=== PATIENT | female | born 1955 | race Caucasian/White ===

== ENCOUNTER → 2016-10-03 | Outpatient (CLI) | payer MEDICARE, OTHER ==
[~2016-10-03] MED LIST: AMBIEN; AMLO10TA PO; AMLO5TAB2 PO; ATOR20TA66 PO; AZIT250T5 PO; BENZ-13 PO; CARB200T76; CEFD300C3 PO; DCS100C; FLUT9.9S NS; GLIP5TAB13 PO; HCT25T; HYDR50CA PO; IBP800T PO; LIDO700A6 TP; LITH300C PO; LSRT50T PO; NITR-65 PO; NYST1000 PO; OMEG-12 PO; OMEP20CA12 PO; ONDAN4ODT PO; OXB5T PO; PRD20T PO; PRV20T PO; ROSU5TAB PO; SCR1T PO; SILV25CR TP; SITA50TA PO; SUCR1TAB PO; SULF-222 PO; TEGRETOL; TRAM50TA2 PO; TRAZ300T3 PO; TRZ100T PO; VENL150T4 PO; VENL75TA6 PO; ZLP10T
--- OUTSIDE RECORDS SUMMARY | 2016-10-03 08:12 | XMS REPORT | Continuity of Care Document ---
Author Author [facility] Organization [facility] Address Unknown Phone Unavailable Care Team Providers Care Costing Manager Name Role Phone NO, LOCAL PHYSICIAN PCP Unavailable Insurance Providers Payer Name Policy Number Subscriber Name Relationship [facility] Administration [id number] Sandra Dobbs 17 Self / Same As Patient Advance Directives Directive Response Recorded Date/Time Advance Directives No 11/07/14 11:15am Health Care Power of Bus Company Manager No 11/07/14 11:15am Organ Donor Yes 11/07/14 11:15am Resuscitation Status Full Code 11/07/14 11:15am Problems Medical Problems Problem Onset Date Status Headache Unknown Active Cough Unknown Active Insomnia Unknown Active Back strain Unknown Active Chest pain Unknown Active Candidiasis of mouth Unknown Active Leukocytosis Unknown Active Sinusitis Unknown Active Medications Medication Dose Route Sig Days/Qty Instructions Order Date Discontinued Date Status Tegretol 09/09/09 09/09/09 Discontinued Ambien 09/09/09 09/09/09 Discontinued Docusate Sodium 09/09/09 07/05/12 Discontinued Hydrochlorothiazide 09/09/09 07/05/12 Discontinued Zolpidem Tartrate 09/09/09 07/05/12 Discontinued Carbamazepine 09/09/09 07/05/12 Discontinued [place] Carbonate 300 Mg PO DAILY 07/05/12 Active [place] Carbonate 900 Mg PO BEDTIME TAKES 3 (300MG) CAPSULES 07/05/12 Active Oxybutynin Chloride 10 Mg PO TWICE A DAY 07/05/12 Active [place]-3/Dha/Epa/Fish Oil 1 Gm PO DAILY 07/05/12 07/27/13 Discontinued Losartan Potassium 50 Mg PO DAILY 07/05/12 07/27/13 Discontinued Glipizide (Glucotrol) 5 Mg PO TWICE A DAY 07/11/12 03/20/13 Discontinued Pravastatin Sod 10 Mg PO BEDTIME 07/11/12 07/27/13 Discontinued Ondansetron HCl 8 Mg PO EVERY 4HRS 10 Qty 09/07/12 07/27/13 Discontinued Sitagliptin Phosphate 1 Each PO BEDTIME 03/20/13 04/15/14 Discontinued Trazodone Hcl 300 Mg PO BEDTIME 03/20/13 09/17/14 Discontinued Omeprazole 1 Cap PO DAILY 30 Qty 03/20/13 04/15/14 Discontinued Ibuprofen 600 Mg PO THREE TIMES A DAY 90 Qty 07/27/13 09/17/14 Discontinued Trimethoprim/Sulfamethoxazole 2 Ea PO TWICE A DAY 40 Qty Higher dosing recommended due to severity of infection 02/09/14 04/15/14 Discontinued Venlafaxine Hcl 150 Mg PO DAILY 04/15/14 09/17/14 Discontinued Amlodipine Besylate 10 Mg PO DAILY 04/15/14 09/17/14 Discontinued Tramadol Hcl 50 Mg PO EVERY 6 HOURS 30 Qty 04/15/14 09/17/14 Discontinued Sitagliptin Phosphate 50 Mg PO BEDTIME 09/17/14 Active Trazodone Hcl 400 Mg PO BEDTIME 09/17/14 Active Silver Sulfadiazine TP TWICE A DAY 09/17/14 Active Omeprazole 20 Mg PO DAILY 09/17/14 09/17/14 Discontinued Venlafaxine Hcl 187.5 Mg PO DAILY TAKES 2 & 1/2 (75MG) TABLETS Active Amlodipine Besylate 10 Mg PO DAILY 09/17/14 Active Omeprazole 20 Mg PO TWICE A DAY 60 Qty 09/17/14 Active Sucralfate 1 G PO DIRECTED 120 Qty hour prior to meals. Make into a slurry by disolving in water and 09/17/14 Active Rosuvastatin Calcium 1 Each PO DAILY 30 Qty 09/17/14 11/07/14 Discontinued Atorvastatin 20 Mg PO DAILY 11/07/14 Active Cefdinir (Omnicef) 1 Each PO TWICE A DAY 20 Qty 11/07/14 11/07/14 Discontinued Nystatin (Mycostatin Oral Suspension) 5 Ml PO FOUR TIMES DAILY 280 Qty 11/07/14 11/07/14 Discontinued Cefdinir (Omnicef) 1 Each PO TWICE A DAY 20 Qty 11/07/14 Active Nystatin (Mycostatin Oral Suspension) 5 Ml PO FOUR TIMES DAILY 280 Qty 11/07/14 Active Social History Social History Problem Response Recorded Date/Time Alcohol Use Denies Use 11/07/2014 11:15am Recreational Drug Use No 11/07/2014 11:15am Recent Foreign Travel No 04/15/2014 7:17am Recent Infectious Disease Exposure No 11/07/2014 11:13am Sexually Transmitted Disease No 11/07/2014 11:15am HIV/AIDS No 11/07/2014 11:15am Smoking Status Never a Smoker 11/07/2014 11:15am Query Response Start Date Stop Date Smoking Status Never a Smoker Hospital Discharge Instructions No hospital discharge instructions. Plan of Care No plan of care. Functional Status No functional status results. Allergies, Adverse Reactions, Alerts Allergen Type Severity Reaction Status Last Updated Niacin Allergy Unknown hives/rash Active 09/16/14 Immunizations Name Given Type Date of Pneumonia Vaccine 02/04/14 Historical Date of Influenza Vaccine 02/04/14 Historical Hepatitis A No Historical Hepatitis B No Historical Tetanus Booster (TDap) Unknown Historical Vital Signs Acute Vital Signs Vital Response Date/Time Temperature (Fahrenheit) 97.2 degrees F (97.6 - 99.5) Temperature (Calculated Celsius) 36.88638 degrees C (36.4 - 37.5) Temperature Source Temporal Pulse Rate (adult) 74 bpm (60 - 90) Respiratory Rate 18 bpm (12 - 24) O2 Sat by Pulse Oximetry 98 % (88 - 100) Blood Pressure 138/82 mm Hg Pain Pain Intensity 10 Height (Feet) 5 feet Height (Inches) 1 inches Height (Calculated Centimeters) 154.804291 cm Weight (Pounds) 248 pounds Weight (Calculated Kilograms) 112.373340 kilograms Calculated BMI 46.85 Results Laboratory Results Test Name Result Units Flags Reference Collection Date/Time Result Date/ Time Comments White Blood Count 17.6 10^3/uL H 4.3-11.0 11/07/2014 12:10pm 11/07/2014 12:30pm Red Blood Count 4.49 10^6/uL 4.35-5.85 11/07/2014 12:10pm 11/07/2014 12 :30pm Hemoglobin 13.1 G/DL 11.5-16.0 11/07/2014 12:10pm 11/07/2014 12:30pm Hematocrit 39 % 35-52 11/07/2014 12:10pm 11/07/2014 12:30pm Mean Corpuscular Volume 86 FL 80-99 11/07/2014 12:10pm 11/07/2014 12: 30pm Mean Corpuscular Hemoglobin 29 PG 25-34 11/07/2014 12:10pm 11/07/2014 12:30pm Mean Corpuscular Hemoglobin Concent 34 G/DL 32-36 11/07/2014 12:10pm 12:30pm Red Cell Distribution Width 14.5 % 10.0-14.5 11/07/2014 12:10pm 2014 12:30pm Platelet Count 286 10^3/uL 130-400 11/07/2014 12:10pm 11/07/2014 12: 30pm Mean Platelet Volume 10.0 FL 7.4-10.4 11/07/2014 12:10pm 11/07/2014 12: 30pm Neutrophils (%) (Auto) 79 % H 42-75 11/07/2014 12:10pm 11/07/2014 12: 30pm Lymphocytes (%) (Auto) 11 % L 12-44 11/07/2014 12:10pm 11/07/2014 12: 30pm Monocytes (%) (Auto) 8 % 0-12 11/07/2014 12:10pm 11/07/2014 12:30pm Eosinophils (%) (Auto) 1 % 0-10 11/07/2014 12:10pm 11/07/2014 12:30pm Basophils (%) (Auto) 0 % 0-10 11/07/2014 12:10pm 11/07/2014 12:30pm Neutrophils # (Auto) 14.0 X 10^3 H 1.8-7.8 11/07/2014 12:10pm 11/07/2014 12:30pm Lymphocytes # (Auto) 2.0 X 10^3 1.0-4.0 11/07/2014 12:10pm 11/07/2014 12:30pm Monocytes # (Auto) 1.5 X 10^3 H 0.0-1.0 11/07/2014 12:10pm 11/07/2014 12: 30pm Eosinophils # (Auto) 0.2 10^3/uL 0.0-0.3 11/07/2014 12:10pm 11/07/2014 12:30pm Basophils # (Auto) 0.0 10^3/uL 0.0-0.1 11/07/2014 12:10pm 11/07/2014 12 :30pm Neutrophils % (Manual) 74 % 11/07/2014 12:10pm 11/07/2014 12:57pm Band Neutrophils 3 % 11/07/2014 12:10pm 11/07/2014 12:57pm Lymphocytes % (Manual) 16 % 11/07/2014 12:10pm 11/07/2014 12:57pm Monocytes % (Manual) 5 % 11/07/2014 12:10pm 11/07/2014 12:57pm Eosinophils % (Manual) 1 % 11/07/2014 12:10pm 11/07/2014 12:57pm Basophils % (Manual) 1 % 11/07/2014 12:10pm 11/07/2014 12:57pm Blood Morphology Comment NORMAL 11/07/2014 12:10pm 11/07/2014 12: 57pm Urine Color YELLOW 11/07/2014 1:20pm 11/07/2014 1:43pm Urine Clarity CLEAR 11/07/2014 1:20pm 11/07/2014 1:43pm Urine pH 7 5-9 11/07/2014 1:20pm 11/07/2014 1:43pm Urine Specific [place] 1.005 * 1.016-1.022 11/07/2014 1:20pm 2014 1:43pm Urine Protein NEGATIVE NEGATIVE 11/07/2014 1:20pm 11/07/2014 1:43pm Urine Glucose (UA) NEGATIVE NEGATIVE 11/07/2014 1:20pm 11/07/2014 1: 43pm Urine RBC (Auto) NEGATIVE NEGATIVE 11/07/2014 1:20pm 11/07/2014 1: 43pm Urine Ketones NEGATIVE NEGATIVE 11/07/2014 1:20pm 11/07/2014 1:43pm Urine Nitrite NEGATIVE NEGATIVE 11/07/2014 1:20pm 11/07/2014 1:43pm Urine Bilirubin NEGATIVE NEGATIVE 11/07/2014 1:20pm 11/07/2014 1: 43pm Urine Urobilinogen NORMAL MG/DL NORMAL 11/07/2014 1:20pm 11/07/2014 1: 43pm Urine Leukocyte Esterase NEGATIVE NEGATIVE 11/07/2014 1:pm 2014 1:43pm Urine RBC NONE /HPF 11/07/2014 1:pm 11/07/2014 1:43pm Urine WBC NONE /HPF 11/07/2014 1:20pm 11/07/2014 1:43pm Urine Bacteria NEGATIVE /HPF 11/07/2014 1:20pm 11/07/2014 1:43pm Urine Squamous Epithelial Cells 0-2 /HPF 11/07/2014 1:20pm 2014 1:43pm Urine Crystals NONE /LPF 11/07/2014 1:20pm 11/07/2014 1:43pm Urine Casts NONE /LPF 11/07/2014 1:pm 11/07/2014 1:43pm Urine Mucus NEGATIVE /LPF 11/07/2014 1:20pm 11/07/2014 1:43pm Urine Culture Indicated NO 11/07/2014 1:20pm 11/07/2014 1:43pm Sodium Level 139 MMOL/L 135-145 11/07/2014 12:10pm 11/07/2014 1:01pm Potassium Level 4.5 MMOL/L 3.6-5.0 11/07/2014 12:10pm 11/07/2014 1: 01pm Chloride Level 106 MMOL/L 98-107 11/07/2014 12:10pm 11/07/2014 1:01pm Carbon Dioxide Level 23 MMOL/L 21-32 11/07/2014 12:1011/07/2014 1: 01pm Blood Urea Nitrogen 11 MG/DL 7-18 11/07/2014 12:1011/07/2014 1:01pm Creatinine 0.70 MG/DL 0.60-1.30 11/07/2014 12:10pm 11/07/2014 1:01pm BUN/Creatinine Ratio 16 11/07/2014 12:10pm 11/07/2014 1:01pm Estimat Glomerular Filtration Rate > 60 11/07/2014 12:10pm 2014 1:01pm GFR INTERPRETIVE DATA UNITS FOR ESTIMATED GFR (eGFR): mL/min/1.73 M2 REFERENCE RANGE FOR ESTIMATED GFR (eGFR) eGFR NORMAL eGFR >60 MODERATELY DECREASED eGFR 30-59 SEVERLY DECREASED eGFR 15-29 KIDNEY FAILURE <15 (OR DIALYSIS) Glucose Level 198 MG/DL H 70-105 11/07/2014 12:10pm 11/07/2014 1:01pm Calcium Level 8.8 MG/DL 8.5-10.1 11/07/2014 12:10pm 11/07/2014 1:01pm Total Bilirubin 0.4 MG/DL 0.1-1.0 11/07/2014 12:10pm 11/07/2014 1:01pm Alkaline Phosphatase 102 U/L 40-136 11/07/2014 12:10pm 11/07/2014 1: 01pm Aspartate Amino Transf (AST/SGOT) 20 U/L 5-34 11/07/2014 12:10pm 2014 1:01pm Alanine Aminotransferase (ALT/SGPT) 36 U/L 0-55 11/07/2014 12:10pm 1:01pm Total Protein 6.8 G/DL 6.4-8.2 11/07/2014 12:10pm 11/07/2014 1:01pm Albumin 3.7 G/DL 3.2-4.5 11/07/2014 12:10pm 11/07/2014 1:01pm Procedures No known history of procedures. Encounters Encounter Location Date/Time Registered Emergency Room Via [facility] 11/07/14 11:14am Discharged Recurring Via [facility] 09/23/14 10:37am Recent Diagnosis
--- NOTE | 2016-10-03 09:42 | Diagnostic Imaging Report ---
CLINICAL INDICATION: Patient had routine eye exam and the doctor wants her to get an MRI of the brain. Patient states he saw something that looked darker than normal on a test he did. EXAM: MRI of the brain/orbits performed without IV contrast. Sequences include axial DWI, ADC map, axial T2, axial FLAIR, axial T1, axial gradient echo, sagittal T1, axial T2 thin through the orbits, and coronal T2 fat-sat thin through the orbits. COMPARISON: Head CT without IV contrast dated 03/02/2014. FINDINGS: There is motion artifact which obscures some portions of this exam especially on the thin cut orbital sequences. There is no evidence of acute cerebral infarct, intracranial hemorrhage, or gross mass effect. There are a few focal and patchy areas of high T2 signal white matter changes seen throughout both cerebral hemispheres and periventricular regions, likely representing chronic small vessel ischemic disease. There is normal leon-white matter distinction. The brain parenchymal volume appears appropriate for patient's age. There is no significant midline shift or herniation. The visualized [place] vascular structures have normal flow void appearance. There is no evidence of hydrocephalus. The basal cisterns are unremarkable. The skull and extracranial soft tissue are unremarkable. The paranasal sinuses are unremarkable. Orbits and globes show no significant abnormality. There is no retrobulbar mass or periorbital inflammation. IMPRESSION: Unremarkable MRI of the brain for age. Orbits show no significant abnormality as visualized. Dictated by: Dictated on workstation # [id number]
== END ==
LOC: RAD 08:09
PROVIDERS: ATTEND Psychiatry & Neurology Neurology
DX: H53.9 Unspecified visual disturbance (principal)
CPT/HCPCS: 70551

== ENCOUNTER → 2016-10-14 | Outpatient (CLI) | payer OTHER ==
[~2016-10-14] VITALS: Ht 152.4 cm; Wt 108.0 kg
[~2016-10-14] MED LIST changes: +REGADENOSON 0.4 MG/5 ML SYR (LEXISCAN) IV ONE
--- OUTSIDE RECORDS SUMMARY | 2016-10-14 07:51 | XMS REPORT | Continuity of Care Document ---
Author Author [facility] Organization [facility] Address Unknown Phone Unavailable Care Team Providers Care Embedded Software Test Engineer Name Role Phone NO, LOCAL PHYSICIAN PCP Unavailable Insurance Providers Payer Name Policy Number Subscriber Name Relationship [facility] Administration [id number] Snadra Dobbs 18 Self / Same As Patient Advance Directives Directive Response Recorded Date/Time Advance Directives No 11/07/14 11:15am Health Care Power of [place]adderman No 11/07/14 11:15am Organ Donor Yes 11/07/14 [...] 09/09/09 07/05/12 Discontinued Carbamazepine 09/09/09 07/05/12 Discontinued [place] Carbonate 300 Mg PO DAILY 07/05/12 Active [place] Carbonate 900 Mg PO BEDTIME TAKES 3 (300MG) CAPSULES 07/05/12 Active Oxybutynin Chloride 10 Mg PO TWICE A DAY 07/05/12 Active [place]-3/Dha/Epa/Fish Oil 1 Gm PO DAILY 07/05/12 07/27/13 [...] F (97.6 - 99.5) Temperature (Calculated Celsius) 36.90969 degrees C (36.4 - 37.5) Temperature Source Temporal Pulse Rate (adult) 74 bpm (60 - 90) Respiratory Rate 18 bpm (12 - 24) O2 Sat by Pulse Oximetry 98 % (88 - 100) Blood Pressure 138/82 mm Hg Pain Pain Intensity 10 Height (Feet) 5 feet Height (Inches) 1 inches Height (Calculated Centimeters) 154.404083 cm Weight (Pounds) 248 pounds Weight (Calculated Kilograms) 112.089801 kilograms Calculated BMI 46.85 Results Laboratory Results [...] 5-9 11/07/2014 1:20pm 11/07/2014 1:43pm Urine Specific [place] 1.005 * 1.016-1.022 11/07/2014 1:20pm 2014 1:43pm [...] Encounter Location Date/Time Registered Emergency Room [facility] 11/07/14 11:14am Discharged Recurring Via [facility] 09/23/14 10:37am Recent Diagnosis
[2016-10-14] MEDS: CATHETER FLUSH 10 ML SYR IV PRN ×2 (07:59→09:04)
[2016-10-14 09:03] VITALS: BP 133/85
--- NOTE | 2016-10-17 10:12 | STRESS TEST ---
PROCEDURE PHYSICIAN: JANI ALAMO RESTING AND POST REGADENOSON TECHNETIUM 99M TETROFOSMIN SPECT CT IMAGING DATE OF PROCEDURE: 10/14/2016 ORDERING PHYSICIAN: Dr. Alamo PRIMARY PHYSICIAN: Dr. Blank INDICATION FOR THE PROCEDURE: Chest discomfort, shortness of breath. Baseline images were carried out after injection of 11 mCi of technetium 99m tetrofosmin. This was followed by 0.4 mg of regadenoson and 32.6 mCi technetium 99m tetrofosmin for stress imaging. The electrocardiogram showed sinus rhythm at baseline with nonspecific T wave abnormality. This did not change significantly with the regadenoson infusion. Overall, the patient tolerated the procedure well. Review of images at rest and following stress, does not indicate any significant perfusion defects consistent with significant myocardial ischemia or infarction. Gated images show normal global left ventricular systolic function was normal regional wall motion. Left ventricular ejection fraction is calculated to be 62%. Left ventricular end volume is 69 mL. TID is absent (1.08). CONCLUSION: 1. No evidence of any significant myocardial ischemia or infarction on this study. 2. Normal regional wall motion. 3. Normal global left ventricular systolic function with a calculated ejection fraction of 62%. Job ID: [id number] Dictated Date: 10/17/2016 09:09:00 Orchestrator Date: 10/17/2016 10:06:44 / stevo
== END ==
LOC: CARD 07:46
PROVIDERS: ATTEND Internal Medicine Cardiovascular Disease
DX: E11.9 Type 2 diabetes mellitus without complications (principal); I10 Essential (primary) hypertension; R07.89 Other chest pain; R06.02 Shortness of breath
CPT/HCPCS: 78452; 93017

== ENCOUNTER → 2016-10-17 | Outpatient (CLI) | payer OTHER ==
[~2016-10-17] MED LIST changes: -REGADENOSON 0.4 MG/5 ML SYR (LEXISCAN) IV ONE
--- OUTSIDE RECORDS SUMMARY | 2016-10-17 10:49 | XMS REPORT | Continuity of Care Document ---
Author Author [facility] Organization [facility] Address Unknown Phone Unavailable Care Team Providers Care Senior Java [email or web address] Developer Name Role Phone NO, LOCAL PHYSICIAN PCP Unavailable Insurance Providers Payer Name Policy Number Subscriber Name Relationship [facility] Administration [id number] Sandra Dobbs 17 Self / Same As Patient Advance Directives Directive Response Recorded Date/Time Advance Directives No 11/07/14 11:15am Health Care Power of Real Estate Accountant No 11/07/14 11:15am Organ Donor Yes 11/07/14 [...] 09/09/09 07/05/12 Discontinued Carbamazepine 09/09/09 07/05/12 Discontinued [place] Carbonate 300 Mg PO DAILY 07/05/12 Active [place] Carbonate 900 Mg PO BEDTIME TAKES 3 (300MG) CAPSULES 07/05/12 Active Oxybutynin Chloride 10 Mg PO TWICE A DAY 07/05/12 Active [place]-3/Dha/Epa/Fish Oil 1 Gm PO DAILY 07/05/12 07/27/13 [...] F (97.6 - 99.5) Temperature (Calculated Celsius) 36.73120 degrees C (36.4 - 37.5) Temperature Source Temporal Pulse Rate (adult) 74 bpm (60 - 90) Respiratory Rate 18 bpm (12 - 24) O2 Sat by Pulse Oximetry 98 % (88 - 100) Blood Pressure 138/82 mm Hg Pain Pain Intensity 10 Height (Feet) 5 feet Height (Inches) 1 inches Height (Calculated Centimeters) 154.429763 cm Weight (Pounds) 248 pounds Weight (Calculated Kilograms) 112.598466 kilograms Calculated BMI 46.85 Results Laboratory Results [...] 5-9 11/07/2014 1:20pm 11/07/2014 1:43pm Urine Specific [place] 1.005 * 1.016-1.022 11/07/2014 1:20pm 2014 1:43pm [...] Encounter Location Date/Time Registered Emergency Room [facility] 11/07/14 11:14am Discharged Recurring Via [facility] 09/23/14 10:37am Recent Diagnosis
[2016-10-17 11:22] LABS: BASOPHILS % (AUTO) 0 % (0-10); EOSINOPHILS # (AUTO) 0.3 10^3/uL (0.0-0.3); EOSINOPHILS % (AUTO) 3 % (0-10); LYMPHOCYTES # (AUTO) 2.1 X 10^3 (1.0-4.0); LYMPHOCYTES % (AUTO) 22 % (12-44); MEAN CORPUSCULAR HEMOGLOBIN 29 PG (25-34); MEAN CORPUSCULAR HGB CONC 34 G/DL (32-36); MEAN CORPUSCULAR VOLUME 85 FL (80-99); MONOCYTES # (AUTO) 0.8 X 10^3 (0.0-1.0); MONOCYTES % (AUTO) 9 % (0-12); NEUTROPHILS # (AUTO) 6.2 X 10^3 (1.8-7.8); NEUTROPHILS % (AUTO) 65 % (42-75); PLATELET COUNT 271 10^3/uL (130-400); RED BLOOD COUNT 4.66 10^6/uL (4.35-5.85); RED CELL DISTRIBUTION WIDTH 14.8 % (10.0-14.5); WHITE BLOOD COUNT 9.4 10^3/uL (4.3-11.0)
[2016-10-17 11:39] LABS: BILIRUBIN,URINE NEGATIVE (NEGATIVE); KETONES,URINE NEGATIVE (NEGATIVE); LEUKOCYTE ESTERASE ,URINE NEGATIVE (NEGATIVE); NITRITE,URINE NEGATIVE (NEGATIVE); PH,URINE 7 (5-9); PROTEIN,URINE NEGATIVE (NEGATIVE); UROBILINOGEN,URINE NORMAL (NORMAL)
[2016-10-17 11:43] LABS: ALBUMIN 4.3 G/DL (3.2-4.5); BILIRUBIN,TOTAL 0.4 MG/DL (0.1-1.0); CALCIUM 9.4 MG/DL (8.5-10.1); CREATININE SERUM 0.95 MG/DL (0.60-1.30); POTASSIUM 3.8 MMOL/L (3.6-5.0); TOTAL PROTEIN 7.4 G/DL (6.4-8.2)
[2016-10-17 11:48] LABS: SQUAMOUS EPITHELIAL CELL,UR 25-50 /HPF
== END ==
LOC: LAB 10:44
PROVIDERS: ATTEND Orthopaedic Surgery Sports Medicine
DX: Z01.812 Encounter for preprocedural laboratory examination (principal); Z11.2 Encounter for screening for other bacterial diseases
CPT/HCPCS: 36415; 80053; 81000; 85025; 87081

== ENCOUNTER 2017-01-22 10:19 | Emergency (ER) | payer MEDICARE, OTHER ==
[~2017-01-22] VITALS: Ht 152.4 cm; Wt 104.3 kg
--- NOTE | 2017-01-22 11:39 | Diagnostic Imaging Report ---
INDICATION: Fall. Pain. COMPARISON: None FINDINGS: 3 views of the left shoulder are obtained. No acute fracture, malalignment or osseous destructive process is seen. There are degenerative changes of the acromioclavicular joint. IMPRESSION: No acute fracture is suspected. Dictated by: Dictated on workstation # [id number]
--- NOTE | 2017-01-22 11:46 | ED Fall/Injury ---
General Chief Complaint: Upper Extremity Stated Complaint: R SHOULDER PAIN, FALL Nursing Triage Note: PT HAD FALL THIS AM AND CO OF L SHOULDER PAIN Source: patient, EMS Exam Limitations: no limitations History of Present Illness Time seen by provider: 10:29 Initial Comments This patient presents to emergency room with left shoulder pain after having a fall at her apartment building. She fell onto a carpeted surface. She has frequent falls due to cerebral palsy. She denies any prodrome. She denies any head or neck injury. There is no loss of consciousness. Pain starts in the posterior shoulder and radiates down to the elbow. She is in no distress. She arrives via EMS. Occurred: just prior to arrival Allergies and Home Medications Allergies Coded Allergies: niacin (Verified Allergy, Unknown, hives/rash, 09/16/14) Home Medications Amlodipine Besylate 10 Mg Tablet, 10 MG PO DAILY, (Reported) Atorvastatin 20 Mg Tablet, 20 MG PO DAILY, (Reported) Azithromycin 250 Mg Tablet, 250 MG PO DAILY, #6 2 tabs on day 1 then 1 tab daily 4 days Prescribed by: SABINE LAGOS on 07/02/15 1248 Benzonatate 100 Mg Capsule, 200 MG PO Q8H PRN for COUGH, #20 Prescribed by: SABINE LAGOS on 07/02/15 1248 Cefdinir 300 Mg Capsule, 1 EACH PO BID, #20 Ref 0 Prescribed by: SOFYA EVANS on 11/07/14 1553 Fluticasone Propionate 9.9 Ml [place].susp, 2 SPRAYS NS DAILY, #1 Prescribed by: SABINE LAGOS on 07/02/15 1248 Hydroxyzine Pamoate 50 Mg Capsule, 50 MG PO Q6H, #5 Prescribed by: JARVIS PERRY on 09/13/15 0550 Lidocaine 700 Mg Adh..patch, 700 MG TP UD PRN for PAIN, #30 Ref 0 apply 1 patch to the rt knee daily prn pain. remove patch after 12 hours. Prescribed by: SOFYA EVANS on 07/04/16 1537 [place] Carbonate 300 Mg Capsule, 300 MG PO DAILY, (Reported) [place] Carbonate 300 Mg Capsule, 900 MG PO HS, (Reported) TAKES 3 (300MG) CAPSULES Nitrofurantoin Monohyd/M-Cryst 100 Mg Capsule, 100 MG PO BID, #20 Prescribed by: JARVIS PERRY on 09/13/15 0550 Nystatin 60 Ml Btl, 5 ML PO QID, #280 Ref 0 Prescribed by: SOFYA EVANS on 11/07/14 1553 Omeprazole 20 Mg Capsule.dr, 20 MG PO BID, #60 Ref 1 Prescribed by: VENKAT ORTIZ on 09/17/14 1618 Oxybutynin Chloride 5 Mg Tab, 10 MG PO BID, (Reported) Prednisone 20 Mg Tab, 60 MG PO DAILY, #6 Ref 0 Prescribed by: SOFYA EVANS on 07/04/16 1537 Silver Sulfadiazine 25 Gm Cream.gm., TP BID, (Reported) Sitagliptin Phosphate 50 Mg Tablet, 50 MG PO HS, (Reported) Sucralfate 1 G Tablet, 1 G PO UD, #120 Take Before meals and at Bedtime (four times daily) at least a half hour prior to meals. Make into a slurry by disolving in water and drink. Prescribed by: VENKAT ORTIZ on 09/17/14 1618 Tramadol HCl 50 Mg Tablet, 50 MG PO Q4H PRN for PAIN, #14 Ref 0 Prescribed by: SOFYA EVANS on 07/04/16 1537 Trazodone Hcl 100 Mg Tablet, 400 MG PO HS, (Reported) TAKES 4 (100MG) TABLETS Venlafaxine Hcl 75 Mg Tablet, 187.5 MG PO DAILY, (Reported) TAKES 2 & 1/2 (75MG) TABLETS Constitutional: no symptoms reported Eyes: No Symptoms Reported Ears, Nose, Mouth, Throat: no symptoms reported Respiratory: no symptoms reported Cardiovascular: no symptoms reported Gastrointestinal: no symptoms reported Genitourinary: no symptoms reported Musculoskeletal: see HPI Skin: no symptoms reported Psychiatric/Neurological: See HPI Past Tydlydt-Oeaida-Szsrbb Hx Patient Social History Alcohol Use: Denies Use Recreational Drug Use: No Smoking Status: Never a Smoker Recent Foreign Travel: No Contact w/Someone Who Travel: No Recent Infectious Disease Expo: No Recent Hopitalizations: No Immunizations Up To Date Tetanus Booster (TDap): Unknown PED Vaccines UTD: No Date of Pneumonia Vaccine: February 04, 2014 Date of Influenza Vaccine: Jun 25, 2016 Surgeries HX Surgeries: Yes (LEFT AND RIGHT ACHILLES AND BONE SPUR) Surgeries: Orthopedic, Tonsillectomy Respiratory Hx Respiratory Disorders: No Cardiovascular Hx Cardiac Disorders: Yes Cardiac Disorders: Hypertension Neurological Hx Neurological Disorders: Yes Neurological Disorders: Cerebral Palsy Reproductive System Hx Reproductive Disorders: No Sexually Transmitted Disease: No HIV/AIDS: No Female Reproductive Disorders: Menstrual Problems Genitourinary Hx Genitourinary Disorders: Yes (OVERACTIVE BLADDER) Genitourinary Disorders: Kidney Stones Gastrointestinal Hx Gastrointestinal Disorders: Yes Gastrointestinal Disorders: Gastroesophageal Reflux Musculoskeletal Hx Musculoskeletal Disorders: Yes (CEREBRAL PALSY) Endocrine Hx Endocrine Disorders: Yes (OBESITY) Endocrine Disorders: Diabetes, Non-Insulin dep HEENT HX ENT Disorders: No Loss of Vision: Denies Hearing Impairment: Denies Cancer Hx Cancer: No Psychosocial Hx Psychiatric Problems: Yes Behavioral Health Disorders: Anxiety, Bipolar, Depression Integumentary HX Skin/Integumentary Disorder: No Blood Transfusions Hx Blood Disorders: No Adverse Reaction to a Blood Tr: No Family Medical History Significant Family History: Heart Disease, Cancer, COPD, Stroke Family Medial History: Completed stroke G8 SISTER, Onset:40's - 50 Lung cancer 19 FATHER, Onset:60 years & older Respiratory disorder 19 MOTHER, Onset:50's - 60 (copd) Physical Exam Vital Signs Vital Sign - Last 12Hours 01/22/17 10:20 Temp 99.5 Pulse 72 Resp 18 B/P (MAP) 151/86 Pulse Ox 98 Capillary Refill : Less Than 3 Seconds General Appearance: WD/WN, no apparent distress, obese HEENT: PERRL/EOMI, normal ENT inspection Neck: non-tender, full range of motion, supple, normal inspection Cardiovascular: regular rate, rhythm, no edema, no murmur Respiratory: lungs clear, normal breath sounds, no respiratory distress, no accessory muscle use Gastrointestinal: normal bowel sounds, non tender, soft Extremities: normal inspection, other (Tenderness posterior to the left shoulder and over the lateral joint space. Patient has limited range of motion with abduction and internal rotation) Neurologic/Psychiatric: manager strategy II-XII nml as tested, no motor/sensory deficits, alert, normal mood/affect, oriented x 3, other (She demonstrates ability to ambulate safely and independently) Skin: normal color, warm/dry [place] Coma Score Best Eye Response: (4) Open Spontaneously Best Verbal Response: (5) Oriented Best Motor Response: (6) Obeys Commands [place] Total: 15 Progress/Results/Core Measures Results/Orders Lab Results Laboratory Tests Test 01/22/17 11:35 Range/Units Urine Color YELLOW Urine Clarity CLEAR Urine pH 7 5-9 Urine Specific [place] 1.005 L 1.016-1.022 Urine Protein NEGATIVE NEGATIVE Urine Glucose (UA) NEGATIVE NEGATIVE Urine Ketones NEGATIVE NEGATIVE Urine Nitrite NEGATIVE NEGATIVE Urine Bilirubin NEGATIVE NEGATIVE Urine Urobilinogen NORMAL NORMAL MG/DL Urine Leukocyte Esterase NEGATIVE NEGATIVE Urine RBC (Auto) NEGATIVE NEGATIVE Urine RBC NONE /HPF Urine WBC RARE /HPF Urine Squamous Epithelial Cells 0-2 /HPF Urine Crystals NONE /LPF Urine Bacteria NEGATIVE /HPF Urine Casts NONE /LPF Urine Mucus NEGATIVE /LPF Urine Culture Indicated NO My Orders Orders - GLO BULL MD Shoulder, Left, 3 Views (01/22/17 11:24) Ua Culture If Indicated (01/22/17 11:46) Ketorolac Injection (Toradol Injection) (01/22/17 11:57) Ketorolac Injection (Toradol Injection) (01/22/17 12:15) Vital Signs/I&O Vital Sign - Last 12Hours 01/22/17 01/22/17 10:20 12:30 Temp 99.5 Pulse 72 70 Resp 18 18 B/P (MAP) 151/86 Pulse Ox 98 99 Blood Pressure Mean: 107 Progress Note : Progress Note X-ray showed no acute bony injury. Toradol was administered for treatment of pain. Patient was instructed to follow-up if pain and functional or not improving with NSAID therapy. Diagnostic Imaging Diagonstic Imaging: Xray Plain Films/CT/US/NM/MRI: other (left shoulder) Comments Left shoulder x-ray viewed by me and report reviewed. See report below: NAME: SANDRA WHITMAN [facility] REC#: [id number] PT STATUS: REG ER : 1955 PHYSICIAN: GLO BULL MD ADMIT DATE: 01/22/17/ER Draft Date of Exam:01/22/17 SHOULDER, LEFT, 3 VIEWS INDICATION: Fall. Pain. COMPARISON: None FINDINGS: 3 views of the left shoulder are obtained. No acute fracture, malalignment or osseous destructive process is seen. There are degenerative changes of the acromioclavicular joint. IMPRESSION: No acute fracture is suspected. Dictated on workstation # [id number] Dict: 01/22/17 1136 Trans: 01/22/17 113[facility] [id number] Interpreted by: WILL BISWAS DO Departure Impression Impression: Primary Impression: Fall on same level Qualified Codes: W18.30XA - Fall on same level, unspecified, initial encounter Additional Impression: Injury of left shoulder Qualified Codes: S49.92XA - Unspecified injury of left shoulder and upper arm , initial encounter Disposition: 01 HOME, SELF-CARE Condition: Improved Departure-Patient Inst. Decision time for Depature: 11:51 Referrals: KANG FLORES MD (PCP) Primary Care Physician MERE CROWELL (Family) Primary Care Physician Patient Instructions: Preventing Falls Add. Discharge Instructions: Use a cane or walker as needed to prevent falls. You may take Tylenol and/or ibuprofen for pain. Return to care if symptoms worsen. See your primary care provider if function and pain of shoulder is not improving after a couple days of ibuprofen therapy. All discharge instructions reviewed with patient and/or family. Voiced understanding. GLO BULL MD Jan 22, 2017 11:46
[2017-01-22] MEDS ORDERED: KETOROLAC 60 MG/2 ML VIAL IM ONE ×2 (11:57→12:15)
[2017-01-22 11:59] LABS: BILIRUBIN,URINE NEGATIVE (NEGATIVE); KETONES,URINE NEGATIVE (NEGATIVE); LEUKOCYTE ESTERASE ,URINE NEGATIVE (NEGATIVE); NITRITE,URINE NEGATIVE (NEGATIVE); PH,URINE 7 (5-9); PROTEIN,URINE NEGATIVE (NEGATIVE); UROBILINOGEN,URINE NORMAL (NORMAL)
[2017-01-22 12:13] LABS: SQUAMOUS EPITHELIAL CELL,UR 0-2 /HPF; WBC,URINE RARE /HPF
[2017-01-22 12:30] VITALS: BP 151/86
== END 2017-01-22 12:29 | disposition home or self-care (01) ==
LOC: EDUNIT# 10:19 → ER 10:20
DX: S49.92XA Unspecified injury of left shoulder and upper arm, initial encounter (principal); G80.9 Cerebral palsy, unspecified; R29.6 Repeated falls; E11.9 Type 2 diabetes mellitus without complications; I10 Essential (primary) hypertension; Z79.899 Other long term (current) drug therapy; W01.0XXA Fall on same level from slipping, tripping and stumbling without subsequent striking against object, initial encounter; Y92.009 Unspecified place in unspecified non-institutional (private) residence as the place of occurrence of the external cause; Y99.8 Other external cause status
CPT/HCPCS: 73030; 81000; 96372; 99283

== ENCOUNTER 2017-01-24 12:06 | Emergency (ER) | payer MEDICARE ==
[~2017-01-24] VITALS: Ht 154.9 cm; Wt 104.3 kg
--- NOTE | 2017-01-24 12:12 | ED Fall/Injury ---
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 Reports of a fall and head injury without loss of consciousness and right elbow abrasion. Patient normally and relates with a walker but was not using her walker today when she fell. Struck the right side of her head but as mentioned did not lose consciousness. She does have a slight headache. No neck pain. She is not on blood thinners. She denies any chest abdomen or pelvis pain. No lower extremity pain. She does have pain to the dorsal aspect of the right elbow with an abrasion to that location but full range of motion and movement of the arm. She was here 3 days ago for an injury to the left arm this was x- rayed and found be without injury. Occurred: just prior to arrival Severity: moderate Injuries/Pain Location: head, upper extremity Context: lost balance Loss of Consciousness: no loss of consciousness Associated Symptoms (Fall): No Abdominal Pain, No Chest Pain, No Confusion, No Dizziness, No Headache Allergies and Home Medications Allergies Coded Allergies: niacin (Verified Allergy, Unknown, hives/rash, 09/16/14) Home Medications Amlodipine Besylate 10 Mg Tablet, 10 MG PO DAILY, (Reported) Atorvastatin 20 Mg Tablet, 20 MG PO DAILY, (Reported) Azithromycin 250 Mg Tablet, 250 MG PO DAILY, #6 2 tabs on day 1 then 1 tab daily 4 days Prescribed by: SABINE LAGOS on 07/02/15 1248 Benzonatate 100 Mg Capsule, 200 MG PO Q8H PRN for COUGH, #20 Prescribed by: SABINE LAGOS on 07/02/15 1248 Cefdinir 300 Mg Capsule, 1 EACH PO BID, #20 Ref 0 Prescribed by: SOFYA EVANS on 11/07/14 1553 Fluticasone Propionate 9.9 Ml [place].susp, 2 SPRAYS NS DAILY, #1 Prescribed by: SABINE LAGOS on 07/02/15 1248 Hydroxyzine Pamoate 50 Mg Capsule, 50 MG PO Q6H, #5 Prescribed by: JARVIS PERRY on 09/13/15 0550 Lidocaine 700 Mg Adh..patch, 700 MG TP UD PRN for PAIN, #30 Ref 0 apply 1 patch to the rt knee daily prn pain. remove patch after 12 hours. Prescribed by: SOFYA EVANS on 07/04/16 1537 [place] Carbonate 300 Mg Capsule, 300 MG PO DAILY, (Reported) [place] Carbonate 300 Mg Capsule, 900 MG PO HS, (Reported) TAKES 3 (300MG) CAPSULES Nitrofurantoin Monohyd/M-Cryst 100 Mg Capsule, 100 MG PO BID, #20 Prescribed by: JARVIS PERRY on 09/13/15 0550 Nystatin 60 Ml Btl, 5 ML PO QID, #280 Ref 0 Prescribed by: SOFYA EVANS on 11/07/14 1553 Omeprazole 20 Mg Capsule.dr, 20 MG PO BID, #60 Ref 1 Prescribed by: VENKAT ORTIZ on 09/17/14 1618 Oxybutynin Chloride 5 Mg Tab, 10 MG PO BID, (Reported) Prednisone 20 Mg Tab, 60 MG PO DAILY, #6 Ref 0 Prescribed by: SOFYA EVANS on 07/04/16 1537 Silver Sulfadiazine 25 Gm Cream.gm., TP BID, (Reported) Sitagliptin Phosphate 50 Mg Tablet, 50 MG PO HS, (Reported) Sucralfate 1 G Tablet, 1 G PO UD, #120 Take Before meals and at Bedtime (four times daily) at least a half hour prior to meals. Make into a slurry by disolving in water and drink. Prescribed by: VENKAT ORTIZ on 09/17/14 1618 Tramadol HCl 50 Mg Tablet, 50 MG PO Q4H PRN for PAIN, #14 Ref 0 Prescribed by: SOFYA EVANS on 07/04/16 1537 Trazodone Hcl 100 Mg Tablet, 400 MG PO HS, (Reported) TAKES 4 (100MG) TABLETS Venlafaxine Hcl 75 Mg Tablet, 187.5 MG PO DAILY, (Reported) TAKES 2 & 1/2 (75MG) TABLETS Constitutional: see HPI Eyes: No Symptoms Reported Ears, Nose, Mouth, Throat: no symptoms reported Respiratory: no symptoms reported Cardiovascular: no symptoms reported Genitourinary: no symptoms reported Musculoskeletal: see HPI Skin: see HPI Psychiatric/Neurological: No Symptoms Reported Past Tvgjqha-Jnmgim-Mxkulo Hx Patient Social History Recent Hopitalizations: No Immunizations Up To Date Tetanus Booster (TDap): Unknown PED Vaccines UTD: No Date of Pneumonia Vaccine: February 04, 2014 Date of Influenza Vaccine: Jun 25, 2016 Surgeries HX Surgeries: Yes (LEFT AND RIGHT ACHILLES AND BONE SPUR) Surgeries: Orthopedic, Tonsillectomy Respiratory Hx Respiratory Disorders: No Cardiovascular Hx Cardiac Disorders: Yes Cardiac Disorders: Hypertension Neurological Hx Neurological Disorders: Yes Neurological Disorders: Cerebral Palsy Reproductive System Hx Reproductive Disorders: No Sexually Transmitted Disease: No HIV/AIDS: No Female Reproductive Disorders: Menstrual Problems Genitourinary Hx Genitourinary Disorders: Yes (OVERACTIVE BLADDER) Genitourinary Disorders: Kidney Stones Gastrointestinal Hx Gastrointestinal Disorders: Yes Gastrointestinal Disorders: Gastroesophageal Reflux Musculoskeletal Hx Musculoskeletal Disorders: Yes (CEREBRAL PALSY) Endocrine Hx Endocrine Disorders: Yes (OBESITY) Endocrine Disorders: Diabetes, Non-Insulin dep HEENT HX ENT Disorders: No Loss of Vision: Denies Hearing Impairment: Denies Cancer Hx Cancer: No Psychosocial Hx Psychiatric Problems: Yes Behavioral Health Disorders: Anxiety, Bipolar, Depression Integumentary HX Skin/Integumentary Disorder: No Blood Transfusions Hx Blood Disorders: No Adverse Reaction to a Blood Tr: No Family Medical History Significant Family History: Heart Disease, Cancer, COPD, Stroke Family Medial History: Completed stroke G8 SISTER, Onset:40's - 50 Lung cancer 19 FATHER, Onset:60 years & older Respiratory disorder 19 MOTHER, Onset:50's - 60 (copd) Physical Exam Vital Signs Capillary Refill : General Appearance: WD/WN, no apparent distress HEENT: PERRL/EOMI, normal ENT inspection Neck: non-tender, full range of motion Respiratory: no respiratory distress, no accessory muscle use Gastrointestinal: normal bowel sounds, non tender, soft Extremities: normal range of motion, non-tender, other (abrasion of dorsal aspect of the right elbow without laceration. Minimal ecchymosis. Full flexion and extension of the elbow with supination and pronation.) Neurologic/Psychiatric: alert, normal mood/affect, oriented x 3 Skin: normal color, warm/dry [place] Coma Score Best Eye Response: (4) Open Spontaneously Best Verbal Response: (5) Oriented Best Motor Response: (6) Obeys Commands [place] Total: 15 Progress/Results/Core Measures Results/Orders My Orders Orders - SABINE LAGOS APRN Ct Head/Cervical Spine Wo (01/24/17 12:09) Elbow, Right, 3 Views (01/24/17 12:09) Dipht,Pertuss(Acell),Tet Adult (Boostrix (01/24/17 12:15) Departure Impression Impression: Primary Impression: Elbow abrasion Additional Impression: Head injury Disposition: 01 HOME, SELF-CARE Condition: Stable Departure-Patient Inst. Decision time for Depature: 12:12 Referrals: [facility] (PCP/Family) Primary Care Physician Patient Instructions: Skin Abrasions (DC) Add. Discharge Instructions: 1. Return to ER for any concerns 2. Follow-up with your doctor later this week 3. Tylenol and Motrin for any pain All discharge instructions reviewed with patient and/or family. Voiced understanding. SABINE LAGOS APRN January 24, 2017 12:12
[2017-01-24] MEDS ORDERED: TETANUS,DIPTH,PERTUSS P/F (BOOSTRIX) 0.5 ML VIAL IM ONE (12:15)
--- NOTE | 2017-01-24 12:43 | Diagnostic Imaging Report ---
PROCEDURE: CT head and CT cervical spine without contrast. TECHNIQUE: Multiple contiguous axial images were obtained through the brain and cervical spine without the use of intravenous contrast. Sagittal and coronal reformations through the cervical spine were then performed. INDICATION: Patient fell and struck the posterior head on a metal rail, head and neck pain. COMPARISON: CT head 03/02/2014. DISCUSSION: Head: Mild right parietal scalp soft tissue swelling. No underlying calvarial fracture identified. No intracranial hemorrhage, mass, midline shift, or hydrocephalus. The ventricles and sulci are normal size and configuration for age. The visualized orbits, paranasal sinuses, mastoid air cells, and calvarium are unremarkable. Cervical spine: Diffuse moderate degenerative changes are noted throughout the cervical spine. There is no acute fracture or subluxation identified. Alignment is anatomic. Paraspinal soft tissues are unremarkable. IMPRESSION: 1. Mild right parietal scalp soft tissue swelling. No acute intracranial abnormality or calvarial fracture identified. 2. Moderate cervical spondylosis. No acute fracture identified. Dictated by: Dictated on workstation # [id number]
--- NOTE | 2017-01-24 12:44 | Diagnostic Imaging Report ---
Three views of the right elbow. INDICATION: Fall. FINDINGS: No fracture, dislocation or radiopaque foreign body is seen. There is, however, minimal prominence of the posterior fat pad in the elbow which may relate to an effusion. No radiopaque foreign body. IMPRESSION: No fracture seen. Question of an elbow effusion. Correlate clinically. Dictated by: Dictated on workstation # [id number]
[2017-01-24 13:10] VITALS: BP 149/92
== END 2017-01-24 12:59 | disposition home or self-care (01) ==
LOC: EDUNIT# 12:06 → ER 12:08
DX: S09.90XA Unspecified injury of head, initial encounter (principal); S50.311A Abrasion of right elbow, initial encounter; Z23 Encounter for immunization; E11.9 Type 2 diabetes mellitus without complications; I10 Essential (primary) hypertension; G80.9 Cerebral palsy, unspecified; E66.9 Obesity, unspecified; Z79.899 Other long term (current) drug therapy; W01.0XXA Fall on same level from slipping, tripping and stumbling without subsequent striking against object, initial encounter; Y92.22 Religious institution as the place of occurrence of the external cause; Y99.2 Volunteer activity
CPT/HCPCS: 70450; 72125; 73080; 90471; 90715; 99283

== ENCOUNTER 2017-01-26 14:56 | Emergency (ER) | payer MEDICARE ==
[~2017-01-26] VITALS: Ht 152.4 cm; Wt 104.3 kg
--- NOTE | 2017-01-26 15:29 | ED General ---
General Chief Complaint: Dizziness/Syncope Stated Complaint: DIZZINESS/MULTIPLE FALLS Nursing Triage Note: pt states monday she fell, monday she fell and hit her head then fell to the floor. Monday she felt very dizzy while lying in bed. today she has had x4 dizzy spells. no LOC stated from any falls. Nursing Sepsis Screen: No Definite Risk Source of Information: Patient Exam Limitations: No Limitations History of Present Illness Time Seen by Provider: 15:28 Initial Comments To ER with reports of frequent falls recently she states are secondary to dizziness. She presents today with no new falls since her last evaluation here but persistent and possibly even increased dizziness with movement. She states just move and change position very slowly. She normally and lives with a walker. Timing/Duration: 1-2 Days Severity: Moderate Associated Systoms: No Chest Pain, No Cough, No Diaphoresis, No Fever/Chills, No Headaches, No Loss of Appetite, No Malaise, No Nausea/Vomiting Allergies and Home Medications Allergies Coded Allergies: niacin (Verified Allergy, Unknown, hives/rash, 09/16/14) Home Medications Amlodipine Besylate 10 Mg Tablet, 10 MG PO DAILY, (Reported) Atorvastatin 20 Mg Tablet, 20 MG PO DAILY, (Reported) Azithromycin 250 Mg Tablet, 250 MG PO DAILY, #6 2 tabs on day 1 then 1 tab daily 4 days Prescribed by: SABINE LAGOS on 07/02/15 1248 Benzonatate 100 Mg Capsule, 200 MG PO Q8H PRN for COUGH, #20 Prescribed by: SABINE LAGOS on 07/02/15 1248 Cefdinir 300 Mg Capsule, 1 EACH PO BID, #20 Ref 0 Prescribed by: SOFYA EVANS on 11/07/14 1553 Fluticasone Propionate 9.9 Ml [place].susp, 2 SPRAYS NS DAILY, #1 Prescribed by: SABINE LAGSO on 07/02/15 1248 Hydroxyzine Pamoate 50 Mg Capsule, 50 MG PO Q6H, #5 Prescribed by: JARVIS PERRY on 09/13/15 0550 Lidocaine 700 Mg Adh..patch, 700 MG TP UD PRN for PAIN, #30 Ref 0 apply 1 patch to the rt knee daily prn pain. remove patch after 12 hours. Prescribed by: SOFYA EVANS on 07/04/16 1537 [place] Carbonate 300 Mg Capsule, 300 MG PO DAILY, (Reported) [place] Carbonate 300 Mg Capsule, 900 MG PO HS, (Reported) TAKES 3 (300MG) CAPSULES Nitrofurantoin Monohyd/M-Cryst 100 Mg Capsule, 100 MG PO BID, #20 Prescribed by: JARVIS PERRY on 09/13/15 0550 Nystatin 60 Ml Btl, 5 ML PO QID, #280 Ref 0 Prescribed by: SOFYA EVANS on 11/07/14 1553 Omeprazole 20 Mg Capsule.dr, 20 MG PO BID, #60 Ref 1 Prescribed by: VENKAT ORTIZ on 09/17/14 1618 Oxybutynin Chloride 5 Mg Tab, 10 MG PO BID, (Reported) Prednisone 20 Mg Tab, 60 MG PO DAILY, #6 Ref 0 Prescribed by: SOFYA EVANS on 07/04/16 1537 [place] Sulfadiazine 25 Gm Cream.gm., TP BID, (Reported) Sitagliptin Phosphate 50 Mg Tablet, 50 MG PO HS, (Reported) Sucralfate 1 G Tablet, 1 G PO UD, #120 Take Before meals and at Bedtime (four times daily) at least a half hour prior to meals. Make into a slurry by disolving in water and drink. Prescribed by: VENKAT ORTIZ on 09/17/14 1618 Tramadol HCl 50 Mg Tablet, 50 MG PO Q4H PRN for PAIN, #14 Ref 0 Prescribed by: SOFYA EVANS on 07/04/16 1537 Trazodone Hcl 100 Mg Tablet, 400 MG PO HS, (Reported) TAKES 4 (100MG) TABLETS Venlafaxine Hcl 75 Mg Tablet, 187.5 MG PO DAILY, (Reported) TAKES 2 & 1/2 (75MG) TABLETS Constitutional: see HPI EENTM: see HPI Respiratory: no symptoms reported Cardiovascular: no symptoms reported Genitourinary: no symptoms reported Musculoskeletal: no symptoms reported Skin: no symptoms reported Psychiatric/Neurological: No Symptoms Reported Hematologic/Lymphatic: No Symptoms Reported Immunological/Allergic: no symptoms reported Past Esvhgoj-Iaowyk-Czgyrl Hx Patient Social History Alcohol Use: Denies Use Recreational Drug Use: No Smoking Status: Never a Smoker 2nd Hand Smoke Exposure: No Recent Foreign Travel: No Contact w/Someone Who Travel: No Recent Infectious Disease Expo: No Recent Hopitalizations: No Immunizations Up To Date Tetanus Booster (TDap): Unknown PED Vaccines UTD: No Date of Pneumonia Vaccine: February 04, 2014 Date of Influenza Vaccine: Jun 25, 2016 Seasonal Allergies Seasonal Allergies: No Surgeries HX Surgeries: Yes (LEFT AND RIGHT ACHILLES AND BONE SPUR) Surgeries: Orthopedic, Tonsillectomy Respiratory Hx Respiratory Disorders: No Cardiovascular Hx Cardiac Disorders: Yes Cardiac Disorders: Hypertension Neurological Hx Neurological Disorders: Yes Neurological Disorders: Cerebral Palsy Reproductive System Hx Reproductive Disorders: No Sexually Transmitted Disease: No HIV/AIDS: No Female Reproductive Disorders: Menstrual Problems Genitourinary Hx Genitourinary Disorders: Yes (OVERACTIVE BLADDER) Genitourinary Disorders: Kidney Stones Gastrointestinal Hx Gastrointestinal Disorders: Yes Gastrointestinal Disorders: Gastroesophageal Reflux Musculoskeletal Hx Musculoskeletal Disorders: Yes (CEREBRAL PALSY) Endocrine Hx Endocrine Disorders: Yes (OBESITY) Endocrine Disorders: Diabetes, Non-Insulin dep HEENT HX ENT Disorders: No Loss of Vision: Denies Hearing Impairment: Denies Cancer Hx Cancer: No Psychosocial Hx Psychiatric Problems: Yes Behavioral Health Disorders: Anxiety, Bipolar, Depression Integumentary HX Skin/Integumentary Disorder: No Blood Transfusions Hx Blood Disorders: No Adverse Reaction to a Blood Tr: No Family Medical History Significant Family History: Heart Disease, Cancer, COPD, Stroke Family Medial History: Completed stroke G8 SISTER, Onset:40's - 50 Lung cancer 19 FATHER, Onset:60 years & older Respiratory disorder 19 MOTHER, Onset:50's - 60 (copd) Physical Exam Vital Signs Vital Sign - Last 12Hours 01/26/17 15:05 Temp 97.2 Pulse 73 Resp 18 B/P (MAP) 149/81 Pulse Ox 97 O2 Delivery Room Air Capillary Refill : Less Than 3 Seconds General Appearance: No Apparent Distress, WD/WN Eyes: Bilateral Eye EOMI, Bilateral Eye Normal Inspection, Bilateral Eye PERRL HEENT: PERRL/EOMI, TMs Normal Neck: Full Range of Motion, Normal Inspection Respiratory: Normal Breath Sounds, No Accessory Muscle Use, No Respiratory Distress Cardiovascular: Regular Rate, Rhythm, Normal Peripheral Pulses Gastrointestinal: Normal Bowel Sounds, Non Tender, Soft Extremity: Normal Capillary Refill, Normal Inspection Neurologic/Psychiatric: Alert, Oriented x3 Skin: Normal Color, Warm/Dry Progress/Results/Core Measures Results/Orders Lab Results Laboratory Tests Test 01/26/17 15:22 01/26/17 15:40 Range/Units White Blood Count 10.6 4.3-11.0 10^3/uL Red Blood Count 4.58 4.35-5.85 10^6/uL Hemoglobin 13.2 11.5-16.0 G/DL Hematocrit 40 35-52 % Mean Corpuscular Volume 87 80-99 FL Mean Corpuscular Hemoglobin 29 25-34 PG Mean Corpuscular Hemoglobin Concent 33 32-36 G/DL Red Cell Distribution Width 14.1 10.0-14.5 % Platelet Count 246 130-400 10^3/uL Mean Platelet Volume 10.4 7.4-10.4 FL Neutrophils (%) (Auto) 68 42-75 % Lymphocytes (%) (Auto) 21 12-44 % Monocytes (%) (Auto) 9 0-12 % Eosinophils (%) (Auto) 2 0-10 % Basophils (%) (Auto) 0 0-10 % Neutrophils # (Auto) 7.2 1.8-7.8 X 10^3 Lymphocytes # (Auto) 2.2 1.0-4.0 X 10^3 Monocytes # (Auto) 0.9 0.0-1.0 X 10^3 Eosinophils # (Auto) 0.2 0.0-0.3 10^3/uL Basophils # (Auto) 0.0 0.0-0.1 10^3/uL Sodium Level 138 135-145 MMOL/L Potassium Level 4.7 3.6-5.0 MMOL/L Chloride Level 108 H 98-107 MMOL/L Carbon Dioxide Level 23 21-32 MMOL/L Anion Gap 7 5-14 MMOL/L Blood Urea Nitrogen 13 7-18 MG/DL Creatinine 0.90 0.60-1.30 MG/DL Estimat Glomerular Filtration Rate > 60 BUN/Creatinine Ratio 14 Glucose Level 302 H 70-105 MG/DL Calcium Level 9.0 8.5-10.1 MG/DL Total Bilirubin 0.4 0.1-1.0 MG/DL Aspartate Amino Transf (AST/SGOT) 26 5-34 U/L Alanine Aminotransferase (ALT/SGPT) 45 0-55 U/L Alkaline Phosphatase 88 40-136 U/L Troponin I < 0.30 <0.30 NG/ML Total Protein 7.0 6.4-8.2 G/DL Albumin 3.9 3.2-4.5 G/DL Thyroid Stimulating Hormone (TSH) 1.18 0.35-4.94 UIU/ML Urine Color YELLOW Urine Clarity CLEAR Urine pH 7 5-9 Urine Specific [place] 1.005 L 1.016-1.022 Urine Protein 1+ H NEGATIVE Urine Glucose (UA) 3+ H NEGATIVE Urine Ketones NEGATIVE NEGATIVE Urine Nitrite NEGATIVE NEGATIVE Urine Bilirubin NEGATIVE NEGATIVE Urine Urobilinogen NORMAL NORMAL MG/DL Urine Leukocyte Esterase NEGATIVE NEGATIVE Urine RBC (Auto) NEGATIVE NEGATIVE Urine RBC RARE /HPF Urine WBC NONE /HPF Urine Squamous Epithelial Cells 0-2 /HPF Urine Crystals NONE /LPF Urine Bacteria NONE /HPF Urine Casts NONE /LPF Urine Mucus NEGATIVE /LPF Urine Culture Indicated NO My Orders Orders - SABINE LAGOS APRN Thyroid Stimulating Hormone (01/26/17 15:16) Continuous Ekg Monitoring (01/26/17 15:16) Ekg Tracing (01/26/17 15:16) Ua Culture If Indicated (01/26/17 15:16) Cbc With Automated Diff (01/26/17 15:16) Comprehensive Metabolic Panel (01/26/17 15:16) Troponin I (01/26/17 15:16) Meclizine Tablet (Antivert Tablet) (01/26/17 15:30) Ns Iv 500 Ml (Sodium Chloride 0.9%) (01/26/17 16:30) Medications Given in ED Current Medications Medications Dose Ordered Sig/Deborah Route Start Time Stop Time Status Last Admin Dose Admin Meclizine HCl 25 mg ONCE ONCE PO 01/26/17 15:30 01/26/17 15:31 DC 01/26/17 15:35 25 MG Vital Signs/I&O Vital Sign - Last 12Hours 01/26/17 15:05 Temp 97.2 Pulse 73 Resp 18 B/P (MAP) 149/81 Pulse Ox 97 O2 Delivery Room Air Blood Pressure Mean: 103 Departure Impression Impression: Primary Impression: Vertigo Disposition: 01 HOME, SELF-CARE Condition: Stable Departure-Patient Inst. Decision time for Depature: 17:00 Referrals: [facility] (PCP/Family) Primary Care Physician Patient Instructions: Vertigo (a Type of Dizziness) (DC) Add. Discharge Instructions: 1. Return to ER for any concerns 2. Follow-up with your regular doctor later this week 3. Change position very slowly All discharge instructions reviewed with patient and/or family. Voiced understanding. SABINE LAGOS APRN January 26, 2017 15:29
[2017-01-26] MEDS ORDERED: MECLIZINE 25 MG (ANTIVERT) TAB PO ONE (15:30)
[2017-01-26 15:42] LABS: BASOPHILS % (AUTO) 0 % (0-10); EOSINOPHILS # (AUTO) 0.2 10^3/uL (0.0-0.3); EOSINOPHILS % (AUTO) 2 % (0-10); LYMPHOCYTES # (AUTO) 2.2 X 10^3 (1.0-4.0); LYMPHOCYTES % (AUTO) 21 % (12-44); MEAN CORPUSCULAR HEMOGLOBIN 29 PG (25-34); MEAN CORPUSCULAR HGB CONC 33 G/DL (32-36); MEAN CORPUSCULAR VOLUME 87 FL (80-99); MEAN PLATELET VOLUME 10.4 FL (7.4-10.4); MONOCYTES # (AUTO) 0.9 X 10^3 (0.0-1.0); MONOCYTES % (AUTO) 9 % (0-12); NEUTROPHILS # (AUTO) 7.2 X 10^3 (1.8-7.8); NEUTROPHILS % (AUTO) 68 % (42-75); PLATELET COUNT 246 10^3/uL (130-400); RED BLOOD COUNT 4.58 10^6/uL (4.35-5.85); RED CELL DISTRIBUTION WIDTH 14.1 % (10.0-14.5); WHITE BLOOD COUNT 10.6 10^3/uL (4.3-11.0)
[2017-01-26 15:48] LABS: BILIRUBIN,URINE NEGATIVE (NEGATIVE); KETONES,URINE NEGATIVE (NEGATIVE); LEUKOCYTE ESTERASE ,URINE NEGATIVE (NEGATIVE); NITRITE,URINE NEGATIVE (NEGATIVE); PH,URINE 7 (5-9); PROTEIN,URINE 1+ (NEGATIVE); UROBILINOGEN,URINE NORMAL (NORMAL)
[2017-01-26 15:57] LABS: SQUAMOUS EPITHELIAL CELL,UR 0-2 /HPF
[2017-01-26 16:06] LABS: ALANINE AMINOTRANSFERASE 45 U/L (0-55); ALBUMIN 3.9 G/DL (3.2-4.5); ANION GAP 7 MMOL/L (5-14); ASPARTATE AMINO TRANSFERASE 26 U/L (5-34); BILIRUBIN,TOTAL 0.4 MG/DL (0.1-1.0); BLOOD UREA NITROGEN 13 MG/DL (7-18); BUN/CREATININE RATIO 14; CARBON DIOXIDE 23 MMOL/L (21-32); CHLORIDE 108 MMOL/L (98-107); GFR ESTIMATED > 60; GLUCOSE 302 MG/DL (70-105); POTASSIUM 4.7 MMOL/L (3.6-5.0); SODIUM 138 MMOL/L (135-145)
[2017-01-26] MEDS ORDERED: NS IV 500 ML 500 ML IV SCH (16:30)
[2017-01-26 16:58] LABS: THYROID STIMULATING HORMONE 1.18 UIU/ML (0.35-4.94); TROPONIN I < 0.30 NG/ML (<0.30)
[2017-01-26 17:07] VITALS: BP 149/81
== END 2017-01-26 17:06 | disposition home or self-care (01) ==
LOC: EDUNIT# 14:56 → ER 14:59
DX: R42 Dizziness and giddiness (principal)
CPT/HCPCS: 36415; 80053; 81000; 84443; 84484; 85025; 93005; 96360

== ENCOUNTER → 2017-03-02 | Outpatient (CLI) | payer MEDICARE ==
--- NOTE | 2017-03-02 13:58 | Diagnostic Imaging Report ---
PROCEDURE: MRI left upper extremity without contrast. TECHNIQUE: Multiplanar, multisequence non contrast-enhanced MRI of the left upper extremity was accomplished. INDICATION: Left shoulder pain. FINDINGS: There is no os acromiale or Hill-Sachs deformity. The acromioclavicular joint demonstrates advanced osteoarthritis with osteophytes most prominent superiorly. There are small inferior osteophytes. There is a full-thickness tear with retraction distance from the insertion site ranging from 1.8 to 3.6 cm in the supraspinatus and infraspinatus tendons. No significant remaining intact fibers are seen. Subscapularis tendon appears thickened compatible with tendinosis with no definitive tear. The humeral head is subluxed superiorly and there is a small glenohumeral joint effusion. There is a small amount of fluid within the subacromial subdeltoid bursa. The long head of biceps tendon is thickened with increased signal. There is probably a longitudinal split tear in this tendon along the bicipital groove. The proximal aspect of this tendon is not well seen. There is increased signal along the segments of the labrum probably related to degeneration with no definitive tear. There is a minimal atrophy of the supraspinatus and infraspinatus muscles. IMPRESSION: 1. Retracted full-thickness tear of the supraspinatus and infraspinatus tendons. 2. Acromioclavicular osteoarthritis with small inferior osteophytes. 3. Suggestion of a longitudinal split tear in the long head of biceps tendon within the bicipital groove. Dictated by: Dictated on workstation # [id number]
== END ==
LOC: RAD 10:26
PROVIDERS: ATTEND Family Medicine
DX: M25.512 Pain in left shoulder (principal)
CPT/HCPCS: 73221

== ENCOUNTER 2017-04-07 05:39 | Outpatient (CLI) | payer MEDICARE ==
[~2017-04-07] VITALS: Ht 152.4 cm; Wt 104.3 kg
== END 2017-04-07 14:28 ==
LOC: PREOP 05:39
PROVIDERS: ATTEND Surgery
DX: Z01.818 Encounter for other preprocedural examination (principal); R13.10 Dysphagia, unspecified

== ENCOUNTER 2017-04-11 10:15 | Day surgery (SDC) | payer MEDICARE ==
[~2017-04-11] VITALS: Ht 152.4 cm; Wt 104.3 kg
[~2017-04-11 10:15] MED LIST changes: +AZIT250T12 PO; -AZIT250T5 PO
[2017-04-11] MEDS ORDERED: LACTATED RINGERS 1,000 ML IV STA (10:24)
[2017-04-11] MEDS ORDERED: HURRICAINE EXT TUBE (BENZOCAINE) XX PRN (10:30)
[2017-04-11 10:43] VITALS: BP 145/80
[2017-04-11] MEDS ORDERED: proPOfol 200 MG/20 ML (DIPRIVAN) VIAL IV ONE (10:47)
[2017-04-11] MEDS ORDERED: MIDAZOLAM 2 MG/2 ML (VERSED) VIAL ONE (10:48)
[2017-04-11] MEDS ORDERED: HURRICAINE EXT TUBE (BENZOCAINE) ONE (11:02)
[2017-04-11] MEDS ORDERED: OMEP20CA12 PO (11:06)
[2017-04-11] MEDS ORDERED: GLIP10TA13 PO (11:06)
[2017-04-11] MEDS ORDERED: PANT40TA2 PO (11:17)
[2017-04-11] MEDS ORDERED: SUCR1TAB36 PO (11:17)
--- NOTE | 2017-04-11 11:17 | Progress Note-Post Operative ---
Post-Operative Progess Note Surgeon (s)/Beauty Artist (s) Surgeon CRISTINE RAYMOND DO Beauty Artist: na Pre-Operative Diagnosis dysphagia Post-Operative Diagnosis slight gastritis, small hiatal hernia Procedure & Operative Findings Date of Procedure 04/11/17 Procedure Performed/Findings egd c biopsy antrum Anesthesia Type per log data technician Estimated Blood Loss Estimated blood loss (mL): none Specimens/Packing Specimens Removed antrum CRISTINE RAYMOND DO Apr 11, 2017 11:17 am
--- NOTE | 2017-04-11 11:22 | Discharge Inst-Simple/Standard ---
Discharge Inst-Standard Discharge Medications New, Converted or Re-Newed RX: Transmitted to Pharmacy Patient Instructions/Follow Up Plan of Care/Instructions/FU: Follow up with Dr. Nam in 3 weeks. Take medication as directed/ Activity as Tolerated: Yes Discharge Diet: No Restrictions NAN SCHWAB APRN Apr 11, 2017 11:22
[2017-04-11 11:45] VITALS: BP 142/77
[2017-04-11 12:15] VITALS: BP 145/81
--- NOTE | 2017-04-11 12:52 | OPERATIVE REPORT ---
PROCEDURE PHYSICIAN: CRISTINE RAYMOND DATE OF PROCEDURE: 04/11/2017 PREOPERATIVE DIAGNOSIS: Dysphagia. POSTOPERATIVE DIAGNOSES: 1. Slight gastritis. 2. Small hiatal hernia. PROCEDURE: EGD with biopsy. SURGEON: Cyril. ANESTHESIA: Per HEDGE FUND TRADER. ESTIMATED BLOOD LOSS: None. COMPLICATIONS: None. INDICATIONS: The patient is a 61-year-old female with some dysphagia. She understands the risks and benefits of the procedure and wishes to proceed with the procedure. Consent was signed on the chart. PROCEDURE: The patient was taken to the endoscopy suite, placed in the left lateral recumbent position. A timeout was performed. The scope was inserted into the mouth, down the esophagus, stomach and into the duodenum. There were no polyps, masses, ulcerations within the duodenum. The scope was slowly retracted back into the stomach where slight erythematous changes consistent with some slight gastritis. There were no polyps, masses or ulcerations. Biopsy of the antrum was obtained. The scope was retroflexed noting a small hiatal hernia. There were also some small tiny benign appearing polyps in the stomach. The scope was returned to its normal position and slowly withdrawn back to the distal esophagus, which had normal appearance. There were no polyps, masses, ulcerations, and no erythematous changes. The scope was continued to be slowly retracted until completely removed noting no other pathology. RECOMMENDATIONS: The patient will follow-up in the office in approximately 2 to 3 weeks to discuss pathology results and see how her symptoms are doing. The patient is being switched from omeprazole to Protonix 40 mg daily. We will also put her on Carafate 1 gram 4 times a day and see how she is doing at that time. Job ID: [id number] Dictated Date: 04/11/2017 11:20:27 [employer] Date: 04/11/2017 12:43:08 / brannon HERNANDEZ
== END 2017-04-11 12:20 | disposition home or self-care (01) ==
LOC: ENDO 10:15
PROVIDERS: ATTEND Surgery
DX: K29.70 Gastritis, unspecified, without bleeding (principal); K44.9 Diaphragmatic hernia without obstruction or gangrene; I10 Essential (primary) hypertension; E11.9 Type 2 diabetes mellitus without complications; F31.9 Bipolar disorder, unspecified; Z79.899 Other long term (current) drug therapy
CPT/HCPCS: 88305

== ENCOUNTER 2017-05-31 08:43 | Outpatient (RCR) | payer OTHER ==
[~2017-05-31 08:43] MED LIST changes: -AZIT250T12 PO; +AZIT250T5 PO; +GLIP10TA13 PO; +PANT40TA2 PO; +SUCR1TAB36 PO
== END 2017-06-24 | disposition home or self-care (01) ==
PROVIDERS: ATTEND Orthopaedic Surgery Sports Medicine
DX: M75.102 Unspecified rotator cuff tear or rupture of left shoulder, not specified as traumatic (principal)

== ENCOUNTER → 2017-06-19 | Outpatient (CLI) | payer OTHER ==
--- NOTE | 2017-06-19 09:55 | Diagnostic Imaging Report ---
INDICATION: Bilateral diagnostic mammogram. CAD is utilized. The current study was also evaluated with a Computer Aided Detection (CAD) system. COMPARISON: 10/05/15. Pain along the inferior posterior aspect of the left breast. FINDINGS: The breasts are composed of scattered fibroglandular densities. There are scattered benign-appearing calcifications seen. There is no mass, architectural distortion or suspicious cluster of calcification seen. The bilateral calcifications seen have benign pattern. IMPRESSION: No mammographic evidence of malignancy. Ultrasound evaluation of the area of pain is pending. BI-RADS 0. ACR BI-RADS Category 0: Incomplete. (Needs additional imaging evaluation). Result letter will be mailed to the patient. Note: At least 10% of breast cancer is not imaged by mammography. Dictated by: Dictated on workstation # [id number]
--- NOTE | 2017-06-19 10:18 | Diagnostic Imaging Report ---
EXAMINATION: Left breast ultrasound. INDICATION: Lump along the inferior aspect of the left breast. FINDINGS: The area of lump was scanned with no underlying abnormality seen. IMPRESSION: Negative study. Clinical followup of the palpable area is recommended. ACR BI-RADS Category 1: Negative. Dictated by: Dictated on workstation # [id number]
== END ==
LOC: RAD 09:20
PROVIDERS: ATTEND Nurse Practitioner
DX: N63 Unspecified lump in breast (principal)
CPT/HCPCS: 76642; 77066

== ENCOUNTER → 2018-01-01 | Outpatient (CLI) | payer OTHER ==
[~2018-01-01] MED LIST changes: +AZIT250T12 PO; -AZIT250T5 PO
--- NOTE | 2018-01-02 12:13 | Diagnostic Imaging Report ---
INDICATION: Routine screening. Comparison is made with prior exam from 06/19/2017 and 10/05/2015. The current study was also evaluated with a Computer Aided Detection (CAD) system. Scattered fibronodular densities are identified bilaterally. Numerous benign-appearing calcifications are identified bilaterally. No dominant mass or malignant appearing microcalcifications are seen. The axillae are unremarkable. Impression: BI-RADS category 2 No mammographic features suspicious for malignancy are identified. ACR BI-RADS Category 2: Benign findings. Result letter will be mailed to the patient. Note: At least 10% of breast cancer is not imaged by mammography. Dictated by: Dictated on workstation # [id number]
== END ==
LOC: RAD 15:03
PROVIDERS: ATTEND Nurse Practitioner
DX: Z12.31 Encounter for screening mammogram for malignant neoplasm of breast (principal)
CPT/HCPCS: 77067

== ENCOUNTER → 2018-01-08 | Outpatient (CLI) | payer OTHER ==
[~2018-01-08] MED LIST changes: +TEMA15CA6 PO
--- NOTE | 2018-01-08 13:17 | Diagnostic Imaging Report ---
PROCEDURE: MRI left upper extremity without contrast. TECHNIQUE: Multiplanar, multisequence MR imaging of the left shoulder was performed without contrast. COMPARISON: Left shoulder MRI of 03/02/2017. INDICATION: Left shoulder pain. FINDINGS: Rotator cuff: Chronic complete tears of the supraspinatus and infraspinatus with the torn fibers retracted to the level of the glenohumeral joint. Moderate atrophy of both the muscle bellies is present. Subscapularis is intact with mild tendinopathy. Teres minor is normal. Glenoid labrum: By non-arthrogram imaging, the glenoid labrum appears intact. No para-labral cyst. Long head of biceps: Tendinopathy of intracapsular segment of long head of the biceps with potential partial-thickness tearing. Bones and cartilage: Superior migration of the humeral head secondary to chronic superior cuff tear. No associated full-thickness chondral loss in the glenohumeral joint. Mild hypertrophic degenerative changes of the acromioclavicular joint. Soft tissues: No glenohumeral joint effusion. No MRI findings to suggest adhesive capsulitis. Fluid in the subacromial and subdeltoid space is compatible with full-thickness cuff tear. IMPRESSION: 1. Compared to MRI of 03/02/2017, unchanged chronic complete tears of the supraspinatus and infraspinatus with the torn fibers retracted to the glenohumeral level. Moderate atrophy of the muscle bellies is present. 2. Partial-thickness tear of the intracapsular segment of the long head of the biceps is unchanged. 3. Mild to moderate hypertrophic osteoarthritis of the glenohumeral joint. Dictated by: Dictated on workstation # [id number]
--- NOTE | 2018-01-08 13:36 | Diagnostic Imaging Report ---
PROCEDURE: MRI right joint upper extremity without contrast. TECHNIQUE: Multiplanar, multisequence MR imaging of the right shoulder was performed without contrast. COMPARISON: None available. INDICATION: Right shoulder pain with decreased range of motion. FINDINGS: Rotator cuff: Complete tears of the supraspinatus and infraspinatus with the torn fibers retracted to the level of the glenohumeral joint. Severe fatty atrophy of the supraspinatus and infraspinatus is present. Subscapularis has tendinopathy without superimposed tearing. Teres minor is normal. Glenoid labrum: Truncated appearance of the margins of the glenoid labrum likely due to degenerative tearing. Long head of biceps: The intracapsular segment long of the biceps is not visualized and may be chronically torn. Bones and cartilage: Degenerative subcortical cysts are present in the greater tuberosity of the humeral head. Superior subluxation of the humeral head is compatible with chronic superior cuff tear. No foci of full-thickness chondromalacia in the glenohumeral joint. Moderate hypertrophic degenerative changes of the acromioclavicular joint. Soft tissues: No glenohumeral joint effusion. No MRI findings to suggest adhesive capsulitis. No fluid or inflammatory like signal within the subacromial/subdeltoid space to indicate bursitis. IMPRESSION: 1. Chronic massive rotator cuff tear includes complete and retracted tears of the supraspinatus and infraspinatus, with associated severe fatty atrophy of the muscle bellies. 2. Complete tear of the long head of the biceps. 3. Moderate osteoarthritis of the acromioclavicular joint. Dictated by: Dictated on workstation # [id number]
== END ==
LOC: RAD 09:05
DX: S46.112A Strain of muscle, fascia and tendon of long head of biceps, left arm, initial encounter (principal); S46.111A Strain of muscle, fascia and tendon of long head of biceps, right arm, initial encounter; M75.122 Complete rotator cuff tear or rupture of left shoulder, not specified as traumatic; M75.121 Complete rotator cuff tear or rupture of right shoulder, not specified as traumatic; M62.512 Muscle wasting and atrophy, not elsewhere classified, left shoulder; M19.012 Primary osteoarthritis, left shoulder; M19.011 Primary osteoarthritis, right shoulder
CPT/HCPCS: 73221

== ENCOUNTER 2018-01-15 12:54 | Outpatient (RCR) | payer OTHER ==
[~2018-01-15 12:54] MED LIST changes: -TEMA15CA6 PO
[2018-01-16] MEDS ORDERED: TEMA15CA6 PO (18:42)
== END 2018-01-25 09:03 | disposition home or self-care (01) ==
PROVIDERS: ATTEND Nurse Practitioner Adult Health
DX: M25.511 Pain in right shoulder (principal); M25.512 Pain in left shoulder

== ENCOUNTER 2018-04-16 13:22 | Outpatient (RCR) | payer MEDICARE ==
[~2018-04-16 13:22] MED LIST changes: +TEMA15CA6 PO
== END 2018-04-16 15:23 | disposition home or self-care (01) ==
DX: M25.511 Pain in right shoulder (principal); Z98.890 Other specified postprocedural states; I10 Essential (primary) hypertension; E11.9 Type 2 diabetes mellitus without complications; F31.9 Bipolar disorder, unspecified; K21.9 Gastro-esophageal reflux disease without esophagitis

== ENCOUNTER 2018-05-03 12:30 | Outpatient (CLI) | payer MEDICARE ==
[~2018-05-03] VITALS: Ht 152.4 cm; Wt 104.3 kg
[2018-05-03] MEDS ORDERED: LITH300C PO ×2 (12:33)
[2018-05-03] MEDS ORDERED: ATOR10TA66 PO (12:33)
[2018-05-03] MEDS ORDERED: AMLO10TA2 PO (12:33)
[2018-05-03] MEDS ORDERED: LANS30TA9 PO (12:33)
[2018-05-03] MEDS ORDERED: VNL75T PO (12:33)
[2018-05-03] MEDS ORDERED: TRAZ-190 PO (12:33)
== END 2018-05-03 12:34 | disposition home or self-care (01) ==
LOC: PREOP 12:30
PROVIDERS: ATTEND Surgery
DX: Z01.818 Encounter for other preprocedural examination (principal); R13.10 Dysphagia, unspecified

== ENCOUNTER 2018-05-08 12:17 | Day surgery (SDC) | payer MEDICARE ==
[~2018-05-08] VITALS: Ht 152.4 cm; Wt 104.3 kg
[~2018-05-08 12:17] MED LIST changes: +AMLO10TA2 PO; +ATOR10TA66 PO; +LANS30TA9 PO; +TRAZ-190 PO; +VNL75T PO
[2018-05-08] MEDS ORDERED: LACTATED RINGERS 1,000 ML IV ONE (12:24)
--- NOTE | 2018-05-08 12:29 | Progress Note-Pre Operative ---
Pre-Operative Progress Note H&P Reviewed The H&P was reviewed, patient examined and no changes noted. Date Seen by Provider: May 08, 2018 Time Seen by Provider: 12:29 Date H&P Reviewed: May 08, 2018 Time H&P Reviewed: 12:29 Pre-Operative Diagnosis: dysphagia, gerd CRISTINE RAYMOND DO May 08, 2018 12:29
[2018-05-08] MEDS ORDERED: LACTATED RINGERS 1,000 ML IV STA (12:50)
[2018-05-08 12:53] VITALS: BP 143/86
[2018-05-08] MEDS ORDERED: HURRICAINE EXT TUBE (BENZOCAINE) XX PRN (13:00)
[2018-05-08] MEDS ORDERED: NF-SOLIF5T PO (13:07)
[2018-05-08] MEDS ORDERED: MIDAZOLAM 2 MG/2 ML (VERSED) VIAL ONE (13:13)
[2018-05-08] MEDS ORDERED: PROPOFOL INJECTION 50 ML IV ONE (13:13)
[2018-05-08] MEDS ORDERED: HURRICAINE EXT TUBE (BENZOCAINE) ONE (13:25)
--- NOTE | 2018-05-08 13:57 | Progress Note-Post Operative ---
Post-Operative Progess Note Surgeon (s)/Land Acquisition Analyst (s) Surgeon CRISTINE RAYMOND DO Land Acquisition Analyst: na Pre-Operative Diagnosis dysphagia, gerd Post-Operative Diagnosis slight gastritis, small hiatal hernia Procedure & Operative Findings Date of Procedure 05/08/18 Procedure Performed/Findings egd c biopsies Anesthesia Type per sales floor associate Estimated Blood Loss Estimated blood loss (mL): none Specimens/Packing Specimens Removed antrum, body, ge CRISTINE RAYMOND DO May 08, 2018 13:57
[2018-05-08] MEDS ORDERED: PANT40TA2 PO (14:00)
--- NOTE | 2018-05-08 14:01 | Discharge Inst-Simple/Standard ---
Discharge Inst-Standard Discharge Medications New, Converted or Re-Newed RX: Transmitted to Pharmacy Patient Instructions/Follow Up Plan of Care/Instructions/FU: 3 weeks Cyril Activity as Tolerated: Yes Discharge Diet: Regular Diet CRISTINE RAYMOND DO May 08, 2018 14:01
[2018-05-08 14:10] VITALS: BP 159/80
[2018-05-08 14:40] VITALS: BP 166/99
[2018-05-08 14:50] VITALS: BP 166/99
--- NOTE | 2018-05-08 23:11 | OPERATIVE REPORT ---
DATE OF SERVICE: 05/08/2018 PREOPERATIVE DIAGNOSES: Dysphagia and gastroesophageal reflux disease. POSTOPERATIVE DIAGNOSES: Slight gastritis, small hiatal hernia. PROCEDURE: EGD with biopsies. SURGEON: Cristine Nam DO ANESTHESIA: Per HAND POLISHER. ESTIMATED BLOOD LOSS: None. COMPLICATIONS: None. INDICATIONS: The patient is a 62-year-old female who has been having some dysphagia and reflux. She understands risks and benefits of having EGD performed. She understands risks and benefits and wished to proceed. Consent was signed on the chart. DESCRIPTION OF PROCEDURE: The patient was taken to the endoscopy suite, placed in left lateral recumbent position. Timeout was performed. Scope was inserted in mouth, down the esophagus, stomach and into the duodenum without difficulty. There were no polyps, mass or ulceration of the duodenum. Scope was then slowly retracted back into the stomach where it was further insufflated. Some slight erythematous changes present. There are some small benign appearing polyps present. Biopsy of the antrum and of the body were obtained. Scope was retroflexed noting a small hiatal hernia. Scope was then returned to its normal position, slowly withdrawn to the distal esophagus. Some slight erythematous changes. Biopsy of GE junction was obtained. Scope was then slowly retracted back to completely remove. The patient tolerated the procedure well without any complications. She was taken to recovery room in stable condition. RECOMMENDATIONS: The patient will be started on Protonix 40 mg daily. We will stop the Prevacid and see how she is doing in three weeks. If she has any problems prior to that, she should be reevaluated at that time. Job ID: [id number] DocumentID: [id number] Dictated Date: 05/08/2018 14:03:24 Bathhouse Attendant Date: 05/08/2018 23:10:39 Dictated By: CRISTINE NAM DO
== END 2018-05-08 14:50 | disposition home or self-care (01) ==
LOC: ENDO 12:17
PROVIDERS: ATTEND Surgery
DX: K21.9 Gastro-esophageal reflux disease without esophagitis (principal); K44.9 Diaphragmatic hernia without obstruction or gangrene; K29.70 Gastritis, unspecified, without bleeding; K31.7 Polyp of stomach and duodenum; I10 Essential (primary) hypertension; E11.42 Type 2 diabetes mellitus with diabetic polyneuropathy; E66.01 Morbid (severe) obesity due to excess calories; Z68.41 Body mass index [BMI] 40.0-44.9, adult; Z79.84 Long term (current) use of oral hypoglycemic drugs
CPT/HCPCS: 82962

== ENCOUNTER → 2018-07-13 | Outpatient (CLI) | payer MEDICARE ==
[~2018-07-13] MED LIST changes: -AMLO10TA2 PO; +AMLO10TA6 PO; -BENZ-13 PO; +BENZ100C18 PO; +NF-SOLIF5T PO
[2018-07-13 08:59] LABS: BASOPHILS % (AUTO) 0 % (0-10); EOSINOPHILS # (AUTO) 0.3 10^3/uL (0.0-0.3); EOSINOPHILS % (AUTO) 3 % (0-10); HEMATOCRIT 38 % (35-52); HEMOGLOBIN 13.1 G/DL (11.5-16.0); LYMPHOCYTES # (AUTO) 2.7 X 10^3 (1.0-4.0); LYMPHOCYTES % (AUTO) 23 % (12-44); MEAN CORPUSCULAR HEMOGLOBIN 30 PG (25-34); MEAN CORPUSCULAR HGB CONC 35 G/DL (32-36); MEAN CORPUSCULAR VOLUME 86 FL (80-99); MEAN PLATELET VOLUME 9.9 FL (7.4-10.4); MONOCYTES # (AUTO) 1.2 X 10^3 (0.0-1.0); MONOCYTES % (AUTO) 10 % (0-12); NEUTROPHILS # (AUTO) 7.4 X 10^3 (1.8-7.8); NEUTROPHILS % (AUTO) 64 % (42-75); PLATELET COUNT 255 10^3/uL (130-400); RED BLOOD COUNT 4.36 10^6/uL (4.35-5.85); RED CELL DISTRIBUTION WIDTH 14.2 % (10.0-14.5); WHITE BLOOD COUNT 11.7 10^3/uL (4.3-11.0)
[2018-07-13 09:21] LABS: ALANINE AMINOTRANSFERASE 46 U/L (0-55); ALBUMIN 4.1 GM/DL (3.2-4.5); ALKALINE PHOSPHATASE 77 U/L (40-136); BILIRUBIN,TOTAL 0.3 MG/DL (0.1-1.0); BUN/CREATININE RATIO 17; CALCIUM 9.5 MG/DL (8.5-10.1); CARBON DIOXIDE 24 MMOL/L (21-32); CHLORIDE 103 MMOL/L (98-107); CREATININE SERUM 0.89 MG/DL (0.60-1.30); GFR ESTIMATED > 60; GLUCOSE 166 MG/DL (70-105); POTASSIUM 3.5 MMOL/L (3.6-5.0); SODIUM 137 MMOL/L (135-145); TOTAL PROTEIN 6.8 GM/DL (6.4-8.2)
--- NOTE | 2018-07-13 13:55 | Diagnostic Imaging Report ---
INDICATION: Balance disturbances. Peripheral neuropathy. History of diabetes. COMPARISON: 10/03/2016 TECHNIQUE: Routine noncontrast multiplanar, multisequence MRI of the head was obtained. FINDINGS: The ventricles and cortical sulci are slightly prominent, compatible with age related volume loss. There are focal and confluent areas of abnormal T2 bright signal in the periventricular and subcortical white matter, compatible with small vessel ischemic change. There is no acute infarction. There is no midline shift or mass effect identified. No intraparenchymal or extraaxial hemorrhage or fluid collection is identified. There is no other focal parenchymal abnormality seen. The midline craniocervical anatomy is unremarkable. The major expected intracranial flow voids are seen. There are no focal calvarial lesions. The visualized paranasal sinuses are unremarkable. The mastoid air cells are clear. IMPRESSION: 1. No acute intracranial abnormalities. No acute infarction, acute intra-axial hemorrhage, or focal intra-axial mass. 2. Chronic small vessel ischemic changes in the periventricular and subcortical white matter. Dictated by: Dictated on workstation # [id number]
== END ==
LOC: RAD 08:20
PROVIDERS: ATTEND Psychiatry & Neurology Neurology
DX: E11.40 Type 2 diabetes mellitus with diabetic neuropathy, unspecified (principal); G80.9 Cerebral palsy, unspecified; I67.82 Cerebral ischemia; R90.82 White matter disease, unspecified
CPT/HCPCS: 36415; 70551; 80053; 82607; 82746; 84155; 84165; 84207; 84425; 84439; 84443; 85025

== ENCOUNTER → 2018-08-08 | Outpatient (CLI) | payer MEDICARE ==
[2018-08-08 09:13] LABS: BASOPHILS % (AUTO) 0 % (0-10); EOSINOPHILS # (AUTO) 0.2 10^3/uL (0.0-0.3); EOSINOPHILS % (AUTO) 3 % (0-10); HEMATOCRIT 40 % (35-52); HEMOGLOBIN 13.4 G/DL (11.5-16.0); LYMPHOCYTES % (AUTO) 22 % (12-44); MEAN CORPUSCULAR HEMOGLOBIN 29 PG (25-34); MEAN CORPUSCULAR HGB CONC 34 G/DL (32-36); MEAN CORPUSCULAR VOLUME 87 FL (80-99); MONOCYTES # (AUTO) 0.9 X 10^3 (0.0-1.0); MONOCYTES % (AUTO) 10 % (0-12); NEUTROPHILS % (AUTO) 66 % (42-75); PLATELET COUNT 262 10^3/uL (130-400); RED BLOOD COUNT 4.59 10^6/uL (4.35-5.85); RED CELL DISTRIBUTION WIDTH 14.7 % (10.0-14.5); WHITE BLOOD COUNT 9.1 10^3/uL (4.3-11.0)
[2018-08-08 09:36] LABS: ALANINE AMINOTRANSFERASE 38 U/L (0-55); ALBUMIN 4.3 GM/DL (3.2-4.5); ALKALINE PHOSPHATASE 68 U/L (40-136); BILIRUBIN,TOTAL 0.3 MG/DL (0.1-1.0); BUN/CREATININE RATIO 22; CALCIUM 9.8 MG/DL (8.5-10.1); CARBON DIOXIDE 24 MMOL/L (21-32); CHLORIDE 109 MMOL/L (98-107); CHOLESTEROL 181 MG/DL (< 200); CREATININE SERUM 0.88 MG/DL (0.60-1.30); GFR ESTIMATED > 60; GLUCOSE 206 MG/DL (70-105); HDL CHOLESTEROL 53 MG/DL (40-60); MAGNESIUM 2.1 MG/DL (1.8-2.4); POTASSIUM 4.2 MMOL/L (3.6-5.0); SODIUM 141 MMOL/L (135-145); TOTAL PROTEIN 7.3 GM/DL (6.4-8.2); TRIGLYCERIDES 174 MG/DL (<150); VLDL CHOLESTEROL 35 MG/DL (5-40)
[2018-08-08 09:40] LABS: ERYTHROCYTE SEDIMENTATION RATE 38 MM/HR (0-30)
== END ==
LOC: LAB 08:50
PROVIDERS: ATTEND Internal Medicine Cardiovascular Disease
DX: I11.9 Hypertensive heart disease without heart failure (principal); I51.81 Takotsubo syndrome; R06.02 Shortness of breath; R07.89 Other chest pain; E11.9 Type 2 diabetes mellitus without complications
CPT/HCPCS: 36415; 80053; 80061; 83735; 83880; 84443; 85025; 85652

== ENCOUNTER → 2018-08-10 | Outpatient (CLI) | payer MEDICARE ==
[~2018-08-10] VITALS: Ht 152.4 cm; Wt 107.5 kg
[~2018-08-10] MED LIST changes: +CATHETER FLUSH 10 ML SYR IV PRN; +REGADENOSON 0.4 MG/5 ML SYR (LEXISCAN) IV ONE
[2018-08-10 08:18] VITALS: BP 124/66
--- NOTE | 2018-08-13 11:49 | STRESS TEST ---
DATE OF SERVICE: 08/10/2018 RESTING AND POST REGADENOSON TECHNETIUM-99M TETROFOSMIN SPECT CT IMAGING ORDERING PHYSICIAN: Dr. Alamo. PRIMARY PHYSICIAN: Dr. Ragland. CLINICAL DIAGNOSES: Shortness of breath, chest discomfort. Baseline images were carried out after injection of 10.74 mCi of technetium-99m Tetrofosmin. This was followed by 0.4 mg regadenoson and 29.5 mCi of technetium-99m Tetrofosmin for stress imaging. The electrocardiogram showed sinus rhythm at baseline. There was nonspecific T-wave abnormality. This did not change significantly with the regadenoson infusion. Review of images at rest and following stress does not indicate any specific perfusion defects consistent with significant myocardial ischemia or infarction. Gated images show normal global left ventricular systolic function with normal regional wall motion. Left ventricular ejection fraction is calculated to be 68%. Left ventricular end diastolic volume is 52 mL. TID is absent (1.02). CONCLUSIONS: 1. No evidence of any significant myocardial ischemia or infarction on this study. 2. Normal regional wall motion. 3. Normal global left ventricular systolic function with a calculated ejection fraction 68%. Job ID: [id number] DocumentID: [id number] Dictated Date: 08/13/2018 09:22:54 Global Process Owner Date: 08/13/2018 11:48:20 Dictated By: JANI ALAMO MD, MA, FACP, FACC,
== END ==
LOC: CARD 07:23
PROVIDERS: ATTEND Internal Medicine Cardiovascular Disease
DX: I51.81 Takotsubo syndrome (principal); R06.02 Shortness of breath; R07.89 Other chest pain; E11.9 Type 2 diabetes mellitus without complications
CPT/HCPCS: 78452; 93017

== ENCOUNTER → 2018-09-05 | Outpatient (CLI) | payer MEDICARE ==
[~2018-09-05] MED LIST changes: -CATHETER FLUSH 10 ML SYR IV PRN; -REGADENOSON 0.4 MG/5 ML SYR (LEXISCAN) IV ONE
== END ==
LOC: CARD 13:44
PROVIDERS: ATTEND Internal Medicine Cardiovascular Disease
DX: I51.81 Takotsubo syndrome (principal); R06.02 Shortness of breath; R07.89 Other chest pain; E11.9 Type 2 diabetes mellitus without complications; I10 Essential (primary) hypertension; I08.1 Rheumatic disorders of both mitral and tricuspid valves
CPT/HCPCS: 93306

== ENCOUNTER 2019-05-13 21:02 | Emergency (ER) | payer MEDICARE ==
[~2019-05-13] VITALS: Ht 152.4 cm; Wt 105.2 kg
[~2019-05-13 21:02] MED LIST changes: -AMLO10TA6 PO; +AMLO10TA7 PO; +OMEP20CA13 PO
[2019-05-13] MEDS ORDERED: LIDOCAINE 1% INJ 20 ML 20 ML VIAL ONE (22:55)
--- NOTE | 2019-05-13 22:55 | ED Lower Extremity ---
General Chief Complaint: Lower Extremity Stated Complaint: PAIN IN L LEG Nursing Triage Note: TO ED FT2 WITH R/O W/C. STATES LEFT KNEE PAIN AFTER GETTING UP FROM CHAIR. STATES SHE "HAS NO CARTILAGE IN THAT KNEE" AND HX OF CHRONIC PAIN. DID NOT TAKE ANYTHING FOR PAIN BC "THE PAIN WAS TAKING MY BREATH AWAY". Nursing Sepsis Screen: No Definite Risk Source: patient Exam Limitations: no limitations History of Present Illness Date Seen by Provider: May 13, 2019 Time Seen by Provider: 22:43 Initial Comments Patient presents to ER by private conveyance with chief complaint that about a 2 hours ago she was at a friend's house sitting in a chair when she stood up to leave her left knee started having some pain especially medially. She has both knees with primary osteoarthritis and has to occasionally go get injections of steroids by her orthopedic surgeon. Her plan is to have the knees replaced next year. she's never had surgery on her knees. She denies any numbness tingling weakness falls or trauma, car wrecks or other injury to the knees. Her last s teroid injection was about 2-3 months ago. She is not on any immunomodulators or blood thinner. Allergies and Home Medications Allergies Coded Allergies: lisinopril (Unverified Allergy, Unknown, 01/16/18) niacin (Verified Allergy, Unknown, hives/rash, 09/16/14) Home Medications Amlodipine Besylate 10 Mg Tablet, 10 MG PO DAILY, (Reported) Atorvastatin Calcium 10 Mg Tablet, 10 MG PO HS, (Reported) Glipizide 10 Mg Tablet, 10 MG PO DAILY, (Reported) [place] Carbonate 300 Mg Capsule, 300 MG PO DAILY, (Reported) [place] Carbonate 300 Mg Capsule, 900 MG PO HS, (Reported) take 3 (300mg) tabs Pantoprazole Sodium 40 Mg Tablet.dr, 40 MG PO DAILY Prescribed by: CRISTINE RAYMOND on 05/08/18 1400 Solifenacin Succinate 5 Mg Tablet, 5 MG PO DAILY, (Reported) Trazodone HCl 100 Mg Tablet, 400 MG PO HS, (Reported) take 4 (100mg) tabs Venlafaxine HCl 75 Mg Tab, 225 MG PO DAILY, (Reported) take 3 (75mg) tabs Patient Home Medication List Home Medication List Reviewed: Yes Review of Systems Constitutional: No chills, No malaise EENTM: No hearing loss, No ear pain Respiratory: No cough, No phlegm, No short of breath Cardiovascular: No chest pain, No palpitations Past Vvtnjoa-Tngxcc-Ufxjnn Hx Patient Social History Alcohol Use: Denies Use Number of Drinks Today: Alcohol Beverage of Choice: Wine Recreational Drug Use: No Smoking Status: Never a Smoker 2nd Hand Smoke Exposure: No Recent Foreign Travel: No Contact w/Someone Who Travel: No Recent Infectious Disease Expo: No Recent Hopitalizations: No Physical Abuse: No Sexual Abuse: No Mistreated: No Fear: No Immunizations Up To Date Tetanus Booster (TDap): Unknown PED Vaccines UTD: No Date of Pneumonia Vaccine: February 04, 2014 Date of Influenza Vaccine: Jun 25, 2016 Seasonal Allergies Seasonal Allergies: No Past Medical History Orthopedic, Tonsillectomy Respiratory: No Currently Using CPAP: No Currently Using BIPAP: No Cardiac: Yes Hypertension Neurological: Yes Cerebral Palsy, Neuropathy Reproductive Disorders: No Female Reproductive Disorders: Menstrual Problems Sexually Transmitted Disease: No HIV/AIDS: No Genitourinary: Yes (BLADDER SPASMS) Kidney Stones Gastrointestinal: Yes (difficulty swallowing) Gastroesophageal Reflux Musculoskeletal: Yes (CEREBRAL PALSY) Endocrine: Yes (OBESITY) Diabetes, Non-Insulin dep HEENT: No Loss of Vision: Denies Hearing Impairment: Denies Cancer: No Psychosocial: Yes Anxiety, Bipolar, Depression Integumentary: No Blood Disorders: No Adverse Reaction/Blood Tranf: No Family Medical History Completed stroke G8 SISTER, Onset:40's - 50 Lung cancer 19 FATHER, Onset:60 years & older Respiratory disorder 19 MOTHER, Onset:50's - 60 (copd) Heart Disease, Cancer, COPD, Stroke Physical Exam Vital Signs Vital Signs - First Documented 05/13/19 22:15 Temp 97.4 Pulse 67 Resp 20 B/P (MAP) 154/81 (105) Capillary Refill : Less Than 3 Seconds Height, Weight, BMI Height: 5'0.00" Weight: 232lbs. 0oz. 105.772984cf; 46.3 BMI Method:Stated General Appearance: WD/WN, no apparent distress Cardiovascular: normal peripheral pulses, regular rate, rhythm Respiratory: no respiratory distress, no accessory muscle use Hips: bilateral hip non-tender, bilateral hip normal inspection, bilateral hip normal range of motion, bilateral hip no evidence of injury Legs: bilateral leg non-tender, bilateral leg normal inspection, bilateral leg normal range of motion, bilateral leg no evidence of injury Knees: bilateral knee non-tender, bilateral knee normal inspection, bilateral knee normal range of motion, bilateral knee no evidence of injury Ankles: bilateral ankle non-tender, bilateral ankle normal inspection, bilateral ankle normal range of motion, bilateral ankle no evidence of injury Procedures/Interventions Progress Risks, benefits and alternatives were explained to a medial approach knee injection intra-articularly and the patient accepted the risks. We then position her in the proper position clean the site with Betadine sticks and allowed to dry for 5 minutes. We then used alcohol wipe over the site. Palpated our landmarks using sterile gloves and sterile technique we sherlyn up 3 cc of Marcaine 0.5% without epinephrine, 3 cc of lidocaine 1% without epinephrine and 1 cc or 40 mg of Depo-Medrol. Using a 27-gauge 1-1/2 inch needle we sterilely entered the left knee using medial approach. Patient tolerated procedure well. We aspirated a small amount of straw-colored fluid and injected the solution. Patient guards it well and the site was dressed with a Band-Aid without any bleeding. Progress/Results/Core Measures Results/Orders My Orders Orders - JESSICA LAYNE Bupivacaine 0.5% Injection (Sensorcaine (05/13/19 23:00) Lidocaine 2% Injection 20 Ml (Xylocaine (05/13/19 23:00) Methylprednisolone Acetate Inj (Depo-Med (05/13/19 23:00) Lidocaine 1% Inj 20 Ml (Xylocaine 1% Inj (05/13/19 22:55) Lidocaine 1% Inj 20 Ml (Xylocaine 1% Inj (05/13/19 23:15) Medications Given in ED Current Medications Medications Dose Ordered Sig/Deborah Route Start Time Stop Time Status Last Admin Dose Admin Bupivacaine HCl 30 ml ONCE ONCE INJ 05/13/19 23:00 05/13/19 23:01 DC 05/13/19 23:07 30 ML Lidocaine HCl 20 ml ONCE ONCE INJ 05/13/19 23:15 05/13/19 23:16 05/13/19 23:07 20 ML Methylprednisolone Acetate 40 mg ONCE ONCE IA 05/13/19 23:00 05/13/19 23:01 DC 05/13/19 23:07 40 MG Vital Signs/I&O 05/13/19 22:15 Temp 97.4 Pulse 67 Resp 20 B/P (MAP) 154/81 (105) Blood Pressure Mean: 105 Progress Progress Note : Time: 22:53 Progress Note We discussed the risks, benefits and alternatives to a knee injection and she agrees to do this. She does not have any allergies to any of the components. We'll use sterile technique. An x-ray will not be very useful since is no history of trauma. She does have follow-up appointment with her orthopedic surgeon. Departure Impression Primary Impression: Acute pain of left knee Additional Impressions: Chronic pain of left knee Osteoarthritis of knees, bilateral Qualified Codes: M17.0 - Bilateral primary osteoarthritis of knee Disposition: HOME, SELF-CARE Condition: Stable Departure-Patient Inst. Decision time for Depature: 23:13 Referrals: [facility] [place] (PCP/Family) Primary Care Physician Patient Instructions: Knee Pain (DC) Add. Discharge Instructions: Expect a steroid taken in about 12-24 hours. Continue to use your routine pain medicines. Use heating pads, topical creams such as Aspercreme, icy hot etc. for your knee. Follow-up with primary care or your orthopedic surgeon as necessary for management of your knee pain. All discharge instructions reviewed with patient and/or family. Voiced understanding. JESSICA LAYNE May 13, 2019 22:55
[2019-05-13] MEDS ORDERED: BUPIVACAINE 0.5% 30 ML (SENSORCAINE) VIAL INJ ONE (23:00)
[2019-05-13] MEDS ORDERED: LIDOCAINE 2% 20 ML (XYLOCAINE) VIAL INJ ONE (23:00)
[2019-05-13] MEDS ORDERED: methylPREDNISolone 40 MG/ML (DEPO MEDROL) VIAL IA ONE (23:00)
[2019-05-13] MEDS ORDERED: LIDOCAINE 1% INJ 20 ML 20 ML VIAL INJ ONE (23:15)
[2019-05-13 23:17] VITALS: BP 139/80
== END 2019-05-13 23:18 | disposition home or self-care (01) ==
LOC: EDUNIT# 21:02 → ER 21:03
DX: M17.0 Bilateral primary osteoarthritis of knee (principal); E11.40 Type 2 diabetes mellitus with diabetic neuropathy, unspecified; K21.9 Gastro-esophageal reflux disease without esophagitis; F31.9 Bipolar disorder, unspecified; F41.9 Anxiety disorder, unspecified; E66.9 Obesity, unspecified; Z68.42 Body mass index [BMI] 45.0-49.9, adult; Z80.1 Family history of malignant neoplasm of trachea, bronchus and lung; Z88.8 Allergy status to other drugs, medicaments and biological substances; Z79.84 Long term (current) use of oral hypoglycemic drugs; Z90.89 Acquired absence of other organs; Z87.442 Personal history of urinary calculi
CPT/HCPCS: 99284

== ENCOUNTER 2020-03-28 07:42 | Emergency (ER) | payer MEDICARE ==
[~2020-03-28] VITALS: Ht 152.4 cm; Wt 98.9 kg
[~2020-03-28 07:42] MED LIST changes: -OMEP20CA13 PO; +OMEP20CA18 PO; -TRAZ-190 PO; +TRAZ-227 PO; +TRM50T PO
[2020-03-28] MEDS ORDERED: QUET100T33 PO (08:08)
--- NOTE | 2020-03-28 08:09 | ED General ---
General Chief Complaint: Allergic Reaction Stated Complaint: ALLERGIC REACTION Nursing Triage Note: TO ED WITH WALKER REPORTS HER DR TOOK HER OFF TRAZONE BECAUSE SHE WAS NOT AND STARTD HER ON QUETIAPINE. TOOK HER FIRST DOSE LAST NIGHT AND HAS FELT LIKE HER BODY WAS SHAKING . NO SOB OR RASH NOTED. Nursing Sepsis Screen: No Definite Risk Source of Information: Patient Exam Limitations: No Limitations History of Present Illness Date Seen by Provider: Mar 28, 2020 Time Seen by Provider: 07:52 Initial Comments Patient presents to ER by private conveyance with chief complaint that she thinks she's having allergic reaction to her new medication. She's been on trazodone for 5 years for sleep and she just didn't feel is helping anymore so [facility] to Seroquel 50 mg at night. She took her first dose last night and started feeling restless and feeling like her body was jerky and did not develop any hives, or anaphylactic reaction. She has has taken Seroquel in the distant past. She's never had a dystonic reaction befo re. She says she was not able to sleep so she just went around the house cleaning and has a history of bipolar disorder. Allergies and Home Medications Allergies Coded Allergies: lisinopril (Unverified Allergy, Unknown, 01/16/18) niacin (Verified Allergy, Unknown, hives/rash, 09/16/14) Home Medications Amlodipine Besylate 10 Mg Tablet, 10 MG PO DAILY, (Reported) Atorvastatin Calcium 10 Mg Tablet, 10 MG PO HS, (Reported) Glipizide 10 Mg Tablet, 10 MG PO DAILY, (Reported) [place] Carbonate 300 Mg Capsule, 300 MG PO DAILY, (Reported) [place] Carbonate 300 Mg Capsule, 900 MG PO HS, (Reported) take 3 (300mg) tabs Pantoprazole Sodium 40 Mg Tablet.dr, 40 MG PO DAILY Prescribed by: CRISTINE RAYMOND on 05/08/18 1400 Solifenacin Succinate 5 Mg Tablet, 5 MG PO DAILY, (Reported) Trazodone HCl 100 Mg Tablet, 400 MG PO HS, (Reported) take 4 (100mg) tabs Venlafaxine HCl 75 Mg Tab, 225 MG PO DAILY, (Reported) take 3 (75mg) tabs Patient Home Medication List Home Medication List Reviewed: Yes Review of Systems Review of Systems Constitutional: No chills, No diaphoresis EENTM: No ear discharge, No ear pain Respiratory: No cough, No short of breath Cardiovascular: No chest pain, No edema Gastrointestinal: No abdominal pain, No constipation, No nausea Genitourinary: No discharge, No dysuria All Other Systems Reviewed Negative Unless Noted: Yes Past Tapetwn-Otruds-Gzfvuo Hx Patient Social History Alcohol Use: Occasionally Uses Alcohol Beverage of Choice: Wine Recreational Drug Use: No Smoking Status: Never a Smoker 2nd Hand Smoke Exposure: No Recent Foreign Travel: No Contact w/Someone Who Travel: No Recent Infectious Disease Expo: No Recent Hopitalizations: No Immunizations Up To Date Tetanus Booster (TDap): Unknown PED Vaccines UTD: No Date of Pneumonia Vaccine: February 04, 2014 Date of Influenza Vaccine: Jun 25, 2016 Seasonal Allergies Seasonal Allergies: No Past Medical History Orthopedic, Tonsillectomy Respiratory: No Currently Using CPAP: No Currently Using BIPAP: No Cardiac: Yes Hypertension Neurological: Yes Cerebral Palsy, Neuropathy Reproductive Disorders: No Female Reproductive Disorders: Menstrual Problems Sexually Transmitted Disease: No HIV/AIDS: No Genitourinary: Yes (BLADDER SPASMS) Kidney Stones Gastrointestinal: Yes (difficulty swallowing) Gastroesophageal Reflux Musculoskeletal: Yes (CEREBRAL PALSY) Endocrine: Yes (OBESITY) Diabetes, Non-Insulin dep HEENT: No Loss of Vision: Denies Hearing Impairment: Denies Cancer: No Psychosocial: Yes Anxiety, Bipolar, Depression Integumentary: No Blood Disorders: No Adverse Reaction/Blood Tranf: No Family Medical History Completed stroke G8 SISTER, Onset:40's - 50 Lung cancer 19 FATHER, Onset:60 years & older Respiratory disorder 19 MOTHER, Onset:50's - 60 (copd) Heart Disease, Cancer, COPD, Stroke Physical Exam Vital Signs Capillary Refill : Less Than 3 Seconds Height, Weight, BMI Height: 5'0.00" Weight: 232lbs. 0oz. [id number]; 42.00 BMI Method:Stated General Appearance: No Apparent Distress, WD/WN Eyes: Bilateral Eye Normal Inspection, Bilateral Eye PERRL, Bilateral Eye EOMI HEENT: PERRL/EOMI, Pharynx Normal, Moist Mucous Membranes Respiratory: No Accessory Muscle Use, No Respiratory Distress Cardiovascular: Regular Rate, Rhythm, No Edema Extremity: Normal Capillary Refill, Normal Inspection Neurologic/Psychiatric: Alert, Oriented x3, No Motor/Sensory Deficits, Normal Mood/Affect Skin: Normal Color, Warm/Dry Progress/Results/Core Measures Suspected Sepsis Recent Fever Within 48 Hours: No Infection Criteria Present: None New/Unexplained Altered Menta: No Sepsis Screen: No Definite Risk SIRS Temperature: Pulse: 87 Respiratory Rate: 18 Blood Pressure 152 /82 Mean: 105 Results/Orders Vital Signs/I&O Capillary Refill : Less Than 3 Seconds Blood Pressure Mean: 105 Progress Note : Time: 08:09 Progress Note No evidence of a allergic reaction. Sounds like she had a dystonic reaction but has passed. We've recommended Benadryl for comes back. We've also recommended she discontinue Seroquel and resume the trazodone until she sees her psychiatrist next week. Departure Impression Primary Impression: Acute dystonic reaction due to drugs Disposition: 01 HOME, SELF-CARE Condition: Stable Departure-Patient Inst. Decision time for Depature: 08:04 Referrals: [facility] (PCP/Family) Primary Care Physician Patient Instructions: Dystonia Add. Discharge Instructions: I suspect you had a dystonic reaction related to the Seroquel/quetiapine. Please stop using it today. You may resume using your trazodone to help you get sleep at night and Monday call your psychiatrist to try different medication. If you have similar symptoms again you may take one or 2 tablets, 25-50 mg, Benadryl every 6 hours as necessary to make the symptoms go away. If you have new or worsening symptoms then please return to the ER. All discharge instructions reviewed with patient and/or family. Voiced understanding. JESSICA LAYNE Mar 28, 2020 08:09
[2020-03-28 08:11] VITALS: BP 152/82
--- OUTSIDE RECORDS SUMMARY | 2020-03-28 08:18 | XMS REPORT | Encounter Summary ---
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 This section includes the names of all active insurance providers for the anamika breen Insurance Provider Type of Coverage Plan Name Start of Policy Co verage End of Policy Coverage Group Number Member ID Insurance Provider's Telephone N umber Policy Garcia's Name Patient's Relationship to Policy Garcia MEDICARE (WNR) MEDICARE (M) PART A Aug 25, 2011 PART A [id number] GADBERRY,CHARLANNE PATIENT MEDICARE (WNR) MEDICARE (M) PART B Aug 25, 2011 PART B [id number] GADBERRY,CHARLANNE PATIENT MEDICARE (WNR) MEDICARE (M) PART A Aug 25, 2011 PART A [id number] GADBERRY,CHARLANNE PATIENT MEDICARE (WNR) MEDICARE (M) PART B Aug 25, 2011 PART B [id number] GADBERRY,CHARLANNE PATIENT MEDICARE (WNR) MEDICARE (M) PART A Aug 25, 2011 PART A [id number] [phone] SANDRA MORELOS PATIENT MEDICARE (WNR) MEDICARE (M) PART B Aug 25, 2011 PART B [id number] [phone] SANDRA MORELOS PATIENT MEDICARE PART D (WNR) MEDICARE (M) PART D Sep 25, 2012 PART D [id number] SANDRA WHITMAN PATIENT Selected Encounter This section includes the information on record at [place] for the Encounter. Date/Time Encounter Type Encounter Description Reason Provider Source Jan 06, 2020 10:51 AM Outpatient Encounter ADMIN PAT ACTIVTIES (MAS NONCT) DEEPJACOBRENÉ ChongSaritha Nichols [facility] IHE Encounter Template Text not used by [place] Assessments - Encounter Diagnoses No Data Provided for This Section Plan of Treatment: Future Appointments (+ 6 months) and Future Tests (+/- 45 day s) The Plan of Treatment section includes future care activities for the patient fr om all [place] treatment facilities. This section includes future appointments and fu ture orders which are active, pending or scheduled. Future Appointments This section includes appointments that were scheduled t o occur 6 months from the date of the Encounter, up to a maximum of 20 appointme nts. The data comes from all [facility]. Appointment Date/Time Appointment Type Appointment Facili ty Name Jan 15, 2020 10:30 AM AMBULATORY - MEDICINE [facility] Jan 16, 2020 10:00 AM AMBULATORY - PSYCHIATRY [facility] Jan 23, 2020 02:00 PM AMBULATORY - MEDICINE [facility] February 12, 2020 02:00 PM AMBULATORY - PSYCHIATRY [facility] Mar 24, 2020 08:30 AM AMBULATORY - PSYCHIATRY [facility] Apr 16, 2020 10:00 AM AMBULATORY - PSYCHIATRY [facility] May 12, 2020 10:00 AM AMBULATORY PSYCHIATRY [facility] Active, Pending, and Scheduled Orders This section includes a listing of several types of activ e, pending, and scheduled orders, including clinic medications orders, diagnosti c test orders, procedure orders and consult orders; where the start date of th e order is 45 days before the date of the Encounter or 45 days after the date o f the Encounter. The data comes from all [facility]. Test Date/Time Test Type Test Details Facility Name Nov 27, 2019 12:00 AM Laboratory - Chemistry Order HEMOGLOBI N A1C LAVENDER TOP BLOOD SP [facility] Nov 27, 2019 12:00 AM Laboratory - Chemistry Order URINALYSI S URIN,RAND URINE SP [facility] Nov 27, 2019 12:00 AM Laboratory - Chemistry Order MICROALBU MIN ([place]ATH[place]) RANDOM URINE URIN,RAND URINE SP [facility] Nov 27, 2019 12:00 AM Laboratory - Chemistry Order OCCULT BL OOD FIT X1 SCREEN STOOL FECES SP [facility] Nov 27, 2019 12:00 AM Laboratory - Chemistry Order CBC & DIF F 5 ML LAVENDER TOP BLOOD SP [facility] Nov 27, 2019 12:00 AM Laboratory - Chemistry Order COMPREHEN SIVE METABOLIC PANEL GREEN TOP TUBE PLASMA SP [facility] Nov 27, 2019 12:00 AM Laboratory - Chemistry Order LIPID PROFILE(HDL,TRIG,CHOL,LDL) GREEN TOP TUBE PLASMA SP [facility] Nov 27, 2019 12:00 AM Laboratory - Chemistry Order TSH SST GEL S DAVE SKB SP [facility] Surgical Procedures: All associated to the encounter No Data Provided for This Section Lab Results: +/- 30 days of the encounter No Data Provided for This Section Vital Signs: All taken on the encounter date No Data Provided for This Section Immunizations: All administered on the encounter date No Data Provided for This Section Social History: Smoking Status (Most current) and Tobacco Use (All prior to enco unter date) This section includes the most current, and the historical, smoking and tobacco- related health factors from the [place] facility where the Encounter took place. Current Smoking Status This section includes the most current smoking, or tobacco -related health factor, from the [place] facility where the Encounter took place. Date/Time Current Smoking Status Comment Facility Nov 21, 2018 11:32 AM CURRENT NON-SMOKER [facility] Tobacco Use History This section includes a history of the smoking, or tobacco -related health factors, that were collected on or before the date of the Encoun ter. The data comes from the [place] facility where the Encounter took place. Date/Time Smoking Status/Tobacco Use Comment [facility] Nov 21, 2018 11:32 AM LIFETIME NON-TOBACCO USER [facility] Feb 27, 2017 09:38 AM CURRENT NON-SMOKER [facility] Feb 27, 2017 09:38 AM LIFETIME NON-TOBACCO USER [facility] Sep 08, 2015 09:10 AM CURRENT NON-SMOKER [facility] Sep 08, 2015 09:10 AM LIFETIME NON-TOBACCO USER [facility] Jan 12, 2015 09:39 AM CURRENT NON-SMOKER [facility] Jan 12, 2015 09:39 AM LIFETIME NON-TOBACCO USER [facility] Jan 10, 2014 01:20 PM CURRENT NON-SMOKER [facility] Jan 10, 2014 01:20 PM LIFETIME NON-TOBACCO USER [facility] Oct 30, 2012 08:31 AM CURRENT NON-SMOKER [facility] Oct 30, 2012 08:31 AM LIFETIME NON-TOBACCO USER [facility] Jun 01, 2011 11:19 AM CURRENT NON-SMOKER [facility] Jun 01, 2011 11:19 AM LIFETIME NON-TOBACCO USER [facility] Mar 21, 2011 01:50 PM CURRENT NON-SMOKER [facility] Mar 21, 2011 01:50 PM LIFETIME NON-TOBACCO USER [facility] Mar 21, 2011 01:50 PM NON-TOBACCO USER [facility] Aug 03, 2010 01:21 PM CURRENT NON-SMOKER [facility] Aug 03, 2010 01:21 PM LIFETIME NON-TOBACCO USER [facility] Jan 14, 2010 09:03 AM CURRENT NON-SMOKER [facility] Jan 14, 2010 09:03 AM LIFETIME NON-TOBACCO USER [facility] Mar 23, 2009 09:25 AM CURRENT NON-SMOKER [facility] Mar 23, 2009 09:25 AM LIFETIME NON-TOBACCO USER [facility] Oct 23, 2008 09:10 AM CURRENT NON-SMOKER [facility] Oct 23, 2008 09:10 AM LIFETIME NON-TOBACCO USER [facility] Sep 27, 2007 10:27 AM CURRENT NON-SMOKER [facility] Sep 27, 2007 10:27 AM LIFETIME NON-TOBACCO USER [facility] Advance Directives: All historical and current Section Date Range: From patient's date of to the date document was create d. This section includes ALL of a patient's completed or amen ded VA Advance and Rescinded Directives. The entries below indicate that a direc tive exists for the patient, but an actual copy is not included with this docume nt. The data comes from all [place] facilities. Date Advance Directives Provider Source Sep 15, 2009 ADVANCE DIRECTIVE DISCUSSION JADE VARMA [facility] Jul 21, 2006 ADVANCE DIRECTIVE [facility] Jul 12, 2006 ADVANCE DIRECTIVE DISCUSSION SAV PAULSON [facility] Allergies and Adverse Reactions (ADRs): All historical and current Section Date Range: From patient's date of to the date document was create d. This section includes Allergies and Adverse Reactions (ADR s) on record with VA for the patient. The data comes from a [facility] treatment facilities. It does not list Allergies/ADRs that were removed or entered in error. Some allergies/ADRs may be reported in t he Immunization section. Allergen Event Date Event Type Reaction(s) Severity Source ENALAPRIL Aug 22, 2017 Propensity to adverse reactions to drug (diso rder) [facility] ENALAPRIL May 04, 2007 Propensity to adverse reactions to drug ( disorder) Cough [facility] LEVAQUIN Aug 22, 2017 Propensity to adverse reactions to drug (diso rder) [facility] Oct 08, 2015 Propensity to adverse reactions to drug (disorder) Eruption [facility] LISINOPRIL Aug 22, 2017 Propensity to adverse reactions to drug (diso rder) [facility] LISINOPRIL Jan 16, 2007 Propensity to adverse reactions to drug (disorder) Cough [facility] NIACIN Aug 22, 2017 Propensity to adverse reactions to drug (diso rder) [facility] NIACIN Oct 23, 2008 Propensity to adverse reactions to drug ( disorder) Eruption [facility] 15 Medications: VA dispensed (-15 months) and Non-VA Documented (Obtained Outside V A) Section Date Range: 1) prescriptions processed by a VA pharmacy in the last 15 m [facility], and 2) all medications recorded in the [place] medical record as "non-VA medic ations". Pharmacy terms refer to [place] pharmacy's work on prescriptions. VA patient s are advised to take their medications as instructed by their health care team. The data comes from all [place] treatment facilities. Glossary of Pharmacy Terms:Active = A prescription that can be filled at the local [place] pharmacy.Active: On Hold = An active prescription that will not be filled until pharmacy resolves the issue.Active: Susp = An active prescription that is not scheduled to be filled yet.Clinic Order = A medication received during a visit to a [place] clinic or emergency department (currently not available).Discontinued = A prescription stopped by a VA provider. It is no longer available to be filled. = A prescription which is too old to fill. This does not refer to the expiration date of the medication in the container. Non-VA = A medication that came from someplace other than a VA pharmacy. This may be a prescription from either the VA or other providers that was filled outside the VA. Or, it may be an over the counter (OTC), herbal, dietary supplement or sample medication.Pending = This prescription order has been sent to the Pharmacy for review and is not ready yet. Medication Name and Strength Pharmacy Term Instructions Quantity Or dered Prescription Expires Prescription Number Last Dispense Date Ordering Provider Facility ACCU-CHEK MACI PLUS (GLUCOSE) TEST STRIP Active USE 1 STRIP FOR TESTING TWO TIMES PER WEEK FOR BLOOD GLUCOSE TESTING 50 Jun 06, 2020 [id number] February 21, 2020 SIMON NEELY AMLODIPINE BESYLATE 10MG TAB Active TAKE ONE TABLET BY MOUTH EVERY MORNING 90 January 23, 2021 [id number] Jan 23, 2020 SIMON NEELY AMLODIPINE BESYLATE 10MG TAB Discontinued TAKE ONE TA BLET BY MOUTH EVERY MORNING 90 Nov 27, 2019 [id number] Oct 21, 2019 SIMON NEELY ATORVASTATIN CA 20MG TAB Active TAKE ONE-HALF T ABLET BY MOUTH AT BEDTIME FOR CHOLESTEROL - REPORT ANY UNEXPLAINED MUSCLE PAIN/WEAKNESS TO YOUR PROVIDER TAKE IN PLACE OF CRESTOR, [place] DOESNT SUPPLY CRESTOR, FOR CHOLESTEROL - REPORT ANY UNEXPLAINED MUSCLE PAIN/WEAKNESS TO YOUR PROVIDER TAKE IN PLACE OF CRESTOR, [place] DOESNT SUPPLY CRESTOR, 45 January 23, 2021 [id number] Jan 23, 2020 HARRISON NEELY ATORVASTATIN CA 20MG TAB Discontinued TAKE ONE-HALF T ABLET BY MOUTH AT BEDTIME FOR CHOLESTEROL - REPORT ANY UNEXPLAINED MUSCLE PAIN/WEAKNESS TO YOUR PROVIDER TAKE IN PLACE OF CRESTOR, [place] DOESNT SUPPLY CRESTOR, FOR CHOLESTEROL - REPORT ANY UNEXPLAINED MUSCLE PAIN/WEAKNESS TO YOUR PROVIDER TAKE IN PLACE OF CRESTOR, [place] DOESNT SUPPLY CRESTOR, 45 Dec 07, 2019 [id number] Mar 01, 2019 HARRISON NEELY BRIEF,SUPER PLUS ABSORB WITH BARRIERS UNDERWEAR X-LARGE ATTE NDS Active USE DIRECTED DIRECTED FOR INCONTINENCE 56 Nov 04, 2020 [id number] Nov 09, 2019 SIMON NEELY BRIEF,SUPER PLUS ABSORB WITH BARRIERS UNDERWEAR X-LARGE ATTE NDS Discontinued USE DIRECTED DIRECTED FOR INCONTINENCE 56 Apr 01, 2020 [id number] Aug 06, 2019 SIMON NEELY GLIPIZIDE 5MG TAB Active TAKE ONE TABLET BY M OUTH EVERY DAY BEFORE BREAKFAST FOR DIABETES. TAKE 30 MINUTES BEFORE EATING. 90 Apr 22, 2020 [id number] February 12, 2020 SIMON NEELY GLIPIZIDE 5MG TAB Discontinued TAKE ONE TABLET BY M OUTH EVERY DAY BEFORE BREAKFAST FOR DIABETES. TAKE 30 MINUTES BEFORE EATING. 90 Feb 242019 [id number] February 12, 2020 SIMON NEELY GLIPIZIDE 5MG TAB Discontinued TAKE ONE TABLET BY M OUTH EVERY DAY BEFORE BREAKFAST FOR DIABETES. TAKE 30 MINUTES BEFORE EATING. 90 January [id number] Nov 24, 2019 SIMON NEELY GLIPIZIDE 5MG TAB Discontinued TAKE ONE TABLET BY M OUTH EVERY DAY BEFORE BREAKFAST FOR DIABETES. TAKE 30 MINUTES BEFORE EATING. 90 Nov [id number] Sep 05, 2019 SIMON NEELY LANCET,SOFTCLIX Active USE LANCET BIW FOR TESTING BL OOD GLUCOSE DIRECTED 100 Jun 06, 2020 [id number] Jun 07, 2019 SIMON NEELY C LITHIUM CARBONATE 300MG CAP Active TAKE 1 CAPSU LE BY MOUTH EVERY MORNING AND TAKE 3 CAPSULES BY MOUTH AT BEDTIME FOR MOOD. MUST MAKE AN APPT OR WILL TAPER AND DISCONTINUE MEDICATIONS 120 February 12, 2021 [id number] Mar 04, 2020 [facility] LITHIUM CARBONATE 300MG CAP Discontinued TAKE 1 CAPSU LE BY MOUTH EVERY MORNING AND TAKE 3 CAPSULES BY MOUTH AT BEDTIME FOR MOOD. MUST MAKE AN APPT OR WILL TAPER AND DISCONTINUE MEDICATIONS 120 Aug 06, 2020 [id number] Dec 16, 2019 [facility] LITHIUM CARBONATE 300MG CAP Discontinued TAKE 1 CAPSU LE BY MOUTH EVERY MORNING AND TAKE 3 CAPSULES BY MOUTH AT BEDTIME FOR MOOD. MUST MAKE AN APPT OR WILL TAPER AND DISCONTINUE MEDICATIONS 120 Jun 10, 2020 [id number] Jul 19, 2019 [facility]LY [facility]IQ [facility] LITHIUM CARBONATE 300MG CAP Discontinued TAKE 1 CAPSU LE BY MOUTH EVERY MORNING AND TAKE 3 CAPSULES BY MOUTH AT BEDTIME FOR MOOD. MUST MAKE AN APPT OR WILL TAPER AND DISCONTINUE MEDICATIONS 120 Jul 03, 2019 [id number] Jun 03, 2019 [facility]LY [facility]IQ [facility] LITHIUM CARBONATE 300MG CAP Discontinued TAKE 1 CAPSU LE BY MOUTH EVERY MORNING AND TAKE 3 CAPSULES BY MOUTH AT BEDTIME FOR MOOD. MUST MAKE AN APPT OR WILL TAPER AND DISCONTINUE MEDICATIONS 120 Mar 23, 2019 [id number] February 21, 2019 [facility]LY [facility]ARIQ [facility] LITHIUM CARBONATE 300MG CAP Discontinued TAKE 1 CAPSU LE BY MOUTH EVERY MORNING AND TAKE 3 CAPSULES BY MOUTH AT BEDTIME FOR MOOD. 120 Dec 18, 2019 [id number] Jan 11, 2019 [facility]LY BANG [facility] LITHIUM CARBONATE 300MG TAB,SA Discontinued TAKE ONE TABLET BY MOUTH TWO TIMES A DAY FOR 2 DAYS THEN TAKE ONE TABLET BY MOUTH EVERY MORNING AND TAKE TWO TABLETS BY MOUTH AT BEDTIME FOR 2 DAYS THEN TAKE ONE TABLET BY MOUTH EVERY MORNING AND TAKE THREE TABLETS BY MOUTH AT BEDTIME FOR MOOD. SWALLOW WHOLE, DO NOT CRUSH, SPLIT, OR CHEW. 234 May 31, 2019 [id number] Apr 01, 2019 [facility] NO KNOWN NON-VA MEDS MISCELLANEOUS Non-VA Non-VA Documented by: MICHELLE BARTHOLOMEW Docume nted at: [facility] NO KNOWN NON-VA MEDS MISCELLANEOUS Non-VA Non-VA Documented by: GALILEA BENÍTEZ Docume nted at: [facility] OXYCODONE HCL 5MG TAB No n-VA TAKE ONE TABLET BY MOUTH EVERY 6 HOURS NEEDED Non-VA Docume nted by: SIMON NEELY Docume nted at: [facility] QUETIAPINE FUMARATE 100MG TAB Active TAKE ONE-HALF TABL ET BY MOUTH AT BEDTIME 15 Mar 25, 2021 [id number] Mar 24, 2020 [facility]ISE [facility]NH [facility] TRAMADOL HCL 50MG TAB No n-VA TAKE ONE TABLET BY MOUTH EVERY 6 HOURS NEEDED Non-VA Docume nted by: SIMON NEELY Docume nted at: [facility] TRAZODONE HCL 100MG TAB Discontinued TAKE FOUR TABLET S BY MOUTH AT BEDTIME FOR MOOD OR SLEEP. 120 February 12, 2021 [id number] Mar 01, 2020 ELOISE HUYNH [facility] TRAZODONE HCL 100MG TAB Discontinued TAKE FOUR TABLET S BY MOUTH AT BEDTIME FOR MOOD OR SLEEP. 120 Aug 06, 2020 [id number] February 10, 2020 KANG ZAYAS [facility] TRAZODONE HCL 100MG TAB Discontinued TAKE FOUR TABLET S BY MOUTH AT BEDTIME FOR MOOD OR SLEEP. 120 Jun 03, 2020 [id number] Jul 29, 2019 KIMBERLY BANG [facility] TRAZODONE HCL 100MG TAB Discontinued TAKE FOUR TABLET S BY MOUTH AT BEDTIME FOR MOOD OR SLEEP. 120 February 05, 2020 [id number] May 06, 2019 [facility]LY [facility]ANG [facility] TRAZODONE HCL 100MG TAB Discontinued TAKE FOUR TABLET S BY MOUTH AT BEDTIME FOR MOOD OR SLEEP. 120 Sep 14, 2019 [id number] Jan 07, 2019 KIMBERLY BANG [facility] TROSPIUM CL 20MG TAB Active TAKE ONE TABLET BY MOUTH TWO TIMES A DAY FOR BLADDER. TAKE ON AN EMPTY STOMACH OR AT LEAST ONE HOUR BEFORE FOOD. PER DR. BUTLER 180 January 23, 2021 [id number] Mar 16, 2020 [facility]ON NEELY [facility] TROSPIUM CL 20MG TAB Discontinued TAKE ONE TABLET BY MOUTH TWO TIMES A DAY FOR BLADDER. TAKE ON AN EMPTY STOMACH OR AT LEAST ONE HOUR BEFORE FOOD. PER DR. BUTLER 180 Apr 01, 2020 [id number] Dec 17, 2019 SIMON NEELY [facility] VENLAFAXINE HCL 75MG 24HR CAP,SA Active TAKE 3 CAPSULES BY MOUTH ONCE A DAY FOR MOOD. TAKE WITH FOOD. 90 February 12, 2021 [id number] Mar 04, 2020 Arlette HUYNH [facility] VENLAFAXINE HCL 75MG 24HR CAP,SA Discontinued TAKE 3 CAPSULES BY MOUTH ONCE A DAY FOR MOOD. TAKE WITH FOOD. 90 Aug 06, 2020 [id number] Jan 05 0 KANG ZAYAS [facility] VENLAFAXINE HCL 75MG 24HR CAP,SA Discontinued TAKE 3 CAPSULES BY MOUTH ONCE A DAY FOR MOOD. TAKE WITH FOOD. 90 Aug 28, 2019 [id number] Aug 01 9 [facility]LY [facility]IQ [facility] VENLAFAXINE HCL 75MG 24HR CAP,SA Discontinued TAKE 3 CAPSULES BY MOUTH ONCE A DAY FOR MOOD. TAKE WITH FOOD. 90 February 05, 2020 [id number] Jul 01 9 KIMBERLY TARIQ [facility] Problems (Conditions): All historical and current Section Date Range: From patient's date of to the date document was create d. This section includes a list of Problems (Conditions) know n to [facility] for the patient. It includes both active and inacti ve problems (conditions). The data comes from all [place] treatment facilities. Problem Status Problem Code Date of Onset Date of Resolution Comm ent(s) Provider Source Abnormality of Gait (ICD-9-CM 781.2) Active 781.2 GALILEA BENÍTEZ [facility] Achilles bursitis or tendinitis (ICD-9-CM 726.71) Active 726.71 RILEY [facility]AN [facility] Acquired right hallux valgus Active [id number] RILEY [facility]VAN [facility] Ankle ulcer due to type 2 diabetes mellitus ([place] [address] [id number]) Active [id number] SIMON NEELY [facility] Bereavement (SNOMED CT 27851186) Active V62.89 SIMON NEELY [facility] Bilateral plantar fasciitis (SNOMED CT [id number]) Ac tive [id number] RILEY [facility] BIPOLAR AFFECTIVE NOS Active 296.7 DEMETRA UREÑA [facility] Bipolar disorder (SNOMED CT 88950252) Active [id number] KIMBERLY BANG [facility] Bunion Active 727.1 MONICA MADDOX [facility] Carpal Tunnel Syndrome * (ICD-9-CM 354.0) Active 354.0 Oct 16, 2002 Entered By: GALILEA BENÍTEZ Comment: rt GALILEA BENÍTEZ [facility] Cerebral Palsy NEC (ICD-9-CM 343.8) Active 343.8 SEPIDEH NELSON [facility] Depression * (ICD-9-CM 311./300.4) Active 311. SIMON NEELY [facility] Derangement of meniscus Active 717.5 J an 2001 Entered By: DEMETRA UREÑA Comment: left knee, arthroscopy 11/23 DEMETRA UREÑA [facility] Diabetes mellitus (SNOMED CT 84972560) Active [id number] SIMON NEELY [facility] Difficulty balancing Active [id number] [facility] Elevated Liver Function Tests (ICD-9-CM 794.8) Active 794.8 [facility] Enthesopathy of ankle and tarsus (ICD-9-CM 726.70/726.79) Active 72 6.70 BECCA JONES [facility] Flat foot Active 734. [facility] GERD * (ICD-9-CM 530.81) Active 530.81 SIMON NEELY [facility] Hip Pain (ICD-9-CM 719.45) Active 719.45 [facility]ON [facility] Hyperkeratosis Active 701.1 MONICA MADDOX [facility] Hyperlipidemia * (ICD-9-CM 272.4) Active 272.4 [facility] Hypertension * (ICD-9-CM 401.9) Active 401.9 GALILEA BENÍTEZ [facility] Hypertension * (ICD-9-CM 401.9) Active 401.9 SIMON NEELY [facility] Insomnia * (ICD-9-CM 780.52) Active 780.52 SIMON THOMAS [facility] Joint Pain Forearm Active 719.43 [facility]ONIDAS [facility] Lower Leg Injury NOS Active 959.7 SHARRI [facility] Morbid Obesity * (ICD-9-CM 278.01) Active 278.01 [facility] Obesity * (ICD-9-CM 278.00) Active 278.00 GALILEA WEST [facility] Onychomycosis (SNOMED CT 391898631) Active 110.1 SIMON NEELY DARION Cid [facility] Osteoarthosis Shoulder Active 715.91 [facility] Pain in joint involving shoulder region (ICD-9-CM 719.41) Active 71 9.41 SIMON NEELY DARION [facility] Routine Gynecological examination Active V72.31 SIMON NEELY [facility] Sciatica * (ICD-9-CM 724.3) Active 724.3 SIMON CAMP DARION Cid [facility] Unspecified chest pain * (ICD-9-CM 786.50) Active 786.50 MARK VIVAS [facility] Unsteady when walking Active [id number] HARRISON NEELY [facility] Urinary Incontinence * (ICD-9-CM 788.30) Active 788.30 JJ GAYTAN [facility] MUSCLE SPASM Inactive 728.85 May 29, 2007 Sep 02 Entered By: TONY BENÍTEZ Comment: shoulders TONY BENÍTEZ [facility] Radiology Reports: +/- 30 days of the encounter No Data Provided for This Section Pathology Reports: +/- 30 days of the encounter No Data Provided for This Section Encounter Notes: All associated encounter notes This section contains the clinical notes associated to the Encounter. Date/Time Encounter Note(s) Provider Source Jan 06, 2020 10:51 AM ADMINISTRATIVE NOTE: LOCAL TITLE: [place]-ADMINISTRATIVE NOTE (BP,O) STANDARD TITLE: ADMINISTRATIVE NOTE DATE OF NOTE: JAN 06, 2020@10:51 ENTRY DATE: JAN 06, 2020@10:51:46 AUTHOR: SIMI MENCHACA EXP COSIGNER: URGENCY: STATUS: COMPLETED PAP Smear Screening: PAP smear screening is not indicated. Comment: due to age /es/ SIMI MENCHACA STAFF NURSE Signed: 01/06/2020 10:52 Receipt Acknowledged By: * AWAITING SIGNATURE * SIMON NEELY [facility]
--- OUTSIDE RECORDS SUMMARY | 2020-03-28 08:18 | XMS REPORT | Continuity of Care Document ---
Author [facility] Address Unknown Phone Unavailable Care Team Providers Care Dental Assisting Instructor Name Role Phone [facility] Unavailable Unavailable Problems Combined list of all problems from all Department of Defense and [facility] facilities. It does not include entries that were removed or entered in error. 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 (SNOMED CT [id number]) Active Condition [facility] Bereavement (SNOMED CT 77836171) Active Condition [facility] Bilateral plantar fasciitis (SNOMED CT [id number]) Active Condition [facility] BIPOLAR AFFECTIVE NOS Active Condition [facility] Bipolar disorder (SNOMED CT 59016526) Active Condition [facility] Bunion Active Condition [facility] Carpal Tunnel Syndrome * (ICD-9-CM 354.0) Active Condition Oct 16, 2002 Entered By: GALILEA BENÍTEZ Comment: rt [facility] Cerebral Palsy NEC (ICD-9-CM 343.8) Active Condition [facility] Depression * (ICD-9-CM 311./300.4) Active Condition [facility] Derangement of meniscus Active Condition Oct 11, 2001 Entered By: DEMETRA UREÑA Comment: left knee, arthroscopy 11/23 [facility] Diabetes mellitus (SNOMED CT 55046124) Active Condition [facility] Difficulty balancing Active Condition [facility] Elevated Liver Function Tests (ICD-9-CM 794.8) Active Condition [facility] Enthesopathy of ankle and tarsus (ICD-9-CM 726.70/726. 79) Active Condition [facility] Flat foot Active Condition [facility] GERD * (ICD-9-CM 530.81) Active Condition [facility] Hip Pain (ICD-9-CM 719.45) Active Condition [facility] Hyperkeratosis Active Condition [facility] Hyperlipidemia * (ICD-9-CM 272.4) Active Condition [facility] Hypertension * (ICD-9-CM 401.9) Active Condition [facility] Hypertension * (ICD-9-CM 401.9) Active Condition [facility] Insomnia * (ICD-9-CM 780.52) Active Condition [facility] Joint Pain Forearm Active Condition [facility] Lower Leg Injury NOS Active Condition [facility] Morbid Obesity * (ICD-9-CM 278.01) Active Condition [facility] Obesity * (ICD-9-CM 278.00) Active Condition [facility] Onychomycosis (SNOMED CT 492031486) Active Condition [facility] Osteoarthosis Shoulder Active Condition [facility] Pain in joint involving shoulder region (ICD-9-CM 719. 41) Active Condition [facility] Routine Gynecological examination Active Condition [facility] Sciatica * (ICD-9-CM 724.3) Active Condition [facility] Unspecified chest pain * (ICD-9-CM 786.50) Active Condition [facility] Unsteady when walking Active Condition [facility] Urinary Incontinence * (ICD-9-CM 788.30) Active Condition [facility] MUSCLE SPASM Inactive Condition 05/29/2007 Sep 02, 2002 Entered By: TONY BENÍTEZ Comment: shoulders [facility] ICD-10-CM F31.32 Bipolar disorder, curre nt episode depressed, moderate with Provider Comments: Bipolar disorder ([facility] [id number]) active Diagnosis [facility] ICD-10-CM M25.569 Pain in unspecified kn ee with Provider Comments: Pain in unspecified Knee active Diagnosis [facility] ICD-10-CM Z71.89 Other specified alcohol and drug counselor ing with Provider Comments: Other specified counseling active Diagnosis DARION MARTINEZ [facility] ICD-10-CM Z13.5 Encounter for screening for eye and ear disorders with Provider Comments: Encounter for Screening for Eye and Ear Disorders active Diagnosis [facility] 15 ICD-10-CM E11.9 Type 2 diabetes mellitus without complications with Provider Comments: Type 2 Diabetes Mellitus without Complications active Diagnosis GALINDO [facility] ICD-10-CM E11.65 Type 2 diabetes mellitu s with hyperglycemia with Provider Comments: Diabetes mellitus ([facility] [id number]) active Diagnosis GALINDO [facility] Medications Combined list of all outpatient medications recorded within the last 15 months b y all Department of Defense and [facility] Affairs facilities, and also all [facility] t-reported medications. Medication Details Route Status Patient Instructions Prescription Expires Prescript ion Number Last Dispense Date Ordering Pr ovider Order Date Source ACCU-CHEK MACI PLUS (GLUCOSE) TEST STRIP USE 1 STRIP FOR TESTING TWO TIMES PER WEEK FOR BLOOD GLUCOSE TESTING ACTIVE 06/06/2020 [id number] 02/21/2020 SIMON NEELY 06/07/2019 JOSIE [facility] AMLODIPINE BESYLATE 10MG TAB T SHERRY ONE TABLET BY MOUTH EVERY MORNING ACTIVE 01/23/2021 [id number] 01/23/2020 SIMON NEELY 01/23/2020 JOSIE [facility] AMLODIPINE BESYLATE 10MG TAB T SHERRY ONE TABLET BY MOUTH EVERY MORNING DISCONTINUE 11/27/2019 [id number] 10/21/2019 SIMON NEELY 12/13/2018 JOSIE AMAYA ATORVASTATIN CA 20MG TAB TAKE ONE-HALF TABLET BY MOUTH AT BEDTIME FOR CHOLESTEROL - REPORT ANY UNEXPLAINED MUSCLE PAIN/WEAKNESS TO YOUR PROVIDER TAKE IN PLACE OF CREST[place], [place], FOR CHOLESTEROL - REPORT ANY UNEXPLAINED MUSCLE PAIN/WEAKNESS TO YOUR PROVIDER TAKE IN PLACE [place], [place], ACTIVE 09/2020 [id number] 01/23/2020 SIMON NEELY 01/23/2020 JOSIE [facility] ATORVASTATIN CA 20MG TAB TAKE ONE-HALF TABLET BY MOUTH AT BEDTIME FOR CHOLESTEROL - REPORT ANY UNEXPLAINED MUSCLE PAIN/WEAKNESS TO YOUR PROVIDER TAKE IN PLACE [place] CRE[place], [place], FOR CHOLESTEROL - REPORT ANY UNEXPLAINED MUSCLE PAIN/WEAKNESS TO YOUR PROVIDER TAKE IN PLACE [place] CRE[place], [place], DISCONTINUE 12/07/2019 [id number] 03/01/2019 SIMON NEELY 12/11/2018 [facility] BRIEF,SUPER PLUS ABSORB WITH BARRIERS UN DERWEAR X-LARGE ATTENDS USE DIRECTED DIRECTED FOR INCONTINENCE ACTIVE 11/04/2020 [id number] 11/09/2019 SIMON NEELY 11/09/2019 [facility] BRIEF,SUPER PLUS ABSORB WITH BARRIERS UN DERWEAR X-LARGE ATTENDS USE DIRECTED DIRECTED FOR INCONTINENCE DISCONTINUE 04/01/2020 [id number] 08/06/2019 SIMON NEELY 04/03/2019 [facility] GLIPIZIDE 5MG TAB TAKE ONE TAB LET BY MOUTH EVERY DAY BEFORE BREAKFAST FOR DIABETES. TAKE 30 MINUTES BEFORE EATING. ACTIVE 04/22/2020 [id number] 02/12/2020 SIMON NEELY 02/12/2020 [facility] GLIPIZIDE 5MG TAB TAKE ONE TAB LET BY MOUTH EVERY DAY BEFORE BREAKFAST FOR DIABETES. TAKE 30 MINUTES BEFORE EATING. DISCONTINUE 03/15/2020 [id number] 02/12/2020 SIMON NEELY Socrates 02/12/2020 [facility] GLIPIZIDE 5MG TAB TAKE ONE TAB LET BY MOUTH EVERY DAY BEFORE BREAKFAST FOR DIABETES. TAKE 30 MINUTES BEFORE EATING. DISCONTINUE 02/02/2020 [id number] 11/24/2019 FLORINDASIMON 11/24/2019 [facility] GLIPIZIDE 5MG TAB TAKE ONE TAB LET BY MOUTH EVERY DAY BEFORE BREAKFAST FOR DIABETES. TAKE 30 MINUTES BEFORE EATING. DISCONTINUE 11/27/2019 [id number] 09/05/2019 SIMON NEELY 11/28/2018 [facility] LANCET,SOFTCLIX USE LANCET BIW FOR TESTING BLOOD GLUCOSE DIRECTED ACTIVE 06/06/2020 [id number] 06/07/2019 FLORINDASIMON 06/07/2019 [facility] LITHIUM CARBONATE 300MG CAP TA KE 1 CAPSULE BY MOUTH EVERY MORNING AND TAKE 3 CAPSULES BY MOUTH AT BEDTIME FOR MOOD. MUST MAKE AN APPT OR WILL TAPER AND DISCONTINUE MEDICATIONS ACTIVE 02/12/2021 [id number] 03/04/2020 ELOISE HUYNH 02/13/2020 [facility] MARTINEZ [facility] LITHIUM CARBONATE 300MG CAP TA KE 1 CAPSULE BY MOUTH EVERY MORNING AND TAKE 3 CAPSULES BY MOUTH AT BEDTIME FOR MOOD. MUST MAKE AN APPT OR WILL TAPER AND DISCONTINUE MEDICATIONS DISCONTINUE 08/06/2020 [id number] 12/16/2019 KANG ZAYAS 08/12/2019 [facility] LITHIUM CARBONATE 300MG CAP TA KE 1 CAPSULE BY MOUTH EVERY MORNING AND TAKE 3 CAPSULES BY MOUTH AT BEDTIME FOR MOOD. MUST MAKE AN APPT OR WILL TAPER AND DISCONTINUE MEDICATIONS DISCONTINUE 06/10/2020 [id number] 07/19/2019 KIMBERLY BANG 06/23/2019 [facility] LITHIUM CARBONATE 300MG CAP TA KE 1 CAPSULE BY MOUTH EVERY MORNING AND TAKE 3 CAPSULES BY MOUTH AT BEDTIME FOR MOOD. MUST MAKE AN APPT OR WILL TAPER AND DISCONTINUE MEDICATIONS DISCONTINUE 07/03/2019 [id number] 06/03/2019 KIMBERLY BANG 06/03/2019 [facility] LITHIUM CARBONATE 300MG CAP TA KE 1 CAPSULE BY MOUTH EVERY MORNING AND TAKE 3 CAPSULES BY MOUTH AT BEDTIME FOR MOOD. MUST MAKE AN APPT OR WILL TAPER AND DISCONTINUE MEDICATIONS DISCONTINUE 03/23/2019 [id number] 02/21/2019 KIMBERLY BANG 02/21/2019 [facility] LITHIUM CARBONATE 300MG CAP TA KE 1 CAPSULE BY MOUTH EVERY MORNING AND TAKE 3 CAPSULES BY MOUTH AT BEDTIME FOR MOOD. DISCONTINUE 12/18/2019 [id number] 01/11/2019 KIMBERLY BANG 12/17/[address] [facility] LITHIUM CARBONATE 300MG TAB,SA TAKE ONE TABLET BY MOUTH TWO TIMES A DAY FOR 2 DAYS THEN TAKE ONE TABLET BY MOUTH EVERY MORNING AND TAKE TWO TABLETS BY MOUTH AT BEDTIME FOR 2 DAYS THEN TAKE ONE TABLET BY MOUTH EVERY MORNING AND TAKE THREE TABLETS BY MOUTH AT BEDTIME FOR MOOD. SWALLOW WHOLE, DO NOT CRUSH, SPLIT, OR CHEW. DISCONTINUED 05/31/2019 [id number] 04/01/2019 KIMBERLY BANG 04/01/2019 DARION Cid [facility] NO KNOWN NON-VA MEDS MISCELLANEOUS ACTIVE MICHELLE BARTHOLOMEW 05/04/2007 [facility] NO KNOWN NON-VA MEDS MISCELLANEOUS ACTIVE GALILEA BENÍTEZ 01/05/2007 [facility] OXYCODONE HCL 5MG TAB TAKE ONE TABLET BY MOUTH EVERY 6 HOURS NEEDED ACTIVE SIMON NEELY 01/23/2020 JOSIE [facility] QUETIAPINE FUMARATE 100MG TAB TAKE ONE-HALF TABLET BY MOUTH AT BEDTIME ACTIVE 03/25/2021 [id number] 03/24/2020 ELOISE HUYNH Evelyn 03/24/2020 [facility] TRAMADOL HCL 50MG TAB TAKE ONE TABLET BY MOUTH EVERY 6 HOURS NEEDED ACTIVE SIMON NEELY 01/23/2020 JOSIE [facility] TRAZODONE HCL 100MG TAB TAKE F OUR TABLETS BY MOUTH AT BEDTIME FOR MOOD OR SLEEP. DISCONTINUED 02/12/2021 [id number] 03/01/2020 LINOELOISE ARVIZUAnahi Rivas 03/01/2020 DARION Cid [facility] TRAZODONE HCL 100MG TAB TAKE F OUR TABLETS BY MOUTH AT BEDTIME FOR MOOD OR SLEEP. DISCONTINUE 08/06/2020 [id number] 02/10/2020 KANG ZAYAS 08/22/2019 DARION Cid [facility] TRAZODONE HCL 100MG TAB TAKE F OUR TABLETS BY MOUTH AT BEDTIME FOR MOOD OR SLEEP. DISCONTINUE 06/03/2020 [id number] 07/29/2019 KIMBERLY BANG 06/03/[address] [facility] TRAZODONE HCL 100MG TAB TAKE F OUR TABLETS BY MOUTH AT BEDTIME FOR MOOD OR SLEEP. DISCONTINUE 02/05/2020 [id number] 05/06/2019 KIMBERLY BANG 02/07/[address] [facility] TRAZODONE HCL 100MG TAB TAKE F OUR TABLETS BY MOUTH AT BEDTIME FOR MOOD OR SLEEP. DISCONTINUE 09/14/2019 [id number] 01/07/2019 KIMBERLY BANG 09/19/[address] [facility] TROSPIUM CL 20MG TAB TAKE ONE TABLET BY MOUTH TWO TIMES A DAY FOR BLADDER. TAKE ON AN EMPTY STOMACH OR AT LEAST ONE HOUR BEFORE FOOD. PER DR. BUTLER ACTIVE 01/23/2021 [id number] 03/16/2020 SIMON NEELY 03/16/2020 JOSIE [facility] TROSPIUM CL 20MG TAB TAKE ONE TABLET BY MOUTH TWO TIMES A DAY FOR BLADDER. TAKE ON AN EMPTY STOMACH OR AT LEAST ONE HOUR BEFORE FOOD. PER DR. BUTLER DISCONTINUE 04/01/2020 [id number] 12/17/2019 SIMON NEELY 04/01/2019 JOSIE [facility] VENLAFAXINE HCL 75MG 24HR CAP,SA TAKE 3 CAPSULES BY MOUTH ONCE A DAY FOR MOOD. TAKE WITH FOOD. ACTIVE 01/24 [id number] 03/04/2020 ELOISE HUYNH 02/13/2020 DARION MARTINEZ [facility] VENLAFAXINE HCL 75MG 24HR CAP,SA TAKE 3 CAPSULES BY MOUTH ONCE A DAY FOR MOOD. TAKE WITH FOOD. DISCONTINUE 08/06/2020 [id number] 01/06/2020 KANG ZAYAS 08/21/2019 DARION MARTINEZ [facility] VENLAFAXINE HCL 75MG 24HR CAP,SA TAKE 3 CAPSULES BY MOUTH ONCE A DAY FOR MOOD. TAKE WITH FOOD. DISCONTINUE 08/28/2019 [id number] 08/01/2019 KIMBERLY BANG 08/01/2019 DARION MARTINEZ [facility] VENLAFAXINE HCL 75MG 24HR CAP,SA TAKE 3 CAPSULES BY MOUTH ONCE A DAY FOR MOOD. TAKE WITH FOOD. DISCONTINUE 02/05/2020 [id number] 07/01/2019 KIMBERLY BANG 02/07/2019 DARION MARTINEZ [facility] Allergies, Adverse Reactions, Alerts Combined list of all allergies from all Department of Defense and Veterans Affairs facilities. It does not include entries that were removed or entered in error. Substance Category R eaction Severity Reaction type Status Date Reported Comments Source ENALAPRIL Propensity to adverse re actions to drug (disorder) Cough Propensity to adverse reactions to drug (disorder) active 05/04/2007 [facility] ENALAPRIL Propensity to adverse re actions to drug (disorder) Propensity to adverse reactions to drug (disorder) active 08/22/2017 [facility] LEVAQUIN Propensity to adverse delores ctions to drug (disorder) Eruption Propensity to adverse reactions to drug (disorder) active 10/08/2015 [facility] LEVAQUIN Propensity to adverse delores ctions to drug (disorder) Propensity to adverse reactions to drug (disorder) active 08/22/2017 [facility] LISINOPRIL Propensity to adverse r eactions to drug (disorder) Cough Propensity to adverse reactions to drug (disorder) active 01/16/2007 [facility] LISINOPRIL Propensity to adverse r eactions to drug (disorder) Propensity to adverse reactions to drug (disorder) active 08/22/2017 [facility] NIACIN Propensity to adverse react ions to drug (disorder) Eruption Propensity to adverse reactions to drug (disorder) active 10/23/2008 [facility] NIACIN Propensity to adverse react ions to drug (disorder) Propensity to adve rse reactions to drug (disorder) active 08/22/2017 [facility] Immunizations Combined list of: 1) all immunizations on record at all [facility] ies, and 2) all available immunizations on record at Department of Defense (Do D) facilities. Some immunizations on record at [facility] may not be included. Immunization Series Date Given Administered By Site Reaction Lot Number CVX Code Drug School Fundraising Director Status Comments Source INFLUENZA, UNSPECIFIED FORMULATION 06/25/2019 88 [facility], UNSPECIFIED FORMULATION 07/26/2018 88 [facility] INFLUENZA, INJECTABLE, QUADRIVALENT, PRESERVATIVE FREE 06/27/2017 150 completed [facility] INFLUENZA (HISTORICAL) 09/08/2015 88 completed [facility] INFLUENZA, SEASONAL, INJECTABLE, PRESERVATIVE FREE 09/08/2015 140 completed [facility] INFLUENZA (HISTORICAL) 07/22/2014 88 completed [place] Jose Roberto [facility] INFLUENZA, SEASONAL, INJECTABLE, PRESERVATIVE FREE 07/22/2014 140 completed [place] Jose Roberto [facility] PNEUMOCOCCAL POLYSACCHARIDE PPV23 12/24/2013 33 completed [facility] INFLUENZA, UNSPECIFIED FORMULATION 07/02/2013 88 completed [facility] 15 INFLUENZA (HISTORICAL) 10/30/2012 88 completed [facility] INFLUENZA, UNSPECIFIED FORMULATION 06/01/2011 88 completed [facility] INFLUENZA, UNSPECIFIED FORMULATION 07/01/2010 [address] [facility] TD(ADULT) UNSPECIFIED FORMULATION 04/15/2010 139 completed DARION MARTINEZ [facility] NOVEL [id number], ALL FORMULATIONS 10/21/2009 128 completed N [employer] [facility] INFLUENZA, UNSPECIFIED FORMULATION 06/04/2009 88 completed [facility] INFLUENZA, UNSPECIFIED FORMULATION 07/30/2008 88 completed [facility] 15 INFLUENZA, UNSPECIFIED FORMULATION 07/21/2006 88 completed [facility] TETANUS TOXOID, UNSPECIFIED FORMULATION 08/18/1999 DEMETRA UREÑA 112 completed [facility] Results Combined list of recent chemistry, hematology and other laboratory results going back no more than 15 months from the Department of Defense and Veterans Affairs facilities. Order Name Results Value Reference Range Date Interpretation Specimen Comments Source HEMOGLOBIN A1C HEMOGLOBIN A1C/ HEMOGLOBIN.TOTAL IN BLOOD BY HPLC 6.3 % 4.0 - 6.0 10/09/2019 H Specimen Type: BLOOD No comment entered. [facility] COMPREHENSIVE METABOLIC PANEL CREATININE [MASS/VOLUME] IN SERUM OR PLASMA 0.91 mg/dL 0.6 - 1.1 05/30/2019 Specimen Type: PLASMA Comment: For eGFR: eGFR results >60 are imprecise. Many variables affect the calculated result. Interpretation of eGFR results >60 must be monitored over time. [facility] COMPREHENSIVE METABOLIC PANEL UREA NITROGEN [MASS/VOLUME] IN SERUM OR PLASMA 11 mg/dL 9 - 25 05/30/2019 Specimen Type: PLASMA Comment: For eGFR: eGFR results >60 are imprecise. Many variables affect the calculated result. Interpretation of eGFR results >60 must be monitored over time. [facility] COMPREHENSIVE METABOLIC PANEL GLUCOSE [MASS/VOLUME] IN SERUM OR PLASMA 169 mg/dL 72 - 99 05/30/2019 H Specimen Type: PLASMA Comment: For eGFR: eGFR results >60 are imprecise. Many variables affect the calculated result. Interpretation of eGFR results >60 must be monitored over time. [facility] COMPREHENSIVE METABOLIC PANEL SODIUM [MOLES/VOLUME] IN SERUM OR PLASMA 140 mEq/L 136 - 145 05/30/2019 Specimen Type: PLASMA Comment: For eGFR: eGFR results >60 are imprecise. Many variables affect the calculated result. Interpretation of eGFR results >60 must be monitored over time. [facility] COMPREHENSIVE METABOLIC PANEL POTASSIUM [MOLES/VOLUME] IN SERUM OR PLASMA 4.1 mEq/L 3.5 - 5.0 05/30/2019 Specimen Type: PLASMA Comment: For eGFR: eGFR results >60 are imprecise. Many variables affect the calculated result. Interpretation of eGFR results >60 must be monitored over time. [facility] METABOLIC PANEL CALCIUM [MASS/VOLUME] IN SERUM OR PLASMA 9.4 mg/dL 8.4 - 10.4 05/30/2019 Specimen Type: PLASMA Comment: For eGFR: eGFR results >60 are imprecise. Many variables affect the calculated result. Interpretation of eGFR results >60 must be monitored over time. [facility] METABOLIC PANEL PROTEIN [MASS/VOLUME] IN SERUM OR PLASMA 7.2 g/dL 6.0 - 8.6 05/30/2019 Specimen Type: PLASMA Comment: For eGFR: eGFR results >60 are imprecise. Many variables affect the calculated result. Interpretation of eGFR results >60 must be monitored over time. [facility] METABOLIC [facility] ALBUMIN [MASS/VOLUME] IN SERUM OR PLASMA 4.3 g/dl 3.4 - 5.0 05/30/2019 Specimen Type: PLASMA Comment: For eGFR: eGFR results >60 are imprecise. Many variables affect the calculated result. Interpretation of eGFR results >60 must be monitored over time. [facility] METABOLIC [facility] BILIRUBIN.TOTAL [MASS/VOLUME] IN SERUM OR PLASMA 0.3 mg/dL 0.2 - 1.2 05/30/2019 Specimen Type: PLASMA Comment: For eGFR: eGFR results >60 are imprecise. Many variables affect the calculated result. Interpretation of eGFR results >60 must be monitored over time. [facility] METABOLIC [facility] ASPARTATE AMINOTRANSFERASE [ENZYMATIC ACTIVITY/VOLUME] IN SERUM OR PLASMA 21 U/L 5 - 34 05/30/2019 Specimen Type: PLASMA Comment: For eGFR: eGFR results >60 are imprecise. Many variables affect the calculated result. Interpretation of eGFR results >60 must be monitored over time. [facility] METABOLIC PANEL ALANINE AMINOTRANSFERASE [ENZYMATIC ACTIVITY/VOLUME] IN SERUM OR PLASMA 41 U/L 8 - 40 05/30/2019 H Specimen Type: PLASMA Comment: For eGFR: eGFR results >60 are imprecise. Many variables affect the calculated result. Interpretation of eGFR results >60 must be monitored over time. [facility] METABOLIC PANEL ANION GAP IN SERUM OR PLASMA 7.4 2018 L Specimen Type: PLASMA Comment: For eGFR: eGFR results >60 are imprecise. Many variables affect the calculated result. Interpretation of eGFR results >60 must be monitored over time. [facility] COMPREHENSIVE METABOLIC PANEL CHLORIDE [MOLES/VOLUME] IN SERUM OR PLASMA 109 mEq/L 98 - 107 05/30/2019 H Specimen Type: PLASMA Comment: For eGFR: eGFR results >60 are imprecise. Many variables affect the calculated result. Interpretation of eGFR results >60 must be monitored over time. [facility] COMPREHENSIVE METABOLIC PANEL CARBON DIOXIDE, TOTAL [MOLES/VOLUME] IN SERUM OR PLASMA 23.6 mEq/L 22 - 31 05/30/2019 Specimen Type: PLASMA Comment: For eGFR: eGFR results >60 are imprecise. Many variables affect the calculated result. Interpretation of eGFR results >60 must be monitored over time. [facility] METABOLIC PANEL ALKALINE PHOSPHATASE [ENZYMATIC ACTIVITY/VOLUME] IN SERUM OR PLASMA 76 U/L 40 - 150 05/30/2019 Specimen Type: PLASMA Comment: For eGFR: eGFR results >60 are imprecise. Many variables affect the calculated result. Interpretation of eGFR results >60 must be monitored over time. [facility] METABOLIC [facility] GLOMERULAR FILTRATION RATE/1.73 SQ M.PREDICTED [VOLUME RATE/AREA] IN SERUM OR PLASMA BY CREATININE- BASED FORMULA (MDRD) >60 05/30/2019 Specimen Type: PLASMA Comment: For eGFR: eGFR results >60 are imprecise. Many variables affect the calculated result. Interpretation of eGFR results >60 must be monitored over time. [facility] LITHIUM LITHIUM [MOLES/VOLUME] IN SE RUM OR PLASMA 0.7 mmol/L 0.6 - 1.2 05/30/2019 Specimen Type: SERUM Comment: ~For Test: LITHIUM ~Dose is expected to be at &TROUGH level. [facility] HEMOGLOBIN A1C HEMOGLOBIN A1C/ HEMOGLOBIN.TOTAL IN BLOOD BY HPLC 8.1 % 4.0 - 6.0 05/30/2019 H Specimen Type: BLOOD No comment entered. [facility] CBC & DIFF LEUKOCYTES [#/VOLUM E] IN BLOOD BY AUTOMATED COUNT 7.5 K/cmm 3.60 - 11.20 11/26/2018 Specimen Type: BLOOD No comment entered. [facility] CBC & DIFF ERYTHROCYTES [#/VOL UME] IN BLOOD BY AUTOMATED COUNT 4.83 M/ul 3.6 - 5 11/26/2018 Specimen Type: BLOOD No comment entered. [employer] CBC & DIFF HEMOGLOBIN [MASS/VOLUME] IN BLOOD 14.2 g/dl 11 - 14.9 11/26/2018 Specimen T ype: BLOOD No comment entered. [facility] CBC & DIFF HEMATOCRIT [VOLUME FRACTION] OF BLOOD BY AUTOMATED COUNT 41.8 % 32.6 - 43.4 11/26/2018 Specimen Type: BLOOD No comment entered. [facility] CBC & DIFF MCV [ENTITIC VOLUME] BY A UTOMATED COUNT 86.5 fl 80.1 - 98.5 11/26/2018 Specimen Type: BLOOD No comment entered. [facility] CBC & DIFF MCH [ENTITIC MASS] BY AUT OMATED COUNT 29.4 pg 27.0 - 34.0 11/26/2018 Specimen T ype: BLOOD No comment entered. [facility] CBC & DIFF MCHC [MASS/VOLUME] BY AUT OMATED COUNT 34.0 g/dl 33.0 - 36.0 11/26/2018 Specimen Type: BLOOD No comment entered. [facility] CBC & DIFF PLATELETS [#/VOLUME ] IN BLOOD BY AUTOMATED COUNT 237 K/cmm 150 - 400 11/26/2018 Specimen Type: BLOOD No comment entered. [facility] CBC & DIFF PLATELET MEAN VOLUM E [ENTITIC VOLUME] IN BLOOD BY AUTOMATED COUNT 10.5 fl 7.5 - 11.2 11/26/2018 Specimen Type: BLOOD No comment entered. [facility] CBC & DIFF ERYTHROCYTE DISTRIB UTION WIDTH [RATIO] BY AUTOMATED COUNT 13.2 % 11.8 - 15.1 11/26/2018 Specimen Type: BLOOD No comment entered. [facility] CBC & DIFF LYMPHOCYTES/100 MATHEW KOCYTES IN BLOOD BY AUTOMATED COUNT 28.0 % 11/26/2018 Specimen Type: BLOOD No comment entered. [facility] CBC & DIFF NEUTROPHILS/100 MATHEW KOCYTES IN BLOOD BY AUTOMATED COUNT 56.3 % 11/26/2018 Specimen Type: BLOOD No comment entered. [facility] CBC & DIFF MONOCYTES/100 LEUKO CYTES IN BLOOD BY AUTOMATED COUNT 10.9 % 11/26/2018 Specimen Type: BLOOD No comment entered. [facility] CBC & DIFF MONOCYTES [#/VOLUME ] IN BLOOD BY AUTOMATED COUNT 0.8 K/cmm 0.19 - 0.80 11/26/2018 Specimen Type: BLOOD No comment entered. [facility] CBC & DIFF NEUTROPHILS [#/VOLU ME] IN BLOOD BY AUTOMATED COUNT 4.2 K/cmm 2.10 - 8.00 11/26/2018 Specimen Type: BLOOD No comment entered. [facility] CBC & DIFF EOSINOPHILS [#/VOLU ME] IN BLOOD BY AUTOMATED COUNT 0.3 K/cmm 0.00 - 0.60 11/26/2018 Specimen Type: BLOOD No comment entered. [facility] CBC & DIFF BASOPHILS [#/VOLUME ] IN BLOOD BY AUTOMATED COUNT 0.1 K/cmm 0.00 - 0.20 11/26/2018 Specimen Type: BLOOD No comment entered. [facility] CBC & DIFF EOSINOPHILS/100 MATHEW KOCYTES IN BLOOD BY AUTOMATED COUNT 3.3 % 11/26/2018 Specimen Type: BLOOD No comment entered. [facility] CBC & DIFF BASOPHILS/100 LEUKO CYTES IN BLOOD BY AUTOMATED COUNT 0.8 % 11/26/2018 Specimen Type: BLOOD No comment entered. [facility] CBC & DIFF LYMPHOCYTES [#/VOLU ME] IN BLOOD BY AUTOMATED COUNT 2.1 K/cmm 0.77 - 4.50 11/26/2018 Specimen Type: BLOOD No comment entered. [facility] CBC & DIFF IMMATURE GRANULOCYT ES [#/VOLUME] IN BLOOD BY AUTOMATED COUNT 0.05 K/cmm 0.00 - 0.05 11/26/2018 Specimen Type: BLOOD No comment entered. [facility] CBC & DIFF IMMATURE GRANULOCYT ES/100 LEUKOCYTES IN BLOOD BY AUTOMATED COUNT 0.7 % 11/26/2018 Specimen Type: BLOOD No comment entered. [facility] COMPREHENSIVE METABOLIC PANEL CREATININE [MASS/VOLUME] IN SERUM OR PLASMA 0.86 mg/dL 0.6 - 1.1 11/26/2018 Specimen Type: PLASMA Comment: For eGFR: eGFR results >60 are imprecise. Many variables affect the calculated result. Interpretation of eGFR results >60 must be monitored over time. [facility] COMPREHENSIVE METABOLIC PANEL UREA NITROGEN [MASS/VOLUME] IN SERUM OR PLASMA 13 mg/dL 9 - 25 11/26/2018 Specimen Type: PLASMA Comment: For eGFR: eGFR results >60 are imprecise. Many variables affect the calculated result. Interpretation of eGFR results >60 must be monitored over time. [facility] COMPREHENSIVE METABOLIC PANEL GLUCOSE [MASS/VOLUME] IN SERUM OR PLASMA 213 mg/dL 72 - 99 11/26/2018 H Specimen Type: PLASMA Comment: For eGFR: eGFR results >60 are imprecise. Many variables affect the calculated result. Interpretation of eGFR results >60 must be monitored over time. [facility] COMPREHENSIVE METABOLIC PANEL SODIUM [MOLES/VOLUME] IN SERUM OR PLASMA 143 mEq/L 136 - 145 11/26/2018 Specimen Type: PLASMA Comment: For eGFR: eGFR results >60 are imprecise. Many variables affect the calculated result. Interpretation of eGFR results >60 must be monitored over time. [facility] COMPREHENSIVE METABOLIC PANEL POTASSIUM [MOLES/VOLUME] IN SERUM OR PLASMA 4.1 mEq/L 3.5 - 5.0 11/26/2018 Specimen Type: PLASMA Comment: For eGFR: eGFR results >60 are imprecise. Many variables affect the calculated result. Interpretation of eGFR results >60 must be monitored over time. [facility] COMPREHENSIVE METABOLIC PANEL CALCIUM [MASS/VOLUME] IN SERUM OR PLASMA 10.0 mg/dL 8.4 - 10.4 11/26/2018 Specimen Type: PLASMA Comment: For eGFR: eGFR results >60 are imprecise. Many variables affect the calculated result. Interpretation of eGFR results >60 must be monitored over time. [facility] COMPREHENSIVE METABOLIC PANEL PROTEIN [MASS/VOLUME] IN SERUM OR PLASMA 7.5 g/dL 6.0 - 8.6 11/26/2018 Specimen Type: PLASMA Comment: For eGFR: eGFR results >60 are imprecise. Many variables affect the calculated result. Interpretation of eGFR results >60 must be monitored over time. [facility] COMPREHENSIVE METABOLIC PANEL ALBUMIN [MASS/VOLUME] IN SERUM OR PLASMA 4.5 g/dl 3.4 - 5.0 11/26/2018 Specimen Type: PLASMA Comment: For eGFR: eGFR results >60 are imprecise. Many variables affect the calculated result. Interpretation of eGFR results >60 must be monitored over time. [facility] COMPREHENSIVE METABOLIC PANEL BILIRUBIN.TOTAL [MASS/VOLUME] IN SERUM OR PLASMA 0.4 mg/dL 0.2 - 1.2 11/26/2018 Specimen Type: PLASMA Comment: For eGFR: eGFR results >60 are imprecise. Many variables affect the calculated result. Interpretation of eGFR results >60 must be monitored over time. [facility] COMPREHENSIVE METABOLIC PANEL ASPARTATE AMINOTRANSFERASE [ENZYMATIC ACTIVITY/VOLUME] IN SERUM OR PLASMA 46 U/L 5 - 34 11/26/2018 H Specimen Type: PLASMA Comment: For eGFR: eGFR results >60 are imprecise. Many variables affect the calculated result. Interpretation of eGFR results >60 must be monitored over time. [facility] COMPREHENSIVE METABOLIC PANEL ALANINE AMINOTRANSFERASE [ENZYMATIC ACTIVITY/VOLUME] IN SERUM OR PLASMA 96 U/L 8 - 40 11/26/2018 H Specimen Type: PLASMA Comment: For eGFR: eGFR results >60 are imprecise. Many variables affect the calculated result. Interpretation of eGFR results >60 must be monitored over time. [facility] COMPREHENSIVE METABOLIC PANEL ANION GAP IN SERUM OR PLASMA 7.8 2018 L Specimen Type: PLASMA Comment: For eGFR: eGFR results >60 are imprecise. Many variables affect the calculated result. Interpretation of eGFR results >60 must be monitored over time. [facility] COMPREHENSIVE METABOLIC PANEL CHLORIDE [MOLES/VOLUME] IN SERUM OR PLASMA 108 mEq/L 98 - 107 11/26/2018 H Specimen Type: PLASMA Comment: For eGFR: eGFR results >60 are imprecise. Many variables affect the calculated result. Interpretation of eGFR results >60 must be monitored over time. [facility] COMPREHENSIVE METABOLIC PANEL CARBON DIOXIDE, TOTAL [MOLES/VOLUME] IN SERUM OR PLASMA 27.2 mEq/L 22 - 31 11/26/2018 Specimen Type: PLASMA Comment: For eGFR: eGFR results >60 are imprecise. Many variables affect the calculated result. Interpretation of eGFR results >60 must be monitored over time. [facility] COMPREHENSIVE METABOLIC PANEL ALKALINE PHOSPHATASE [ENZYMATIC ACTIVITY/VOLUME] IN SERUM OR PLASMA 94 U/L 40 - 150 11/26/2018 Specimen Type: PLASMA Comment: For eGFR: eGFR results >60 are imprecise. Many variables affect the calculated result. Interpretation of eGFR results >60 must be monitored over time. [facility] COMPREHENSIVE METABOLIC PANEL GLOMERULAR FILTRATION RATE/1.73 SQ M.PREDICTED [VOLUME RATE/AREA] IN SERUM OR PLASMA BY CREATININE- BASED FORMULA (MDRD) >60 11/26/2018 Specimen Type: PLASMA Comment: For eGFR: eGFR results >60 are imprecise. Many variables affect the calculated result. Interpretation of eGFR results >60 must be monitored over time. [facility] LIPID PROFILE(HDL,TRIG,CHOL,LDL) CHOLESTEROL [MASS/VOLUME] IN SERUM OR PLASMA 258 mg/dL 0 - 200 11/26/2018 H Specimen Type: PLASMA Comment: For eGFR: eGFR results >60 are imprecise. Many variables affect the calculated result. Interpretation of eGFR results >60 must be monitored over time. [facility] LIPID PROFILE(HDL,TRIG,CHOL,LDL) TRIGLYCERIDE [MASS/VOLUME] IN SERUM OR PLASMA 170 mg/dL 0 - 150 11/26/2018 H Specimen Type: PLASMA Comment: For eGFR: eGFR results >60 are imprecise. Many variables affect the calculated result. Interpretation of eGFR results >60 must be monitored over time. [facility] LIPID PROFILE(HDL,TRIG,CHOL,LDL) CHOLESTEROL IN HDL [MASS/VOLUME] IN SERUM OR PLASMA 61 mg/dL 11/26/2018 Specimen Type: PLASMA Comment: For eGFR: eGFR results >60 are imprecise. Many variables affect the calculated result. Interpretation of eGFR results >60 must be monitored over time. [facility] LIPID PROFILE(HDL,TRIG,CHOL,LDL) CHOLESTEROL IN LDL [MASS/VOLUME] IN SERUM OR PLASMA BY CALCULATION 163.0 mg/dL 0 - 99.9 11/26/2018 H Specimen Type: PLASMA Comment: For eGFR: eGFR results >60 are imprecise. Many variables affect the calculated result. Interpretation of eGFR results >60 must be monitored over time. [facility] URINALYSIS COLOR OF URINE Yello w 11/26/2018 Specimen Type: URINE No comment entered. [facility] URINALYSIS SPECIFIC GRAVITY OF URINE 1.006 11/26/2018 Specimen Type: URINE No comment entered. [facility] URINALYSIS UROBILINOGEN [MASS/VOLUME ] IN URINE Negativemg/dL 0.1 - 1.0 11/26/2018 Specimen Type: URINE No comment entered. [facility] URINALYSIS BILIRUBIN.TOTAL [DC ESENCE] IN URINE BY TEST STRIP Negative 0 11/26/2018 Specimen Type: URINE No comment entered. [facility] URINALYSIS KETONES [MASS/VOLUME] IN URINE BY TEST STRIP Negativemg/dl 11/26/2018 Specimen Type: URINE No comment entered. [facility] URINALYSIS GLUCOSE [MASS/VOLUME] IN URINE BY TEST STRIP Negativemg/dL 11/26/2018 Specimen Type: URINE No comment entered. [facility] URINALYSIS PROTEIN [MASS/VOLUME] IN URINE BY TEST STRIP Negativemg/dl - Trace" 11/26/2018 Specimen Type: URINE No comment entered. [facility] URINALYSIS PH OF URINE BY TEST STRIP 6.0 11/26/2018 Specimen Type: URINE No comment entered. [facility] URINALYSIS APPEARANCE OF URINE Clear 11/26/2018 Specimen Type: URINE No comment entered. [facility] URINALYSIS HEMOGLOBIN [PRESENCE] IN URINE Negative 11/26/2018 Specimen Type: URINE No comment entered. [facility] URINALYSIS NITRITE [PRESENCE] IN URI NE BY TEST STRIP Negative 11/26/2018 Specimen T ype: URINE No comment entered. [facility] URINALYSIS LEUKOCYTE ESTERASE [PRESENCE] IN URINE BY TEST STRIP Negative 0 11/26/2018 Specimen Type: URINE No comment entered. [facility] TSH THYROTROPIN [UNITS/VOLUME] IN SE RUM OR PLASMA 2.52 uIU/mL 0.47 - 5.00 11/26/2018 Specimen Type: SERUM No comment entered. [facility] MICROALBUMIN ([place] RANDOM URINE MICROALBUMIN [MASS/VOLUME] IN URINE 27 ug/mL 11/26/2018 Specimen Type: URINE No comment entered. [facility] MICROALBUMIN ([place]) RANDOM URINE MICROALBUMIN/CREATININE [MASS RATIO] IN URINE 83 mcg/mgcr 11/26/2018 Specimen Type: URINE No comment entered. [facility] MICROALBUMIN ([place] RANDOM URINE CREATININE [MASS/VOLUME] IN URINE 32.4 mg/dL 11/26/2018 Specimen Type: URINE No comment entered. [facility] Vital Signs Combined list of inpatient and outpatient Vital Signs from all Department of [facility] and/or Veterans Affairs medical facilities within the last 15 months. The included entries comply with the patient's data sharing authorizations. Vital Sign Value Date Comments Source PAIN 5 01/22 14:27:00 [facility] SYSTOLIC BLOOD PRESSURE 132mm[ Hg] 04/01/2019 15:11:03 [facility] DIASTOLIC BLOOD PRESSURE 84mm[ Hg] 04/01/2019 15:11:03 [facility] Encounters Combined list of encounters at Department of Defense and/or Veterans Affairs (VA ) for the last 15 months. Not all VA inpatient encounters are included. The incl uded entries comply with the patient's data sharing authorizations. Location Location Details Encounter Type Encounter Number Reason For Visit Attending Provider ADM Date DC Date Status Disposition Source Outpatient Encounter [id number] _[facility]:e [id number] 11/26/2018 [place] [address] Outpatient Encounter [id number] ICD-10 -CM Z13.5 Encounter for screening for eye and ear disorders with Provider Comments: Encounter for Screening for Eye and Ear Disorders GWEN OCHOA 11/26/2018 [facility] OFFICE/OUT PATIENT VISIT EST [id number] ICD-10 -CM E11.65 Type 2 diabetes mellitus with hyperglycemia with Provider Comments: Diabetes mellitus ([facility] [id number]) SIMON NEELY 11/26/2018 [facility] Outpatient Encounter [id number] ICD-10 -CM E11.9 Type 2 diabetes mellitus without complications with Provider Comments: Type 2 Diabetes Mellitus without Complications GWEN OCHOA 11/26/2018 [facility] Outpatient Encounter [id number] ICD-10-C M Z13.5 Encounter for screening for eye and ear disorders with Provider Comments: Encounter for Screening for Eye and Ear Disorders JEREL AGUILLON 11/26/2018 [facility] 15 Outpatient Encounter [id number] _MAPID:e [id number] 11/27/2018 [facility] 15 Outpatient Encounter [id number] ICD-10 -CM Z71.89 Other specified counseling with Provider Comments: Other specified counseling ROSSY NUNO 12/17/2018 [facility] Outpatient Encounter [id number] _MAPID:[id number] 12/19/2018 [facility] Outpatient Encounter [id number] _MAPID:[id number] 12/26/2018 [facility] Outpatient Encounter [id number] _MAPID:[id number] EMBER JARVIS 01/11/2019 [facility] Outpatient Encounter [id number] _MAPID:e [id number] 02/07/2019 [facility] 15 Outpatient Encounter [id number] _MAPID:e [id number] 02/07/2019 [facility] 15 Outpatient Encounter [id number] _MAPID:[id number] 02/07/2019 [facility] Jose Roberto [facility] Outpatient Encounter [id number] _MAPID:[id number] 02/08/2019 [facility] [id number] _MAPID:[id number] 02/11/2019 [place] [facility] [id number] ICD-10 -CM F31.32 Bipolar disorder, current episode depressed, moderate with Provider Comments: Bipolar disorder ([facility] [id number]) BLAINE WOLFF 02/12/2019 [facility] Outpatient Encounter [id number] _MAPID:[id number] 02/21/2019 [facility] Outpatient Encounter [id number] ICD-10 -CM F31.32 Bipolar disorder, current episode depressed, moderate with Provider Comments: Bipolar disorder ([facility] [id number]) BLAINE WOLFF 02/22/2019 [facility] Outpatient Encounter [id number] ICD-10 -CM F31.32 Bipolar disorder, current episode depressed, moderate with Provider Comments: Bipolar disorder ([facility] [id number]) BLAINE WOLFF 02/25/2019 [facility] OFFICE/OUT PATIENT VISIT EST [id number] ICD-10 -CM F31.32 Bipolar disorder, current episode depressed, moderate with Provider Comments: Bipolar disorder ([facility] [id number]) KIMBERLY TARIQ 04/01/2019 [facility] Outpatient Encounter [id number] ICD-10 -CM F31.32 Bipolar disorder, current episode depressed, moderate with Provider Comments: Bipolar disorder ([facility] [id number]) KIMBERLY BANG 04/01/2019 [facility] Outpatient Encounter [id number] _MAPID:[id number] 05/28/2019 [facility] Cid [facility] Outpatient Encounter [id number] _MAPID:[id number] 05/28/2019 [facility] Cid [facility] Outpatient Encounter [id number] ICD-10 -CM Z71.89 Other specified counseling with Provider Comments: Other specified counseling EMBER JARVIS Christian[facility] 05/29/2019 [place] [facility] [id number] _MAPID: EMBER JARVIS Christiano 06/03/2019 [facility] Outpatient Encounter [id number] ICD-10 -CM F31.32 Bipolar disorder, current episode depressed, moderate with Provider Comments: Bipolar disorder ([facility]CT [id number]) SIMONABETTIEEMBER J 06/03/2019 [facility] Outpatient Encounter [id number] _MAPID:06/03/2019 [facility] Outpatient Encounter [id number] ICD-10 -CM F31.32 Bipolar disorder, current episode depressed, moderate with Provider Comments: Bipolar disorder ([facility] [id number]) SIMONA,EMBER J 06/04/2019 [facility] Outpatient Encounter [id number] _MAPID:e [id number] 06/25/2019 [facility] 15 OFFICE/OUT PATIENT VISIT EST [id number] ICD-10 -CM F31.32 Bipolar disorder, current episode depressed, moderate with Provider Comments: Bipolar disorder ([facility] [id number]) KANG ZAYAS 08/06/2019 [facility] Outpatient Encounter [id number] ICD-10 -CM F31.32 Bipolar disorder, current episode depressed, moderate with Provider Comments: Bipolar disorder ([facility] [id number]) KANG ZAYAS 08/06/2019 [facility] Outpatient Encounter [id number] _MAPID:[id number] 10/09/2019 [facility] Outpatient Encounter [id number] ICD-10 -CM F31.32 Bipolar disorder, current episode depressed, moderate with Provider Comments: Bipolar disorder ([facility] [id number]) AMANDA DAUGHERTY 10/10/2019 [facility] Outpatient Encounter [id number] ICD-10 -CM F31.32 Bipolar disorder, current episode depressed, moderate with Provider Comments: Bipolar disorder ([facility] [id number]) AMANDA DAUGHERTY 10/11/2019 [facility] Outpatient Encounter [id number] _MAPID:[id number] CHARLETTERENÉ ChongSaritha Nichols 01/06/2020 [facility] Outpatient Encounter [id number] _MAPID:[id number] 01/16/2020 [facility] Outpatient Encounter [id number] _MAPID:e [id number] 01/23/2020 [place] [address] Outpatient Encounter [id number] ICD-10 -CM M25.569 Pain in unspecified knee with Provider Comments: Pain in unspecified Knee SIMON NEELY 01/23/2020 [facility] OFFICE/OUT PATIENT VISIT EST [id number] ICD-10 -CM F31.32 Bipolar disorder, current episode depressed, moderate with Provider Comments: Bipolar disorder ([facility] [id number]) ELOISE HUYNH 02/12/2020 [facility] Outpatient Encounter [id number] _MAPID :endRe8 02/21/2020 [facility] Outpatient Encounter [id number] _MAPID :[id number] 02/28/2020 [facility] Outpatient Encounter [id number] ICD-10 -CM F31.32 Bipolar disorder, current episode depressed, moderate with Provider Comments: Bipolar disorder ([facility] [id number]) SIMONAEMBER AGUILAR Christiano 03/02/2020 [facility] Outpatient Encounter [id number] _MAPID :[id number] [facility] Out[facility] Encounter [id number] _MAPID :[id number] MOOSEBRANDEN EWING Evelyn 03/17/2020 [facility] Outpatient Encounter [id number] ICD-10 -CM F31.32 Bipolar disorder, current episode depressed, moderate with Provider Comments: Bipolar disorder ([facility] [id number]) KARRIE SCHMITZ 03/19/2020 [facility] OFFICE/OUT PATIENT VISIT EST [id number] ICD-10 -CM F31.32 Bipolar disorder, current episode depressed, moderate with Provider Comments: Bipolar disorder ([facility] [id number]) ELOISE HUYNH 03/24/2020 [facility] Outpatient Encounter [id number] _MAPID :endRe03/24/2020 [facility] [facility] Roberto [facility] Procedures No Data Provided for This Section Social History Combined list of available smoking, tobacco, and other social history on record at Department of Defense and/or Veterans Affairs facilities. The included entrie s comply with the patient's data sharing authorizations. Social History Type Response Date Comment Source Tobacco smoking status [facility]TOBACCO NEVER USED 01/16/2020 [facility] History of tobacco use CURRE NT NON-SMOKER 11/21/2018 [facility] History of tobacco use LIFET DAVID NON-TOBACCO USER 11/21/2018 [facility] History of tobacco use HF TO B FORMER TOBACCO USER 09/04/2017 [facility] History of tobacco use CURRE NT NON-SMOKER 02/27/2017 [facility] History of tobacco use LIFET DAVID NON-TOBACCO USER 02/27/2017 [facility] History of tobacco use CURRE NT NON-SMOKER 12/28/2015 [facility] History of tobacco use LIFET DAVID NON-TOBACCO USER 12/28/2015 [facility] History of tobacco use CURRE NT NON-SMOKER 09/08/2015 [facility] History of tobacco use LIFET DAVID NON-TOBACCO USER 09/08/2015 [facility] History of tobacco use CURRE NT NON-SMOKER 05/14/2015 [facility] History of tobacco use LIFET DAVID NON-TOBACCO USER 05/14/2015 [facility] History of tobacco use CURRE NT NON-SMOKER 01/12/2015 [facility] History of tobacco use LIFET DAVID NON-TOBACCO USER 01/12/2015 [facility] History of tobacco use CURRE NT NON-SMOKER 12/08/2014 [facility] History of tobacco use LIFET DAVID NON-TOBACCO USER 12/08/2014 [facility] History of tobacco use CURRE NT NON-SMOKER 10/20/2014 [facility] History of tobacco use LIFET DAVID NON-TOBACCO USER 10/20/2014 [facility] History of tobacco use CURRE NT NON-SMOKER 07/22/2014 [facility] History of tobacco use LIFET DAVID NON-TOBACCO USER 07/22/2014 [facility] History of tobacco use NON-T OBACCO USER 02/04/2014 [facility] History of tobacco use CURRE NT NON-SMOKER 01/10/2014 [facility] History of tobacco use LIFET DAVID NON-TOBACCO USER 01/10/2014 [facility] History of tobacco use CURRE NT NON-SMOKER 12/16/2013 [facility] History of tobacco use LIFET DAVID NON-TOBACCO USER 12/16/2013 [facility] History of tobacco use CURRE NT NON-SMOKER 01/14/2013 [facility] History of tobacco use LIFET DAVID NON-TOBACCO USER 01/14/2013 [facility] History of tobacco use CURRE NT NON-SMOKER 10/30/2012 [facility] History of tobacco use LIFET DAVID NON-TOBACCO USER 10/30/2012 [facility] History of tobacco use CURRE NT NON-SMOKER 02/14/2012 [facility] History of tobacco use LIFET DAVID NON-TOBACCO USER 02/14/2012 [facility] History of tobacco use CURRE NT NON-SMOKER 06/01/2011 [facility] History of tobacco use LIFET DAVID NON-TOBACCO USER 06/01/2011 [facility] History of tobacco use NON-T OBACCO USER 03/21/2011 [facility] History of tobacco use CURRE NT NON-SMOKER 03/21/2011 [facility] History of tobacco use LIFET DAVID NON-TOBACCO USER 03/21/2011 [facility] History of tobacco use CURRE NT NON-SMOKER 03/14/2011 [facility] History of tobacco use LIFET DAVID NON-TOBACCO USER 03/14/2011 [facility] History of tobacco use CURRE NT NON-SMOKER 08/03/2010 [facility] History of tobacco use LIFET DAVID NON-TOBACCO USER 08/03/2010 [facility] History of tobacco use CURRE NT NON-SMOKER 04/15/2010 [facility] History of tobacco use LIFET DAVID NON-TOBACCO USER 04/15/2010 [facility] History of tobacco use CURRE NT NON-SMOKER 03/09/2010 [facility] History of tobacco use LIFET DAVID NON-TOBACCO USER 03/09/2010 [facility] History of tobacco use CURRE NT NON-SMOKER 01/14/2010 [facility] History of tobacco use LIFET DAVID NON-TOBACCO USER 01/14/2010 [facility] History of tobacco use CURRE NT NON-SMOKER 11/06/2009 [facility] History of tobacco use LIFET DAVID NON-TOBACCO USER 11/06/2009 [facility] History of tobacco use EK-NO N TOBACCO USE PAST 12 MO 09/14/2009 [facility] [place] [facility] History of tobacco use EK-NO N TOBACCO USE PAST 12 MO 05[facility]27/2009 [facility] [place] [facility] History of tobacco use CURRE NT NON-SMOKER 03/23/2009 [facility] History of tobacco use LIFET DAVID NON-TOBACCO USER 03/23/2009 [facility] History of tobacco use CURRE NT NON-SMOKER 10/23/2008 [facility] History of tobacco use LIFET DAVID NON-TOBACCO USER 10/23/2008 [facility] History of tobacco use CURRE NT NON-SMOKER 09/27/2007 [facility] History of tobacco use LIFET DAVID NON-TOBACCO USER 09/27/2007 [facility] History of tobacco use LIFET DAVID NON-USER OF TOBACCO 02/12/2007 [facility] History of tobacco use LIFET DAVID NON TOBACCO USER 01/27/2006 [facility] History of tobacco use LIFET DAVID NON TOBACCO USER 12/08/2003 [facility] History of tobacco use LIFET DAVID NON-TOBACCO USER 10/16/2002 [facility] History of tobacco use LIFET DAVID NON-TOBACCO USER 10/11/2001 [facility] History of tobacco use LIFET DAVID NON-TOBACCO USER 04/07/2000 [facility] History of tobacco use CURRE NT NON-TOBACCO USER 03/23/2000 [facility] History of tobacco use LIFET DAVID NON-TOBACCO USER 08/18/1999 [facility] Assessment and Plan No Data Provided for This Section Plan of Care Date/Time Care Activity Care Activity Detail Facility 05/12/2020 AMBULATORY - PSYCHI ATRY AMBULATORY - PSYCHIATRY DARION MARTINEZ [facility] 04/16/2020 AMBULATORY - PSYCHI [facility] Family History No Data Provided for This Section Advance Directives List of completed, amended, or rescinded Advance Directives on record at [facility]. An actual copy of the Directive is not included. Date Advance Directive Provider Source 09/15/2009 ADVANCE DIRECTIVE D JADE HERNANDEZ [facility] [place] [facility] 07/21/2006 ADVANCE DIRECTIVE IMED,USER [facility] 07/12/2006 ADVANCE DIRECTIVE D SAV FERGUSON [facility] Functional Status No Data Provided for This Section
--- OUTSIDE RECORDS SUMMARY | 2020-03-28 08:18 | XMS REPORT | Encounter Summary ---
Author Author [facility] Organization [facility] Address [address] [place] [address] Phone Unavailable Care Team Providers Care Benefits Representative Name Role Phone FLORINDASIMON PCP Unavailable Insurance Providers: All historical and [...] PART A Aug 25, 2011 PART A [id number] GADBERRY,CHARLANNE PATIENT MEDICARE (WNR) MEDICARE (M) PART B Aug 25, 2011 PART B [id number] GADBERRY,CHARLANNE PATIENT MEDICARE (WNR) MEDICARE (M) PART A Aug 25, 2011 PART A [id number] GADBERRY,CHARLANNE PATIENT MEDICARE (WNR) MEDICARE (M) PART B Aug 25, 2011 PART B [id number] GADBERRY,CHARLANNE PATIENT MEDICARE (WNR) MEDICARE (M) PART A Aug 25, 2011 PART A [id number] SANDRA MORELOS PATIENT MEDICARE (WNR) MEDICARE (M) PART B Aug 25, 2011 PART B [id number] SANDRA MORELOS PATIENT MEDICARE PART D (WNR) MEDICARE (M) PART D Sep 25, 2012 PART D [id number] SANDRA WHITMAN PATIENT Selected Encounter This section includes the information on record at [place] for the Encounter. Date/Time Encounter Type Encounter Description Reason Provider Source February 21, 2020 01:29 PM Outpatient Encounter ADMIN PAT ACTIVTIES (LALI WATT) [facility] IHE Encounter Template Text not used by [...] appointme nts. The data comes from all [place] treatment facilities. Appointment Date/Time Appointment Type Appointment Facili ty Name Mar 24, 2020 08:30 AM AMBULATORY - PSYCHIATRY [facility] Apr 16, 2020 10:00 AM AMBULATORY - PSYCHIATRY [facility] May 12, 2020 10:00 AM AMBULATORY - PSYCHIATRY [facility] Surgical Procedures: All associated to the encounter [...] place. Date/Time Current Smoking Status Comment Facility Dec 28, 2015 10:28 AM CURRENT NON-SMOKER [facility] Tobacco Use History This section includes a history of the smoking, or tobacco -related health factors, that were collected on or before the date of the Encoun ter. The data comes from the [place] facility where the Encounter took place. Date/Time Smoking Status/Tobacco Use Comment Facil ity Dec 28, 2015 10:28 AM LIFETIME NON-TOBACCO USER DARION MARTINEZ [facility] May 14, 2015 10:33 AM CURRENT NON-SMOKER DARION MARTINEZ [facility] May 14, 2015 10:33 AM LIFETIME NON-TOBACCO USER DARION MARTINEZ [facility] Dec 08, 2014 10:25 AM CURRENT NON-SMOKER DARION MARTINEZ [facility] Dec 08, 2014 10:25 AM LIFETIME NON-TOBACCO USER DARION MARTINEZ [facility] Oct 20, 2014 09:33 AM CURRENT NON-SMOKER DARION MARTINEZ [facility] Oct 20, 2014 09:33 AM LIFETIME NON-TOBACCO USER DARION MARTINEZ [facility] Jul 22, 2014 09:41 AM CURRENT NON-SMOKER DARION MARTINEZ [facility] Jul 22, 2014 09:41 AM LIFETIME NON-TOBACCO USER DARION MARTINEZ [facility] February 04, 2014 10:04 AM NON-TOBACCO USER DARION MARTINEZ [facility] Dec 16, 2013 11:26 AM CURRENT NON-SMOKER DARION MARTINEZ [facility] Dec 16, 2013 11:26 AM LIFETIME NON-TOBACCO USER DARION MARTINEZ [facility] Jan 14, 2013 01:14 PM CURRENT NON-SMOKER DARION MARTINEZ [facility] Jan 14, 2013 01:14 PM LIFETIME NON-TOBACCO USER DARION MARTINEZ [facility] February 14, 2012 09:57 AM CURRENT NON-SMOKER [facility] February 14, 2012 09:57 AM LIFETIME NON-TOBACCO USER DARION MARTINEZ [facility] Mar 14, 2011 01:13 PM CURRENT NON-SMOKER DARION MARTINEZ [facility] Mar 14, 2011 01:13 PM LIFETIME NON-TOBACCO USER [facility] Apr 15, 2010 09:39 AM CURRENT NON-SMOKER [facility] Apr 15, 2010 09:39 AM LIFETIME NON-TOBACCO USER DARION MARTINEZ [facility] Mar 09, 2010 02:30 PM CURRENT NON-SMOKER DARION MARTINEZ [facility] Mar 09, 2010 02:30 PM LIFETIME NON-TOBACCO USER [facility] Nov 06, 2009 10:50 AM CURRENT NON-SMOKER DARION MARTINEZ [facility] Nov 06, 2009 10:50 AM LIFETIME NON-TOBACCO USER [facility] Advance Directives: All historical and current Section Date Range: From patient's date of to the date document was create d. This section includes ALL of a patient's completed or amen ded [place] Advance and Rescinded Directives. The entries below indicate that a direc tive exists for the patient, but an actual copy is not included with this docume nt. The data comes from all [place] facilities. Date Advance Directives Provider Source Sep 15, 2009 ADVANCE DIRECTIVE DISCUSSION JADE VARMA [facility] [place] [facility] Jul 21, 2006 ADVANCE DIRECTIVE [facility] Jul 12, 2006 ADVANCE DIRECTIVE DISCUSSION SAV PAULSON [facility] Allergies and Adverse Reactions (ADRs): All historical and current Section Date Range: From patient's date of to the date document was create d. This section includes Allergies and Adverse Reactions (ADR s) on record with [place] for the patient. The data comes from a ll [place] treatment facilities. It does not list Allergies/ADRs that were removed or entered in error. Some allergies/ADRs may be reported in t he Immunization section. Allergen Event Date Event Type Reaction(s) Severity Source ENALAPRIL Aug 22, 2017 Propensity to adverse reactions to drug (diso rder) [facility] ENAL[facility] May 04, 2007 Propensity to adverse reactions to drug ( disorder) Cough [facility] [place]QU[place] Aug 22, 2017 Propensity to adverse reactions to drug (diso rder) [facility] [place] Oct 08, 2015 Propensity to adverse reactions to drug (disorder) Eruption [facility] 15 LISINOPRIL Aug 22, 2017 Propensity to adverse reactions to drug (diso rder) [facility] LISIN[facility] Jan 16, 2007 Propensity to adverse reactions to drug (disorder) Cough [facility] NIACIN Aug 22, 2017 Propensity to adverse reactions to drug (diso rder) [facility] NIACIN Oct 23, 2008 Propensity to adverse reactions to drug ( disorder) Eruption [facility] 15 Medications: VA dispensed (-15 months) and Non-VA Documented (Obtained Outside A) Section Date Range: 1) prescriptions processed by a [place] pharmacy in the last 15 [facility], and 2) all medications recorded in the [...] may be a prescription from either the [place] or other providers that was filled outside the [place]. Or, it may be an over the [...] BLOOD GLUCOSE TESTING 50 Jun 06, 2020 [id number] February 21, 2020 SIMON NEELY AMLODIPINE BESYLATE 10MG TAB Active TAKE ONE TABLET BY MOUTH EVERY MORNING 90 January 23, 2021 [id number] Jan 23, 2020 SIMON NEELY AMLODIPINE BESYLATE 10MG TAB Discontinued TAKE ONE TA BLET BY MOUTH EVERY MORNING 90 Nov 27, 2019 [id number] Oct 21, 2019 SIMON NEELY ATORVASTATIN CA 20MG TAB Active TAKE ONE-HALF T ABLET BY MOUTH AT BEDTIME FOR CHOLESTEROL - REPORT ANY UNEXPLAINED MUSCLE PAIN/WEAKNESS TO YOUR PROVIDER TAKE IN PLACE OF CRESTOR, [facility] DOESNT SUPPLY CRESTOR, FOR CHOLESTEROL - REPORT ANY UNEXPLAINED MUSCLE PAIN/WEAKNESS TO YOUR PROVIDER TAKE IN PLACE OF CRESTOR, [facility]NT [facility]PPLY CRESTOR, 45 January 23, 2021 [id number] Jan 23, 2020 HARRISON NEELY ATORVASTATIN CA 20MG TAB Discontinued TAKE ONE-HALF T ABLET BY MOUTH AT BEDTIME FOR CHOLESTEROL - REPORT ANY UNEXPLAINED MUSCLE PAIN/WEAKNESS TO YOUR PROVIDER TAKE IN PLACE OF CRESTOR, [facility]NT [facility]PPLY CRESTOR, FOR CHOLESTEROL - REPORT ANY UNEXPLAINED MUSCLE PAIN/WEAKNESS TO YOUR PROVIDER TAKE IN PLACE OF CRESTOR, [facility] DO[facility]NT SUPPLY CRESTOR, 45 Dec 07, 2019 [id number] Mar 01, 2019 [facility] BRIEF,SUPER PLUS ABSORB WITH BARRIERS UNDERWEAR X-LARGE ATTE NDS Active USE DIRECTED DIRECTED FOR INCONTINENCE 56 Nov 04, 2020 [id number] Nov 09, 2019 SIMON NEELY BRIEF,SUPER PLUS ABSORB WITH BARRIERS UNDERWEAR X-LARGE ATTE NDS Discontinued USE DIRECTED DIRECTED FOR INCONTINENCE 56 Apr 01, 2020 [id number] Aug 06, 2019 SIMON NEELY GLIPIZIDE 5MG TAB Active TAKE ONE TABLET BY M OUTH EVERY DAY BEFORE BREAKFAST FOR DIABETES. TAKE 30 MINUTES BEFORE EATING. 90 Apr 22, 2020 [id number] February 12, 2020 SIMON NEELY GLIPIZIDE 5MG TAB Discontinued TAKE ONE TABLET BY M OUTH EVERY DAY BEFORE BREAKFAST FOR DIABETES. TAKE 30 MINUTES BEFORE EATING. 90 Feb 242019 [id number] February 12, 2020 SIMON NEELY GLIPIZIDE 5MG TAB Discontinued TAKE ONE TABLET BY M OUTH EVERY DAY BEFORE BREAKFAST FOR DIABETES. TAKE 30 MINUTES BEFORE EATING. 90 January [id number] Nov 24, 2019 SIMON NEELY GLIPIZIDE 5MG TAB Discontinued TAKE ONE TABLET BY M OUTH EVERY DAY BEFORE BREAKFAST FOR DIABETES. TAKE 30 MINUTES BEFORE EATING. 90 Nov [id number] Sep 05, 2019 SIMON NEELY LANCET,SOFTCLIX Active USE LANCET BIW FOR TESTING BL OOD GLUCOSE DIRECTED 100 Jun 06, 2020 [id number] Jun 07, 2019 SIMON NEELY C LITHIUM CARBONATE 300MG CAP Active TAKE 1 CAPSU LE BY MOUTH EVERY MORNING AND TAKE 3 CAPSULES BY MOUTH AT BEDTIME FOR MOOD. MUST MAKE AN APPT OR WILL TAPER AND DISCONTINUE MEDICATIONS 120 February 12, 2021 [id number] Mar 04, 2020 ELOISE BAUTISTA [facility] LITHIUM CARBONATE 300MG CAP Discontinued TAKE 1 CAPSU LE BY MOUTH EVERY MORNING AND TAKE 3 CAPSULES BY MOUTH AT BEDTIME FOR MOOD. MUST MAKE AN APPT OR WILL TAPER AND DISCONTINUE MEDICATIONS 120 Aug 06, 2020 [id number] Dec 16, 2019 [facility] LITHIUM CARBONATE 300MG CAP Discontinued TAKE 1 CAPSU LE BY MOUTH EVERY MORNING AND TAKE 3 CAPSULES BY MOUTH AT BEDTIME FOR MOOD. MUST MAKE AN APPT OR WILL TAPER AND DISCONTINUE MEDICATIONS 120 Jun 10, 2020 [id number] Jul 19, 2019 [facility] LITHIUM CARBONATE 300MG CAP Discontinued TAKE 1 CAPSU LE BY MOUTH EVERY MORNING AND TAKE 3 CAPSULES BY MOUTH AT BEDTIME FOR MOOD. MUST MAKE AN APPT OR WILL TAPER AND DISCONTINUE MEDICATIONS 120 Jul 03, 2019 [id number] Jun 03, 2019 [facility] LITHIUM CARBONATE 300MG CAP Discontinued TAKE 1 CAPSU LE BY MOUTH EVERY MORNING AND TAKE 3 CAPSULES BY MOUTH AT BEDTIME FOR MOOD. MUST MAKE AN APPT OR WILL TAPER AND DISCONTINUE MEDICATIONS 120 Mar 23, 2019 [id number] February 21, 2019 [facility] LITHIUM CARBONATE 300MG CAP Discontinued TAKE 1 CAPSU LE BY MOUTH EVERY MORNING AND TAKE 3 CAPSULES BY MOUTH AT BEDTIME FOR MOOD. 120 Dec 18, 2019 [id number] Jan 11, 2019 [facility] LITHIUM CARBONATE 300MG TAB,SA Discontinued TAKE [...] SPLIT, OR CHEW. 234 May 31, 2019 [id number] Apr 01, 2019 [facility] NO KNOWN NON-VA MEDS MISCELLANEOUS Non-VA Non-VA Documented by: MICHELLE BARTHOLOMEW Docume nted at: [facility] NO KNOWN NON-VA MEDS MISCELLANEOUS Non-VA Non-VA Documented by: GALILEA BENÍTEZume nted at: [facility] OXYCODONE HCL 5MG TAB No n-VA TAKE ONE TABLET BY MOUTH EVERY 6 HOURS NEEDED Non-VA Docume nted by: SIMON NEELYume nted at: [facility] QUETIAPINE FUMARATE 100MG TAB Active TAKE ONE-HALF TABL ET BY MOUTH AT BEDTIME 15 Mar 25, 2021 [id number] Mar 24, 2020 ELOISE BAUTISTA [facility] TRAMADOL HCL 50MG TAB No n-VA TAKE ONE TABLET BY MOUTH EVERY 6 HOURS NEEDED Non-VA Docume nted by: SIMON NEELY Docume nted at: [facility]ALINDO [facility] TRAZODONE HCL 100MG TAB Discontinued TAKE FOUR TABLET S BY MOUTH AT BEDTIME FOR MOOD OR SLEEP. 120 February 12, 2021 [id number] Mar 01, 2020 ELOISE BAUTISTA [facility] TRAZODONE HCL 100MG TAB Discontinued TAKE FOUR TABLET S BY MOUTH AT BEDTIME FOR MOOD OR SLEEP. 120 Aug 06, 2020 [id number] February 10, 2020 [facility] TRAZODONE HCL 100MG TAB Discontinued TAKE FOUR TABLET S BY MOUTH AT BEDTIME FOR MOOD OR SLEEP. 120 Jun 03, 2020 [id number] Jul 29, 2019 [facility] TRAZODONE HCL 100MG TAB Discontinued TAKE FOUR TABLET S BY MOUTH AT BEDTIME FOR MOOD OR SLEEP. 120 February 05, 2020 [id number] May 06, 2019 KIMBERLY BANG [facility] TRAZODONE HCL 100MG TAB Discontinued TAKE FOUR TABLET S BY MOUTH AT BEDTIME FOR MOOD OR SLEEP. 120 Sep 14, 2019 [id number] Jan 07, 2019 [facility] TROSPIUM CL 20MG TAB Active TAKE ONE TABLET BY MOUTH TWO TIMES A DAY FOR BLADDER. TAKE ON AN EMPTY STOMACH OR AT LEAST ONE HOUR BEFORE FOOD. PER DR. BUTLER 180 January 23, 2021 [id number] Mar 16, 2020 [facility] TROSPIUM CL 20MG TAB Discontinued TAKE ONE TABLET BY MOUTH TWO TIMES A DAY FOR BLADDER. TAKE ON AN EMPTY STOMACH OR AT LEAST ONE HOUR BEFORE FOOD. PER DR. BUTLER 180 Apr 01, 2020 [id number] Dec 17, 2019 [facility] VENLAFAXINE HCL 75MG 24HR CAP,SA Active TAKE 3 CAPSULES BY MOUTH ONCE A DAY FOR MOOD. TAKE WITH FOOD. 90 February 12, 2021 [id number] Mar 04, 2020 [facility] VENLAFAXINE HCL 75MG 24HR CAP,SA Discontinued TAKE 3 CAPSULES BY MOUTH ONCE A DAY FOR MOOD. TAKE WITH FOOD. Aug 06, 2020 [id number] Jan 05 0 [facility] VENLAFAXINE HCL 75MG 24HR CAP,SA Discontinued TAKE 3 CAPSULES BY MOUTH ONCE A DAY FOR MOOD. TAKE WITH FOOD. Aug 28, 2019 [id number] Aug 01 9 KIMBERLY TARIQ [facility] VENLAFAXINE HCL 75MG 24HR CAP,SA Discontinued TAKE 3 CAPSULES BY MOUTH ONCE A DAY FOR MOOD. TAKE WITH FOOD. February 05, 2020 [id number] Jul 01 9 [facility] Problems (Conditions): All historical and current Section Date Range: From patient's date of to the date document was create d. This section includes a list of Problems (Conditions) know n to [place] for the patient. It includes both active and inacti ve problems (conditions). The data comes from all [place] treatment facilities. Problem Status Problem Code Date of Onset Date of Resolution Comm ent(s) Provider Source Abnormality of Gait (ICD-9-CM 781.2) Active 781.2 [facility] Achilles bursitis or tendinitis (ICD-9-CM 726.71) Active 726.71 [facility] Acquired right hallux valgus Active [id number] [facility] Ankle ulcer due to type 2 diabetes mellitus ([place] [address] [id number]) Active [id number] SIMON NEELY [facility] Bereavement (SNOMED [place] 08973575) Active V62.89 SIMON NEELY [facility] Bilateral plantar fasciitis (SNOMED CT [id number]) Ac tive [id number] [facility] BIPOLAR AFFECTIVE NOS Active 296.7 DEMETRA UREÑA [facility] Bipolar disorder (SNOMED CT 74950488) Active 30944952 [facility]ANG [facility] Bunion Active 727.1 MONICA MADDOX [facility] Carpal Tunnel Syndrome * (ICD-9-CM 354.0) Active 354.0 Oct 16, 2002 Entered By: GALILEA BENÍTEZ Comment: rt GALILEA BENÍTEZ [facility] Cerebral Palsy NEC (ICD-9-CM 343.8) Active 343.8 EDDIESEPIDEH Pal [facility] Depression * (ICD-9-CM 311./300.4) Active 311. SIMON NEELY [facility] Derangement of meniscus Active 717.5 J 2001 Entered By: DEMETRA UREÑA Comment: left knee, arthroscopy 11/23 [facility] Diabetes mellitus (SNOMED CT 05416102) Active 84500668 SIMON NEELY [facility] Difficulty balancing Active 339979037 [facility] Elevated Liver Function Tests (ICD-9-CM 794.8) Active 794.8 SIMON NEELY [facility] Enthesopathy of ankle and tarsus (ICD-9-CM 726.70/726.79) Active 72 6.70 BECCA JONES [facility] Flat foot Active 734. MONICA MADDOX [facility] GERD * (ICD-9-CM 530.81) Active 530.81 SIMON NEELY [facility] Hip Pain (ICD-9-CM 719.45) Active 719.45 SIMON YA [facility] Hyperkeratosis Active 701.1 [facility] Hyperlipidemia * (ICD-9-CM 272.4) Active 272.4 SIMON NEELY [facility] Hypertension * (ICD-9-CM 401.9) Active 401.9 GALILEA BENÍTEZ [facility] Hypertension * (ICD-9-CM 401.9) Active 401.9 [facility] Insomnia * (ICD-9-CM 780.52) Active 780.52 [facility] Joint Pain Forearm Active 719.43 LEONIDAS GUZMAN S [facility] Lower Leg Injury NOS Active 959.7 [facility] Morbid Obesity * (ICD-9-CM 278.01) Active 278.01 [facility] [place] [facility] Obesity * (ICD-9-CM 278.00) Active 278.00 KANCHAN SinaiGALILEA H [facility] Onychomycosis (SNOMED CT 228454191) Active 110.1 SIMON NEELY [facility] Osteoarthosis Shoulder Active 715.91 MEGANVERNELL [facility] Pain in joint involving shoulder region (ICD-9-CM 719.41) Active 71 9.41 [facility] Routine Gynecological examination Active V72.31 SIMON NEELY [facility] Sciatica * (ICD-9-CM 724.3) Active 724.3 [facility] Unspecified chest pain * (ICD-9-CM 786.50) Active 786.50 MARK VIVAS [facility] Unsteady when walking Active [id number] FLORINDAGA SELENE Crowell [facility] Urinary Incontinence * (ICD-9-CM 788.30) Active 788.30 JJ GAYTAN [facility] MUSCLE SPASM Inactive 728.85 May 29, 2007 Sep 02 02 Entered By: TONY BENÍTEZ Comment: shoulders TONY BENÍTEZ [facility] Radiology Reports: +/- 30 days of the encounter No Data Provided for This Section Pathology Reports: +/- 30 days of the encounter No Data Provided for This Section Encounter Notes: All associated encounter notes This section contains the clinical notes associated to the Encounter. Date/Time Encounter Note(s) Provider Source February 21, 2020 01:29 PM ADMINISTRATIVE NOTE: LOCAL TITLE: WI-ADMINISTRATIVE NOTE (BP,O) STANDARD TITLE: ADMINISTRATIVE NOTE DATE OF NOTE: FEBRUARY 21, 2020@13:29 ENTRY DATE: FEBRUARY 21, 2020@13:29:16 AUTHOR: LUCIEN FAUST EXP COSIGNER: URGENCY: STATUS: COMPLETED C-1 Left message for to return call for scheduling follow up [facility] appt with Dr Bautista/per order. L-1 Letter sent. /susie/ LUCIEN FAUST MSA Signed: 02/21/2020 13:30 LUCIEN FAUST [facility]
--- OUTSIDE RECORDS SUMMARY | 2020-03-28 08:19 | XMS REPORT ---
Author Author [facility]gas[facility]ANDRA Organization [facility] Affai Address [address] [place] [address] Phone Unavailable Care Team Providers Care Senior Interactive Developer Name Role Phone FLORINDASIMON PCP Unavailable Insurance [...] PART A Aug 25, 2011 PART A [id number] GADBERRY,CHARLANNE PATIENT MEDICARE (WNR) MEDICARE (M) PART B Aug 25, 2011 PART B [id number] GADBERRY,CHARLANNE PATIENT MEDICARE (WNR) MEDICARE (M) PART A Aug 25, 2011 PART A [id number] GADBERRY,CHARLANNE PATIENT MEDICARE (WNR) MEDICARE (M) PART B Aug 25, 2011 PART B [id number] GADBERRY,CHARLANNE PATIENT MEDICARE (WNR) MEDICARE (M) PART A Aug 25, 2011 PART A [id number] SANDRA MORELOS PATIENT MEDICARE (WNR) MEDICARE (M) PART B Aug 25, 2011 PART B [id number] SANDRA MORELOS PATIENT MEDICARE PART D (WNR) MEDICARE (M) PART D Sep 25, 2012 PART D [id number] SANDRA WHITMAN PATIENT Selected Encounter This section includes the information on record at [place] for the Encounter. Date/Time Encounter Type Encounter Description Reason Provider Source Mar 24, 2020 08:59 AM Outpatient Encounter ADMIN PAT ACTIVTIES (LALI WATT) [facility] IHE Encounter Template Text not used by [place] Assessments - Encounter Diagnoses No Data Provided for This Section Plan of Treatment: Future Appointments (+ 6 months) and Future Tests (+/- 45 day s) The Plan of Treatment section includes future care activities for the patient fr om all [place] treatment facilities. This section includes future appointments and fu ture orders which are active, pending or scheduled. Future Appointments This section includes appointments that were scheduled t o occur 6 months from the date of the Encounter, up to a maximum of 20 appointme nts. The data comes from all [place] treatment facilities. Appointment Date/Time Appointment Type Appointment Facili ty Name Apr 16, 2020 10:00 AM AMBULATORY - PSYCHIATRY [facility] May 12, 2020 10:00 AM AMBULATORY - PSYCHIATRY [facility] Surgical Procedures: All associated to the [...] and tobacco- related health factors from the [place] facility where the Encounter took place. Current Smoking Status This section includes the most current smoking, or tobacco -related health factor, from the [place] facility where the Encounter took place. Date/Time Current Smoking Status Comment Facility Dec 28, 2015 10:28 AM CURRENT NON-SMOKER [facility] Tobacco Use History This section includes a history of the smoking, or tobacco -related health factors, that were collected on or before the date of the Encoun ter. The data comes from the [place] facility where the Encounter took place. Date/Time Smoking Status/Tobacco Use Comment [facility] it Dec 28, 2015 10:28 AM LIFETIME NON-TOBACCO USER [facility] May 14, 2015 10:33 AM CURRENT NON-SMOKER DARION MARTINEZ [facility] May 14, 2015 10:33 AM LIFETIME NON-TOBACCO USER DARION MARTINEZ [facility] Dec 08, 2014 10:25 AM CURRENT NON-SMOKER DARION MARTINEZ [facility] Dec 08, 2014 10:25 AM LIFETIME NON-TOBACCO USER DARION MARTINEZ [facility] Oct 20, 2014 09:33 AM CURRENT NON-SMOKER DARION MARTINEZ [facility] Oct 20, 2014 09:33 AM LIFETIME NON-TOBACCO USER DARION MARTINEZ [facility] Jul 22, 2014 09:41 AM CURRENT NON-SMOKER DARION MARTINEZ [facility] Jul 22, 2014 09:41 AM LIFETIME NON-TOBACCO USER DARION MARTINEZ [facility] February 04, 2014 10:04 AM NON-TOBACCO USER DARION MARTINEZ [facility] Dec 16, 2013 11:26 AM CURRENT NON-SMOKER DARION MARTINEZ [facility] Dec 16, 2013 11:26 AM LIFETIME NON-TOBACCO USER DARION MARTINEZ [facility] Jan 14, 2013 01:14 PM CURRENT NON-SMOKER DARION MARTINEZ [facility] Jan 14, 2013 01:14 PM LIFETIME NON-TOBACCO USER DARION MARTINEZ [facility] February 14, 2012 09:57 AM CURRENT NON-SMOKER DARION MARTINEZ [facility] February 14, 2012 09:57 AM LIFETIME NON-TOBACCO USER DARION MARTINEZ [facility] Mar 14, 2011 01:13 PM CURRENT NON-SMOKER DARION MARTINEZ [facility] Mar 14, 2011 01:13 PM LIFETIME NON-TOBACCO USER DARION MARTINEZ [facility] Apr 15, 2010 09:39 AM CURRENT NON-SMOKER DARION MARTINEZ [facility] Apr 15, 2010 09:39 AM LIFETIME NON-TOBACCO USER DARION MARTINEZ [facility] Mar 09, 2010 02:30 PM CURRENT NON-SMOKER DARION MARTINEZ [facility] Mar 09, 2010 02:30 PM LIFETIME NON-TOBACCO USER DARION MARTINEZ [facility] Nov 06, 2009 10:50 AM CURRENT NON-SMOKER DARION MARTINEZ [facility] Nov 06, 2009 10:50 AM LIFETIME NON-TOBACCO USER DARION MARTINEZ [facility] Advance Directives: All historical and current Section Date Range: From patient's date of to the date document was create d. This section includes ALL of a patient's completed or amen ded [place] Advance and Rescinded Directives. The entries below indicate that a direc tive exists for the patient, but an actual copy is not included with this docume nt. The data comes from all [place] facilities. Date Advance Directives Provider Source Sep 15, 2009 ADVANCE DIRECTIVE DISCUSSION JADE VARMA [place] [facility] Jul 21, 2006 ADVANCE DIRECTIVE [facility] Jul 12, 2006 ADVANCE DIRECTIVE DISCUSSION SAV [facility] Allergies and Adverse Reactions (ADRs): All historical and current Section Date Range: From patient's date of to the date document was create d. This section includes Allergies and Adverse Reactions (ADR s) on record with [facility] for the patient. The data comes from a ll [place] treatment facilities. It does not list Allergies/ADRs that were removed or entered in error. Some allergies/ADRs may be reported in t he Immunization section. Allergen Event Date Event Type Reaction(s) Severity Source ENALAPRIL Aug 22, 2017 Propensity to adverse reactions to drug (diso rder) [facility] ENALAPRIL May 04, 2007 Propensity to adverse reactions to drug ( disorder) Cough [facility] LEVAQUIN Aug 22, 2017 Propensity to adverse reactions to drug (diso rder) [facility] [place] Oct 08, 2015 Propensity to adverse reactions to drug (disorder) Eruption [facility] 15 LISINOPRIL Aug 22, 2017 Propensity to adverse reactions to drug (diso rder) [facility] LISINOPRIL Jan 16, 2007 Propensity to adverse reactions to drug (disorder) Cough [facility] NIACIN Aug 22, 2017 Propensity to adverse reactions to drug (diso rder) [facility] NIACIN Oct 23, 2008 Propensity to adverse reactions to drug ( disorder) Eruption [facility] 15 Medications: VA dispensed (-15 months) and Non-VA Documented (Obtained Outside A) Section Date Range: 1) prescriptions processed by a VA pharmacy in the last 15 m [facility], and 2) all medications recorded in the [place] medical record as "non-VA medic ations". Pharmacy terms refer to [place] pharmacy's work on prescriptions. VA patient s are advised to take their medications as instructed by their health care team. The data comes from all [place] treatment facilities. Glossary of Pharmacy Terms:Active = A prescription that can be filled at the local [place] pharmacy.Active: On Hold = An active prescription that will not be filled until pharmacy resolves the issue.Active: Susp = An active prescription that is not scheduled to be filled yet.Clinic Order = A medication received during a visit to a [place] clinic or emergency department (currently not available).Discontinued [...] may be a prescription from either the [place] or other providers that was filled outside the [place]. Or, it may be an over the [...] BLOOD GLUCOSE TESTING 50 Jun 06, 2020 [id number] February 21, 2020 SIMON NEELY AMLODIPINE BESYLATE 10MG TAB Active TAKE ONE TABLET BY MOUTH EVERY MORNING 90 January 23, 2021 [id number] Jan 23, 2020 SIMON NEELY AMLODIPINE BESYLATE 10MG TAB Discontinued TAKE ONE TA BLET BY MOUTH EVERY MORNING 90 Nov 27, 2019 [id number] Oct 21, 2019 SIMON NEELY ATORVASTATIN CA 20MG TAB Active TAKE ONE-HALF T ABLET BY MOUTH AT BEDTIME FOR CHOLESTEROL - REPORT ANY UNEXPLAINED MUSCLE PAIN/WEAKNESS TO YOUR PROVIDER TAKE IN PLACE OF CRESTOR, VA DOESNT SUPPLY CRESTOR, FOR CHOLESTEROL - REPORT ANY UNEXPLAINED MUSCLE PAIN/WEAKNESS TO YOUR PROVIDER TAKE IN PLACE OF CRESTOR, VA DOESNT SUPPLY CRESTOR, 45 January 23, 2021 [id number] Jan 23, 2020 HARRISON NEELY ATORVASTATIN CA 20MG TAB Discontinued TAKE ONE-HALF T ABLET BY MOUTH AT BEDTIME FOR CHOLESTEROL - REPORT ANY UNEXPLAINED MUSCLE PAIN/WEAKNESS TO YOUR PROVIDER TAKE IN PLACE OF CRESTOR, VA DOESNT SUPPLY CRESTOR, FOR CHOLESTEROL - REPORT ANY UNEXPLAINED MUSCLE PAIN/WEAKNESS TO YOUR PROVIDER TAKE IN PLACE OF CRESTOR, VA DOESNT SUPPLY CRESTOR, 45 Dec 07, 2019 [id number] Mar 01, 2019 HARRISON NEELY CHABAKARI Socrates [facility] BRIEF,SUPER PLUS ABSORB WITH BARRIERS UNDERWEAR X-LARGE ATTE NDS Active USE DIRECTED DIRECTED FOR INCONTINENCE 56 Nov 04, 2020 [id number] Nov 09, 2019 SIMON NEELY [facility] BRIEF,SUPER PLUS ABSORB WITH BARRIERS UNDERWEAR X-LARGE ATTE NDS Discontinued USE DIRECTED DIRECTED FOR INCONTINENCE 56 Apr 01, 2020 [id number] Aug 06, 2019 SIMON NEELY CBREYMUNDO GLIPIZIDE 5MG TAB Active TAKE ONE TABLET BY M OUTH EVERY DAY BEFORE BREAKFAST FOR DIABETES. TAKE 30 MINUTES BEFORE EATING. 90 Apr 22, 2020 [id number] February 12, 2020 SIMON NEELY GLIPIZIDE 5MG TAB Discontinued TAKE ONE TABLET BY M OUTH EVERY DAY BEFORE BREAKFAST FOR DIABETES. TAKE 30 MINUTES BEFORE EATING. 90 Feb 242019 [id number] February 12, 2020 SIMON NEELY [facility] GLIPIZIDE 5MG TAB Discontinued TAKE ONE TABLET BY M OUTH EVERY DAY BEFORE BREAKFAST FOR DIABETES. TAKE 30 MINUTES BEFORE EATING. 90 January [id number] Nov 24, 2019 SIMON NEELY GLIPIZIDE 5MG TAB Discontinued TAKE ONE TABLET BY M OUTH EVERY DAY BEFORE BREAKFAST FOR DIABETES. TAKE 30 MINUTES BEFORE EATING. 90 Nov [id number] Sep 05, 2019 SIMON NEELY CBREYMUNDO LANCET,SOFTCLIX Active USE LANCET BIW FOR TESTING BL OOD GLUCOSE DIRECTED 100 Jun 06, 2020 [id number] Jun 07, 2019 SIMON NEELY C LITHIUM CARBONATE 300MG CAP Active TAKE 1 CAPSU LE BY MOUTH EVERY MORNING AND TAKE 3 CAPSULES BY MOUTH AT BEDTIME FOR MOOD. MUST MAKE AN APPT OR WILL TAPER AND DISCONTINUE MEDICATIONS 120 February 12, 2021 [id number] Mar 04, 2020 ELOISE BAUTISTA [facility] LITHIUM CARBONATE 300MG CAP Discontinued TAKE 1 CAPSU LE BY MOUTH EVERY MORNING AND TAKE 3 CAPSULES BY MOUTH AT BEDTIME FOR MOOD. MUST MAKE AN APPT OR WILL TAPER AND DISCONTINUE MEDICATIONS 120 Aug 06, 2020 [id number] Dec 16, 2019 [facility] LITHIUM CARBONATE 300MG CAP Discontinued TAKE 1 CAPSU LE BY MOUTH EVERY MORNING AND TAKE 3 CAPSULES BY MOUTH AT BEDTIME FOR MOOD. MUST MAKE AN APPT OR WILL TAPER AND DISCONTINUE MEDICATIONS 120 Jun 10, 2020 [id number] Jul 19, 2019 [facility]IM[facility]LY [facility]IQ [facility] LITHIUM CARBONATE 300MG CAP Discontinued TAKE 1 CAPSU LE BY MOUTH EVERY MORNING AND TAKE 3 CAPSULES BY MOUTH AT BEDTIME FOR MOOD. MUST MAKE AN APPT OR WILL TAPER AND DISCONTINUE MEDICATIONS 120 Jul 03, 2019 [id number] Jun 03, 2019 [facility]LY [facility]IQ [facility] LITHIUM CARBONATE 300MG CAP Discontinued TAKE 1 CAPSU LE BY MOUTH EVERY MORNING AND TAKE 3 CAPSULES BY MOUTH AT BEDTIME FOR MOOD. MUST MAKE AN APPT OR WILL TAPER AND DISCONTINUE MEDICATIONS 120 Mar 23, 2019 [id number] February 21, 2019 [facility] LITHIUM CARBONATE 300MG CAP Discontinued TAKE 1 CAPSU LE BY MOUTH EVERY MORNING AND TAKE 3 CAPSULES BY MOUTH AT BEDTIME FOR MOOD. 120 Dec 18, 2019 [id number] Jan 11, 2019 [facility] LITHIUM CARBONATE 300MG TAB,SA Discontinued TAKE ONE [...] SPLIT, OR CHEW. 234 May 31, 2019 [id number] Apr 01, 2019 [facility] NO KNOWN NON-VA MEDS MISCELLANEOUS Non-VA Non-VA Documented by: MICHELLE BARTHOLOMEW Docume nted at: [facility] NO KNOWN NON-VA MEDS MISCELLANEOUS Non-VA Non-VA Documented by: GALILEA BENÍTEZ nted at: [facility] OXYCODONE HCL 5MG TAB No n-VA TAKE ONE TABLET BY MOUTH EVERY 6 HOURS NEEDED Non-VA Docume nted by: SIMON NEELYume nted at: [facility] QUETIAPINE FUMARATE 100MG TAB Active TAKE ONE-HALF TABL ET BY MOUTH AT BEDTIME 15 Mar 25, 2021 [id number] Mar 24, 2020 JASSONALELOISE [facility] TRAMADOL HCL 50MG TAB No n-VA TAKE ONE TABLET BY MOUTH EVERY 6 HOURS NEEDED Non-VA Docume nted by: SIMON NEELY Docume nted at: [facility] TRAZODONE HCL 100MG TAB Discontinued TAKE FOUR TABLET S BY MOUTH AT BEDTIME FOR MOOD OR SLEEP. 120 February 12, 2021 [id number] Mar 01, 2020 ELOISE BAUTISTA [facility] TRAZODONE HCL 100MG TAB Discontinued TAKE FOUR TABLET S BY MOUTH AT BEDTIME FOR MOOD OR SLEEP. 120 Aug 06, 2020 [id number] February 10, 2020 [facility]AS [facility] TRAZODONE HCL 100MG TAB Discontinued TAKE FOUR TABLET S BY MOUTH AT BEDTIME FOR MOOD OR SLEEP. 120 Jun 03, 2020 [id number] Jul 29, 2019 [facility]IM[facility]LY BANG [facility] TRAZODONE HCL 100MG TAB Discontinued TAKE FOUR TABLET S BY MOUTH AT BEDTIME FOR MOOD OR SLEEP. 120 February 05, 2020 [id number] May 06, 2019 KIMBERLY BANG [facility] TRAZODONE HCL 100MG TAB Discontinued TAKE FOUR TABLET S BY MOUTH AT BEDTIME FOR MOOD OR SLEEP. 120 Sep 14, 2019 [id number] Jan 07, 2019 [facility]IM[facility]LY [facility]ANG [facility] TROSPIUM CL 20MG TAB Active TAKE ONE TABLET BY MOUTH TWO TIMES A DAY FOR BLADDER. TAKE ON AN EMPTY STOMACH OR AT LEAST ONE HOUR BEFORE FOOD. PER DR. BUTLER 180 January 23, 2021 [id number] Mar 16, 2020 SIMON NEELY [facility] TROSPIUM CL 20MG TAB Discontinued TAKE ONE TABLET BY MOUTH TWO TIMES A DAY FOR BLADDER. TAKE ON AN EMPTY STOMACH OR AT LEAST ONE HOUR BEFORE FOOD. PER DR. BUTLER 180 Apr 01, 2020 [id number] Dec 17, 2019 SIMON NEELY [facility] VENLAFAXINE HCL 75MG 24HR CAP,SA Active TAKE 3 CAPSULES BY MOUTH ONCE A DAY FOR MOOD. TAKE WITH FOOD. 90 February 12, 2021 [id number] Mar 04, 2020 JASSONFANGArlette [facility] VENLAFAXINE HCL 75MG 24HR CAP,SA Discontinued TAKE 3 CAPSULES BY MOUTH ONCE A DAY FOR MOOD. TAKE WITH FOOD. 90 Aug 06, 2020 [id number] Jan 05 0 KANG ZAYAS [facility] VENLAFAXINE HCL 75MG 24HR CAP,SA Discontinued TAKE 3 CAPSULES BY MOUTH ONCE A DAY FOR MOOD. TAKE WITH FOOD. Aug 28, 2019 [id number] Aug 01 9 KIMBERLY TARIQ [facility] VENLAFAXINE HCL 75MG 24HR CAP,SA Discontinued TAKE 3 CAPSULES BY MOUTH ONCE A DAY FOR MOOD. TAKE WITH FOOD. February 05, 2020 [id number] Jul 01 9 KIMBERLY TARIQ [facility] Problems (Conditions): All historical and current Section Date Range: From patient's date of to the date document was create d. This section includes a list of Problems (Conditions) know n to [facility] for the patient. It includes both active and inacti ve problems (conditions). The data comes from all [place] treatment facilities. Problem Status Problem Code Date of Onset Date of Resolution Comm ent(s) Provider Source Abnormality of Gait (ICD-9-CM 781.2) Active 781.2 GALILEA BENÍTEZ [facility] Achilles bursitis or tendinitis (ICD-9-CM 726.71) Active 726.71 RILEY [facility]VAN [facility] Acquired right hallux valgus Active [id number] RILEY [facility]VAN [facility] Ankle ulcer due to type 2 diabetes mellitus ([place] [address] 135748597) Active [id number] [facility]ELY [facility] Bereavement (SNOMED CT 20271646) Active V62.89 [facility] NEELY [facility] Bilateral plantar fasciitis (SNOMED CT [id number]) Ac tive [id number] RILEY [facility]VAN [facility] BIPOLAR AFFECTIVE NOS Active 296.7 DEMETRA UREÑA [facility] Bipolar disorder (SNOMED CT 62951622) Active 23058066 KIMBERLY BANG [facility] Bunion Active 727.1 MONICA MADDOX [facility] Carpal Tunnel Syndrome * (ICD-9-CM 354.0) Active 354.0 Oct 16, 2002 Entered By: GALILEA BENÍTEZ Comment: rt GALILEA BENÍTEZ [facility] Cerebral Palsy NEC (ICD-9-CM 343.8) Active 343.8 SEPIDEH [facility] Depression * (ICD-9-CM 311./300.4) Active 311. SIMON NEELY [facility] Derangement of meniscus Active 717.5 J an 2001 Entered By: DEMETRA UREÑA Comment: left knee, arthroscopy 11/23 DEMETRA UREÑA [facility] Diabetes mellitus (SNOMED CT 66865630) Active 55519754 SIMON NEELY [facility] Difficulty balancing Active 960821813 HARRISON NEELY [facility] Elevated Liver Function Tests (ICD-9-CM 794.8) Active 794.8 SIMON NEELY [facility] Enthesopathy of ankle and tarsus (ICD-9-CM 726.70/726.79) Active 72 6.70 BECCA JONES [facility] Flat foot Active 734. MONICA MADDOX [facility] GERD * (ICD-9-CM 530.81) Active 530.81 SIMON NEELY [facility] Hip Pain (ICD-9-CM 719.45) Active 719.45 SIMON YA [facility] Hyperkeratosis Active 701.1 MONICA [facility]ADDOX [facility] Hyperlipidemia * (ICD-9-CM 272.4) Active 272.4 SIMON NEELY [facility] Hypertension * (ICD-9-CM 401.9) Active 401.9 GALILEA BENÍTEZ [facility] Hypertension * (ICD-9-CM 401.9) Active 401.9 SIMON NEELY [facility] Insomnia * (ICD-9-CM 780.52) Active 780.52 [facility]ON [facility]OMAS [facility] Joint Pain Forearm Active 719.43 MEGANLEONIDAS YA [facility] Lower Leg Injury NOS Active 959.7 MEGANSHARRI Kaylah S DARION [facility] Morbid Obesity * (ICD-9-CM 278.01) Active 278.01 D[facility]ION [facility] [facility] Obesity * (ICD-9-CM 278.00) Active 278.00 KANCHAN GALILEA Rawls [facility] Onychomycosis (SNOMED CT 219616375) Active 110.1 [facility] Osteoarthosis Shoulder Active 715.91 MEGAN,SU HUSSEIN Magdalena [facility] Pain in joint involving shoulder region (ICD-9-CM 719.41) Active [address] [facility] Routine Gynecological examination Active V72.[address] [facility] Sciatica * (ICD-9-CM 724.3) Active 724.[address] [facility] Unspecified chest pain * (ICD-9-CM 786.50) Active 786.50 MARK VIVAS [facility] Unsteady when walking Active [id number] HARRISON NEELY [facility] Urinary Incontinence * (ICD-9-CM 788.30) Active 788.30 JJ GAYTAN [facility] MUSCLE SPASM Inactive 728.85 May 29, 2007 Sep 02 Entered By: TONY BENÍTEZ Comment: shoulders TONY BENÍTEZ [facility] Radiology Reports: +/- 30 days of the encounter No Data Provided for This Section Pathology Reports: +/- 30 days of the encounter No Data Provided for This Section Encounter Notes: All associated encounter notes This section contains the clinical notes associated to the Encounter. Date/Time Encounter Note(s) Provider Source Mar 24, 2020 08:59 AM ADMINISTRATIVE NOTE: LOCAL TITLE: WI-ADMINISTRATIVE NOTE (BP,O) STANDARD TITLE: ADMINISTRATIVE NOTE DATE OF NOTE: MAR 24, 2020@08:59 ENTRY DATE: MAR 24, 2020@08:59:57 AUTHOR: BRANDEN VIRK EXP COSIGNER: URGENCY: STATUS: COMPLETED [place] request placed per Dr. Bautista. History of Request ID#: [id number] Service: Behavioral Health Service Title of request: please over night per Dr. Bautista Timestamp Action Taken March 24, 2020. 8:57 AM New Request Opened by Branden Virk March 24, 2020. 8:59 AM Request Submitted: Submit by Branden Virk /susie/ BRANDEN VIRK, RN, BSN neuro urologist Signed: 03/24/2020 09:00 [facility]IRK [facility]
--- OUTSIDE RECORDS SUMMARY | 2020-03-28 08:19 | XMS REPORT ---
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 Role Phone FLORINDASIMON PCP Unavailable Insurance [...] PART A Aug 25, 2011 PART A [id number] GADBERRY,CHARLANNE PATIENT MEDICARE (WNR) MEDICARE (M) PART B Aug 25, 2011 PART B [id number] GADBERRY,CHARLANNE PATIENT MEDICARE (WNR) MEDICARE (M) PART A Aug 25, 2011 PART A [id number] GADBERRY,CHARLANNE PATIENT MEDICARE (WNR) MEDICARE (M) PART B Aug 25, 2011 PART B [id number] GADBERRY,CHARLANNE PATIENT MEDICARE (WNR) MEDICARE (M) PART A Aug 25, 2011 PART A [id number] SANDRA MORELOS PATIENT MEDICARE (WNR) MEDICARE (M) PART B Aug 25, 2011 PART B [id number] SANDRA MORELOS PATIENT MEDICARE PART D (WNR) MEDICARE (M) PART D Sep 25, 2012 PART D [id number] SANDRA WHITMAN PATIENT Selected Encounter This section includes the information on record at [place] for the Encounter. Date/Time Encounter Type Encounter Description Reason Provider Source Mar 16, 2020 08:38 AM Outpatient Encounter ADMIN PAT ACTIVTIES (LALI WATT) [facility] IHE Encounter Template Text not used by [place] Assessments - Encounter Diagnoses No Data Provided for This Section Plan of Treatment: Future Appointments (+ 6 months) and Future Tests (+/- 45 day s) The Plan of Treatment section includes future care activities for the patient fr om all [place] treatment facilities. This section includes future appointments and fu ture orders which are active, pending or scheduled. Future Appointments This section includes appointments that were scheduled t o occur 6 months from the date of the Encounter, up to a maximum of 20 appointme nts. The data comes from all [place] treatment facilities. Appointment Date/Time Appointment Type Appointment Facili ty Name Mar 24, 2020 08:30 AM AMBULATORY - PSYCHIATRY [facility] Apr 16, 2020 10:00 AM AMBULATORY - PSYCHIATRY [facility] May 12, 2020 10:00 AM AMBULATORY - PSYCHIATRY [facility] Surgical Procedures: All associated to the encounter [...] and tobacco- related health factors from the [place] facility where the Encounter took place. Current Smoking Status This section includes the most current smoking, or tobacco -related health factor, from the [place] facility where the Encounter took place. Date/Time Current Smoking Status Comment Facility Dec 28, 2015 10:28 AM CURRENT NON-SMOKER [facility] Tobacco Use History This section includes a history of the smoking, or tobacco -related health factors, that were collected on or before the date of the Encoun ter. The data comes from the [place] facility where the Encounter took place. Date/Time Smoking Status/Tobacco Use Comment Facil ity Dec 28, 2015 10:28 AM LIFETIME NON-TOBACCO USER DARION MARTINEZ [facility] May 14, 2015 10:33 AM CURRENT NON-SMOKER DARION MARTINEZ [facility] May 14, 2015 10:33 AM LIFETIME NON-TOBACCO USER DARION MARTINEZ [facility] Dec 08, 2014 10:25 AM CURRENT NON-SMOKER DARION MARTINEZ [facility] Dec 08, 2014 10:25 AM LIFETIME NON-TOBACCO USER DARION MARTINEZ [facility] Oct 20, 2014 09:33 AM CURRENT NON-SMOKER DARION MARTINEZ [facility] Oct 20, 2014 09:33 AM LIFETIME NON-TOBACCO USER DARION MARTINEZ [facility] Jul 22, 2014 09:41 AM CURRENT NON-SMOKER DARION MARTINEZ [facility] Jul 22, 2014 09:41 AM LIFETIME NON-TOBACCO USER DARION MARTINEZ [facility] February 04, 2014 10:04 AM NON-TOBACCO USER DARION MARTINEZ [facility] Dec 16, 2013 11:26 AM CURRENT NON-SMOKER DARION MARTINEZ [facility] Dec 16, 2013 11:26 AM LIFETIME NON-TOBACCO USER DARION MARTINEZ [facility] Jan 14, 2013 01:14 PM CURRENT NON-SMOKER DARION MARTINEZ [facility] Jan 14, 2013 01:14 PM LIFETIME NON-TOBACCO USER DARION MARTINEZ [facility] February 14, 2012 09:57 AM CURRENT [facility]SMOKER [facility] February 14, 2012 09:57 AM LIFETIME NON-TOBACCO USER DARION MARTINEZ [facility] Mar 14, 2011 01:13 PM CURRENT NON-SMOKER DARION MARTINEZ [facility] Mar 14, 2011 01:13 PM LIFETIME NON-TOBACCO USER [facility] Apr 15, 2010 09:39 AM CURRENT [facility]MOKER [facility] Apr 15, 2010 09:39 AM LIFETIME NON-TOBACCO USER DARION MARTINEZ [facility] Mar 09, 2010 02:30 PM CURRENT NON-SMOKER DARION MARTINEZ [facility] Mar 09, 2010 02:30 PM LIFETIME NON-TOBACCO USER [facility] Nov 06, 2009 10:50 AM CURRENT NON-SMOKER DARION MARTINEZ [facility] Nov 06, 2009 10:50 AM LIFETIME NON-TOBACCO USER [facility] Advance Directives: All historical and current Section Date Range: From patient's date of to the date document was create d. This section includes ALL of a patient's completed or amen ded [place] Advance and Rescinded Directives. The entries below indicate that a direc tive exists for the patient, but an actual copy is not included with this docume nt. The data comes from all [place] facilities. Date Advance Directives Provider Source Sep 15, 2009 ADVANCE DIRECTIVE DISCUSSION JADE VARMA [facility] Jul 21, 2006 ADVANCE DIRECTIVE [facility] Jul 12, 2006 ADVANCE DIRECTIVE DISCUSSION SAV [facility] Allergies and Adverse Reactions (ADRs): All historical and current Section Date Range: From patient's date of to the date document was create d. This section includes Allergies and Adverse Reactions (ADR s) on record with [place] for the patient. The data comes from a ll [place] treatment facilities. It does not list Allergies/ADRs that were removed or entered in error. Some allergies/ADRs may be reported in t he Immunization section. Allergen Event Date Event Type Reaction(s) Severity Source ENALAPRIL Aug 22, 2017 Propensity to adverse reactions to drug (diso rder) [facility] ENALAPRIL May 04, 2007 Propensity to adverse reactions to drug ( disorder) Cough [facility] LEVAQUIN Aug 22, 2017 Propensity to adverse reactions to drug (diso rder) [facility] LEVAQUIN Oct 08, 2015 Propensity to adverse reactions to drug (disorder) Eruption [facility] 15 LISINOPRIL Aug 22, 2017 Propensity to adverse reactions to drug (diso rder) [facility] LISINOPRIL Jan 16, 2007 Propensity to adverse reactions to drug (disorder) Cough [facility] NIACIN Aug 22, 2017 Propensity to adverse reactions to drug (diso rder) [facility] NIACIN Oct 23, 2008 Propensity to adverse reactions to drug ( disorder) Eruption [facility] 15 Medications: VA dispensed (-15 months) and Non-VA Documented (Obtained Outside A) Section Date Range: 1) prescriptions processed by a [place] pharmacy in the last 15 m [facility], and 2) all medications recorded in the [place] medical record as "non-VA medic ations". Pharmacy terms refer to [place] pharmacy's work on prescriptions. VA patient s are advised to take their medications as instructed by their health care team. The data comes from all [place] treatment facilities. Glossary of Pharmacy Terms:Active = A prescription that can be filled at the local [place] pharmacy.Active: On Hold = An active prescription that will not be filled until pharmacy resolves the issue.Active: Susp = An active prescription that is not scheduled to be filled yet.Clinic Order = A medication received during a visit to a [place] clinic or emergency department (currently not available).Discontinued [...] may be a prescription from either the [place] or other providers that was filled outside the [place]. Or, it may be an over the [...] BLOOD GLUCOSE TESTING 50 Jun 06, 2020 [id number] February 21, 2020 SIMON NEELY AMLODIPINE BESYLATE 10MG TAB Active TAKE ONE TABLET BY MOUTH EVERY MORNING 90 January 23, 2021 [id number] Jan 23, 2020 SIMON NEELY AMLODIPINE BESYLATE 10MG TAB Discontinued TAKE ONE TA BLET BY MOUTH EVERY MORNING 90 Nov 27, 2019 [id number] Oct 21, 2019 SIMON NEELY ATORVASTATIN CA 20MG TAB Active TAKE ONE-HALF T ABLET BY MOUTH AT BEDTIME FOR CHOLESTEROL - REPORT ANY UNEXPLAINED MUSCLE PAIN/WEAKNESS TO YOUR PROVIDER TAKE IN PLACE OF CRESTOR, VA DOESNT SUPPLY CRESTOR, FOR CHOLESTEROL - REPORT ANY UNEXPLAINED MUSCLE PAIN/WEAKNESS TO YOUR PROVIDER TAKE IN PLACE OF CRESTOR, VA DOESNT SUPPLY CRESTOR, 45 January 23, 2021 [id number] Jan 23, 2020 HARRISON NEELY ATORVASTATIN CA 20MG TAB Discontinued TAKE ONE-HALF T ABLET BY MOUTH AT BEDTIME FOR CHOLESTEROL - REPORT ANY UNEXPLAINED MUSCLE PAIN/WEAKNESS TO YOUR PROVIDER TAKE IN PLACE OF CRESTOR, [facility] DOESNT SUPPLY CRESTOR, FOR CHOLESTEROL - REPORT ANY UNEXPLAINED MUSCLE PAIN/WEAKNESS TO YOUR PROVIDER TAKE IN PLACE OF CRESTOR, [facility] DOESNT SUPPLY CRESTOR, 45 Dec 07, 2019 [id number] Mar 01, 2019 HARRISON NEELY [facility] BRIEF,SUPER PLUS ABSORB WITH BARRIERS UNDERWEAR X-LARGE ATTE NDS Active USE DIRECTED DIRECTED FOR INCONTINENCE 56 Nov 04, 2020 [id number] Nov 09, 2019 SIMON NEELY BRIEF,SUPER PLUS ABSORB WITH BARRIERS UNDERWEAR X-LARGE ATTE NDS Discontinued USE DIRECTED DIRECTED FOR INCONTINENCE 56 Apr 01, 2020 [id number] Aug 06, 2019 SIMON NEELY GLIPIZIDE 5MG TAB Active TAKE ONE TABLET BY M OUTH EVERY DAY BEFORE BREAKFAST FOR DIABETES. TAKE 30 MINUTES BEFORE EATING. 90 Apr 22, 2020 [id number] February 12, 2020 SIMON NEELY GLIPIZIDE 5MG TAB Discontinued TAKE ONE TABLET BY M OUTH EVERY DAY BEFORE BREAKFAST FOR DIABETES. TAKE 30 MINUTES BEFORE EATING. 90 Feb [id number] February 12, 2020 SIMON NEELY GLIPIZIDE 5MG TAB Discontinued TAKE ONE TABLET BY M OUTH EVERY DAY BEFORE BREAKFAST FOR DIABETES. TAKE 30 MINUTES BEFORE EATING. 90 January [id number] Nov 24, 2019 SIMON NEELY GLIPIZIDE 5MG TAB Discontinued TAKE ONE TABLET BY M OUTH EVERY DAY BEFORE BREAKFAST FOR DIABETES. TAKE 30 MINUTES BEFORE EATING. 90 Nov [id number] Sep 05, 2019 SIMON NEELY LANCET,SOFTCLIX Active USE LANCET BIW FOR TESTING BL OOD GLUCOSE DIRECTED 100 Jun 06, 2020 [id number] Jun 07, 2019 SIMON NEELY C LITHIUM CARBONATE 300MG CAP Active TAKE 1 CAPSU LE BY MOUTH EVERY MORNING AND TAKE 3 CAPSULES BY MOUTH AT BEDTIME FOR MOOD. MUST MAKE AN APPT OR WILL TAPER AND DISCONTINUE MEDICATIONS 120 February 12, 2021 [id number] Mar 04, 2020 ELOISE BAUTISTA [facility] LITHIUM CARBONATE 300MG CAP Discontinued TAKE 1 CAPSU LE BY MOUTH EVERY MORNING AND TAKE 3 CAPSULES BY MOUTH AT BEDTIME FOR MOOD. MUST MAKE AN APPT OR WILL TAPER AND DISCONTINUE MEDICATIONS 120 Aug 06, 2020 [id number] Dec 16, 2019 [facility] LITHIUM CARBONATE 300MG CAP Discontinued TAKE 1 CAPSU LE BY MOUTH EVERY MORNING AND TAKE 3 CAPSULES BY MOUTH AT BEDTIME FOR MOOD. MUST MAKE AN APPT OR WILL TAPER AND DISCONTINUE MEDICATIONS 120 Jun 10, 2020 [id number] Jul 19, 2019 [facility]IM[facility]LY [facility]IQ [facility] LITHIUM CARBONATE 300MG CAP Discontinued TAKE 1 CAPSU LE BY MOUTH EVERY MORNING AND TAKE 3 CAPSULES BY MOUTH AT BEDTIME FOR MOOD. MUST MAKE AN APPT OR WILL TAPER AND DISCONTINUE MEDICATIONS 120 Jul 03, 2019 [id number] Jun 03, 2019 [facility]LY TARIQ [facility] LITHIUM CARBONATE 300MG CAP Discontinued TAKE 1 CAPSU LE BY MOUTH EVERY MORNING AND TAKE 3 CAPSULES BY MOUTH AT BEDTIME FOR MOOD. MUST MAKE AN APPT OR WILL TAPER AND DISCONTINUE MEDICATIONS 120 Mar 23, 2019 [id number] February 21, 2019 [facility] LITHIUM CARBONATE 300MG CAP Discontinued TAKE 1 CAPSU LE BY MOUTH EVERY MORNING AND TAKE 3 CAPSULES BY MOUTH AT BEDTIME FOR MOOD. 120 Dec 18, 2019 [id number] Jan 11, 2019 [facility] LITHIUM CARBONATE 300MG TAB,SA Discontinued TAKE ONE [...] SPLIT, OR CHEW. 234 May 31, 2019 [id number] Apr 01, 2019 [facility] NO KNOWN NON-VA MEDS MISCELLANEOUS Non-VA Non-VA Documented by: MICHELLE BARTHOLOMEW Docume nted at: [facility] NO KNOWN NON-VA MEDS MISCELLANEOUS Non-VA Non-VA Documented by: GALILEA BENÍTEZume nted at: [facility] OXYCODONE HCL 5MG TAB No n-VA TAKE ONE TABLET BY MOUTH EVERY 6 HOURS NEEDED Non-VA Docume nted by: SIMON NEELYume nted at: [facility] QUETIAPINE FUMARATE 100MG TAB Active TAKE ONE-HALF TABL ET BY MOUTH AT BEDTIME 15 Mar 25, 2021 [id number] Mar 24, 2020 ELOISE BAUTISTA [facility] TRAMADOL HCL 50MG TAB No n-VA TAKE ONE TABLET BY MOUTH EVERY 6 HOURS NEEDED Non-VA Docume nted by: SIMON NEELY Docume nted at: GALINDO [facility] TRAZODONE HCL 100MG TAB Discontinued TAKE FOUR TABLET S BY MOUTH AT BEDTIME FOR MOOD OR SLEEP. 120 February 12, 2021 [id number] Mar 01, 2020 ELOISE BAUTISTA [facility] TRAZODONE HCL 100MG TAB Discontinued TAKE FOUR TABLET S BY MOUTH AT BEDTIME FOR MOOD OR SLEEP. 120 Aug 06, 2020 [id number] February 10, 2020 [facility] TRAZODONE HCL 100MG TAB Discontinued TAKE FOUR TABLET S BY MOUTH AT BEDTIME FOR MOOD OR SLEEP. 120 Jun 03, 2020 [id number] Jul 29, 2019 [facility]LY BANG [facility] TRAZODONE HCL 100MG TAB Discontinued TAKE FOUR TABLET S BY MOUTH AT BEDTIME FOR MOOD OR SLEEP. 120 February 05, 2020 [id number] May 06, 2019 KIMBERLY BANG [facility] TRAZODONE HCL 100MG TAB Discontinued TAKE FOUR TABLET S BY MOUTH AT BEDTIME FOR MOOD OR SLEEP. 120 Sep 14, 2019 [id number] Jan 07, 2019 [facility]LY BANG [facility] TROSPIUM CL 20MG TAB Active TAKE ONE TABLET BY MOUTH TWO TIMES A DAY FOR BLADDER. TAKE ON AN EMPTY STOMACH OR AT LEAST ONE HOUR BEFORE FOOD. PER DR. BUTLER 180 January 23, 2021 [id number] Mar 16, 2020 SIMON NEELY [facility] TROSPIUM CL 20MG TAB Discontinued TAKE ONE TABLET BY MOUTH TWO TIMES A DAY FOR BLADDER. TAKE ON AN EMPTY STOMACH OR AT LEAST ONE HOUR BEFORE FOOD. PER DR. BUTLER 180 Apr 01, 2020 [id number] Dec 17, 2019 SIMON NEELY [facility] VENLAFAXINE HCL 75MG 24HR CAP,SA Active TAKE 3 CAPSULES BY MOUTH ONCE A DAY FOR MOOD. TAKE WITH FOOD. 90 February 12, 2021 [id number] Mar 04, 2020 Arlette [facility]ISTA [facility] VENLAFAXINE HCL 75MG 24HR CAP,SA Discontinued TAKE 3 CAPSULES BY MOUTH ONCE A DAY FOR MOOD. TAKE WITH FOOD. Aug 06, 2020 [id number] Jan 05 0 KANG [facility]AS [facility] VENLAFAXINE HCL 75MG 24HR CAP,SA Discontinued TAKE 3 CAPSULES BY MOUTH ONCE A DAY FOR MOOD. TAKE WITH FOOD. Aug 28, 2019 [id number] Aug 01 [address] [facility] VENLAFAXINE HCL 75MG 24HR CAP,SA Discontinued TAKE 3 CAPSULES BY MOUTH ONCE A DAY FOR MOOD. TAKE WITH FOOD. February 05, 2020 [id number] Jul 01 9 [facility] Problems (Conditions): All historical and current Section Date Range: From patient's date of to the date document was create d. This section includes a list of Problems (Conditions) know n to [place] for the patient. It includes both active and inacti ve problems (conditions). The data comes from all [place] treatment facilities. Problem Status Problem Code Date of Onset Date of Resolution Comm ent(s) Provider Source Abnormality of Gait (ICD-9-CM 781.2) Active 781.2 [facility] Achilles bursitis or tendinitis (ICD-9-CM 726.71) Active 726.71 RILEY [facility]ALVAN [facility] Acquired right hallux valgus Active [id number] RILEY [facility]VAN [facility] Ankle ulcer due to type 2 diabetes mellitus ([place] [address] [id number]) Active [id number] SIMON NEELY [facility] Bereavement (SNOMED CT 33990383) Active V62.89 SIMON NEELY [facility] Bilateral plantar fasciitis (SNOMED CT [id number]) Ac tive [id number] RILEY [facility]VAN [facility] BIPOLAR AFFECTIVE NOS Active 296.7 DEMETRA UREÑA [facility] Bipolar disorder (SNOMED CT 19332243) Active 46393730 KIMBERLY BANG [facility] Bunion Active 727.1 MONICA MADDOX [facility] Carpal Tunnel Syndrome * (ICD-9-CM 354.0) Active 354.0 Oct 16, 2002 Entered By: GALILEA BENÍTEZ Comment: rt GALILEA BENÍTEZ [facility] Cerebral Palsy NEC (ICD-9-CM 343.8) Active 343.8 EDDIESEPIDEH Pal [facility] Depression * (ICD-9-CM 311./300.4) Active 311. SIMON NEELY [facility] Derangement of meniscus Active 717.5 J 2001 Entered By: DEMETRA UREÑA Comment: left knee, arthroscopy 11/23 [facility] Diabetes mellitus (SNOMED CT 91261103) Active 27902361 SIMON NEELY [facility] Difficulty balancing Active 621940214 [facility] Elevated Liver Function Tests (ICD-9-CM 794.8) Active 794.8 SIMON NEELY [facility] Enthesopathy of ankle and tarsus (ICD-9-CM 726.70/726.79) Active 72 6.70 BECCA JONES [facility] Flat foot Active 734. MONICA MADDOX [facility] GERD * (ICD-9-CM 530.81) Active 530.81 SIMON NEELY [facility] Hip Pain (ICD-9-CM 719.45) Active 719.45 SIMON YA [facility] Hyperkeratosis Active 701.1 MONICA [facility]ADDOX [facility] Hyperlipidemia * (ICD-9-CM 272.4) Active 272.4 SIMON NEELY [facility] Hypertension * (ICD-9-CM 401.9) Active 401.9 GALILEA BENÍTEZ [facility] Hypertension * (ICD-9-CM 401.9) Active 401.9 [facility] Insomnia * (ICD-9-CM 780.52) Active 780.52 SIMON THOMAS [facility] Joint Pain Forearm Active 719.43 LEONIDAS GUZMAN S [facility]ION [facility] Lower Leg Injury NOS Active 959.7 [facility] Morbid Obesity * (ICD-9-CM 278.01) Active 278.01 [facility]ION [facility] Obesity * (ICD-9-CM 278.00) Active 278.00 KANCHAN SinaiGALILEA H [facility] Onychomycosis (SNOMED CT 743504511) Active 110.[address] [facility] Osteoarthosis Shoulder Active 715.91 MEGANVERNELL DARION Cid [facility] Pain in joint involving shoulder region (ICD-9-CM 719.41) Active 71 9.41 [facility] Routine Gynecological examination Active V72.31 SIMON NEELY [facility] Sciatica * (ICD-9-CM 724.3) Active 724.3 [facility] Unspecified chest pain * (ICD-9-CM 786.50) Active 786.50 MARK VIVAS [facility] Unsteady when walking Active [id number] FLORINDAMS SELENE Crowell [facility] Urinary Incontinence * (ICD-9-CM 788.30) Active 788.30 JJ GAYTAN [facility] MUSCLE SPASM Inactive 728.85 May 29, 2007 Sep 02, 02 Entered By: TONY BENÍTEZ Comment: shoulders TONY BENÍTEZ [facility] Radiology Reports: +/- 30 days of the encounter No Data Provided for This Section Pathology Reports: +/- 30 days of the encounter No Data Provided for This Section Encounter Notes: All associated encounter notes This section contains the clinical notes associated to the Encounter. Date/Time Encounter Note(s) Provider Source Mar 16, 2020 08:38 AM ADMINISTRATIVE NOTE: LOCAL TITLE: WI-ADMINISTRATIVE NOTE (BP,O) STANDARD TITLE: ADMINISTRATIVE NOTE DATE OF NOTE: MAR 16, 2020@08:38 ENTRY DATE: MAR 16, 2020@08:38:42 AUTHOR: LUCIEN FAUST COSIGNER: URGENCY: STATUS: COMPLETED Left message for to return call for rescheduling [facility] appt with Dr Bautista from 05/15/20 due to provider out. Letter sent. /susie/ LUCIEN FAUST MSA Signed: 03/16/2020 08:39 LUCIEN FAUST [facility]
--- OUTSIDE RECORDS SUMMARY | 2020-03-28 08:19 | XMS REPORT | Encounter Summary ---
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 Worker Name Role Phone FLORINDA SIMON PCP Unavailable [...] PART A Aug 25, 2011 PART A [id number] [phone] GADBERRY,CHARLANNE PATIENT MEDICARE (WNR) MEDICARE (M) PART B Aug 25, 2011 PART B [id number] [phone] GADBERRY,CHARLANNE PATIENT MEDICARE (WNR) MEDICARE (M) PART A Aug 25, 2011 PART A [id number] GADBERRY,CHARLANNE PATIENT MEDICARE (WNR) MEDICARE (M) PART B Aug 25, 2011 PART B [id number] GADBERRY,CHARLANNE PATIENT MEDICARE (WNR) MEDICARE (M) PART A Aug 25, 2011 PART A [id number] SANDRA MORELOS PATIENT MEDICARE (WNR) MEDICARE (M) PART B Aug 25, 2011 PART B [id number] SANDRA MORELOS PATIENT MEDICARE PART D (WNR) MEDICARE (M) PART D Sep 25, 2012 PART D [id number] SANDRA WHITMAN PATIENT Selected Encounter This section includes the information on record at [place] for the Encounter. Date/Time Encounter Type Encounter Description Reason Provider Source Mar 24, 2020 08:30 AM OFFICE/OUTPATIENT VISIT EST [facility] - IND ICD-10-CM F31.32 Bipolar disorder, current episode depressed, moderate with Provider Comments: Bipolar disorder ([facility] [id number]) [facility] IHE Encounter Template Text not used by [place] Assessments - Encounter Diagnoses This section includes the primary and secondary diag noses documented for the Encounter. Date/Time Primary/Secondary Diagnosis Diagnosis Name Provider Source Mar 24, 2020 08:59 AM PRIMARY Bipolar disorder, current episode depressed, moderate LUCIEN FAUST [facility] Plan of Treatment: Future Appointments (+ 6 months) and Future Tests (+/- 45 day s) The Plan of Treatment section includes future care activities for the patient fr om all [place] treatment facilities. This section includes future appointments and fu ture orders which are active, pending or scheduled. Future Appointments This section includes appointments that were scheduled t o occur 6 months from the date of the Encounter, up to a maximum of 20 appointme nts. The data comes from all [place] treatment facilities. Appointment Date/Time Appointment Type Appointment Facili ty Name Apr 16, 2020 10:00 AM AMBULATORY - PSYCHIATRY DARION Cid [facility] May 12, 2020 10:00 AM [facility] Surgical Procedures: All associated to the [...] and tobacco- related health factors from the [place] facility where the Encounter took place. Current Smoking Status This section includes the most current smoking, or tobacco -related health factor, from the [place] facility where the Encounter took place. Date/Time Current Smoking Status Comment Facility Dec 28, 2015 10:28 AM CURRENT NON-SMOKER DARION Cid [facility] Tobacco Use History This section includes a history of the smoking, or tobacco -related health factors, that were collected on or before the date of the Encoun ter. The data comes from the [place] facility where the Encounter took place. Date/Time Smoking Status/Tobacco Use Comment Addy milesy Dec 28, 2015 10:28 AM LIFETIME NON-TOBACCO USER DARION MARTINEZ [facility] May 14, 2015 10:33 AM CURRENT NON-SMOKER DARION Cid [facility] May 14, 2015 10:33 AM LIFETIME NON-TOBACCO USER DARION Jose Roberto [facility] Dec 08, 2014 10:25 AM CURRENT NON-SMOKER DARION Jose Roberto [facility] Dec 08, 2014 10:25 AM LIFETIME NON-TOBACCO USER DARION Jose Roberto [facility] Oct 20, 2014 09:33 AM CURRENT NON-SMOKER DARION Jose Roberto [facility] Oct 20, 2014 09:33 AM LIFETIME NON-TOBACCO USER DARION Jose Roberto [facility] Jul 22, 2014 09:41 AM CURRENT NON-SMOKER DARION Jose Roberto [facility] Jul 22, 2014 09:41 AM LIFETIME NON-TOBACCO USER DARION Cid [facility] February 04, 2014 10:04 AM NON-TOBACCO USER DARION MARTINEZ [facility] Dec 16, 2013 11:26 AM CURRENT NON-SMOKER DARION Jose Roberto [facility] Dec 16, 2013 11:26 AM LIFETIME NON-TOBACCO USER DARION Cid [facility] Jan 14, 2013 01:14 PM CURRENT NON-SMOKER DARION Cid [facility] Jan 14, 2013 01:14 PM LIFETIME NON-TOBACCO USER DARION Cid [facility] February 14, 2012 09:57 AM CURRENT NON-SMOKER DARION Cid [facility] February 14, 2012 09:57 AM LIFETIME NON-TOBACCO USER DARION Cid [facility] Mar 14, 2011 01:13 PM CURRENT [facility]SMOKER [facility] Mar 14, 2011 01:13 PM LIFETIME NON-TOBACCO USER DARION Cid [facility] Apr 15, 2010 09:39 AM CURRENT NON-SMOKER DARION Cid [facility] Apr 15, 2010 09:39 AM LIFETIME NON-TOBACCO USER DARION Cid [facility] Mar 09, 2010 02:30 PM CURRENT NON-SMOKER DARION Cid [facility] Mar 09, 2010 02:30 PM LIFETIME NON-TOBACCO USER DARINO Cid [facility] Nov 06, 2009 10:50 AM CURRENT NON-SMOKER DARION MARTINEZ [facility] Nov 06, 2009 10:50 AM LIFETIME NON-TOBACCO USER DARION MARTINEZ [facility] Advance Directives: All historical and current [...] docume nt. The data comes from all [place] facilities. Date Advance Directives Provider Source Sep 15, 2009 ADVANCE DIRECTIVE DISCUSSION JADE VARMA [facility] Jul 21, 2006 ADVANCE DIRECTIVE [facility] Jul 12, 2006 ADVANCE DIRECTIVE DISCUSSION SAV [facility] Allergies and Adverse Reactions (ADRs): All historical and current Section Date Range: From patient's date of to the date document was create d. This section includes Allergies and Adverse Reactions (ADR s) on record with [facility] for the patient. The data comes from a ll [place] treatment facilities. It does not list Allergies/ADRs that were removed or entered in error. Some allergies/ADRs may be reported in t he Immunization section. Allergen Event Date Event Type Reaction(s) Severity Source ENALAPRIL Aug 22, 2017 Propensity to adverse reactions to drug (diso rder) [facility] [place]NAL[facility] May 04, 2007 Propensity to adverse reactions to drug ( disorder) Cough [facility] LEVAQUIN Aug 22, 2017 Propensity to adverse reactions to drug (diso rder) [facility] LEV[place]QU[place] Oct 08, 2015 Propensity to adverse reactions to drug (disorder) Eruption [facility] 15 LISINOPRIL Aug 22, 2017 Propensity to adverse reactions to drug (diso rder) [facility] [place] Jan 16, 2007 Propensity to adverse reactions to drug (disorder) Cough [facility] NIACIN Aug 22, 2017 Propensity to adverse reactions to drug (diso rder) [facility] NIACIN Oct 23, 2008 Propensity to adverse reactions to drug ( disorder) Eruption [facility] 15 Medications: VA dispensed (-15 months) and Non-VA Documented (Obtained Outside V A) Section Date Range: 1) prescriptions processed by a [place] pharmacy in the last 15 m [facility], and 2) all medications recorded in the [place] medical record as "non-VA medic ations". Pharmacy terms refer to VA pharmacy's work on prescriptions. VA patient s are advised to take their medications as instructed by their health care team. The data comes from all [place] treatment facilities. Glossary of Pharmacy Terms:Active = A prescription that can be filled at the local VA pharmacy.Active: On Hold = An active prescription that will not be filled until pharmacy resolves the issue.Active: Susp = An active prescription that is not scheduled to be filled yet.Clinic Order = A medication received during a visit to a [place] clinic or emergency department (currently not available).Discontinued [...] may be a prescription from either the [place] or other providers that was filled outside the [place]. Or, it may be an over the [...] BLOOD GLUCOSE TESTING 50 Jun 06, 2020 [id number] February 21, 2020 SIMON NEELY AMLODIPINE BESYLATE 10MG TAB Active TAKE ONE TABLET BY MOUTH EVERY MORNING 90 January 23, 2021 [id number] Jan 23, 2020 SIMON NEELY AMLODIPINE BESYLATE 10MG TAB Discontinued TAKE ONE TA BLET BY MOUTH EVERY MORNING 90 Nov 27, 2019 [id number] Oct 21, 2019 SIMON NEELY ATORVASTATIN CA 20MG TAB Active TAKE ONE-HALF T ABLET BY MOUTH AT BEDTIME FOR CHOLESTEROL - REPORT ANY UNEXPLAINED MUSCLE PAIN/WEAKNESS TO YOUR PROVIDER TAKE IN PLACE OF CRESTOR, VA DOESNT SUPPLY CRESTOR, FOR CHOLESTEROL - REPORT ANY UNEXPLAINED MUSCLE PAIN/WEAKNESS TO YOUR PROVIDER TAKE IN PLACE OF CRESTOR, VA DOESNT SUPPLY CRESTOR, 45 January 23, 2021 [id number] Jan 23, 2020 HARRISON NEELY ATORVASTATIN CA 20MG TAB Discontinued TAKE ONE-HALF T ABLET BY MOUTH AT BEDTIME FOR CHOLESTEROL - REPORT ANY UNEXPLAINED MUSCLE PAIN/WEAKNESS TO YOUR PROVIDER TAKE IN PLACE OF CRESTOR, VA DOESNT SUPPLY CRESTOR, FOR CHOLESTEROL - REPORT ANY UNEXPLAINED MUSCLE PAIN/WEAKNESS TO YOUR PROVIDER TAKE IN PLACE OF CRESTOR, VA DOESNT SUPPLY CRESTOR, 45 Dec 07, 2019 [id number] Mar 01, 2019 HARRISON NEELY BRIEF,SUPER PLUS ABSORB WITH BARRIERS UNDERWEAR X-LARGE ATTE NDS Active USE DIRECTED DIRECTED FOR INCONTINENCE 56 Nov 04, 2020 [id number] Nov 09, 2019 SIMON NEELY BRIEF,SUPER PLUS ABSORB WITH BARRIERS UNDERWEAR X-LARGE ATTE NDS Discontinued USE DIRECTED DIRECTED FOR INCONTINENCE 56 Apr 01, 2020 [id number] Aug 06, 2019 SIMON NEELY GLIPIZIDE 5MG TAB Active TAKE ONE TABLET BY M OUTH EVERY DAY BEFORE BREAKFAST FOR DIABETES. TAKE 30 MINUTES BEFORE EATING. 90 Apr 22, 2020 [id number] February 12, 2020 SIMON NEELY GLIPIZIDE 5MG TAB Discontinued TAKE ONE TABLET BY M OUTH EVERY DAY BEFORE BREAKFAST FOR DIABETES. TAKE 30 MINUTES BEFORE EATING. 90 Feb [id number] February 12, 2020 SIMON NEELY GLIPIZIDE 5MG TAB Discontinued TAKE ONE TABLET BY M OUTH EVERY DAY BEFORE BREAKFAST FOR DIABETES. TAKE 30 MINUTES BEFORE EATING. 90 January [id number] Nov 24, 2019 SIMON NEELY GLIPIZIDE 5MG TAB Discontinued TAKE ONE TABLET BY M OUTH EVERY DAY BEFORE BREAKFAST FOR DIABETES. TAKE 30 MINUTES BEFORE EATING. 90 Nov [id number] Sep 05, 2019 SIMON NEELY LANCET,SOFTCLIX Active USE LANCET BIW FOR TESTING BL OOD GLUCOSE DIRECTED 100 Jun 06, 2020 [id number] Jun 07, 2019 SIMON NEELY C LITHIUM CARBONATE 300MG CAP Active TAKE 1 CAPSU LE BY MOUTH EVERY MORNING AND TAKE 3 CAPSULES BY MOUTH AT BEDTIME FOR MOOD. MUST MAKE AN APPT OR WILL TAPER AND DISCONTINUE MEDICATIONS 120 February 12, 2021 [id number] Mar 04, 2020 ELOISE HUYNH Evelyn Cid [facility] LITHIUM CARBONATE 300MG CAP Discontinued TAKE 1 CAPSU LE BY MOUTH EVERY MORNING AND TAKE 3 CAPSULES BY MOUTH AT BEDTIME FOR MOOD. MUST MAKE AN APPT OR WILL TAPER AND DISCONTINUE MEDICATIONS 120 Aug 06, 2020 [id number] Dec 16, 2019 KANG ZAYAS [facility] LITHIUM CARBONATE 300MG CAP Discontinued TAKE 1 CAPSU LE BY MOUTH EVERY MORNING AND TAKE 3 CAPSULES BY MOUTH AT BEDTIME FOR MOOD. MUST MAKE AN APPT OR WILL TAPER AND DISCONTINUE MEDICATIONS 120 Jun 10, 2020 [id number] Jul 19, 2019 KIMBERLY TARIQ [facility] LITHIUM CARBONATE 300MG CAP Discontinued TAKE 1 CAPSU LE BY MOUTH EVERY MORNING AND TAKE 3 CAPSULES BY MOUTH AT BEDTIME FOR MOOD. MUST MAKE AN APPT OR WILL TAPER AND DISCONTINUE MEDICATIONS 120 Jul 03, 2019 [id number] Jun 03, 2019 KIMBERLY TARIQ [facility] LITHIUM CARBONATE 300MG CAP Discontinued TAKE 1 CAPSU LE BY MOUTH EVERY MORNING AND TAKE 3 CAPSULES BY MOUTH AT BEDTIME FOR MOOD. MUST MAKE AN APPT OR WILL TAPER AND DISCONTINUE MEDICATIONS 120 Mar 23, 2019 [id number] February 21, 2019 KIMBERLY TARIQ [facility] LITHIUM CARBONATE 300MG CAP Discontinued TAKE 1 CAPSU LE BY MOUTH EVERY MORNING AND TAKE 3 CAPSULES BY MOUTH AT BEDTIME FOR MOOD. 120 Dec 18, 2019 [id number] Jan 11, 2019 KIMBERLY BANG [facility] LITHIUM CARBONATE 300MG TAB,SA Discontinued TAKE [...] SPLIT, OR CHEW. 234 May 31, 2019 [id number] Apr 01, 2019 [facility] NO KNOWN NON-VA MEDS MISCELLANEOUS Non-VA Non-VA Documented by: MICHELLE BARTHOLOMEW nted at: [facility] NO KNOWN NON-VA MEDS MISCELLANEOUS Non-VA Non-VA Documented by: GALILEA BENÍTEZ Docume nted at: [facility] OXYCODONE HCL 5MG TAB No n-VA TAKE ONE TABLET BY MOUTH EVERY 6 HOURS NEEDED Non-VA Docume nted by: SIMON NEELY Docume nted at: [facility] QUETIAPINE FUMARATE 100MG TAB Active TAKE ONE-HALF TABL ET BY MOUTH AT BEDTIME 15 Mar 25, 2021 [id number] Mar 24, 2020 J[facility]UTELOISE [facility] TRAMADOL HCL 50MG TAB No n-VA TAKE ONE TABLET BY MOUTH EVERY 6 HOURS NEEDED Non-VA Docume nted by: SIMON NEELY Docume nted at: [facility] TRAZODONE HCL 100MG TAB Discontinued TAKE FOUR TABLET S BY MOUTH AT BEDTIME FOR MOOD OR SLEEP. 120 February 12, 2021 [id number] Mar 01, 2020 ELOISE HUYNH [facility] TRAZODONE HCL 100MG TAB Discontinued TAKE FOUR TABLET S BY MOUTH AT BEDTIME FOR MOOD OR SLEEP. 120 Aug 06, 2020 [id number] February 10, 2020 KANG ZAYAS [facility] TRAZODONE HCL 100MG TAB Discontinued TAKE FOUR TABLET S BY MOUTH AT BEDTIME FOR MOOD OR SLEEP. 120 Jun 03, 2020 [id number] Jul 29, 2019 KIMBERLY BANG [facility] TRAZODONE HCL 100MG TAB Discontinued TAKE FOUR TABLET S BY MOUTH AT BEDTIME FOR MOOD OR SLEEP. 120 February 05, 2020 [id number] May 06, 2019 KIMBERLY BANG [facility] TRAZODONE HCL 100MG TAB Discontinued TAKE FOUR TABLET S BY MOUTH AT BEDTIME FOR MOOD OR SLEEP. 120 Sep 14, 2019 [id number] Jan 07, 2019 KIMBERLY BANG [facility] TROSPIUM CL 20MG TAB Active TAKE ONE TABLET BY MOUTH TWO TIMES A DAY FOR BLADDER. TAKE ON AN EMPTY STOMACH OR AT LEAST ONE HOUR BEFORE FOOD. PER DR. BUTLER 180 January 23, 2021 [id number] Mar 16, 2020 SIMON NEELY [facility] TROSPIUM CL 20MG TAB Discontinued TAKE ONE TABLET BY MOUTH TWO TIMES A DAY FOR BLADDER. TAKE ON AN EMPTY STOMACH OR AT LEAST ONE HOUR BEFORE FOOD. PER DR. BUTLER 180 Apr 01, 2020 [id number] Dec 17, 2019 SIMON NEELY [facility] VENLAFAXINE HCL 75MG 24HR CAP,SA Active TAKE 3 CAPSULES BY MOUTH ONCE A DAY FOR MOOD. TAKE WITH FOOD. February 12, 2021 [id number] Mar 04, 2020 Arlette HUYNH [facility] VENLAFAXINE HCL 75MG 24HR CAP,SA Discontinued TAKE 3 CAPSULES BY MOUTH ONCE A DAY FOR MOOD. TAKE WITH FOOD. Aug 06, 2020 [id number] Jan 05 0 KANG ZAYAS [facility] VENLAFAXINE HCL 75MG 24HR CAP, Discontinued TAKE 3 CAPSULES BY MOUTH ONCE A DAY FOR MOOD. TAKE WITH FOOD. Aug 28, 2019 [id number] Aug 01 9 KIMBERLY TARIQ [facility] VENLAFAXINE HCL 75MG 24HR CAP, Discontinued TAKE 3 CAPSULES BY MOUTH ONCE A DAY FOR MOOD. TAKE WITH FOOD. February 05, 2020 [id number] Jul 01 9 KIMBERLY TARIQ [facility] Problems (Conditions): All historical and current Section Date Range: From patient's date of to the date document was create d. This section includes a list of Problems (Conditions) know n to [place] for the patient. It includes both active and inacti ve problems (conditions). The data comes from all [place] treatment facilities. Problem Status Problem Code Date of Onset Date of Resolution Comm ent(s) Provider Source Abnormality of Gait (ICD-9-CM 781.2) Active 781.2 GALILEA BENÍTEZ [facility] Achilles bursitis or tendinitis (ICD-9-CM 726.71) Active 726.71 RILEY GALVAN [facility] Acquired right hallux valgus Active [id number] RILEY GALVAN [facility] Ankle ulcer due to type 2 diabetes mellitus ([place] [address] [id number]) Active 34287711700299 SIMON NEELY [facility] Bereavement (SNOMED CT 53587995) Active V62.89 SIMON NEELY [facility] Bilateral plantar fasciitis (SNOMED CT [id number]) Ac tive [id number] RILEY GALVAN [facility] BIPOLAR AFFECTIVE NOS Active 296.7 DEMETRA UREÑA [facility] Bipolar disorder (SNOMED CT 11300028) Active 53131716 KIMBERLY BANG [facility] Bunion Active 727.1 MONICA MADDOX [facility] Carpal Tunnel Syndrome * (ICD-9-CM 354.0) Active 354.0 Oct 16, 2002 Entered By: GALILEA BENÍTEZ Comment: rt GALILEA BENÍTEZ [facility] Cerebral Palsy NEC (ICD-9-CM 343.8) Active 343.8 SEPIDEH NELSON [facility] Depression * (ICD-9-CM 311./300.4) Active 311. SIMON NEELY [facility] Derangement of meniscus Active 717.5 J 2001 Entered By: DEMETRA UREÑA Comment: left knee, arthroscopy 11/23 DEMETRA UREÑA [facility] Diabetes mellitus (SNOMED CT 19205188) Active 98681434 SIMON NEELY [facility] Difficulty balancing Active 876320340 HARRISON NEELY [facility] Elevated Liver Function Tests (ICD-9-CM 794.8) Active 794.8 SIMON NEELY [facility] Enthesopathy of ankle and tarsus (ICD-9-CM 726.70/726.79) Active 72 6.70 BECCA JONES [facility] Flat foot Active 734. MONICA MADDOX [facility] GERD * (ICD-9-CM 530.81) Active 530.81 SIMON NEELY [facility] Hip Pain (ICD-9-CM 719.45) Active 719.45 SIMON YA [facility] Hyperkeratosis Active 701.1 MONICA MADDOX [facility] Hyperlipidemia * (ICD-9-CM 272.4) Active 272.4 [facility] Hypertension * (ICD-9-CM 401.9) Active 401.9 GALILEA BENÍTEZ [facility] Hypertension * (ICD-9-CM 401.9) Active 401.9 [facility] Insomnia * (ICD-9-CM 780.52) Active 780.52 SIMON THOMAS [facility] Joint Pain Forearm Active 719.43 MEGANLEONIDAS Magdalena [facility] Lower Leg Injury NOS Active 959.7 [facility] Morbid Obesity * (ICD-9-CM 278.01) Active 278.01 DARION [facility] Obesity * (ICD-9-CM 278.00) Active 278.00 GALILEA WEST [facility] Onychomycosis (SNOMED CT 871673932) Active 110.1 [facility] Osteoarthosis Shoulder Active 715.91 MEGANVERNELL DARION [facility] Pain in joint involving shoulder region (ICD-9-CM 719.41) Active 71 9.41 [facility] Routine Gynecological examination Active V72.31 SIMON NEELY [facility] Sciatica * (ICD-9-CM 724.3) Active 724.3 [facility] Unspecified chest pain * (ICD-9-CM 786.50) Active 786.50 MARK VIVAS [facility] Unsteady when walking Active 87240859 HARRISON NEELY [facility] Urinary Incontinence * (ICD-9-CM 788.30) Active 788.30 JJ GAYTAN [facility] MUSCLE SPASM Inactive 728.85 May 29, 2007 Sep 02, 14 11 Entered By: TONY BENÍTEZ Comment: shoulders TONY BENÍTEZ [facility] Radiology Reports: +/- 30 days of the encounter No Data Provided for This Section Pathology Reports: +/- 30 days of the encounter No Data Provided for This Section Encounter Notes: All associated encounter notes This section contains the clinical notes associated to the Encounter. Date/Time Encounter Note(s) Provider Source Mar 24, 2020 08:13 AM MENTAL HEALTH NOTE: LOCAL TITLE: [facility] [place] PROVIDER FOLLOW-UP STANDARD TITLE: MENTAL HEALTH NOTE DATE OF NOTE: MAR 24, 2020@08:13 ENTRY DATE: MAR 24, 2020@08:13:46 AUTHOR: ELOISE HUYNH COSIGNER: URGENCY: STATUS: COMPLETED Progress Note Active Outpatient Medications (including Supplies): Outpatient Medications Status 1) ACCU-CHEK MACI PLUS(GLUCOSE) TEST STRIP USE 1 STRIP ACTIVE FOR TESTING TWO TIMES PER WEEK FOR BLOOD GLUCOSE TESTING 2) AMLODIPINE BESYLATE 10MG TAB TAKE O NE TABLET BY MOUTH ACTIVE EVERY MORNING 3) ATORVASTATIN CALCIUM 20MG TAB TAKE ONE-HALF TABLET BY ACTIVE MOUTH AT BEDTIME FOR CHOLESTEROL - REPORT ANY UNEXPLAINED MUSCLE PAIN/WEAKNESS TO YOUR PROVIDER TAKE IN PLACE OF CRESTOR, VA DOESNT SUPPLY CRESTOR, 4) BRIEF,PROTECTIVE SUPER ABS XLG ATTE NDS USE ACTIVE DIRECTED DIRECTED FOR INCONTINENCE 5) GLIPIZIDE 5MG TAB TAKE ONE TABLET B Y MOUTH EVERY DAY ACTIVE BEFORE BREAKFAST FOR DIABETES. TAKE 30 MINUTES BEFORE EATING. 6) LANCET,SOFTCLIX USE LANCET TWICE A WEEK FOR ACTIVE TESTING BLOOD GLUCOSE DIRECTED 7) LITHIUM CARBONATE 300MG CAP TAKE ON E CAPSULE BY MOUTH ACTIVE EVERY MORNING AND TAKE THREE CAPSULES AT BEDTIME FOR MOOD. MUST MAKE AN APPT OR WILL TAPER AND DISCONTINUE MEDICATIONS 8) TRAZODONE HCL 100MG TAB TAKE FOUR T ABLETS BY MOUTH AT ACTIVE BEDTIME FOR MOOD OR SLEEP. 9) TROSPIUM CL 20MG TAB TAKE ONE TABLE T BY MOUTH TWO ACTIVE TIMES A DAY FOR BLADDER. TAKE ON AN EMPTY STOMACH OR AT LEAST ONE HOUR BEFORE FOOD. PER DR. BUTLER 10) VENLAFAXINE HCL 75MG 24HR SA CAP TA KE THREE CAPSULES ACTIVE BY MOUTH ONCE A DAY FOR MOOD. TAKE WITH FOOD. Non-VA Medications Status 1) Non-VA OXYCODONE HCL 5MG TAB 5MG MO UTH EVERY 6 HOURS ACTIVE NEEDED 2) Non-VA TRAMADOL HCL 50MG TAB 50MG M OUTH EVERY 6 HOURS ACTIVE NEEDED 12 Total Medications Compared newly ordered medications and medication changes to active medications and non-VA medications, and then reviewed medications with patient and/or caregiver. All discrepancies noted and reconciled. Patients, or caregivers, was provided with reconciled medications list and advised to provide to all non VA providers. Potential adverse reactions of new medications were discussed with the patient. Time spent in the visit: 30 mins with at least 16 minutes psychotherapy. CC follow up bipolar disorder, "my Trazodone is not working" HPI The patient is a 64 yo , disabled woman who was seen by myself on 02.12.2020 for psychiatric evaluation via VVC for initial visit to this provider. Today's appointment is conducted via VVC in light of COVID19. At the start of the [facility] Connect visit, the following steps were ensured: * Consent*: Obtain or confirm that verbal consent for telehealth has been documented (Note: This is a one-time requirement for your service) * Address: Obtain or confirm the location and address of the patient to ensure they are in a safe place and for use in case of an emergency. * Phone Numbers:*Patients current phone number for use if disconnected. Emergency contacts phone number for use in an emergency. * Survey the environment and identify all participants. * Lock the virtual conference room once all participants have joined. No changes were made to the patient's medications/treatment plan since last visit. Patient has been trying to contact the office due to problems with sleep. Takes Trazodone 400 mg PO Q HS and it is not as effective as before. Patient reports Trazodone is not working like it was before and when she doesn't sleep well, "all hell breaks loose." In the past, withing 15 minutes, she was out after taking Trazodone. Now, she gets a few hours of sleep at a time, a total of 6 hours/day and feels tired in the day. Sleep has been a problem for about 3 weeks now, most nights. Prior to that, there was no problem. 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 Mood has been "up and down because of no sleep. Inanimate objects get on my nerves-like shampoo bottle falling on the floor." Thoughts are "not detrimental, depressed or dark." Thoughts are not rapid. People who come in have been telling her she needs to slow down. Other than sleep, patient has been doing well. She is eating normally and keeping up with self cares. When she cannot sleep, she is up at night doing things-like the dishes. Patient taking her medications as prescribed with no negative side effects. Risk Factors Assessment: Do you have current suicidal thoughts/ideations? No Do you have a plan/method for suicide? No Do you have intent to carry out that plan? No Compliance with treatment: good Medication side effects: none reported Reliability of historian: good ROS The patient denies having excessive anxiety and panic attacks. The patient denies being bothered by recurrent, unwanted thoughts and denies having any rituals or doing things repeatedly without being able to resist doing so. The patient denies experiencing hallucinations or having ideas or beliefs that others have challenged as untrue. The patient denies having suicidal or homicidal ideation, intent or plans. (+)guns or firearms- has them but she doesn't know where they are, (-)pain (-)illness/changes in health SUBSTANCE USE HISTORY (-)alcohol (-)drugs (-)IVDU (-)tobacco PSYCHIATRIC HISTORY (+)outpatient treatment-[place] (+)[place] [facility] [place] (+)suicide attempts-took handful of Tegr etol and Tylenol, was taken to the hospital 2007, when she ended up at [facility] and then [facility] PAST PSYCHIATRIC MEDICATIONS Benztropine Carbamazepine Citalopram Diazepam Gabapentin Lamotrigine Quetiepine Zolpidem FAMILY PSYCHIATRIC HISTORY (+)depression-maternal aunt, maternal si de (+)alcohol-maternal side (-)anxiety, bipolar disorder, schizophre susan (-)completed suicide or homicide MEDICAL HISTORY Active Problem Bipolar disorder (SNOMED CT 64344393) F31.32 07/20/2015 KIMBERLY BANG GERD * (ICD-9-CM 530.81) 530.81 09/07/2007 SIMON NEELY Depression * (ICD-9-CM 311./300.4) 311. 09/07/2007 SIMON NEELY Hypertension * (ICD-9-CM 401.9) 401.9 09/07/2007 SIMON NEELY Insomnia * (ICD-9-CM 780.52) 780.52 10/23/2008 SIMON NEELY Hyperlipidemia * (ICD-9-CM 272.4) 272.4 10/23/2008 SIMON NEELY Morbid Obesity * (ICD-9-CM 278.01) 278.01 10/08/2009 DARION YOUNG Bunion 727.1 03/09/2010 MONICA MADDOX Flat foot 734. 03/09/2010 MONICA MADDOX Hyperkeratosis 701.1 03/09/2010 MONICA MADDOX Bilateral plantar fasciitis (SNOMED CT 957036 01/04/2016 RILEY GALVAN Achilles bursitis or tendinitis (ICD-9-CM 726 07/01/2010 RILEY GALVAN Hip Pain (ICD-9-CM 719.45) 719.45 08/03/2010 SIMON NEELY Sciatica * (ICD-9-CM 724.3) 724.3 08/03/2010 SIMON NEELY Diabetes mellitus (SNOMED CT 80627388) E11.65 09/08/2015 SIMON NEELY Elevated Liver Function Tests (ICD-9-CM 794.8 03/21/2011 SIMON NEELY Pain in joint involving shoulder region (ICD- 06/01/2011 SIMON NEELY Routine Gynecological examination V72.31 01/01/2013 SIMON NEELY Bereavement (SNOMED CT 45990815) V62.89 01/01/2013 SIMON NEELY Ankle ulcer due to type 2 diabetes mellitus ( 09/08/2015 SIMON NEELY Onychomycosis (SNOMED CT 350341613) 110.1 01/10/2014 SIMON NEELY Osteoarthosis Shoulder 715.91 07/22/2014 LEONIDAS GUZMAN Lower Leg Injury NOS 959.7 10/20/2014 LEONIDAS GUZMAN Joint Pain Forearm 719.43 10/20/2014 LEONIDAS GUZMAN Unsteady when walking 781.2 01/12/2015 SIMON NEELY Difficulty balancing 781.99 01/12/2015 SIMON NEELY Acquired right hallux valgus M20.12 01/04/2016 RILEY GALVAN (-)LOC, head trauma or 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 Speech is spontaneous, of slightly rapid rate with push and normal volume. Motor activity within normal limits. Mood is "good, just worried about this sleep," affect full range. Thoughts organized, perception appropriate, no evidence of delusional thinking, hallucinations or illusions. Denies suicidal ideation, intent and plan. Denies homicidal ideation, intent and plan. Insight intact-patient able to relay mood symptoms and response to medications, judgment intact-patient compliant with treatment recommendations. DS - Disabilities Eligibility: NSC VERIFIED DIAGNOSTIC IMPRESSION BIPOLAR DISORDER TARGET SYMPTOMS/GOALS FOR TREATMENT 1. Patient will rate depression <4/10 ( 10=most severe symptoms imaginable, 0 =none). met 2. Patient will rate anxiety <4/10 (10= most severe symptoms imaginable, 0 =none). met 3. Patient will report sleeping 6 to 8 hours/night. not met PLAN 1. Start Seroquel 50 mg PO Q HS to help with sleep and mood stabilization. Patient last took this in 2008. 2. Taper and DC Trazodone (TRAZODONE 40 0 MG PO Q HS PRN SLEEP)-not as effective as before for sleep and patient seems to be hypomanic. 3. Continue other medications as prescr ibed: LITHIUM 300 MG PO Q AM AND 900 MG PO Q HS, BIPOLAR DISORDER EFFEXOR XR 225 MG PO Q DAY, DEPRESSION, ANXIETY 4. Labs up to date. Will check again b efore next appointment-CBC, CMP, TSH, LI, UA 5. Provided supportive psychotherapy an d will continue as needed. 6. Patient to return in 2 to 3 weeks fo r follow up. 7. Should symptoms worsen between now a nd next appointment, advised patient to call the [employer] Crisis Line, 911 or proceed to the nearest hospital emergency department. Discussed the following with the patient: 1. Diagnosis, prognosis and treatment r ecommendations, including the risk of not treating. 2. Medication including their indicatio ns, risks, benefits and side effects including but not limited to the following: seizures, hypothyroidism, DI, tremor worsening mood, activation symptoms, suicidal thoughts, serotonin syndrome, elevated BP, priapism, metabolic syndrome, EPS and NMS. Medication Reconciliation Are there any OTC medications, vitamins or herbal supplements in use but not listed? No Are there any prescription meds in use that are not listed? No Are there any medications no longer in use, or on hold? No The undersigned has discussed active and pending medications with the patient and/or caregiver. Changes have been made as appropriate. Yes Allergies reviewed, edited in CPRS as appropriate and confirmed by patient: Yes Patient/family/caregiver educated on the active and pending outpatient medication list. The list was reviewed with and given to the patient/family/caregiver upon discharge from clinic. Patient/family/caregiver educated on importance of sharing medication list with all VA providers and non-VA providers Discrepancies reported by the patient referred to prescribing physician. Physician notified via additional signer N/A [facility]-PATIENT EDUCATION BHST: Patient education done at this encounter: Readiness to learn: Patient appears ready to learn. [facility] Education: Patient received PSYCHOTROPIC MEDICATION information. Level of Understanding: Good [facility] Video Connect/Video to Home: [facility] Video Connect (VVC)/Video to home template v1.0 Appointment was conducted via [facility] Video Connect or Video to home VVC/Video to home appointment information: The following items were reviewed: - The nature of telehealth, its benefits, and risks. - Confidentiality and its limits. - The importance of having a confidential location for the service. - The emergency plan. - The appointment should be treated like an in person appointment (no smoking or driving during session, showing up fully dressed, etc.) The Virtual Medical Room was locked for this encounter. A survey of the environment was conducted and it is appropriate to conduct a VVC/Video to home appointment. Confirmed [place]'s Non-VA location for this appointment: 's Home [address], [place] [address] Address and phone number verified with [place]. Emergency Contact: Name: Phone: chart was notified of right to decline Telehealth services and eligibility for other options. [place] consented to be seen via VVC/Video to home. EMERGENCY PLAN In the event of an emergency, the or family will call emergency services, if capable. Teleprovider will remain in the virtual medical room until emergency response arrives and handoff to emergency services is complete. If [place] is unable to make emergency call, Teleprovider is to call the national E911 service at [phone] and ask to be connected to emergency services for the [place]'s location. Crisis Hotline: 920.612.5613 and push 1 [employer] Help Desk ([employer]): 726.802.9721 or 567-383-7946. Hours of operation: Monday - Monday, 7 am - 11 pm ET. Verified Provider's location and contact information for this appointment: [facility] PROVIDER CLINIC: [facility] - Return to clinic. /susie/ ELOISE HUYNH PSYCHIATRIST Signed: 03/24/2020 08:59 ELOISE HUYNH [facility]
--- OUTSIDE RECORDS SUMMARY | 2020-03-28 08:19 | XMS REPORT ---
Author Author [facility] Organization [facility] Address [address] [place] [address] Phone Unavailable Care Team Providers Care Supervisor Taping Name Role Phone FLORINDASIMON PCP Unavailable Insurance [...] PART A Aug 25, 2011 PART A [id number] GADBERRY,CHARLANNE PATIENT MEDICARE (WNR) MEDICARE (M) PART B Aug 25, 2011 PART B [id number] GADBERRY,CHARLANNE PATIENT MEDICARE (WNR) MEDICARE (M) PART A Aug 25, 2011 PART A [id number] GADBERRY,CHARLANNE PATIENT MEDICARE (WNR) MEDICARE (M) PART B Aug 25, 2011 PART B [id number] GADBERRY,CHARLANNE PATIENT MEDICARE (WNR) MEDICARE (M) PART A Aug 25, 2011 PART A [id number] SANDRA MORELOS PATIENT MEDICARE (WNR) MEDICARE (M) PART B Aug 25, 2011 PART B [id number] SANDRA MORELOS PATIENT MEDICARE PART D (WNR) MEDICARE (M) PART D Sep 25, 2012 PART D [id number] SANDRA WHITMAN PATIENT Selected Encounter This section includes the information on record at [place] for the Encounter. Date/Time Encounter Type Encounter Description Reason Provider Source Feb 28, 2020 12:56 PM Outpatient Encounter ADMIN PAT ACTIVTIES (LALI WATT) [facility] IHE Encounter Template Text not used by [place] Assessments - Encounter Diagnoses No Data Provided for This Section Plan of Treatment: Future Appointments (+ 6 months) and Future Tests (+/- 45 day s) The Plan of Treatment section includes future care activities for the patient fr om all [place] treatment facilities. This section includes future appointments and fu ture orders which are active, pending or scheduled. Future Appointments This section includes appointments that were scheduled t o occur 6 months from the date of the Encounter, up to a maximum of 20 appointme nts. The data comes from all [place] treatment facilities. Appointment Date/Time Appointment Type Appointment Facili ty Name Mar 24, 2020 08:30 AM AMBULATORY - PSYCHIATRY [facility] Apr 16, 2020 10:00 AM AMBULATORY - PSYCHIATRY [facility] May 12, 2020 10:00 AM AMBULATORY - PSYCHIATRY [facility] Surgical Procedures: All associated to the [...] and tobacco- related health factors from the [place] facility where the Encounter took place. Current Smoking Status This section includes the most current smoking, or tobacco -related health factor, from the [place] facility where the Encounter took place. Date/Time Current Smoking Status Comment Facility Dec 28, 2015 10:28 AM CURRENT NON-SMOKER [facility] Tobacco Use History This section includes a history of the smoking, or tobacco -related health factors, that were collected on or before the date of the Encoun ter. The data comes from the [place] facility where the Encounter took place. Date/Time Smoking Status/Tobacco Use Comment Facil ity Dec 28, 2015 10:28 AM LIFETIME NON-TOBACCO USER DARION MARTINEZ [facility] May 14, 2015 10:33 AM CURRENT NON-SMOKER DARION MARTINEZ [facility] May 14, 2015 10:33 AM LIFETIME NON-TOBACCO USER DARION MARTINEZ [facility] Dec 08, 2014 10:25 AM CURRENT NON-SMOKER DARION MARTINEZ [facility] Dec 08, 2014 10:25 AM LIFETIME NON-TOBACCO USER DARION MARTINEZ [facility] Oct 20, 2014 09:33 AM CURRENT NON-SMOKER DARION MARTINEZ [facility] Oct 20, 2014 09:33 AM LIFETIME NON-TOBACCO USER DARION MARTINEZ [facility] Jul 22, 2014 09:41 AM CURRENT NON-SMOKER DARION MARTINEZ [facility] Jul 22, 2014 09:41 AM LIFETIME NON-TOBACCO USER DARION MARTINEZ [facility] February 04, 2014 10:04 AM NON-TOBACCO USER DARION MARTINEZ [facility] Dec 16, 2013 11:26 AM CURRENT NON-SMOKER DARION MARTINEZ [facility] Dec 16, 2013 11:26 AM LIFETIME NON-TOBACCO USER DARION MARTINEZ [facility] Jan 14, 2013 01:14 PM CURRENT NON-SMOKER DARION MARTINEZ [facility] Jan 14, 2013 01:14 PM LIFETIME NON-TOBACCO USER DARION MARTINEZ [facility] February 14, 2012 09:57 AM CUR[facility]SMOK[facility] February 14, 2012 09:57 AM LIFETIME NON-TOBACCO USER DARION MARTINEZ [facility] Mar 14, 2011 01:13 PM CURRENT NON-SMOKER DARION MARTINEZ [facility] Mar 14, 2011 01:13 PM LIFETIME NON-TOBACCO USER [facility] Apr 15, 2010 09:39 AM CUR[facility]MOK[facility] Apr 15, 2010 09:39 AM LIFETIME NON-TOBACCO USER DAROIN MARTINEZ [facility] Mar 09, 2010 02:30 PM CURRENT NON-SMOKER DARION MARTINEZ [facility] Mar 09, 2010 02:30 PM LIFETIME NON-TOBACCO USER DARION [facility]ODAVID [facility] Nov 06, 2009 10:50 AM CURRENT NON-SMOKER DARION MARTINEZ [facility] Nov 06, 2009 10:50 AM LIFETIME NON-TOBACCO USER DARION LOZANODAVID [facility] Advance Directives: All historical and current Section Date Range: From patient's date of to the date document was create d. This section includes ALL of a patient's completed or amen ded [place] Advance and Rescinded Directives. The entries below indicate that a direc tive exists for the patient, but an actual copy is not included with this docume nt. The data comes from all [place] facilities. Date Advance Directives Provider Source Sep 15, 2009 ADVANCE DIRECTIVE DISCUSSION JADE VARMA [facility] Jul 21, 2006 ADVANCE DIRECTIVE [facility] Jul 12, 2006 ADVANCE DIRECTIVE DISCUSSION SAV PAULSON [facility] Allergies and Adverse Reactions (ADRs): All historical and current Section Date Range: From patient's date of to the date document was create d. This section includes Allergies and Adverse Reactions (ADR s) on record with [place] for the patient. The data comes from a ll [place] treatment facilities. It does not list Allergies/ADRs that were removed or entered in error. Some allergies/ADRs may be reported in t he Immunization section. Allergen Event Date Event Type Reaction(s) Severity Source ENALAPRIL Aug 22, 2017 Propensity to adverse reactions to drug (diso rder) [facility] May 04, 2007 Propensity to adverse reactions to drug ( disorder) Cough [facility] [place] Aug 22, 2017 Propensity to adverse reactions to drug (diso rder) [facility] [place] Oct 08, 2015 Propensity to adverse reactions to drug (disorder) Eruption [facility] 15 [place] Aug 22, 2017 Propensity to adverse reactions to drug (diso rder) [facility] [place] Jan 16, 2007 Propensity to adverse reactions to drug (disorder) Cough [facility] [place] Aug 22, 2017 Propensity to adverse reactions to drug (diso rder) [facility] [place] Oct 23, 2008 Propensity to adverse reactions to drug ( disorder) Eruption [facility] 15 Medications: VA dispensed (-15 months) and Non-VA Documented (Obtained Outside A) Section Date Range: 1) prescriptions processed by a [place] pharmacy in the last 15 m [facility], and 2) all medications recorded in the [place] medical record as "non-VA medic ations". Pharmacy terms refer to [place] pharmacy's work on prescriptions. VA patient s are advised to take their medications as instructed by their health care team. The data comes from all [place] treatment facilities. Glossary of Pharmacy Terms:Active = A prescription that can be filled at the local [place] pharmacy.Active: On Hold = An active prescription that will not be filled until pharmacy resolves the issue.Active: Susp = An active prescription that is not scheduled to be filled yet.Clinic Order = A medication received during a visit to a [place] clinic or emergency department (currently not available).Discontinued [...] may be a prescription from either the [place] or other providers that was filled outside the [place]. Or, it may be an over the [...] BLOOD GLUCOSE TESTING 50 Jun 06, 2020 [id number] February 21, 2020 SIMON NEELY AMLODIPINE BESYLATE 10MG TAB Active TAKE ONE TABLET BY MOUTH EVERY MORNING 90 January 23, 2021 [id number] Jan 23, 2020 SIMON NEELY AMLODIPINE BESYLATE 10MG TAB Discontinued TAKE ONE TA BLET BY MOUTH EVERY MORNING 90 Nov 27, 2019 [id number] Oct 21, 2019 SIMON NEELY ATORVASTATIN CA 20MG TAB Active TAKE ONE-HALF T ABLET BY MOUTH AT BEDTIME FOR CHOLESTEROL - REPORT ANY UNEXPLAINED MUSCLE PAIN/WEAKNESS TO YOUR PROVIDER TAKE IN PLACE OF CRESTOR, VA DOESNT SUPPLY CRESTOR, FOR CHOLESTEROL - REPORT ANY UNEXPLAINED MUSCLE PAIN/WEAKNESS TO YOUR PROVIDER TAKE IN PLACE OF CRESTOR, VA DOESNT SUPPLY CRESTOR, 45 January 23, 2021 [id number] Jan 23, 2020 HARRISON NEELY ATORVASTATIN CA 20MG TAB Discontinued TAKE ONE-HALF T ABLET BY MOUTH AT BEDTIME FOR CHOLESTEROL - REPORT ANY UNEXPLAINED MUSCLE PAIN/WEAKNESS TO YOUR PROVIDER TAKE IN PLACE OF CRESTOR, [facility] DOESNT SUPPLY CRESTOR, FOR CHOLESTEROL - REPORT ANY UNEXPLAINED MUSCLE PAIN/WEAKNESS TO YOUR PROVIDER TAKE IN PLACE OF CRESTOR, [facility] DOESNT SUPPLY CRESTOR, 45 Dec 07, 2019 [id number] Mar 01, 2019 HARRISON NEELY [facility] BRIEF,SUPER PLUS ABSORB WITH BARRIERS UNDERWEAR X-LARGE ATTE NDS Active USE DIRECTED DIRECTED FOR INCONTINENCE 56 Nov 04, 2020 [id number] Nov 09, 2019 SIMON NEELY BRIEF,SUPER PLUS ABSORB WITH BARRIERS UNDERWEAR X-LARGE ATTE NDS Discontinued USE DIRECTED DIRECTED FOR INCONTINENCE 56 Apr 01, 2020 [id number] Aug 06, 2019 SIMON NEELY GLIPIZIDE 5MG TAB Active TAKE ONE TABLET BY M OUTH EVERY DAY BEFORE BREAKFAST FOR DIABETES. TAKE 30 MINUTES BEFORE EATING. 90 Apr 22, 2020 [id number] February 12, 2020 SIMON NEELY GLIPIZIDE 5MG TAB Discontinued TAKE ONE TABLET BY M OUTH EVERY DAY BEFORE BREAKFAST FOR DIABETES. TAKE 30 MINUTES BEFORE EATING. 90 Feb 242019 [id number] February 12, 2020 SIMON NEELY GLIPIZIDE 5MG TAB Discontinued TAKE ONE TABLET BY M OUTH EVERY DAY BEFORE BREAKFAST FOR DIABETES. TAKE 30 MINUTES BEFORE EATING. 90 January [id number] Nov 24, 2019 SIMON NEELY GLIPIZIDE 5MG TAB Discontinued TAKE ONE TABLET BY M OUTH EVERY DAY BEFORE BREAKFAST FOR DIABETES. TAKE 30 MINUTES BEFORE EATING. 90 Nov [id number] Sep 05, 2019 SIMON NEELY LANCET,SOFTCLIX Active USE LANCET BIW FOR TESTING BL OOD GLUCOSE DIRECTED 100 Jun 06, 2020 [id number] Jun 07, 2019 SIMON NEELY C LITHIUM CARBONATE 300MG CAP Active TAKE 1 CAPSU LE BY MOUTH EVERY MORNING AND TAKE 3 CAPSULES BY MOUTH AT BEDTIME FOR MOOD. MUST MAKE AN APPT OR WILL TAPER AND DISCONTINUE MEDICATIONS 120 February 12, 2021 [id number] Mar 04, 2020 ELOISE HUYNH [facility] LITHIUM CARBONATE 300MG CAP Discontinued TAKE 1 CAPSU LE BY MOUTH EVERY MORNING AND TAKE 3 CAPSULES BY MOUTH AT BEDTIME FOR MOOD. MUST MAKE AN APPT OR WILL TAPER AND DISCONTINUE MEDICATIONS 120 Aug 06, 2020 [id number] Dec 16, 2019 [facility] LITHIUM CARBONATE 300MG CAP Discontinued TAKE 1 CAPSU LE BY MOUTH EVERY MORNING AND TAKE 3 CAPSULES BY MOUTH AT BEDTIME FOR MOOD. MUST MAKE AN APPT OR WILL TAPER AND DISCONTINUE MEDICATIONS 120 Jun 10, 2020 [id number] Jul 19, 2019 [facility] LITHIUM CARBONATE 300MG CAP Discontinued TAKE 1 CAPSU LE BY MOUTH EVERY MORNING AND TAKE 3 CAPSULES BY MOUTH AT BEDTIME FOR MOOD. MUST MAKE AN APPT OR WILL TAPER AND DISCONTINUE MEDICATIONS 120 Jul 03, 2019 [id number] Jun 03, 2019 [facility] LITHIUM CARBONATE 300MG CAP Discontinued TAKE 1 CAPSU LE BY MOUTH EVERY MORNING AND TAKE 3 CAPSULES BY MOUTH AT BEDTIME FOR MOOD. MUST MAKE AN APPT OR WILL TAPER AND DISCONTINUE MEDICATIONS 120 Mar 23, 2019 [id number] February 21, 2019 [facility] LITHIUM CARBONATE 300MG CAP Discontinued TAKE 1 CAPSU LE BY MOUTH EVERY MORNING AND TAKE 3 CAPSULES BY MOUTH AT BEDTIME FOR MOOD. 120 Dec 18, 2019 [id number] Jan 11, 2019 [facility] LITHIUM CARBONATE 300MG TAB,SA Discontinued TAKE [...] SPLIT, OR CHEW. 234 May 31, 2019 [id number] Apr 01, 2019 [facility] NO KNOWN NON-VA MEDS MISCELLANEOUS Non-VA Non-VA Documented by: MICHELLE BARTHOLOMEW Docume nted at: [facility] NO KNOWN NON-VA MEDS MISCELLANEOUS Non-VA Non-VA Documented by: GALILEA BENÍTEZume nted at: [facility] OXYCODONE HCL 5MG TAB No n-VA TAKE ONE TABLET BY MOUTH EVERY 6 HOURS NEEDED Non-VA Docume nted by: SIMON NEELYume nted at: [facility] QUETIAPINE FUMARATE 100MG TAB Active TAKE ONE-HALF TABL ET BY MOUTH AT BEDTIME 15 Mar 25, 2021 [id number] Mar 24, 2020 ELOISE HUYNH [facility] TRAMADOL HCL 50MG TAB No n-VA TAKE ONE TABLET BY MOUTH EVERY 6 HOURS NEEDED Non-VA Docume nted by: SIMON NEELY Docume nted at: [facility] TRAZODONE HCL 100MG TAB Discontinued TAKE FOUR TABLET S BY MOUTH AT BEDTIME FOR MOOD OR SLEEP. 120 February 12, 2021 [id number] Mar 01, 2020 ELOISE HUYNH [facility] TRAZODONE HCL 100MG TAB Discontinued TAKE FOUR TABLET S BY MOUTH AT BEDTIME FOR MOOD OR SLEEP. 120 Aug 06, 2020 [id number] February 10, 2020 [facility] TRAZODONE HCL 100MG TAB Discontinued TAKE FOUR TABLET S BY MOUTH AT BEDTIME FOR MOOD OR SLEEP. 120 Jun 03, 2020 [id number] Jul 29, 2019 [facility] TRAZODONE HCL 100MG TAB Discontinued TAKE FOUR TABLET S BY MOUTH AT BEDTIME FOR MOOD OR SLEEP. 120 February 05, 2020 [id number] May 06, 2019 KIMBERLY BANG [facility] TRAZODONE HCL 100MG TAB Discontinued TAKE FOUR TABLET S BY MOUTH AT BEDTIME FOR MOOD OR SLEEP. 120 Sep 14, 2019 [id number] Jan 07, 2019 [facility] TROSPIUM CL 20MG TAB Active TAKE ONE TABLET BY MOUTH TWO TIMES A DAY FOR BLADDER. TAKE ON AN EMPTY STOMACH OR AT LEAST ONE HOUR BEFORE FOOD. PER DR. BUTLER 180 January 23, 2021 [id number] Mar 16, 2020 SIMON NEELY [facility] TROSPIUM CL 20MG TAB Discontinued TAKE ONE TABLET BY MOUTH TWO TIMES A DAY FOR BLADDER. TAKE ON AN EMPTY STOMACH OR AT LEAST ONE HOUR BEFORE FOOD. PER DR. BUTLRE 180 Apr 01, 2020 [id number] Dec 17, 2019 SIMON NEELY [facility] VENLAFAXINE HCL 75MG 24HR CAP,SA Active TAKE 3 CAPSULES BY MOUTH ONCE A DAY FOR MOOD. TAKE WITH FOOD. 90 February 12, 2021 [id number] Mar 04, 2020 [facility] VENLAFAXINE HCL 75MG 24HR CAP,SA Discontinued TAKE 3 CAPSULES BY MOUTH ONCE A DAY FOR MOOD. TAKE WITH FOOD. Aug 06, 2020 [id number] Jan 05 0 [facility] VENLAFAXINE HCL 75MG 24HR CAP,SA Discontinued TAKE 3 CAPSULES BY MOUTH ONCE A DAY FOR MOOD. TAKE WITH FOOD. Aug 28, 2019 [id number] Aug 01 9 KIMBERLY TARIQ [facility] VENLAFAXINE HCL 75MG 24HR CAP,SA Discontinued TAKE 3 CAPSULES BY MOUTH ONCE A DAY FOR MOOD. TAKE WITH FOOD. February 05, 2020 [id number] Jul 01 9 [facility] Problems (Conditions): All historical and current Section Date Range: From patient's date of to the date document was create d. This section includes a list of Problems (Conditions) know n to [place] for the patient. It includes both active and inacti ve problems (conditions). The data comes from all [place] treatment facilities. Problem Status Problem Code Date of Onset Date of Resolution Comm ent(s) Provider Source Abnormality of Gait (ICD-9-CM 781.2) Active 781.[address] [facility] Achilles bursitis or tendinitis (ICD-9-CM 726.71) Active 726.71 [facility] Acquired right hallux valgus Active [id number] [facility] Ankle ulcer due to type 2 diabetes mellitus ([place] [address] 711751920) Active [id number] SIMON NEELY [facility] Bereavement (SNOMED CT 93641771) Active V62.89 SIMON NEELY [facility] Bilateral plantar fasciitis (SNOMED CT [id number]) Ac tive [id number] [facility] BIPOLAR AFFECTIVE NOS Active 296.7 DEMETRA UREÑA [facility] Bipolar disorder (SNOMED CT 36575917) Active 87377822 [facility]ANG [facility] Bunion Active 727.1 MONICA MADDOX [facility] Carpal Tunnel Syndrome * (ICD-9-CM 354.0) Active 354.0 Oct 16, 2002 Entered By: GALILEA BENÍTEZ Comment: rt GALILEA BENÍTEZ [facility] Cerebral Palsy NEC (ICD-9-CM 343.8) Active 343.8 EDDIESEPIDEH Pal [facility] Depression * (ICD-9-CM 311./300.4) Active 311. SIMON NEELY [facility] Derangement of meniscus Active 717.5 J 2001 Entered By: DEMETRA UREÑA Comment: left knee, arthroscopy 11/23 [facility] Diabetes mellitus (SNOMED CT 87337572) Active 55324945 SIMON NEELY [facility] Difficulty balancing Active 363877516 [facility] Elevated Liver Function Tests (ICD-9-CM 794.8) Active 794.8 SIMON NEELY [facility] Enthesopathy of ankle and tarsus (ICD-9-CM 726.70/726.79) Active 72 6.70 BECCA JONES [facility] Flat foot Active 734. MONICA MADODX [facility] GERD * (ICD-9-CM 530.81) Active 530.81 SIMON NEELY [facility] Hip Pain (ICD-9-CM 719.45) Active 719.45 SIMON YA [facility] Hyperkeratosis Active 701.1 [facility] Hyperlipidemia * (ICD-9-CM 272.4) Active 272.4 SIMON NEELY [facility] Hypertension * (ICD-9-CM 401.9) Active 401.9 GALILEA BENÍTEZ [facility] Hypertension * (ICD-9-CM 401.9) Active 401.9 [facility] Insomnia * (ICD-9-CM 780.52) Active 780.52 [facility] Joint Pain Forearm Active 719.43 LEONIDAS GUZMAN S D[facility]ION [facility] Lower Leg Injury NOS Active 959.7 [facility] N S [facility] Morbid Obesity * (ICD-9-CM 278.01) Active 278.01 [facility] Obesity * (ICD-9-CM 278.00) Active 278.00 KANCHAN SinaiERNESTINAAnahi Pal [facility] Onychomycosis (SNOMED CT 868917484) Active 110.1 SIMON NEELY [facility] Osteoarthosis Shoulder Active 715.91 MEGANVERNELL D[facility]ION [facility] Pain in joint involving shoulder region (ICD-9-CM 719.41) Active 71 9.41 [facility] Routine Gynecological examination Active V72.31 SIMON NEELY [facility] Sciatica * (ICD-9-CM 724.3) Active 724.3 [facility] Unspecified chest pain * (ICD-9-CM 786.50) Active 786.50 MARK VIVAS [facility] Unsteady when walking Active 72056429 FLORINDAHARRISON [facility] Urinary Incontinence * (ICD-9-CM 788.30) Active 788.30 JJ GAYTAN [facility] MUSCLE SPASM Inactive 728.85 May 29, 2007 Sep 02, 02 Entered By: TONY BENÍTEZ Comment: shoulders TONY BENÍTEZ [facility] Radiology Reports: +/- 30 days of the encounter No Data Provided for This Section Pathology Reports: +/- 30 days of the encounter No Data Provided for This Section Encounter Notes: All associated encounter notes This section contains the clinical notes associated to the Encounter. Date/Time Encounter Note(s) Provider Source Feb 28, 2020 12:56 PM MENTAL HEALTH ADMINISTRATIVE NOTE: LOCAL TITLE: [facility] ADMIN NURSE STANDARD TITLE: MENTAL HEALTH ADMINISTRATIVE NOTE DATE OF NOTE: FEB 28, 2020@12:56 ENTRY DATE: FEB 28, 2020@12:56:25 AUTHOR: ARMEN TORRES EXP COSIGNER: URGENCY: STATUS: COMPLETED [place]- ADMIN NURSE: Brandon leaves message on nurse line requesting a return call and states that it's nothing urgent. leaves contact number of . This RN attempted to contact @ number provided. Identifiable voicemail was received, but mailbox was full so unable to leave message. /susie/ ARMEN TORRES RN Signed: 02/28/2020 12:59 Receipt Acknowledged By: * AWAITING SIGNATURE * EMBER JARVIS REBECCA L [facility] DOLE [facility]
--- OUTSIDE RECORDS SUMMARY | 2020-03-28 08:20 | XMS REPORT | Encounter Summary ---
Author Author Department of [facility] center[facility] Organization Department of [facility] Affai rs Address [address] [place] [address] Phone Unavailable Care Team Providers Care Director Of Event Sales Name Role Phone FLORINDA SIMON PCP Unavailable [...] PART A Aug 25, 2011 PART A [id number] GADBERRY,CHARLANNE PATIENT MEDICARE (WNR) MEDICARE (M) PART B Aug 25, 2011 PART B [id number] GADBERRY,CHARLANNE PATIENT MEDICARE (WNR) MEDICARE (M) PART A Aug 25, 2011 PART A [id number] GADBERRY,CHARLANNE PATIENT MEDICARE (WNR) MEDICARE (M) PART B Aug 25, 2011 PART B [id number] GADBERRY,CHARLANNE PATIENT MEDICARE (WNR) MEDICARE (M) PART A Aug 25, 2011 PART A [id number] SANDRA MORELOS PATIENT MEDICARE (WNR) MEDICARE (M) PART B Aug 25, 2011 PART B [id number] SANDRA MORELOS PATIENT MEDICARE PART D (WNR) MEDICARE (M) PART D Sep 25, 2012 PART D [id number] SANDRA WHITMAN PATIENT Selected Encounter This section includes the information on record at [place] for the Encounter. Date/Time Encounter Type Encounter Description Reason Provider Source Mar 19, 2020 10:54 AM Outpatient Encounter TELEPHONE MH ICD-1 0-CM F31.32 Bipolar disorder, current episode depressed, moderate with Provider Comments: Bipolar disorder ([facility] [id number]) KARRIE SCHMITZ [facility] IHE Encounter Template Text not used by [place] Assessments - Encounter Diagnoses This section includes the primary and secondary diag noses documented for the Encounter. Date/Time Primary/Secondary Diagnosis Diagnosis Name Provider Source Mar 19, 2020 10:54 AM PRIMARY Bipolar disorder, current episode depressed, moderate KARRIE SCHMITZ [facility] Plan of Treatment: Future Appointments (+ 6 months) and Future Tests (+/- 45 day s) The Plan of Treatment section includes future care activities for the patient fr om all [place] treatment facilities. This section includes future appointments and fu ture orders which are active, pending or scheduled. Future Appointments This section includes appointments that were scheduled t o occur 6 months from the date of the Encounter, up to a maximum of 20 appointme nts. The data comes from all [place] treatment facilities. Appointment Date/Time Appointment Type Appointment Facili ty Name Mar 24, 2020 08:30 AM AMBULAT[facility] Apr 16, 2020 10:00 AM AMBULAT[facility] - PSYCHIATRY [facility] May 12, 2020 10:00 AM AMBULATORY - PSYCHIATRY [facility] Surgical Procedures: All associated to the encounter [...] and tobacco- related health factors from the [place] facility where the Encounter took place. Current Smoking Status This section includes the most current smoking, or tobacco -related health factor, from the [facility] facility where the Encounter took place. Date/Time Current Smoking Status Comment Facility Dec 28, 2015 10:28 AM CURRENT NON-SMOKER [facility] Tobacco Use History This section includes a history of the smoking, or tobacco -related health factors, that were collected on or before the date of the Encoun ter. The data comes from the [place] facility where the Encounter took place. Date/Time Smoking Status/Tobacco Use Comment Facil jdy Dec 28, 2015 10:28 AM LIFETIME NON-TOBACCO USER DARION Cid [facility] May 14, 2015 10:33 AM CURRENT NON-SMOKER DARION Cid [facility] May 14, 2015 10:33 AM LIFETIME NON-TOBACCO USER DARION Jose Roberto [facility] Dec 08, 2014 10:25 AM CURRENT NON-SMOKER AULT Jose Roberto [facility] Dec 08, 2014 10:25 AM LIFETIME NON-TOBACCO USER DARION Jose Roberto [facility] Oct 20, 2014 09:33 AM CURRENT NON-SMOKER AULT Jose Roberto [facility] Oct 20, 2014 09:33 AM LIFETIME NON-TOBACCO USER DARION Jose Roberto [facility] Jul 22, 2014 09:41 AM CURRENT NON-SMOKER AULT Jose Roberto [facility] Jul 22, 2014 09:41 AM LIFETIME NON-TOBACCO USER DARION Cid [facility] February 04, 2014 10:04 AM NON-TOBACCO USER DARION MARTINEZ [facility] Dec 16, 2013 11:26 AM CURRENT NON-SMOKER DARION Cid [facility] Dec 16, 2013 11:26 AM LIFETIME NON-TOBACCO USER DARION Cid [facility] Jan 14, 2013 01:14 PM CURRENT [facility]-SMOKER [facility] Jan 14, 2013 01:14 PM LIFETIME NON-TOBACCO USER DARION Cid [facility] February 14, 2012 09:57 AM CURRENT NON-SMOKER DARION Cid [facility] February 14, 2012 09:57 AM LIFETIME NON-TOBACCO USER DARION Cid [facility] Mar 14, 2011 01:13 PM CURRENT NON-SMOKER DARION Cid [facility] Mar 14, 2011 01:13 PM LIFETIME NON-TOBACCO USER DARION Cid [facility] Apr 15, 2010 09:39 AM CURRENT NON-SMOKER DARION Cid [facility] Apr 15, 2010 09:39 AM LIFETIME NON-TOBACCO USER DARION Cid [facility] Mar 09, 2010 02:30 PM CURRENT NON-SMOKER DARION Cid [facility] Mar 09, 2010 02:30 PM LIFETIME NON-TOBACCO USER DARION MARTINEZ [facility] Nov 06, 2009 10:50 AM CURRENT NON-SMOKER DARION MARTINEZ [facility] Nov 06, 2009 10:50 AM LIFETIME NON-TOBACCO USER DARION MARTINEZ [facility] Advance Directives: All historical and current [...] docume nt. The data comes from all [place] facilities. Date Advance Directives Provider Source Sep 15, 2009 ADVANCE DIRECTIVE DISCUSSION JADE VARMAN [facility] Jul 21, 2006 ADVANCE DIRECTIVE [facility] Jul 12, 2006 ADVANCE DIRECTIVE DISCUSSION SAV PUALSON [facility] Allergies and Adverse Reactions (ADRs): All historical and current Section Date Range: From patient's date of to the date document was create d. This section includes Allergies and Adverse Reactions (ADR s) on record with VA for the patient. The data comes from a ll [place] treatment facilities. It does not list Allergies/ADRs that were removed or entered in error. Some allergies/ADRs may be reported in t he Immunization section. Allergen Event Date Event Type Reaction(s) Severity Source ENALAPRIL Aug 22, 2017 Propensity to adverse reactions to drug (diso rder) [facility] ENALAPRIL May 04, 2007 Propensity to adverse reactions to drug ( disorder) Cough [facility] LEVAQUIN Aug 22, 2017 Propensity to adverse reactions to drug (diso rder) [facility] Oct 08, 2015 Propensity to adverse reactions to drug (disorder) Eruption [facility] 15 LISINOPRIL Aug 22, 2017 Propensity to adverse reactions to drug (diso rder) [facility] LISINOPRIL Jan 16, 2007 Propensity to adverse reactions to drug (disorder) Cough [facility] NIACIN Aug 22, 2017 Propensity to adverse reactions to drug (diso rder) [facility] NIACIN Oct 23, 2008 Propensity to adverse reactions to drug ( disorder) Eruption [facility] 15 Medications: VA dispensed (-15 months) and Non-VA Documented (Obtained Outside A) Section Date Range: 1) prescriptions processed by a VA pharmacy in the last 15 m [facility], and 2) all medications recorded in the VA medical record as "non-VA medic ations". Pharmacy terms refer to VA pharmacy's work on prescriptions. VA patient s are advised to take their medications as instructed by their health care team. The data comes from all [place] treatment facilities. Glossary of Pharmacy Terms:Active = A prescription that can be filled at the local VA pharmacy.Active: On Hold = An active prescription that will not be filled until pharmacy resolves the issue.Active: Susp = An active prescription that is not scheduled to be filled yet.Clinic Order = A medication received during a visit to a [place] clinic or emergency department (currently not available).Discontinued [...] other providers that was filled outside the [place]. Or, it may be an over the [...] BLOOD GLUCOSE TESTING 50 Jun 06, 2020 [id number] February 21, 2020 SIMON NEELY AMLODIPINE BESYLATE 10MG TAB Active TAKE ONE TABLET BY MOUTH EVERY MORNING 90 January 23, 2021 [id number] Jan 23, 2020 SIMON NEELY AMLODIPINE BESYLATE 10MG TAB Discontinued TAKE ONE TA BLET BY MOUTH EVERY MORNING 90 Nov 27, 2019 [id number] Oct 21, 2019 SIMON NEELY ATORVASTATIN CA 20MG TAB Active TAKE ONE-HALF T ABLET BY MOUTH AT BEDTIME FOR CHOLESTEROL - REPORT ANY UNEXPLAINED MUSCLE PAIN/WEAKNESS TO YOUR PROVIDER TAKE IN PLACE OF CRESTOR, VA DOESNT SUPPLY CRESTOR, FOR CHOLESTEROL - REPORT ANY UNEXPLAINED MUSCLE PAIN/WEAKNESS TO YOUR PROVIDER TAKE IN PLACE OF CRESTOR, VA DOESNT SUPPLY CRESTOR, 45 January 23, 2021 [id number] Jan 23, 2020 HARRISON NEELY ATORVASTATIN CA 20MG TAB Discontinued TAKE ONE-HALF T ABLET BY MOUTH AT BEDTIME FOR CHOLESTEROL - REPORT ANY UNEXPLAINED MUSCLE PAIN/WEAKNESS TO YOUR PROVIDER TAKE IN PLACE OF CRESTOR, VA DOESNT SUPPLY CRESTOR, FOR CHOLESTEROL - REPORT ANY UNEXPLAINED MUSCLE PAIN/WEAKNESS TO YOUR PROVIDER TAKE IN PLACE OF CRESTOR, VA DOESNT SUPPLY CRESTOR, 45 Dec 07, 2019 [id number] Mar 01, 2019 HARRISON NEELY BRIEF,SUPER PLUS ABSORB WITH BARRIERS UNDERWEAR X-LARGE ATTE NDS Active USE DIRECTED DIRECTED FOR INCONTINENCE 56 Nov 04, 2020 [id number] Nov 09, 2019 SIMON NEELY BRIEF,SUPER PLUS ABSORB WITH BARRIERS UNDERWEAR X-LARGE ATTE NDS Discontinued USE DIRECTED DIRECTED FOR INCONTINENCE 56 Apr 01, 2020 [id number] Aug 06, 2019 SIMON NEELY GLIPIZIDE 5MG TAB Active TAKE ONE TABLET BY M OUTH EVERY DAY BEFORE BREAKFAST FOR DIABETES. TAKE 30 MINUTES BEFORE EATING. 90 Apr 22, 2020 [id number] February 12, 2020 SIMON NEELY GLIPIZIDE 5MG TAB Discontinued TAKE ONE TABLET BY M OUTH EVERY DAY BEFORE BREAKFAST FOR DIABETES. TAKE 30 MINUTES BEFORE EATING. 90 Feb 242019 [id number] February 12, 2020 SIMON NEELY GLIPIZIDE 5MG TAB Discontinued TAKE ONE TABLET BY M OUTH EVERY DAY BEFORE BREAKFAST FOR DIABETES. TAKE 30 MINUTES BEFORE EATING. 90 January [id number] Nov 24, 2019 SIMON NEELY GLIPIZIDE 5MG TAB Discontinued TAKE ONE TABLET BY M OUTH EVERY DAY BEFORE BREAKFAST FOR DIABETES. TAKE 30 MINUTES BEFORE EATING. 90 Nov [id number] Sep 05, 2019 SIMON NEELY LANCET,SOFTCLIX Active USE LANCET BIW FOR TESTING BL OOD GLUCOSE DIRECTED 100 Jun 06, 2020 [id number] Jun 07, 2019 SIMON NEELY C LITHIUM CARBONATE 300MG CAP Active TAKE 1 CAPSU LE BY MOUTH EVERY MORNING AND TAKE 3 CAPSULES BY MOUTH AT BEDTIME FOR MOOD. MUST MAKE AN APPT OR WILL TAPER AND DISCONTINUE MEDICATIONS 120 February 12, 2021 [id number] Mar 04, 2020 [facility] LITHIUM CARBONATE 300MG CAP Discontinued TAKE 1 CAPSU LE BY MOUTH EVERY MORNING AND TAKE 3 CAPSULES BY MOUTH AT BEDTIME FOR MOOD. MUST MAKE AN APPT OR WILL TAPER AND DISCONTINUE MEDICATIONS 120 Aug 06, 2020 [id number] Dec 16, 2019 KANG ZAYAS [facility] LITHIUM CARBONATE 300MG CAP Discontinued TAKE 1 CAPSU LE BY MOUTH EVERY MORNING AND TAKE 3 CAPSULES BY MOUTH AT BEDTIME FOR MOOD. MUST MAKE AN APPT OR WILL TAPER AND DISCONTINUE MEDICATIONS 120 Jun 10, 2020 [id number] Jul 19, 2019 KIMBERLY TARIQ [facility] LITHIUM CARBONATE 300MG CAP Discontinued TAKE 1 CAPSU LE BY MOUTH EVERY MORNING AND TAKE 3 CAPSULES BY MOUTH AT BEDTIME FOR MOOD. MUST MAKE AN APPT OR WILL TAPER AND DISCONTINUE MEDICATIONS 120 Jul 03, 2019 [id number] Jun 03, 2019 [facility]LY [facility]IQ [facility] LITHIUM CARBONATE 300MG CAP Discontinued TAKE 1 CAPSU LE BY MOUTH EVERY MORNING AND TAKE 3 CAPSULES BY MOUTH AT BEDTIME FOR MOOD. MUST MAKE AN APPT OR WILL TAPER AND DISCONTINUE MEDICATIONS 120 Mar 23, 2019 [id number] February 21, 2019 [facility]IMBERLY TARIQ [facility] LITHIUM CARBONATE 300MG CAP Discontinued TAKE 1 CAPSU LE BY MOUTH EVERY MORNING AND TAKE 3 CAPSULES BY MOUTH AT BEDTIME FOR MOOD. 120 Dec 18, 2019 [id number] Jan 11, 2019 [facility]LY BANG [facility] LITHIUM CARBONATE 300MG TAB,SA Discontinued TAKE [...] SPLIT, OR CHEW. 234 May 31, 2019 [id number] Apr 01, 2019 [facility] NO KNOWN NON-VA MEDS MISCELLANEOUS Non-VA Non-VA Documented by: MICHELLE BARTHOLOMEW nted at: [facility] NO KNOWN NON-VA MEDS MISCELLANEOUS Non-VA Non-VA Documented by: GALILEA BENÍTEZ Docume nted at: [facility] OXYCODONE HCL 5MG TAB No n-VA TAKE ONE TABLET BY MOUTH EVERY 6 HOURS NEEDED Non-VA Docume nted by: SIMON NEELY Docume nted at: [facility] QUETIAPINE FUMARATE 100MG TAB Active TAKE ONE-HALF TABL ET BY MOUTH AT BEDTIME 15 Mar 25, 2021 [id number] Mar 24, 2020 ELOISE BAUTISTA [facility] TRAMADOL HCL 50MG TAB No n-VA TAKE ONE TABLET BY MOUTH EVERY 6 HOURS NEEDED Non-VA Docume nted by: SIOMN NEELY Docume nted at: [facility] TRAZODONE HCL 100MG TAB Discontinued TAKE FOUR TABLET S BY MOUTH AT BEDTIME FOR MOOD OR SLEEP. 120 February 12, 2021 [id number] Mar 01, 2020 ELOISE BAUTISTA [facility] TRAZODONE HCL 100MG TAB Discontinued TAKE FOUR TABLET S BY MOUTH AT BEDTIME FOR MOOD OR SLEEP. 120 Aug 06, 2020 [id number] February 10, 2020 [facility]AS [facility] TRAZODONE HCL 100MG TAB Discontinued TAKE FOUR TABLET S BY MOUTH AT BEDTIME FOR MOOD OR SLEEP. 120 Jun 03, 2020 [id number] Jul 29, 2019 KIMBERLY BANG [facility] TRAZODONE HCL 100MG TAB Discontinued TAKE FOUR TABLET S BY MOUTH AT BEDTIME FOR MOOD OR SLEEP. 120 February 05, 2020 [id number] May 06, 2019 KIMBERLY BANG [facility] TRAZODONE HCL 100MG TAB Discontinued TAKE FOUR TABLET S BY MOUTH AT BEDTIME FOR MOOD OR SLEEP. 120 Sep 14, 2019 [id number] Jan 07, 2019 KIMBERLY BANG [facility] TROSPIUM CL 20MG TAB Active TAKE ONE TABLET BY MOUTH TWO TIMES A DAY FOR BLADDER. TAKE ON AN EMPTY STOMACH OR AT LEAST ONE HOUR BEFORE FOOD. PER DR. BUTLER 180 January 23, 2021 [id number] Mar 16, 2020 SIMON NEELY [facility] TROSPIUM CL 20MG TAB Discontinued TAKE ONE TABLET BY MOUTH TWO TIMES A DAY FOR BLADDER. TAKE ON AN EMPTY STOMACH OR AT LEAST ONE HOUR BEFORE FOOD. PER DR. BUTLER 180 Apr 01, 2020 [id number] Dec 17, 2019 SIMON NEELY [facility] VENLAFAXINE HCL 75MG 24HR CAP,SA Active TAKE 3 CAPSULES BY MOUTH ONCE A DAY FOR MOOD. TAKE WITH FOOD. February 12, 2021 [id number] Mar 04, 2020 Arlette [facility]ISTA [facility] VENLAFAXINE HCL 75MG 24HR CAP,SA Discontinued TAKE 3 CAPSULES BY MOUTH ONCE A DAY FOR MOOD. TAKE WITH FOOD. Aug 06, 2020 [id number] Jan 05 0 KANG [facility]AS [facility] VENLAFAXINE HCL 75MG 24HR CAP, Discontinued TAKE 3 CAPSULES BY MOUTH ONCE A DAY FOR MOOD. TAKE WITH FOOD. Aug 28, 2019 [id number] Aug 01 9 KIMBERLY TARIQ [facility] VENLAFAXINE HCL 75MG 24HR CAP,SA Discontinued TAKE 3 CAPSULES BY MOUTH ONCE A DAY FOR MOOD. TAKE WITH FOOD. February 05, 2020 [id number] Jul 01 9 KIMBERLY TARIQ [facility] Problems (Conditions): All historical and current Section Date Range: From patient's date of to the date document was create d. This section includes a list of Problems (Conditions) know n to [place] for the patient. It includes both active and inacti ve problems (conditions). The data comes from all [place] treatment facilities. Problem Status Problem Code Date of Onset Date of Resolution Comm ent(s) Provider Source Abnormality of Gait (ICD-9-CM 781.2) Active 781.2 GALILEA BENÍTEZ [facility] Achilles bursitis or tendinitis (ICD-9-CM 726.71) Active 726.71 RILEY GALVAN [facility] Acquired right hallux valgus Active [id number] RILEY GALVAN [facility] Ankle ulcer due to type 2 diabetes mellitus ([place] [address] [id number]) Active [id number] SIMON NEELY [facility] Bereavement (SNOMED [place] 68837112) Active V62.89 SIMON NEELY [facility] Bilateral plantar fasciitis (SNOMED CT [id number]) Ac tive [id number] RILEY GALVAN [facility] BIPOLAR AFFECTIVE NOS Active 296.7 DEMETRA UREÑA [facility] Bipolar disorder (SNOMED CT 74306823) Active 42290924 KIMBERLY BANG [facility] Bunion Active 727.1 MONICA MADDOX [facility] Carpal Tunnel Syndrome * (ICD-9-CM 354.0) Active 354.0 Oct 16, 2002 Entered By: GALILEA BENÍTEZ Comment: rt GALILEA BENÍTEZ [facility] Cerebral Palsy NEC (ICD-9-CM 343.8) Active 343.8 SEPIDEH NELSON [facility] Depression * (ICD-9-CM 311./300.4) Active 311. SIMON NEELY [facility] Derangement of meniscus Active 717.5 J an 2001 Entered By: DEMETRA UREÑA Comment: left knee, arthroscopy 11/23 DEMETRA UREÑA [facility] Diabetes mellitus (SNOMED CT 75258025) Active 16365007 SIMON NEELY [facility] Difficulty balancing Active 126608278 [facility] Elevated Liver Function Tests (ICD-9-CM 794.8) Active 794.8 SIMON NEELY [facility] Enthesopathy of ankle and tarsus (ICD-9-CM 726.70/726.79) Active 72 6.70 BECCA JONES [facility] Flat foot Active 734. MONICA MADDOX [facility] GERD * (ICD-9-CM 530.81) Active 530.81 SIMON NEELY [facility] Hip Pain (ICD-9-CM 719.45) Active 719.45 SIMON YA [facility] Hyperkeratosis Active 701.1 MADDOX,YEKaylah MARTINEZ [facility] Hyperlipidemia * (ICD-9-CM 272.4) Active 272.4 [facility] Hypertension * (ICD-9-CM 401.9) Active 401.9 GALILEA BENÍTEZ [facility] Hypertension * (ICD-9-CM 401.9) Active 401.9 [facility] Insomnia * (ICD-9-CM 780.52) Active 780.52 SIMON THOMAS [facility] Joint Pain Forearm Active 719.43 [facility] Lower Leg Injury NOS Active 959.7 MEGANSHARRI Urbina [facility] Morbid Obesity * (ICD-9-CM 278.01) Active 278.01 D[facility]ION [facility] Obesity * (ICD-9-CM 278.00) Active 278.00 GALILEA WEST [facility] Onychomycosis (SNOMED CT 477667181) Active 110.1 [facility] Osteoarthosis Shoulder Active 715.91 VERNELL [facility] Pain in joint involving shoulder region (ICD-9-CM 719.41) Active 71 9.41 [facility]ITAL[facility] Routine Gynecological examination Active V72.31 [facility] NE[facility] Sciatica * (ICD-9-CM 724.3) Active 724.3 [facility] Unspecified chest pain * (ICD-9-CM 786.50) Active 786.50 MARK VIVAS [facility] Unsteady when walking Active 15703374 HARRISON NEELY [facility] Urinary Incontinence * (ICD-9-CM 788.30) Active 788.30 JJ GAYTAN [facility] MUSCLE SPASM Inactive 728.85 May 29, 2007 Sep 02 Entered By: TONY BENÍTEZ Comment: shoulders TONY BENÍTEZ [facility] Radiology Reports: +/- 30 days of the encounter No Data Provided for This Section Pathology Reports: +/- 30 days of the encounter No Data Provided for This Section Encounter Notes: All associated encounter notes This section contains the clinical notes associated to the Encounter. Date/Time Encounter Note(s) Provider Source Mar 19, 2020 10:54 AM MENTAL HEALTH CRISIS INTERVE NTION NOTE: LOCAL TITLE: [facility] NOTE STANDARD TITLE: MENTAL HEALTH CRISIS INTERVENTION NOTE DATE OF NOTE: MAR 19, 2020@10:54:53 ENTRY DATE: MAR 19, 2020@10:54:54 AUTHOR: DIMITRY SCHMITZIGNER: URGENCY: STATUS: COMPLETED Part I: Hotline Call Report generated by the [place] National Suicide Prevention Hotline, [place], [place]. Hotline responder: Fan Vitale Hotline Call Start Date/Time: 03/17/2020 11:37 AM Hotline Call End Date/Time: 03/17/2020 11:54 AM Reasons For Calling: Suicidal thoughts Mental health/illness Sleep Issues Service Era: Service Branch: : None Clinical Impression and Level of Suicide Risk: Moderate to Low Risk Suicide Ideation or Behavior Present: Plan or Intent for Suicide: No Answer Past Suicide Attempts: Yes Access to Means To Hurt: No Answer Access to Firearms: No Answer Outcome of Call/Action Taken: Caller stayed on line until the call ended normally Call Synopsis: SANDRA Ramos Priority Routine [facility] [phone] Age (): 64() [facility] [phone] CRYSTAL = No flags noted CV 19 NO SDV TERM: called that states she is bipolar and that for the last two nights her medication has not worked as well as in the past and that she was trying to contact her doctor but has been unsuccessful is reaching anyone at the [place]. 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 Mental Health Evaluation Off-Site Evaluation/Phone Evaluation Follow up narrative: 03/17/2020 at 11:03am --This provider a ttempted to establish contact with the patient without success. A voicemail was left for the patient to call this provider when she received the message and my contact information was provided. Plan to await her return call with additional follow-up if there is no contact by the close of business today. Contacted [facility] for Dr. Bautista's first available appointment. 03/24/2020 at 8030 through [facility]. Attempted to contact patient again to see if she would accept appointment or if she felt that she needed to be sooner in triage clinic. 03/18/2020 at 8:42am: This provider attempted to establish contact with the patient for a second time without success. A second voicemail was left for the patient to call this provider when she received the message and my contact information was provided. Plan to await her return call with additional follow-up if there is no contact by the close of [employer] today. 03/19/2020 at 10:50am: This provider established contact with patient by phone. stated that she is diagnosed with bipolar disorder and has noticed increased irritability and sleep problems. [place] said that she is interested in scheduled appointment with Dr. Bautista on 03/24 at 0830 through [place] [facility]. Reviewed mental health resources. [place] denied current suicidal ideations, plan, or intent. CONTACT (1) Initial phone attempt made within 24 business hours (mandatory) (2) [place] reached. ACTION TAKEN/PLAN (6) SP staff and/or other clinical staff connected with [place]. Risk assessed and needs addressed as indicated. (8) Reviewed with and/or caller how to access emergency mental health resources [facility] (12) [place] is aware and in agreement with plan COMMENTS on any additional information up to this point (optional): Any further follow-up will be documented in CPRS. PLEASE CLOSE CONSULT. /susie/ KARRIE SCHMITZ Suicide Prevention Aircraft Tool Maker Signed: 03/19/2020 10:55 Receipt Acknowledged By: * AWAITING SIGNATURE * BRANDEN VIRK COURTNEY L [facility] DO[facility]
--- OUTSIDE RECORDS SUMMARY | 2020-03-28 08:20 | XMS REPORT ---
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 a nd next appointment, advised patient to call the [facility] Crisis Line, 911 or proceed to the nearest hospital emergency department. Discussed the following with the patient: 1. Diagnosis, prognosis and treatment r ecommendations, including the risk of not treating. 2. Medication including their indicatio ns, risks, benefits and side effects including but not limited to the following: seizures, hypothyroidism, DI, tremor worsening mood, activation symptoms, suicidal thoughts, serotonin syndrome, elevated BP, priapism. MHC: PATIENT EDUCATION: Patient had mhc: patient education at this encounter. Level of Understanding: Good MHC: SUPERVISION: Provider is a psychiatrist, thus supervision review is not necessary. MHC: TREATMENT PLAN: Patient Treatment Plan: Treatment plan discussed with patient. WI-PATIENT EDUCATION BHST: Patient education done at this encounter: Readiness to learn: Patient appears ready to learn. MHC Education: Patient received PSYCHOTROPIC MEDICATION information. Level of Understanding: Good WI-RTC PROVIDER CLINIC: MHC - Return to clinic. [facility]/Video to Home: [facility] (VVC)/Video to home template v1.0 Appointment was conducted via [facility] or Video to home VVC/Video to home appointment information: The following items were reviewed: - The nature of telehealth, its benefits, and risks. - Confidentaility and its limits. - The importance of [...] conduct a VVC/Video to home appointment. Confirmed 's Non-VA location for this appointment: [facility] [address], [place] [address] Address and phone number verified with [place]. Emergency Contact: Name: Phone: same [place] was notified of right to decline Telehealth services and eligibility for other options. [place] consented to be seen via VVC/Video to home. EMERGENCY PLAN In the event of an emergency, the or family will call emergency services, if capable. Teleprovider will remain in the virtual medical room until emergency response arrives and handoff to emergency services is complete. If is unable to make emergency call, Teleprovider is to call the national E911 service at [phone] and ask to be connected to emergency services for the 's location. Crisis Hotline: 243.543.5137 and push 1 [employer] Help Desk (NTTHD): 515.362.5771 or 880-717-0552. Hours of operation: Monday - Monday, 7 am - 11 pm ET. Verified Provider's location and contact information for this appointment: /susie/ ELOISE HUYNH PSYCHIATRIST Signed: 02/12/2020 14:46 ELOISE HUYNH [facility]
--- OUTSIDE RECORDS SUMMARY | 2020-03-28 08:20 | XMS REPORT ---
Author Author Department of [facility] center[facility]A Organization Department of [facility] Affai Address [address] [place] [address] Phone Unavailable Care Team Providers Care Cuffer Name Role Phone FLORINDASIMON PCP Unavailable Insurance [...] PART A Aug 25, 2011 PART A [id number] GADBERRY,CHARLANNE PATIENT MEDICARE (WNR) MEDICARE (M) PART B Aug 25, 2011 PART B [id number] GADBERRY,CHARLANNE PATIENT MEDICARE (WNR) MEDICARE (M) PART A Aug 25, 2011 PART A [id number] GADBERRY,CHARLANNE PATIENT MEDICARE (WNR) MEDICARE (M) PART B Aug 25, 2011 PART B [id number] GADBERRY,CHARLANNE PATIENT MEDICARE (WNR) MEDICARE (M) PART A Aug 25, 2011 PART A [id number] SANDRA MORELOS PATIENT MEDICARE (WNR) MEDICARE (M) PART B Aug 25, 2011 PART B [id number] SANDRA MORELOS PATIENT MEDICARE PART D (WNR) MEDICARE (M) PART D Sep 25, 2012 PART D [id number] SANDRA WHITMAN PATIENT Selected Encounter This section includes the information on record at [place] for the Encounter. Date/Time Encounter Type Encounter Description Reason Provider Source Mar 17, 2020 11:24 AM Outpatient Encounter ADMIN PAT ACTIVTIES (MAS NONCT) BRANDEN VIRK Ina [facility] IHE Encounter Template Text not used by [place] Assessments - Encounter Diagnoses No Data Provided for This Section Plan of Treatment: Future Appointments (+ 6 months) and Future Tests (+/- 45 day s) The Plan of Treatment section includes future care activities for the patient fr om all [place] treatment facilities. This section includes future appointments and fu ture orders which are active, pending or scheduled. Future Appointments This section includes appointments that were scheduled t o occur 6 months from the date of the Encounter, up to a maximum of 20 appointme nts. The data comes from all [place] treatment facilities. Appointment Date/Time Appointment Type Appointment Facili ty Name Mar 24, 2020 08:30 AM AMBULATORY - PSYCHIATRY [facility] Apr 16, 2020 10:00 AM AMBULATORY - PSYCHIATRY [facility] May 12, 2020 10:00 AM AMBULATORY PSYCHIATRY [facility] Surgical Procedures: All associated to [...] and tobacco- related health factors from the [place] facility where the Encounter took place. Current Smoking Status This section includes the most current smoking, or tobacco -related health factor, from the [place] facility where the Encounter took place. Date/Time Current Smoking Status Comment Facility Dec 28, 2015 10:28 AM CURRENT NON-SMOKER [facility] Tobacco Use History This section includes a history of the smoking, or tobacco -related health factors, that were collected on or before the date of the Encoun ter. The data comes from the [place] facility where the Encounter took place. Date/Time Smoking Status/Tobacco Use Comment Facil ity Dec 28, 2015 10:28 AM LIFETIME NON-TOBACCO USER DARION MARTINEZ [facility] May 14, 2015 10:33 AM CURRENT NON-SMOKER DARION MARTINEZ [facility] May 14, 2015 10:33 AM LIFETIME NON-TOBACCO USER DARION MARTINEZ [facility] Dec 08, 2014 10:25 AM CURRENT NON-SMOKER DARION MARTINEZ [facility] Dec 08, 2014 10:25 AM LIFETIME NON-TOBACCO USER DARION MARTINEZ [facility] Oct 20, 2014 09:33 AM CURRENT NON-SMOKER DARION MARTINEZ [facility] Oct 20, 2014 09:33 AM LIFETIME NON-TOBACCO USER DARION MARTINEZ [facility] Jul 22, 2014 09:41 AM CURRENT NON-SMOKER DARION MARTINEZ [facility] Jul 22, 2014 09:41 AM LIFETIME NON-TOBACCO USER DARION MARTINEZ [facility] February 04, 2014 10:04 AM NON-TOBACCO USER DARION MARTINEZ [facility] Dec 16, 2013 11:26 AM CURRENT NON-SMOKER DARION MARTINEZ [facility] Dec 16, 2013 11:26 AM LIFETIME NON-TOBACCO USER DARION MARTINEZ [facility] Jan 14, 2013 01:14 PM CURRENT NON-SMOKER DARION MARTINEZ [facility] Jan 14, 2013 01:14 PM LIFETIME NON-TOBACCO USER DARION MARTINEZ [facility] February 14, 2012 09:57 AM [facility] February 14, 2012 09:57 AM LIFETIME NON-TOBACCO USER DARION MARTINEZ [facility] Mar 14, 2011 01:13 PM CURRENT NON-SMOKER DARION MARTINEZ [facility] Mar 14, 2011 01:13 PM LIFETIME NON-TOBACCO USER DARION MARTINEZ [facility] Apr 15, 2010 09:39 AM CURRENT NON-SMOKER DARION MARTINEZ [facility] Apr 15, 2010 09:39 AM LIFETIME NON-TOBACCO USER DARION MARTINEZ [facility] Mar 09, 2010 02:30 PM CURRENT NON-SMOKER DARION MARTINEZ [facility] Mar 09, 2010 02:30 PM LIFETIME NON-TOBACCO USER DARION MARTINEZ [facility] Nov 06, 2009 10:50 AM CURRENT NON-SMOKER DARION MARTINEZ [facility] Nov 06, 2009 10:50 AM LIFETIME NON-TOBACCO USER DARION MARTINEZ [facility] Advance Directives: All historical and current Section [...] docume nt. The data comes from all [place] facilities. Date Advance Directives Provider Source Sep 15, 2009 ADVANCE DIRECTIVE DISCUSSION JADE VARMA [facility] Jul 21, 2006 ADVANCE DIRECTIVE [facility] Jul 12, 2006 ADVANCE DIRECTIVE DISCUSSION [facility] Allergies and Adverse Reactions (ADRs): All historical and current Section Date Range: From patient's date of to the date document was create d. This section includes Allergies and Adverse Reactions (ADR s) on record with VA for the patient. The data comes from a [facility] facilities. It does not list Allergies/ADRs that were removed or entered in error. Some allergies/ADRs may be reported in t he Immunization section. Allergen Event Date Event Type Reaction(s) Severity Source ENALAPRIL Aug 22, 2017 Propensity to adverse reactions to drug (diso rder) [facility] ENALAPRIL May 04, 2007 Propensity to adverse reactions to drug ( disorder) Cough [facility] LEVAQUIN Aug 22, 2017 Propensity to adverse reactions to drug (diso rder) [facility] Oct 08, 2015 Propensity to adverse reactions to drug (disorder) Eruption [facility] 15 LISINOPRIL Aug 22, 2017 Propensity to adverse reactions to drug (diso rder) [facility] LISINOPRIL Jan 16, 2007 Propensity to adverse reactions to drug (disorder) Cough [facility] NIACIN Aug 22, 2017 Propensity to adverse reactions to drug (diso rder) [facility] NIACIN Oct 23, 2008 Propensity to adverse reactions to drug ( disorder) Eruption [facility] 15 Medications: VA dispensed (-15 months) and Non-VA Documented (Obtained Outside A) Section Date Range: 1) prescriptions processed by a [place] pharmacy in the last 15 m [facility], and 2) all medications recorded in the [place] medical record as "non-VA medic ations". Pharmacy terms refer to [place] pharmacy's work on prescriptions. VA patient s are advised to take their medications as instructed by their health care team. The data comes from all [place] treatment facilities. Glossary of Pharmacy Terms:Active = A prescription that can be filled at the local [place] pharmacy.Active: On Hold = An active prescription that will not be filled until pharmacy resolves the issue.Active: Susp = An active prescription that is not scheduled to be filled yet.Clinic Order = A medication received during a visit to a [place] clinic or emergency department (currently not available).Discontinued [...] may be a prescription from either the [place] or other providers that was filled outside the [place]. Or, it may be an over the [...] BLOOD GLUCOSE TESTING 50 Jun 06, 2020 [id number] February 21, 2020 SIMON NEELY AMLODIPINE BESYLATE 10MG TAB Active TAKE ONE TABLET BY MOUTH EVERY MORNING 90 January 23, 2021 [id number] Jan 23, 2020 SIMON NEELY AMLODIPINE BESYLATE 10MG TAB Discontinued TAKE ONE TA BLET BY MOUTH EVERY MORNING 90 Nov 27, 2019 [id number] Oct 21, 2019 SIMON NEELY ATORVASTATIN CA 20MG TAB Active TAKE ONE-HALF T ABLET BY MOUTH AT BEDTIME FOR CHOLESTEROL - REPORT ANY UNEXPLAINED MUSCLE PAIN/WEAKNESS TO YOUR PROVIDER TAKE IN PLACE OF CRESTOR, VA DOESNT SUPPLY CRESTOR, FOR CHOLESTEROL - REPORT ANY UNEXPLAINED MUSCLE PAIN/WEAKNESS TO YOUR PROVIDER TAKE IN PLACE OF CRESTOR, VA DOESNT SUPPLY CRESTOR, 45 January 23, 2021 [id number] Jan 23, 2020 HARRISON NEELY ATORVASTATIN CA 20MG TAB Discontinued TAKE ONE-HALF T ABLET BY MOUTH AT BEDTIME FOR CHOLESTEROL - REPORT ANY UNEXPLAINED MUSCLE PAIN/WEAKNESS TO YOUR PROVIDER TAKE IN PLACE OF CRESTOR, [facility] DOESNT SUPPLY CRESTOR, FOR CHOLESTEROL - REPORT ANY UNEXPLAINED MUSCLE PAIN/WEAKNESS TO YOUR PROVIDER TAKE IN PLACE OF CRESTOR, [facility] DOESNT SUPPLY CRESTOR, 45 Dec 07, 2019 [id number] Mar 01, 2019 HARRISON NEELY BRIEF,SUPER PLUS ABSORB WITH BARRIERS UNDERWEAR X-LARGE ATTE NDS Active USE DIRECTED DIRECTED FOR INCONTINENCE 56 Nov 04, 2020 [id number] Nov 09, 2019 SIMON NEELY BRIEF,SUPER PLUS ABSORB WITH BARRIERS UNDERWEAR X-LARGE ATTE NDS Discontinued USE DIRECTED DIRECTED FOR INCONTINENCE 56 Apr 01, 2020 [id number] Aug 06, 2019 SIMON NEELY GLIPIZIDE 5MG TAB Active TAKE ONE TABLET BY M OUTH EVERY DAY BEFORE BREAKFAST FOR DIABETES. TAKE 30 MINUTES BEFORE EATING. 90 Apr 22, 2020 [id number] February 12, 2020 SIMON NEELY GLIPIZIDE 5MG TAB Discontinued TAKE ONE TABLET BY M OUTH EVERY DAY BEFORE BREAKFAST FOR DIABETES. TAKE 30 MINUTES BEFORE EATING. 90 Feb 242019 [id number] February 12, 2020 SIMON NEELY GLIPIZIDE 5MG TAB Discontinued TAKE ONE TABLET BY M OUTH EVERY DAY BEFORE BREAKFAST FOR DIABETES. TAKE 30 MINUTES BEFORE EATING. 90 January [id number] Nov 24, 2019 SIMON NEELY GLIPIZIDE 5MG TAB Discontinued TAKE ONE TABLET BY M OUTH EVERY DAY BEFORE BREAKFAST FOR DIABETES. TAKE 30 MINUTES BEFORE EATING. 90 Nov [id number] Sep 05, 2019 SIMON NEELY LANCET,SOFTCLIX Active USE LANCET BIW FOR TESTING BL OOD GLUCOSE DIRECTED 100 Jun 06, 2020 [id number] Jun 07, 2019 SIMON NEELY C LITHIUM CARBONATE 300MG CAP Active TAKE 1 CAPSU LE BY MOUTH EVERY MORNING AND TAKE 3 CAPSULES BY MOUTH AT BEDTIME FOR MOOD. MUST MAKE AN APPT OR WILL TAPER AND DISCONTINUE MEDICATIONS 120 February 12, 2021 [id number] Mar 04, 2020 ELOISE BAUTISTA [facility] LITHIUM CARBONATE 300MG CAP Discontinued TAKE 1 CAPSU LE BY MOUTH EVERY MORNING AND TAKE 3 CAPSULES BY MOUTH AT BEDTIME FOR MOOD. MUST MAKE AN APPT OR WILL TAPER AND DISCONTINUE MEDICATIONS 120 Aug 06, 2020 [id number] Dec 16, 2019 [facility] LITHIUM CARBONATE 300MG CAP Discontinued TAKE 1 CAPSU LE BY MOUTH EVERY MORNING AND TAKE 3 CAPSULES BY MOUTH AT BEDTIME FOR MOOD. MUST MAKE AN APPT OR WILL TAPER AND DISCONTINUE MEDICATIONS 120 Jun 10, 2020 [id number] Jul 19, 2019 [facility] LITHIUM CARBONATE 300MG CAP Discontinued TAKE 1 CAPSU LE BY MOUTH EVERY MORNING AND TAKE 3 CAPSULES BY MOUTH AT BEDTIME FOR MOOD. MUST MAKE AN APPT OR WILL TAPER AND DISCONTINUE MEDICATIONS 120 Jul 03, 2019 [id number] Jun 03, 2019 [facility] LITHIUM CARBONATE 300MG CAP Discontinued TAKE 1 CAPSU LE BY MOUTH EVERY MORNING AND TAKE 3 CAPSULES BY MOUTH AT BEDTIME FOR MOOD. MUST MAKE AN APPT OR WILL TAPER AND DISCONTINUE MEDICATIONS 120 Mar 23, 2019 [id number] February 21, 2019 [facility] LITHIUM CARBONATE 300MG CAP Discontinued TAKE 1 CAPSU LE BY MOUTH EVERY MORNING AND TAKE 3 CAPSULES BY MOUTH AT BEDTIME FOR MOOD. 120 Dec 18, 2019 [id number] Jan 11, 2019 [facility] LITHIUM CARBONATE 300MG TAB,SA Discontinued TAKE ONE [...] SPLIT, OR CHEW. 234 May 31, 2019 [id number] Apr 01, 2019 [facility] NO KNOWN NON-VA MEDS MISCELLANEOUS Non-VA Non-VA Documented by: MICHELLE BARTHOLOMEW Docume nted at: [facility] NO KNOWN NON-VA MEDS MISCELLANEOUS Non-VA Non-VA Documented by: GALILEA BENÍTEZ Docume nted at: [facility] OXYCODONE HCL 5MG TAB No n-VA TAKE ONE TABLET BY MOUTH EVERY 6 HOURS NEEDED Non-VA Docume nted by: SIMON NEELYume nted at: [facility] QUETIAPINE FUMARATE 100MG TAB Active TAKE ONE-HALF TABL ET BY MOUTH AT BEDTIME 15 Mar 25, 2021 [id number] Mar 24, 2020 ELOISE BAUTISTA [facility] TRAMADOL HCL 50MG TAB No n-VA TAKE ONE TABLET BY MOUTH EVERY 6 HOURS NEEDED Non-VA Docume nted by: SIMON NEELY Docume nted at: [facility] TRAZODONE HCL 100MG TAB Discontinued TAKE FOUR TABLET S BY MOUTH AT BEDTIME FOR MOOD OR SLEEP. 120 February 12, 2021 [id number] Mar 01, 2020 ELOISE BAUTISTA [facility] TRAZODONE HCL 100MG TAB Discontinued TAKE FOUR TABLET S BY MOUTH AT BEDTIME FOR MOOD OR SLEEP. 120 Aug 06, 2020 [id number] February 10, 2020 [facility] TRAZODONE HCL 100MG TAB Discontinued TAKE FOUR TABLET S BY MOUTH AT BEDTIME FOR MOOD OR SLEEP. 120 Jun 03, 2020 [id number] Jul 29, 2019 [facility] TRAZODONE HCL 100MG TAB Discontinued TAKE FOUR TABLET S BY MOUTH AT BEDTIME FOR MOOD OR SLEEP. 120 February 05, 2020 [id number] May 06, 2019 KIMBERLY BANG [facility] TRAZODONE HCL 100MG TAB Discontinued TAKE FOUR TABLET S BY MOUTH AT BEDTIME FOR MOOD OR SLEEP. 120 Sep 14, 2019 [id number] Jan 07, 2019 KIMBERLY BANG [facility] TROSPIUM CL 20MG TAB Active TAKE ONE TABLET BY MOUTH TWO TIMES A DAY FOR BLADDER. TAKE ON AN EMPTY STOMACH OR AT LEAST ONE HOUR BEFORE FOOD. PER DR. BUTLER 180 January 23, 2021 [id number] Mar 16, 2020 SIMON NEELY [facility] TROSPIUM CL 20MG TAB Discontinued TAKE ONE TABLET BY MOUTH TWO TIMES A DAY FOR BLADDER. TAKE ON AN EMPTY STOMACH OR AT LEAST ONE HOUR BEFORE FOOD. PER DR. BUTLER 180 Apr 01, 2020 [id number] Dec 17, 2019 SIMON NEELY [facility] VENLAFAXINE HCL 75MG 24HR CAP,SA Active TAKE 3 CAPSULES BY MOUTH ONCE A DAY FOR MOOD. TAKE WITH FOOD. 90 February 12, 2021 [id number] Mar 04, 2020 Arlette BAUTISTA [facility] VENLAFAXINE HCL 75MG 24HR CAP, Discontinued TAKE 3 CAPSULES BY MOUTH ONCE A DAY FOR MOOD. TAKE WITH FOOD. 90 Aug 06, 2020 [id number] Jan 05 0 KANG ZAYAS [facility] VENLAFAXINE HCL 75MG 24HR CAP, Discontinued TAKE 3 CAPSULES BY MOUTH ONCE A DAY FOR MOOD. TAKE WITH FOOD. Aug 28, 2019 [id number] Aug 01 9 KIMBERLY TARIQ [facility] VENLAFAXINE HCL 75MG 24HR CAP, Discontinued TAKE 3 CAPSULES BY MOUTH ONCE A DAY FOR MOOD. TAKE WITH FOOD. February 05, 2020 [id number] Jul 01 9 KIMBERLY TARIQ [facility] Problems (Conditions): All historical and current Section Date Range: From patient's date of to the date document was create d. This section includes a list of Problems (Conditions) know n to [place] for the patient. It includes both active and inacti ve problems (conditions). The data comes from all [place] treatment facilities. Problem Status Problem Code Date of Onset Date of Resolution Comm ent(s) Provider Source Abnormality of Gait (ICD-9-CM 781.2) Active 781.2 GALILEA BENÍTEZ [facility] Achilles bursitis or tendinitis (ICD-9-CM 726.71) Active 726.71 [facility] Acquired right hallux valgus Active [id number] [facility] Ankle ulcer due to type 2 diabetes mellitus ([place] [address] [id number]) Active [id number] SIMON NEELY [facility] Bereavement (SNOMED CT 49954387) Active V62.89 [facility] Bilateral plantar fasciitis (SNOMED CT [id number]) Ac tive [id number] [facility] BIPOLAR AFFECTIVE NOS Active 296.7 DEMETRA UREÑA [facility] Bipolar disorder (SNOMED CT 14771904) Active 95821006 [facility] Bunion Active 727.1 MONICA MADDOX [facility] Carpal Tunnel Syndrome * (ICD-9-CM 354.0) Active 354.0 Oct 16, 2002 Entered By: GALILEA BENÍTEZ Comment: rt GALILEA BENÍTEZ [facility] Cerebral Palsy NEC (ICD-9-CM 343.8) Active 343.8 RADHASEPIDEH [facility] Depression * (ICD-9-CM 311./300.4) Active 311. SIMON NEELY [facility] Derangement of meniscus Active 717.5 J 2001 Entered By: DEMETRA UREÑA Comment: left knee, arthroscopy 11/23 DEMETRA UREÑA [facility] Diabetes mellitus (SNOMED CT 40782048) Active 33200692 SIMON NEELY [facility] Difficulty balancing Active 181186023 [facility] Elevated Liver Function Tests (ICD-9-CM 794.8) Active 794.8 SIMON NEELY [facility] Enthesopathy of ankle and tarsus (ICD-9-CM 726.70/726.79) Active 72 6.70 BECCA JONES [facility] Flat foot Active 734. MONICA MADDOX [facility] GERD * (ICD-9-CM 530.81) Active 530.81 SIMON NEELY [facility] Hip Pain (ICD-9-CM 719.45) Active 719.45 SIMON YA [facility] Hyperkeratosis Active 701.1 [facility] Hyperlipidemia * (ICD-9-CM 272.4) Active 272.4 [facility] Hypertension * (ICD-9-CM 401.9) Active 401.9 GALILEA BENÍTEZ [facility] Hypertension * (ICD-9-CM 401.9) Active 401.9 [facility] Insomnia * (ICD-9-CM 780.52) Active 780.52 [facility] Joint Pain Forearm Active 719.43 MEGANLEONIDAS S D[facility]ION Cid [facility] Lower Leg Injury NOS Active 959.7 MEGANSHARRI Urbina S [facility] Morbid Obesity * (ICD-9-CM 278.01) Active 278.[address] [facility] Obesity * (ICD-9-CM 278.00) Active 278.00 GALILEA WEST [facility] Onychomycosis (SNOMED CT 088383134) Active 110.1 [facility] Osteoarthosis Shoulder Active 715.91 MEGANVERNELL D[facility]ION [facility]id [facility] Pain in joint involving shoulder region (ICD-9-CM 719.41) Active 71 9.41 [facility] Routine Gynecological examination Active V72.31 [facility] Sciatica * (ICD-9-CM 724.3) Active 724.3 [facility]AMP [facility] Unspecified chest pain * (ICD-9-CM 786.50) Active 786.50 MARK VIVAS [facility] Unsteady when walking Active 25583603 HARRISON NEELY [facility] Urinary Incontinence * (ICD-9-CM 788.30) Active 788.30 JJ GAYTAN [facility] MUSCLE SPASM Inactive 728.85 May 29, 2007 Sep 02 Entered By: TONY BENÍTEZ Comment: shoulders TONY BENÍTEZ [facility] Radiology Reports: +/- 30 days of the encounter No Data Provided for This Section Pathology Reports: +/- 30 days of the encounter No Data Provided for This Section Encounter Notes: All associated encounter notes This section contains the clinical notes associated to the Encounter. Date/Time Encounter Note(s) Provider Source Mar 17, 2020 11:24 AM ADMINISTRATIVE NOTE: LOCAL TITLE: [place]-ADMINISTRATIVE NOTE (BP,O) STANDARD TITLE: ADMINISTRATIVE NOTE DATE OF NOTE: MAR 17, 2020@11:24 ENTRY DATE: MAR 17, 2020@11:25 AUTHOR: BRANDEN VIRK EXP COSIGNER: URGENCY: STATUS: COMPLETED [place]-ADMINISTRATIVE NOTE (BP,O) Has ADDENDA called and reports t6hat she has been waiting 3 weeks for someone to call her and now she is having additional symptoms. Dr. Bautista had attempted to contact the on 03/12/2020 and a message was left. Attempted to call the again a message was left that this was the 2nd attempt to contact her . [place] asked to call and leave us a detailed message as to what is going on with the trazodone and we would get the informaiton to Dr. Bautista. /susie/ BRANDEN VIRK, RN, BSN computer aided design technician Signed: 03/17/2020 11:29 Receipt Acknowledged By: 03/17/2020 13:18 /susie/ ELOISE BAUTISTA PSYCHIATRIST 03/17/2020 ADDENDUM STATUS: COMPLETED Please ask bulk sausage casing tier off to reach out and offer earlier appointment via [facility] than the one scheduled in April. Thank you. /susie/ ELOISE BAUTISTA PSYCHIATRIST Signed: 03/17/2020 13:19 Receipt Acknowledged By: 03/24/2020 08:34 /abhinav VIRK, RN, BSN computer aided design technician 03/18/2020 ADDENDUM STATUS: COMPLETED Contacted [facility] for Dr. Bautista's first available appointment. 03/24/2020 at 8030 through [facility]. Attempted to contact [place] on 03/17/2020 to offer appointment to after she contacted the 's Crisis Line without success. Awaiting for to confirm appointment. /es/ KARRIE SCHMITZ Suicide Prevention Egg And Spice Mixer Signed: 03/18/2020 08:50 Receipt Acknowledged By: 03/19/2020 13:39 /susie/ LUCIEN FASUT MSA 03/18/2020 ADDENDUM STATUS: COMPLETED Left message for to return call for scheduling [facility] appt with Dr Bautista for next week. (03/24/20@0830) /susie/ LUCIEN FAUST MSA Signed: 03/18/2020 08:58 03/24/2020 ADDENDUM STATUS: COMPLETED has been scheduled for 03/24/2020 08:30 [facility] 2 /es/ BRANDEN VIRK, RN, BSN computer aided design technician Signed: 03/24/2020 08:35 BRANDEN VIRK [facility]
--- OUTSIDE RECORDS SUMMARY | 2020-03-28 08:20 | XMS REPORT | Encounter Summary ---
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 Paint Name Role Phone FLORINDASIMON PCP Unavailable Insurance [...] PART A Aug 25, 2011 PART A [id number] GADBERRY,CHARLANNE PATIENT MEDICARE (WNR) MEDICARE (M) PART B Aug 25, 2011 PART B [id number] GADBERRY,CHARLANNE PATIENT MEDICARE (WNR) MEDICARE (M) PART A Aug 25, 2011 PART A [id number] GADBERRY,CHARLANNE PATIENT MEDICARE (WNR) MEDICARE (M) PART B Aug 25, 2011 PART B [id number] GADBERRY,CHARLANNE PATIENT MEDICARE (WNR) MEDICARE (M) PART A Aug 25, 2011 PART A [id number] SANDRA MORELOS PATIENT MEDICARE (WNR) MEDICARE (M) PART B Aug 25, 2011 PART B [id number] SANDRA MORELOS PATIENT MEDICARE PART D (WNR) MEDICARE (M) PART D Sep 25, 2012 PART D [id number] JAMESALEXLEILALARISSAAIME PATIENT Selected Encounter This section includes the information on record at [place] for the Encounter. Date/Time Encounter Type Encounter Description Reason Provider Source Jan 23, 2020 12:00 AM Outpatient Encounter EVENT (HISTORICAL) [facility], [facility] 15 IHE Encounter Template Text not used by [place] Assessments - Encounter Diagnoses No Data Provided for This Section Plan of Treatment: Future Appointments (+ 6 months) and Future Tests (+/- 45 day s) The Plan of Treatment section includes future care activities for the patient fr om all [place] treatment facilities. This section includes future appointments and fu ture orders which are active, pending or scheduled. Future Appointments This section includes appointments that were scheduled t o occur 6 months from the date of the Encounter, up to a maximum of 20 appointme nts. The data comes from all [place] treatment facilities. Appointment Date/Time Appointment Type Appointment Facili ty Name February 12, 2020 02:00 PM AMBULATORY - PSYCHIATRY [facility] Mar 24, 2020 08:30 AM AMBULATORY [facility]RY [facility] Apr 16, 2020 10:00 AM AMBULATORY PS[facility]RY [facility] May 12, 2020 10:00 AM AMBULATORY PS[facility]CHIATRY [facility] Surgical Procedures: All associated to [...] Use (All prior to enco unter date) No Data Provided for This Section Advance Directives: All historical and current Section Date Range: From patient's date of to the date document was create d. This section includes ALL of a patient's completed or amen ded [place] Advance and Rescinded Directives. The entries below indicate that a direc tive exists for the patient, but an actual copy is not included with this docume nt. The data comes from all [place] facilities. Date Advance Directives Provider Source Sep 15, 2009 ADVANCE DIRECTIVE DISCUSSION JADE VARMA [facility] Jul 21, 2006 ADVANCE DIRECTIVE [facility] Jul 12, 2006 ADVANCE DIRECTIVE DISCUSSION [facility] Allergies and Adverse Reactions (ADRs): All historical and current Section Date Range: From patient's date of to the date document was create d. This section includes Allergies and Adverse Reactions (ADR s) on record with [facility] for the patient. The data comes from a ll [place] treatment facilities. It does not list Allergies/ADRs that were removed or entered in error. Some allergies/ADRs may be reported in t he Immunization section. Allergen Event Date Event Type Reaction(s) Severity Source ENALAPRIL Aug 22, 2017 Propensity to adverse reactions to drug (diso rder) [facility] ENALAPRIL May 04, 2007 Propensity to adverse reactions to drug ( disorder) Cough [facility] LEVAQU[place] Aug 22, 2017 Propensity to adverse reactions to drug (diso rder) [facility] L[place]QU[place] Oct 08, 2015 Propensity to adverse reactions to drug (disorder) Eruption [facility], [facility] 15 LISINOPRIL Aug 22, 2017 Propensity to adverse reactions to drug (diso rder) [facility] LISINOPRIL Jan 16, 2007 Propensity to adverse reactions to drug (disorder) Cough [facility] NIAC[place] Aug 22, 2017 Propensity to adverse reactions to drug (diso rder) [facility] NIACIN Oct 23, 2008 Propensity to adverse reactions to drug ( disorder) Eruption [facility], [facility] 15 Medications: VA dispensed (-15 months) and Non-VA Documented (Obtained Outside V A) Section Date Range: 1) prescriptions processed by a [place] pharmacy in the last 15 m [facility], and 2) all medications recorded in the [place] medical record as "non-VA medic ations". Pharmacy terms refer to [place] pharmacy's work on prescriptions. VA patient s are advised to take their medications as instructed by their health care team. The data comes from all [place] treatment facilities. Glossary of Pharmacy Terms:Active = A prescription that can be filled at the local [place] pharmacy.Active: On Hold = An active prescription that will not be filled until pharmacy resolves the issue.Active: Susp = An active prescription that is not scheduled to be filled yet.Clinic Order = A medication received during a visit to a [place] clinic or emergency department (currently not available).Discontinued = A prescription stopped by a [place] provider. It is no longer available to be filled. = A prescription which is too old to fill. This does not refer to the expiration date of the medication in the container. Non-VA = A medication that came from someplace other than a VA pharmacy. This may be a prescription from either the [place] or other providers that was filled outside the [place]. Or, it may be an over the [...] BLOOD GLUCOSE TESTING 50 Jun 06, 2020 [id number] February 21, 2020 SIMON NEELY AMLODIPINE BESYLATE 10MG TAB Active TAKE ONE TABLET BY MOUTH EVERY MORNING 90 January 23, 2021 [id number] Jan 23, 2020 SIMON NEELY AMLODIPINE BESYLATE 10MG TAB Discontinued TAKE ONE TA BLET BY MOUTH EVERY MORNING 90 Nov 27, 2019 [id number] Oct 21, 2019 SIMON NEELY ATORVASTATIN CA 20MG TAB Active TAKE ONE-HALF T ABLET BY MOUTH AT BEDTIME FOR CHOLESTEROL - REPORT ANY UNEXPLAINED MUSCLE PAIN/WEAKNESS TO YOUR PROVIDER TAKE IN PLACE OF CRESTOR, VA DOESNT SUPPLY CRESTOR, FOR CHOLESTEROL - REPORT ANY UNEXPLAINED MUSCLE PAIN/WEAKNESS TO YOUR PROVIDER TAKE IN PLACE OF CRESTOR, VA DOESNT SUPPLY CRESTOR, 45 January 23, 2021 [id number] Jan 23, 2020 HARRISON NEELY ATORVASTATIN CA 20MG TAB Discontinued TAKE ONE-HALF T ABLET BY MOUTH AT BEDTIME FOR CHOLESTEROL - REPORT ANY UNEXPLAINED MUSCLE PAIN/WEAKNESS TO YOUR PROVIDER TAKE IN PLACE OF CRESTOR, [facility] DOESNT SUPPLY CRESTOR, FOR CHOLESTEROL - REPORT ANY UNEXPLAINED MUSCLE PAIN/WEAKNESS TO YOUR PROVIDER TAKE IN PLACE OF CRESTOR, VA DOESNT SUPPLY CRESTOR, 45 Dec 07, 2019 [id number] Mar 01, 2019 HARRISON NEELY BRIEF,SUPER PLUS ABSORB WITH BARRIERS UNDERWEAR X-LARGE ATTE NDS Active USE DIRECTED DIRECTED FOR INCONTINENCE 56 Nov 04, 2020 [id number] Nov 09, 2019 SIMON NEELY BRIEF,SUPER PLUS ABSORB WITH BARRIERS UNDERWEAR X-LARGE ATTE NDS Discontinued USE DIRECTED DIRECTED FOR INCONTINENCE 56 Apr 01, 2020 [id number] Aug 06, 2019 SIMON NEELY CBREYMUNDO GLIPIZIDE 5MG TAB Active TAKE ONE TABLET BY M OUTH EVERY DAY BEFORE BREAKFAST FOR DIABETES. TAKE 30 MINUTES BEFORE EATING. 90 Apr 22, 2020 [id number] February 12, 2020 SIMON NEELY GLIPIZIDE 5MG TAB Discontinued TAKE ONE TABLET BY M OUTH EVERY DAY BEFORE BREAKFAST FOR DIABETES. TAKE 30 MINUTES BEFORE EATING. 90 Feb 242019 [id number] February 12, 2020 SIMON NEELY CBREYMUNDO GLIPIZIDE 5MG TAB Discontinued TAKE ONE TABLET BY M OUTH EVERY DAY BEFORE BREAKFAST FOR DIABETES. TAKE 30 MINUTES BEFORE EATING. 90 January [id number] Nov 24, 2019 SIMON NEELY CBREYMUNDO GLIPIZIDE 5MG TAB Discontinued TAKE ONE TABLET BY M OUTH EVERY DAY BEFORE BREAKFAST FOR DIABETES. TAKE 30 MINUTES BEFORE EATING. 90 Nov [id number] Sep 05, 2019 SIMON NEELY LANCET,SOFTCLIX Active USE LANCET BIW FOR TESTING BL OOD GLUCOSE DIRECTED 100 Jun 06, 2020 [id number] Jun 07, 2019 SIMON NEELY C LITHIUM CARBONATE 300MG CAP Active TAKE 1 CAPSU LE BY MOUTH EVERY MORNING AND TAKE 3 CAPSULES BY MOUTH AT BEDTIME FOR MOOD. MUST MAKE AN APPT OR WILL TAPER AND DISCONTINUE MEDICATIONS 120 February 12, 2021 [id number] Mar 04, 2020 [facility] LITHIUM CARBONATE 300MG CAP Discontinued TAKE 1 CAPSU LE BY MOUTH EVERY MORNING AND TAKE 3 CAPSULES BY MOUTH AT BEDTIME FOR MOOD. MUST MAKE AN APPT OR WILL TAPER AND DISCONTINUE MEDICATIONS 120 Aug 06, 2020 [id number] Dec 16, 2019 [facility]AS [facility] LITHIUM CARBONATE 300MG CAP Discontinued TAKE 1 CAPSU LE BY MOUTH EVERY MORNING AND TAKE 3 CAPSULES BY MOUTH AT BEDTIME FOR MOOD. MUST MAKE AN APPT OR WILL TAPER AND DISCONTINUE MEDICATIONS 120 Jun 10, 2020 [id number] Jul 19, 2019 [facility]LY TARIQ [facility] LITHIUM CARBONATE 300MG CAP Discontinued TAKE 1 CAPSU LE BY MOUTH EVERY MORNING AND TAKE 3 CAPSULES BY MOUTH AT BEDTIME FOR MOOD. MUST MAKE AN APPT OR WILL TAPER AND DISCONTINUE MEDICATIONS 120 Jul 03, 2019 [id number] Jun 03, 2019 KIMBERLY TARIQ Jose Roberto [facility] LITHIUM CARBONATE 300MG CAP Discontinued TAKE 1 CAPSU LE BY MOUTH EVERY MORNING AND TAKE 3 CAPSULES BY MOUTH AT BEDTIME FOR MOOD. MUST MAKE AN APPT OR WILL TAPER AND DISCONTINUE MEDICATIONS 120 Mar 23, 2019 [id number] February 21, 2019 [facility] LITHIUM CARBONATE 300MG CAP Discontinued TAKE 1 CAPSU LE BY MOUTH EVERY MORNING AND TAKE 3 CAPSULES BY MOUTH AT BEDTIME FOR MOOD. 120 Dec 18, 2019 [id number] Jan 11, 2019 [facility] LITHIUM CARBONATE 300MG TAB,SA Discontinued [...] SPLIT, OR CHEW. 234 May 31, 2019 [id number] Apr 01, 2019 KIMBERLY BANG [facility] NO KNOWN NON-VA MEDS MISCELLANEOUS Non-VA Non-VA Documented by: MICHELLE BARTHOLOMEW Docume nted at: [facility] NO KNOWN NON-VA MEDS MISCELLANEOUS Non-VA Non-VA Documented by: GALILEA BENÍTEZ Docume nted at: [facility] OXYCODONE HCL 5MG TAB No n-VA TAKE ONE TABLET BY MOUTH EVERY 6 HOURS NEEDED Non-VA Docume nted by: SIMON NEELY Docume nted at: [facility] QUETIAPINE FUMARATE 100MG TAB Active TAKE ONE-HALF TABL ET BY MOUTH AT BEDTIME 15 Mar 25, 2021 [id number] Mar 24, 2020 ELOISE HUYNH [facility] TRAMADOL HCL 50MG TAB No n-VA TAKE ONE TABLET BY MOUTH EVERY 6 HOURS NEEDED Non-VA Docume nted by: SIMON NEELY Docume nted at: [facility] TRAZODONE HCL 100MG TAB Discontinued TAKE FOUR TABLET S BY MOUTH AT BEDTIME FOR MOOD OR SLEEP. 120 February 12, 2021 [id number] Mar 01, 2020 ELOISE HUYNH [facility] TRAZODONE HCL 100MG TAB Discontinued TAKE FOUR TABLET S BY MOUTH AT BEDTIME FOR MOOD OR SLEEP. 120 Aug 06, 2020 [id number] February 10, 2020 KANG ZAYAS [facility] TRAZODONE HCL 100MG TAB Discontinued TAKE FOUR TABLET S BY MOUTH AT BEDTIME FOR MOOD OR SLEEP. 120 Jun 03, 2020 [id number] Jul 29, 2019 [facility]LY [facility]ANG [facility] TRAZODONE HCL 100MG TAB Discontinued TAKE FOUR TABLET S BY MOUTH AT BEDTIME FOR MOOD OR SLEEP. 120 February 05, 2020 [id number] May 06, 2019 [facility]LY [facility]ANG [facility] TRAZODONE HCL 100MG TAB Discontinued TAKE FOUR TABLET S BY MOUTH AT BEDTIME FOR MOOD OR SLEEP. 120 Sep 14, 2019 [id number] Jan 07, 2019 [facility]LY BANG [facility] TROSPIUM CL 20MG TAB Active TAKE ONE TABLET BY MOUTH TWO TIMES A DAY FOR BLADDER. TAKE ON AN EMPTY STOMACH OR AT LEAST ONE HOUR BEFORE FOOD. PER DR. BUTLER 180 January 23, 2021 [id number] Mar 16, 2020 SIMON NEELY [facility] TROSPIUM CL 20MG TAB Discontinued TAKE ONE TABLET BY MOUTH TWO TIMES A DAY FOR BLADDER. TAKE ON AN EMPTY STOMACH OR AT LEAST ONE HOUR BEFORE FOOD. PER DR. BUTLER 180 Apr 01, 2020 [id number] Dec 17, 2019 SIMON NEELY [facility] VENLAFAXINE HCL 75MG 24HR CAP,SA Active TAKE 3 CAPSULES BY MOUTH ONCE A DAY FOR MOOD. TAKE WITH FOOD. 90 February 12, 2021 [id number] Mar 04, 2020 Arlette HUYNH [facility] VENLAFAXINE HCL 75MG 24HR CAP,SA Discontinued TAKE 3 CAPSULES BY MOUTH ONCE A DAY FOR MOOD. TAKE WITH FOOD. 90 Aug 06, 2020 [id number] Jan 05 0 KANG ZAYAS [facility] VENLAFAXINE HCL 75MG 24HR CAP,SA Discontinued TAKE 3 CAPSULES BY MOUTH ONCE A DAY FOR MOOD. TAKE WITH FOOD. 90 Aug 28, 2019 [id number] Aug 01 9 KIMBERLY TARIQ [facility] VENLAFAXINE HCL 75MG 24HR CAP,SA Discontinued TAKE 3 CAPSULES BY MOUTH ONCE A DAY FOR MOOD. TAKE WITH FOOD. 90 February 05, 2020 [id number] Jul 01 9 KIMBERLY TARIQ [facility] Problems (Conditions): All historical and current Section Date Range: From patient's date of to the date document was create d. This section includes a list of Problems (Conditions) know n to [place] for the patient. It includes both active and inacti ve problems (conditions). The data comes from all [place] treatment facilities. Problem Status Problem Code Date of Onset Date of Resolution Comm ent(s) Provider Source Abnormality of Gait (ICD-9-CM 781.2) Active 781.2 GALILEA BENÍTEZ [facility] Achilles bursitis or tendinitis (ICD-9-CM 726.71) Active 726.71 RILEY GALVAN [facility] Acquired right hallux valgus Active [id number] RILEY GALVAN [facility] Ankle ulcer due to type 2 diabetes mellitus ([place] [address] [id number]) Active [id number] SIMON NEELY [facility] Bereavement (SNOMED CT 98099202) Active V62.89 SIMON NEELY [facility] Bilateral plantar fasciitis (SNOMED CT [id number]) Ac tive [id number] RILEY [facility]ALVAN [facility] BIPOLAR AFFECTIVE NOS Active 296.7 DEMETRA UREÑA [facility] Bipolar disorder (SNOMED CT 10638485) Active 76275600 KIMBERLY BANG [facility] Bunion Active 727.1 MONICA MADDOX [facility] Carpal Tunnel Syndrome * (ICD-9-CM 354.0) Active 354.0 Oct 16, 2002 Entered By: GALILEA BENÍTEZ Comment: rt GALILEA BENÍTEZ [facility] Cerebral Palsy NEC (ICD-9-CM 343.8) Active 343.8 EDDIEDemarcoSEPIDEH [facility] Depression * (ICD-9-CM 311./300.4) Active 311. SIMON NEELY [facility] Derangement of meniscus Active 717.5 J an 2001 Entered By: DEMETRA UREÑA Comment: left knee, arthroscopy 11/23 DEMETRA UREÑA [facility] Diabetes mellitus (SNOMED CT 53862605) Active 67791959 SIMON NEELY [facility] Difficulty balancing Active 532842169 HARRISON NEELY [facility] Elevated Liver Function Tests (ICD-9-CM 794.8) Active 794.8 SIMON NEELY [facility] Enthesopathy of ankle and tarsus (ICD-9-CM 726.70/726.79) Active 72 6.70 BECCA JONES [facility] Flat foot Active 734. MONICA MADDOX [facility] GERD * (ICD-9-CM 530.81) Active 530.81 SIMON NEELY [facility] Hip Pain (ICD-9-CM 719.45) Active 719.45 [facility]ON YA [facility] Hyperkeratosis Active 701.1 MONICA MADDOX ROBE RT Cid [facility] Hyperlipidemia * (ICD-9-CM 272.4) Active 272.4 SIMON NEELY [facility] Hypertension * (ICD-9-CM 401.9) Active 401.9 GALILEA BENÍTEZ [facility] Hypertension * (ICD-9-CM 401.9) Active 401.9 SIMON NEELY [facility] Insomnia * (ICD-9-CM 780.52) Active 780.52 SIMON THOMAS [facility] Joint Pain Forearm Active 719.43 LEONIDAS GUZMAN [facility] Lower Leg Injury NOS Active 959.7 SHARRI GUZMAN [facility] Morbid Obesity * (ICD-9-CM 278.01) Active 278.01 [facility] Obesity * (ICD-9-CM 278.00) Active 278.00 GALILEA WEST [facility] Onychomycosis (SNOMED CT 822928542) Active 110.1 SIMON NEELY DARION Jose Roberto [facility] Osteoarthosis Shoulder Active 715.91 MEGAN,MATT KEENAN Nichols DARION Cid [facility] Pain in joint involving shoulder region (ICD-9-CM 719.41) Active 71 9.41 SIMON NEELY [facility] Routine Gynecological examination Active V72.31 SIMON NEELY [facility] Sciatica * (ICD-9-CM 724.3) Active 724.3 SIMON CAMP [facility] Unspecified chest pain * (ICD-9-CM 786.50) Active 786.50 MARK VIVAS [facility] Unsteady when walking Active [id number] HARRISON NEELY [facility] Urinary Incontinence * (ICD-9-CM 788.30) Active 788.30 JJ GAYTAN [facility] MUSCLE SPASM Inactive 728.85 May 29, 2007 Sep 02 Entered By: TONY BENÍTEZ Comment: shoulders TONY BENÍTEZ [facility] Radiology Reports: +/- 30 days of the encounter No Data Provided for This Section Pathology Reports: +/- 30 days of the encounter No Data Provided for This Section Encounter Notes: All associated encounter notes No Data Provided for This Section
--- OUTSIDE RECORDS SUMMARY | 2020-03-28 08:20 | XMS REPORT | Encounter Summary ---
Author Author [facility] Organization [facility] Affai rs Address [address] [place] [address] Phone Unavailable Care Team Providers Care Cfo Name Role Phone FLORINDA SIMON PCP Unavailable [...] PART A Aug 25, 2011 PART A [id number] GADBERRY,CHARLANNE PATIENT MEDICARE (WNR) MEDICARE (M) PART B Aug 25, 2011 PART B [id number] GADBERRY,CHARLANNE PATIENT MEDICARE (WNR) MEDICARE (M) PART A Aug 25, 2011 PART A [id number] GADBERRY,CHARLANNE PATIENT MEDICARE (WNR) MEDICARE (M) PART B Aug 25, 2011 PART B [id number] GADBERRY,CHARLANNE PATIENT MEDICARE (WNR) MEDICARE (M) PART A Aug 25, 2011 PART A [id number] SANDRA MORELOS PATIENT MEDICARE (WNR) MEDICARE (M) PART B Aug 25, 2011 PART B [id number] SANDRA MORELOS PATIENT MEDICARE PART D (WNR) MEDICARE (M) PART D Sep 25, 2012 PART D [id number] SANDRA WHITMAN PATIENT Selected Encounter This section includes the information on record at [place] for the Encounter. Date/Time Encounter Type Encounter Description Reason Provider Source Mar 02, 2020 11:42 AM Outpatient Encounter TELEPHONE MH ICD-1 0-CM F31.32 Bipolar disorder, current episode depressed, moderate with Provider Comments: Bipolar disorder ([facility] [id number]) EMBER JARVIS [facility] IHE Encounter Template Text not used by [place] Assessments - Encounter Diagnoses This section includes the primary and secondary diag noses documented for the Encounter. Date/Time Primary/Secondary Diagnosis Diagnosis Name Provider Source Mar 02, 2020 11:42 AM PRIMARY Bipolar disorder, current episode depressed, moderate EMBER JARVIS [facility] Mar 02, 2020 11:42 AM SECONDARY Other specified counseling EMBER PATEL [facility] Plan of Treatment: Future Appointments (+ 6 months) and Future Tests (+/- 45 day s) The Plan of Treatment section includes future care activities for the patient fr om all [place] treatment facilities. This section includes future appointments and fu ture orders which are active, pending or scheduled. Future Appointments This section includes appointments that were scheduled t o occur 6 months from the date of the Encounter, up to a maximum of 20 appointme nts. The data comes from all [place] treatment facilities. Appointment Date/Time Appointment Type Appointment Facili ty Name Mar 24, 2020 08:30 AM AMBULATORY - PSYCHIATRY DARION Cid [facility] Apr 16, 2020 10:00 AM AMBULATORY - PSYCHIATRY DARION MARTINEZ [facility] May 12, 2020 10:00 AM AMBULATORY - PSYCHIATRY [facility] Surgical Procedures: All associated to the [...] or tobacco -related health factor, from the [place] facility where the Encounter took place. Date/Time Current Smoking Status Comment Facility Dec 28, 2015 10:28 AM CURRENT NON-SMOKER DARION Jose Roberto [facility] Tobacco Use History This section includes a history of the smoking, or tobacco -related health factors, that were collected on or before the date of the Encoun ter. The data comes from the [place] facility where the Encounter took place. Date/Time Smoking Status/Tobacco Use Comment Facil ity Dec 28, 2015 10:28 AM LIFETIME NON-TOBACCO USER [facility] May 14, 2015 10:33 AM CURRENT NON-SMOKER DARION Cid [facility] May 14, 2015 10:33 AM LIFETIME NON-TOBACCO USER [place] Jose Roberto [facility] Dec 08, 2014 10:25 AM CURRENT NON-SMOKER [place] Jose Roberto [facility] Dec 08, 2014 10:25 AM LIFETIME NON-TOBACCO USER [place] Jose Roberto [facility] Oct 20, 2014 09:33 AM CURRENT NON-SMOKER [place] Jose Roberto [facility] Oct 20, 2014 09:33 AM LIFETIME NON-TOBACCO USER [place] Jose Roberto [facility] Jul 22, 2014 09:41 AM CURRENT NON-SMOKER DARION Jose Roberto [facility] Jul 22, 2014 09:41 AM LIFETIME NON-TOBACCO USER D[place] Jose Roberto [facility] February 04, 2014 10:04 AM NON-TOBACCO USER DARION [facility] Dec 16, 2013 11:26 AM CURRENT NON-SMOKER DARION Cid [facility] Dec 16, 2013 11:26 AM LIFETIME NON-TOBACCO USER DARION Cid [facility] Jan 14, 2013 01:14 PM CURRENT NON-SMOKER DARION Cid [facility] Jan 14, 2013 01:14 PM LIFETIME NON-TOBACCO USER DARION Cid [facility] February 14, 2012 09:57 AM CURRENT NON-SMOKER DARION Cid [facility] February 14, 2012 09:57 AM LIFETIME NON-TOBACCO USER DARION Cid [facility] Mar 14, 2011 01:13 PM CURRENT NON-SMOKER DARION Jose Roberto [facility] Mar 14, 2011 01:13 PM LIFETIME NON-TOBACCO USER DARION Jose Roberto [facility] Apr 15, 2010 09:39 AM CURRENT NON-SMOKER DARION Cid [facility] Apr 15, 2010 09:39 AM LIFETIME NON-TOBACCO USER DARION Cid [facility] Mar 09, 2010 02:30 PM CURRENT NON-SMOKER DARION MARTINEZ [facility] Mar 09, 2010 02:30 PM LIFETIME NON-TOBACCO USER DARION MARTINEZ [facility] Nov 06, 2009 10:50 AM CURRENT NON-SMOKER DARION MARTINEZ [facility] Nov 06, 2009 10:50 AM LIFETIME NON-TOBACCO USER DARION MARTINEZ [facility] Advance Directives: All historical and current Section Date Range: From patient's date of to the date document was create d. This section includes ALL of a patient's completed or amen ded [place] Advance and Rescinded Directives. The entries below indicate that a direc tive exists for the patient, but an actual copy is not included with this docume nt. The data comes from all [place] facilities. Date Advance Directives Provider Source Sep 15, 2009 ADVANCE DIRECTIVE DISCUSSION JADE VARMA [facility] [facility] Jul 21, 2006 ADVANCE DIRECTIVE [facility] Jul 12, 2006 ADVANCE DIRECTIVE DISCUSSION SAV PA[place] Allergies and Adverse Reactions (ADRs): All historical and current Section Date Range: From patient's date of to the date document was create d. This section includes Allergies and Adverse Reactions (ADR s) on record with [place] for the patient. The data comes from a ll [place] treatment facilities. It does not list Allergies/ADRs that were removed or entered in error. Some allergies/ADRs may be reported in t he Immunization section. Allergen Event Date Event Type Reaction(s) Severity Source ENALAPRIL Aug 22, 2017 Propensity to adverse reactions to drug (diso rder) [facility] ENALAPRIL May 04, 2007 Propensity to adverse reactions to drug ( disorder) Cough [facility] LEVAQUIN Aug 22, 2017 Propensity to adverse reactions to drug (diso rder) [facility] LEVAQUIN Oct 08, 2015 Propensity to adverse reactions to drug (disorder) [facility] LISINOPRIL Aug 22, 2017 Propensity to adverse reactions to drug (diso rder) [facility] LISINOPRIL Jan 16, 2007 Propensity to adverse reactions to drug (disorder) Cough [facility] NIACIN Aug 22, 2017 Propensity to adverse reactions to drug (diso rder) [facility] NIACIN Oct 23, 2008 Propensity to adverse reactions to drug ( disorder) Eruption [facility] 15 Medications: VA dispensed (-15 months) and Non-VA Documented (Obtained Outside V A) Section Date Range: 1) prescriptions processed by a VA pharmacy in the last 15 m [facility], and 2) all medications recorded in the VA medical record as "non-VA medic ations". Pharmacy terms refer to VA pharmacy's work on prescriptions. VA patient s are advised to take their medications as instructed by their health care team. The data comes from all [place] treatment facilities. Glossary of Pharmacy Terms:Active = A prescription that can be filled at the local [place] pharmacy.Active: On Hold = An active prescription that will not be filled until pharmacy resolves the issue.Active: Susp = An active prescription that is not scheduled to be filled yet.Clinic Order = A medication received during a visit to a [place] clinic or emergency department (currently not available).Discontinued [...] BLOOD GLUCOSE TESTING 50 Jun 06, 2020 [id number] February 21, 2020 SIMON NEELY AMLODIPINE BESYLATE 10MG TAB Active TAKE ONE TABLET BY MOUTH EVERY MORNING 90 January 23, 2021 [id number] Jan 23, 2020 SIMON NEELY AMLODIPINE BESYLATE 10MG TAB Discontinued TAKE ONE TA BLET BY MOUTH EVERY MORNING 90 Nov 27, 2019 [id number] Oct 21, 2019 SIMON NEELY ATORVASTATIN CA 20MG TAB Active TAKE ONE-HALF T ABLET BY MOUTH AT BEDTIME FOR CHOLESTEROL - REPORT ANY UNEXPLAINED MUSCLE PAIN/WEAKNESS TO YOUR PROVIDER TAKE IN PLACE OF CRESTOR, VA DOESNT SUPPLY CRESTOR, FOR CHOLESTEROL - REPORT ANY UNEXPLAINED MUSCLE PAIN/WEAKNESS TO YOUR PROVIDER TAKE IN PLACE OF CRESTOR, VA DOESNT SUPPLY CRESTOR, 45 January 23, 2021 [id number] Jan 23, 2020 HARRISON NEELY ATORVASTATIN CA 20MG TAB Discontinued TAKE ONE-HALF T ABLET BY MOUTH AT BEDTIME FOR CHOLESTEROL - REPORT ANY UNEXPLAINED MUSCLE PAIN/WEAKNESS TO YOUR PROVIDER TAKE IN PLACE OF CRESTOR, VA DOESNT SUPPLY CRESTOR, FOR CHOLESTEROL - REPORT ANY UNEXPLAINED MUSCLE PAIN/WEAKNESS TO YOUR PROVIDER TAKE IN PLACE OF CRESTOR, VA DOESNT SUPPLY CRESTOR, 45 Dec 07, 2019 [id number] Mar 01, 2019 HARRISON NEELY BRIEF,SUPER PLUS ABSORB WITH BARRIERS UNDERWEAR X-LARGE ATTE NDS Active USE DIRECTED DIRECTED FOR INCONTINENCE 56 Nov 04, 2020 [id number] Nov 09, 2019 SIMON NEELY BRIEF,SUPER PLUS ABSORB WITH BARRIERS UNDERWEAR X-LARGE ATTE NDS Discontinued USE DIRECTED DIRECTED FOR INCONTINENCE 56 Apr 01, 2020 [id number] Aug 06, 2019 SIMON NEELY GLIPIZIDE 5MG TAB Active TAKE ONE TABLET BY M OUTH EVERY DAY BEFORE BREAKFAST FOR DIABETES. TAKE 30 MINUTES BEFORE EATING. 90 Apr 22, 2020 [id number] February 12, 2020 SIMON NEELY GLIPIZIDE 5MG TAB Discontinued TAKE ONE TABLET BY M OUTH EVERY DAY BEFORE BREAKFAST FOR DIABETES. TAKE 30 MINUTES BEFORE EATING. 90 Feb 242019 [id number] February 12, 2020 SIMON NEELY GLIPIZIDE 5MG TAB Discontinued TAKE ONE TABLET BY M OUTH EVERY DAY BEFORE BREAKFAST FOR DIABETES. TAKE 30 MINUTES BEFORE EATING. 90 January [id number] Nov 24, 2019 SIMON NEELY GLIPIZIDE 5MG TAB Discontinued TAKE ONE TABLET BY M OUTH EVERY DAY BEFORE BREAKFAST FOR DIABETES. TAKE 30 MINUTES BEFORE EATING. 90 Nov [id number] Sep 05, 2019 SIMON NEELY LANCET,SOFTCLIX Active USE LANCET BIW FOR TESTING BL OOD GLUCOSE DIRECTED 100 Jun 06, 2020 [id number] Jun 07, 2019 SIMON NEELY C LITHIUM CARBONATE 300MG CAP Active TAKE 1 CAPSU LE BY MOUTH EVERY MORNING AND TAKE 3 CAPSULES BY MOUTH AT BEDTIME FOR MOOD. MUST MAKE AN APPT OR WILL TAPER AND DISCONTINUE MEDICATIONS 120 February 12, 2021 [id number] Mar 04, 2020 [facility] LITHIUM CARBONATE 300MG CAP Discontinued TAKE 1 CAPSU LE BY MOUTH EVERY MORNING AND TAKE 3 CAPSULES BY MOUTH AT BEDTIME FOR MOOD. MUST MAKE AN APPT OR WILL TAPER AND DISCONTINUE MEDICATIONS 120 Aug 06, 2020 [id number] Dec 16, 2019 KANG ZAYAS [facility] LITHIUM CARBONATE 300MG CAP Discontinued TAKE 1 CAPSU LE BY MOUTH EVERY MORNING AND TAKE 3 CAPSULES BY MOUTH AT BEDTIME FOR MOOD. MUST MAKE AN APPT OR WILL TAPER AND DISCONTINUE MEDICATIONS 120 Jun 10, 2020 [id number] Jul 19, 2019 [facility] LITHIUM CARBONATE 300MG CAP Discontinued TAKE 1 CAPSU LE BY MOUTH EVERY MORNING AND TAKE 3 CAPSULES BY MOUTH AT BEDTIME FOR MOOD. MUST MAKE AN APPT OR WILL TAPER AND DISCONTINUE MEDICATIONS 120 Jul 03, 2019 [id number] Jun 03, 2019 [facility] LITHIUM CARBONATE 300MG CAP Discontinued TAKE 1 CAPSU LE BY MOUTH EVERY MORNING AND TAKE 3 CAPSULES BY MOUTH AT BEDTIME FOR MOOD. MUST MAKE AN APPT OR WILL TAPER AND DISCONTINUE MEDICATIONS 120 Mar 23, 2019 [id number] February 21, 2019 [facility] LITHIUM CARBONATE 300MG CAP Discontinued TAKE 1 CAPSU LE BY MOUTH EVERY MORNING AND TAKE 3 CAPSULES BY MOUTH AT BEDTIME FOR MOOD. 120 Dec 18, 2019 [id number] Jan 11, 2019 [facility] LITHIUM CARBONATE 300MG TAB,SA Discontinued TAKE [...] SPLIT, OR CHEW. 234 May 31, 2019 [id number] Apr 01, 2019 [facility] NO KNOWN NON-VA MEDS MISCELLANEOUS Non-VA Non-VA Documented by: MICHELLE BARTHOLOMEW Docume nted at: [facility] NO KNOWN NON-VA MEDS MISCELLANEOUS Non-VA Non-VA Documented by: GALILEA BENÍTEZ Docume nted at: [facility] OXYCODONE HCL 5MG TAB No n-VA TAKE ONE TABLET BY MOUTH EVERY 6 HOURS NEEDED Non-VA Docume nted by: SIMON NEELY Docume nted at: [facility] QUETIAPINE FUMARATE 100MG TAB Active TAKE ONE-HALF TABL ET BY MOUTH AT BEDTIME 15 Mar 25, 2021 [id number] Mar 24, 2020 JASSONNYELOISE [facility] TRAMADOL HCL 50MG TAB No n-VA TAKE ONE TABLET BY MOUTH EVERY 6 HOURS NEEDED Non-VA Docume nted by: SIMON NEELY Docume nted at: [facility] TRAZODONE HCL 100MG TAB Discontinued TAKE FOUR TABLET S BY MOUTH AT BEDTIME FOR MOOD OR SLEEP. 120 February 12, 2021 [id number] Mar 01, 2020 ELOISE BAUTISTA [facility] TRAZODONE HCL 100MG TAB Discontinued TAKE FOUR TABLET S BY MOUTH AT BEDTIME FOR MOOD OR SLEEP. 120 Aug 06, 2020 [id number] February 10, 2020 KANG ZAYAS [facility] TRAZODONE HCL 100MG TAB Discontinued TAKE FOUR TABLET S BY MOUTH AT BEDTIME FOR MOOD OR SLEEP. 120 Jun 03, 2020 [id number] Jul 29, 2019 KIMBERLY BANG [facility] TRAZODONE HCL 100MG TAB Discontinued TAKE FOUR TABLET S BY MOUTH AT BEDTIME FOR MOOD OR SLEEP. 120 February 05, 2020 [id number] May 06, 2019 KIMBERLY BANG [facility] TRAZODONE HCL 100MG TAB Discontinued TAKE FOUR TABLET S BY MOUTH AT BEDTIME FOR MOOD OR SLEEP. 120 Sep 14, 2019 [id number] Jan 07, 2019 KIMBERLY BANG [facility] TROSPIUM CL 20MG TAB Active TAKE ONE TABLET BY MOUTH TWO TIMES A DAY FOR BLADDER. TAKE ON AN EMPTY STOMACH OR AT LEAST ONE HOUR BEFORE FOOD. PER DR. BUTLER 180 January 23, 2021 [id number] Mar 16, 2020 SIMON NEELY [facility] TROSPIUM CL 20MG TAB Discontinued TAKE ONE TABLET BY MOUTH TWO TIMES A DAY FOR BLADDER. TAKE ON AN EMPTY STOMACH OR AT LEAST ONE HOUR BEFORE FOOD. PER DR. BUTLER 180 Apr 01, 2020 [id number] Dec 17, 2019 SIMON NEELY [facility] VENLAFAXINE HCL 75MG 24HR CAP,SA Active TAKE 3 CAPSULES BY MOUTH ONCE A DAY FOR MOOD. TAKE WITH FOOD. February 12, 2021 [id number] Mar 04, 2020 [facility] VENLAFAXINE HCL 75MG 24HR CAP,SA Discontinued TAKE 3 CAPSULES BY MOUTH ONCE A DAY FOR MOOD. TAKE WITH FOOD. Aug 06, 2020 [id number] Jan 05 0 [facility] VENLAFAXINE HCL 75MG 24HR CAP,SA Discontinued TAKE 3 CAPSULES BY MOUTH ONCE A DAY FOR MOOD. TAKE WITH FOOD. Aug 28, 2019 [id number] Aug 01 9 [facility] VENLAFAXINE HCL 75MG 24HR CAP,SA Discontinued TAKE 3 CAPSULES BY MOUTH ONCE A DAY FOR MOOD. TAKE WITH FOOD. February 05, 2020 [id number] Jul 01 9 KIMBERLY TARIQ [facility] Problems (Conditions): All historical and current Section Date Range: From patient's date of to the date document was create d. This section includes a list of Problems (Conditions) know n to [place] for the patient. It includes both active and inacti ve problems (conditions). The data comes from all [place] treatment facilities. Problem Status Problem Code Date of Onset Date of Resolution Comm ent(s) Provider Source Abnormality of Gait (ICD-9-CM 781.2) Active 781.2 GALILEA BENÍTEZ [facility] Achilles bursitis or tendinitis (ICD-9-CM 726.71) Active 726.71 RILEY GALVAN [facility] Acquired right hallux valgus Active [id number] RILEY GALVAN [facility] Ankle ulcer due to type 2 diabetes mellitus ([place] [address] [id number]) Active [id number] SIMON NEELY [facility] Bereavement (SNOMED CT 37084218) Active V62.89 SIMON NEELY [facility] Bilateral plantar fasciitis (SNOMED CT [id number]) Ac tive [id number] RILEY GALVAN [facility] BIPOLAR AFFECTIVE NOS Active 296.7 DEM[address] URE[address] [facility] Bipolar disorder (SNOMED CT 46480976) Active 31357728 [facility]ANG [facility] Bunion Active 727.1 MONICA MADDOX [facility] Carpal Tunnel Syndrome * (ICD-9-CM 354.0) Active 354.0 Oct 16, 2002 Entered By: GALILEA BENÍTEZ Comment: rt GALILEA BENÍTEZ [facility] Cerebral Palsy NEC (ICD-9-CM 343.8) Active 343.8 SEPIDEH NELSON [facility] Depression * (ICD-9-CM 311./300.4) Active 311. [facility] Derangement of meniscus Active 717.5 J 2001 Entered By: DEMETRA UREÑA Comment: left knee, arthroscopy 11/[address] [facility] [address] Diabetes mellitus (SNOMED CT 23976943) Active 58856620 SIMON NEELY [facility] Difficulty balancing Active 767570317 HARRISON NEELY [facility] Elevated Liver Function Tests (ICD-9-CM 794.8) Active 794.8 SIMON NEELY [facility] Enthesopathy of ankle and tarsus (ICD-9-CM 726.70/726.79) Active 72 6.70 BECCA JONES [facility] Flat foot Active 734. MONICA MADDOX [facility] GERD * (ICD-9-CM 530.81) Active 530.81 SIMON NEELY [facility] Hip Pain (ICD-9-CM 719.45) Active 719.45 [facility] Hyperkeratosis Active 701.1 MONICA MADDOX [facility] Hyperlipidemia * (ICD-9-CM 272.4) Active 272.4 [facility] Hypertension * (ICD-9-CM 401.9) Active 401.[address] [facility] Hypertension * (ICD-9-CM 401.9) Active 401.9 [facility] Insomnia * (ICD-9-CM 780.52) Active 780.52 [facility] Joint Pain Forearm Active 719.43 [facility] Lower Leg Injury NOS Active 959.7 SHARRI GUZMAN [facility] Morbid Obesity * (ICD-9-CM 278.01) Active 278.01 DARION YOUNG [facility] Obesity * (ICD-9-CM 278.00) Active 278.[address] [facility] Onychomycosis (SNOMED CT 009082997) Active 110.1 [facility] Osteoarthosis Shoulder Active 715.91 VERNELL [facility] Pain in joint involving shoulder region (ICD-9-CM 719.41) Active 71 9.41 [facility] Routine Gynecological examination Active V72.31 [facility] Sciatica * (ICD-9-CM 724.3) Active 724.3 [facility] Unspecified chest pain * (ICD-9-CM 786.50) Active 786.[address] [facility] Unsteady when walking Active [id number] [facility] Urinary Incontinence * (ICD-9-CM 788.30) Active 788.[address] [facility] MUSCLE SPASM Inactive 728.85 May 29, 2007 Sep 02 Entered By: TONY BENÍTEZ Comment: shoulders TONY BENÍTEZ [facility] Radiology Reports: +/- 30 days of the encounter No Data Provided for This Section Pathology Reports: +/- 30 days of the encounter No Data Provided for This Section Encounter Notes: All associated encounter notes This section contains the clinical notes associated to the Encounter. Date/Time Encounter Note(s) Provider Source Mar 02, 2020 11:42 AM MENTAL HEALTH TELEPHONE ENCO UNTER NOTE: LOCAL TITLE: [place] [facility] STANDARD TITLE: MENTAL HEALTH TELEPHONE ENCOUNTER NOTE DATE OF NOTE: MAR 02, 2020@11:42 ENTRY DATE: MAR 02, 2020@11:42:20 AUTHOR: EMBER JARVIS EXP COSIGNER: URGENCY: STATUS: COMPLETED [place] [facility] Has ADDENDA Called [place] per her VM request. states her Trazadone is not working as well as it has in the past. "It used to knock me out. I take it when I am in bed and it worked right away. Now it doesn't have the same effect and my sleep is patchy.' Verified [place] is taking Trazadone as prescribed - Trazadone 400mg at bedtime. Relates she would like MH Provider to know and informed that any recommendations would be called to her. [place] verbalized understanding and no other MH care needs identified at this time. /susie/ EMBER JARVIS R.N. Signed: 03/02/2020 11:47 Receipt Acknowledged By: 03/03/2020 15:16 /susie/ BRANDEN VIRK RN, BSN cat swamper 03/02/2020 16:15 /susie/ ELOISE BAUTISTA PSYCHIATRIST 03/11/2020 ADDENDUM STATUS: COMPLETED contacted for scheduling follow up appt. Scheduled. States she left message regarding Trazodone, has not heard back from RN/Provider. /es/ LUCIEN FAUST MSA Signed: 03/11/2020 14:55 Receipt Acknowledged By: * AWAITING SIGNATURE * BRANDEN VIRK 03/11/2020 ADDENDUM STATUS: COMPLETED will additionally sign Dr. Bautista regarding the trazodone not working. /susie/ BRANDEN VIRK RN, BSN cat swamper Signed: 03/11/2020 15:12 Receipt Acknowledged By: 03/12/2020 15:52 /susie/ ELOISE BAUTISTA PSYCHIATRIST 03/12/2020 ADDENDUM STATUS: COMPLETED Called patient back to discuss concerns left with RN. No answer. Left message with request to return call. /susie/ ELOISE BAUTISTA PSYCHIATRIST Signed: 03/12/2020 15:53 Receipt Acknowledged By: * AWAITING SIGNATURE * BRANDEN VIRK MARCIA J ROBERT J. DOLE [facility]
--- OUTSIDE RECORDS SUMMARY | 2020-03-28 08:21 | XMS REPORT | Encounter Summary ---
Author Author [facility] Organization [facility] Aff[facility] rs Address [address] [place] [address] Phone Unavailable Care Team Providers Care Director Of Psychology Name Role Phone FLORINDA SIMON PCP Unavailable [...] PART A Aug 25, 2011 PART A [id number] [phone] GADBERRY,CHARLANNE PATIENT MEDICARE (WNR) MEDICARE (M) PART B Aug 25, 2011 PART B [id number] GADBERRY,CHARLANNE PATIENT MEDICARE (WNR) MEDICARE (M) PART A Aug 25, 2011 PART A [id number] GADBERRY,CHARLANNE PATIENT MEDICARE (WNR) MEDICARE (M) PART B Aug 25, 2011 PART B [id number] GADBERRY,CHARLANNE PATIENT MEDICARE (WNR) MEDICARE (M) PART A Aug 25, 2011 PART A [id number] SANDRA MORELOS PATIENT MEDICARE (WNR) MEDICARE (M) PART B Aug 25, 2011 PART B [id number] SANDRA MORELOS PATIENT MEDICARE PART D (WNR) MEDICARE (M) PART D Sep 25, 2012 PART D [id number] SANDRA WHITMAN PATIENT Selected Encounter This section includes the information on record at [place] for the Encounter. Date/Time Encounter Type Encounter Description Reason Provider Source Oct 10, 2019 10:41 AM Outpatient Encounter TELEPHONE MH ICD-1 0-CM F31.32 Bipolar disorder, current episode depressed, moderate with Provider Comments: Bipolar disorder ([facility] [id number]) AMANDA DAUGHERTY [facility] IHE Encounter Template Text not used by [place] Assessments - Encounter Diagnoses This section includes the primary and secondary diag noses documented for the Encounter. Date/Time Primary/Secondary Diagnosis Diagnosis Name Provider Source Oct 10, 2019 10:41 AM PRIMARY Bipolar disorder, current episode depressed, moderate AMANDA DAUGHERTY [facility] Oct 10, 2019 10:41 AM SECONDARY Other specified counseling AMANDA DAUGHERTY [facility] Plan of Treatment: Future Appointments (+ 6 months) and Future Tests (+/- 45 day s) The Plan of Treatment section includes future care activities for the patient fr om all [place] treatment facilities. This section includes future appointments and fu ture orders which are active, pending or scheduled. Future Appointments This section includes appointments that were scheduled t o occur 6 months from the date of the Encounter, up to a maximum of 20 appointme nts. The data comes from all [place] treatment facilities. Appointment Date/Time Appointment Type Appointment Facili ty Name Nov 06, 2019 02:00 PM AMBULATORY - PSYCHIATRY DARION Cid [facility] Nov 06, 2019 02:01 PM AMBULATORY - PSYCHIATRY [facility] Nov 27, 2019 11:00 AM AMBULATORY - MEDICINE [facility] Jan 15, 2020 10:30 AM AMBULATORY - MEDICINE [facility] Jan 16, 2020 10:00 AM AMBULATORY - PSYCHIATRY DARION Cid [facility] Jan 23, 2020 02:00 PM AMBULATORY - MEDICINE [facility] February 12, 2020 02:00 PM AMBULATORY - PSYCHIATRY DARION Cid [facility] Mar 24, 2020 08:30 AM AMBULATORY - PSYCHIATRY [facility] Surgical Procedures: All associated to the encounter No Data Provided for This Section Lab Results: +/- 30 days of the encounter This section includes the Chemistry and Hematology Lab R esults on record with [place] for the patient. Radiology Reports and Pathology Report s are provided separately, in subsequent sections. Lab Results This section contains the Chemistry/Hematology Results douglas t were resulted 30 days before or 30 days after the date of the Encounter. Date/Time Source Result Type Result - Unit Interpretation Reference Range Comment Oct 09, 2019 09:41 AM [facility] HEMOGLOBIN A1C Specimen Type: BLOOD No comment entered. HEMOGLOBIN A1C 6.3 % H 4.0-6.0 Vital Signs: All taken on the encounter date No Data Provided for This Section Immunizations: All administered on the encounter date No Data Provided for This Section Social History: Smoking Status (Most current) and Tobacco Use (All prior to enco unter date) This section includes the most current, and the historical, smoking and tobacco- related health factors from the [place] facility where the Encounter took place. Current Smoking Status This section includes the most current smoking, or tobacco -related health factor, from the [place] facility where the Encounter took place. Date/Time Current Smoking Status Comment Facility Dec 28, 2015 10:28 AM CURRENT NON-SMOKER [place] Jose Roberto [facility] Tobacco Use History This section includes a history of the smoking, or tobacco -related health factors, that were collected on or before the date of the Encoun ter. The data comes from the [place] facility where the Encounter took place. Date/Time Smoking Status/Tobacco Use Comment [facility] Dec 28, 2015 10:28 AM LIFETIME NON-TOBACCO USER DARION MARTINEZ [facility] May 14, 2015 10:33 AM CURRENT NON-SMOKER [facility] May 14, 2015 10:33 AM LIFETIME NON-TOBACCO USER [facility] Dec 08, 2014 10:25 AM CURRENT NON-SMOKER DARION MARTINEZ [facility] Dec 08, 2014 10:25 AM LIFETIME NON-TOBACCO USER DARION MARTINEZ [facility] Oct 20, 2014 09:33 AM CURRENT NON-SMOKER DARION MARTINEZ [facility] Oct 20, 2014 09:33 AM LIFETIME NON-TOBACCO USER DARION MARTINEZ [facility] Jul 22, 2014 09:41 AM CURRENT NON-SMOKER DARION MARTINEZ [facility] Jul 22, 2014 09:41 AM LIFETIME NON-TOBACCO USER DARION MARTINEZ [facility] February 04, 2014 10:04 AM NON-TOBACCO USER DARION MARTINEZ [facility] Dec 16, 2013 11:26 AM CURRENT NON-SMOKER DARION MARTINEZ [facility] Dec 16, 2013 11:26 AM LIFETIME NON-TOBACCO USER DARION MARTINEZ [facility] Jan 14, 2013 01:14 PM CURRENT NON-SMOKER DARION MARTINEZ [facility] Jan 14, 2013 01:14 PM LIFETIME NON-TOBACCO USER DARION MARTINEZ [facility] February 14, 2012 09:57 AM CURRENT NON-SMOKER DARION MARTINEZ [facility] February 14, 2012 09:57 AM LIFETIME NON-TOBACCO USER DARION MARTINEZ [facility] Mar 14, 2011 01:13 PM CURRENT NON-SMOKER DARION MARTINEZ [facility] Mar 14, 2011 01:13 PM LIFETIME NON-TOBACCO USER DARION Cid [facility] Apr 15, 2010 09:39 AM CURRENT NON-SMOKER DARION MARTINEZ [facility] Apr 15, 2010 09:39 AM LIFETIME NON-TOBACCO USER DARION MARTINEZ [facility] Mar 09, 2010 02:30 PM CURRENT NON-SMOKER DARION MARTINEZ [facility] Mar 09, 2010 02:30 PM LIFETIME NON-TOBACCO USER [facility] Nov 06, 2009 10:50 AM CURRENT NON-SMOKER DARION MARTINEZ [facility] Nov 06, 2009 10:50 AM LIFETIME NON-TOBACCO USER [facility] Advance Directives: All historical and current Section Date Range: From patient's date of to the date document was create d. This section includes ALL of a patient's completed or amen ded [place] Advance and Rescinded Directives. The entries below indicate that a direc tive exists for the patient, but an actual copy is not included with this docume nt. The data comes from all [place] facilities. Date Advance Directives Provider Source Sep 15, 2009 ADVANCE DIRECTIVE DISCUSSION JADE VARMA [facility] Jul 21, 2006 ADVANCE DIRECTIVE [facility] Jul 12, 2006 ADVANCE DIRECTIVE DISCUSSION SAV PAULSON [facility] Allergies and Adverse Reactions (ADRs): All historical and current Section Date Range: From patient's date of to the date document was create d. This section includes Allergies and Adverse Reactions (ADR s) on record with [facility] for the [facility]. The data comes from a ll [place] treatment facilities. It does not list Allergies/ADRs that were removed or entered in error. Some allergies/ADRs may be reported in t he Immunization section. Allergen Event Date Event Type Reaction(s) Severity Source ENALAPRIL Aug 22, 2017 Propensity to adverse reactions to drug (diso rder) [facility] ENALAPRIL May 04, 2007 Propensity to adverse reactions to drug ( disorder) Cough [facility] LEVAQUIN Aug 22, 2017 Propensity to adverse reactions to drug (diso rder) [facility] Oct 08, 2015 Propensity to adverse reactions to drug (disorder) Eruption [facility] LISINOPRIL Aug 22, 2017 Propensity to adverse reactions to drug (diso rder) [facility] LISINOPRIL Jan 16, 2007 Propensity to adverse reactions to drug (disorder) Cough [facility] NIACIN Aug 22, 2017 Propensity to adverse reactions to drug (diso rder) [facility] NIACIN Oct 23, 2008 Propensity to adverse reactions to drug ( disorder) Eruption [facility] Medications: VA dispensed (-15 months) and Non-VA Documented (Obtained Outside A) Section Date Range: 1) prescriptions processed by a VA pharmacy in the last 15 m ont, and 2) all medications recorded in the [place] medical record as "non-VA medic ations". Pharmacy terms refer to [place] pharmacy's work on prescriptions. [facility] patient s are advised to take their medications as instructed by their health care team. The data comes from all [place] treatment facilities. Glossary of Pharmacy Terms:Active = A prescription that can be filled at the local [place] pharmacy.Active: On Hold = An active prescription that will not be filled until pharmacy resolves the issue.Active: Susp = An active prescription that is not scheduled to be filled yet.Clinic Order = A medication received during a visit to a [place] clinic or emergency department (currently not available).Discontinued [...] BLOOD GLUCOSE TESTING 50 Jun 06, 2020 [id number] February 21, 2020 SIMON NEELY AMLODIPINE BESYLATE 10MG TAB Active TAKE ONE TABLET BY MOUTH EVERY MORNING 90 January 23, 2021 [id number] Jan 23, 2020 SIMON NEELY AMLODIPINE BESYLATE 10MG TAB Discontinued TAKE ONE TA BLET BY MOUTH EVERY MORNING 90 Nov 27, 2019 [id number] Oct 21, 2019 SIMON NEELY ATORVASTATIN CA 20MG TAB Active TAKE ONE-HALF T ABLET BY MOUTH AT BEDTIME FOR CHOLESTEROL - REPORT ANY UNEXPLAINED MUSCLE PAIN/WEAKNESS TO YOUR PROVIDER TAKE IN PLACE OF CRESTOR, [facility] DOESNT SUPPLY CRESTOR, FOR CHOLESTEROL - REPORT ANY UNEXPLAINED MUSCLE PAIN/WEAKNESS TO YOUR PROVIDER TAKE IN PLACE OF CRESTOR, [facility] DOESNT SUPPLY CRESTOR, 45 January 23, 2021 [id number] Jan 23, 2020 HARRISON NEELY ATORVASTATIN CA 20MG TAB Discontinued TAKE ONE-HALF T ABLET BY MOUTH AT BEDTIME FOR CHOLESTEROL - REPORT ANY UNEXPLAINED MUSCLE PAIN/WEAKNESS TO YOUR PROVIDER TAKE IN PLACE OF CRESTOR, [facility] DOESNT SUPPLY CRESTOR, FOR CHOLESTEROL - REPORT ANY UNEXPLAINED MUSCLE PAIN/WEAKNESS TO YOUR PROVIDER TAKE IN PLACE OF CRESTOR, [facility] DOESNT SUPPLY CRESTOR, 45 Dec 07, 2019 [id number] Mar 01, 2019 HARRISON NEELY BRIEF,SUPER PLUS ABSORB WITH BARRIERS UNDERWEAR X-LARGE ATTE NDS Active USE DIRECTED DIRECTED FOR INCONTINENCE 56 Nov 04, 2020 [id number] Nov 09, 2019 SIMON NEELY BRIEF,SUPER PLUS ABSORB WITH BARRIERS UNDERWEAR X-LARGE ATTE NDS Discontinued USE DIRECTED DIRECTED FOR INCONTINENCE 56 Apr 01, 2020 [id number] Aug 06, 2019 SIMON NEELY GLIPIZIDE 5MG TAB Active TAKE ONE TABLET BY M OUTH EVERY DAY BEFORE BREAKFAST FOR DIABETES. TAKE 30 MINUTES BEFORE EATING. 90 Apr 22, 2020 [id number] February 12, 2020 SIMON NEELY GLIPIZIDE 5MG TAB Discontinued TAKE ONE TABLET BY M OUTH EVERY DAY BEFORE BREAKFAST FOR DIABETES. TAKE 30 MINUTES BEFORE EATING. 90 Feb [id number] February 12, 2020 SIMON NEELY GLIPIZIDE 5MG TAB Discontinued TAKE ONE TABLET BY M OUTH EVERY DAY BEFORE BREAKFAST FOR DIABETES. TAKE 30 MINUTES BEFORE EATING. 90 January [id number] Nov 24, 2019 SIMON NEELY CBREYMUNDO GLIPIZIDE 5MG TAB Discontinued TAKE ONE TABLET BY M OUTH EVERY DAY BEFORE BREAKFAST FOR DIABETES. TAKE 30 MINUTES BEFORE EATING. 90 Nov [id number] Sep 05, 2019 SIMON NEELY [facility] LANCET,SOFTCLIX Active USE LANCET BIW FOR TESTING BL OOD GLUCOSE DIRECTED 100 Jun 06, 2020 [id number] Jun 07, 2019 SIMON NEELY C[facility] LITHIUM CARBONATE 300MG CAP Active TAKE 1 CAPSU LE BY MOUTH EVERY MORNING AND TAKE 3 CAPSULES BY MOUTH AT BEDTIME FOR MOOD. MUST MAKE AN APPT OR WILL TAPER AND DISCONTINUE MEDICATIONS 120 February 12, 2021 [id number] Mar 04, 2020 [facility] LITHIUM CARBONATE 300MG CAP Discontinued TAKE 1 CAPSU LE BY MOUTH EVERY MORNING AND TAKE 3 CAPSULES BY MOUTH AT BEDTIME FOR MOOD. MUST MAKE AN APPT OR WILL TAPER AND DISCONTINUE MEDICATIONS 120 Aug 06, 2020 [id number] Dec 16, 2019 [facility] LITHIUM CARBONATE 300MG CAP Discontinued TAKE 1 CAPSU LE BY MOUTH EVERY MORNING AND TAKE 3 CAPSULES BY MOUTH AT BEDTIME FOR MOOD. MUST MAKE AN APPT OR WILL TAPER AND DISCONTINUE MEDICATIONS 120 Jun 10, 2020 [id number] Jul 19, 2019 [facility] LITHIUM CARBONATE 300MG CAP Discontinued TAKE 1 CAPSU LE BY MOUTH EVERY MORNING AND TAKE 3 CAPSULES BY MOUTH AT BEDTIME FOR MOOD. MUST MAKE AN APPT OR WILL TAPER AND DISCONTINUE MEDICATIONS 120 Jul 03, 2019 [id number] Jun 03, 2019 [facility] LITHIUM CARBONATE 300MG CAP Discontinued TAKE 1 CAPSU LE BY MOUTH EVERY MORNING AND TAKE 3 CAPSULES BY MOUTH AT BEDTIME FOR MOOD. MUST MAKE AN APPT OR WILL TAPER AND DISCONTINUE MEDICATIONS 120 Mar 23, 2019 [id number] February 21, 2019 KIMBERLY TARIQ [facility] LITHIUM CARBONATE 300MG CAP Discontinued TAKE 1 CAPSU LE BY MOUTH EVERY MORNING AND TAKE 3 CAPSULES BY MOUTH AT BEDTIME FOR MOOD. 120 Dec 18, 2019 [id number] Jan 11, 2019 [facility]ANG [facility] LITHIUM CARBONATE 300MG TAB,SA Discontinued TAKE [...] SPLIT, OR CHEW. 234 May 31, 2019 [id number] Apr 01, 2019 [facility]LY [facility]ANG [facility] NO KNOWN NON-VA MEDS MISCELLANEOUS Non-VA Non-VA Documented by: MICHELLE BARTHOLOMEW Docume nted at: [facility] NO KNOWN NON-VA MEDS MISCELLANEOUS Non-VA Non-VA Documented by: GALILEA BENÍTEZ Docume nted at: [facility] OXYCODONE HCL 5MG TAB No n-VA TAKE ONE TABLET BY MOUTH EVERY 6 HOURS NEEDED Non-VA Docume nted by: SIMON NEELY Docume nted at: [facility] QUETIAPINE FUMARATE 100MG TAB Active TAKE ONE-HALF TABL ET BY MOUTH AT BEDTIME 15 Mar 25, 2021 [id number] Mar 24, 2020 JASSONWYELOISE [facility] TRAMADOL HCL 50MG TAB No n-VA TAKE ONE TABLET BY MOUTH EVERY 6 HOURS NEEDED Non-VA Docume nted by: SIMON NEELY Docume nted at: [facility] TRAZODONE HCL 100MG TAB Discontinued TAKE FOUR TABLET S BY MOUTH AT BEDTIME FOR MOOD OR SLEEP. 120 February 12, 2021 [id number] Mar 01, 2020 ELOISE HUYNH [facility] TRAZODONE HCL 100MG TAB Discontinued TAKE FOUR TABLET S BY MOUTH AT BEDTIME FOR MOOD OR SLEEP. 120 Aug 06, 2020 [id number] February 10, 2020 KANG Z[facility]AS [facility] TRAZODONE HCL 100MG TAB Discontinued TAKE FOUR TABLET S BY MOUTH AT BEDTIME FOR MOOD OR SLEEP. 120 Jun 03, 2020 [id number] Jul 29, 2019 KIMBERLY BANG [facility] TRAZODONE HCL 100MG TAB Discontinued TAKE FOUR TABLET S BY MOUTH AT BEDTIME FOR MOOD OR SLEEP. 120 February 05, 2020 [id number] May 06, 2019 KIMBERLY BANG [facility] TRAZODONE HCL 100MG TAB Discontinued TAKE FOUR TABLET S BY MOUTH AT BEDTIME FOR MOOD OR SLEEP. 120 Sep 14, 2019 [id number] Jan 07, 2019 KIMBERLY BANG [facility] TROSPIUM CL 20MG TAB Active TAKE ONE TABLET BY MOUTH TWO TIMES A DAY FOR BLADDER. TAKE ON AN EMPTY STOMACH OR AT LEAST ONE HOUR BEFORE FOOD. PER DR. BUTLER 180 January 23, 2021 [id number] Mar 16, 2020 SIMON NEELY [facility] TROSPIUM CL 20MG TAB Discontinued TAKE ONE TABLET BY MOUTH TWO TIMES A DAY FOR BLADDER. TAKE ON AN EMPTY STOMACH OR AT LEAST ONE HOUR BEFORE FOOD. PER DR. BUTLER 180 Apr 01, 2020 [id number] Dec 17, 2019 SIMON NEELY [facility] VENLAFAXINE HCL 75MG 24HR CAP,SA Active TAKE 3 CAPSULES BY MOUTH ONCE A DAY FOR MOOD. TAKE WITH FOOD. 90 February 12, 2021 [id number] Mar 04, 2020 Arlette HUYNH [facility] VENLAFAXINE HCL 75MG 24HR CAP,SA Discontinued TAKE 3 CAPSULES BY MOUTH ONCE A DAY FOR MOOD. TAKE WITH FOOD. 90 Aug 06, 2020 [id number] Jan 05 0 KANG ZAYAS [facility] VENLAFAXINE HCL 75MG 24HR CAP,SA Discontinued TAKE 3 CAPSULES BY MOUTH ONCE A DAY FOR MOOD. TAKE WITH FOOD. 90 Aug 28, 2019 [id number] Aug 01 9 KIMBERLY TARIQ [facility] VENLAFAXINE HCL 75MG 24HR CAP,SA Discontinued TAKE 3 CAPSULES BY MOUTH ONCE A DAY FOR MOOD. TAKE WITH FOOD. 90 February 05, 2020 [id number] Jul 01 9 KIMBERLY TARIQ [facility] Problems (Conditions): All historical and current Section Date Range: From patient's date of to the date document was create d. This section includes a list of Problems (Conditions) know n to [place] for the patient. It includes both active and inacti ve problems (conditions). The data comes from all [place] treatment facilities. Problem Status Problem Code Date of Onset Date of Resolution Comm ent(s) Provider Source Abnormality of Gait (ICD-9-CM 781.2) Active 781.2 GALILEA BENÍTEZ [facility] Achilles bursitis or tendinitis (ICD-9-CM 726.71) Active 726.71 RILEY GALVAN [facility] Acquired right hallux valgus Active [id number] RILEY GALVAN [facility] Ankle ulcer due to type 2 diabetes mellitus ([place] [address] [id number]) Active 17912010541798 [facility] NEELY [facility] Bereavement (SNOMED CT 91288776) Active V62.89 SIMON NEELY [facility] Bilateral plantar fasciitis (SNOMED CT [id number]) Ac tive [id number] RILEY GALVAN [facility] BIPOLAR AFFECTIVE NOS Active 296.7 DEMETRA UREÑA [facility] Bipolar disorder (SNOMED CT 03753715) Active 60644872 KIMBERLY BANG [facility] Bunion Active 727.1 MONICA MADDOX [facility] Carpal Tunnel Syndrome * (ICD-9-CM 354.0) Active 354.0 Oct 16, 2002 Entered By: GALILEA BENÍTEZ Comment: rt GALILEA BENÍTEZ [facility] Cerebral Palsy NEC (ICD-9-CM 343.8) Active 343.8 SEPIDEH NELSON [facility] Depression * (ICD-9-CM 311./300.4) Active 311. [facility] NEELY [facility] Derangement of meniscus Active 717.5 J an 2001 Entered By: DEMETRA UREÑA Comment: left knee, arthroscopy 11/23 DEMETRA UREÑA [facility] Diabetes mellitus (SNOMED CT 29673452) Active 11027885 [facility]ON NELEY [facility] Difficulty balancing Active 141000280 [facility] Elevated Liver Function Tests (ICD-9-CM 794.8) Active 794.8 [facility] NEELY [facility] Enthesopathy of ankle and tarsus (ICD-9-CM 726.70/726.79) Active 72 6.70 BECCA JONES [facility] Flat foot Active 734. MONICA MADDOX [facility] GERD * (ICD-9-CM 530.81) Active 530.81 SIMON NEELY [facility] Hip Pain (ICD-9-CM 719.45) Active 719.45 SIMON YA Ina [facility] Hyperkeratosis Active 701.1 MONICA MADDOX ROBE RT Cid [facility] Hyperlipidemia * (ICD-9-CM 272.4) Active 272.4 [facility] Hypertension * (ICD-9-CM 401.9) Active 401.9 GALILEA BENÍTEZ [facility] Hypertension * (ICD-9-CM 401.9) Active 401.9 [facility] Insomnia * (ICD-9-CM 780.52) Active 780.52 SIMON THOMAS [facility] Joint Pain Forearm Active 719.43 [facility] Lower Leg Injury NOS Active 959.[address] [facility] Morbid Obesity * (ICD-9-CM 278.01) Active 278.01 DARION YOUNG [facility] Obesity * (ICD-9-CM 278.00) Active 278.00 GALILEA WEST [facility] Onychomycosis (SNOMED CT 662650094) Active 110.1 SIMON NEELY [facility] Osteoarthosis Shoulder Active 715.[address] [facility] Pain in joint involving shoulder region (ICD-9-CM 719.41) Active 71 9.41 FLORINDASIMON DARION Cid [facility] Routine Gynecological examination Active V72.31 SIMON NEELY D[facility]ION [facility] Sciatica * (ICD-9-CM 724.3) Active 724.3 ROBERTO CARLOSSIMON PEREZ DARION [facility] Unspecified chest pain * (ICD-9-CM 786.50) Active 786.50 MARK VIVAS [facility] Unsteady when walking Active 07163545 HARRISON NEELY D[facility] Urinary Incontinence * (ICD-9-CM 788.30) Active 788.30 JJ GAYTAN [facility] MUSCLE SPASM Inactive 728.85 May 29, 2007 Sep 02 Entered By: TONY BENÍTEZ Comment: shoulders TONY BENÍTEZ [facility] Radiology Reports: +/- 30 days of the encounter No Data Provided for This Section Pathology Reports: +/- 30 days of the encounter No Data Provided for This Section Encounter Notes: All associated encounter notes This section contains the clinical notes associated to the Encounter. Date/Time Encounter Note(s) Provider Source Oct 10, 2019 10:41 AM MENTAL HEALTH TELEPHONE ENCO UNTER NOTE: LOCAL TITLE: [facility] PHONE [facility] STANDARD TITLE: MENTAL HEALTH TELEPHONE ENCOUNTER NOTE DATE OF NOTE: OCT 10, 2019@10:41 ENTRY DATE: OCT 10, 2019@10:41:54 AUTHOR: AMANAD DAUGHERTY COSIGNER: URGENCY: STATUS: COMPLETED [facility] PHONE [facility] Has ADDENDA contacts the [facility], states she has been having difficulty with the pharmacy's automated refill system and has not been able to refill her lithium. Per CPRS : Dispense Drugs (units/dose): LITHIUM CARBONATE 300MG CAP () Last Filled: 08/12/19 Refills Remainin Filled: 08/12/19 (Mail) released 08/12/19 RENEWED FROM RX # [id number] Prescription#: [id number] Pharmacist: TIMMY NIEVES Beattie states since she has been running low on her current supply of lithium, she has decreased her lithium dose to 300mg in the am and 300mg in PM (taking 600mg per day). aware that the p rescribed dose is 1200mg per day (300mg in the am and 900mg at night). Eloina states she has been on the lower dose for the past week and it has controlled her mood. Eloina would like to ensure she can get refills of her lithium and voices concerns about taking a lower dose of lithium. Informed Eloina that this RN would alert her MH Provider that she has decreased her lithium dose d/t to being low on her current supply. Discussed that lithium dose may need to be readjusted since she has not being taking her prescribed dose. Informed Beattie that her MH Provider would be alerted for disposition. Encouraged not to self-adjust medication. Discussed risks. Ensured had appropriate numbers for oupt pharmacy and the Clinic number. Encouraged to contact the clinic or pharmacy 10-14 days prior to running out of medication. verbalized understanding. Reviewed other medication orders, venlafaxine and trazodone. Eloina reports taking trazodone and venlafaxine as prescribed. States medication is providing symptom control. Eloina requests refill of venlafaxine at this time, states she has some remaining in her current supply, but is running low. Eloina declines trazodone refill at this time, stating she has enough trazodone in her current medication supply. Informed that venlafaxine will be set for mail out. Informed that refills remain on Trazodone and venlafaxine. During phone call eloina also requested a MH Provider reassignment. Eloina reports she prefers a female MH Provider. Informed Eloina that her current MH Provider would be alerted of her request. verbalized understanding of all information discussed and denied any other MH needs, questions or concerns. Beattie requests call back regarding her lithium refill. Requests that refill be overnighted. Beattie encouraged to contact the [facility] with any other MH needs, questions or concerns. /es/ AMANDA DAUGHERTY RN BSN Signed: 10/10/2019 11:18 Receipt Acknowledged By: 10/10/2019 12:21 /es/ Kang velasquez Jr. Staff Psychiatrist 10/10/2019 ADDENDUM STATUS: COMPLETED Instant messaged MH Provider. Provider informs RN that he refilled Eloina's lithium and is okay with Beattie resuming the prescribed dose. Provider informs RN that refill has been entered and Provider requested that medication be overnighted in the mail to pt. RN contacted pharmacy to follow up on Reform refill and ensure medication is being expedited. Spoke with Rey, pharmacy staff member regarding refill. Rey informs RN that lithium refill will be expedited (overnighted via UPS) and sent to on 10/11/19. /susie/ AMANDA DAUGHERTY RN BSN Signed: 10/11/2019 09:24 AMANDA DAUGHERTY [facility]
--- OUTSIDE RECORDS SUMMARY | 2020-03-28 08:21 | XMS REPORT ---
Author Author [facility] Address [address] [place] [address] Phone Unavailable Care Team Providers Care Provider Network Analyst Name Role Phone FLORINDASIMON PCP Unavailable Insurance [...] PART A Aug 25, 2011 PART A [id number] GADBERRY,CHARLANNE PATIENT MEDICARE (WNR) MEDICARE (M) PART B Aug 25, 2011 PART B [id number] GADBERRY,CHARLANNE PATIENT MEDICARE (WNR) MEDICARE (M) PART A Aug 25, 2011 PART A [id number] GADBERRY,CHARLANNE PATIENT MEDICARE (WNR) MEDICARE (M) PART B Aug 25, 2011 PART B [id number] GADBERRY,CHARLANNE PATIENT MEDICARE (WNR) MEDICARE (M) PART A Aug 25, 2011 PART A [id number] SANDRA MORELOS PATIENT MEDICARE (WNR) MEDICARE (M) PART B Aug 25, 2011 PART B [id number] [phone] SANDRA MORELOS PATIENT MEDICARE PART D (WNR) MEDICARE (M) PART D Sep 25, 2012 PART D [id number] SANDRA WHITMAN PATIENT Selected Encounter This section includes the information on record at [place] for the Encounter. Date/Time Encounter Type Encounter Description Reason Provider Source Jan 16, 2020 10:00 AM Outpatient Encounter [facility] - [facility] IHE Encounter Template Text not used by [place] Assessments - Encounter Diagnoses No Data Provided [...] The data comes from all [place] treatment [facility]. Appointment Date/Time Appointment Type Appointment Facili ty Name Jan 23, 2020 02:00 PM AMBULATORY - MEDICINE [facility] February 12, 2020 02:00 PM AMBULATORY - PSYCHIATRY [facility] Mar 24, 2020 08:30 AM AMBULATORY - PSYCHIATRY [facility] Apr 16, 2020 10:00 AM AMBULATORY - PSYCHIATRY [facility] May 12, 2020 10:00 AM AMBULATORY - PSYCHIATRY [facility] Surgical Procedures: All associated to the encounter [...] Encounter took place. Date/Time Current Smoking Status [facility] Facility Dec 28, 2015 10:28 AM CURRENT NON-SMOKER [facility] Tobacco Use History This section includes a history of the smoking, or tobacco -related health factors, that were collected on or before the date of the Encoun ter. The data comes from the [place] facility where the Encounter took place. Date/Time Smoking Status/Tobacco Use Comment Addy cas Dec 28, 2015 10:28 AM LIFETIME NON-TOBACCO USER DARION MARTINEZ [facility] May 14, 2015 10:33 AM CURRENT NON-SMOKER DARION MARTINEZ [facility] May 14, 2015 10:33 AM LIFETIME NON-TOBACCO USER DARION MARTINEZ [facility] Dec 08, 2014 10:25 AM CURRENT NON-SMOKER DARION Cid [facility] Dec 08, 2014 10:25 AM LIFETIME NON-TOBACCO USER DARION MARTINEZ [facility] Oct 20, 2014 09:33 AM CURRENT NON-SMOKER [facility] Oct 20, 2014 09:33 AM LIFETIME NON-TOBACCO USER DARION MARTINEZ [facility] Jul 22, 2014 09:41 AM CURRENT NON-SMOKER DARION Jose Roberto [facility] Jul 22, 2014 09:41 AM LIFETIME NON-TOBACCO USER DARION MARTINEZ [facility] February 04, 2014 10:04 AM NON-TOBACCO USER DARION MARTINEZ [facility] Dec 16, 2013 11:26 AM CURRENT NON-SMOKER [facility]ION [facility] Dec 16, 2013 11:26 AM LIFETIME NON-TOBACCO USER DARION MARTINEZ [facility] Jan 14, 2013 01:14 PM CURRENT NON-SMOKER [facility] Jan 14, 2013 01:14 PM LIFETIME NON-TOBACCO USER [facility] February 14, 2012 09:57 AM CURRENT NON-SMOKER DARION Jose Roberto [facility] February 14, 2012 09:57 AM LIFETIME NON-TOBACCO USER DARION MARTINEZ [facility] Mar 14, 2011 01:13 PM CURRENT NON-SMOKER DARION [facility] Mar 14, 2011 01:13 PM LIFETIME NON-TOBACCO USER DARION Cid [facility] Apr 15, 2010 09:39 AM CURRENT NON-SMOKER DARION [facility] Apr 15, 2010 09:39 AM LIFETIME NON-TOBACCO USER DARION MARTINEZ [facility] Mar 09, 2010 02:30 PM CURRENT NON-SMOKER DARION [facility] Mar 09, 2010 02:30 PM LIFETIME NON-TOBACCO USER DARION Cid [facility] Nov 06, 2009 10:50 AM CURRENT NON-SMOKER DARION [facility] Nov 06, 2009 10:50 AM LIFETIME NON-TOBACCO USER DARION Cid [facility] Advance Directives: All historical and current Section [...] 15, 2009 ADVANCE DIRECTIVE DISCUSSION JADE VARMAN [facility] Jul 21, [address] [facility] Jul 12, 2006 ADVANCE DIRECTIVE DISCUSSION SAV [...] to adverse reactions to drug (diso rder) [facility] May 04, 2007 Propensity to adverse reactions to drug ( disorder) Cough [facility] LEVAQUIN Aug 22, 2017 Propensity to adverse reactions to drug (diso rder) [facility] [place] Oct 08, 2015 Propensity to adverse reactions to drug (disorder) Eruption [facility] 15 LISINOPRIL Aug 22, 2017 Propensity to adverse reactions to drug (diso rder) [facility] Jan 16, 2007 Propensity to adverse reactions to drug (disorder) Cough [facility] NIACIN Aug 22, 2017 Propensity to adverse reactions to drug (diso rder) [facility] NIACIN Oct 23, 2008 Propensity to adverse reactions to drug ( disorder) Eruption [facility] 15 Medications: VA dispensed (-15 months) and Non-VA Documented (Obtained Outside V A) Section Date Range: 1) prescriptions processed by a [place] pharmacy in the last 15 m [facility], and 2) all medications recorded in the [place] medical record as "non-VA medic ations". Pharmacy terms refer to [place] pharmacy's work on prescriptions. [place] patient s are advised to take their medications as instructed by their health care team. The data comes from all [place] treatment facilities. Glossary of Pharmacy Terms:Active = A prescription that can be filled at the local [place] pharmacy.Active: On Hold = An active prescription [...] BLOOD GLUCOSE TESTING 50 Jun 06, 2020 [id number] February 21, 2020 SIMON NEELY AMLODIPINE BESYLATE 10MG TAB Active TAKE ONE TABLET BY MOUTH EVERY MORNING 90 January 23, 2021 [id number] Jan 23, 2020 SIMON NEELY AMLODIPINE BESYLATE 10MG TAB Discontinued TAKE ONE TA BLET BY MOUTH EVERY MORNING 90 Nov 27, 2019 [id number] Oct 21, 2019 SIMON NEELY ATORVASTATIN CA 20MG TAB Active TAKE ONE-HALF T ABLET BY MOUTH AT BEDTIME FOR CHOLESTEROL - REPORT ANY UNEXPLAINED MUSCLE PAIN/WEAKNESS TO YOUR PROVIDER TAKE IN PLACE OF CRESTOR, [place] DO[place] SUPPLY CRESTOR, FOR CHOLESTEROL - REPORT ANY UNEXPLAINED MUSCLE PAIN/WEAKNESS TO YOUR PROVIDER TAKE IN PLACE OF CRESTOR, [place], 45 January 23, 2021 [id number] Jan 23, 2020 HARRISON NEELY ATORVASTATIN CA 20MG TAB Discontinued TAKE ONE-HALF T ABLET BY MOUTH AT BEDTIME FOR CHOLESTEROL - REPORT ANY UNEXPLAINED MUSCLE PAIN/WEAKNESS TO YOUR PROVIDER TAKE IN PLACE OF CRESTOR, [place] CREST[place], FOR CHOLESTEROL - REPORT ANY UNEXPLAINED MUSCLE PAIN/WEAKNESS TO YOUR PROVIDER TAKE IN PLACE OF CRESTOR, [place] CREST[place], 45 Dec 07, 2019 [id number] Mar 01, 2019 HARRISON NEELY BRIEF,SUPER PLUS ABSORB WITH BARRIERS UNDERWEAR X-LARGE ATTE NDS Active USE DIRECTED DIRECTED FOR INCONTINENCE 56 Nov 04, 2020 [id number] Nov 09, 2019 SIMON NEELY BRIEF,SUPER PLUS ABSORB WITH BARRIERS UNDERWEAR X-LARGE ATTE NDS Discontinued USE DIRECTED DIRECTED FOR INCONTINENCE 56 Apr 01, 2020 [id number] Aug 06, 2019 SIMON NEELY GLIPIZIDE 5MG TAB Active TAKE ONE TABLET BY M OUTH EVERY DAY BEFORE BREAKFAST FOR DIABETES. TAKE 30 MINUTES BEFORE EATING. 90 Apr 22, 2020 [id number] February 12, 2020 SIMON NEELY GLIPIZIDE 5MG TAB Discontinued TAKE ONE TABLET BY M OUTH EVERY DAY BEFORE BREAKFAST FOR DIABETES. TAKE 30 MINUTES BEFORE EATING. 90 Feb 242019 [id number] February 12, 2020 SIMON NEELY GLIPIZIDE 5MG TAB Discontinued TAKE ONE TABLET BY M OUTH EVERY DAY BEFORE BREAKFAST FOR DIABETES. TAKE 30 MINUTES BEFORE EATING. 90 January [id number] Nov 24, 2019 SIMON NEELY GLIPIZIDE 5MG TAB Discontinued TAKE ONE TABLET BY M OUTH EVERY DAY BEFORE BREAKFAST FOR DIABETES. TAKE 30 MINUTES BEFORE EATING. 90 Nov [id number] Sep 05, 2019 SIMON NEELY LANCET,SOFTCLIX Active USE LANCET BIW FOR TESTING BL OOD GLUCOSE DIRECTED 100 Jun 06, 2020 [id number] Jun 07, 2019 SIMON NEELY C LITHIUM CARBONATE 300MG CAP Active TAKE 1 CAPSU LE BY MOUTH EVERY MORNING AND TAKE 3 CAPSULES BY MOUTH AT BEDTIME FOR MOOD. MUST MAKE AN APPT OR WILL TAPER AND DISCONTINUE MEDICATIONS 120 February 12, 2021 [id number] Mar 04, 2020 ELOISE HUYNH [facility] LITHIUM CARBONATE 300MG CAP Discontinued TAKE 1 CAPSU LE BY MOUTH EVERY MORNING AND TAKE 3 CAPSULES BY MOUTH AT BEDTIME FOR MOOD. MUST MAKE AN APPT OR WILL TAPER AND DISCONTINUE MEDICATIONS 120 Aug 06, 2020 [id number] Dec 16, 2019 KANG ZAYAS [facility] LITHIUM CARBONATE 300MG CAP Discontinued TAKE 1 CAPSU LE BY MOUTH EVERY MORNING AND TAKE 3 CAPSULES BY MOUTH AT BEDTIME FOR MOOD. MUST MAKE AN APPT OR WILL TAPER AND DISCONTINUE MEDICATIONS 120 Jun 10, 2020 [id number] Jul 19, 2019 [facility]IQ [facility] LITHIUM CARBONATE 300MG CAP Discontinued TAKE 1 CAPSU LE BY MOUTH EVERY MORNING AND TAKE 3 CAPSULES BY MOUTH AT BEDTIME FOR MOOD. MUST MAKE AN APPT OR WILL TAPER AND DISCONTINUE MEDICATIONS 120 Jul 03, 2019 [id number] Jun 03, 2019 [facility]IQ [facility] LITHIUM CARBONATE 300MG CAP Discontinued TAKE 1 CAPSU LE BY MOUTH EVERY MORNING AND TAKE 3 CAPSULES BY MOUTH AT BEDTIME FOR MOOD. MUST MAKE AN APPT OR WILL TAPER AND DISCONTINUE MEDICATIONS 120 Mar 23, 2019 [id number] February 21, 2019 [facility]IQ [facility] LITHIUM CARBONATE 300MG CAP Discontinued TAKE 1 CAPSU LE BY MOUTH EVERY MORNING AND TAKE 3 CAPSULES BY MOUTH AT BEDTIME FOR MOOD. 120 Dec 18, 2019 [id number] Jan 11, 2019 [facility]ANG [facility] LITHIUM CARBONATE 300MG TAB,SA Discontinued TAKE [...] SPLIT, OR CHEW. 234 May 31, 2019 [id number] Apr 01, 2019 [facility] NO KNOWN NON-VA MEDS MISCELLANEOUS Non-VA Non-VA Documented by: MICHELLE BARTHOLOMEW nted at: [facility] NO KNOWN NON-VA MEDS MISCELLANEOUS Non-VA Non-VA Documented by: GALILEA BENÍTEZ nted at: [facility] OXYCODONE HCL 5MG TAB No n-VA TAKE ONE TABLET BY MOUTH EVERY 6 HOURS NEEDED Non-VA Docume nted by: SIMON NEELY Docume nted at: [facility] QUETIAPINE FUMARATE 100MG TAB Active TAKE ONE-HALF TABL ET BY MOUTH AT BEDTIME 15 Mar 25, 2021 [id number] Mar 24, 2020 ELOISE HUYNH [facility] TRAMADOL HCL 50MG TAB No n-VA TAKE ONE TABLET BY MOUTH EVERY 6 HOURS NEEDED Non-VA Docume nted by: SIMON NEELY Docume nted at: [facility] TRAZODONE HCL 100MG TAB Discontinued TAKE FOUR TABLET S BY MOUTH AT BEDTIME FOR MOOD OR SLEEP. 120 February 12, 2021 [id number] Mar 01, 2020 ELOISE HUYNH [facility] TRAZODONE HCL 100MG TAB Discontinued TAKE FOUR TABLET S BY MOUTH AT BEDTIME FOR MOOD OR SLEEP. 120 Aug 06, 2020 [id number] February 10, 2020 [facility]AS [facility] TRAZODONE HCL 100MG TAB Discontinued TAKE FOUR TABLET S BY MOUTH AT BEDTIME FOR MOOD OR SLEEP. 120 Jun 03, 2020 [id number] Jul 29, 2019 [facility]ANG [facility] TRAZODONE HCL 100MG TAB Discontinued TAKE FOUR TABLET S BY MOUTH AT BEDTIME FOR MOOD OR SLEEP. 120 February 05, 2020 [id number] May 06, 2019 KIMBERLY BANG [facility] TRAZODONE HCL 100MG TAB Discontinued TAKE FOUR TABLET S BY MOUTH AT BEDTIME FOR MOOD OR SLEEP. 120 Sep 14, 2019 [id number] Jan 07, 2019 KIMBERLY BANG [facility] TROSPIUM CL 20MG TAB Active TAKE ONE TABLET BY MOUTH TWO TIMES A DAY FOR BLADDER. TAKE ON AN EMPTY STOMACH OR AT LEAST ONE HOUR BEFORE FOOD. PER DR. BUTLER 180 January 23, 2021 [id number] Mar 16, 2020 SIMON NEELY [facility] TROSPIUM CL 20MG TAB Discontinued TAKE ONE TABLET BY MOUTH TWO TIMES A DAY FOR BLADDER. TAKE ON AN EMPTY STOMACH OR AT LEAST ONE HOUR BEFORE FOOD. PER DR. BUTLER 180 Apr 01, 2020 [id number] Dec 17, 2019 SIMON NEELY O[facility] VENLAFAXINE HCL 75MG 24HR CAP,SA Active TAKE 3 CAPSULES BY MOUTH ONCE A DAY FOR MOOD. TAKE WITH FOOD. February 12, 2021 [id number] Mar 04, 2020 [facility]ANGArlette [facility] VENLAFAXINE HCL 75MG 24HR CAP,SA Discontinued TAKE 3 CAPSULES BY MOUTH ONCE A DAY FOR MOOD. TAKE WITH FOOD. Aug 06, 2020 [id number] Jan 05 0 KANG ZAYAS Ina [facility] VENLAFAXINE HCL 75MG 24HR CAP, Discontinued TAKE 3 CAPSULES BY MOUTH ONCE A DAY FOR MOOD. TAKE WITH FOOD. Aug 28, 2019 [id number] Aug 01 9 KIMBERLY TARIQ [facility] VENLAFAXINE HCL 75MG 24HR CAP,SA Discontinued TAKE 3 CAPSULES BY MOUTH ONCE A DAY FOR MOOD. TAKE WITH FOOD. February 05, 2020 [id number] Jul 01 9 KIMBERLY TARIQ [facility] Problems (Conditions): All historical and current Section Date Range: From patient's date of to the date document was create d. This section includes a list of Problems (Conditions) know n to [place] for the patient. It includes both active and inacti ve problems (conditions). The data comes from all [place] treatment facilities. Problem Status Problem Code Date of Onset Date of Resolution Comm ent(s) Provider Source Abnormality of Gait (ICD-9-CM 781.2) Active 781.2 GALILEA BENÍTEZ [facility] Achilles bursitis or tendinitis (ICD-9-CM 726.71) Active 726.71 [facility] Acquired right hallux valgus Active [id number] [facility]AN [facility] Ankle ulcer due to type 2 diabetes mellitus ([place] [address] 011239519) Active [id number] [facility]ON NEELY [facility] Bereavement (SNOMED CT 05328115) Active V62.89 [facility] Bilateral plantar fasciitis (SNOMED CT [id number]) Ac tive [id number] RILEY GALVAN [facility] BIPOLAR AFFECTIVE NOS Active 296.7 DEMETRA UREÑA [facility] Bipolar disorder (SNOMED CT 12549330) Active 48606225 [facility]LY BANG [facility] Bunion Active 727.1 MONICA MADDOX [facility] Carpal Tunnel Syndrome * (ICD-9-CM 354.0) Active 354.0 Oct 16, 2002 Entered By: GALILEA BENÍTEZ Comment: rt GALILEA BENÍTEZ [facility] Cerebral Palsy NEC (ICD-9-CM 343.8) Active 343.[address] [facility] Depression * (ICD-9-CM 311./300.4) Active 311. [facility]ON NEELY [facility] Derangement of meniscus Active 717.5 J an 2001 Entered By: DEMETRA UREÑA Comment: left knee, arthroscopy 11/23 DEMETRA UREÑA [facility] Diabetes mellitus (SNOMED CT 55351686) Active 35893200 SIMON NEELY [facility] Difficulty balancing Active 655536214 HARRISON NEELY [facility] Elevated Liver Function Tests (ICD-9-CM 794.8) Active 794.8 SIMON NEELY [facility] Enthesopathy of ankle and tarsus (ICD-9-CM 726.70/726.79) Active [address] [facility] Flat foot Active 734. MONICA [facility]ADDOX [facility] GERD * (ICD-9-CM 530.81) Active 530.81 SIMON NEELY [facility] Hip Pain (ICD-9-CM 719.45) Active 719.45 [facility]A [facility] Hyperkeratosis Active 701.1 MONICA [facility]ADDOX [facility] Hyperlipidemia * (ICD-9-CM 272.4) Active 272.4 SIMON NEELY [facility] Hypertension * (ICD-9-CM 401.9) Active 401.9 GALILEA BENÍTEZ [facility] Hypertension * (ICD-9-CM 401.9) Active 401.9 [facility] Insomnia * (ICD-9-CM 780.52) Active 780.52 [facility]OMAS [facility] Joint Pain Forearm Active 719.43 MEGANLEONIDAS S D[facility]ION [facility] Lower Leg Injury NOS Active 959.7 MEGAN,SUSSaritha Kaylah S DARION [facility] Morbid Obesity * (ICD-9-CM 278.01) Active 278.01 D[facility]ION [facility] Obesity * (ICD-9-CM 278.00) Active 278.00 GALILEA [facility]ST [facility] Onychomycosis (SNOMED CT 984978346) Active 110.1 [facility] Osteoarthosis Shoulder Active 715.91 MEGANVERNELL HUSSEIN S D[facility]ION [facility] Pain in joint involving shoulder region (ICD-9-CM 719.41) Active 71 9.41 [facility] Routine Gynecological examination Active V72.31 [facility] Sciatica * (ICD-9-CM 724.3) Active 724.3 SIMON CAMP [facility] Unspecified chest pain * (ICD-9-CM 786.50) Active 786.50 MARK VIVAS [facility] Unsteady when walking Active 77657345 HARRISON NEELY [facility] Urinary Incontinence * (ICD-9-CM 788.30) Active 788.30 JJ GAYTAN [facility] MUSCLE SPASM Inactive 728.85 May 29, 2007 Sep 02 Entered By: TONY BENÍTEZ Comment: shoulders TONY BENÍTEZ [facility] Radiology Reports: +/- 30 days of the encounter No Data Provided for This Section Pathology Reports: +/- 30 days of the encounter No Data Provided for This Section Encounter Notes: All associated encounter notes This section contains the clinical notes associated to the Encounter. Date/Time Encounter Note(s) Provider Source Jan 16, 2020 10:31 AM ADMINISTRATIVE NOTE: LOCAL TITLE: [place]-ADMINISTRATIVE NOTE (BP,O) STANDARD TITLE: ADMINISTRATIVE NOTE DATE OF NOTE: JAN 16, 2020@10:31 ENTRY DATE: JAN 16, 2020@10:32:04 AUTHOR: ELOISE HUYNH EXP COSIGNER: URGENCY: STATUS: COMPLETED [place]-ADMINISTRATIVE NOTE (BP,O) Has ADDENDA PHONE CALL ATTEMPT due to no show for today's appointment Patient was a no-call/no-show for scheduled [facility] appointment. Attempted to reach patient through [facility] portal as well as via phone x 2. Provider left generic message requesting a return phone call. PLAN OF CARE: 1. AMSA please follow up at [facility] convenience. /susie/ ELOISE HUYNH PSYCHIATRIST Signed: 01/16/2020 11:00 Receipt Acknowledged By: * AWAITING SIGNATURE * LUCIEN FAUST 01/17/2020 ADDENDUM STATUS: COMPLETED Left message for to return call for rescheduling 60min CONSULT from missed appt 01/16/20. /susie/ LUCIEN FAUST MSA Signed: 01/17/2020 14:46 ELOISE HUYNH [facility]
--- OUTSIDE RECORDS SUMMARY | 2020-03-28 08:21 | XMS REPORT | Encounter Summary ---
Author Author [facility] Address [address] [place] [address] Phone Unavailable Care Team Providers Care Shallot Packer Name Role Phone FLORINDASIMON PCP Unavailable Insurance [...] PART A Aug 25, 2011 PART A [id number] GADBERRY,CHARLANNE PATIENT MEDICARE (WNR) MEDICARE (M) PART B Aug 25, 2011 PART B [id number] GADBERRY,CHARLANNE PATIENT MEDICARE (WNR) MEDICARE (M) PART A Aug 25, 2011 PART A [id number] GADBERRY,CHARLANNE PATIENT MEDICARE (WNR) MEDICARE (M) PART B Aug 25, 2011 PART B [id number] GADBERRY,CHARLANNE PATIENT MEDICARE (WNR) MEDICARE (M) PART A Aug 25, 2011 PART A [id number] SANDRA MORELOS PATIENT MEDICARE (WNR) MEDICARE (M) PART B Aug 25, 2011 PART B [id number] [phone] SANDRA MORELOS PATIENT MEDICARE PART D (WNR) MEDICARE (M) PART D Sep 25, 2012 PART D [id number] SANDRA WHITMAN PATIENT Selected Encounter This section includes the information on record at [place] for the Encounter. Date/Time Encounter Type Encounter Description Reason Provider Source Jan 23, 2020 02:00 PM Outpatient Encounter TELEPHONE PRIMARY CAR E ICD-10-CM M25.569 Pain in unspecified knee with Provider Comments: Pain in unspecified Knee SIMON NEELY [facility] IHE Encounter Template Text not used by VA Assessments - Encounter Diagnoses This section includes the primary and secondary diag noses documented for the Encounter. Date/Time Primary/Secondary Diagnosis Diagnosis Name Provider Source Jan 23, 2020 02:00 PM PRIMARY Pain in unspecified knee BERNARDO DANIELLE Jan 23, 2020 02:00 PM SECONDARY Other general symptoms and signs BERNARDO SAMUEL Jan 23, 2020 02:00 PM SECONDARY Other specified counseling BERNARDO ODELL Jan 23, 2020 02:00 PM SECONDARY Type 2 diabetes mellitus w ithout complications BERNARDO SAMUEL [facility] Plan of Treatment: Future Appointments (+ 6 months) and Future Tests (+/- 45 day s) The Plan of Treatment section includes future care activities for the patient fr om all [place] treatment facilities. This section includes future appointments and fu ture orders which are active, pending or scheduled. Future Appointments This section includes appointments that were scheduled t o occur 6 months from the date of the Encounter, up to a maximum of 20 appointme nts. The data comes from all [place] treatment facilities. Appointment Date/Time Appointment Type Appointment Facili ty Name February 12, 2020 02:00 PM AMBULATORY - PSYCHIATRY DARION MARTINEZ [facility] Mar 24, 2020 08:30 AM AMBULATORY - PSYCHIATRY DARION MARTINEZ [facility] Apr 16, 2020 10:00 AM AMBULATORY - PSYCHIATRY DARION MARTINEZ [facility] May 12, 2020 10:00 AM AMBULATORY - PSYCHIATRY DARION MARTINEZ [facility] Surgical Procedures: All associated to the encounter No Data Provided for This Section Lab Results: +/- 30 days of the encounter No Data Provided for This Section Vital Signs: All taken on the encounter date This section contains inpatient and outpatient Vital Signs collected on the date of the Encounter. Date/Time Temperature Pulse Blood Pressure Respiratory Rate SP02 Pa in Height Weight Body Mass Index Source Jan 23, 2020 02:27 PM 5 GALINDO [facility] Immunizations: All administered on the encounter date No Data Provided for This Section Social History: Smoking Status (Most current) and Tobacco Use (All prior to enco unter date) This section includes the most current, and the historical, smoking and tobacco- related health factors from the [place] facility where the Encounter took place. Current Smoking Status This section includes the most current smoking, or tobacco -related health factor, from the [place] facility where the Encounter took place. Date/Time Current Smoking Status Comment Facility Jan 16, 2020 10:20 AM VA-TOBACCO NEVER USED [facility] Tobacco Use History This section includes a history of the smoking, or tobacco -related health factors, that were collected on or before the date of the Encoun ter. The data comes from the [place] facility where the Encounter took place. Date/Time Smoking Status/Tobacco Use Comment [facility] Nov 21, 2018 11:32 AM CURRENT NON-SMOKER GALINDO [facility] Nov 21, 2018 11:32 AM LIFETIME NON-TOBACCO USER GALINDO [facility] Feb 27, 2017 09:38 AM CURRENT NON-SMOKER GALINDO [facility] Feb 27, 2017 09:38 AM LIFETIME NON-TOBACCO USER GALINDO [facility] Sep 08, 2015 09:10 AM CURRENT NON-SMOKER GALINDO [facility] Sep 08, 2015 09:10 AM LIFETIME NON-TOBACCO USER GALINDO [facility] Jan 12, 2015 09:39 AM CURRENT NON-SMOKER GALINDO [facility] Jan 12, 2015 09:39 AM LIFETIME NON-TOBACCO USER GALINDO [facility] Jan 10, 2014 01:20 PM CURRENT NON-SMOKER GALINDO [facility] Jan 10, 2014 01:20 PM LIFETIME NON-TOBACCO USER GALINDO [facility] Oct 30, 2012 08:31 AM CURRENT NON-SMOKER GALINDO [facility] Oct 30, 2012 08:31 AM LIFETIME NON-TOBACCO USER GALINDO [facility] Jun 01, 2011 11:19 AM CURRENT NON-SMOKER GALINDO [facility] Jun 01, 2011 11:19 AM LIFETIME NON-TOBACCO USER GALINDO [facility] Mar 21, 2011 01:50 PM CURRENT NON-SMOKER GALINDO [facility] Mar 21, 2011 01:50 PM LIFETIME NON-TOBACCO USER GALINDO [facility] Mar 21, 2011 01:50 PM NON-TOBACCO USER GALINDO [facility] Aug 03, 2010 01:21 PM CURRENT NON-SMOKER GALINDO [facility] Aug 03, 2010 01:21 PM LIFETIME NON-TOBACCO USER GALINDO [facility] Jan 14, 2010 09:03 AM CURRENT NON-SMOKER [...] 2007 10:27 AM LIFETIME NON-TOBACCO USER GALINDO [facility] Advance Directives: All historical and current [...] docume nt. The data comes from all [place] facilities. Date Advance Directives Provider Source Sep 15, 2009 ADVANCE DIRECTIVE DISCUSSION JADE VARMA [facility] Jul 21, 2006 ADVANCE DIRECTIVE [facility] Jul 12, 2006 ADVANCE DIRECTIVE DISCUSSION SAV PAULSON [facility] Allergies and Adverse Reactions (ADRs): All historical and current Section Date Range: From patient's date of to the date document was create d. This section includes Allergies and Adverse Reactions (ADR s) on record with VA for the patient. The data comes from a ll [place] treatment facilities. It does not list Allergies/ADRs that were removed or entered in error. Some allergies/ADRs may be reported in t he Immunization section. Allergen Event Date Event Type Reaction(s) Severity Source ENALAPRIL Aug 22, 2017 Propensity to adverse reactions to drug (diso rder) [facility] ENALAPRIL May 04, 2007 Propensity to adverse reactions to drug ( disorder) Cough [facility] LEVAQUIN Aug 22, 2017 Propensity to adverse reactions to drug (diso rder) [facility] LEVAQUIN Oct 08, 2015 Propensity to adverse reactions to drug (disorder) Eruption [facility] 15 LISINOPRIL Aug 22, 2017 Propensity to adverse reactions to drug (diso rder) [facility] LISINOPRIL Jan 16, 2007 Propensity to adverse reactions to drug (disorder) Cough [facility] NIACIN Aug 22, 2017 Propensity to adverse reactions to drug (diso rder) [facility] NIACIN Oct 23, 2008 Propensity to adverse reactions to drug ( disorder) Eruption [facility] 15 Medications: VA dispensed (-15 months) and Non-VA Documented (Obtained Outside A) Section Date Range: 1) prescriptions processed by a VA pharmacy in the last 15 m [facility], and 2) all medications recorded in the [place] medical record as "non-VA medic ations". Pharmacy terms refer to VA pharmacy's work on prescriptions. VA patient s are advised to take their medications as instructed by their health care team. The data comes from all [place] treatment facilities. Glossary of Pharmacy Terms:Active = A prescription that can be filled at the local [place] pharmacy.Active: On Hold = An active prescription that will not be filled until pharmacy resolves the issue.Active: Susp = An active prescription that is not scheduled to be filled yet.Clinic Order = A medication received during a visit to a [place] clinic or emergency department (currently not available).Discontinued [...] other providers that was filled outside the [place]. Or, it may be an over the [...] BLOOD GLUCOSE TESTING 50 Jun 06, 2020 [id number] February 21, 2020 SIMON NEELY AMLODIPINE BESYLATE 10MG TAB Active TAKE ONE TABLET BY MOUTH EVERY MORNING 90 January 23, 2021 [id number] Jan 23, 2020 SIMON NEELY AMLODIPINE BESYLATE 10MG TAB Discontinued TAKE ONE TA BLET BY MOUTH EVERY MORNING 90 Nov 27, 2019 [id number] Oct 21, 2019 SIMON NEELY ATORVASTATIN [place] 20MG TAB Active TAKE ONE-HALF T ABLET BY MOUTH AT BEDTIME FOR CHOLESTEROL - REPORT ANY UNEXPLAINED MUSCLE PAIN/WEAKNESS TO YOUR PROVIDER TAKE IN PLACE OF CRESTOR, VA DOESNT SUPPLY CRESTOR, FOR CHOLESTEROL - REPORT ANY UNEXPLAINED MUSCLE PAIN/WEAKNESS TO YOUR PROVIDER TAKE IN PLACE OF CRESTOR, VA DOESNT SUPPLY CRESTOR, 45 January 23, 2021 [id number] Jan 23, 2020 HARRISON NEELY ATORVASTATIN [place] 20MG TAB Discontinued TAKE ONE-HALF T ABLET BY MOUTH AT BEDTIME FOR CHOLESTEROL - REPORT ANY UNEXPLAINED MUSCLE PAIN/WEAKNESS TO YOUR PROVIDER TAKE IN PLACE OF CRESTOR, VA DOESNT SUPPLY CRESTOR, FOR CHOLESTEROL - REPORT ANY UNEXPLAINED MUSCLE PAIN/WEAKNESS TO YOUR PROVIDER TAKE IN PLACE OF CRESTOR, VA DOESNT SUPPLY CRESTOR, 45 Dec 07, 2019 [id number] Mar 01, 2019 HARRISON NEELY [facility] BRIEF,SUPER PLUS ABSORB WITH BARRIERS UNDERWEAR X-LARGE ATTE NDS Active USE DIRECTED DIRECTED FOR INCONTINENCE 56 Nov 04, 2020 [id number] Nov 09, 2019 SIMON NEELY [facility] BRIEF,SUPER PLUS ABSORB WITH BARRIERS UNDERWEAR X-LARGE ATTE NDS Discontinued USE DIRECTED DIRECTED FOR INCONTINENCE 56 Apr 01, 2020 [id number] Aug 06, 2019 SIMON NEELY [facility] GLIPIZIDE 5MG TAB Active TAKE ONE TABLET BY M OUTH EVERY DAY BEFORE BREAKFAST FOR DIABETES. TAKE 30 MINUTES BEFORE EATING. 90 Apr 22, 2020 [id number] February 12, 2020 SIMON NEELY [facility] GLIPIZIDE 5MG TAB Discontinued TAKE ONE TABLET BY M OUTH EVERY DAY BEFORE BREAKFAST FOR DIABETES. TAKE 30 MINUTES BEFORE EATING. 90 Feb 242019 [id number] February 12, 2020 SIMON NEELY GLIPIZIDE 5MG TAB Discontinued TAKE ONE TABLET BY M OUTH EVERY DAY BEFORE BREAKFAST FOR DIABETES. TAKE 30 MINUTES BEFORE EATING. 90 January [id number] Nov 24, 2019 SIMON NEELY [facility] GLIPIZIDE 5MG TAB Discontinued TAKE ONE TABLET BY M OUTH EVERY DAY BEFORE BREAKFAST FOR DIABETES. TAKE 30 MINUTES BEFORE EATING. 90 Nov [id number] Sep 05, 2019 SIMON NEELY [facility] LANCET,SOFTCLIX Active USE LANCET BIW FOR TESTING BL OOD GLUCOSE DIRECTED 100 Jun 06, 2020 [id number] Jun 07, 2019 SIMON NEELY [facility] LITHIUM CARBONATE 300MG CAP Active TAKE 1 CAPSU LE BY MOUTH EVERY MORNING AND TAKE 3 CAPSULES BY MOUTH AT BEDTIME FOR MOOD. MUST MAKE AN APPT OR WILL TAPER AND DISCONTINUE MEDICATIONS 120 February 12, 2021 [id number] Mar 04, 2020 ELOISE HUYNH [facility] LITHIUM CARBONATE 300MG CAP Discontinued TAKE 1 CAPSU LE BY MOUTH EVERY MORNING AND TAKE 3 CAPSULES BY MOUTH AT BEDTIME FOR MOOD. MUST MAKE AN APPT OR WILL TAPER AND DISCONTINUE MEDICATIONS 120 Aug 06, 2020 [id number] Dec 16, 2019 KANG ZAYAS [facility] LITHIUM CARBONATE 300MG CAP Discontinued TAKE 1 CAPSU LE BY MOUTH EVERY MORNING AND TAKE 3 CAPSULES BY MOUTH AT BEDTIME FOR MOOD. MUST MAKE AN APPT OR WILL TAPER AND DISCONTINUE MEDICATIONS 120 Jun 10, 2020 [id number] Jul 19, 2019 KIMBERLY TARIQ [facility] LITHIUM CARBONATE 300MG CAP Discontinued TAKE 1 CAPSU LE BY MOUTH EVERY MORNING AND TAKE 3 CAPSULES BY MOUTH AT BEDTIME FOR MOOD. MUST MAKE AN APPT OR WILL TAPER AND DISCONTINUE MEDICATIONS 120 Jul 03, 2019 [id number] Jun 03, 2019 [facility]IQ [facility] LITHIUM CARBONATE 300MG CAP Discontinued TAKE 1 CAPSU LE BY MOUTH EVERY MORNING AND TAKE 3 CAPSULES BY MOUTH AT BEDTIME FOR MOOD. MUST MAKE AN APPT OR WILL TAPER AND DISCONTINUE MEDICATIONS 120 Mar 23, 2019 [id number] February 21, 2019 [facility]LY TARIQ [facility] LITHIUM CARBONATE 300MG CAP Discontinued TAKE 1 CAPSU LE BY MOUTH EVERY MORNING AND TAKE 3 CAPSULES BY MOUTH AT BEDTIME FOR MOOD. 120 Dec 18, 2019 [id number] Jan 11, 2019 [facility]LY BANG [facility] LITHIUM CARBONATE 300MG TAB,SA Discontinued TAKE [...] SPLIT, OR CHEW. 234 May 31, 2019 [id number] Apr 01, 2019 KIMBERLY BANG [facility] NO KNOWN NON-VA MEDS MISCELLANEOUS Non-VA Non-VA Documented by: MICHELLE BARTHOLOMEW Docume nted at: [facility] NO KNOWN NON-VA MEDS MISCELLANEOUS Non-VA Non-VA Documented by: GALILEA BENÍTEZ Docume nted at: [facility] OXYCODONE HCL 5MG TAB No n-VA TAKE ONE TABLET BY MOUTH EVERY 6 HOURS NEEDED Non-VA Docume nted by: SIMON NEELY Docume nted at: [facility] QUETIAPINE FUMARATE 100MG TAB Active TAKE ONE-HALF TABL ET BY MOUTH AT BEDTIME 15 Mar 25, 2021 [id number] Mar 24, 2020 JASSONUTELOISE [facility] TRAMADOL HCL 50MG TAB No n-VA TAKE ONE TABLET BY MOUTH EVERY 6 HOURS NEEDED Non-VA Docume nted by: SIMON NEELY Docume nted at: [facility] TRAZODONE HCL 100MG TAB Discontinued TAKE FOUR TABLET S BY MOUTH AT BEDTIME FOR MOOD OR SLEEP. 120 February 12, 2021 [id number] Mar 01, 2020 ELOISE HUYNH [facility] TRAZODONE HCL 100MG TAB Discontinued TAKE FOUR TABLET S BY MOUTH AT BEDTIME FOR MOOD OR SLEEP. 120 Aug 06, 2020 [id number] February 10, 2020 [facility]AS [facility] TRAZODONE HCL 100MG TAB Discontinued TAKE FOUR TABLET S BY MOUTH AT BEDTIME FOR MOOD OR SLEEP. 120 Jun 03, 2020 [id number] Jul 29, 2019 [facility]IM[facility]LY BANG [facility] TRAZODONE HCL 100MG TAB Discontinued TAKE FOUR TABLET S BY MOUTH AT BEDTIME FOR MOOD OR SLEEP. 120 February 05, 2020 [id number] May 06, 2019 [facility]IM[facility]LY BANG [facility] TRAZODONE HCL 100MG TAB Discontinued TAKE FOUR TABLET S BY MOUTH AT BEDTIME FOR MOOD OR SLEEP. 120 Sep 14, 2019 [id number] Jan 07, 2019 KIMBERLY BANG [facility] TROSPIUM CL 20MG TAB Active TAKE ONE TABLET BY MOUTH TWO TIMES A DAY FOR BLADDER. TAKE ON AN EMPTY STOMACH OR AT LEAST ONE HOUR BEFORE FOOD. PER DR. BUTLER 180 January 23, 2021 [id number] Mar 16, 2020 SIMON NEELY [facility] TROSPIUM CL 20MG TAB Discontinued TAKE ONE TABLET BY MOUTH TWO TIMES A DAY FOR BLADDER. TAKE ON AN EMPTY STOMACH OR AT LEAST ONE HOUR BEFORE FOOD. PER DR. BUTLER 180 Apr 01, 2020 [id number] Dec 17, 2019 SIMON NEELY [facility] VENLAFAXINE HCL 75MG 24HR CAP,SA Active TAKE 3 CAPSULES BY MOUTH ONCE A DAY FOR MOOD. TAKE WITH FOOD. 90 February 12, 2021 [id number] Mar 04, 2020 Arlette [facility]NH [facility] VENLAFAXINE HCL 75MG 24HR CAP,SA Discontinued TAKE 3 CAPSULES BY MOUTH ONCE A DAY FOR MOOD. TAKE WITH FOOD. 90 Aug 06, 2020 [id number] Jan 05 0 KANG ZAYAS [facility] VENLAFAXINE HCL 75MG 24HR CAP,SA Discontinued TAKE 3 CAPSULES BY MOUTH ONCE A DAY FOR MOOD. TAKE WITH FOOD. 90 Aug 28, 2019 [id number] Aug 01 9 KIMBERLY TARIQ [facility] VENLAFAXINE HCL 75MG 24HR CAP,SA Discontinued TAKE 3 CAPSULES BY MOUTH ONCE A DAY FOR MOOD. TAKE WITH FOOD. 90 February 05, 2020 [id number] Jul 01 9 KIMBERLY TARIQ [facility] Problems (Conditions): All historical and current Section Date Range: From patient's date of to the date document was create d. This section includes a list of Problems (Conditions) know n to [place] for the patient. It includes both active and inacti ve problems (conditions). The data comes from all [place] treatment facilities. Problem Status Problem Code Date of Onset Date of Resolution Comm ent(s) Provider Source Abnormality of Gait (ICD-9-CM 781.2) Active 781.2 GALILEA BENÍTEZ [facility] Achilles bursitis or tendinitis (ICD-9-CM 726.71) Active 726.71 RILEY GALVAN [facility] Acquired right hallux valgus Active [id number] RILEY GALVAN [facility] Ankle ulcer due to type 2 diabetes mellitus ([place] [address] [id number]) Active 89552032725095 SIMON NEELY [facility] Bereavement (SNOMED CT 54127716) Active V62.89 SIMON NEELY [facility] Bilateral plantar fasciitis (SNOMED CT [id number]) Ac tive [id number] RILEY GALVAN [facility] BIPOLAR AFFECTIVE NOS Active 296.7 DEMETRA UREÑA [facility] Bipolar disorder (SNOMED CT 87678224) Active 31933375 KIMBERLY BANG [facility] Bunion Active 727.1 MONICA MADDOX [facility] Carpal Tunnel Syndrome * (ICD-9-CM 354.0) Active 354.0 Oct 16, 2002 Entered By: GALILEA BENÍTEZ Comment: rt GALILEA BENÍTEZ [facility] Cerebral Palsy NEC (ICD-9-CM 343.8) Active 343.8 SEPIDEH NELSON [facility] Depression * (ICD-9-CM 311./300.4) Active 311. SIMON NEELY [facility] Derangement of meniscus Active 717.5 J an 2001 Entered By: DEMETRA UREÑA Comment: left knee, arthroscopy 11/23 DEMETRA UREÑA [facility] Diabetes mellitus (SNOMED CT 15038092) Active 28908912 SIMON NEELY [facility] Difficulty balancing Active 429274257 HARRISON NEELY [facility] Elevated Liver Function Tests (ICD-9-CM 794.8) Active 794.8 SIMON NEELY [facility] Enthesopathy of ankle and tarsus (ICD-9-CM 726.70/726.79) Active 72 6.70 BECCA JONES [facility] Flat foot Active 734. MONICA MADDOX [facility] GERD * (ICD-9-CM 530.81) Active 530.81 SIMON NEELY [facility] Hip Pain (ICD-9-CM 719.45) Active 719.45 SIMON YA [facility] Hyperkeratosis Active 701.1 MONICA MADDOX ROBAnahi MARTINEZ [facility] Hyperlipidemia * (ICD-9-CM 272.4) Active 272.4 SIMON NEELY [facility] Hypertension * (ICD-9-CM 401.9) Active 401.9 GALILEA BENÍTEZ [facility] Hypertension * (ICD-9-CM 401.9) Active 401.9 SIMON NEELY [facility] Insomnia * (ICD-9-CM 780.52) Active 780.52 SIMON THOMAS [facility] Joint Pain Forearm Active 719.43 LEONIDAS GUZMAN [facility] Lower Leg Injury NOS Active 959.7 SHARRI GUZMAN [facility] Morbid Obesity * (ICD-9-CM 278.01) Active 278.01 DARION [facility] Obesity * (ICD-9-CM 278.00) Active 278.00 GALILEA [facility] Onychomycosis (SNOMED CT 869107684) Active 110.1 SIMON NEELY [facility] Osteoarthosis Shoulder Active 715.91 VERNELL GUZMAN [facility] Pain in joint involving shoulder region (ICD-9-CM 719.41) Active 71 9.41 SIMON NEELY [facility] Routine Gynecological examination Active V72.31 SIMON NEELY [facility] Sciatica * (ICD-9-CM 724.3) Active 724.3 SIMON CAMP [facility] Unspecified chest pain * (ICD-9-CM 786.50) Active 786.50 MARK VIVAS [facility] Unsteady when walking Active [id number] HARRISON NEELY J. DOLE [facility] Urinary Incontinence * (ICD-9-CM 788.30) Active 788.30 JJ GAYTAN [facility] MUSCLE SPASM Inactive 728.85 May 29, 2007 Sep 02 Entered By: TONY BENÍTEZ Comment: shoulders TONY BENÍTEZ [facility] Radiology Reports: +/- 30 days of the encounter No Data Provided for This Section Pathology Reports: +/- 30 days of the encounter No Data Provided for This Section Encounter Notes: All associated encounter notes This section contains the clinical notes associated to the Encounter. Date/Time Encounter Note(s) Provider Source Jan 23, 2020 02:52 PM MEDICATION MGT NOTE: LOCAL TITLE: WI-MEDICATION RECONCILIATION (BP,O) STANDARD TITLE: MEDICATION MGT NOTE DATE OF NOTE: JAN 23, 2020@14:52 ENTRY DATE: JAN 23, 2020@14:53:05 AUTHOR: SIMON NEELY EXP COSIGNER: URGENCY: STATUS: COMPLETED MEDICATION RECONCILIATION Allergies: NIACIN, LEVAQUIN Allergies reviewed, edited in CPRS as appropriate and confirmed by patient: Yes Active Outpatient Medications (including Supplies): Outpatient Medications Status = 1) ACCU-CHEK MACI PLUS(GLUCOSE) TEST STRIP USE 1 STRIP ACTIVE FOR TESTING TWO TIMES PER WEEK FOR BLOOD GLUCOSE TESTING 2) BRIEF,PROTECTIVE SUPER ABS XLG ATTENDS USE ACTIVE DIRECTED DIRECTED FOR INCONTINENCE 3) GLIPIZIDE 5MG TAB TAKE ONE TABLET BY MOUTH EVERY DAY ACTIVE (S) BEFORE BREAKFAST FOR DIABETES. TAKE 30 MINUTES BEFORE EATING. 4) LANCET,SOFTCLIX USE LANCET TWICE A WEEK FOR ACTIVE TESTING BLOOD GLUCOSE DIRECTED 5) LITHIUM CARBONATE 300MG CAP TAKE ONE CAPSULE BY MOUTH ACTIVE EVERY MORNING AND TAKE THREE CAPSULES AT BEDTIME FOR MOOD. MUST MAKE AN APPT OR WILL TAPER AND DISCONTINUE MEDICATIONS 6) TRAZODONE HCL 100MG TAB TAKE FOUR TABLETS BY MOUTH AT ACTIVE BEDTIME FOR MOOD OR SLEEP. 7) TROSPIUM CL 20MG TAB TAKE ONE TABLET BY MOUTH TWO ACTIVE TIMES A DAY FOR BLADDER. TAKE ON AN EMPTY STOMACH OR AT LEAST ONE HOUR BEFORE FOOD. PER DR. BUTLER 8) VENLAFAXINE HCL 75MG 24HR SA CAP TAKE THREE CAPSULES ACTIVE BY MOUTH ONCE A DAY FOR MOOD. TAKE WITH FOOD. Non-VA Medications Status = 1) Non-VA OXYCODONE HCL 5MG TAB 5MG MOUTH EVERY 6 HOURS ACTIVE NEEDED 2) Non-VA TRAMADOL HCL 50MG TAB 50MG MOUTH EVERY 6 HOURS ACTIVE NEEDED 10 Total Medications Compared newly ordered medications and medication changes to active medications and non-VA medications, and then reviewed medications with patient and/or caregiver. All discrepancies noted and reconciled. Patients, or caregivers, was provided with reconciled medications list and advised to provide to all non VA providers. Potential adverse reactions of new medications were discussed with the patient. Patient/family/caregiver educated and evaluated for understanding on Medications. The list was reviewed with and given to the patient/family/caregiver who were also educated on importance of sharing medication list with all VA providers and non-VA providers. For questions, please call your team nurse. Pertinent lab reviewed: N/A. Level of Understanding: Unable to assess Comments: igor/ SIMON NEELY [facility]- Signed: 01/23/2020 14:53 SIMON NEELY [facility] Jan 23, 2020 02:25 PM NURSE PRACTITIONER TELEPHONE ENCOUNTER NOTE: LOCAL TITLE: WI-HOISTING MACHINE OPERATOR/TELEPHONE STANDARD TITLE: NURSE PRACTITIONER TELEPHONE ENCOUNTER NOTE DATE OF NOTE: JAN 23, 2020@14:25 ENTRY DATE: JAN 23, 2020@14:26:04 AUTHOR: SIMON NEELY EXP COSIGNER: URGENCY: STATUS: COMPLETED Follow Up Colonoscopy: Colonoscopy is due based on information available to this reminder. Defer reminder for 4 months Reason for deferral: discuss face to face. WI-PAIN: Pain Reassessment-Patient's updated pain score after intervention is: PAIN Score 5 Pain Documentation: Plan of Care: ...Interventions: Medication ... pmd durgeon managing pain. WI-FOOT EXAM (PAVE): Foot Assessment, no c/o via phone conversation. Mammogram Screening: See orders tab for any orders that may have been entered. recent non VA consult places for mammogram, within time frame. s. this pcp called pt. at home, pt. gives permission for the call, pt. states she recently had knee surg. done per [facility] dr. mcfarland, pt. states she is taking pain medication, pt. states she is getting around ok but slow, she states she would like to come over for fasting lab sometime soon, advised pt. will most likely schedule her in 1-2 months for fasting lab, pt. agrees with plan, she will cont. with management and follow up with [facility] surgeon as directed, /susie/ SIMON NEELY PAYROLL REPRESENTATIVE- Signed: 01/23/2020 14:52 SIMON NEELY [facility] Jan 23, 2020 01:58 PM NURSING OUTPATIENT NOTE: LOCAL TITLE: WI-NURSE/[facility] STANDARD TITLE: NURSING OUTPATIENT NOTE DATE OF NOTE: JAN 23, 2020@13:58 ENTRY DATE: JAN 23, 2020@13:58:35 AUTHOR: AISHA CARREON COSIGNER: URGENCY: STATUS: COMPLETED Reason for appointment: PCP Appointment Reason for appointment: Other: annual via tele Is the patient diabetic? Yes - patient is a diabetic. Last HGBA1c value and time done: HGBA1c < 7, repeat in 6 months HGBA1c > 7, repeat in 3 months What is your goal for today's visit? *Required Is there anything in your life that worries or stresses you that we may assist you with today? *Required No Are you registered for [facility] ([facility])? No - Are you interested in registering? No If 'yes' please hand [facility] brochure. WI-ABUSE/NEGLECT SCREENING: Signs/Symptoms of Abuse: Abuse/Neglect Questions Yes Does the patient show any signs of abuse or neglect? No REPORT OF SUSPECTED ABUSE OR NEGLECT SOCIAL WORK CONSULTS: WI-LEARNING ASSESSMENT: Patient Learning Assessment Learning Needs Assessment ...Patient Readiness to Learn (Check if individual ready to learn): ...Patient is ready to learn. Will Patient Have Difficulty Understanding Information: ...No Educational Needs: Do you need further information with: Safe & effective use of medications? ...No Safe & effective use of equipment? (Home O2, prosthetics, Rehab Medicine) ...No Potential food/drug interaction? ...No Modified diet? (If referral -- to Dietitian) ...No Rehabilitation techniques or help with independent function? (If referral -- to Rehab Medicine) ...No Patient taught on rehabilitation techniques today. Community resources (If referral -- to [facility]/) ...No When/how to obtain further treatment? ...Yes Patient responsibilities in the treatment process? (Booklet) ...No Hygiene? (If taught - Handout/PHE given that includes grooming, bathing, oral health, hair and nail care and use of toilet.) ...No Information about disease process? (If taught - appropriate handout given) ...No Advanced directives? (Booklet) ...No VISN 15-INFLUENZA IMMUNIZATION : [id number] INFLUENZA IMMUNIZATION V1.0 Vaccine not given: Patient indicated influenza vaccination was received at another facility. Date: June, Exact date is unknown Location: [facility] Pneumococcal PPSV23 (Pneumovax): The patient declines to receive the recommended dose of pneumococcal polysaccharide vaccine PPSV23 (Pneumovax). Depression Screening: PHQ-2+I9 Depression Screening Score: 0 The score on this administration is 0, which indicates a negative screen on the Depression Scale over the past two weeks. Suicide Screening Score: 0 The results of this administration indicates a NEGATIVE primary screen for Risk of Suicide over the last 2 weeks. Over the past two weeks, how often have you been bothered by the following problems? 1. Little interest or pleasure in doing things Not at all 2. Feeling down, depressed, or hopeless Not at all 3. Thoughts that you would be better off or of hurting yourself in some way Not at all WI-PAIN: Pain Reassessment-Patient's updated pain score after intervention is: PAIN Score 8 Pain Documentation: Pain Assessment: Location: (specify location in comments) Pain Scale (0-10): 10 (11/26/2018 10:42) 8 ...Frequency: Continuous ...Quality: Dull Ache ...Present pain management regime: ... tramadol PRN; oxycodone WI-FALL RISK OP: GOMEZ FALL SCALE The Gomez Fall scale was performed and score was 50. This is indicative of high risk for falls. History of falling in past 3 months? Yes Secondary diagnosis: No Ambulatory aid: None/bedrest/nurse assist Intravenous therapy/Heparin lock: No Gait/Transferring: Weakness Mental Status: Overestimates/forgets limitations OTHER RISK FACTORS History of Falling Fall History: has had 2 falls since sx in november r/t left knee replacement No history of injury with recent falls. Patient risk for falling: Medium/High Risk Pamphlet given to patient/family Is patient at risk for falling? Patient is at risk for falling. Will alert provider for follow-up. Is the patient 75 years of age or older? No Tobacco Use Screening: The patient has never used tobacco. /susie/ AISHA CARREON LPN Signed: 01/23/2020 14:10 AISHA CARREON [facility]
--- OUTSIDE RECORDS SUMMARY | 2020-03-28 08:21 | XMS REPORT | Encounter Summary ---
Author Author [facility] Affmescalero service unitSANDRA Organization [facility] Affai rs Address [address] [place] [address] Phone Unavailable Care Team Providers Care Director Power Name Role Phone FLORINDA SIMON PCP Unavailable [...] PART A Aug 25, 2011 PART A [id number] GADBERRY,CHARLANNE PATIENT MEDICARE (WNR) MEDICARE (M) PART B Aug 25, 2011 PART B [id number] GADBERRY,CHARLANNE PATIENT MEDICARE (WNR) MEDICARE (M) PART A Aug 25, 2011 PART A [id number] GADBERRY,CHARLANNE PATIENT MEDICARE (WNR) MEDICARE (M) PART B Aug 25, 2011 PART B [id number] GADBERRY,CHARLANNE PATIENT MEDICARE (WNR) MEDICARE (M) PART A Aug 25, 2011 PART A [id number] SANDRA MORELOS PATIENT MEDICARE (WNR) MEDICARE (M) PART B Aug 25, 2011 PART B [id number] SANDRA MORELOS PATIENT MEDICARE PART D (WNR) MEDICARE (M) PART D Sep 25, 2012 PART D [id number] SANDRA WHITMAN PATIENT Selected Encounter This section includes the information on record at DC for the Encounter. Date/Time Encounter Type Encounter Description Reason Provider Source Oct 11, 2019 01:23 PM Outpatient Encounter TELEPHONE MH ICD-1 0-CM F31.32 Bipolar disorder, current episode depressed, moderate with Provider Comments: Bipolar disorder ([facility] [id number]) AMANDA DAUGHERTY [facility] IHE Encounter Template Text not used by DC Assessments - Encounter Diagnoses This section includes the primary and secondary diag noses documented for the Encounter. Date/Time Primary/Secondary Diagnosis Diagnosis Name Provider Source Oct 11, 2019 01:23 PM PRIMARY Bipolar disorder, current episode depressed, moderate AMANDA DAUGHERTY [facility] Oct 11, 2019 01:23 PM SECONDARY Other specified counseling AMANDA DAUGHERTY [facility] Plan of Treatment: Future Appointments (+ 6 months) and Future Tests (+/- 45 day s) The Plan of Treatment section includes future care activities for the patient fr om all DC treatment facilities. This section includes future appointments and fu ture orders which are active, pending or scheduled. Future Appointments This section includes appointments that were scheduled t o occur 6 months from the date of the Encounter, up to a maximum of 20 appointme nts. The data comes from all DC treatment facilities. Appointment Date/Time Appointment Type Appointment Facili ty Name Nov 06, 2019 02:00 PM AMBULATORY - PSYCHIATRY DARION Cid [facility] Nov 06, 2019 02:01 PM AMBULATORY - PSYCHIATRY [facility] Nov 27, 2019 11:00 AM AMBULATORY - MEDICINE [facility] Jan 15, 2020 10:30 AM AMBULATORY - MEDICINE [facility] Jan 16, 2020 10:00 AM AMBULATORY - PSYCHIATRY DARION Cid [facility] Jan 23, 2020 02:00 PM AMBULATORY - MEDICINE [facility] February 12, 2020 02:00 PM AMBULATORY - PSYCHIATRY DARION Cid [facility] Mar 24, 2020 08:30 AM AMBULATORY - PSYCHIATRY [facility] Surgical Procedures: All associated to the encounter No Data Provided for This Section Lab Results: +/- 30 days of the encounter This section includes the Chemistry and Hematology Lab R esults on record with DC for the patient. Radiology Reports and Pathology [...] and tobacco- related health factors from the DC facility where the Encounter took place. Current Smoking Status This section includes the most current smoking, or tobacco -related health factor, from the DC facility where the Encounter took place. Date/Time Current Smoking Status Comment Facility Dec 28, 2015 10:28 AM CURRENT NON-SMOKER [place] Jose Roberto [facility] Tobacco Use History This section includes a history of the smoking, or tobacco -related health factors, that were collected on or before the date of the Encoun ter. The data comes from the DC facility where the Encounter took place. Date/Time Smoking Status/Tobacco Use Comment [facility] Dec 28, 2015 10:28 AM LIFETIME NON-TOBACCO USER DARION MARTINEZ [facility] May 14, 2015 10:33 AM CURRENT [facility]-SMOKER [facility] May 14, 2015 10:33 AM LIFETIME NON-TOBACCO USER [facility] Dec 08, 2014 10:25 AM CURRENT NON-SMOKER DARION MARTINEZ [facility] Dec 08, 2014 10:25 AM LIFETIME NON-TOBACCO USER DARION MARTINEZ [facility] Oct 20, 2014 09:33 AM CURRENT NON-SMOKER DARION MARTINEZ [facility] Oct 20, 2014 09:33 AM LIFETIME NON-TOBACCO USER DARION MARTINEZ [facility] Jul 22, 2014 09:41 AM CURRENT NON-SMOKER DARION MARTINEZ [facility] Jul 22, 2014 09:41 AM LIFETIME NON-TOBACCO USER DARION MARTINEZ [facility] February 04, 2014 10:04 AM NON-TOBACCO USER DARION MARTINEZ [facility] Dec 16, 2013 11:26 AM CURRENT NON-SMOKER DARION MARTINEZ [facility] Dec 16, 2013 11:26 AM LIFETIME NON-TOBACCO USER DARION MARTINEZ [facility] Jan 14, 2013 01:14 PM CURRENT NON-SMOKER DARION MARTINEZ [facility] Jan 14, 2013 01:14 PM LIFETIME NON-TOBACCO USER DARION MARTINEZ [facility] February 14, 2012 09:57 AM CURRENT NON-SMOKER DARION MARTINEZ [facility] February 14, 2012 09:57 AM LIFETIME NON-TOBACCO USER DARION MARTINEZ [facility] Mar 14, 2011 01:13 PM CURRENT NON-SMOKER DARION MARTINEZ [facility] Mar 14, 2011 01:13 PM LIFETIME NON-TOBACCO USER DARION Cid [facility] Apr 15, 2010 09:39 AM CURRENT NON-SMOKER DARION MARTINEZ [facility] Apr 15, 2010 09:39 AM LIFETIME NON-TOBACCO USER DARION MARTINEZ [facility] Mar 09, 2010 02:30 PM CURRENT NON-SMOKER DARION MARTINEZ [facility] Mar 09, 2010 02:30 PM LIFETIME NON-TOBACCO USER [facility] Nov 06, 2009 10:50 AM CURRENT NON-SMOKER DARION MARTINEZ [facility] Nov 06, 2009 10:50 AM LIFETIME NON-TOBACCO USER [facility] Advance Directives: All historical and current Section Date Range: From patient's date of to the date document was create d. This section includes ALL of a patient's completed or amen ded DC Advance and Rescinded Directives. The entries below indicate that a direc tive exists for the patient, but an actual copy is not included with this docume nt. The data comes from all [place] facilities. Date Advance Directives Provider Source Sep 15, 2009 ADVANCE DIRECTIVE DISCUSSION JADE VARMA [facility] Jul 21, 2006 ADVANCE DIRECTIVE [facility] Jul 12, 2006 ADVANCE DIRECTIVE DISCUSSION SAV PAULSON [facility] Allergies and Adverse Reactions (ADRs): All historical and current Section Date Range: From patient's date of to the date document was create d. This section includes Allergies and Adverse Reactions (ADR s) on record with VA for the patient. The data comes from a ll DC treatment facilities. It does not list Allergies/ADRs that were removed or entered in error. Some allergies/ADRs may be reported in t he Immunization section. Allergen Event Date Event Type Reaction(s) Severity Source ENALAPRIL Aug 22, 2017 Propensity to adverse reactions to drug (diso rder) [facility] ENALAPRIL May 04, 2007 Propensity to adverse reactions to drug ( disorder) Cough [facility] LEVAQUIN Aug 22, 2017 Propensity to adverse reactions to drug (diso [facility]der) [facility] Oct 08, 2015 Propensity to adverse reactions to drug (disorder) Eruption [facility] LISINOPRIL Aug 22, 2017 Propensity to adverse reactions to drug (diso rder) [facility] LISINOPRIL Jan 16, 2007 Propensity to adverse reactions to drug (disorder) Cough [facility] NIACIN Aug 22, 2017 Propensity to adverse reactions to drug (diso rder) [facility] NIACIN Oct 23, 2008 Propensity to adverse reactions to drug ( disorder) Eruption [facility] Medications: VA dispensed (-15 months) and Non-VA Documented (Obtained Outside A) Section Date Range: 1) prescriptions processed by a VA pharmacy in the last 15 m ont, and 2) all medications recorded in the DC medical record as "non-VA medic ations". Pharmacy terms refer to DC pharmacy's work on prescriptions. VA patient s are advised to take their medications as instructed by their health care team. The data comes from all DC treatment facilities. Glossary of Pharmacy Terms:Active = A prescription that can be filled at the local DC pharmacy.Active: On Hold = An active prescription that will not be filled until pharmacy resolves the issue.Active: Susp = An active prescription that is not scheduled to be filled yet.Clinic Order = A medication received during a visit to a DC clinic or emergency department (currently not available).Discontinued [...] BLOOD GLUCOSE TESTING 50 Jun 06, 2020 [id number] February 21, 2020 SIMON NEELY AMLODIPINE BESYLATE 10MG TAB Active TAKE ONE TABLET BY MOUTH EVERY MORNING 90 January 23, 2021 [id number] Jan 23, 2020 SIMON NEELY AMLODIPINE BESYLATE 10MG TAB Discontinued TAKE ONE TA BLET BY MOUTH EVERY MORNING 90 Nov 27, 2019 [id number] Oct 21, 2019 SIMON NEELY ATORVASTATIN CA 20MG TAB Active TAKE ONE-HALF T ABLET BY MOUTH AT BEDTIME FOR CHOLESTEROL - REPORT ANY UNEXPLAINED MUSCLE PAIN/WEAKNESS TO YOUR PROVIDER TAKE IN PLACE OF CRESTOR, VA DOESNT SUPPLY CRESTOR, FOR CHOLESTEROL - REPORT ANY UNEXPLAINED MUSCLE PAIN/WEAKNESS TO YOUR PROVIDER TAKE IN PLACE OF CRESTOR, VA DOESNT SUPPLY CRESTOR, 45 January 23, 2021 [id number] Jan 23, 2020 HARRISON NEELY ATORVASTATIN CA 20MG TAB Discontinued TAKE ONE-HALF T ABLET BY MOUTH AT BEDTIME FOR CHOLESTEROL - REPORT ANY UNEXPLAINED MUSCLE PAIN/WEAKNESS TO YOUR PROVIDER TAKE IN PLACE OF CRESTOR, VA DOESNT SUPPLY CRESTOR, FOR CHOLESTEROL - REPORT ANY UNEXPLAINED MUSCLE PAIN/WEAKNESS TO YOUR PROVIDER TAKE IN PLACE OF CRESTOR, VA DOESNT SUPPLY CRESTOR, 45 Dec 07, 2019 [id number] Mar 01, 2019 HARRISON NEELY BRIEF,SUPER PLUS ABSORB WITH BARRIERS UNDERWEAR X-LARGE ATTE NDS Active USE DIRECTED DIRECTED FOR INCONTINENCE 56 Nov 04, 2020 [id number] Nov 09, 2019 SIMON NEELY BRIEF,SUPER PLUS ABSORB WITH BARRIERS UNDERWEAR X-LARGE ATTE NDS Discontinued USE DIRECTED DIRECTED FOR INCONTINENCE 56 Apr 01, 2020 [id number] Aug 06, 2019 SIMON NEELY GLIPIZIDE 5MG TAB Active TAKE ONE TABLET BY M OUTH EVERY DAY BEFORE BREAKFAST FOR DIABETES. TAKE 30 MINUTES BEFORE EATING. 90 Apr 22, 2020 [id number] February 12, 2020 SIMON NEELY GLIPIZIDE 5MG TAB Discontinued TAKE ONE TABLET BY M OUTH EVERY DAY BEFORE BREAKFAST FOR DIABETES. TAKE 30 MINUTES BEFORE EATING. 90 Feb 242019 [id number] February 12, 2020 SIMON NEELY GLIPIZIDE 5MG TAB Discontinued TAKE ONE TABLET BY M OUTH EVERY DAY BEFORE BREAKFAST FOR DIABETES. TAKE 30 MINUTES BEFORE EATING. 90 January [id number] Nov 24, 2019 SIMON NEELY [facility] GLIPIZIDE 5MG TAB Discontinued TAKE ONE TABLET BY M OUTH EVERY DAY BEFORE BREAKFAST FOR DIABETES. TAKE 30 MINUTES BEFORE EATING. 90 Nov [id number] Sep 05, 2019 SIMON NEELY [facility] LANCET,SOFTCLIX Active USE LANCET BIW FOR TESTING BL OOD GLUCOSE DIRECTED 100 Jun 06, 2020 [id number] Jun 07, 2019 SIMON NEELY [facility] LITHIUM CARBONATE 300MG CAP Active TAKE 1 CAPSU LE BY MOUTH EVERY MORNING AND TAKE 3 CAPSULES BY MOUTH AT BEDTIME FOR MOOD. MUST MAKE AN APPT OR WILL TAPER AND DISCONTINUE MEDICATIONS 120 February 12, 2021 [id number] Mar 04, 2020 [facility] LITHIUM CARBONATE 300MG CAP Discontinued TAKE 1 CAPSU LE BY MOUTH EVERY MORNING AND TAKE 3 CAPSULES BY MOUTH AT BEDTIME FOR MOOD. MUST MAKE AN APPT OR WILL TAPER AND DISCONTINUE MEDICATIONS 120 Aug 06, 2020 [id number] Dec 16, 2019 [facility]ANG [facility] LITHIUM CARBONATE 300MG CAP Discontinued TAKE 1 CAPSU LE BY MOUTH EVERY MORNING AND TAKE 3 CAPSULES BY MOUTH AT BEDTIME FOR MOOD. MUST MAKE AN APPT OR WILL TAPER AND DISCONTINUE MEDICATIONS 120 Jun 10, 2020 [id number] Jul 19, 2019 [facility]LY [facility] LITHIUM CARBONATE 300MG CAP Discontinued TAKE 1 CAPSU LE BY MOUTH EVERY MORNING AND TAKE 3 CAPSULES BY MOUTH AT BEDTIME FOR MOOD. MUST MAKE AN APPT OR WILL TAPER AND DISCONTINUE MEDICATIONS 120 Jul 03, 2019 [id number] Jun 03, 2019 [facility] LITHIUM CARBONATE 300MG CAP Discontinued TAKE 1 CAPSU LE BY MOUTH EVERY MORNING AND TAKE 3 CAPSULES BY MOUTH AT BEDTIME FOR MOOD. MUST MAKE AN APPT OR WILL TAPER AND DISCONTINUE MEDICATIONS 120 Mar 23, 2019 [id number] February 21, 2019 KIMBERLY TARIQ [facility] LITHIUM CARBONATE 300MG CAP Discontinued TAKE 1 CAPSU LE BY MOUTH EVERY MORNING AND TAKE 3 CAPSULES BY MOUTH AT BEDTIME FOR MOOD. 120 Dec 18, 2019 [id number] Jan 11, 2019 [facility]ANG [facility] LITHIUM CARBONATE 300MG TAB,SA Discontinued TAKE ONE [...] SPLIT, OR CHEW. 234 May 31, 2019 [id number] Apr 01, 2019 [facility]ANG [facility] NO KNOWN NON-VA MEDS MISCELLANEOUS Non-VA Non-VA Documented by: MICHELLE BARTHOLOMEW Docume nted at: [facility] NO KNOWN NON-VA MEDS MISCELLANEOUS Non-VA Non-VA Documented by: GALILEA BENÍTEZ Docume nted at: [facility] OXYCODONE HCL 5MG TAB No n-VA TAKE ONE TABLET BY MOUTH EVERY 6 HOURS NEEDED Non-VA Docume nted by: SIMON NEELY Docume nted at: [facility] QUETIAPINE FUMARATE 100MG TAB Active TAKE ONE-HALF TABL ET BY MOUTH AT BEDTIME 15 Mar 25, 2021 [id number] Mar 24, 2020 [facility] TRAMADOL HCL 50MG TAB No n-VA TAKE ONE TABLET BY MOUTH EVERY 6 HOURS NEEDED Non-VA Docume nted by: SIMON NEELY Docume nted at: GALINDO [facility] TRAZODONE HCL 100MG TAB Discontinued TAKE FOUR TABLET S BY MOUTH AT BEDTIME FOR MOOD OR SLEEP. 120 February 12, 2021 [id number] Mar 01, 2020 ELOISE HUYNH [facility] TRAZODONE HCL 100MG TAB Discontinued TAKE FOUR TABLET S BY MOUTH AT BEDTIME FOR MOOD OR SLEEP. 120 Aug 06, 2020 [id number] February 10, 2020 [facility]AS [facility] TRAZODONE HCL 100MG TAB Discontinued TAKE FOUR TABLET S BY MOUTH AT BEDTIME FOR MOOD OR SLEEP. 120 Jun 03, 2020 [id number] Jul 29, 2019 KIMBERLY BANG [facility] TRAZODONE HCL 100MG TAB Discontinued TAKE FOUR TABLET S BY MOUTH AT BEDTIME FOR MOOD OR SLEEP. 120 February 05, 2020 [id number] May 06, 2019 KIMBERLY BANG [facility] TRAZODONE HCL 100MG TAB Discontinued TAKE FOUR TABLET S BY MOUTH AT BEDTIME FOR MOOD OR SLEEP. 120 Sep 14, 2019 [id number] Jan 07, 2019 KIMBERLY BANG [facility] TROSPIUM CL 20MG TAB Active TAKE ONE TABLET BY MOUTH TWO TIMES A DAY FOR BLADDER. TAKE ON AN EMPTY STOMACH OR AT LEAST ONE HOUR BEFORE FOOD. PER DR. BUTLER 180 January 23, 2021 [id number] Mar 16, 2020 SIMON NEELY [facility] TROSPIUM CL 20MG TAB Discontinued TAKE ONE TABLET BY MOUTH TWO TIMES A DAY FOR BLADDER. TAKE ON AN EMPTY STOMACH OR AT LEAST ONE HOUR BEFORE FOOD. PER DR. BUTLER 180 Apr 01, 2020 [id number] Dec 17, 2019 SIMON NEELY [facility] VENLAFAXINE HCL 75MG 24HR CAP,SA Active TAKE 3 CAPSULES BY MOUTH ONCE A DAY FOR MOOD. TAKE WITH FOOD. 90 February 12, 2021 [id number] Mar 04, 2020 Arlette HUYNH [facility] VENLAFAXINE HCL 75MG 24HR CAP,SA Discontinued TAKE 3 CAPSULES BY MOUTH ONCE A DAY FOR MOOD. TAKE WITH FOOD. 90 Aug 06, 2020 [id number] Jan 05 0 KANG ZAYAS [facility] VENLAFAXINE HCL 75MG 24HR CAP,SA Discontinued TAKE 3 CAPSULES BY MOUTH ONCE A DAY FOR MOOD. TAKE WITH FOOD. 90 Aug 28, 2019 [id number] Aug 01 9 KIMBERLY TARIQ [facility] VENLAFAXINE HCL 75MG 24HR CAP,SA Discontinued TAKE 3 CAPSULES BY MOUTH ONCE A DAY FOR MOOD. TAKE WITH FOOD. 90 February 05, 2020 [id number] Jul 01 9 KIMBERLY TARIQ [facility] Problems (Conditions): All historical and current Section Date Range: From patient's date of to the date document was create d. This section includes a list of Problems (Conditions) know n to DC for the patient. It includes both active and inacti ve problems (conditions). The data comes from all [place] treatment facilities. Problem Status Problem Code Date of Onset Date of Resolution Comm ent(s) Provider Source Abnormality of Gait (ICD-9-CM 781.2) Active 781.2 GALILEA BENÍTEZ [facility] Achilles bursitis or tendinitis (ICD-9-CM 726.71) Active 726.71 RILEY GALVAN [facility] Acquired right hallux valgus Active [id number] RILEY GALVAN [facility] Ankle ulcer due to type 2 diabetes mellitus ([place] [address] 074293189) Active 95827763022445 [facility] Bereavement (SNOMED CT 54047552) Active V62.89 SIMON NEELY [facility] Bilateral plantar fasciitis (SNOMED CT [id number]) Ac tive [id number] RILEY [facility]VAN [facility] BIPOLAR AFFECTIVE NOS Active 296.7 DEMETRA UREÑA [facility] Bipolar disorder (SNOMED CT 64755583) Active 12928272 [facility]IMBERLY BANG [facility] Bunion Active 727.1 MONICA MADDOX [facility] Carpal Tunnel Syndrome * (ICD-9-CM 354.0) Active 354.0 Oct 16, 2002 Entered By: GALILEA BENÍTEZ Comment: rt GALILEA BENÍTEZ [facility] Cerebral Palsy NEC (ICD-9-CM 343.8) Active 343.8 SEPIDEH NELSON [facility] Depression * (ICD-9-CM 311./300.4) Active 311. [facility] NEELY [facility] Derangement of meniscus Active 717.5 J an 2001 Entered By: DEMETRA UREÑA Comment: left knee, arthroscopy 11/23 DEMETRA UREÑA [facility] Diabetes mellitus (SNOMED CT 05308968) Active 54161182 [facility]ELY [facility] Difficulty balancing Active 442172766 [facility] Elevated Liver Function Tests (ICD-9-CM 794.8) Active 794.8 [facility]ELY [facility] Enthesopathy of ankle and tarsus (ICD-9-CM 726.70/726.79) Active 72 6.70 BECCA JONES [facility] Flat foot Active 734. MONICA MADDOX [facility] GERD * (ICD-9-CM 530.81) Active 530.81 SIMON NEELY [facility] Hip Pain (ICD-9-CM 719.45) Active 719.45 SIMON YA Ina [facility] Hyperkeratosis Active 701.1 MONICA MADDOX ROBE RT Cid [facility] Hyperlipidemia * (ICD-9-CM 272.4) Active 272.4 [facility] Hypertension * (ICD-9-CM 401.9) Active 401.9 GALILEA BENÍTEZ [facility] Hypertension * (ICD-9-CM 401.9) Active 401.9 [facility] Insomnia * (ICD-9-CM 780.52) Active 780.52 SIMON THOMAS [facility] Joint Pain Forearm Active 719.43 [facility]IDAS [facility] Lower Leg Injury NOS Active 959.7 SHARRI GUZMAN [facility] Morbid Obesity * (ICD-9-CM 278.01) Active 278.01 DARION YOUNG [facility] Obesity * (ICD-9-CM 278.00) Active 278.00 GALILEA WEST [facility] Onychomycosis (SNOMED CT 870782183) Active 110.1 SIMON NEELY [facility] Osteoarthosis Shoulder Active 715.91 VERNELL GUZMAN [facility] Pain in joint involving shoulder region (ICD-9-CM 719.41) Active 71 9.41 SIMON NEELY [facility]ION iCd [facility] Routine Gynecological examination Active V72.31 SIMON NEELY [facility] Sciatica * (ICD-9-CM 724.3) Active 724.3 SIMON CAMP [facility]ION Cid [facility] Unspecified chest pain * (ICD-9-CM 786.50) Active 786.50 MARK VIVAS [facility] Unsteady when walking Active 43825148 HARRISON NEELY [facility] Urinary Incontinence * (ICD-9-CM 788.30) Active 788.30 JJ GAYTAN [facility] MUSCLE SPASM Inactive 728.85 May 29, 2007 Sep 02 Entered By: TONY BENÍTEZ Comment: shoulders TONY BENÍTEZ [facility] Radiology Reports: +/- 30 days of the encounter No Data Provided for This Section Pathology Reports: +/- 30 days of the encounter No Data Provided for This Section Encounter Notes: All associated encounter notes This section contains the clinical notes associated to the Encounter. Date/Time Encounter Note(s) Provider Source Oct 11, 2019 01:23 PM MENTAL HEALTH TELEPHONE ENCO UNTER NOTE: LOCAL TITLE: [facility] TITLE: MENTAL HEALTH TELEPHONE ENCOUNTER NOTE DATE OF NOTE: OCT 11, 2019@13:23 ENTRY DATE: OCT 11, 2019@13:23:23 AUTHOR: AMANDA DAUGHERTY COSIGNER: URGENCY: STATUS: COMPLETED Contacted to inform her that her MH provider has refilled her lithium. Advised that her MH Provider refilled her lithium at her prescribed dose- 300mg in the am and 900mg in the pm. Informed that pharmacy was alerted that medication needs to be expedited. verbalized understanding. Following phone call Clanton was transferred to pharmacy pt line to ensure medication is being mailed out. Reminded if needed to be seen urgently prior to next appt - present to [facility] walk-in clinic M-F, [phone]. This can be accessed at [facility] or thru a local CBOC. Reviewed emergency resources including [facility] 17/04 phone number [phone] [facility], contac ting 911 or presenting to nearest ED for emergency. verbalized understanding of all information discussed and denied further MH needs, questions or concerns. Clanton was calm, pleasent and cooperative during phone call. /susie/ AMANDA DAUGHERTY RN BSN Signed: 10/11/2019 13:35 [facility]ERTY [facility]
--- OUTSIDE RECORDS SUMMARY | 2020-03-28 08:22 | XMS REPORT | Encounter Summary ---
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 Name Role Phone FLORINDA SIMON PCP Unavailable [...] PART A Aug 25, 2011 PART A [id number] GADBERRY,CHARLANNE PATIENT MEDICARE (WNR) MEDICARE (M) PART B Aug 25, 2011 PART B [id number] GADBERRY,CHARLANNE PATIENT MEDICARE (WNR) MEDICARE (M) PART A Aug 25, 2011 PART A [id number] GADBERRY,CHARLANNE PATIENT MEDICARE (WNR) MEDICARE (M) PART B Aug 25, 2011 PART B [id number] GADBERRY,CHARLANNE PATIENT MEDICARE (WNR) MEDICARE (M) PART A Aug 25, 2011 PART A [id number] SANDRA MORELOS PATIENT MEDICARE (WNR) MEDICARE (M) PART B Aug 25, 2011 PART B [id number] SANDRA MORELOS PATIENT MEDICARE PART D (WNR) MEDICARE (M) PART D Sep 25, 2012 PART D [id number] SANDRA WHITMAN PATIENT Selected Encounter This section includes the information on record at [place] for the Encounter. Date/Time Encounter Type Encounter Description Reason Provider Source Oct 09, 2019 09:30 AM Outpatient Encounter ADMIN PAT ACTIVTIES (LALI WATT) [facility] IH Encounter Template Text not used by [place] [...] 06, 2019 02:00 PM AMBULATORY - PSYCHIATRY [facility] Nov 06, 2019 02:01 PM AMBULATORY - PSYCHIATRY [facility] Nov 27, 2019 11:00 AM AMBULATORY - MEDICINE [facility] Jan 15, 2020 10:30 AM AMBULATORY MEDICINE [facility] Jan 16, 2020 10:00 AM AMBULATORY PSYCHIATRY [place] Jose Roberto [facility] Jan 23, 2020 02:00 PM AMBULATORY - MEDICINE [facility] February 12, 2020 02:00 PM AMBULATORY PSYCHIATRY [place] Jose Roberto [facility] Mar 24, 2020 08:30 AM AMBULATORY PSYCHIATRY [facility] Surgical Procedures: All associated to the encounter No Data Provided for This Section Lab Results: +/- 30 days of the encounter This section includes the Chemistry and Hematology Lab R esults on record with [place] for the patient. Radiology Reports and Pathology Report s are provided separately, in subsequent sections. Lab Results This section contains the Chemistry/Hematology Results douglas t were resulted 30 days before or 30 days after the date of the Encounter. Date/Time Source Result Type Result - Unit Interpretation Reference Range Comment Oct 09, 2019 09:41 AM [facility] HEMOGLOBIN A1C Specimen Type: BLOOD No comment [...] Nov 21, 2018 11:32 AM CURRENT NON-SMOKER [facility] Tobacco Use History This section includes a history of the smoking, or tobacco -related health factors, that were collected on or before the date of the Encoun ter. The data comes from the [place] facility where the Encounter took place. Date/Time Smoking Status/Tobacco Use Comment [facility] it Nov 21, 2018 11:32 AM LIFETIME NON-TOBACCO USER [facility] Feb 27, 2017 09:38 AM CURRENT NON-SMOKER [facility] Feb 27, 2017 09:38 AM LIFETIME NON-TOBACCO USER [facility] Sep 08, 2015 09:10 AM CURRENT NON-SMOKER [facility] Sep 08, 2015 09:10 AM LIFETIME NON-TOBACCO USER [facility] Jan 12, 2015 09:39 AM CURRENT NON-SMOKER [facility] Jan 12, 2015 09:39 AM LIFETIME NON-TOBACCO USER [facility] Jan 10, 2014 01:20 PM CURRENT NON-SMOKER [facility] Jan 10, 2014 01:20 PM LIFETIME NON-TOBACCO USER [facility] Oct 30, 2012 08:31 AM CURRENT NON-SMOKER [facility] Oct 30, 2012 08:31 AM LIFETIME NON-TOBACCO USER [facility] Jun 01, 2011 11:19 AM CURRENT NON-SMOKER [facility] Jun 01, 2011 11:19 AM LIFETIME NON-TOBACCO USER [facility] Mar 21, 2011 01:50 PM CURRENT NON-SMOKER [facility] Mar 21, 2011 01:50 PM LIFETIME NON-TOBACCO USER [facility] Mar 21, 2011 01:50 PM NON-TOBACCO USER [facility] Aug 03, 2010 01:21 PM CURRENT NON-SMOKER [facility] Aug 03, 2010 01:21 PM LIFETIME NON-TOBACCO USER [facility] Jan 14, 2010 09:03 AM CURRENT NON-SMOKER [facility] Jan 14, 2010 09:03 AM LIFETIME NON-TOBACCO USER [facility] Mar 23, 2009 09:25 AM CURRENT NON-SMOKER [facility] Mar 23, 2009 09:25 AM LIFETIME NON-TOBACCO USER [facility] Oct 23, 2008 09:10 AM CURRENT NON-SMOKER [facility] Oct 23, 2008 09:10 AM LIFETIME NON-TOBACCO USER [facility] Sep 27, 2007 10:27 AM CURRENT NON-SMOKER [facility] Sep 27, 2007 10:27 AM LIFETIME NON-TOBACCO USER [facility] Advance Directives: All historical and [...] 15, 2009 ADVANCE DIRECTIVE DISCUSSION JADE VARMA [facility] Jul 21, 2006 ADVANCE DIRECTIVE [facility] Jul 12, 2006 ADVANCE DIRECTIVE DISCUSSION [facility] Allergies and Adverse Reactions (ADRs): All [...] to adverse reactions to drug (diso rder) [facility] ENALAPRIL May 04, 2007 Propensity to adverse reactions to drug ( disorder) Cough [facility] LEVAQUIN Aug 22, 2017 Propensity to adverse reactions to drug (diso rder) [facility] LEVAQUIN Oct 08, 2015 Propensity to adverse reactions to drug (disorder) Eruption [facility] 15 LISINOPRIL Aug 22, 2017 Propensity to adverse reactions to drug (diso rder) [facility] LISINOPRIL Jan 16, 2007 Propensity to adverse reactions to drug (disorder) Cough [facility] NIACIN Aug 22, 2017 Propensity to adverse reactions to drug (diso rder) [facility] NIACIN Oct 23, 2008 Propensity to adverse reactions to drug ( disorder) Eruption [facility] 15 Medications: VA dispensed (-15 months) and Non-VA Documented (Obtained Outside A) Section Date Range: 1) prescriptions processed by a VA pharmacy in the last 15 m [facility], and 2) all medications recorded in [...] BLOOD GLUCOSE TESTING 50 Jun 06, 2020 [id number] February 21, 2020 SIMON NEELY AMLODIPINE BESYLATE 10MG TAB Active TAKE ONE TABLET BY MOUTH EVERY MORNING 90 January 23, 2021 [id number] Jan 23, 2020 SIMON NEELY AMLODIPINE BESYLATE 10MG TAB Discontinued TAKE ONE TA BLET BY MOUTH EVERY MORNING 90 Nov 27, 2019 [id number] Oct 21, 2019 SIMON NEELY ATORVASTATIN CA 20MG TAB Active TAKE ONE-HALF T ABLET BY MOUTH AT BEDTIME FOR CHOLESTEROL - REPORT ANY UNEXPLAINED MUSCLE PAIN/WEAKNESS TO YOUR PROVIDER TAKE IN PLACE OF CRESTOR, VA DOESNT SUPPLY CRESTOR, FOR CHOLESTEROL - REPORT ANY UNEXPLAINED MUSCLE PAIN/WEAKNESS TO YOUR PROVIDER TAKE IN PLACE OF CRESTOR, [facility] DOESNT SUPPLY CRESTOR, 45 January 23, 2021 [id number] Jan 23, 2020 HARRISON NEELY ATORVASTATIN CA 20MG TAB Discontinued TAKE ONE-HALF T ABLET BY MOUTH AT BEDTIME FOR CHOLESTEROL - REPORT ANY UNEXPLAINED MUSCLE PAIN/WEAKNESS TO YOUR PROVIDER TAKE IN PLACE OF CRESTOR, [facility] DOESNT SUPPLY CRESTOR, FOR CHOLESTEROL - REPORT ANY UNEXPLAINED MUSCLE PAIN/WEAKNESS TO YOUR PROVIDER TAKE IN PLACE OF CRESTOR, [facility] DOESNT SUPPLY CRESTOR, 45 Dec 07, 2019 [id number] Mar 01, 2019 HARRISON NEELY BRIEF,SUPER PLUS ABSORB WITH BARRIERS UNDERWEAR X-LARGE ATTE NDS Active USE DIRECTED DIRECTED FOR INCONTINENCE 56 Nov 04, 2020 [id number] Nov 09, 2019 SIMON NEELY BRIEF,SUPER PLUS ABSORB WITH BARRIERS UNDERWEAR X-LARGE ATTE NDS Discontinued USE DIRECTED DIRECTED FOR INCONTINENCE 56 Apr 01, 2020 [id number] Aug 06, 2019 SIMON NEELY GLIPIZIDE 5MG TAB Active TAKE ONE TABLET BY M OUTH EVERY DAY BEFORE BREAKFAST FOR DIABETES. TAKE 30 MINUTES BEFORE EATING. 90 Apr 22, 2020 [id number] February 12, 2020 SIMON NEELY GLIPIZIDE 5MG TAB Discontinued TAKE ONE TABLET BY M OUTH EVERY DAY BEFORE BREAKFAST FOR DIABETES. TAKE 30 MINUTES BEFORE EATING. 90 Feb 242019 [id number] February 12, 2020 SIMON NEELY GLIPIZIDE 5MG TAB Discontinued TAKE ONE TABLET BY M OUTH EVERY DAY BEFORE BREAKFAST FOR DIABETES. TAKE 30 MINUTES BEFORE EATING. 90 January [id number] Nov 24, 2019 SIMON NEELY GLIPIZIDE 5MG TAB Discontinued TAKE ONE TABLET BY M OUTH EVERY DAY BEFORE BREAKFAST FOR DIABETES. TAKE 30 MINUTES BEFORE EATING. 90 Nov [id number] Sep 05, 2019 SIMON NEELY LANCET,SOFTCLIX Active USE LANCET BIW FOR TESTING BL OOD GLUCOSE DIRECTED 100 Jun 06, 2020 [id number] Jun 07, 2019 SIMON NEELY C LITHIUM CARBONATE 300MG CAP Active TAKE 1 CAPSU LE BY MOUTH EVERY MORNING AND TAKE 3 CAPSULES BY MOUTH AT BEDTIME FOR MOOD. MUST MAKE AN APPT OR WILL TAPER AND DISCONTINUE MEDICATIONS 120 February 12, 2021 [id number] Mar 04, 2020 ELOISE HUYNH [facility] LITHIUM CARBONATE 300MG CAP Discontinued TAKE 1 CAPSU LE BY MOUTH EVERY MORNING AND TAKE 3 CAPSULES BY MOUTH AT BEDTIME FOR MOOD. MUST MAKE AN APPT OR WILL TAPER AND DISCONTINUE MEDICATIONS 120 Aug 06, 2020 [id number] Dec 16, 2019 KANG ZAYAS [facility] LITHIUM CARBONATE 300MG CAP Discontinued TAKE 1 CAPSU LE BY MOUTH EVERY MORNING AND TAKE 3 CAPSULES BY MOUTH AT BEDTIME FOR MOOD. MUST MAKE AN APPT OR WILL TAPER AND DISCONTINUE MEDICATIONS 120 Jun 10, 2020 [id number] Jul 19, 2019 KIMBERLY TARIQ [facility] LITHIUM CARBONATE 300MG CAP Discontinued TAKE 1 CAPSU LE BY MOUTH EVERY MORNING AND TAKE 3 CAPSULES BY MOUTH AT BEDTIME FOR MOOD. MUST MAKE AN APPT OR WILL TAPER AND DISCONTINUE MEDICATIONS 120 Jul 03, 2019 [id number] Jun 03, 2019 KIMBERLY TARIQ [facility] LITHIUM CARBONATE 300MG CAP Discontinued TAKE 1 CAPSU LE BY MOUTH EVERY MORNING AND TAKE 3 CAPSULES BY MOUTH AT BEDTIME FOR MOOD. MUST MAKE AN APPT OR WILL TAPER AND DISCONTINUE MEDICATIONS 120 Mar 23, 2019 [id number] February 21, 2019 [facility] LITHIUM CARBONATE 300MG CAP Discontinued TAKE 1 CAPSU LE BY MOUTH EVERY MORNING AND TAKE 3 CAPSULES BY MOUTH AT BEDTIME FOR MOOD. 120 Dec 18, 2019 [id number] Jan 11, 2019 [facility] LITHIUM CARBONATE 300MG [...] SPLIT, OR CHEW. 234 May 31, 2019 [id number] Apr 01, 2019 KIMBERLY BANG [facility] NO KNOWN NON-VA MEDS MISCELLANEOUS Non-VA Non-VA Documented by: MICHELLE BARTHOLOMEW Docume nted at: [facility] NO KNOWN NON-VA MEDS MISCELLANEOUS Non-VA Non-VA Documented by: GALILEA BENÍTEZ Docume nted at: [facility] OXYCODONE HCL 5MG TAB No n-VA TAKE ONE TABLET BY MOUTH EVERY 6 HOURS NEEDED Non-VA Docume nted by: SIMON NEELY Docume nted at: [facility] QUETIAPINE FUMARATE 100MG TAB Active TAKE ONE-HALF TABL ET BY MOUTH AT BEDTIME 15 Mar 25, 2021 [id number] Mar 24, 2020 ELOISE HUYNH [facility] TRAMADOL HCL 50MG TAB No n-VA TAKE ONE TABLET BY MOUTH EVERY 6 HOURS NEEDED Non-VA Docume nted by: SIMON NEELY Docume nted at: [facility] TRAZODONE HCL 100MG TAB Discontinued TAKE FOUR TABLET S BY MOUTH AT BEDTIME FOR MOOD OR SLEEP. 120 February 12, 2021 [id number] Mar 01, 2020 ELOISE HUYNH [facility] TRAZODONE HCL 100MG TAB Discontinued TAKE FOUR TABLET S BY MOUTH AT BEDTIME FOR MOOD OR SLEEP. 120 Aug 06, 2020 [id number] February 10, 2020 [facility] TRAZODONE HCL 100MG TAB Discontinued TAKE FOUR TABLET S BY MOUTH AT BEDTIME FOR MOOD OR SLEEP. 120 Jun 03, 2020 [id number] Jul 29, 2019 KIMBERLY BANG [facility] TRAZODONE HCL 100MG TAB Discontinued TAKE FOUR TABLET S BY MOUTH AT BEDTIME FOR MOOD OR SLEEP. 120 February 05, 2020 [id number] May 06, 2019 KIMBERLY BANG [facility] TRAZODONE HCL 100MG TAB Discontinued TAKE FOUR TABLET S BY MOUTH AT BEDTIME FOR MOOD OR SLEEP. 120 Sep 14, 2019 [id number] Jan 07, 2019 KIMBERLY BANG [facility] TROSPIUM CL 20MG TAB Active TAKE ONE TABLET BY MOUTH TWO TIMES A DAY FOR BLADDER. TAKE ON AN EMPTY STOMACH OR AT LEAST ONE HOUR BEFORE FOOD. PER DR. BUTLER 180 January 23, 2021 [id number] Mar 16, 2020 SIMON NEELY [facility] TROSPIUM CL 20MG TAB Discontinued TAKE ONE TABLET BY MOUTH TWO TIMES A DAY FOR BLADDER. TAKE ON AN EMPTY STOMACH OR AT LEAST ONE HOUR BEFORE FOOD. PER DR. BUTLER 180 Apr 01, 2020 [id number] Dec 17, 2019 SIMON NEELY [facility] VENLAFAXINE HCL 75MG 24HR CAP,SA Active TAKE 3 CAPSULES BY MOUTH ONCE A DAY FOR MOOD. TAKE WITH FOOD. 90 February 12, 2021 [id number] Mar 04, 2020 Arlette HUYNH [facility] VENLAFAXINE HCL 75MG 24HR CAP,SA Discontinued TAKE 3 CAPSULES BY MOUTH ONCE A DAY FOR MOOD. TAKE WITH FOOD. 90 Aug 06, 2020 [id number] Jan 05 0 KANG ZAYAS [facility] VENLAFAXINE HCL 75MG 24HR CAP,SA Discontinued TAKE 3 CAPSULES BY MOUTH ONCE A DAY FOR MOOD. TAKE WITH FOOD. 90 Aug 28, 2019 [id number] Aug 01 9 KIMBERLY TARIQ [facility] VENLAFAXINE HCL 75MG 24HR CAP, Discontinued TAKE 3 CAPSULES BY MOUTH ONCE A DAY FOR MOOD. TAKE WITH FOOD. 90 February 05, 2020 [id number] Jul 01 9 KIMBERLY TARIQ [facility] Problems (Conditions): All [...] Gait (ICD-9-CM 781.2) Active 781.2 [facility] Achilles bursitis or tendinitis (ICD-9-CM 726.71) Active 726.71 RILEY GALVAN [facility] Acquired right hallux valgus Active [id number] RILEY GALVAN [facility] Ankle ulcer due to type 2 diabetes mellitus ([place] [address] [id number]) Active [id number] SIMON NEELY [facility] Bereavement (SNOMED CT 31392734) Active V62.89 SIMON NEELY [facility] Bilateral plantar fasciitis (SNOMED CT [id number]) Ac tive [id number] RILEY [facility] BIPOLAR AFFECTIVE NOS Active 296.7 [facility] Bipolar disorder (SNOMED CT 72170476) Active 44901333 [facility]ANG [facility] Bunion Active 727.1 MONICA MADDOX [facility] Carpal Tunnel Syndrome * (ICD-9-CM 354.0) Active 354.0 Oct 16, 2002 Entered By: GALILEA BENÍTEZ Comment: rt [facility] Cerebral Palsy NEC (ICD-9-CM 343.8) Active 343.8 SEPIDEH NELSON [facility] Depression * (ICD-9-CM 311./300.4) Active 311. SIMON NEELY [facility] Derangement of meniscus Active 717.5 J an 2001 Entered By: DEMETRA UREÑA Comment: left knee, arthroscopy 11/23 [facility] Diabetes mellitus (SNOMED CT 69282337) Active 29024553 SIMON NEELY [facility] Difficulty balancing Active [id number] [facility] Elevated Liver Function Tests (ICD-9-CM 794.8) Active 794.8 SIMON NEELY [facility] Enthesopathy of ankle and tarsus (ICD-9-CM 726.70/726.79) Active 72 6.70 BECCA JONES [facility] Flat foot Active 734. MONICA MADDOX [facility] GERD * (ICD-9-CM 530.81) Active 530.81 SIMON NEELY [facility] Hip Pain (ICD-9-CM 719.45) Active 719.45 [facility] Hyperkeratosis Active 701.1 VARSHAMINHKaylah HERNANDEZ [facility] Hyperlipidemia * (ICD-9-CM 272.4) Active 272.4 [facility] Hypertension * (ICD-9-CM 401.9) Active 401.9 [facility] Hypertension * (ICD-9-CM 401.9) Active 401.9 [facility] Insomnia * (ICD-9-CM 780.52) Active 780.52 SIMON THOMAS [facility] Joint Pain Forearm Active 719.43 LEONIDAS GUZMAN [facility] Lower Leg Injury NOS Active 959.7 [facility] Morbid Obesity * (ICD-9-CM 278.01) Active 278.01 DARION YOUNG [facility] Obesity * (ICD-9-CM 278.00) Active 278.00 [facility]A [facility] Onychomycosis (SNOMED CT 164289927) Active 110.1 SIMON NEELY [facility] Osteoarthosis Shoulder Active 715.91 VERNELL GUZMAN [facility] Pain in joint involving shoulder region (ICD-9-CM 719.41) Active 71 9.41 SIMON NEELY [facility] Routine Gynecological examination Active V72.31 [facility] Sciatica * (ICD-9-CM 724.3) Active 724.3 SIMON CAMP [facility] Unspecified chest pain * (ICD-9-CM 786.50) Active 786.50 [facility] Unsteady when walking Active [id number] [facility]ELY [facility] Urinary Incontinence * (ICD-9-CM 788.30) Active 788.30 JJ GAYTAN [facility] MUSCLE SPASM Inactive 728.85 May 29, 2007 Sep 02 Entered By: TONY BENÍTEZ Comment: shoulders TONY BENÍTEZ [facility] Radiology Reports: +/- 30 days of the encounter No Data Provided for This Section Pathology Reports: +/- 30 days of the encounter No Data Provided for This Section Encounter Notes: All associated encounter notes This section contains the clinical notes associated to the Encounter. Date/Time Encounter Note(s) Provider Source Oct 10, 2019 10:49 AM DIAGNOSTIC STUDY REPORT: LOCAL TITLE: WI-FORM LETTER DIAGNOSTIC RESULTS STANDARD TITLE: DIAGNOSTIC STUDY REPORT DATE OF NOTE: OCT 10, 2019@10:49 ENTRY DATE: OCT 10, 2019@10:49:32 AUTHOR: SIMI MENCHACA EXP COSIGNER: URGENCY: STATUS: COMPLETED Department of [facility] Darion Hernandez [address] [place] [address] SANDRA MORELOS [address], [place], [address] Sep Dear SANDRA MORELOS, The purpose of this letter is to inform you of your test results done recently at the [facility],[place], [place]. LABORATORY Comments:Your a1c is good at 6.3. Continue current diabetic regimen and we will recheck at your next annual. Long [facility] SIMI MENCHACA CB
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
--- OUTSIDE RECORDS SUMMARY | 2020-03-28 08:22 | XMS REPORT | Encounter Summary ---
Author Author [facility] Organization [facility] Affai Address [address] [place] [address] Phone Unavailable Care Team Providers Care Quarter Supervisor Name Role Phone FLORINDASIMON PCP Unavailable Insurance [...] PART A Aug 25, 2011 PART A [id number] GADBERRY,CHARLANNE PATIENT MEDICARE (WNR) MEDICARE (M) PART B Aug 25, 2011 PART B [id number] GADBERRY,CHARLANNE PATIENT MEDICARE (WNR) MEDICARE (M) PART A Aug 25, 2011 PART A [id number] GADBERRY,CHARLANNE PATIENT MEDICARE (WNR) MEDICARE (M) PART B Aug 25, 2011 PART B [id number] GADBERRY,CHARLANNE PATIENT MEDICARE (WNR) MEDICARE (M) PART A Aug 25, 2011 PART A [id number] SANDRA MORELOS PATIENT MEDICARE (WNR) MEDICARE (M) PART B Aug 25, 2011 PART B [id number] SANDRA MORELOS PATIENT MEDICARE PART D (WNR) MEDICARE (M) PART D Sep 25, 2012 PART D [id number] SANDRA WHITMAN PATIENT Selected Encounter This section includes the information on record at [place] for the Encounter. Date/Time Encounter Type Encounter Description Reason Provider Source Jun 25, 2019 12:00 AM Outpatient Encounter EVENT (HISTORICAL) [facility] IHE Encounter Template Text not used by MS Assessments - Encounter Diagnoses No Data Provided for This Section Plan of Treatment: Future Appointments (+ 6 months) and Future Tests (+/- 45 day s) The Plan of Treatment section includes future care activities for the patient fr om all [place] treatment facilities. This section includes future appointments and fu ture orders which are active, pending or scheduled. Future Appointments This section includes appointments that were scheduled t o occur 6 months from the date of the Encounter, up to a maximum of 20 appointme nts. The data comes from all [place] treatment facilities. Appointment Date/Time Appointment Type Appointment Facili ty Name Aug 06, 2019 02:00 PM AMBULATORY - PSYCHIATRY DARION MARTINEZ [facility] Aug 06, 2019 02:01 PM AMBULATORY - PSYCHIATRY GALINDO [facility] Oct 09, 2019 09:30 AM AMBULATORY - NONE GALINDO [facility] Nov 06, 2019 02:00 PM AMBULATORY - PSYCHIATRY DARION MARTINEZ [facility] Nov 06, 2019 02:01 PM AMBULATORY - PSYCHIATRY GALINDO [facility] Nov 27, 2019 11:00 AM AMBULATORY - MEDICINE [facility] Surgical Procedures: All associated to the encounter No Data Provided for This Section Lab Results: +/- 30 days of the encounter This section includes the Chemistry and Hematology Lab R esults on record with MS for the patient. Radiology Reports and Pathology Report s are provided separately, in subsequent sections. Lab Results This section contains the Chemistry/Hematology Results douglas t were resulted 30 days before or 30 days after the date of the Encounter. Date/Time Source Result Type Result - Unit Interpretation Reference Range Comment May 30, 2019 11:20 AM DARION MARTINEZ [facility] COMPREHENSIVE METABOLI C PANEL Specimen Type: PLASMA Comment: For eGFR: eGFR results >60 are imprecise. Many variables affect the calculated result. Interpretation of eGFR results >60 must be monitored over time. *CREATININE 0.91 mg/dL 0.6-1.1 UREA NITROGEN mg/dL 11 mg/dL 9-25 GLUCOSE 169 mg/dL H 72-99 SODIUM 140 mEq/L 136-145 POTASSIUM 4.1 mEq/L 3.5-5.0 CALCIUM (mg/dL) 9.4 mg/dL 8.4-10.4 PROTEIN,TOTAL 7.2 g/dL 6.0-8.6 ALBUMIN 4.3 g/dl 3.4-5.0 TOTAL BILIRUBIN 0.3 mg/dL 0.2-1.2 ASPARTATE TRANSAMINASE 21 U/L 5-34 ALANINE AMINOTRANSFERASE 41 U/L H 8-40 ANION GAP 7.4 L 8-16 CHLORIDE 109 mEq/L H 98-107 CO2 23.6 mEq/L 22-31 ALKALINE PHOSPHATASE 76 U/L 40-150 EGFR >60 May 30, 2019 11:20 AM DARION MARTINEZ [facility] LITHIUM Specimen Type: SERUM Comment: ~For Test: LITHIUM ~Dose is expected to be at &TROUGH level. LITHIUM 0.7 mmol/L 0.6-1.2 May 30, 2019 11:20 AM JOSIE [facility] HEMOGLOBIN A1C Specimen Type: BLOOD No comment entered. HEMOGLOBIN A1C 8.1 % H 4.0-6.0 Vital Signs: All taken on the encounter date No Data Provided for This Section Immunizations: All administered on the encounter date This section contains immunizations associated to the Encounter. Immunization Series Date Issued Reaction Comments INFLUENZA, UNSPECIFIED FORMULATION Jun 25, 2019 Social History: Smoking Status (Most current) and Tobacco Use (All prior to enco unter date) No Data Provided for This Section Advance Directives: All historical and current Section Date Range: From patient's date of to the date document was create d. This section includes ALL of a patient's completed or amen ded [place] Advance and Rescinded Directives. The entries below indicate that a direc tive exists for the patient, but an actual copy is not included with this docume nt. The data comes from all [place] facilities. Date Advance Directives Provider Source Sep 15, 2009 ADVANCE DIRECTIVE DISCUSSION JADE VARMA [facility] Jul 21, 2006 ADVANCE DIRECTIVE [facility] Jul 12, 2006 ADVANCE DIRECTIVE DISCUSSION SAV PAULSON [facility] Allergies and Adverse Reactions (ADRs): All historical and current Section Date Range: From patient's date of to the date document was create d. This section includes Allergies and Adverse Reactions (ADR s) on record with [facility] for the patient. The data comes from a [facility] treatment facilities. It does not list Allergies/ADRs that were removed or entered in error. Some allergies/ADRs may be reported in t he Immunization section. Allergen Event Date Event Type Reaction(s) Severity Source ENAL[facility] Aug 22, 2017 Propensity to adverse reactions to drug (diso rder) [facility] May 04, 2007 Propensity to adverse reactions to drug ( disorder) Cough [facility] [place] Aug 22, 2017 Propensity to adverse reactions to drug (diso rder) [facility] [place] Oct 08, 2015 Propensity to adverse reactions to drug (disorder) Eruption [facility] [place] Aug 22, 2017 Propensity to adverse reactions to drug (diso rder) [facility] Jan 16, 2007 Propensity to adverse reactions to drug (disorder) Cough [facility] [place]AC[place] Aug 22, 2017 Propensity to adverse reactions to drug (diso rder) [facility] [place] Oct 23, 2008 Propensity to adverse reactions to drug ( disorder) Eruption [facility] Medications: VA dispensed (-15 months) and Non-VA Documented (Obtained Outside V A) Section Date Range: 1) prescriptions processed by a VA pharmacy in the last 15 m [facility], and 2) all medications recorded in the [place] medical record as "non-VA medic ations". Pharmacy terms refer to [place] pharmacy's work on prescriptions. VA patient s are advised to take their medications as instructed by their health care team. The data comes from all [place] treatment facilities. Glossary of Pharmacy Terms:Active = A prescription that can be filled at the local [place] pharmacy.Active: On Hold = An active prescription that will not be filled until pharmacy resolves the issue.Active: Susp = An active prescription that is not scheduled to be filled yet.Clinic Order = A medication received during a visit to a [place] clinic or emergency department (currently not available).Discontinued [...] BLOOD GLUCOSE TESTING 50 Jun 06, 2020 [id number] February 21, 2020 SIMON NEELY AMLODIPINE BESYLATE 10MG TAB Active TAKE ONE TABLET BY MOUTH EVERY MORNING 90 January 23, 2021 [id number] Jan 23, 2020 SIMON NEELY AMLODIPINE BESYLATE 10MG TAB Discontinued TAKE ONE TA BLET BY MOUTH EVERY MORNING 90 Nov 27, 2019 [id number] Oct 21, 2019 SIMON NEELY ATORVASTATIN CA 20MG TAB Active TAKE ONE-HALF T ABLET BY MOUTH AT BEDTIME FOR CHOLESTEROL - REPORT ANY UNEXPLAINED MUSCLE PAIN/WEAKNESS TO YOUR PROVIDER TAKE IN PLACE OF CRESTOR, VA DOESNT SUPPLY CRESTOR, FOR CHOLESTEROL - REPORT ANY UNEXPLAINED MUSCLE PAIN/WEAKNESS TO YOUR PROVIDER TAKE IN PLACE OF CRESTOR, VA DOESNT SUPPLY CRESTOR, 45 January 23, 2021 [id number] Jan 23, 2020 HARRISON NEELY ATORVASTATIN CA 20MG TAB Discontinued TAKE ONE-HALF T ABLET BY MOUTH AT BEDTIME FOR CHOLESTEROL - REPORT ANY UNEXPLAINED MUSCLE PAIN/WEAKNESS TO YOUR PROVIDER TAKE IN PLACE OF CRESTOR, VA DOESNT SUPPLY CRESTOR, FOR CHOLESTEROL - REPORT ANY UNEXPLAINED MUSCLE PAIN/WEAKNESS TO YOUR PROVIDER TAKE IN PLACE OF CRESTOR, VA DOESNT SUPPLY CRESTOR, 45 Dec 07, 2019 [id number] Mar 01, 2019 HARRISON NEELY BRIEF,SUPER PLUS ABSORB WITH BARRIERS UNDERWEAR X-LARGE ATTE NDS Active USE DIRECTED DIRECTED FOR INCONTINENCE 56 Nov 04, 2020 [id number] Nov 09, 2019 SIMON NEELY BRIEF,SUPER PLUS ABSORB WITH BARRIERS UNDERWEAR X-LARGE ATTE NDS Discontinued USE DIRECTED DIRECTED FOR INCONTINENCE 56 Apr 01, 2020 [id number] Aug 06, 2019 SIMON NEELY GLIPIZIDE 5MG TAB Active TAKE ONE TABLET BY M OUTH EVERY DAY BEFORE BREAKFAST FOR DIABETES. TAKE 30 MINUTES BEFORE EATING. 90 Apr 22, 2020 [id number] February 12, 2020 SIMON NEELY GLIPIZIDE 5MG TAB Discontinued TAKE ONE TABLET BY M OUTH EVERY DAY BEFORE BREAKFAST FOR DIABETES. TAKE 30 MINUTES BEFORE EATING. 90 Feb 242019 [id number] February 12, 2020 SIMON NEELY CBREYMUNDO GLIPIZIDE 5MG TAB Discontinued TAKE ONE TABLET BY M OUTH EVERY DAY BEFORE BREAKFAST FOR DIABETES. TAKE 30 MINUTES BEFORE EATING. 90 January [id number] Nov 24, 2019 SIMON NEELY GLIPIZIDE 5MG TAB Discontinued TAKE ONE TABLET BY M OUTH EVERY DAY BEFORE BREAKFAST FOR DIABETES. TAKE 30 MINUTES BEFORE EATING. 90 Nov [id number] Sep 05, 2019 SIMON ENELY LANCET,SOFTCLIX Active USE LANCET BIW FOR TESTING BL OOD GLUCOSE DIRECTED 100 Jun 06, 2020 [id number] Jun 07, 2019 SIMON NEELY C LITHIUM CARBONATE 300MG CAP Active TAKE 1 CAPSU LE BY MOUTH EVERY MORNING AND TAKE 3 CAPSULES BY MOUTH AT BEDTIME FOR MOOD. MUST MAKE AN APPT OR WILL TAPER AND DISCONTINUE MEDICATIONS 120 February 12, 2021 [id number] Mar 04, 2020 ELOISE HUYNH [facility] LITHIUM CARBONATE 300MG CAP Discontinued TAKE 1 CAPSU LE BY MOUTH EVERY MORNING AND TAKE 3 CAPSULES BY MOUTH AT BEDTIME FOR MOOD. MUST MAKE AN APPT OR WILL TAPER AND DISCONTINUE MEDICATIONS 120 Aug 06, 2020 [id number] Dec 16, 2019 KANG ZAYAS [facility] LITHIUM CARBONATE 300MG CAP Discontinued TAKE 1 CAPSU LE BY MOUTH EVERY MORNING AND TAKE 3 CAPSULES BY MOUTH AT BEDTIME FOR MOOD. MUST MAKE AN APPT OR WILL TAPER AND DISCONTINUE MEDICATIONS 120 Jun 10, 2020 [id number] Jul 19, 2019 KIMBERLY TARIQ [facility] LITHIUM CARBONATE 300MG CAP Discontinued TAKE 1 CAPSU LE BY MOUTH EVERY MORNING AND TAKE 3 CAPSULES BY MOUTH AT BEDTIME FOR MOOD. MUST MAKE AN APPT OR WILL TAPER AND DISCONTINUE MEDICATIONS 120 Jul 03, 2019 [id number] Jun 03, 2019 KIMBERLY TARIQ [facility] LITHIUM CARBONATE 300MG CAP Discontinued TAKE 1 CAPSU LE BY MOUTH EVERY MORNING AND TAKE 3 CAPSULES BY MOUTH AT BEDTIME FOR MOOD. MUST MAKE AN APPT OR WILL TAPER AND DISCONTINUE MEDICATIONS 120 Mar 23, 2019 [id number] February 21, 2019 [facility]LY TARIQ [facility] LITHIUM CARBONATE 300MG CAP Discontinued TAKE 1 CAPSU LE BY MOUTH EVERY MORNING AND TAKE 3 CAPSULES BY MOUTH AT BEDTIME FOR MOOD. 120 Dec 18, 2019 [id number] Jan 11, 2019 KIMBERLY BANG [facility] LITHIUM CARBONATE 300MG TAB,SA Discontinued TAKE [...] SPLIT, OR CHEW. 234 May 31, 2019 [id number] Apr 01, 2019 [facility] NO KNOWN NON-VA MEDS MISCELLANEOUS Non-VA Non-VA Documented by: MICHELLE BARTHOLOMEW Docume nted at: [facility] NO KNOWN NON-VA MEDS MISCELLANEOUS Non-VA Non-VA Documented by: GALILEA BENÍTEZ Docume nted at: [facility] OXYCODONE HCL 5MG TAB No n-VA TAKE ONE TABLET BY MOUTH EVERY 6 HOURS NEEDED Non-VA Docume nted by: SIMON NEELY Docume nted at: [facility] JUARE[facility] QUETIAPINE FUMARATE 100MG TAB Active TAKE ONE-HALF TABL ET BY MOUTH AT BEDTIME 15 Mar 25, 2021 [id number] Mar 24, 2020 ELOISE HUYNH [facility] TRAMADOL HCL 50MG TAB No n-VA TAKE ONE TABLET BY MOUTH EVERY 6 HOURS NEEDED Non-VA Docume nted by: SIMON NEELY Docume nted at: [facility] TRAZODONE HCL 100MG TAB Discontinued TAKE FOUR TABLET S BY MOUTH AT BEDTIME FOR MOOD OR SLEEP. 120 February 12, 2021 [id number] Mar 01, 2020 ELOISE HUYNH [facility] TRAZODONE HCL 100MG TAB Discontinued TAKE FOUR TABLET S BY MOUTH AT BEDTIME FOR MOOD OR SLEEP. 120 Aug 06, 2020 [id number] February 10, 2020 KANG ZAYAS [facility] TRAZODONE HCL 100MG TAB Discontinued TAKE FOUR TABLET S BY MOUTH AT BEDTIME FOR MOOD OR SLEEP. 120 Jun 03, 2020 [id number] Jul 29, 2019 KIMBERLY BANG [facility] TRAZODONE HCL 100MG TAB Discontinued TAKE FOUR TABLET S BY MOUTH AT BEDTIME FOR MOOD OR SLEEP. 120 February 05, 2020 [id number] May 06, 2019 KIMBERLY BANG [facility] TRAZODONE HCL 100MG TAB Discontinued TAKE FOUR TABLET S BY MOUTH AT BEDTIME FOR MOOD OR SLEEP. 120 Sep 14, 2019 [id number] Jan 07, 2019 KIMBERLY BANG [facility] TROSPIUM CL 20MG TAB Active TAKE ONE TABLET BY MOUTH TWO TIMES A DAY FOR BLADDER. TAKE ON AN EMPTY STOMACH OR AT LEAST ONE HOUR BEFORE FOOD. PER DR. BUTLER 180 January 23, 2021 [id number] Mar 16, 2020 SIMON NEELY [facility] TROSPIUM CL 20MG TAB Discontinued TAKE ONE TABLET BY MOUTH TWO TIMES A DAY FOR BLADDER. TAKE ON AN EMPTY STOMACH OR AT LEAST ONE HOUR BEFORE FOOD. PER DR. BUTLER 180 Apr 01, 2020 [id number] Dec 17, 2019 SIMON NEELY [facility] VENLAFAXINE HCL 75MG 24HR CAP,SA Active TAKE 3 CAPSULES BY MOUTH ONCE A DAY FOR MOOD. TAKE WITH FOOD. 90 February 12, 2021 [id number] Mar 04, 2020 Arlette HUYNH [facility] VENLAFAXINE HCL 75MG 24HR CAP,SA Discontinued TAKE 3 CAPSULES BY MOUTH ONCE A DAY FOR MOOD. TAKE WITH FOOD. 90 Aug 06, 2020 [id number] Jan 05 0 KANG ZAYAS [facility] VENLAFAXINE HCL 75MG 24HR CAP,SA Discontinued TAKE 3 CAPSULES BY MOUTH ONCE A DAY FOR MOOD. TAKE WITH FOOD. 90 Aug 28, 2019 [id number] Aug 01 9 KIMBERLY TARIQ [facility] VENLAFAXINE HCL 75MG 24HR CAP,SA Discontinued TAKE 3 CAPSULES BY MOUTH ONCE A DAY FOR MOOD. TAKE WITH FOOD. 90 February 05, 2020 [id number] Jul 01 9 KIMBERLY TARIQ [facility] Problems (Conditions): All historical and current Section Date Range: From patient's date of to the date document was create d. This section includes a list of Problems (Conditions) know n to [facility] for the patient. It includes both active and inacti ve problems (conditions). The data comes from all [place] treatment facilities. Problem Status Problem Code Date of Onset Date of Resolution Comm ent(s) Provider Source Abnormality of Gait (ICD-9-CM 781.2) Active 781.2 GALILEA BENÍTEZ [facility] Achilles bursitis or tendinitis (ICD-9-CM 726.71) Active 726.71 RILEY GALVAN [facility] Acquired right hallux valgus Active [id number] RILEY GALVAN [facility] Ankle ulcer due to type 2 diabetes mellitus ([place] [address] [id number]) Active 22993197508523 SIMON NEELY [facility] Bereavement (SNOMED [place] 36499845) Active V62.89 SIMON NEELY [facility] Bilateral plantar fasciitis (SNOMED CT [id number]) Ac tive [id number] RILEY GALVAN [facility] BIPOLAR AFFECTIVE NOS Active 296.7 DEMETRA UREÑA [facility] Bipolar disorder (SNOMED CT 42509963) Active 42093965 KIMBERLY BANG [facility] Bunion Active 727.1 MONICA MADDOX [facility] Carpal Tunnel Syndrome * (ICD-9-CM 354.0) Active 354.0 Oct 16, 2002 Entered By: GALILEA BENÍTEZ Comment: rt GALILEA BENÍTEZ [facility] Cerebral Palsy NEC (ICD-9-CM 343.8) Active 343.8 ESPIDEH NLESON [facility] Depression * (ICD-9-CM 311./300.4) Active 311. SIMON NEELY [facility] Derangement of meniscus Active 717.5 J an 2001 Entered By: DEMETRA UREÑA Comment: left knee, arthroscopy 11/23 DEMETRA UREÑA [facility] Diabetes mellitus (SNOMED CT 25203551) Active [id number] SIMON NEELY [facility] Difficulty balancing Active [id number] [facility] Elevated Liver Function Tests (ICD-9-CM 794.8) Active 794.8 [facility] Enthesopathy of ankle and tarsus (ICD-9-CM 726.70/726.79) Active 72 6.70 BECCA JONES [facility] Flat foot Active 734. [facility] GERD * (ICD-9-CM 530.81) Active 530.81 SIMON NEELY [facility] Hip Pain (ICD-9-CM 719.45) Active 719.45 SIMON AY [facility] Hyperkeratosis Active 701.1 MONICA MADDOX ROBAnahi Cid [facility] Hyperlipidemia * (ICD-9-CM 272.4) Active 272.4 [facility] Hypertension * (ICD-9-CM 401.9) Active 401.9 GALILEA BENÍTEZ [facility] Hypertension * (ICD-9-CM 401.9) Active 401.9 SIMON NEELY [facility] Insomnia * (ICD-9-CM 780.52) Active 780.52 SIMON THOMAS [facility] Joint Pain Forearm Active 719.43 LEONIDAS GUZMAN [facility] Lower Leg Injury NOS Active 959.7 SHARRI GUZMAN [facility] Morbid Obesity * (ICD-9-CM 278.01) Active 278.01 DARION YOUNG [facility] Obesity * (ICD-9-CM 278.00) Active 278.00 G[facility]ILEA [facility] Onychomycosis (SNOMED CT 063635184) Active 110.1 SIMON NEELY [facility] Osteoarthosis Shoulder Active 715.91 VERNELL GUZMAN [facility] Pain in joint involving shoulder region (ICD-9-CM 719.41) Active 71 9.41 SIMON NEELY [facility] Routine Gynecological examination Active V72.31 SIMON NEELY [facility] Sciatica * (ICD-9-CM 724.3) Active 724.3 SIMON CAMP [facility] Unspecified chest pain * (ICD-9-CM 786.50) Active 786.50 MARK VIVAS [facility] Unsteady when walking Active [id number] HARRISON NEELY [facility] Urinary Incontinence * (ICD-9-CM 788.30) Active 788.30 JJ GAYTAN [facility] MUSCLE SPASM Inactive 728.85 May 29, 2007 Sep 02 Entered By: TONY BENÍTEZ Comment: shoulders TONY BENÍTEZ [facility] Radiology Reports: +/- 30 days of the encounter No Data Provided for This Section Pathology Reports: +/- 30 days of the encounter No Data Provided for This Section Encounter Notes: All associated encounter notes No Data Provided for This Section
--- OUTSIDE RECORDS SUMMARY | 2020-03-28 08:22 | XMS REPORT | Encounter Summary ---
Author Author Department of [facility] Organization Department of [facility] Affai Address [address] [place] [address] Phone Unavailable Care Team Providers Care Sergeant Of Officers Name Role Phone FLORINDA SIMON PCP Unavailable [...] PART A Aug 25, 2011 PART A [id number] GADBERRY,CHARLANNE PATIENT MEDICARE (WNR) MEDICARE (M) PART B Aug 25, 2011 PART B [id number] GADBERRY,CHARLANNE PATIENT MEDICARE (WNR) MEDICARE (M) PART A Aug 25, 2011 PART A [id number] GADBERRY,CHARLANNE PATIENT MEDICARE (WNR) MEDICARE (M) PART B Aug 25, 2011 PART B [id number] GADBERRY,CHARLANNE PATIENT MEDICARE (WNR) MEDICARE (M) PART A Aug 25, 2011 PART A [id number] SANDRA MORELOS PATIENT MEDICARE (WNR) MEDICARE (M) PART B Aug 25, 2011 PART B [id number] SANDRA MORELOS PATIENT MEDICARE PART D (WNR) MEDICARE (M) PART D Sep 25, 2012 PART D [id number] SANDRA WHITMAN PATIENT Selected Encounter This section includes the information on record at [place] for the Encounter. Date/Time Encounter Type Encounter Description Reason Provider Source Aug 06, 2019 02:01 PM Outpatient Encounter [facility] - IND ICD-10-CM F31.32 Bipolar disorder, current episode depressed, moderate with Provider Comments: Bipolar disorder ([facility] [id number]) KANG ZAYAS [facility] IHE Encounter Template Text not used by [place] Assessments - Encounter Diagnoses This section includes the primary and secondary diag noses documented for the Encounter. Date/Time Primary/Secondary Diagnosis Diagnosis Name Provider Source Aug 06, 2019 03:33 PM PRIMARY Bipolar disorder, current episode depressed, moderate ELLIE CORTEZ [facility] Plan of Treatment: Future Appointments (+ 6 months) and Future Tests (+/- 45 day s) The Plan of Treatment section includes future care activities for the patient fr om all [place] treatment facilities. This section includes future appointments and fu ture orders which are active, pending or scheduled. Future Appointments This section includes appointments that were scheduled t o occur 6 months from the date of the Encounter, up to a maximum of 20 appointme nts. The data comes from all [place] treatment facilities. Appointment Date/Time Appointment Type Appointment Facili ty Name Oct 09, 2019 09:30 AM AMBULATORY - NONE [facility] Nov 06, 2019 02:00 PM AMBULATORY - PSYCHIATRY DARION MARTINEZ [facility] Nov 06, 2019 02:01 PM AMBULATORY - PSYCHIATRY [facility] Nov 27, 2019 11:00 AM AMBULATORY - MEDICINE [facility] Jan 15, 2020 10:30 AM AMBULATORY - MEDICINE [facility] Jan 16, 2020 10:00 AM AMBULATORY - PSYCHIATRY DARION MARTINEZ [facility] Jan 23, 2020 02:00 PM AMBULATORY - MEDICINE [facility] Surgical Procedures: All associated to [...] and tobacco- related health factors from the [place] facility where the Encounter took place. Current Smoking Status This section includes the most current smoking, or tobacco -related health factor, from the [place] facility where the Encounter took place. Date/Time Current Smoking Status Comment Facility Nov 21, 2018 11:32 AM CURRENT NON-SMOKER GALINDO [facility] Tobacco Use History This section includes a history of the smoking, or tobacco -related health factors, that were collected on or before the date of the Encoun ter. The data comes from the [place] facility where the Encounter took place. Date/Time Smoking Status/Tobacco Use Comment [facility] Nov 21, 2018 11:32 AM LIFETIME NON-TOBACCO USER GALINDO [facility] Feb 27, 2017 09:38 AM CURRENT NON-SMOKER GALINDO [facility] Feb 27, 2017 09:38 AM LIFETIME NON-TOBACCO USER G[facility]INDO [facility] Sep 08, 2015 09:10 AM CURRENT NON-SMOKER GALINDO [facility] Sep 08, 2015 09:10 AM LIFETIME NON-TOBACCO USER GALINDO [facility] Jan 12, 2015 09:39 AM CURRENT NON-SMOKER GALINDO [facility] Jan 12, 2015 09:39 AM LIFETIME NON-TOBACCO USER G[facility]INDO [facility] Jan 10, 2014 01:20 PM CURRENT NON-SMOKER GALINDO [facility] Jan 10, 2014 01:20 PM LIFETIME NON-TOBACCO USER G[facility]INDO [facility] Oct 30, 2012 08:31 AM CURRENT NON-SMOKER GALINDO [facility] Oct 30, 2012 08:31 AM LIFETIME NON-TOBACCO USER G[facility]INDO [facility] Jun 01, 2011 11:19 AM CURRENT NON-SMOKER GALINDO [facility] Jun 01, 2011 11:19 AM LIFETIME NON-TOBACCO USER GALINDO [facility] Mar 21, 2011 01:50 PM CURRENT NON-SMOKER GALINDO [facility] Mar 21, 2011 01:50 PM LIFETIME NON-TOBACCO USER G[facility]INDO [facility] Mar 21, 2011 01:50 PM NON-TOBACCO USER GALINDO [facility] Aug 03, 2010 01:21 PM CURRENT NON-SMOKER GALINDO [facility] Aug 03, 2010 01:21 PM LIFETIME NON-TOBACCO USER GALINDO [facility] Jan 14, 2010 09:03 AM CURRENT NON-SMOKER GALINDO [facility] Jan 14, 2010 09:03 AM LIFETIME NON-TOBACCO USER GALINDO [facility] Mar 23, 2009 09:25 AM CURRENT NON-SMOKER GALINDO [facility] Mar 23, 2009 09:25 AM LIFETIME NON-TOBACCO USER GALINDO [facility] Oct 23, 2008 09:10 AM CURRENT NON-SMOKER GALINDO [facility] Oct 23, 2008 09:10 AM LIFETIME NON-TOBACCO [...] docume nt. The data comes from all [place] facilities. Date Advance Directives Provider Source Sep 15, 2009 ADVANCE DIRECTIVE DISCUSSION JADE VARMA [facility] Jul 21, 2006 ADVANCE DIRECTIVE [facility] Jul 12, 2006 ADVANCE DIRECTIVE DISCUSSION SAV PAULSON [facility] Allergies and Adverse Reactions (ADRs): All historical and current Section Date Range: From patient's date of to the date document was create d. This section includes Allergies and Adverse Reactions (ADR s) on record with [facility] for the patient. The data comes from a Critical access hospital treatment facilities. It does not list Allergies/ADRs that were removed or entered in error. Some allergies/ADRs may be reported in t he Immunization section. Allergen Event Date Event Type Reaction(s) Severity Source ENALAPRIL Aug 22, 2017 Propensity to adverse reactions to drug (diso rder) [facility] May 04, 2007 Propensity to adverse reactions to drug ( disorder) Cough [facility] [place] Aug 22, 2017 Propensity to adverse reactions to drug (diso rder) [facility] Oct 08, 2015 Propensity to adverse reactions to drug (disorder) [facility] [place] Aug 22, 2017 Propensity to adverse reactions to drug (diso rder) [facility] Jan 16, 2007 Propensity to adverse reactions to drug (disorder) Cough [facility] [place] Aug 22, 2017 Propensity to adverse reactions to drug (diso rder) [facility] Oct 23, 2008 Propensity to adverse reactions to drug ( disorder) Eruption [facility] 15 Medications: VA dispensed (-15 months) and Non-VA Documented (Obtained Outside V A) Section Date Range: 1) prescriptions processed by a VA pharmacy in the last 15 m [facility], and 2) all medications recorded in the VA medical record as "non-VA medic ations". Pharmacy terms refer to VA pharmacy's work on prescriptions. VA patient s are advised to take their medications as instructed by their health care team. The data comes from all [place] treatment facilities. Glossary of Pharmacy Terms:Active = A prescription that can be filled at the local [place] pharmacy.Active: On Hold = An active prescription that will not be filled until pharmacy resolves the issue.Active: Susp = An active prescription that is not scheduled to be filled yet.Clinic Order = A medication received during a visit to a [place] clinic or emergency department (currently not available).Discontinued [...] other providers that was filled outside the [place]. Or, it may be an over the [...] BLOOD GLUCOSE TESTING 50 Jun 06, 2020 [id number] February 21, 2020 SIMON NEELY AMLODIPINE BESYLATE 10MG TAB Active TAKE ONE TABLET BY MOUTH EVERY MORNING 90 January 23, 2021 [id number] Jan 23, 2020 SIMON NEELY AMLODIPINE BESYLATE 10MG TAB Discontinued TAKE ONE TA BLET BY MOUTH EVERY MORNING 90 Nov 27, 2019 [id number] Oct 21, 2019 SIMON NEELY ATORVASTATIN CA 20MG TAB Active TAKE ONE-HALF T ABLET BY MOUTH AT BEDTIME FOR CHOLESTEROL - REPORT ANY UNEXPLAINED MUSCLE PAIN/WEAKNESS TO YOUR PROVIDER TAKE IN PLACE OF CRESTOR, VA DOESNT SUPPLY CRESTOR, FOR CHOLESTEROL - REPORT ANY UNEXPLAINED MUSCLE PAIN/WEAKNESS TO YOUR PROVIDER TAKE IN PLACE OF CRESTOR, VA DOESNT SUPPLY CRESTOR, 45 January 23, 2021 [id number] Jan 23, 2020 HARRISON NEELY ATORVASTATIN CA 20MG TAB Discontinued TAKE ONE-HALF T ABLET BY MOUTH AT BEDTIME FOR CHOLESTEROL - REPORT ANY UNEXPLAINED MUSCLE PAIN/WEAKNESS TO YOUR PROVIDER TAKE IN PLACE OF CRESTOR, VA DOESNT SUPPLY CRESTOR, FOR CHOLESTEROL - REPORT ANY UNEXPLAINED MUSCLE PAIN/WEAKNESS TO YOUR PROVIDER TAKE IN PLACE OF CRESTOR, VA DOESNT SUPPLY CRESTOR, 45 Dec 07, 2019 [id number] Mar 01, 2019 HARRISON NEELY BRIEF,SUPER PLUS ABSORB WITH BARRIERS UNDERWEAR X-LARGE ATTE NDS Active USE DIRECTED DIRECTED FOR INCONTINENCE 56 Nov 04, 2020 [id number] Nov 09, 2019 SIMON NEELY BRIEF,SUPER PLUS ABSORB WITH BARRIERS UNDERWEAR X-LARGE ATTE NDS Discontinued USE DIRECTED DIRECTED FOR INCONTINENCE 56 Apr 01, 2020 [id number] Aug 06, 2019 SIMON NEELY GLIPIZIDE 5MG TAB Active TAKE ONE TABLET BY M OUTH EVERY DAY BEFORE BREAKFAST FOR DIABETES. TAKE 30 MINUTES BEFORE EATING. 90 Apr 22, 2020 [id number] February 12, 2020 SIMON NEELY GLIPIZIDE 5MG TAB Discontinued TAKE ONE TABLET BY M OUTH EVERY DAY BEFORE BREAKFAST FOR DIABETES. TAKE 30 MINUTES BEFORE EATING. 90 Feb 242019 [id number] February 12, 2020 SIMON NEELY GLIPIZIDE 5MG TAB Discontinued TAKE ONE TABLET BY M OUTH EVERY DAY BEFORE BREAKFAST FOR DIABETES. TAKE 30 MINUTES BEFORE EATING. 90 January [id number] Nov 24, 2019 SIMON NEELY GLIPIZIDE 5MG TAB Discontinued TAKE ONE TABLET BY M OUTH EVERY DAY BEFORE BREAKFAST FOR DIABETES. TAKE 30 MINUTES BEFORE EATING. 90 Nov [id number] Sep 05, 2019 SIMON NEELY LANCET,SOFTCLIX Active USE LANCET BIW FOR TESTING BL OOD GLUCOSE DIRECTED 100 Jun 06, 2020 [id number] Jun 07, 2019 SIMON NEELY C LITHIUM CARBONATE 300MG CAP Active TAKE 1 CAPSU LE BY MOUTH EVERY MORNING AND TAKE 3 CAPSULES BY MOUTH AT BEDTIME FOR MOOD. MUST MAKE AN APPT OR WILL TAPER AND DISCONTINUE MEDICATIONS 120 February 12, 2021 [id number] Mar 04, 2020 LINOELOISE DEMARCO [facility] LITHIUM CARBONATE 300MG CAP Discontinued TAKE 1 CAPSU LE BY MOUTH EVERY MORNING AND TAKE 3 CAPSULES BY MOUTH AT BEDTIME FOR MOOD. MUST MAKE AN APPT OR WILL TAPER AND DISCONTINUE MEDICATIONS 120 Aug 06, 2020 [id number] Dec 16, 2019 KANG ZAYAS [facility] LITHIUM CARBONATE 300MG CAP Discontinued TAKE 1 CAPSU LE BY MOUTH EVERY MORNING AND TAKE 3 CAPSULES BY MOUTH AT BEDTIME FOR MOOD. MUST MAKE AN APPT OR WILL TAPER AND DISCONTINUE MEDICATIONS 120 Jun 10, 2020 [id number] Jul 19, 2019 KIMBERLY TARIQ [facility] LITHIUM CARBONATE 300MG CAP Discontinued TAKE 1 CAPSU LE BY MOUTH EVERY MORNING AND TAKE 3 CAPSULES BY MOUTH AT BEDTIME FOR MOOD. MUST MAKE AN APPT OR WILL TAPER AND DISCONTINUE MEDICATIONS 120 Jul 03, 2019 [id number] Jun 03, 2019 [facility] LITHIUM CARBONATE 300MG CAP Discontinued TAKE 1 CAPSU LE BY MOUTH EVERY MORNING AND TAKE 3 CAPSULES BY MOUTH AT BEDTIME FOR MOOD. MUST MAKE AN APPT OR WILL TAPER AND DISCONTINUE MEDICATIONS 120 Mar 23, 2019 [id number] February 21, 2019 [facility] LITHIUM CARBONATE 300MG CAP Discontinued TAKE 1 CAPSU LE BY MOUTH EVERY MORNING AND TAKE 3 CAPSULES BY MOUTH AT BEDTIME FOR MOOD. 120 Dec 18, 2019 [id number] Jan 11, 2019 [facility] LITHIUM CARBONATE 300MG TAB,SA Discontinued TAKE [...] SPLIT, OR CHEW. 234 May 31, 2019 [id number] Apr 01, 2019 KIMBERLY BANG [facility] K[facility]OWN NON-VA MEDS MISCELLANEOUS Non-VA Non-VA Documented by: MICHELLE BARTHOLOMEW nted at: [facility] NO KNOWN NON-VA MEDS MISCELLANEOUS Non-VA Non-VA Documented by: GALILEA BENÍTEZ Docume nted at: [facility] OXYCODONE HCL 5MG TAB No n-VA TAKE ONE TABLET BY MOUTH EVERY 6 HOURS NEEDED Non-VA Docume nted by: SIMON NEELY Docume nted at: GALINDO [facility] QUETIAPINE FUMARATE 100MG TAB Active TAKE ONE-HALF TABL ET BY MOUTH AT BEDTIME 15 Mar 25, 2021 [id number] Mar 24, 2020 JASSONFLELOISE [facility] TRAMADOL HCL 50MG TAB No n-VA TAKE ONE TABLET BY MOUTH EVERY 6 HOURS NEEDED Non-VA Docume nted by: SIMON NEELY Docume nted at: GALINDO [facility] TRAZODONE HCL 100MG TAB Discontinued TAKE FOUR TABLET S BY MOUTH AT BEDTIME FOR MOOD OR SLEEP. 120 February 12, 2021 [id number] Mar 01, 2020 ELOISE HUYNH [facility] TRAZODONE HCL 100MG TAB Discontinued TAKE FOUR TABLET S BY MOUTH AT BEDTIME FOR MOOD OR SLEEP. 120 Aug 06, 2020 [id number] February 10, 2020 KANG ZAYAS [facility] TRAZODONE HCL 100MG TAB Discontinued TAKE FOUR TABLET S BY MOUTH AT BEDTIME FOR MOOD OR SLEEP. 120 Jun 03, 2020 [id number] Jul 29, 2019 KIMBERLY BANG [facility] TRAZODONE HCL 100MG TAB Discontinued TAKE FOUR TABLET S BY MOUTH AT BEDTIME FOR MOOD OR SLEEP. 120 February 05, 2020 [id number] May 06, 2019 KIMBERLY BANG [facility] TRAZODONE HCL 100MG TAB Discontinued TAKE FOUR TABLET S BY MOUTH AT BEDTIME FOR MOOD OR SLEEP. 120 Sep 14, 2019 [id number] Jan 07, 2019 KIMBERLY BANG [facility] TROSPIUM CL 20MG TAB Active TAKE ONE TABLET BY MOUTH TWO TIMES A DAY FOR BLADDER. TAKE ON AN EMPTY STOMACH OR AT LEAST ONE HOUR BEFORE FOOD. PER DR. BUTLER 180 January 23, 2021 [id number] Mar 16, 2020 SIMON NEELY [facility] TROSPIUM CL 20MG TAB Discontinued TAKE ONE TABLET BY MOUTH TWO TIMES A DAY FOR BLADDER. TAKE ON AN EMPTY STOMACH OR AT LEAST ONE HOUR BEFORE FOOD. PER DR. BUTLER 180 Apr 01, 2020 [id number] Dec 17, 2019 SIMON NEELY [facility] VENLAFAXINE HCL 75MG 24HR CAP,SA Active TAKE 3 CAPSULES BY MOUTH ONCE A DAY FOR MOOD. TAKE WITH FOOD. February 12, 2021 [id number] Mar 04, 2020 Arlette HUYNH [facility] VENLAFAXINE HCL 75MG 24HR CAP,SA Discontinued TAKE 3 CAPSULES BY MOUTH ONCE A DAY FOR MOOD. TAKE WITH FOOD. Aug 06, 2020 [id number] Jan 05 0 KANG ZAYAS [facility] VENLAFAXINE HCL 75MG 24HR CAP,SA Discontinued TAKE 3 CAPSULES BY MOUTH ONCE A DAY FOR MOOD. TAKE WITH FOOD. Aug 28, 2019 [id number] Aug 01 9 KIMBERLY TARIQ [facility] VENLAFAXINE HCL 75MG 24HR CAP,SA Discontinued TAKE 3 CAPSULES BY MOUTH ONCE A DAY FOR MOOD. TAKE WITH FOOD. February 05, 2020 [id number] Jul 01 9 KIMBERLY TARIQ [facility] Problems (Conditions): All historical and current Section Date Range: From patient's date of to the date document was create d. This section includes a list of Problems (Conditions) know n to [place] for the patient. It includes both active and inacti ve problems (conditions). The data comes from all [place] treatment facilities. Problem Status Problem Code Date of Onset Date of Resolution Comm ent(s) Provider Source Abnormality of Gait (ICD-9-CM 781.2) Active 781.2 GALILEA BENÍTEZ [facility] Achilles bursitis or tendinitis (ICD-9-CM 726.71) Active 726.71 RILEY GALVAN [facility] Acquired right hallux valgus Active [id number] RILEY GALVAN [facility] Ankle ulcer due to type 2 diabetes mellitus ([place] [address] [id number]) Active [id number] SIMON NEELY [facility] Bereavement (SNOMED CT 48816493) Active V62.89 SIMON NEELY [facility] Bilateral plantar fasciitis (SNOMED CT [id number]) Ac tive [id number] RILEY GALVAN [facility] BIPOLAR AFFECTIVE NOS Active 296.7 DEMETRA UREÑA [facility] Bipolar disorder (SNOMED CT 23446800) Active 46579479 KIMBERLY BANG [facility] Bunion Active 727.1 MONICA MADDOX [facility] Carpal Tunnel Syndrome * (ICD-9-CM 354.0) Active 354.0 Oct 16, 2002 Entered By: GALILEA BENÍTEZ Comment: rt GALILEA BENÍTEZ [facility] Cerebral Palsy NEC (ICD-9-CM 343.8) Active 343.8 SEPIDEH NELSON [facility] Depression * (ICD-9-CM 311./300.4) Active 311. SIMON NEELY [facility] Derangement of meniscus Active 717.5 J an 2001 Entered By: DEMETRA UREÑA Comment: left knee, arthroscopy 11/23 DEMETRA UREÑA [facility] Diabetes mellitus (SNOMED CT 42997849) Active 30588288 SIMON NEELY [facility] Difficulty balancing Active [id number] HARRISON NEELY [facility] Elevated Liver Function Tests (ICD-9-CM 794.8) Active 794.8 SIMON NEELY [facility] Enthesopathy of ankle and tarsus (ICD-9-CM 726.70/726.79) Active 72 6.70 BECCA JONES [facility] Flat foot Active 734. MONICA MADDOX [facility] GERD * (ICD-9-CM 530.81) Active 530.81 SIMON NEELY [facility] Hip Pain (ICD-9-CM 719.45) Active 719.45 SIMON YA [facility] Hyperkeratosis Active 701.1 MONICA MADDOX [facility] Hyperlipidemia * (ICD-9-CM 272.4) Active 272.4 SIMON NEELY [facility] Hypertension * (ICD-9-CM 401.9) Active 401.9 GALILEA BENÍTEZ [facility] Hypertension * (ICD-9-CM 401.9) Active 401.9 [facility] Insomnia * (ICD-9-CM 780.52) Active 780.52 SIMON THOMAS [facility] Joint Pain Forearm Active 719.43 LEONIDAS GUZMAN [facility] Lower Leg Injury NOS Active 959.7 [facility] Morbid Obesity * (ICD-9-CM 278.01) Active 278.[address] [facility] Obesity * (ICD-9-CM 278.00) Active 278.00 GALILEA WEST [facility] Onychomycosis (SNOMED CT 692628903) Active 110.1 SIMON NEELY [facility] Osteoarthosis Shoulder Active 715.91 VERNELL GUZMAN [facility] Pain in joint involving shoulder region (ICD-9-CM 719.41) Active 71 9.41 [facility]ON NEELY [facility] Routine Gynecological examination Active V72.31 SIMON NEELY [facility] Sciatica * (ICD-9-CM 724.3) Active 724.3 SIMON CAMP [facility] Unspecified chest pain * (ICD-9-CM 786.50) Active 786.50 MARK VIVAS [facility] Unsteady when walking Active [id number] [facility] Urinary Incontinence * (ICD-9-CM 788.30) Active 788.30 JJ GAYTAN [facility] MUSCLE SPASM Inactive 728.85 May [...]
--- OUTSIDE RECORDS SUMMARY | 2020-03-28 08:23 | XMS REPORT ---
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 Name Role Phone FLORINDASIMON PCP Unavailable [...] PART A Aug 25, 2011 PART A [id number] GADBERRY,CHARLANNE PATIENT MEDICARE (WNR) MEDICARE (M) PART B Aug 25, 2011 PART B [id number] GADBERRY,CHARLANNE PATIENT MEDICARE (WNR) MEDICARE (M) PART A Aug 25, 2011 PART A [id number] GADBERRY,CHARLANNE PATIENT MEDICARE (WNR) MEDICARE (M) PART B Aug 25, 2011 PART B [id number] GADBERRY,CHARLANNE PATIENT MEDICARE (WNR) MEDICARE (M) PART A Aug 25, 2011 PART A [id number] SANDRA MORELOS PATIENT MEDICARE (WNR) MEDICARE (M) PART B Aug 25, 2011 PART B [id number] SANDRA MORELOS PATIENT MEDICARE PART D (WNR) MEDICARE (M) PART D Sep 25, 2012 PART D [id number] SANDRA WHITMAN PATIENT Selected Encounter This section includes the information on record at [place] for the Encounter. Date/Time Encounter Type Encounter Description Reason Provider Source Jun 03, 2019 12:10 PM Outpatient Encounter ADMIN PAT ACTIVTIES (LALI WATT) DARION MARTINEZ [facility] IHE Encounter Template Text not used by DE Assessments - Encounter Diagnoses No Data Provided for This Section Plan of Treatment: Future Appointments (+ 6 months) and Future Tests (+/- 45 day s) The Plan of Treatment section includes future care activities for the patient fr om all DE treatment facilities. This section includes future appointments and fu ture orders which are active, pending or scheduled. Future Appointments This section includes appointments that were scheduled t o occur 6 months from the date of the Encounter, up to a maximum of 20 appointme nts. The data comes from all DE treatment facilities. Appointment Date/Time Appointment Type Appointment Facili ty Name Aug 06, 2019 02:00 PM AMBULATORY - PSYCHIATRY DARION MARTINEZ [facility] Aug 06, 2019 02:01 PM AMBULATORY - PSYCHIATRY [facility] Oct 09, 2019 09:30 AM AMBULATORY - NONE [facility] Nov 06, 2019 02:00 PM [facility] Nov 06, 2019 02:01 PM AMBULATORY - PSYCHIATRY [facility] Nov 27, 2019 11:00 AM AMBULATORY - MEDICINE [facility] Surgical Procedures: All associated to the encounter No Data Provided for This Section Lab Results: +/- 30 days of the encounter This section includes the Chemistry and Hematology Lab R esults on record with DE for the patient. Radiology Reports and Pathology Report s are provided separately, in subsequent sections. Lab Results This section contains the Chemistry/Hematology Results douglas t were resulted 30 days before or 30 days after the date of the Encounter. Date/Time Source Result Type Result - Unit Interpretation Reference Range Comment May 30, 2019 11:20 AM DARION MARTINEZ [facility] COMPREHENSIVE METABOLI C PANEL Specimen Type: [...] May 30, 2019 11:20 AM DARION MARTINEZ [facility] LITHIUM Specimen Type: SERUM Comment: ~For Test: LITHIUM ~Dose is expected to be at &TROUGH level. LITHIUM 0.7 mmol/L 0.6-1.2 May 30, 2019 11:20 AM JOSIE REYMUNDO HEMOGLOBIN A1C Specimen Type: BLOOD No comment [...] and tobacco- related health factors from the DE facility where the Encounter took place. Current Smoking Status This section includes the most current smoking, or tobacco -related health factor, from the DE facility where the Encounter took place. Date/Time Current Smoking Status Comment Facility Dec 28, 2015 10:28 AM CURRENT NON-SMOKER KERMIT Jose Roberto [facility] Tobacco Use History This section includes a history of the smoking, or tobacco -related health factors, that were collected on or before the date of the Encoun ter. The data comes from the DE facility where the Encounter took place. Date/Time Smoking Status/Tobacco Use Comment [facility] it Dec 28, 2015 10:28 AM LIFETIME NON-TOBACCO USER DARION MARTINEZ [facility] May 14, 2015 10:33 AM CURRENT NON-SMOKER DARION MARTINEZ [facility] May 14, 2015 10:33 AM LIFETIME NON-TOBACCO USER DARION MARTINEZ [facility] Dec 08, 2014 10:25 AM CURRENT NON-SMOKER DARION MARTINEZ [facility] Dec 08, 2014 10:25 AM LIFETIME NON-TOBACCO USER DARION MARTINEZ [facility] Oct 20, 2014 09:33 AM CURRENT NON-SMOKER DARION MARTINEZ [facility] Oct 20, 2014 09:33 AM LIFETIME NON-TOBACCO USER DARION MARTINEZ [facility] Jul 22, 2014 09:41 AM CURRENT NON-SMOKER DARION MARTINEZ [facility] Jul 22, 2014 09:41 AM LIFETIME NON-TOBACCO USER DARION MARTINEZ [facility] February 04, 2014 10:04 AM NON-TOBACCO USER DARION MARTINEZ [facility] Dec 16, 2013 11:26 AM CURRENT NON-SMOKER DARION MARTINEZ [facility] Dec 16, 2013 11:26 AM LIFETIME NON-TOBACCO USER DARION MARTINEZ [facility] Jan 14, 2013 01:14 PM CURRENT NON-SMOKER DARION MARTINEZ [facility] Jan 14, 2013 01:14 PM LIFETIME NON-TOBACCO USER DARION MARTINEZ [facility] February 14, 2012 09:57 AM CURRENT NON-SMOKER DARION MARTINEZ [facility] February 14, 2012 09:57 AM LIFETIME NON-TOBACCO USER DARION MARTINEZ [facility] Mar 14, 2011 01:13 PM CURRENT NON-SMOKER DARION MARTINEZ [facility] Mar 14, 2011 01:13 PM LIFETIME NON-TOBACCO USER DARION MARTINEZ [facility] Apr 15, 2010 09:39 AM CURRENT NON-SMOKER DARION MARTINEZ [facility] Apr 15, 2010 09:39 AM LIFETIME NON-TOBACCO USER DARION MARTINEZ [facility] Mar 09, 2010 02:30 PM CURRENT NON-SMOKER DARION MARTINEZ [facility] Mar 09, 2010 02:30 PM LIFETIME NON-TOBACCO USER DARION MARTINEZ [facility] Nov 06, 2009 10:50 AM CURRENT NON-SMOKER DARION MARTINEZ [facility] Nov 06, 2009 10:50 AM LIFETIME NON-TOBACCO USER DARION MARTINEZ [facility] Advance Directives: All historical and current Section Date Range: From patient's date of to the date document was create d. This section includes ALL of a patient's completed or amen ded [place] Advance and Rescinded Directives. The entries below indicate that a direc tive exists for the patient, but an actual copy is not included with this docume nt. The data comes from all [place] facilities. Date Advance Directives Provider Source Sep 15, 2009 ADVANCE DIRECTIVE DISCUSSION JADE VARMA [place] [facility] Jul 21, 2006 ADVANCE DIRECTIVE [facility] Jul 12, 2006 ADVANCE DIRECTIVE DISCUSSION SAV PAULSON [facility] Allergies and Adverse Reactions (ADRs): All historical and current Section Date Range: From patient's date of to the date document was create d. This section includes Allergies and Adverse Reactions (ADR s) on record with VA for the patient. The data comes from a ll [place] treatment facilities. It does not list Allergies/ADRs that were removed or entered in error. Some allergies/ADRs may be reported in t he Immunization section. Allergen Event Date Event Type Reaction(s) Severity Source ENALAPRIL Aug 22, 2017 Propensity to adverse reactions to drug (diso rder) [facility] ENALAPRIL May 04, 2007 Propensity to adverse reactions to drug ( disorder) Cough [facility] LEVAQUIN Aug 22, 2017 Propensity to adverse reactions to drug (diso rder) [facility] LEVAQUIN Oct 08, 2015 Propensity to adverse reactions to drug (disorder) Eruption [facility] 15 LISINOPRIL Aug 22, 2017 Propensity to adverse reactions to drug (diso rder) [facility] LISINOPRIL Jan 16, 2007 Propensity to adverse reactions to drug (disorder) Cough [facility] NIACIN Aug 22, 2017 Propensity to adverse reactions to drug (diso rder) [facility] NIACIN Oct 23, 2008 Propensity to adverse reactions to drug ( disorder) Eruption [facility] 15 Medications: VA dispensed (-15 months) and Non-VA Documented (Obtained Outside A) Section Date Range: 1) prescriptions processed by a [place] pharmacy in the last 15 m [facility], and 2) all medications recorded in the [place] medical record as "non-VA medic ations". Pharmacy terms refer to [place] pharmacy's work on prescriptions. VA patient s are advised to take their medications as instructed by their health care team. The data comes from all [place] treatment facilities. Glossary of Pharmacy Terms:Active = A prescription that can be filled at the local [place] pharmacy.Active: On Hold = An active prescription that will not be filled until pharmacy resolves the issue.Active: Susp = An active prescription that is not scheduled to be filled yet.Clinic Order = A medication received during a visit to a VA clinic or emergency department (currently not available).Discontinued [...] other providers that was filled outside the [place]. Or, it may be an over the [...] BLOOD GLUCOSE TESTING 50 Jun 06, 2020 [id number] February 21, 2020 SIMON NEELY AMLODIPINE BESYLATE 10MG TAB Active TAKE ONE TABLET BY MOUTH EVERY MORNING 90 January 23, 2021 [id number] Jan 23, 2020 SIMON NEELY AMLODIPINE BESYLATE 10MG TAB Discontinued TAKE ONE TA BLET BY MOUTH EVERY MORNING 90 Nov 27, 2019 [id number] Oct 21, 2019 SIMON NEELY ATORVASTATIN CA 20MG TAB Active TAKE ONE-HALF T ABLET BY MOUTH AT BEDTIME FOR CHOLESTEROL - REPORT ANY UNEXPLAINED MUSCLE PAIN/WEAKNESS TO YOUR PROVIDER TAKE IN PLACE OF CRESTOR, VA DOESNT SUPPLY CRESTOR, FOR CHOLESTEROL - REPORT ANY UNEXPLAINED MUSCLE PAIN/WEAKNESS TO YOUR PROVIDER TAKE IN PLACE OF CRESTOR, VA DOESNT SUPPLY CRESTOR, 45 January 23, 2021 [id number] Jan 23, 2020 HARRISON NEELY ATORVASTATIN CA 20MG TAB Discontinued TAKE ONE-HALF T ABLET BY MOUTH AT BEDTIME FOR CHOLESTEROL - REPORT ANY UNEXPLAINED MUSCLE PAIN/WEAKNESS TO YOUR PROVIDER TAKE IN PLACE OF CRESTOR, VA DOESNT SUPPLY CRESTOR, FOR CHOLESTEROL - REPORT ANY UNEXPLAINED MUSCLE PAIN/WEAKNESS TO YOUR PROVIDER TAKE IN PLACE OF CRESTOR, VA DOESNT SUPPLY CRESTOR, 45 Dec 07, 2019 [id number] Mar 01, 2019 HARRISON NEELY BRIEF,SUPER PLUS ABSORB WITH BARRIERS UNDERWEAR X-LARGE ATTE NDS Active USE DIRECTED DIRECTED FOR INCONTINENCE 56 Nov 04, 2020 [id number] Nov 09, 2019 SIMON NEELY BRIEF,SUPER PLUS ABSORB WITH BARRIERS UNDERWEAR X-LARGE ATTE NDS Discontinued USE DIRECTED DIRECTED FOR INCONTINENCE 56 Apr 01, 2020 [id number] Aug 06, 2019 SIMON NEELY GLIPIZIDE 5MG TAB Active TAKE ONE TABLET BY M OUTH EVERY DAY BEFORE BREAKFAST FOR DIABETES. TAKE 30 MINUTES BEFORE EATING. 90 Apr 22, 2020 [id number] February 12, 2020 SIMON NEELY GLIPIZIDE 5MG TAB Discontinued TAKE ONE TABLET BY M OUTH EVERY DAY BEFORE BREAKFAST FOR DIABETES. TAKE 30 MINUTES BEFORE EATING. 90 Feb 242019 [id number] February 12, 2020 SIMON NEELY GLIPIZIDE 5MG TAB Discontinued TAKE ONE TABLET BY M OUTH EVERY DAY BEFORE BREAKFAST FOR DIABETES. TAKE 30 MINUTES BEFORE EATING. 90 January [id number] Nov 24, 2019 SIMON NEELY GLIPIZIDE 5MG TAB Discontinued TAKE ONE TABLET BY M OUTH EVERY DAY BEFORE BREAKFAST FOR DIABETES. TAKE 30 MINUTES BEFORE EATING. 90 Nov [id number] Sep 05, 2019 SIMON NEELY LANCET,SOFTCLIX Active USE LANCET BIW FOR TESTING BL OOD GLUCOSE DIRECTED 100 Jun 06, 2020 [id number] Jun 07, 2019 SIMON NEELY C LITHIUM CARBONATE 300MG CAP Active TAKE 1 CAPSU LE BY MOUTH EVERY MORNING AND TAKE 3 CAPSULES BY MOUTH AT BEDTIME FOR MOOD. MUST MAKE AN APPT OR WILL TAPER AND DISCONTINUE MEDICATIONS 120 February 12, 2021 [id number] Mar 04, 2020 [facility] LITHIUM CARBONATE 300MG CAP Discontinued TAKE 1 CAPSU LE BY MOUTH EVERY MORNING AND TAKE 3 CAPSULES BY MOUTH AT BEDTIME FOR MOOD. MUST MAKE AN APPT OR WILL TAPER AND DISCONTINUE MEDICATIONS 120 Aug 06, 2020 [id number] Dec 16, 2019 [facility] LITHIUM CARBONATE 300MG CAP Discontinued TAKE 1 CAPSU LE BY MOUTH EVERY MORNING AND TAKE 3 CAPSULES BY MOUTH AT BEDTIME FOR MOOD. MUST MAKE AN APPT OR WILL TAPER AND DISCONTINUE MEDICATIONS 120 Jun 10, 2020 [id number] Jul 19, 2019 KIMBERLY TARIQ [facility] LITHIUM CARBONATE 300MG CAP Discontinued TAKE 1 CAPSU LE BY MOUTH EVERY MORNING AND TAKE 3 CAPSULES BY MOUTH AT BEDTIME FOR MOOD. MUST MAKE AN APPT OR WILL TAPER AND DISCONTINUE MEDICATIONS 120 Jul 03, 2019 [id number] Jun 03, 2019 KIMBERLY TARIQ [facility] LITHIUM CARBONATE 300MG CAP Discontinued TAKE 1 CAPSU LE BY MOUTH EVERY MORNING AND TAKE 3 CAPSULES BY MOUTH AT BEDTIME FOR MOOD. MUST MAKE AN APPT OR WILL TAPER AND DISCONTINUE MEDICATIONS 120 Mar 23, 2019 [id number] February 21, 2019 KIMBERLY TARIQ [facility] LITHIUM CARBONATE 300MG CAP Discontinued TAKE 1 CAPSU LE BY MOUTH EVERY MORNING AND TAKE 3 CAPSULES BY MOUTH AT BEDTIME FOR MOOD. 120 Dec 18, 2019 [id number] Jan 11, 2019 KIMBERLY BANG [facility] LITHIUM CARBONATE 300MG [...] SPLIT, OR CHEW. 234 May 31, 2019 [id number] Apr 01, 2019 KIMBERLY BANG [facility] NO KNOWN NON-VA MEDS MISCELLANEOUS Non-VA Non-VA Documented by: MICHELLE BARTHOLOMEW nted at: [facility] NO KNOWN NON-VA MEDS MISCELLANEOUS Non-VA Non-VA Documented by: GALILEA BENÍTEZ nted at: [facility] OXYCODONE HCL 5MG TAB No n-VA TAKE ONE TABLET BY MOUTH EVERY 6 HOURS NEEDED Non-VA Docume nted by: SIMON NEELYume nted at: [facility] QUETIAPINE FUMARATE 100MG TAB Active TAKE ONE-HALF TABL ET BY MOUTH AT BEDTIME 15 Mar 25, 2021 [id number] Mar 24, 2020 ELOISE HUYNH [facility] TRAMADOL HCL 50MG TAB No n-VA TAKE ONE TABLET BY MOUTH EVERY 6 HOURS NEEDED Non-VA Docume nted by: SIMON NEELY Docume nted at: [facility] TRAZODONE HCL 100MG TAB Discontinued TAKE FOUR TABLET S BY MOUTH AT BEDTIME FOR MOOD OR SLEEP. 120 February 12, 2021 [id number] Mar 01, 2020 [facility] TRAZODONE HCL 100MG TAB Discontinued TAKE FOUR TABLET S BY MOUTH AT BEDTIME FOR MOOD OR SLEEP. 120 Aug 06, 2020 [id number] February 10, 2020 [facility] TRAZODONE HCL 100MG TAB Discontinued TAKE FOUR TABLET S BY MOUTH AT BEDTIME FOR MOOD OR SLEEP. 120 Jun 03, 2020 [id number] Jul 29, 2019 [facility] TRAZODONE HCL 100MG TAB Discontinued TAKE FOUR TABLET S BY MOUTH AT BEDTIME FOR MOOD OR SLEEP. 120 February 05, 2020 [id number] May 06, 2019 [facility] TRAZODONE HCL 100MG TAB Discontinued TAKE FOUR TABLET S BY MOUTH AT BEDTIME FOR MOOD OR SLEEP. 120 Sep 14, 2019 [id number] Jan 07, 2019 [facility] TROSPIUM CL 20MG TAB Active TAKE ONE TABLET BY MOUTH TWO TIMES A DAY FOR BLADDER. TAKE ON AN EMPTY STOMACH OR AT LEAST ONE HOUR BEFORE FOOD. PER DR. BUTLER 180 January 23, 2021 [id number] Mar 16, 2020 SIMON NEELY [facility] TROSPIUM CL 20MG TAB Discontinued TAKE ONE TABLET BY MOUTH TWO TIMES A DAY FOR BLADDER. TAKE ON AN EMPTY STOMACH OR AT LEAST ONE HOUR BEFORE FOOD. PER DR. BUTLER 180 Apr 01, 2020 [id number] Dec 17, 2019 SIMON NEELY ONS [facility] VENLAFAXINE HCL 75MG 24HR CAP,SA Active TAKE 3 CAPSULES BY MOUTH ONCE A DAY FOR MOOD. TAKE WITH FOOD. 90 February 12, 2021 [id number] Mar 04, 2020 Arlette HUYNH [facility] VENLAFAXINE HCL 75MG 24HR CAP,SA Discontinued TAKE 3 CAPSULES BY MOUTH ONCE A DAY FOR MOOD. TAKE WITH FOOD. 90 Aug 06, 2020 [id number] Jan 05 0 KANG ZAYAS [facility] VENLAFAXINE HCL 75MG 24HR CAP,SA Discontinued TAKE 3 CAPSULES BY MOUTH ONCE A DAY FOR MOOD. TAKE WITH FOOD. 90 Aug 28, 2019 [id number] Aug 01 9 KIMBERLY TARIQ [facility] VENLAFAXINE HCL 75MG 24HR CAP,SA Discontinued TAKE 3 CAPSULES BY MOUTH ONCE A DAY FOR MOOD. TAKE WITH FOOD. 90 February 05, 2020 [id number] Jul 01 9 KIMBERLY TARIQ [facility] Problems (Conditions): All historical and current Section Date Range: From patient's date of to the date document was create d. This section includes a list of Problems (Conditions) know n to VA for the patient. It includes both active and inacti ve problems (conditions). The data comes from all [place] treatment facilities. Problem Status Problem Code Date of Onset Date of Resolution Comm ent(s) Provider Source Abnormality of Gait (ICD-9-CM 781.2) Active 781.2 GALILEA BENÍTEZ [facility] Achilles bursitis or tendinitis (ICD-9-CM 726.71) Active 726.71 RILEY GALVAN [facility] Acquired right hallux valgus Active [id number] RILEY GALVAN [facility] Ankle ulcer due to type 2 diabetes mellitus ([place] [address] 237031222) Active [id number] SIMON NEELY [facility] Bereavement (SNOMED CT 24407443) Active V62.89 SIMON NEELY [facility] Bilateral plantar fasciitis (SNOMED CT [id number]) Ac tive [id number] RILEY GALVAN [facility] BIPOLAR AFFECTIVE NOS Active 296.7 DEMETRA UREÑA [facility] Bipolar disorder (SNOMED CT 11123745) Active 56757597 KIMBERLY BANG [facility] Bunion Active 727.1 MONICA MADDOX [facility] Carpal Tunnel Syndrome * (ICD-9-CM 354.0) Active 354.0 Oct 16, 2002 Entered By: GALILEA BENÍTEZ Comment: rt GALILEA BENÍTEZ [facility] Cerebral Palsy NEC (ICD-9-CM 343.8) Active 343.8 SEPIDEH NELSON [facility] Depression * (ICD-9-CM 311./300.4) Active 311. SIMON NEELY [facility] Derangement of meniscus Active 717.5 J an 2001 Entered By: DEMETRA UREÑA Comment: left knee, arthroscopy 11/23 DEMETRA UREÑA [facility] Diabetes mellitus (SNOMED CT 09815476) Active 58324855 SIMON NEELY [facility] Difficulty balancing Active 460007696 HARRISON NEELY [facility] Elevated Liver Function Tests (ICD-9-CM 794.8) Active 794.8 SIMON NEELY [facility] Enthesopathy of ankle and tarsus (ICD-9-CM 726.70/726.79) Active 72 6.70 BECCA JONES [facility] Flat foot Active 734. [facility] GERD * (ICD-9-CM 530.81) Active 530.81 SIMON NEELY [facility] Hip Pain (ICD-9-CM 719.45) Active 719.45 [facility] Hyperkeratosis Active 701.1 [facility] Hyperlipidemia * (ICD-9-CM 272.4) Active 272.4 SIMON NEELY [facility] Hypertension * (ICD-9-CM 401.9) Active 401.9 GALILEA BENÍTEZ [facility] Hypertension * (ICD-9-CM 401.9) Active 401.9 SIMON NEELY [facility] Insomnia * (ICD-9-CM 780.52) Active 780.52 SIMON THOMAS [facility] Joint Pain Forearm Active 719.43 [facility] Lower Leg Injury NOS Active 959.7 SHARRI GUZMAN [facility] Morbid Obesity * (ICD-9-CM 278.01) Active 278.[address] [facility] Obesity * (ICD-9-CM 278.00) Active 278.00 GALILEA WEST [facility] Onychomycosis (SNOMED CT 376063623) Active 110.1 [facility] Osteoarthosis Shoulder Active 715.91 VERNELL GUZMAN DARION [facility] Pain in joint involving shoulder region (ICD-9-CM 719.41) Active 71 9.41 SIMON NEELY [facility] Routine Gynecological examination Active V72.31 [facility] Sciatica * (ICD-9-CM 724.3) Active 724.3 [facility]ON [facility] Unspecified chest pain * (ICD-9-CM 786.50) Active 786.50 MARK VIVAS [facility] Unsteady when walking Active 02480724 HARRISON NEELY [facility] Urinary Incontinence * (ICD-9-CM 788.30) Active 788.30 JJ GAYTAN [facility] MUSCLE SPASM Inactive 728.85 May 29, 2007 Sep 02, 14 11 Entered By: TONY BENÍTEZ Comment: shoulders TONY BENÍTEZ [facility] Radiology Reports: +/- 30 days of the encounter No Data Provided for This Section Pathology Reports: +/- 30 days of the encounter No Data Provided for This Section Encounter Notes: All associated encounter notes This section contains the clinical notes associated to the Encounter. Date/Time Encounter Note(s) Provider Source Jun 03, 2019 12:10 PM ADMINISTRATIVE NOTE: LOCAL TITLE: [place] [facility] STANDARD TITLE: ADMINISTRATIVE NOTE DATE OF NOTE: JUN 03, 2019@12:10 ENTRY DATE: JUN 03, 2019@12:10:15 AUTHOR: WILL KERNS EXP COSIGNER: URGENCY: STATUS: COMPLETED [facility] Administrative Note: Scheduling: NO ANSWER/NO MACHINE On May@10:05 an attempt was made to contact to schedule appointment in Transfer [facility] to 60min New Provider clinic. There was no answer to my call and no option to leave message at this time. / Will continue to attempt to contact. Thank you. Addendum: ANSWERING MACHINE MESSAGE On May@12:08 pn an attempt was made to contact [place] to schedule Transfer [facility] to 60min New Provider appointment in: [facility]/New Provider clinic. A message including the purpose of the call and a call back number was left on an answering machine. / Letter previously sent 05/10/2019. Thank you. /susie/ WILL KERNS [facility] Signed: 06/03/2019 12:17 WILL KERNS [facility]
--- OUTSIDE RECORDS SUMMARY | 2020-03-28 08:23 | XMS REPORT | Encounter Summary ---
Author Author Department of [facility] center[facility]A Organization Department of [facility] Affai rs Address [address] [place] [address] Phone Unavailable Care Team Providers Care Alteration Tailor Name Role Phone FLORINDA SIMON PCP Unavailable [...] PART A Aug 25, 2011 PART A [id number] GADBERRY,CHARLANNE PATIENT MEDICARE (WNR) MEDICARE (M) PART B Aug 25, 2011 PART B [id number] GADBERRY,CHARLANNE PATIENT MEDICARE (WNR) MEDICARE (M) PART A Aug 25, 2011 PART A [id number] GADBERRY,CHARLANNE PATIENT MEDICARE (WNR) MEDICARE (M) PART B Aug 25, 2011 PART B [id number] GADBERRY,CHARLANNE PATIENT MEDICARE (WNR) MEDICARE (M) PART A Aug 25, 2011 PART A [id number] SANDRA MORELOS PATIENT MEDICARE (WNR) MEDICARE (M) PART B Aug 25, 2011 PART B [id number] SANDRA MORELOS PATIENT MEDICARE PART D (WNR) MEDICARE (M) PART D Sep 25, 2012 PART D [id number] SANDRA WHITMAN PATIENT Selected Encounter This section includes the information on record at [place] for the Encounter. Date/Time Encounter Type Encounter Description Reason Provider Source Jun 03, 2019 09:55 AM Outpatient Encounter TELEPHONE MH ICD-1 0-CM F31.32 Bipolar disorder, current episode depressed, moderate with Provider Comments: Bipolar disorder ([facility] [id number]) EMBER JARVIS [facility] IHE Encounter Template Text not used by [place] Assessments - Encounter Diagnoses This section includes the primary and secondary diag noses documented for the Encounter. Date/Time Primary/Secondary Diagnosis Diagnosis Name Provider Source Jun 03, 2019 09:55 AM PRIMARY Bipolar disorder, current episode depressed, moderate EMBER JARVIS [facility] Jun 03, 2019 09:55 AM SECONDARY Other specified counseling EMBER PATEL [facility] Plan of Treatment: Future Appointments (+ 6 months) and Future Tests (+/- 45 day s) The Plan of Treatment section includes future care activities for the patient fr om all [place] treatment facilities. This section includes future appointments and fu ture orders which are active, pending or scheduled. Future Appointments This section includes appointments that were scheduled t o occur 6 months from the date of the Encounter, up to a maximum of 20 appointme nts. The data comes from all [place] treatment facilities. Appointment Date/Time Appointment Type Appointment Facili ty Name Aug 06, 2019 02:00 PM AMBULATORY - PSYCHIATRY DARION Cid [facility] Aug 06, 2019 02:01 PM AMBULATORY - PSYCHIATRY [facility] Oct 09, 2019 09:30 AM AMBULATORY - NONE [facility] Nov 06, 2019 02:00 PM AMBULATORY - PSYCHIATRY DARION Cid [facility] Nov 06, 2019 02:01 PM AMBULATORY - PSYCHIATRY GALINDO [facility] Nov 27, 2019 11:00 AM AMBULATORY - MEDICINE [facility] Surgical Procedures: All associated to the encounter No Data Provided for This Section Lab Results: +/- 30 days of the encounter This section includes the Chemistry and Hematology Lab R esults on record with [place] for the patient. Radiology Reports and Pathology Report s are provided separately, in subsequent sections. Lab Results This section contains the Chemistry/Hematology Results douglas t were resulted 30 days before or 30 days after the date of the Encounter. Date/Time Source Result Type Result - Unit Interpretation Reference Range Comment May 30, 2019 11:20 AM DARION MARTINEZ [facility] COMPREHENSIVE METABOLI C PANEL Specimen Type: [...] >60 May 30, 2019 11:20 AM [facility] LITHIUM Specimen Type: SERUM Comment: ~For Test: LITHIUM ~Dose is expected to be at &TROUGH level. LITHIUM 0.7 mmol/L 0.6-1.2 May 30, 2019 11:20 AM [facility] HEMOGLOBIN A1C Specimen Type: [...] and tobacco- related health factors from the [place] facility where the Encounter took place. Current Smoking Status This section includes the most current smoking, or tobacco -related health factor, from the [place] facility where the Encounter took place. Date/Time Current Smoking Status Comment Facility Dec 28, 2015 10:28 AM CURRENT NON-SMOKER DARION MARTINEZ [facility] Tobacco Use History This section includes a history of the smoking, or tobacco -related health factors, that were collected on or before the date of the Encoun ter. The data comes from the [place] facility where the Encounter took place. Date/Time Smoking Status/Tobacco Use Comment Facil jdy Dec 28, 2015 10:28 AM LIFETIME NON-TOBACCO USER DARION MARTINEZ [facility] May 14, 2015 10:33 AM CURRENT NON-SMOKER DARION Cid [facility] May 14, 2015 10:33 AM LIFETIME NON-TOBACCO USER DARION Jose Roberto [facility] Dec 08, 2014 10:25 AM CURRENT NON-SMOKER DARION Jose Roberto [facility] Dec 08, 2014 10:25 AM LIFETIME NON-TOBACCO USER DARION Jose Roberto [facility] Oct 20, 2014 09:33 AM CURRENT NON-SMOKER DARION Jose Roberto [facility] Oct 20, 2014 09:33 AM LIFETIME NON-TOBACCO USER DARION Cid [facility] Jul 22, 2014 09:41 AM CURRENT NON-SMOKER MAY Jose Roberto [facility] Jul 22, 2014 09:41 AM LIFETIME NON-TOBACCO USER DARION Jose Roberto [facility] February 04, 2014 10:04 AM NON-TOBACCO USER DARION MARTINEZ [facility] Dec 16, 2013 11:26 AM CURRENT [facility]SMOKER [facility] Dec 16, 2013 11:26 AM LIFETIME NON-TOBACCO USER DARION Cid [facility] Jan 14, 2013 01:14 PM CURRENT NON-SMOKER DARION Cid [facility] Jan 14, 2013 01:14 PM LIFETIME NON-TOBACCO USER DARION Cid [facility] February 14, 2012 09:57 AM CURRENT NON-SMOKER DARION Jose Roberto [facility] February 14, 2012 09:57 AM LIFETIME NON-TOBACCO USER DARION Cid [facility] Mar 14, 2011 01:13 PM CURRENT NON-SMOKER [facility] Mar 14, 2011 01:13 PM LIFETIME NON-TOBACCO USER DARION Cid [facility] Apr 15, 2010 09:39 AM CURRENT NON-SMOKER DARION Cid [facility] Apr 15, 2010 09:39 AM LIFETIME NON-TOBACCO USER DARION Cid [facility] Mar 09, 2010 02:30 PM CURRENT NON-SMOKER [facility] Mar 09, 2010 02:30 PM LIFETIME NON-TOBACCO USER DARION Cid [facility] Nov 06, 2009 10:50 AM CURRENT NON-SMOKER [facility] Nov 06, 2009 10:50 AM LIFETIME NON-TOBACCO USER DARION MARTINEZ [facility] Advance Directives: All historical and current Section Date Range: From patient's date of to the date document was create d. This section includes ALL of a patient's completed or amen ded [place] Advance and Rescinded Directives. The entries below indicate that a direc tive exists for the patient, but an actual copy is not included with this docume nt. The data comes from all [place] facilities. Date Advance Directives Provider Source Sep 15, 2009 ADVANCE DIRECTIVE DISCUSSION JADE VARMA [facility] Jul 21, 2006 ADVANCE DIRECTIVE [facility] Jul 12, 2006 ADVANCE DIRECTIVE DISCUSSION SAV [facility] Allergies and Adverse Reactions (ADRs): All historical and current Section Date Range: From patient's date of to the date document was create d. This section includes Allergies and Adverse Reactions (ADR s) on record with [place] for the patient. The data comes from a ll [place] treatment facilities. It does not list Allergies/ADRs that were removed or entered in error. Some allergies/ADRs may be reported in t he Immunization section. Allergen Event Date Event Type Reaction(s) Severity Source ENALAPRIL Aug 22, 2017 Propensity to adverse reactions to drug (diso rder) [facility] ENALAPRIL May 04, 2007 Propensity to adverse reactions to drug ( disorder) Cough [facility] LEVAQUIN Aug 22, 2017 Propensity to adverse reactions to drug (diso rder) [facility] LEVAQUIN Oct 08, 2015 Propensity to adverse reactions to drug (disorder) Eruption [facility] 15 LISINOPRIL Aug 22, 2017 Propensity to adverse reactions to drug (diso rder) [facility] LISINOPRIL Jan 16, 2007 Propensity to adverse reactions to drug (disorder) Cough [facility] NIACIN Aug 22, 2017 Propensity to adverse reactions to drug (diso rder) [facility] NIACIN Oct 23, 2008 Propensity to adverse reactions to drug ( disorder) Eruption [facility] 15 Medications: VA dispensed (-15 months) and Non-VA Documented (Obtained Outside A) Section Date Range: 1) prescriptions processed by a [place] pharmacy in the last 15 m [facility], and 2) all medications recorded in the [place] medical record as "non-VA medic ations". Pharmacy terms refer to VA pharmacy's work on prescriptions. VA patient s are advised to take their medications as instructed by their health care team. The data comes from all [place] treatment facilities. Glossary of Pharmacy Terms:Active = A prescription that can be filled at the local VA pharmacy.Active: On Hold = An active prescription that will not be filled until pharmacy resolves the issue.Active: Susp = An active prescription that is not scheduled to be filled yet.Clinic Order = A medication received during a visit to a [place] clinic or emergency department (currently not available).Discontinued [...] other providers that was filled outside the [place]. Or, it may be an over the [...] BLOOD GLUCOSE TESTING 50 Jun 06, 2020 [id number] February 21, 2020 SIMON NEELY AMLODIPINE BESYLATE 10MG TAB Active TAKE ONE TABLET BY MOUTH EVERY MORNING 90 January 23, 2021 [id number] Jan 23, 2020 SIMON NEELY AMLODIPINE BESYLATE 10MG TAB Discontinued TAKE ONE TA BLET BY MOUTH EVERY MORNING 90 Nov 27, 2019 [id number] Oct 21, 2019 SIMON NEELY ATORVASTATIN CA 20MG TAB Active TAKE ONE-HALF T ABLET BY MOUTH AT BEDTIME FOR CHOLESTEROL - REPORT ANY UNEXPLAINED MUSCLE PAIN/WEAKNESS TO YOUR PROVIDER TAKE IN PLACE OF CRESTOR, VA DOESNT SUPPLY CRESTOR, FOR CHOLESTEROL - REPORT ANY UNEXPLAINED MUSCLE PAIN/WEAKNESS TO YOUR PROVIDER TAKE IN PLACE OF CRESTOR, [facility] DOESNT SUPPLY CRESTOR, 45 January 23, 2021 [id number] Jan 23, 2020 HARRISON NEELY ATORVASTATIN CA 20MG TAB Discontinued TAKE ONE-HALF T ABLET BY MOUTH AT BEDTIME FOR CHOLESTEROL - REPORT ANY UNEXPLAINED MUSCLE PAIN/WEAKNESS TO YOUR PROVIDER TAKE IN PLACE OF CRESTOR, [facility] DOESNT SUPPLY CRESTOR, FOR CHOLESTEROL - REPORT ANY UNEXPLAINED MUSCLE PAIN/WEAKNESS TO YOUR PROVIDER TAKE IN PLACE OF CRESTOR, VA DOESNT SUPPLY CRESTOR, 45 Dec 07, 2019 [id number] Mar 01, 2019 HARRISON NEELY BRIEF,SUPER PLUS ABSORB WITH BARRIERS UNDERWEAR X-LARGE ATTE NDS Active USE DIRECTED DIRECTED FOR INCONTINENCE 56 Nov 04, 2020 [id number] Nov 09, 2019 SIMON NEELY BRIEF,SUPER PLUS ABSORB WITH BARRIERS UNDERWEAR X-LARGE ATTE NDS Discontinued USE DIRECTED DIRECTED FOR INCONTINENCE 56 Apr 01, 2020 [id number] Aug 06, 2019 SIMON NEELY GLIPIZIDE 5MG TAB Active TAKE ONE TABLET BY M OUTH EVERY DAY BEFORE BREAKFAST FOR DIABETES. TAKE 30 MINUTES BEFORE EATING. 90 Apr 22, 2020 [id number] February 12, 2020 SIMON NEELY GLIPIZIDE 5MG TAB Discontinued TAKE ONE TABLET BY M OUTH EVERY DAY BEFORE BREAKFAST FOR DIABETES. TAKE 30 MINUTES BEFORE EATING. 90 Feb 242019 [id number] February 12, 2020 SIMON NEELY GLIPIZIDE 5MG TAB Discontinued TAKE ONE TABLET BY M OUTH EVERY DAY BEFORE BREAKFAST FOR DIABETES. TAKE 30 MINUTES BEFORE EATING. 90 January [id number] Nov 24, 2019 SIMON NEELY GLIPIZIDE 5MG TAB Discontinued TAKE ONE TABLET BY M OUTH EVERY DAY BEFORE BREAKFAST FOR DIABETES. TAKE 30 MINUTES BEFORE EATING. 90 Nov [id number] Sep 05, 2019 SIMON NEELY LANCET,SOFTCLIX Active USE LANCET BIW FOR TESTING BL OOD GLUCOSE DIRECTED 100 Jun 06, 2020 [id number] Jun 07, 2019 SIMON NEELY C LITHIUM CARBONATE 300MG CAP Active TAKE 1 CAPSU LE BY MOUTH EVERY MORNING AND TAKE 3 CAPSULES BY MOUTH AT BEDTIME FOR MOOD. MUST MAKE AN APPT OR WILL TAPER AND DISCONTINUE MEDICATIONS 120 February 12, 2021 [id number] Mar 04, 2020 ELOISE HUYNH [facility] LITHIUM CARBONATE 300MG CAP Discontinued TAKE 1 CAPSU LE BY MOUTH EVERY MORNING AND TAKE 3 CAPSULES BY MOUTH AT BEDTIME FOR MOOD. MUST MAKE AN APPT OR WILL TAPER AND DISCONTINUE MEDICATIONS 120 Aug 06, 2020 [id number] Dec 16, 2019 KANG ZAYAS [facility] LITHIUM CARBONATE 300MG CAP Discontinued TAKE 1 CAPSU LE BY MOUTH EVERY MORNING AND TAKE 3 CAPSULES BY MOUTH AT BEDTIME FOR MOOD. MUST MAKE AN APPT OR WILL TAPER AND DISCONTINUE MEDICATIONS 120 Jun 10, 2020 [id number] Jul 19, 2019 KIMBERLY TARIQ [facility] LITHIUM CARBONATE 300MG CAP Discontinued TAKE 1 CAPSU LE BY MOUTH EVERY MORNING AND TAKE 3 CAPSULES BY MOUTH AT BEDTIME FOR MOOD. MUST MAKE AN APPT OR WILL TAPER AND DISCONTINUE MEDICATIONS 120 Jul 03, 2019 [id number] Jun 03, 2019 [facility] LITHIUM CARBONATE 300MG CAP Discontinued TAKE 1 CAPSU LE BY MOUTH EVERY MORNING AND TAKE 3 CAPSULES BY MOUTH AT BEDTIME FOR MOOD. MUST MAKE AN APPT OR WILL TAPER AND DISCONTINUE MEDICATIONS 120 Mar 23, 2019 [id number] February 21, 2019 KIMBERLY TARIQ [facility] LITHIUM CARBONATE 300MG CAP Discontinued TAKE 1 CAPSU LE BY MOUTH EVERY MORNING AND TAKE 3 CAPSULES BY MOUTH AT BEDTIME FOR MOOD. 120 Dec 18, 2019 [id number] Jan 11, 2019 [facility] LITHIUM CARBONATE 300MG TAB,SA Discontinued TAKE [...] SPLIT, OR CHEW. 234 May 31, 2019 [id number] Apr 01, 2019 [facility]IM[facility]LY [facility] NO KNOWN NON-VA MEDS MISCELLANEOUS Non-VA Non-VA Documented by: MICHELLE BARTHOLOMEW nted at: [facility] NO KNOWN NON-VA MEDS MISCELLANEOUS Non-VA Non-VA Documented by: GALILEA BENÍTEZ nted at: [facility] OXYCODONE HCL 5MG TAB No n-VA TAKE ONE TABLET BY MOUTH EVERY 6 HOURS NEEDED Non-VA Docume nted by: SIMON NEELY Docume nted at: [facility] QUETIAPINE FUMARATE 100MG TAB Active TAKE ONE-HALF TABL ET BY MOUTH AT BEDTIME 15 Mar 25, 2021 [id number] Mar 24, 2020 JASSONFLELOISE [facility] TRAMADOL HCL 50MG TAB No n-VA TAKE ONE TABLET BY MOUTH EVERY 6 HOURS NEEDED Non-VA Docume nted by: SIMON NEELY Docume nted at: [facility] TRAZODONE HCL 100MG TAB Discontinued TAKE FOUR TABLET S BY MOUTH AT BEDTIME FOR MOOD OR SLEEP. 120 February 12, 2021 [id number] Mar 01, 2020 [facility]NH [facility] TRAZODONE HCL 100MG TAB Discontinued TAKE FOUR TABLET S BY MOUTH AT BEDTIME FOR MOOD OR SLEEP. 120 Aug 06, 2020 [id number] February 10, 2020 [facility]ANG ZAYAS [facility] TRAZODONE HCL 100MG TAB Discontinued TAKE FOUR TABLET S BY MOUTH AT BEDTIME FOR MOOD OR SLEEP. 120 Jun 03, 2020 [id number] Jul 29, 2019 KIMBERLY BANG [facility] TRAZODONE HCL 100MG TAB Discontinued TAKE FOUR TABLET S BY MOUTH AT BEDTIME FOR MOOD OR SLEEP. 120 February 05, 2020 [id number] May 06, 2019 KIMBERLY BANG [facility] TRAZODONE HCL 100MG TAB Discontinued TAKE FOUR TABLET S BY MOUTH AT BEDTIME FOR MOOD OR SLEEP. 120 Sep 14, 2019 [id number] Jan 07, 2019 KIMBERLY BANG [facility] TROSPIUM CL 20MG TAB Active TAKE ONE TABLET BY MOUTH TWO TIMES A DAY FOR BLADDER. TAKE ON AN EMPTY STOMACH OR AT LEAST ONE HOUR BEFORE FOOD. PER DR. BUTLER 180 January 23, 2021 [id number] Mar 16, 2020 SIMON NEELY [facility] TROSPIUM CL 20MG TAB Discontinued TAKE ONE TABLET BY MOUTH TWO TIMES A DAY FOR BLADDER. TAKE ON AN EMPTY STOMACH OR AT LEAST ONE HOUR BEFORE FOOD. PER DR. BUTLER 180 Apr 01, 2020 [id number] Dec 17, 2019 SIMON NEELY PARS [facility] VENLAFAXINE HCL 75MG 24HR CAP,SA Active TAKE 3 CAPSULES BY MOUTH ONCE A DAY FOR MOOD. TAKE WITH FOOD. February 12, 2021 [id number] Mar 04, 2020 JASSONFANGArlette [facility] VENLAFAXINE HCL 75MG 24HR CAP,SA Discontinued TAKE 3 CAPSULES BY MOUTH ONCE A DAY FOR MOOD. TAKE WITH FOOD. Aug 06, 2020 [id number] Jan 05 0 KANG ZAYAS [facility] VENLAFAXINE HCL 75MG 24HR CAP,SA Discontinued TAKE 3 CAPSULES BY MOUTH ONCE A DAY FOR MOOD. TAKE WITH FOOD. Aug 28, 2019 [id number] Aug 01 9 KIMBERLY TARIQ [facility] VENLAFAXINE HCL 75MG 24HR CAP,SA Discontinued TAKE 3 CAPSULES BY MOUTH ONCE A DAY FOR MOOD. TAKE WITH FOOD. February 05, 2020 [id number] Jul 01 9 KIMBERLY TARIQ [facility] Problems (Conditions): All historical and current Section Date Range: From patient's date of to the date document was create d. This section includes a list of Problems (Conditions) know n to [place] for the patient. It includes both active and inacti ve problems (conditions). The data comes from all [place] treatment facilities. Problem Status Problem Code Date of Onset Date of Resolution Comm ent(s) Provider Source Abnormality of Gait (ICD-9-CM 781.2) Active 781.2 GALILEA BENÍTEZ [facility] Achilles bursitis or tendinitis (ICD-9-CM 726.71) Active 726.71 RILEY GALVAN [facility] Acquired right hallux valgus Active [id number] RILEY GALVAN [facility] Ankle ulcer due to type 2 diabetes mellitus ([place] [address] [id number]) Active [id number] SIM[facility] NEELY [facility] Bereavement (SNOMED CT 04554351) Active V62.89 SIMON NEELY [facility] Bilateral plantar fasciitis (SNOMED CT [id number]) Ac tive [id number] RILEY GALVAN [facility] BIPOLAR AFFECTIVE NOS Active 296.7 DEMETRA UREÑA [facility] Bipolar disorder (SNOMED CT 59395133) Active 80295380 KIMBERLY BANG [facility] Bunion Active 727.1 MONICA MADDOX [facility] Carpal Tunnel Syndrome * (ICD-9-CM 354.0) Active 354.0 Oct 16, 2002 Entered By: GALILEA BENÍTEZ Comment: rt GALILEA BENÍTEZ [facility] Cerebral Palsy NEC (ICD-9-CM 343.8) Active 343.8 SEPIDEH NELSON [facility] Depression * (ICD-9-CM 311./300.4) Active 311. SIMON NEELY [facility] Derangement of meniscus Active 717.5 J 2001 Entered By: DEMETRA UREÑA Comment: left knee, arthroscopy 11/23 [facility] Diabetes mellitus (SNOMED CT 08789052) Active 33222378 SIMON NEELY [facility] Difficulty balancing Active 784046130 HARRISON NEELY [facility] Elevated Liver Function Tests (ICD-9-CM 794.8) Active 794.8 SIMON NEELY [facility] Enthesopathy of ankle and tarsus (ICD-9-CM 726.70/726.79) Active 72 6.70 BECCA JONES [facility] Flat foot Active 734. MONICA MADDOX [facility] GERD * (ICD-9-CM 530.81) Active 530.81 SIMON NEELY [facility] Hip Pain (ICD-9-CM 719.45) Active 719.45 SIMON YA [facility] Hyperkeratosis Active 701.1 MONICA MADDOX RT Jose Roberto [facility] Hyperlipidemia * (ICD-9-CM 272.4) Active 272.4 SIMON NEELY [facility] Hypertension * (ICD-9-CM 401.9) Active 401.9 GALILEA BENÍTEZ [facility] Hypertension * (ICD-9-CM 401.9) Active 401.9 [facility]ELY [facility] Insomnia * (ICD-9-CM 780.52) Active 780.52 [facility]ON TH[facility]AS [facility] Joint Pain Forearm Active 719.43 MEGANLIYAHLEONIDAS S [facility]ION [facility] Lower Leg Injury NOS Active 959.7 MEGANLIYAHA N S [facility] Morbid Obesity * (ICD-9-CM 278.01) Active 278.01 DARION [facility] Obesity * (ICD-9-CM 278.00) Active 278.00 GALILEA WEST [facility] Onychomycosis (SNOMED CT 811742101) Active 110.1 [facility] Osteoarthosis Shoulder Active 715.91 MEGANVERNELL S D[facility]ION [facility] Pain in joint involving shoulder region (ICD-9-CM 719.41) Active 71 9.41 [facility] Routine Gynecological examination Active V72.31 [facility] Sciatica * (ICD-9-CM 724.3) Active 724.3 SIMON CAMP [facility] Unspecified chest pain * (ICD-9-CM 786.50) Active 786.50 MARK VIVAS [facility] Unsteady when walking Active 36032166 [facility] Urinary Incontinence * (ICD-9-CM 788.30) Active 788.30 JJ GAYTAN [facility] MUSCLE SPASM Inactive 728.85 May 29, 2007 Sep 02 Entered By: TONY BENÍTEZ Comment: shoulders TONY BENÍTEZ [facility] Radiology Reports: +/- 30 days of the encounter No Data Provided for This Section Pathology Reports: +/- 30 days of the encounter No Data Provided for This Section Encounter Notes: All associated encounter notes This section contains the clinical notes associated to the Encounter. Date/Time Encounter Note(s) Provider Source Jun 03, 2019 09:55 AM MENTAL HEALTH TELEPHONE ENCO UNTER NOTE: LOCAL TITLE: [place] PHONE [facility] STANDARD TITLE: MENTAL HEALTH TELEPHONE ENCOUNTER NOTE DATE OF NOTE: JUN 03, 2019@09:55 ENTRY DATE: JUN 03, 2019@09:55:29 AUTHOR: EMBER JARVIS EXP COSIGNER: URGENCY: STATUS: COMPLETED Called per her request. stated she is out of [place] as of today and is requesting refill be overnighted to her. Educated on the process of medication refills now that her MH Provider is no longer at the [place]. Discussed need to schedule with new Provider and that I would again alert [facility] team to call and assist [place] with scheduling. Alerted two Providers of 's need for medication refill and informed [place] that this loan underwriter will check on status of order as needed throughout the day. thanks this loan underwriter for assisting her. [place] denied preference of new Provider. She continues to request GALLO AMAYA. /susie/ EMBER JARVIS R.N. Signed: 06/03/2019 10:02 EMBER JARVIS [facility]
--- OUTSIDE RECORDS SUMMARY | 2020-03-28 08:23 | XMS REPORT ---
Author Author Department of [facility] Organization Department of [facility] Affai Address [address] [place] [address] Phone Unavailable Care Team Providers Care Field Court Researcher Name Role Phone FLORINDASIMON PCP Unavailable Insurance [...] PART A Aug 25, 2011 PART A [id number] GADBERRY,CHARLANNE PATIENT MEDICARE (WNR) MEDICARE (M) PART B Aug 25, 2011 PART B [id number] GADBERRY,CHARLANNE PATIENT MEDICARE (WNR) MEDICARE (M) PART A Aug 25, 2011 PART A [id number] GADBERRY,CHARLANNE PATIENT MEDICARE (WNR) MEDICARE (M) PART B Aug 25, 2011 PART B [id number] GADBERRY,CHARLANNE PATIENT MEDICARE (WNR) MEDICARE (M) PART A Aug 25, 2011 PART A [id number] SANDRA MORELOS PATIENT MEDICARE (WNR) MEDICARE (M) PART B Aug 25, 2011 PART B [id number] SANDRA MORELOS PATIENT MEDICARE PART D (WNR) MEDICARE (M) PART D Sep 25, 2012 PART D [id number] SANDRA WHITMAN PATIENT Selected Encounter This section includes the information on record at [place] for the Encounter. Date/Time Encounter Type Encounter Description Reason Provider Source Jun 03, 2019 09:03 AM Outpatient Encounter ADMIN PAT ACTIVTIES (GORDON NONCT) EMBER JARVIS [facility] IHE Encounter Template Text not used by [place] Assessments - Encounter Diagnoses No Data Provided for This Section Plan of Treatment: Future Appointments (+ 6 months) and Future Tests (+/- 45 day s) The Plan of Treatment section includes future care activities for the patient fr om all [place] treatment facilities. This section includes future appointments and fu ture orders which are active, pending or scheduled. Future Appointments This section includes appointments that were scheduled t o occur 6 months from the date of the Encounter, up to a maximum of 20 appointme nts. The data comes from all [place] treatment facilities. Appointment Date/Time Appointment Type Appointment Facili ty Name Aug 06, 2019 02:00 PM AMBULATORY - PSYCHIATRY DARION MARTINEZ [facility] Aug 06, 2019 02:01 PM AMBULATORY [facility]ATRY [facility] Oct 09, 2019 09:30 AM AMBULATORY - NONE [facility] Nov 06, 2019 02:00 PM AMBULATORY - PSYCHIATRY DARION MARTINEZ [facility] Nov 06, 2019 02:01 PM AMBULATORY - [facility]ATRY [facility] Nov 27, 2019 11:00 AM AMBULATORY - MEDICINE [facility]INDO [facility] Surgical Procedures: All associated to the encounter No Data Provided for This Section Lab Results: +/- 30 days of the encounter This section includes the Chemistry and Hematology Lab R esults on record with [place] for the patient. Radiology Reports and Pathology Report s are provided separately, in subsequent sections. Lab Results This section contains the Chemistry/Hematology Results douglas t were resulted 30 days before or 30 days after the date of the Encounter. Date/Time Source Result Type Result - Unit Interpretation Reference Range Comment May 30, 2019 11:20 AM DARION MARTINEZ [facility] COMPREHENSIVE METABOLI C PANEL Specimen Type: PLASMA [...] May 30, 2019 11:20 AM DARION MARTINEZ [facility] LITHIUM Specimen Type: SERUM Comment: ~For Test: LITHIUM ~Dose is expected to be at &TROUGH level. LITHIUM 0.7 mmol/L 0.6-1.2 May 30, 2019 11:20 AM JOSIE [facility] HEMOGLOBIN A1C Specimen Type: BLOOD No [...] and tobacco- related health factors from the [place] facility where the Encounter took place. Current Smoking Status This section includes the most current smoking, or tobacco -related health factor, from the [place] facility where the Encounter took place. Date/Time Current Smoking Status Comment Facility Dec 28, 2015 10:28 AM CURRENT NON-SMOKER [facility] Tobacco Use History This section includes a history of the smoking, or tobacco -related health factors, that were collected on or before the date of the Encoun ter. The data comes from the [place] facility where the Encounter took place. Date/Time Smoking Status/Tobacco Use Comment [facility] it Dec 28, 2015 10:28 AM LIFETIME NON-TOBACCO USER DARION MARTINEZ [facility] May 14, 2015 10:33 AM CURRENT NON-SMOKER [facility] May 14, 2015 10:33 AM LIFETIME NON-TOBACCO USER DARION Jose Roberto [facility] Dec 08, 2014 10:25 AM CURRENT NON-SMOKER DARION MARTINEZ [facility] Dec 08, 2014 10:25 AM LIFETIME NON-TOBACCO USER DARION MARTINEZ [facility] Oct 20, 2014 09:33 AM CURRENT NON-SMOKER DARION MARTINEZ [facility] Oct 20, 2014 09:33 AM LIFETIME NON-TOBACCO USER DARION MARTINEZ [facility] Jul 22, 2014 09:41 AM CURRENT NON-SMOKER DARION MARTINEZ [facility] Jul 22, 2014 09:41 AM LIFETIME NON-TOBACCO USER DARION MARTINEZ [facility] February 04, 2014 10:04 AM NON-TOBACCO USER DARION MARTINEZ [facility] Dec 16, 2013 11:26 AM CURRENT NON-SMOKER DARION MARTINEZ [facility] Dec 16, 2013 11:26 AM LIFETIME NON-TOBACCO USER DARION MARTINEZ [facility] Jan 14, 2013 01:14 PM CURRENT NON-SMOKER DARION MARTINEZ [facility] Jan 14, 2013 01:14 PM LIFETIME NON-TOBACCO USER DARION MARTINEZ [facility] February 14, 2012 09:57 AM CURRENT NON-SMOKER DARION MARTINEZ [facility] February 14, 2012 09:57 AM LIFETIME NON-TOBACCO USER DARION MARTINEZ [facility] Mar 14, 2011 01:13 PM CURRENT NON-SMOKER DARION MARTINEZ [facility] Mar 14, 2011 01:13 PM LIFETIME NON-TOBACCO USER DARION MARTINEZ [facility] Apr 15, 2010 09:39 AM CURRENT NON-SMOKER DARION MARTINEZ [facility] Apr 15, 2010 09:39 AM LIFETIME NON-TOBACCO USER DARION MARTINEZ [facility] Mar 09, 2010 02:30 PM CURRENT NON-SMOKER DARION MARTINEZ [facility] Mar 09, 2010 02:30 PM LIFETIME NON-TOBACCO USER DRAION MARTINEZ [facility] Nov 06, 2009 10:50 AM CURRENT NON-SMOKER DARION MARTINEZ [facility] Nov 06, 2009 10:50 AM LIFETIME NON-TOBACCO USER DARION MARTINEZ [facility] Advance Directives: All historical and current Section Date Range: From patient's date of to the date document was create d. This section includes ALL of a patient's completed or amen ded [place] Advance and Rescinded Directives. The entries below indicate that a direc tive exists for the patient, but an actual copy is not included with this docume nt. The data comes from all [place] facilities. Date Advance Directives Provider Source Sep 15, 2009 ADVANCE DIRECTIVE DISCUSSION JADE VARMA [facility] Jul 21, 2006 ADVANCE DIRECTIVE [facility] Jul 12, 2006 ADVANCE DIRECTIVE DISCUSSION [facility] Allergies and Adverse Reactions (ADRs): All historical and current Section Date Range: From patient's date of to the date document was create d. This section includes Allergies and Adverse Reactions (ADR s) on record with [place] for the patient. The data comes from a ll [place] treatment facilities. It does not list Allergies/ADRs that were removed or entered in error. Some allergies/ADRs may be reported in t he Immunization section. Allergen Event Date Event Type Reaction(s) Severity Source ENALAPRIL Aug 22, 2017 Propensity to adverse reactions to drug (diso rder) [facility] ENALAPRIL May 04, 2007 Propensity to adverse reactions to drug ( disorder) Cough [facility] LEVAQU[place] Aug 22, 2017 Propensity to adverse reactions to drug (diso rder) [facility] LEVAQUIN Oct 08, 2015 Propensity to adverse reactions to drug (disorder) Eruption [facility] 15 LISINOPRIL Aug 22, 2017 Propensity to adverse reactions to drug (diso rder) [facility] LISINOPRIL Jan 16, 2007 Propensity to adverse reactions to drug (disorder) Cough [facility] NIAC[place] Aug 22, 2017 Propensity to adverse reactions to drug (diso rder) [facility] NIACIN Oct 23, 2008 Propensity to adverse reactions to drug ( disorder) Eruption [facility] 15 Medications: VA dispensed (-15 months) and Non-VA Documented (Obtained Outside A) Section Date Range: 1) prescriptions processed by a VA pharmacy in the last 15 m [facility], and 2) all medications recorded in the [place] medical record as "non-VA medic ations". Pharmacy terms refer to [place] pharmacy's work on prescriptions. [place] patient s are advised to take their medications as instructed by their health care team. The data comes from all [place] treatment facilities. Glossary of Pharmacy Terms:Active = A prescription that can be filled at the local [place] pharmacy.Active: On Hold = An active prescription that will not be filled until pharmacy resolves the issue.Active: Susp = An active prescription that is not scheduled to be filled yet.Clinic Order = A medication received during a visit to a [place] clinic or emergency department (currently not available).Discontinued [...] may be a prescription from either the [place] or other providers that was filled outside the [place]. Or, it may be an over the [...] BLOOD GLUCOSE TESTING 50 Jun 06, 2020 [id number] February 21, 2020 SIMON NEELY AMLODIPINE BESYLATE 10MG TAB Active TAKE ONE TABLET BY MOUTH EVERY MORNING 90 January 23, 2021 [id number] Jan 23, 2020 SIMON NEELY AMLODIPINE BESYLATE 10MG TAB Discontinued TAKE ONE TA BLET BY MOUTH EVERY MORNING 90 Nov 27, 2019 [id number] Oct 21, 2019 SIMON NEELY ATORVASTATIN CA 20MG TAB Active TAKE ONE-HALF T ABLET BY MOUTH AT BEDTIME FOR CHOLESTEROL - REPORT ANY UNEXPLAINED MUSCLE PAIN/WEAKNESS TO YOUR PROVIDER TAKE IN PLACE OF CRESTOR, VA DOESNT SUPPLY CRESTOR, FOR CHOLESTEROL - REPORT ANY UNEXPLAINED MUSCLE PAIN/WEAKNESS TO YOUR PROVIDER TAKE IN PLACE OF CRESTOR, [facility] DOESNT SUPPLY CRESTOR, 45 January 23, 2021 [id number] Jan 23, 2020 HARRISON NEELY ATORVASTATIN CA 20MG TAB Discontinued TAKE ONE-HALF T ABLET BY MOUTH AT BEDTIME FOR CHOLESTEROL - REPORT ANY UNEXPLAINED MUSCLE PAIN/WEAKNESS TO YOUR PROVIDER TAKE IN PLACE OF CRESTOR, [place] DOESNT SUPPLY CRESTOR, FOR CHOLESTEROL - REPORT ANY UNEXPLAINED MUSCLE PAIN/WEAKNESS TO YOUR PROVIDER TAKE IN PLACE OF CRESTOR, [facility] DOESNT SUPPLY CRESTOR, 45 Dec 07, 2019 [id number] Mar 01, 2019 HARRISON NEELY BRIEF,SUPER PLUS ABSORB WITH BARRIERS UNDERWEAR X-LARGE ATTE NDS Active USE DIRECTED DIRECTED FOR INCONTINENCE 56 Nov 04, 2020 [id number] Nov 09, 2019 SIMON NEELY BRIEF,SUPER PLUS ABSORB WITH BARRIERS UNDERWEAR X-LARGE ATTE NDS Discontinued USE DIRECTED DIRECTED FOR INCONTINENCE 56 Apr 01, 2020 [id number] Aug 06, 2019 SIMON NEELY GLIPIZIDE 5MG TAB Active TAKE ONE TABLET BY M OUTH EVERY DAY BEFORE BREAKFAST FOR DIABETES. TAKE 30 MINUTES BEFORE EATING. 90 Apr 22, 2020 [id number] February 12, 2020 SIMON NEELY GLIPIZIDE 5MG TAB Discontinued TAKE ONE TABLET BY M OUTH EVERY DAY BEFORE BREAKFAST FOR DIABETES. TAKE 30 MINUTES BEFORE EATING. 90 Feb 242019 [id number] February 12, 2020 SIMON NELEY GLIPIZIDE 5MG TAB Discontinued TAKE ONE TABLET BY M OUTH EVERY DAY BEFORE BREAKFAST FOR DIABETES. TAKE 30 MINUTES BEFORE EATING. 90 January [id number] Nov 24, 2019 SIMON NEELY GLIPIZIDE 5MG TAB Discontinued TAKE ONE TABLET BY M OUTH EVERY DAY BEFORE BREAKFAST FOR DIABETES. TAKE 30 MINUTES BEFORE EATING. 90 Nov [id number] Sep 05, 2019 SIMON NEELY LANCET,SOFTCLIX Active USE LANCET BIW FOR TESTING BL OOD GLUCOSE DIRECTED 100 Jun 06, 2020 [id number] Jun 07, 2019 SIMON NEELY C LITHIUM CARBONATE 300MG CAP Active TAKE 1 CAPSU LE BY MOUTH EVERY MORNING AND TAKE 3 CAPSULES BY MOUTH AT BEDTIME FOR MOOD. MUST MAKE AN APPT OR WILL TAPER AND DISCONTINUE MEDICATIONS 120 February 12, 2021 [id number] Mar 04, 2020 ELOISE HUYNH [facility] LITHIUM CARBONATE 300MG CAP Discontinued TAKE 1 CAPSU LE BY MOUTH EVERY MORNING AND TAKE 3 CAPSULES BY MOUTH AT BEDTIME FOR MOOD. MUST MAKE AN APPT OR WILL TAPER AND DISCONTINUE MEDICATIONS 120 Aug 06, 2020 [id number] Dec 16, 2019 KANG ZAYAS [facility] LITHIUM CARBONATE 300MG CAP Discontinued TAKE 1 CAPSU LE BY MOUTH EVERY MORNING AND TAKE 3 CAPSULES BY MOUTH AT BEDTIME FOR MOOD. MUST MAKE AN APPT OR WILL TAPER AND DISCONTINUE MEDICATIONS 120 Jun 10, 2020 [id number] Jul 19, 2019 KIMBERLY TARIQ [facility] LITHIUM CARBONATE 300MG CAP Discontinued TAKE 1 CAPSU LE BY MOUTH EVERY MORNING AND TAKE 3 CAPSULES BY MOUTH AT BEDTIME FOR MOOD. MUST MAKE AN APPT OR WILL TAPER AND DISCONTINUE MEDICATIONS 120 Jul 03, 2019 [id number] Jun 03, 2019 [facility]IQ [facility] LITHIUM CARBONATE 300MG CAP Discontinued TAKE 1 CAPSU LE BY MOUTH EVERY MORNING AND TAKE 3 CAPSULES BY MOUTH AT BEDTIME FOR MOOD. MUST MAKE AN APPT OR WILL TAPER AND DISCONTINUE MEDICATIONS 120 Mar 23, 2019 [id number] February 21, 2019 KIMBERLY TARIQ [facility] LITHIUM CARBONATE 300MG CAP Discontinued TAKE 1 CAPSU LE BY MOUTH EVERY MORNING AND TAKE 3 CAPSULES BY MOUTH AT BEDTIME FOR MOOD. 120 Dec 18, 2019 [id number] Jan 11, 2019 KIMBERLY BANG [facility] LITHIUM CARBONATE 300MG TAB,SA Discontinued TAKE ONE [...] SPLIT, OR CHEW. 234 May 31, 2019 [id number] Apr 01, 2019 KIMBERLY BANG [facility] NO KNOWN NON-VA MEDS MISCELLANEOUS Non-VA Non-VA Documented by: MICHELLE BARTHOLOMEW Docume nted at: [facility] NO KNOWN NON-VA MEDS MISCELLANEOUS Non-VA Non-VA Documented by: GALILEA BENÍTEZ Docume nted at: [facility] OXYCODONE HCL 5MG TAB No n-VA TAKE ONE TABLET BY MOUTH EVERY 6 HOURS NEEDED Non-VA Docume nted by: SIMON NEELY Docume nted at: [facility] QUETIAPINE FUMARATE 100MG TAB Active TAKE ONE-HALF TABL ET BY MOUTH AT BEDTIME 15 Mar 25, 2021 [id number] Mar 24, 2020 ELOISE HUYNH [facility] TRAMADOL HCL 50MG TAB No n-VA TAKE ONE TABLET BY MOUTH EVERY 6 HOURS NEEDED Non-VA Docume nted by: SIMON NEELY Docume nted at: [facility] TRAZODONE HCL 100MG TAB Discontinued TAKE FOUR TABLET S BY MOUTH AT BEDTIME FOR MOOD OR SLEEP. 120 February 12, 2021 [id number] Mar 01, 2020 [facility]ISE [facility]NH [facility] TRAZODONE HCL 100MG TAB Discontinued TAKE FOUR TABLET S BY MOUTH AT BEDTIME FOR MOOD OR SLEEP. 120 Aug 06, 2020 [id number] February 10, 2020 KANG ZAYAS [facility] TRAZODONE HCL 100MG TAB Discontinued TAKE FOUR TABLET S BY MOUTH AT BEDTIME FOR MOOD OR SLEEP. 120 Jun 03, 2020 [id number] Jul 29, 2019 KIMBERLY BANG [facility] TRAZODONE HCL 100MG TAB Discontinued TAKE FOUR TABLET S BY MOUTH AT BEDTIME FOR MOOD OR SLEEP. 120 February 05, 2020 [id number] May 06, 2019 KIMBERLY BANG [facility] TRAZODONE HCL 100MG TAB Discontinued TAKE FOUR TABLET S BY MOUTH AT BEDTIME FOR MOOD OR SLEEP. 120 Sep 14, 2019 [id number] Jan 07, 2019 KIMBERLY BANG [facility] TROSPIUM CL 20MG TAB Active TAKE ONE TABLET BY MOUTH TWO TIMES A DAY FOR BLADDER. TAKE ON AN EMPTY STOMACH OR AT LEAST ONE HOUR BEFORE FOOD. PER DR. BUTLER 180 January 23, 2021 [id number] Mar 16, 2020 SIMON NEELY [facility] TROSPIUM CL 20MG TAB Discontinued TAKE ONE TABLET BY MOUTH TWO TIMES A DAY FOR BLADDER. TAKE ON AN EMPTY STOMACH OR AT LEAST ONE HOUR BEFORE FOOD. PER DR. BUTLER 180 Apr 01, 2020 [id number] Dec 17, 2019 SIMON NEELY [facility] VENLAFAXINE HCL 75MG 24HR CAP,SA Active TAKE 3 CAPSULES BY MOUTH ONCE A DAY FOR MOOD. TAKE WITH FOOD. 90 February 12, 2021 [id number] Mar 04, 2020 Arlette [facility]NH [facility] VENLAFAXINE HCL 75MG 24HR CAP,SA Discontinued TAKE 3 CAPSULES BY MOUTH ONCE A DAY FOR MOOD. TAKE WITH FOOD. 90 Aug 06, 2020 [id number] Jan 05 0 KANG ZAYAS [facility] VENLAFAXINE HCL 75MG 24HR CAP,SA Discontinued TAKE 3 CAPSULES BY MOUTH ONCE A DAY FOR MOOD. TAKE WITH FOOD. 90 Aug 28, 2019 [id number] Aug 01 9 KIMBERLY TARIQ [facility] VENLAFAXINE HCL 75MG 24HR CAP,SA Discontinued TAKE 3 CAPSULES BY MOUTH ONCE A DAY FOR MOOD. TAKE WITH FOOD. 90 February 05, 2020 [id number] Jul 01 9 KIMBERLY TARIQ [facility] Problems (Conditions): All historical and current Section Date Range: From patient's date of to the date document was create d. This section includes a list of Problems (Conditions) know n to [place] for the patient. It includes both active and inacti ve problems (conditions). The data comes from all [place] treatment facilities. Problem Status Problem Code Date of Onset Date of Resolution Comm ent(s) Provider Source Abnormality of Gait (ICD-9-CM 781.2) Active 781.2 GALILEA BENÍTEZ [facility] Achilles bursitis or tendinitis (ICD-9-CM 726.71) Active 726.71 RILEY GALVAN [facility] Acquired right hallux valgus Active [id number] RILEY GALVAN [facility] Ankle ulcer due to type 2 diabetes mellitus ([place] [address] 493462259) Active 39818079830424 SIMON NEELY [facility] Bereavement (SNOMED CT 63030642) Active V62.89 [facility]ON [facility]ELY [facility] Bilateral plantar fasciitis (SNOMED CT [id number]) Ac tive [id number] RILEY GALVAN [facility] BIPOLAR AFFECTIVE NOS Active 296.7 DEMETRA UREÑA [facility] Bipolar disorder (SNOMED CT 64328932) Active 46412417 KIMBERLY BANG [facility] Bunion Active 727.1 MONICA MADDOX [facility] Carpal Tunnel Syndrome * (ICD-9-CM 354.0) Active 354.0 Oct 16, 2002 Entered By: GALILEA BENÍTEZ Comment: rt GALILEA BENÍTEZ [facility] Cerebral Palsy NEC (ICD-9-CM 343.8) Active 343.8 SEPIDEH [facility] Depression * (ICD-9-CM 311./300.4) Active 311. SIMON NEELY [facility] Derangement of meniscus Active 717.5 J an 2001 Entered By: DEMETRA UREÑA Comment: left knee, arthroscopy 11/23 DEMETRA UREÑA [facility] Diabetes mellitus (SNOMED CT 83104303) Active 38125058 SIMON NEELY [facility] Difficulty balancing Active 222966333 HARRISON NEELY [facility] Elevated Liver Function Tests (ICD-9-CM 794.8) Active 794.8 SIMON NEELY [facility] Enthesopathy of ankle and tarsus (ICD-9-CM 726.70/726.79) Active 72 6.70 BECCA JONES [facility] Flat foot Active 734. MONICA MADDOX [facility] GERD * (ICD-9-CM 530.81) Active 530.81 SIMON NEELY [facility] Hip Pain (ICD-9-CM 719.45) Active 719.45 SIMON YA [facility] Hyperkeratosis Active 701.1 MONICA [facility]ADDOX [facility] Hyperlipidemia * (ICD-9-CM 272.4) Active 272.4 SIMON NEELY [facility] Hypertension * (ICD-9-CM 401.9) Active 401.9 GALILEA BENÍTEZ [facility] Hypertension * (ICD-9-CM 401.9) Active 401.9 SIMON NEELY [facility] Insomnia * (ICD-9-CM 780.52) Active 780.52 SIMON THOMAS [facility] Joint Pain Forearm Active 719.43 LEONIDAS GUZMAN S DARION [facility] Lower Leg Injury NOS Active 959.7 [facility] Morbid Obesity * (ICD-9-CM 278.01) Active 278.01 CARLOSDARION [facility]ERS [facility] [facility] Obesity * (ICD-9-CM 278.00) Active 278.00 GALILEA WEST [facility] Onychomycosis (SNOMED CT 263361916) Active 110.1 [facility] Osteoarthosis Shoulder Active 715.91 MEGANVERNELL [facility] Pain in joint involving shoulder region (ICD-9-CM 719.41) Active 71 9.41 SIMON NEELY [facility] Routine Gynecological examination Active V72.31 [facility] Sciatica * (ICD-9-CM 724.3) Active 724.3 SIMON CAMP [facility] Unspecified chest pain * (ICD-9-CM 786.50) Active 786.50 MARK VIVAS [facility] Unsteady when walking Active 46540194 HARRISON NEELY [facility] Urinary Incontinence * (ICD-9-CM 788.30) Active 788.30 JJ GAYTAN [facility] MUSCLE SPASM Inactive 728.85 May 29, 2007 Sep 02 Entered By: TONY BENÍTEZ Comment: shoulders TONY BENÍTEZ [facility] Radiology Reports: +/- 30 days of the encounter No Data Provided for This Section Pathology Reports: +/- 30 days of the encounter No Data Provided for This Section Encounter Notes: All associated encounter notes This section contains the clinical notes associated to the Encounter. Date/Time Encounter Note(s) Provider Source Jun 03, 2019 09:03 AM ADMINISTRATIVE NOTE: LOCAL TITLE: [place]IVE NOTE (Red [place]) STANDARD TITLE: ADMINISTRATIVE NOTE DATE OF NOTE: JUN 03, 2019@09:03 ENTRY DATE: JUN 03, 2019@09:03:15 AUTHOR: EMBER JARVIS COSIGNER: URGENCY: STATUS: COMPLETED [place] (BP,O) Has ADDENDA Willow Wood left VM stating she is out of [place] as of today. She is requesting a refill be overnighted to her. /susie/ EMBER JARVIS R.N. Signed: 06/03/2019 09:05 Receipt Acknowledged By: 06/03/2019 11:30 /susie/ LEONIDAS PIERRE M.D. STAFF PSYCHIATRIST 06/05/2019 09:10 /susie/ [facility], APRN,OMID 06/05/2019 ADDENDUM STATUS: COMPLETED Meds renewed after labs reviewed,scheduled for TM from [facility] on 08/06. /susie/ VAL COLEMAN APRN,EDU,BC Signed: 06/05/2019 09:11 EMBER JARVIS [facility]
--- OUTSIDE RECORDS SUMMARY | 2020-03-28 08:23 | XMS REPORT | Encounter Summary ---
Author Author Department of [facility] Organization Department of [facility] Affai rs Address [address] [place] [address] Phone Unavailable Care Team Providers Care Credit Risk Management Director Name Role Phone FLORINDA SIMON PCP Unavailable [...] PART A Aug 25, 2011 PART A [id number] GADBERRY,CHARLANNE PATIENT MEDICARE (WNR) MEDICARE (M) PART B Aug 25, 2011 PART B [id number] GADBERRY,CHARLANNE PATIENT MEDICARE (WNR) MEDICARE (M) PART A Aug 25, 2011 PART A [id number] GADBERRY,CHARLANNE PATIENT MEDICARE (WNR) MEDICARE (M) PART B Aug 25, 2011 PART B [id number] GADBERRY,CHARLANNE PATIENT MEDICARE (WNR) MEDICARE (M) PART A Aug 25, 2011 PART A [id number] [phone] SANDRA MORELOS PATIENT MEDICARE (WNR) MEDICARE (M) PART B Aug 25, 2011 PART B [id number] [phone] SANDRA MORELOS PATIENT MEDICARE PART D (WNR) MEDICARE (M) PART D Sep 25, 2012 PART D [id number] SANDRA WHITMAN PATIENT Selected Encounter This section includes the information on record at [place] for the Encounter. Date/Time Encounter Type Encounter Description Reason Provider Source Jun 04, 2019 02:14 PM Outpatient Encounter TELEPHONE MH ICD-1 0-CM F31.32 Bipolar disorder, current episode depressed, moderate with Provider Comments: Bipolar disorder ([facility] [id number]) EMBER JARVIS [facility] IHE Encounter Template Text not used by [place] Assessments - Encounter Diagnoses This section includes the primary and secondary diag noses documented for the Encounter. Date/Time Primary/Secondary Diagnosis Diagnosis Name Provider Source Jun 04, 2019 02:14 PM PRIMARY Bipolar disorder, current episode depressed, moderate EMBER JARVIS [facility] Jun 04, 2019 02:14 PM SECONDARY Other specified counseling EMBER PATEL [facility] Plan of Treatment: Future Appointments (+ 6 months) and Future Tests (+/- 45 day s) The Plan of Treatment section includes future care activities for the patient fr om all [place] treatment facilities. This section includes future appointments and fu ture orders which are active, pending or scheduled. Future Appointments This section includes appointments that were scheduled t o occur 6 months from the date of the Encounter, up to a maximum of 20 appointme nts. The data comes from all [place] treatment facilities. Appointment Date/Time Appointment Type Appointment Facili ty Name Aug 06, 2019 02:00 PM AMBULATORY - PSYCHIATRY DARION Cid JUAN [facility] Aug 06, 2019 02:01 PM AMBULATORY - PSYCHIATRY [facility] Oct 09, 2019 09:30 AM AMBULATORY - NONE [facility] Nov 06, 2019 02:00 PM AMBULATORY - PSYCHIATRY DARION Cid [facility] Nov 06, 2019 02:01 PM AMBULATORY - PSYCHIATRY GALINDO [facility] Nov 27, 2019 11:00 AM AMBULATORY - MEDICINE [facility] Surgical Procedures: All associated to the encounter No Data Provided for This Section Lab Results: +/- 30 days of the encounter This section includes the Chemistry and Hematology Lab R esults on record with [place] for the patient. Radiology Reports and Pathology Report s are provided separately, in subsequent sections. Lab Results This section contains the Chemistry/Hematology Results douglas t were resulted 30 days before or 30 days after the date of the Encounter. Date/Time Source Result Type Result - Unit Interpretation Reference Range Comment May 30, 2019 11:20 AM DARION MARTINEZ [facility] COMPREHENSIVE METABOLI C PANEL Specimen Type: [...] May 30, 2019 11:20 AM [facility] LITHIUM Specimen Type: SERUM Comment: ~For [...] and tobacco- related health factors from the [place] facility where the Encounter took place. Current Smoking Status This section includes the most current smoking, or tobacco -related health factor, from the [place] facility where the Encounter took place. Date/Time Current Smoking Status Comment Facility Dec 28, 2015 10:28 AM CURRENT NON-SMOKER DARION MARTINEZ [facility] Tobacco Use History This section includes a history of the smoking, or tobacco -related health factors, that were collected on or before the date of the Encoun ter. The data comes from the [place] facility where the Encounter took place. Date/Time Smoking Status/Tobacco Use Comment Facil jdy Dec 28, 2015 10:28 AM LIFETIME NON-TOBACCO USER DARION MARTINEZ [facility] May 14, 2015 10:33 AM CURRENT NON-SMOKER DARION Cid [facility] May 14, 2015 10:33 AM LIFETIME NON-TOBACCO USER DARION Jose Roberto [facility] Dec 08, 2014 10:25 AM CURRENT NON-SMOKER DARION Jose Roberto [facility] Dec 08, 2014 10:25 AM LIFETIME NON-TOBACCO USER DARION Jose Roebrto [facility] Oct 20, 2014 09:33 AM CURRENT NON-SMOKER DARION Jose Roberto [facility] Oct 20, 2014 09:33 AM LIFETIME NON-TOBACCO USER DARION Cid [facility] Jul 22, 2014 09:41 AM CURRENT NON-SMOKER [place] Jose Roberto [facility] Jul 22, 2014 09:41 AM LIFETIME NON-TOBACCO USER DARION Jose Roberto [facility] February 04, 2014 10:04 AM NON-TOBACCO USER DARION MARTINEZ [facility] Dec 16, 2013 11:26 AM CURRENT [facility]SMOKER [facility] Dec 16, 2013 11:26 AM LIFETIME NON-TOBACCO USER DARION Cid [facility] Jan 14, 2013 01:14 PM CURRENT NON-SMOKER DARION Cid [facility] Jan 14, 2013 01:14 PM LIFETIME NON-TOBACCO USER DARION Cid [facility] February 14, 2012 09:57 AM CURRENT NON-SMOKER DARION Jose Roberto [facility] February 14, 2012 09:57 AM LIFETIME NON-TOBACCO USER DARION Cid [facility] Mar 14, 2011 01:13 PM CURRENT NON-SMOKER [facility] Mar 14, 2011 01:13 PM LIFETIME NON-TOBACCO USER DARION Cid [facility] Apr 15, 2010 09:39 AM CURRENT NON-SMOKER DARION Cid [facility] Apr 15, 2010 09:39 AM LIFETIME NON-TOBACCO USER DARION Cid [facility] Mar 09, 2010 02:30 PM CURRENT NON-SMOKER [facility] Mar 09, 2010 02:30 PM LIFETIME NON-TOBACCO USER DARION Cid [facility] Nov 06, 2009 10:50 AM CURRENT NON-SMOKER [facility] Nov 06, 2009 10:50 AM LIFETIME NON-TOBACCO USER DARION MARTINEZ [facility] Advance Directives: All historical and current Section Date Range: From patient's date of to the date document was create d. This section includes ALL of a patient's completed or amen ded [place] Advance and Rescinded Directives. The entries below indicate that a direc tive exists for the patient, but an actual copy is not included with this docume nt. The data comes from all [place] facilities. Date Advance Directives Provider Source Sep 15, 2009 ADVANCE DIRECTIVE DISCUSSION JADE [facility] Jul 21, 2006 ADVANCE DIRECTIVE [facility] Jul 12, 2006 ADVANCE DIRECTIVE DISCUSSION SAV PAULSON [facility] Allergies and Adverse Reactions (ADRs): All historical and current Section Date Range: From patient's date of to the date document was create d. This section includes Allergies and Adverse Reactions (ADR s) on record with [facility] for the patient. The data comes from a ll [place] treatment facilities. It does not list Allergies/ADRs that were removed or entered in error. Some allergies/ADRs may be reported in t he Immunization section. Allergen Event Date Event Type Reaction(s) Severity Source ENALAPRIL Aug 22, 2017 Propensity to adverse reactions to drug (diso rder) [facility] ENALAPRIL May 04, 2007 Propensity to adverse reactions to drug ( disorder) Cough [facility] LEVAQUIN Aug 22, 2017 Propensity to adverse reactions to drug (diso rder) [facility] Oct 08, 2015 Propensity to adverse reactions to drug (disorder) Eruption [facility] 15 LISINOPRIL Aug 22, 2017 Propensity to adverse reactions to drug (diso rder) [facility] LISINOPRIL Jan 16, 2007 Propensity to adverse reactions to drug (disorder) Cough [facility] NIACIN Aug 22, 2017 Propensity to adverse reactions to drug (diso rder) [facility] NIACIN Oct 23, 2008 Propensity to adverse reactions to drug ( disorder) Eruption [facility] 15 Medications: VA dispensed (-15 months) and Non-VA Documented (Obtained Outside A) Section Date Range: 1) prescriptions processed by a [place] pharmacy in the last 15 m [facility], and 2) all medications recorded in the [place] medical record as "non-VA medic ations". Pharmacy terms refer to VA pharmacy's work on prescriptions. VA patient s are advised to take their medications as instructed by their health care team. The data comes from all [place] treatment facilities. Glossary of Pharmacy Terms:Active = A prescription that can be filled at the local VA pharmacy.Active: On Hold = An active prescription that will not be filled until pharmacy resolves the issue.Active: Susp = An active prescription that is not scheduled to be filled yet.Clinic Order = A medication received during a visit to a [place] clinic or emergency department (currently not available).Discontinued [...] other providers that was filled outside the [place]. Or, it may be an over the [...] BLOOD GLUCOSE TESTING 50 Jun 06, 2020 [id number] February 21, 2020 SIMON NEELY AMLODIPINE BESYLATE 10MG TAB Active TAKE ONE TABLET BY MOUTH EVERY MORNING 90 January 23, 2021 [id number] Jan 23, 2020 SIMON NEELY AMLODIPINE BESYLATE 10MG TAB Discontinued TAKE ONE TA BLET BY MOUTH EVERY MORNING 90 Nov 27, 2019 [id number] Oct 21, 2019 SIMON NEELY ATORVASTATIN CA 20MG TAB Active TAKE ONE-HALF T ABLET BY MOUTH AT BEDTIME FOR CHOLESTEROL - REPORT ANY UNEXPLAINED MUSCLE PAIN/WEAKNESS TO YOUR PROVIDER TAKE IN PLACE OF CRESTOR, VA DOESNT SUPPLY CRESTOR, FOR CHOLESTEROL - REPORT ANY UNEXPLAINED MUSCLE PAIN/WEAKNESS TO YOUR PROVIDER TAKE IN PLACE OF CRESTOR, VA DOESNT SUPPLY CRESTOR, 45 January 23, 2021 [id number] Jan 23, 2020 HARRISON NEELY ATORVASTATIN CA 20MG TAB Discontinued TAKE ONE-HALF T ABLET BY MOUTH AT BEDTIME FOR CHOLESTEROL - REPORT ANY UNEXPLAINED MUSCLE PAIN/WEAKNESS TO YOUR PROVIDER TAKE IN PLACE OF CRESTOR, VA DOESNT SUPPLY CRESTOR, FOR CHOLESTEROL - REPORT ANY UNEXPLAINED MUSCLE PAIN/WEAKNESS TO YOUR PROVIDER TAKE IN PLACE OF CRESTOR, VA DOESNT SUPPLY CRESTOR, 45 Dec 07, 2019 [id number] Mar 01, 2019 HARRISON NEELY BRIEF,SUPER PLUS ABSORB WITH BARRIERS UNDERWEAR X-LARGE ATTE NDS Active USE DIRECTED DIRECTED FOR INCONTINENCE 56 Nov 04, 2020 [id number] Nov 09, 2019 SIMON NEELY BRIEF,SUPER PLUS ABSORB WITH BARRIERS UNDERWEAR X-LARGE ATTE NDS Discontinued USE DIRECTED DIRECTED FOR INCONTINENCE 56 Apr 01, 2020 [id number] Aug 06, 2019 SIMON NEELY GLIPIZIDE 5MG TAB Active TAKE ONE TABLET BY M OUTH EVERY DAY BEFORE BREAKFAST FOR DIABETES. TAKE 30 MINUTES BEFORE EATING. 90 Apr 22, 2020 [id number] February 12, 2020 SIMON NEELY GLIPIZIDE 5MG TAB Discontinued TAKE ONE TABLET BY M OUTH EVERY DAY BEFORE BREAKFAST FOR DIABETES. TAKE 30 MINUTES BEFORE EATING. 90 Feb 242019 [id number] February 12, 2020 SIMON NEELY GLIPIZIDE 5MG TAB Discontinued TAKE ONE TABLET BY M OUTH EVERY DAY BEFORE BREAKFAST FOR DIABETES. TAKE 30 MINUTES BEFORE EATING. 90 January [id number] Nov 24, 2019 SIMON NEELY GLIPIZIDE 5MG TAB Discontinued TAKE ONE TABLET BY M OUTH EVERY DAY BEFORE BREAKFAST FOR DIABETES. TAKE 30 MINUTES BEFORE EATING. 90 Nov [id number] Sep 05, 2019 SIMON NEELY LANCET,SOFTCLIX Active USE LANCET BIW FOR TESTING BL OOD GLUCOSE DIRECTED 100 Jun 06, 2020 [id number] Jun 07, 2019 SIMON NEELY C LITHIUM CARBONATE 300MG CAP Active TAKE 1 CAPSU LE BY MOUTH EVERY MORNING AND TAKE 3 CAPSULES BY MOUTH AT BEDTIME FOR MOOD. MUST MAKE AN APPT OR WILL TAPER AND DISCONTINUE MEDICATIONS 120 February 12, 2021 [id number] Mar 04, 2020 ELOISE HUYNH [facility] LITHIUM CARBONATE 300MG CAP Discontinued TAKE 1 CAPSU LE BY MOUTH EVERY MORNING AND TAKE 3 CAPSULES BY MOUTH AT BEDTIME FOR MOOD. MUST MAKE AN APPT OR WILL TAPER AND DISCONTINUE MEDICATIONS 120 Aug 06, 2020 [id number] Dec 16, 2019 KANG ZAYAS DARION Cid [facility] LITHIUM CARBONATE 300MG CAP Discontinued TAKE 1 CAPSU LE BY MOUTH EVERY MORNING AND TAKE 3 CAPSULES BY MOUTH AT BEDTIME FOR MOOD. MUST MAKE AN APPT OR WILL TAPER AND DISCONTINUE MEDICATIONS 120 Jun 10, 2020 [id number] Jul 19, 2019 KIMBERLY TARIQ [facility] LITHIUM CARBONATE 300MG CAP Discontinued TAKE 1 CAPSU LE BY MOUTH EVERY MORNING AND TAKE 3 CAPSULES BY MOUTH AT BEDTIME FOR MOOD. MUST MAKE AN APPT OR WILL TAPER AND DISCONTINUE MEDICATIONS 120 Jul 03, 2019 [id number] Jun 03, 2019 [facility] LITHIUM CARBONATE 300MG CAP Discontinued TAKE 1 CAPSU LE BY MOUTH EVERY MORNING AND TAKE 3 CAPSULES BY MOUTH AT BEDTIME FOR MOOD. MUST MAKE AN APPT OR WILL TAPER AND DISCONTINUE MEDICATIONS 120 Mar 23, 2019 [id number] February 21, 2019 KIMBERLY TARIQ [facility] LITHIUM CARBONATE 300MG CAP Discontinued TAKE 1 CAPSU LE BY MOUTH EVERY MORNING AND TAKE 3 CAPSULES BY MOUTH AT BEDTIME FOR MOOD. 120 Dec 18, 2019 [id number] Jan 11, 2019 [facility] LITHIUM CARBONATE 300MG TAB,SA Discontinued TAKE [...] SPLIT, OR CHEW. 234 May 31, 2019 [id number] Apr 01, 2019 [facility] NO KNOWN NON-VA MEDS MISCELLANEOUS Non-VA Non-VA Documented by: MICHELLE BARTHOLOMEW nted at: [facility] NO KNOWN NON-VA MEDS MISCELLANEOUS Non-VA Non-VA Documented by: GALILEA BENÍTEZ nted at: [facility] OXYCODONE HCL 5MG TAB No n-VA TAKE ONE TABLET BY MOUTH EVERY 6 HOURS NEEDED Non-VA Docume nted by: SIMON NEELY Docume nted at: JOSIE [facility] QUETIAPINE FUMARATE 100MG TAB Active TAKE ONE-HALF TABL ET BY MOUTH AT BEDTIME 15 Mar 25, 2021 [id number] Mar 24, 2020 JASSONHIELOISE [facility] TRAMADOL HCL 50MG TAB No n-VA TAKE ONE TABLET BY MOUTH EVERY 6 HOURS NEEDED Non-VA Docume nted by: SIMON NEELY Docume nted at: [facility] TRAZODONE HCL 100MG TAB Discontinued TAKE FOUR TABLET S BY MOUTH AT BEDTIME FOR MOOD OR SLEEP. 120 February 12, 2021 [id number] Mar 01, 2020 ELOISE HUYNH [facility] TRAZODONE HCL 100MG TAB Discontinued TAKE FOUR TABLET S BY MOUTH AT BEDTIME FOR MOOD OR SLEEP. 120 Aug 06, 2020 [id number] February 10, 2020 KANG ZAYAS [facility] TRAZODONE HCL 100MG TAB Discontinued TAKE FOUR TABLET S BY MOUTH AT BEDTIME FOR MOOD OR SLEEP. 120 Jun 03, 2020 [id number] Jul 29, 2019 KIMBERLY BANG [facility] TRAZODONE HCL 100MG TAB Discontinued TAKE FOUR TABLET S BY MOUTH AT BEDTIME FOR MOOD OR SLEEP. 120 February 05, 2020 [id number] May 06, 2019 KIMBERLY BANG [facility] TRAZODONE HCL 100MG TAB Discontinued TAKE FOUR TABLET S BY MOUTH AT BEDTIME FOR MOOD OR SLEEP. 120 Sep 14, 2019 [id number] Jan 07, 2019 KIMBERLY BANG [facility] TROSPIUM CL 20MG TAB Active TAKE ONE TABLET BY MOUTH TWO TIMES A DAY FOR BLADDER. TAKE ON AN EMPTY STOMACH OR AT LEAST ONE HOUR BEFORE FOOD. PER DR. BUTLER 180 January 23, 2021 [id number] Mar 16, 2020 SIMON NEELY [facility] TROSPIUM CL 20MG TAB Discontinued TAKE ONE TABLET BY MOUTH TWO TIMES A DAY FOR BLADDER. TAKE ON AN EMPTY STOMACH OR AT LEAST ONE HOUR BEFORE FOOD. PER DR. BUTLER 180 Apr 01, 2020 [id number] Dec 17, 2019 SIMON NEELY PARS ONS [facility] VENLAFAXINE HCL 75MG 24HR CAP,SA Active TAKE 3 CAPSULES BY MOUTH ONCE A DAY FOR MOOD. TAKE WITH FOOD. February 12, 2021 [id number] Mar 04, 2020 JASSONFANGArlette [facility] VENLAFAXINE HCL 75MG 24HR CAP,SA Discontinued TAKE 3 CAPSULES BY MOUTH ONCE A DAY FOR MOOD. TAKE WITH FOOD. Aug 06, 2020 [id number] Jan 05 0 KANG ZAYAS [facility] VENLAFAXINE HCL 75MG 24HR CAP,SA Discontinued TAKE 3 CAPSULES BY MOUTH ONCE A DAY FOR MOOD. TAKE WITH FOOD. Aug 28, 2019 [id number] Aug 01 9 KIMBERLY TARIQ [facility] VENLAFAXINE HCL 75MG 24HR CAP,SA Discontinued TAKE 3 CAPSULES BY MOUTH ONCE A DAY FOR MOOD. TAKE WITH FOOD. February 05, 2020 [id number] Jul 01 9 KIMBERLY TARIQ [facility] Problems (Conditions): All historical and current Section Date Range: From patient's date of to the date document was create d. This section includes a list of Problems (Conditions) know n to [place] for the patient. It includes both active and inacti ve problems (conditions). The data comes from all [place] treatment facilities. Problem Status Problem Code Date of Onset Date of Resolution Comm ent(s) Provider Source Abnormality of Gait (ICD-9-CM 781.2) Active 781.2 GALILEA BENÍTEZ [facility] Achilles bursitis or tendinitis (ICD-9-CM 726.71) Active 726.71 RILEY GALVAN [facility] Acquired right hallux valgus Active 452076452575925 RILEY GALVAN [facility] Ankle ulcer due to type 2 diabetes mellitus ([place] [address] [id number]) Active 56982407548515 SIMON NEELY [facility] Bereavement (SNOMED [place] 08803801) Active V62.89 SIMON NEELY [facility] Bilateral plantar fasciitis (SNOMED CT [id number]) Ac tive [id number] RILEY GALVAN [facility] BIPOLAR AFFECTIVE NOS Active 296.7 DEMETRA UREÑA [facility] Bipolar disorder (SNOMED CT 15863343) Active [id number] KIMBERLY BANG [facility] Bunion Active 727.1 MONICA MADDOX [facility] Carpal Tunnel Syndrome * (ICD-9-CM 354.0) Active 354.0 Oct 16, 2002 Entered By: GALILEA BENTÍEZ Comment: rt GALILEA BENÍTEZ [facility] Cerebral Palsy NEC (ICD-9-CM 343.8) Active 343.8 SEPIDEH NELSON [facility] Depression * (ICD-9-CM 311./300.4) Active 311. SIMON NEELY [facility] Derangement of meniscus Active 717.5 J 2001 Entered By: DEMETRA UREÑA Comment: left knee, arthroscopy 11/23 [facility] Diabetes mellitus (SNOMED CT 51263897) Active 94636980 SIMON NEELY [facility] Difficulty balancing Active 497640959 HARRISON NEELY [facility] Elevated Liver Function Tests (ICD-9-CM 794.8) Active 794.8 SIMON NEELY [facility] Enthesopathy of ankle and tarsus (ICD-9-CM 726.70/726.79) Active 72 6.70 BECCA JONES [facility] Flat foot Active 734. MONICA MADDOX [facility] GERD * (ICD-9-CM 530.81) Active 530.81 SIMON NEELY [facility] Hip Pain (ICD-9-CM 719.45) Active 719.45 SIMON YA [facility] Hyperkeratosis Active 701.1 MONICA MADDOX RT Jose Roberto [facility] Hyperlipidemia * (ICD-9-CM 272.4) Active 272.4 SIMON NEELY [facility] Hypertension * (ICD-9-CM 401.9) Active 401.9 GALILEA BENÍTEZ [facility] Hypertension * (ICD-9-CM 401.9) Active 401.9 SIMON NEELY [facility] Insomnia * (ICD-9-CM 780.52) Active 780.52 SIMON THOMAS [facility] Joint Pain Forearm Active 719.43 MEGANLIYAHLEONIDAS S [facility] Lower Leg Injury NOS Active 959.7 MEGANLIYAHA N S [facility] Morbid Obesity * (ICD-9-CM 278.01) Active 278.01 DARION [facility] Obesity * (ICD-9-CM 278.00) Active 278.00 GALILEA WEST [facility] Onychomycosis (SNOMED CT 907743181) Active 110.1 [facility] Osteoarthosis Shoulder Active 715.91 MEGANVERNELL S D[facility]ION [facility] Pain in joint involving shoulder region (ICD-9-CM 719.41) Active 71 9.41 [facility] Routine Gynecological examination Active V72.31 [facility] Sciatica * (ICD-9-CM 724.3) Active 724.3 SIMON CAMP [facility] Unspecified chest pain * (ICD-9-CM 786.50) Active 786.50 MARK VIVAS [facility] Unsteady when walking Active [id number] HARRISON NEELY [facility] Urinary Incontinence * (ICD-9-CM 788.30) Active 788.30 JJ GAYTAN [facility] MUSCLE SPASM Inactive 728.85 May 29, 2007 Sep 02 Entered By: TONY BENÍTEZ Comment: shoulders TONY BENÍTEZ [facility] Radiology Reports: +/- 30 days of the encounter No Data Provided for This Section Pathology Reports: +/- 30 days of the encounter No Data Provided for This Section Encounter Notes: All associated encounter notes This section contains the clinical notes associated to the Encounter. Date/Time Encounter Note(s) Provider Source Jun 04, 2019 02:14 PM MENTAL HEALTH TELEPHONE ENCO UNTER NOTE: LOCAL TITLE: [place] PHONE [facility] T[place]: MENTAL HEALTH TELEPHONE ENCOUNTER NOTE DATE OF NOTE: JUN 04, 2019@14:14 ENTRY DATE: JUN 04, 2019@14:14:45 AUTHOR: EMBER JARVIS EXP COSIGNER: URGENCY: STATUS: COMPLETED Called per her request. is questioning the quantity of [place] pills she received and why the label continues with her need to make an appointment prior to refills. Per CPRS - Dispense Drugs (units/dose): LITHIUM CARBONATE 300MG CAP () Last Filled: 06/03/19 Refills Remainin Filled: 06/03/19 (Mail) RENEWED FROM RX # [id number] Partial Fills: 06/03/19 (Mail) Qty: 28 until cmop Above information explained to [place] and she verbalizes understanding. is willing to schedule a future appointment at this time and is agreeable to call being transferred to [facility] to assist her. [place] denied any other MH care needs and thanked this telegraphic typewriter operator for calling. /susie/ EMBER JARVIS R.N. Signed: 06/04/2019 14:19 EMBER JARVIS [facility]
--- OUTSIDE RECORDS SUMMARY | 2020-03-28 08:24 | XMS REPORT ---
Author Author Department of [facility] hospital[facility]AN[facility]A [facility] Aff[facility] Address [address] [place] [address] Phone Unavailable Care Team Providers Care Stonecutter Assistant Name Role Phone FLORINDA SIMON PCP Unavailable [...] PART A Aug 25, 2011 PART A [id number] GADBERRY,CHARLANNE PATIENT MEDICARE (WNR) MEDICARE (M) PART B Aug 25, 2011 PART B [id number] GADBERRY,CHARLANNE PATIENT MEDICARE (WNR) MEDICARE (M) PART A Aug 25, 2011 PART A [id number] GADBERRY,CHARLANNE PATIENT MEDICARE (WNR) MEDICARE (M) PART B Aug 25, 2011 PART B [id number] GADBERRY,CHARLANNE PATIENT MEDICARE (WNR) MEDICARE (M) PART A Aug 25, 2011 PART A [id number] [phone] SANDRA MORELOS PATIENT MEDICARE (WNR) MEDICARE (M) PART B Aug 25, 2011 PART B [id number] SANDRA MORELOS PATIENT MEDICARE PART D (WNR) MEDICARE (M) PART D Sep 25, 2012 PART D [id number] SANDRA WHITMAN PATIENT Selected Encounter This section includes the information on record at [place] for the Encounter. Date/Time Encounter Type Encounter Description Reason Provider Source Apr 01, 2019 02:30 PM OFFICE/OUTPATIENT VISIT [facility] - IND ICD-10-CM F31.32 Bipolar disorder, current episode depressed, moderate with Provider Comments: Bipolar disorder ([facility] [id number]) KIMBERLY BANG [facility] IHE Encounter Template Text not used by [place] Assessments - Encounter Diagnoses This section includes the primary and secondary diag noses documented for the Encounter. Date/Time Primary/Secondary Diagnosis Diagnosis Name Provider Source Apr 01, 2019 02:57 PM PRIMARY Bipolar disorder, current episode depressed, moderate KANG URRUTIA [facility] Plan of Treatment: Future Appointments (+ [...] Date/Time Appointment Type Appointment Facili ty Name May 30, 2019 11:15 AM AMBULATORY - NONE [facility] Aug 06, 2019 02:00 PM AMBULATORY - PSYCHIATRY DARION MARTINEZ [facility] Aug 06, 2019 02:01 PM AMBULATORY - PSYCHIATRY [facility] Active, Pending, and Scheduled Orders This section [...] the Encounter. The data comes from all [place] treatment [facility]. Test Date/Time Test Type Test Details Facility Name Apr 15, 2019 06:00 AM Laboratory - Chemistry Order COMPREHEN SIVE METABOLIC PANEL GREEN TOP TUBE PLASMA SP DARION MARTINEZ [facility] Apr 15, 2019 06:00 AM Laboratory - Chemistry Order LITHIUM R ED/GOLD SERUM SP ~For Test: LITHIUM ~Dose is expected to be at &TROUGH level. DARION Alvarado. [facility] Surgical Procedures: All associated to the [...] Dec 28, 2015 10:28 AM CURRENT NON-SMOKER [facility] Tobacco Use History This section includes a history of the smoking, or tobacco -related health factors, that were collected on or before the date of the Encoun ter. The data comes from the [place] facility where the Encounter took place. Date/Time Smoking Status/Tobacco Use Comment [facility] it Dec 28, 2015 10:28 AM LIFETIME NON-TOBACCO USER DARION ChristianoIna MARTINEZ [facility] May 14, 2015 10:33 AM CURRENT NON-SMOKER DARION Jose Roberto [facility] May 14, 2015 10:33 AM LIFETIME NON-TOBACCO USER DARION Jose Roberto [facility] Dec 08, 2014 10:25 AM CURRENT NON-SMOKER [place] Jose Roberto [facility] Dec 08, 2014 10:25 AM LIFETIME NON-TOBACCO USER [facility] Oct 20, 2014 09:33 AM CURRENT NON-SMOKER DARION Jose Roberto [facility] Oct 20, 2014 09:33 AM LIFETIME NON-TOBACCO USER DARION Cid [facility] Jul 22, 2014 09:41 AM CURRENT [facility]MOK[facility] Jul 22, 2014 09:41 AM LIFETIME NON-TOBACCO USER DARION Cid [facility] February 04, 2014 10:04 AM NON-TOBACCO USER DARION ChristianoIna MARTINEZ [facility] Dec 16, 2013 11:26 AM CURRENT NON-SMOKER [facility]id [facility] Dec 16, 2013 11:26 AM LIFETIME NON-TOBACCO USER DARION MARTINEZ [facility] Jan 14, 2013 01:14 PM CURRENT [facility]MOK[facility] Jan 14, 2013 01:14 PM LIFETIME NON-TOBACCO USER DARION MARTINEZ [facility] February 14, 2012 09:57 AM CURRENT NON-SMOKER DARION MARTINEZ [facility] February 14, 2012 09:57 AM LIFETIME NON-TOBACCO USER DARION MARTINEZ [facility] Mar 14, 2011 01:13 PM CURRENT NON-SMOKER DARION MARTINEZ [facility] Mar 14, 2011 01:13 PM LIFETIME NON-TOBACCO USER DARION MARTINEZ [facility] Apr 15, 2010 09:39 AM CURRENT NON-SMOKER DARION MARTINEZ [facility] Apr 15, 2010 09:39 AM LIFETIME NON-TOBACCO USER DARION MARTINEZ [facility] Mar 09, 2010 02:30 PM CURRENT NON-SMOKER DARION MARTINEZ [facility] Mar 09, 2010 02:30 PM LIFETIME NON-TOBACCO USER DARION MARTINEZ [facility] Nov 06, 2009 10:50 AM CURRENT NON-SMOKER DARION MARTINEZ [facility] Nov 06, 2009 10:50 AM LIFETIME NON-TOBACCO USER DARION MARTINEZ [facility] Advance Directives: All historical and current Section Date Range: From patient's date of to the date document was create d. This section includes ALL of a patient's completed or amen ded [place] Advance and Rescinded Directives. The entries below indicate that a direc tive exists for the patient, but an actual copy is not included with this docume nt. The data comes from all [place] facilities. Date Advance Directives Provider Source Sep 15, 2009 ADVANCE DIRECTIVE DISCUSSION JADE VARMA [facility] Jul 21, 2006 ADVANCE DIRECTIVE [facility] Jul 12, 2006 ADVANCE DIRECTIVE DISCUSSION SAV PAULSON [facility] Allergies and Adverse Reactions (ADRs): All [...] to adverse reactions to drug (diso rder) [facility] May 04, 2007 Propensity to adverse reactions to drug ( disorder) Cough [facility] LEVAQU[place] Aug 22, 2017 Propensity to adverse reactions to drug (diso rder) [facility] Oct 08, 2015 Propensity to adverse reactions to drug (disorder) Eruption [facility] LISINOPRIL Aug 22, 2017 Propensity to adverse reactions to drug (diso rder) [facility] LISINOPRIL Jan 16, 2007 Propensity to adverse reactions to drug (disorder) Cough MELVA [facility] NIACIN Aug 22, 2017 Propensity to adverse reactions to drug (diso rder) [facility] Oct 23, 2008 Propensity to adverse reactions to drug ( disorder) Eruption [facility] 15 Medications: VA dispensed (-15 months) and Non-VA Documented (Obtained Outside V A) Section Date Range: 1) prescriptions processed by a VA pharmacy in the last 15 m [facility], and 2) all medications recorded in the [place] medical record as "non-VA medic ations". Pharmacy terms refer to [place] pharmacy's work on prescriptions. VA patient s [...] BLOOD GLUCOSE TESTING 50 Jun 06, 2020 [id number] February 21, 2020 SIMON NEELY AMLODIPINE BESYLATE 10MG TAB Active TAKE ONE TABLET BY MOUTH EVERY MORNING 90 January 23, 2021 [id number] Jan 23, 2020 SIMON NEELY AMLODIPINE BESYLATE 10MG TAB Discontinued TAKE ONE TA BLET BY MOUTH EVERY MORNING 90 Nov 27, 2019 [id number] Oct 21, 2019 SIMON NEELY [facility] ATORVASTATIN [place] 20MG TAB Active TAKE ONE-HALF T ABLET BY MOUTH AT BEDTIME FOR CHOLESTEROL - REPORT ANY UNEXPLAINED MUSCLE PAIN/WEAKNESS TO YOUR PROVIDER TAKE IN PLACE OF CRESTOR, VA DOESNT SUPPLY CRESTOR, FOR CHOLESTEROL - REPORT ANY UNEXPLAINED MUSCLE PAIN/WEAKNESS TO YOUR PROVIDER TAKE IN PLACE OF CRESTOR, VA DOESNT SUPPLY CRESTOR, 45 January 23, 2021 [id number] Jan 23, 2020 HARRISON NEELY ATORVASTATIN CA 20MG TAB Discontinued TAKE ONE-HALF T ABLET BY MOUTH AT BEDTIME FOR CHOLESTEROL - REPORT ANY UNEXPLAINED MUSCLE PAIN/WEAKNESS TO YOUR PROVIDER TAKE IN PLACE OF CRESTOR, VA DOESNT SUPPLY CRESTOR, FOR CHOLESTEROL - REPORT ANY UNEXPLAINED MUSCLE PAIN/WEAKNESS TO YOUR PROVIDER TAKE IN PLACE OF CRESTOR, VA DOESNT SUPPLY CRESTOR, 45 Dec 07, 2019 [id number] Mar 01, 2019 HARRISON NEELY [facility] BRIEF,SUPER PLUS ABSORB WITH BARRIERS UNDERWEAR X-LARGE ATTE NDS Active USE DIRECTED DIRECTED FOR INCONTINENCE 56 Nov 04, 2020 [id number] Nov 09, 2019 SIMON NEELY BRIEF,SUPER PLUS ABSORB WITH BARRIERS UNDERWEAR X-LARGE ATTE NDS Discontinued USE DIRECTED DIRECTED FOR INCONTINENCE 56 Apr 01, 2020 [id number] Aug 06, 2019 SIMON NEELY GLIPIZIDE 5MG TAB Active TAKE ONE TABLET BY M OUTH EVERY DAY BEFORE BREAKFAST FOR DIABETES. TAKE 30 MINUTES BEFORE EATING. 90 Apr 22, 2020 [id number] February 12, 2020 SIMON NEELY GLIPIZIDE 5MG TAB Discontinued TAKE ONE TABLET BY M OUTH EVERY DAY BEFORE BREAKFAST FOR DIABETES. TAKE 30 MINUTES BEFORE EATING. 90 Feb 242019 [id number] February 12, 2020 SIMON NEELY [facility] GLIPIZIDE 5MG TAB Discontinued TAKE ONE TABLET BY M OUTH EVERY DAY BEFORE BREAKFAST FOR DIABETES. TAKE 30 MINUTES BEFORE EATING. 90 January [id number] Nov 24, 2019 SIMON NEELY GLIPIZIDE 5MG TAB Discontinued TAKE ONE TABLET BY M OUTH EVERY DAY BEFORE BREAKFAST FOR DIABETES. TAKE 30 MINUTES BEFORE EATING. 90 Nov [id number] Sep 05, 2019 SIMON NEELY LANCET,SOFTCLIX Active USE LANCET BIW FOR TESTING BL OOD GLUCOSE DIRECTED 100 Jun 06, 2020 [id number] Jun 07, 2019 SIMON NEELY CBO C LITHIUM CARBONATE 300MG CAP Active TAKE 1 CAPSU LE BY MOUTH EVERY MORNING AND TAKE 3 CAPSULES BY MOUTH AT BEDTIME FOR MOOD. MUST MAKE AN APPT OR WILL TAPER AND DISCONTINUE MEDICATIONS 120 February 12, 2021 [id number] Mar 04, 2020 ELOISE HUYNH [facility] LITHIUM CARBONATE 300MG CAP Discontinued TAKE 1 CAPSU LE BY MOUTH EVERY MORNING AND TAKE 3 CAPSULES BY MOUTH AT BEDTIME FOR MOOD. MUST MAKE AN APPT OR WILL TAPER AND DISCONTINUE MEDICATIONS 120 Aug 06, 2020 [id number] Dec 16, 2019 KANG ZAYAS [facility] LITHIUM CARBONATE 300MG CAP Discontinued TAKE 1 CAPSU LE BY MOUTH EVERY MORNING AND TAKE 3 CAPSULES BY MOUTH AT BEDTIME FOR MOOD. MUST MAKE AN APPT OR WILL TAPER AND DISCONTINUE MEDICATIONS 120 Jun 10, 2020 [id number] Jul 19, 2019 KIMBERLY TARIQ [facility] LITHIUM CARBONATE 300MG CAP Discontinued TAKE 1 CAPSU LE BY MOUTH EVERY MORNING AND TAKE 3 CAPSULES BY MOUTH AT BEDTIME FOR MOOD. MUST MAKE AN APPT OR WILL TAPER AND DISCONTINUE MEDICATIONS 120 Jul 03, 2019 [id number] Jun 03, 2019 KIMBERLY TARIQ [facility] LITHIUM CARBONATE 300MG CAP Discontinued TAKE 1 CAPSU LE BY MOUTH EVERY MORNING AND TAKE 3 CAPSULES BY MOUTH AT BEDTIME FOR MOOD. MUST MAKE AN APPT OR WILL TAPER AND DISCONTINUE MEDICATIONS 120 Mar 23, 2019 [id number] February 21, [address] [facility] LITHIUM CARBONATE 300MG CAP Discontinued TAKE 1 CAPSU LE BY MOUTH EVERY MORNING AND TAKE 3 CAPSULES BY MOUTH AT BEDTIME FOR MOOD. 120 Dec 18, 2019 [id number] Jan 11, 2019 KIMBERLY BANG [facility] LITHIUM CARBONATE 300MG TAB,SA Discontinued TAKE [...] SPLIT, OR CHEW. 234 May 31, 2019 [id number] Apr 01, 2019 [facility]ANG [facility] NO KNOWN NON-VA MEDS MISCELLANEOUS Non-VA Non-VA Documented by: MICHELLE BARTHOLOMEW Docume nted at: [facility] NO KNOWN NON-VA MEDS MISCELLANEOUS Non-VA Non-VA Documented by: GALILEA BENÍTEZ Docume nted at: [facility] OXYCODONE HCL 5MG TAB No n-VA TAKE ONE TABLET BY MOUTH EVERY 6 HOURS NEEDED Non-VA Docume nted by: SIMON NEELY Docume nted at: [facility] QUETIAPINE FUMARATE 100MG TAB Active TAKE ONE-HALF TABL ET BY MOUTH AT BEDTIME 15 Mar 25, 2021 [id number] Mar 24, 2020 JASSONARELOISE [facility] TRAMADOL HCL 50MG TAB No n-VA TAKE ONE TABLET BY MOUTH EVERY 6 HOURS NEEDED Non-VA Docume nted by: SIMON NEELY Docume nted at: [facility] TRAZODONE HCL 100MG TAB Discontinued TAKE FOUR TABLET S BY MOUTH AT BEDTIME FOR MOOD OR SLEEP. 120 February 12, 2021 [id number] Mar 01, 2020 ELOISE HUYNH [facility] TRAZODONE HCL 100MG TAB Discontinued TAKE FOUR TABLET S BY MOUTH AT BEDTIME FOR MOOD OR SLEEP. 120 Aug 06, 2020 [id number] February 10, 2020 [facility]AS [facility] TRAZODONE HCL 100MG TAB Discontinued TAKE FOUR TABLET S BY MOUTH AT BEDTIME FOR MOOD OR SLEEP. 120 Jun 03, 2020 [id number] Jul 29, 2019 [facility]LY BANG [facility] TRAZODONE HCL 100MG TAB Discontinued TAKE FOUR TABLET S BY MOUTH AT BEDTIME FOR MOOD OR SLEEP. 120 February 05, 2020 [id number] May 06, 2019 KIMBERLY BANG [facility] TRAZODONE HCL 100MG TAB Discontinued TAKE FOUR TABLET S BY MOUTH AT BEDTIME FOR MOOD OR SLEEP. 120 Sep 14, 2019 [id number] Jan 07, 2019 [facility]LY BANG [facility] TROSPIUM CL 20MG TAB Active TAKE ONE TABLET BY MOUTH TWO TIMES A DAY FOR BLADDER. TAKE ON AN EMPTY STOMACH OR AT LEAST ONE HOUR BEFORE FOOD. PER DR. BUTLER 180 January 23, 2021 [id number] Mar 16, 2020 SIMON NEELY ONS [facility] TROSPIUM CL 20MG TAB Discontinued TAKE ONE TABLET BY MOUTH TWO TIMES A DAY FOR BLADDER. TAKE ON AN EMPTY STOMACH OR AT LEAST ONE HOUR BEFORE FOOD. PER DR. BUTLER 180 Apr 01, 2020 [id number] Dec 17, 2019 SIMON NEELY ONS [facility] VENLAFAXINE HCL 75MG 24HR CAP,SA Active TAKE 3 CAPSULES BY MOUTH ONCE A DAY FOR MOOD. TAKE WITH FOOD. 90 February 12, 2021 [id number] Mar 04, 2020 Arlette HUYNH [facility] VENLAFAXINE HCL 75MG 24HR CAP,SA Discontinued TAKE 3 CAPSULES BY MOUTH ONCE A DAY FOR MOOD. TAKE WITH FOOD. 90 Aug 06, 2020 [id number] Jan 05 0 KANG ZAYAS [facility] VENLAFAXINE HCL 75MG 24HR CAP,SA Discontinued TAKE 3 CAPSULES BY MOUTH ONCE A DAY FOR MOOD. TAKE WITH FOOD. 90 Aug 28, 2019 [id number] Aug 01 9 KIMBERLY TARIQ [facility] VENLAFAXINE HCL 75MG 24HR CAP,SA Discontinued TAKE 3 CAPSULES BY MOUTH ONCE A DAY FOR MOOD. TAKE WITH FOOD. 90 February 05, 2020 [id number] Jul 01 9 KIMBERLY TARIQ [facility] Problems (Conditions): All historical and current [...] 781.2 GALILEA BENÍTEZ [facility] Achilles bursitis or tendinitis (ICD-9-CM 726.71) Active 726.71 RILEY GALVAN [facility] Acquired right hallux valgus Active [id number] RILEY GALVAN [facility] Ankle ulcer due to type 2 diabetes mellitus ([place] [address] [id number]) Active [id number] ISMON NEELY [facility] Bereavement (SNOMED CT 47010992) Active V62.89 SIMON NEELY [facility] Bilateral plantar fasciitis (SNOMED CT [id number]) Ac tive [id number] RILEY GALVAN [facility] BIPOLAR AFFECTIVE NOS Active 296.7 DEMETRA UREÑA [facility] Bipolar disorder (SNOMED CT 56154567) Active 68486384 KIMBERLY BANG [facility] Bunion Active 727.1 MONICA MADDOX [facility] Carpal Tunnel Syndrome * (ICD-9-CM 354.0) Active 354.0 Oct 16, 2002 Entered By: GALILEA BENÍTEZ Comment: rt GALILEA BENÍTEZ [facility] Cerebral Palsy NEC (ICD-9-CM 343.8) Active 343.8 SEP[facility]H [facility] Depression * (ICD-9-CM 311./300.4) Active 311. SIMON NEELY [facility] Derangement of meniscus Active 717.5 J an 2001 Entered By: DEMETRA UREÑA Comment: left knee, arthroscopy 11/23 DEMETRA UREÑA [facility] Diabetes mellitus (SNOMED CT 69152527) Active 51036323 SIMON NEELY [facility] Difficulty balancing Active 998998898 HARRISON NEELY [facility] Elevated Liver Function Tests (ICD-9-CM 794.8) Active 794.8 [facility] Enthesopathy of ankle and tarsus (ICD-9-CM 726.70/726.79) Active 72 6.70 BECCA JONES [facility] Flat foot Active 734. [facility] GERD * (ICD-9-CM 530.81) Active 530.81 SIMON NEELY [facility] Hip Pain (ICD-9-CM 719.45) Active 719.[address] [facility] Hyperkeratosis Active 701.1 [facility] Hyperlipidemia * (ICD-9-CM 272.4) Active 272.4 [facility] Hypertension * (ICD-9-CM 401.9) Active 401.9 GALILEA BENÍTEZ [facility] Hypertension * (ICD-9-CM 401.9) Active 401.[address] [facility] Insomnia * (ICD-9-CM 780.52) Active 780.52 SIMON THOMAS [facility] Joint Pain Forearm Active 719.43 [facility] Lower Leg Injury NOS Active 959.[address] [facility] Morbid Obesity * (ICD-9-CM 278.01) Active 278.01 DARION YOUNG [facility] [place] [facility] Obesity * (ICD-9-CM 278.00) Active 278.00 GALILEA WEST [facility] Onychomycosis (SNOMED CT 182330400) Active 110.1 SIMON NEELY [facility] Osteoarthosis Shoulder Active 715.91 VERNELL GUZMAN [facility] Pain in joint involving shoulder region (ICD-9-CM 719.41) Active 71 9.41 SIMON NEELY [facility] Routine Gynecological examination Active V72.31 [facility] Sciatica * (ICD-9-CM 724.3) Active 724.3 SIMON CAMP DARION Cid [facility] Unspecified chest pain * (ICD-9-CM 786.50) Active 786.50 MARK VIVAS [facility] Unsteady when walking Active 30491840 HARRISON NEELY DARION [facility] Urinary Incontinence * (ICD-9-CM 788.30) Active 788.30 JJ GAYTAN [facility] MUSCLE SPASM Inactive 728.85 May 29, 2007 Sep 02 Entered By: TONY BENÍTEZ Comment: shoulders TONY BENÍTEZ [facility] Radiology Reports: +/- 30 days of the encounter No Data Provided for This Section Pathology Reports: +/- 30 days of the encounter No Data Provided for This Section Encounter Notes: All associated encounter notes This section contains the clinical notes associated to the Encounter. Date/Time Encounter Note(s) Provider Source Apr 01, 2019 12:40 PM MENTAL HEALTH NOTE: LOCAL TITLE: [facility] PROVIDER FOLLOW-UP STANDARD TITLE: MENTAL HEALTH NOTE DATE OF NOTE: APR 01, 2019@12:40 ENTRY DATE: APR 01, 2019@12:40:17 AUTHOR: KIMBERLY BANG EXP COSIGNER: URGENCY: STATUS: COMPLETED [facility] PROVIDER FOLLOW-UP Has ADDENDA Progress Note via tele med session Pt previously given information she can be seen in person or via tele med sessions Active Outpatient Medications (including Supplies): Outpatient Medications [...] OF CRESTOR, [facility] DOESNT SUPPLY CRESTOR, 4) GLIPIZIDE 5MG TAB TAKE ONE TABLET B Y MOUTH EVERY DAY ACTIVE BEFORE BREAKFAST FOR DIABETES. TAKE 30 MINUTES BEFORE EATING. 5) TRAZODONE HCL 100MG TAB TAKE FOUR T ABLETS BY MOUTH AT ACTIVE BEDTIME FOR MOOD OR SLEEP. 6) VENLAFAXINE HCL 75MG 24HR SA CAP TA KE THREE CAPSULES ACTIVE BY MOUTH ONCE A DAY FOR MOOD. TAKE WITH FOOD. Compared newly ordered medications and medication changes [...] mins with at least 16 minutes psychotherapy. Chief Complaint: Medication follow up Relevant History: 63 y o female last seen by provider in March 2018, last month pt requested a refill and was given a one month supply with instructions she needed a follow up appt to stay on current medications. Pt comes in today saying she is almost out of lithium-- has been taking one 300 mg dose a day as she was almost out of the medications. Says has been consistently taking effexor and trazadone. Pt says is not having problems with depression or anhedonia-- says is not having any suicidal or homicidal ideations today-- has history of one past attempt (an overdose). Says had a shoulder surgery in December but is still having a lot of pain. Pt says sleep is variable but attributes it to need to frequently urinate-- denies nightmares/bad dreams-- estimates sleep is around 6-8 hours anight with trazadone-- energy is low-- appetite and weight is reported as mostly unchanged. Admits to some anxiety-- but denies problems with PTSD issues or symptoms. Despite being on lower dose of lithium says mood is primarily stable, but worries if not on lithium will become unstable. Says etoh usage is rare maybe one drink a year-- Past tried meds: tegretal, lithium, celexa, ambein, temezepam, effexor, seroquel and cogentin. trazadone Compliance with treatment: noncompliant-- pt canceled follow ups Medication side effects: denies side effects Reliability of historian: appears reliable Pertinent Mental Status Exam: Alert and Oriented. Affect and mood anxious today-- speech logical with moderate pressure-- somewhat tangential today-- Langage intact. Does demonstrate some flight of ideas, but is easily redirectable in session. Adequate fund of knowledge demonstrated. Psychomotor is figiting/restless today-- Denies any suicidal or homicidal ideations today-- history of one known past attempt-- overdose. Denies any psychotic s/s today-- did not appear to be responding to any internal stimili today. Memory appears intact. Pt assessed to be low to minimal suicide risk today. Pt informated that [facility] is [facility] and she will be assigned a new provider. Reminded she can always access care thru our triage clinic, covering providers and/or team RN until seen by new provider. Diagnostic Impression based on DSM-5 criteria:Bipolar, personality disorder Target Symptoms/Goals for Treatment: 1. Report improved mood on mood scale. 2. Report stable mood. 3. Report absence of suicidality. 4. Report sleep at 6-8 hrs a night. Plan: 1. Reincrease lithium from 300 mg po a day to 300 mg bid x 2 days then go to 300 mg in am and 600 mg in pm x 2 days t hen go to 300 mg in am and 900 mg po hs-- will have this overnighted to pt-- 2 Continue effexor SR 225 mg po q am f or anxiety/depression. Blood pressure and pulse to be checked today at [facility]-- 3. Continue trazadone 400 mg po hs for sleep issues. 4. Yearly reminders and AIMS need tom paulino in march 2020. 5. BLANCO for Rico Morelos signed and on re cords. 6. Lab--will do lab on 04/15/19 to get a ccurate level and recheck liver/kidney function (november lab showed ast 46/alt 96/kidney function okay)-- cmp, lithium level-- 7. RTC-- will call after we get lab calvin k to see if we need to change scheduling-- but will plan on 3 month follow up-- call if there are problems. Supportive listening provided Education offered on disease state and medications prescribed Call back to [facility] if disease state worsens or problems develop with medication RTC: Medication Reconciliation Are there any OTC medications, [...] physician. Physician notified via additional signer N/A Depression Screening: PHQ-[id number] Depression Screening Score: 2 The score on this administration is 2, which indicates a negative screen on the Depression Scale over the past two weeks. Suicide Screening Score: 0 The results of this administration indicates a NEGATIVE primary screen for Risk of Suicide over the last 2 weeks. Over the past two weeks, how often have you been bothered by the following problems? 1. Little interest or pleasure in doing things Several days 2. Feeling down, depressed, or hopeless Several days 3. Thoughts that you would be better off or of hurting yourself in some way Not at all Follow-Up Pos PTSD/Depression/SI: I have reviewed the results of the Mental Health screens and have evaluated the patient. Based on the evaluation, the following disposition plan will be implemented: Already receiving needed treatment. Contact information and instructions for accessing emergency services provided. Comment: denies any suicidality C-SSRS [place]: [place] Suicide Severity Rating Scale (C-SSRS) screener 1. [...] this within the past 3 months? No PTSD Screening: PC-PTSD-5+I9 PTSD Screening Score: 0 The score for this administration is 0, which indicates a NEGATIVE screen for PTSD in the past month. Suicide Screening Score: 0 The results of this administration revealed no suicidal ideation over the last 2 weeks, which indicates a NEGATIVE primary screen for Risk of Suicide. Questions 1-5 reference a time frame of the past month Sometimes things happen to people that are unusually or especially frightening, horrible or traumatic. Have you ever experienced this kind of event? YES 1. Had nightmares about the event(s) or thought about the event(s) when you did not want to? NO 2. Tried hard not to think about the event(s) or went out of your way to avoid situations that reminded you of the event(s)? NO 3. Been constantly on guard, watchful, or easily startled? NO 4. [place] numb or detached from people, activities, or your surroundings? NO 5. [place] guilty or unable to stop blaming yourself or others for the event(s) or any problems the event(s) may have caused? NO 6. Over the last 2 weeks, how often have you been bothered by thoughts that you would be better off or of hurting yourself in some way? Not at All Alcohol Use Screen (AUDIT-C): Alcohol Screen: SCREEN FOR ALCOHOL (AUDIT-C) An alcohol screening test (AUDIT-C) was negative (score=1). 1. How often did you have a drink containing alcohol in the past year? Monthly or less 2. How many drinks containing alcohol did you have on a typical day when you were drinking in the past year? 1 or 2 3. How often did you have six or more drinks on one occasion in the past year? 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 Request [facility] RN call and direct her to lab as directed at 04/01 appointment,I am holding on refills until labs completed due to risks involved with not monitoring lithium level. I will reorder labs only at this time. /susie/ VAL COLEMAN APRN,ASSISTANT [employer] COACH,BC Signed: 05/28/2019 09:46 Receipt Acknowledged By: 05/29/2019 16:41 /es/ KIMBERLY FICNH R.N. [facility]
--- OUTSIDE RECORDS SUMMARY | 2020-03-28 08:24 | XMS REPORT ---
Author Author Department of [facility] servicesSANDRA Organization Department of [facility] Affai Address [address] [place] [address] Phone Unavailable Care Team Providers Care Land Department Head Name Role Phone FLORINDASIMON PCP Unavailable Insurance [...] PART A Aug 25, 2011 PART A [id number] GADBERRY,CHARLANNE PATIENT MEDICARE (WNR) MEDICARE (M) PART B Aug 25, 2011 PART B [id number] GADBERRY,CHARLANNE PATIENT MEDICARE (WNR) MEDICARE (M) PART A Aug 25, 2011 PART A [id number] GADBERRY,CHARLANNE PATIENT MEDICARE (WNR) MEDICARE (M) PART B Aug 25, 2011 PART B [id number] GADBERRY,CHARLANNE PATIENT MEDICARE (WNR) MEDICARE (M) PART A Aug 25, 2011 PART A [id number] SANDRA MORELOS PATIENT MEDICARE (WNR) MEDICARE (M) PART B Aug 25, 2011 PART B [id number] SANDRA MORELOS PATIENT MEDICARE PART D (WNR) MEDICARE (M) PART D Sep 25, 2012 PART D [id number] SANDRA WHITMAN PATIENT Selected Encounter This section includes the information on record at [place] for the Encounter. Date/Time Encounter Type Encounter Description Reason Provider Source May 28, 2019 09:53 AM Outpatient Encounter ADMIN PAT ACTIVTIES (LALI WATT) [facility] IHE Encounter Template Text not used by [place] Assessments - Encounter Diagnoses No Data Provided for This Section Plan of Treatment: Future Appointments (+ 6 months) and Future Tests (+/- 45 day s) The Plan of Treatment section includes future care activities for the patient fr om all [place] treatment facilities. This section includes future appointments and fu ture orders which are active, pending or scheduled. Future Appointments This section includes appointments that were scheduled t o occur 6 months from the date of the Encounter, up to a maximum of 20 appointme nts. The data comes from all [place] treatment [facility]. Appointment Date/Time Appointment Type Appointment Facili ty Name May 30, 2019 11:15 AM AMBULATORY - NONE [facility] Aug 06, 2019 02:00 PM AMBULATORY - PSYCHIATRY DARION Jose Roberto [facility] Aug 06, 2019 02:01 PM AMBULATORY - PSYCHIATRY [facility] Oct 09, 2019 09:30 AM AMBULATORY - NONE [facility] Nov 06, 2019 02:00 PM AM[facility]RY [place] [facility] Nov 06, 2019 02:01 PM AMBULATORY - PSYCHIATRY [facility] Active, Pending, and Scheduled Orders [...] the Encounter. The data comes from all [place] treatment [facility]. Test Date/Time Test Type Test Details Facility Name Apr 15, 2019 06:00 AM Laboratory - Chemistry Order COMPREHEN SIVE METABOLIC PANEL GREEN TOP TUBE PLASMA SP [facility] Apr 15, 2019 06:00 AM Laboratory - Chemistry Order LITHIUM R ED/GOLD SERUM SP ~For Test: LITHIUM ~Dose is expected to be at &TROUGH level. [facility] Surgical Procedures: All associated to the encounter No Data Provided for This Section Lab Results: +/- 30 days of the encounter This section includes the Chemistry and Hematology Lab R esults on record with ND for the patient. Radiology Reports and Pathology Report s are provided separately, in subsequent sections. Lab Results This section contains the Chemistry/Hematology Results douglas t were resulted 30 days before or 30 days after the date of the Encounter. Date/Time Source Result Type Result - Unit Interpretation Reference Range Comment May 30, 2019 11:20 AM DARION MARTINEZ [facility] COMPREHENSIVE METABOLI C PANEL Specimen Type: [...] May 30, 2019 11:20 AM DARION MARTINEZ [facility] LITHIUM Specimen Type: SERUM Comment: ~For Test: LITHIUM ~Dose is expected to be at &TROUGH level. LITHIUM 0.7 mmol/L 0.6-1.2 May 30, 2019 11:20 AM [facility] HEMOGLOBIN A1C Specimen Type: BLOOD No comment [...] and tobacco- related health factors from the [place] facility where the Encounter took place. Current Smoking Status This section includes the most current smoking, or tobacco -related health factor, from the [place] facility where the Encounter took place. Date/Time Current Smoking Status Comment Facility Dec 28, 2015 10:28 AM CURRENT NON-SMOKER DARION Jose Roberto [facility] Tobacco Use History This section includes a history of the smoking, or tobacco -related health factors, that were collected on or before the date of the Encoun ter. The data comes from the [place] facility where the Encounter took place. Date/Time Smoking Status/Tobacco Use Comment Facil ity Dec 28, 2015 10:28 AM LIFETIME NON-TOBACCO USER DARION Cid [facility] May 14, 2015 10:33 AM CURRENT NON-SMOKER DARION Jose Roberto [facility] May 14, 2015 10:33 AM LIFETIME NON-TOBACCO USER [place] Jose Roberto [facility] Dec 08, 2014 10:25 AM CURRENT NON-SMOKER [place] Jose Roberto [facility] Dec 08, 2014 10:25 AM LIFETIME NON-TOBACCO USER [place] Jose Roberto [facility] Oct 20, 2014 09:33 AM CURRENT NON-SMOKER [place] Jose Roberto [facility] Oct 20, 2014 09:33 AM LIFETIME NON-TOBACCO USER DARION Jose Roberto [facility] Jul 22, 2014 09:41 AM CURRENT NON-SMOKER DARION Jose Roberto [facility] Jul 22, 2014 09:41 AM LIFETIME NON-TOBACCO USER DARION Cid [facility] February 04, 2014 10:04 AM NON-TOBACCO USER DARION MARTINEZ [facility] Dec 16, 2013 11:26 AM CURRENT NON-SMOKER DARION Cid [facility] Dec 16, 2013 11:26 AM LIFETIME NON-TOBACCO USER DARION Cid [facility] Jan 14, 2013 01:14 PM CURRENT NON-SMOKER DARION Cid [facility] Jan 14, 2013 01:14 PM LIFETIME NON-TOBACCO USER DARION Cid [facility] February 14, 2012 09:57 AM CURRENT NON-SMOKER DARION Cid [facility] February 14, 2012 09:57 AM LIFETIME NON-TOBACCO USER DARION Cid [facility] Mar 14, 2011 01:13 PM CURRENT NON-SMOKER DARION Cid [facility] Mar 14, 2011 01:13 PM LIFETIME NON-TOBACCO USER DARION Cid [facility] Apr 15, 2010 09:39 AM CURRENT NON-SMOKER DARION Jose Roberto [facility] Apr 15, 2010 09:39 AM LIFETIME NON-TOBACCO USER DARION Cid [facility] Mar 09, 2010 02:30 PM CURRENT NON-SMOKER DARION MARTINEZ [facility] Mar 09, 2010 02:30 PM LIFETIME NON-TOBACCO USER DARION MARTINEZ [facility] Nov 06, 2009 10:50 AM CURRENT NON-SMOKER DARION MARTINEZ [facility] Nov 06, 2009 10:50 AM LIFETIME NON-TOBACCO USER DARION MARTINEZ [facility] Advance Directives: All historical and current Section Date Range: From patient's date of to the date document was create d. This section includes ALL of a patient's completed or amen ded [place] Advance and Rescinded Directives. The entries below indicate that a direc tive exists for the patient, but an actual copy is not included with this docume nt. The data comes from all [place] facilities. Date Advance Directives Provider Source Sep 15, 2009 ADVANCE DIRECTIVE DISCUSSION JADE VARMA [facility] Jul 21, 2006 ADVANCE DIRECTIVE [facility] Jul 12, 2006 ADVANCE DIRECTIVE DISCUSSION SAV PAULSON [facility] Allergies and Adverse Reactions (ADRs): All historical and current Section Date Range: From patient's date of to the date document was create d. This section includes Allergies and Adverse Reactions (ADR s) on record with [place] for the patient. The data comes from a ll [place] treatment facilities. It does not list Allergies/ADRs that were removed or entered in error. Some allergies/ADRs may be reported in t he Immunization section. Allergen Event Date Event Type Reaction(s) Severity Source ENALAPRIL Aug 22, 2017 Propensity to adverse reactions to drug (diso rder) [facility] ENALAPRIL May 04, 2007 Propensity to adverse reactions to drug ( disorder) Cough [facility] [place] Aug 22, 2017 Propensity to adverse reactions to drug (diso rder) [facility] [place] Oct 08, 2015 Propensity to adverse reactions to drug (disorder) Eruption [facility] LISINOPR[place] Aug 22, 2017 Propensity to adverse reactions to drug (diso rder) [facility] LISINOP[place] Jan 16, 2007 Propensity to adverse reactions to drug (disorder) Cough [facility] [place] Aug 22, 2017 Propensity to adverse reactions to drug (diso rder) [facility] NIACIN Oct 23, 2008 Propensity to adverse reactions to drug ( disorder) [facility] Medications: VA dispensed (-15 months) and Non-VA Documented (Obtained Outside V A) Section Date Range: 1) prescriptions processed by a VA pharmacy in the last 15 m [facility], and 2) all medications recorded in the VA medical record as "non-VA medic ations". Pharmacy terms refer to VA pharmacy's work on prescriptions. VA patient s are advised to take their medications as instructed by their health care team. The data comes from all [place] treatment facilities. Glossary of Pharmacy Terms:Active = A prescription that can be filled at the local VA pharmacy.Active: On Hold = An active prescription that will not be filled until pharmacy resolves the issue.Active: Susp = An active prescription that is not scheduled to be filled yet.Clinic Order = A medication received during a visit to a [place] clinic or emergency department (currently not available).Discontinued [...] BLOOD GLUCOSE TESTING 50 Jun 06, 2020 [id number] February 21, 2020 SIMON NEELY AMLODIPINE BESYLATE 10MG TAB Active TAKE ONE TABLET BY MOUTH EVERY MORNING 90 January 23, 2021 [id number] Jan 23, 2020 SIMON NEELY AMLODIPINE BESYLATE 10MG TAB Discontinued TAKE ONE TA BLET BY MOUTH EVERY MORNING 90 Nov 27, 2019 [id number] Oct 21, 2019 SIMON NEELY ATORVASTATIN CA 20MG TAB Active TAKE ONE-HALF T ABLET BY MOUTH AT BEDTIME FOR CHOLESTEROL - REPORT ANY UNEXPLAINED MUSCLE PAIN/WEAKNESS TO YOUR PROVIDER TAKE IN PLACE OF CRESTOR, [place] DOESNT SUPPLY CRESTOR, FOR CHOLESTEROL - REPORT ANY UNEXPLAINED MUSCLE PAIN/WEAKNESS TO YOUR PROVIDER TAKE IN PLACE OF CRESTOR, [facility] DOESNT SUPPLY CRESTOR, 45 January 23, 2021 [id number] Jan 23, 2020 HARRISON NEELY ATORVASTATIN CA 20MG TAB Discontinued TAKE ONE-HALF T ABLET BY MOUTH AT BEDTIME FOR CHOLESTEROL - REPORT ANY UNEXPLAINED MUSCLE PAIN/WEAKNESS TO YOUR PROVIDER TAKE IN PLACE OF CRESTOR, [place] DOESNT SUPPLY CRESTOR, FOR CHOLESTEROL - REPORT ANY UNEXPLAINED MUSCLE PAIN/WEAKNESS TO YOUR PROVIDER TAKE IN PLACE OF CRESTOR, [place] DOESNT SUPPLY CRESTOR, 45 Dec 07, 2019 [id number] Mar 01, 2019 HARRISON NEELY BRIEF,SUPER PLUS ABSORB WITH BARRIERS UNDERWEAR X-LARGE ATTE NDS Active USE DIRECTED DIRECTED FOR INCONTINENCE 56 Nov 04, 2020 [id number] Nov 09, 2019 SIMON NEELY BRIEF,SUPER PLUS ABSORB WITH BARRIERS UNDERWEAR X-LARGE ATTE NDS Discontinued USE DIRECTED DIRECTED FOR INCONTINENCE 56 Apr 01, 2020 [id number] Aug 06, 2019 SIMON NEELY GLIPIZIDE 5MG TAB Active TAKE ONE TABLET BY M OUTH EVERY DAY BEFORE BREAKFAST FOR DIABETES. TAKE 30 MINUTES BEFORE EATING. 90 Apr 22, 2020 [id number] February 12, 2020 SIMON NEELY GLIPIZIDE 5MG TAB Discontinued TAKE ONE TABLET BY M OUTH EVERY DAY BEFORE BREAKFAST FOR DIABETES. TAKE 30 MINUTES BEFORE EATING. 90 Feb 242019 [id number] February 12, 2020 SIMON NEELY GLIPIZIDE 5MG TAB Discontinued TAKE ONE TABLET BY M OUTH EVERY DAY BEFORE BREAKFAST FOR DIABETES. TAKE 30 MINUTES BEFORE EATING. 90 January [id number] Nov 24, 2019 SIMON NEELY GLIPIZIDE 5MG TAB Discontinued TAKE ONE TABLET BY M OUTH EVERY DAY BEFORE BREAKFAST FOR DIABETES. TAKE 30 MINUTES BEFORE EATING. 90 Nov [id number] Sep 05, 2019 SIMON NEELY LANCET,SOFTCLIX Active USE LANCET BIW FOR TESTING BL OOD GLUCOSE DIRECTED 100 Jun 06, 2020 [id number] Jun 07, 2019 SIMON NEELY C LITHIUM CARBONATE 300MG CAP Active TAKE 1 CAPSU LE BY MOUTH EVERY MORNING AND TAKE 3 CAPSULES BY MOUTH AT BEDTIME FOR MOOD. MUST MAKE AN APPT OR WILL TAPER AND DISCONTINUE MEDICATIONS 120 February 12, 2021 [id number] Mar 04, [address] [facility] LITHIUM CARBONATE 300MG CAP Discontinued TAKE 1 CAPSU LE BY MOUTH EVERY MORNING AND TAKE 3 CAPSULES BY MOUTH AT BEDTIME FOR MOOD. MUST MAKE AN APPT OR WILL TAPER AND DISCONTINUE MEDICATIONS 120 Aug 06, 2020 [id number] Dec 16, [address] [facility] LITHIUM CARBONATE 300MG CAP Discontinued TAKE 1 CAPSU LE BY MOUTH EVERY MORNING AND TAKE 3 CAPSULES BY MOUTH AT BEDTIME FOR MOOD. MUST MAKE AN APPT OR WILL TAPER AND DISCONTINUE MEDICATIONS 120 Jun 10, 2020 [id number] Jul 19, [address] [facility] LITHIUM CARBONATE 300MG CAP Discontinued TAKE 1 CAPSU LE BY MOUTH EVERY MORNING AND TAKE 3 CAPSULES BY MOUTH AT BEDTIME FOR MOOD. MUST MAKE AN APPT OR WILL TAPER AND DISCONTINUE MEDICATIONS 120 Jul 03, 2019 [id number] Jun 03, [address] [facility] LITHIUM CARBONATE 300MG CAP Discontinued TAKE 1 CAPSU LE BY MOUTH EVERY MORNING AND TAKE 3 CAPSULES BY MOUTH AT BEDTIME FOR MOOD. MUST MAKE AN APPT OR WILL TAPER AND DISCONTINUE MEDICATIONS 120 Mar 23, 2019 [id number] February 21, [address] [facility] LITHIUM CARBONATE 300MG CAP Discontinued TAKE 1 CAPSU LE BY MOUTH EVERY MORNING AND TAKE 3 CAPSULES BY MOUTH AT BEDTIME FOR MOOD. 120 Dec 18, 2019 [id number] Jan 11, [address] [facility] LITHIUM CARBONATE 300MG TAB,SA Discontinued TAKE [...] SPLIT, OR CHEW. 234 May 31, 2019 [id number] Apr 01, 2019 [facility] NO KNOWN NON-VA MEDS MISCELLANEOUS Non-VA Non-VA Documented by: MICHELLE BARTHOLOMEW Docume nted at: [facility] NO KNOWN NON-VA MEDS MISCELLANEOUS Non-VA Non-VA Documented by: GALILEA BENÍTEZ Docume nted at: [facility] OXYCODONE HCL 5MG TAB No n-VA TAKE ONE TABLET BY MOUTH EVERY 6 HOURS NEEDED Non-VA Docume nted by: SIMON NEELY Docume nted at: [facility] QUETIAPINE FUMARATE 100MG TAB Active TAKE ONE-HALF TABL ET BY MOUTH AT BEDTIME 15 Mar 25, 2021 [id number] Mar 24, [address] [facility] TRAMADOL HCL 50MG TAB No n-VA TAKE ONE TABLET BY MOUTH EVERY 6 HOURS NEEDED Non-VA Docume nted by: SIMON NEELY Docume nted at: [facility] TRAZODONE HCL 100MG TAB Discontinued TAKE FOUR TABLET S BY MOUTH AT BEDTIME FOR MOOD OR SLEEP. 120 February 12, 2021 [id number] Mar 01, 2020 [address] [facility] TRAZODONE HCL 100MG TAB Discontinued TAKE FOUR TABLET S BY MOUTH AT BEDTIME FOR MOOD OR SLEEP. 120 Aug 06, 2020 [id number] February 10, [address] [facility] TRAZODONE HCL 100MG TAB Discontinued TAKE FOUR TABLET S BY MOUTH AT BEDTIME FOR MOOD OR SLEEP. 120 Jun 03, 2020 [id number] Jul 29, 2019 [address] [facility] TRAZODONE HCL 100MG TAB Discontinued TAKE FOUR TABLET S BY MOUTH AT BEDTIME FOR MOOD OR SLEEP. 120 February 05, 2020 [id number] May 06, [address] [facility] TRAZODONE HCL 100MG TAB Discontinued TAKE FOUR TABLET S BY MOUTH AT BEDTIME FOR MOOD OR SLEEP. 120 Sep 14, 2019 [id number] Jan 07, 2019 [address] [facility] TROSPIUM CL 20MG TAB Active TAKE ONE TABLET BY MOUTH TWO TIMES A DAY FOR BLADDER. TAKE ON AN EMPTY STOMACH OR AT LEAST ONE HOUR BEFORE FOOD. PER DR. BUTLER 180 January 23, 2021 [id number] Mar 16, 2020 SIMON NEELY [facility] TROSPIUM CL 20MG TAB Discontinued TAKE ONE TABLET BY MOUTH TWO TIMES A DAY FOR BLADDER. TAKE ON AN EMPTY STOMACH OR AT LEAST ONE HOUR BEFORE FOOD. PER DR. BUTLER 180 Apr 01, 2020 [id number] Dec 17, 2019 SIMON NEELY [facility] VENLAFAXINE HCL 75MG 24HR CAP,SA Active TAKE 3 CAPSULES BY MOUTH ONCE A DAY FOR MOOD. TAKE WITH FOOD. February 12, 2021 [id number] Mar 04, [address] [facility] VENLAFAXINE HCL 75MG 24HR CAP,SA Discontinued TAKE 3 CAPSULES BY MOUTH ONCE A DAY FOR MOOD. TAKE WITH FOOD. Aug 06, 2020 [id number] Jan [address] [facility] VENLAFAXINE HCL 75MG 24HR CAP,SA Discontinued TAKE 3 CAPSULES BY MOUTH ONCE A DAY FOR MOOD. TAKE WITH FOOD. Aug 28, 2019 [id number] Aug [address] [facility] VENLAFAXINE HCL 75MG 24HR CAP,SA Discontinued TAKE 3 CAPSULES BY MOUTH ONCE A DAY FOR MOOD. TAKE WITH FOOD. February 05, 2020 [id number] Jul 01 9 KIMBERLY TARIQ [facility] Problems (Conditions): All historical and current Section Date Range: From patient's date of to the date document was create d. This section includes a list of Problems (Conditions) know n to [place] for the patient. It includes both active and inacti ve problems (conditions). The data comes from all [place] treatment facilities. Problem Status Problem Code Date of Onset Date of Resolution Comm ent(s) Provider Source Abnormality of Gait (ICD-9-CM 781.2) Active 781.2 GALILEA BENÍTEZ [facility] Achilles bursitis or tendinitis (ICD-9-CM 726.71) Active 726.71 RILEY GALVAN [facility] Acquired right hallux valgus Active [id number] RILEY GALVAN [facility] Ankle ulcer due to type 2 diabetes mellitus ([place] [address] [id number]) Active [id number] SIMON NEELY [facility] Bereavement (SNOMED CT 08751624) Active V62.89 SIMON NEELY [facility] Bilateral plantar fasciitis (SNOMED CT [id number]) Ac tive [id number] RILEY GALVAN [facility] BIPOLAR AFFECTIVE NOS Active 296.7 DEMETRA UREÑA [facility] Bipolar disorder (SNOMED CT 00352462) Active 56898319 [facility]IMBERLY BANG [facility] Bunion Active 727.1 MONICA MADDOX [facility] Carpal Tunnel Syndrome * (ICD-9-CM 354.0) Active 354.0 Oct 16, 2002 Entered By: GALILEA BENÍTEZ Comment: rt GALILEA BENÍTEZ [facility] Cerebral Palsy NEC (ICD-9-CM 343.8) Active 343.8 SEPIDEH NELSON [facility] Depression * (ICD-9-CM 311./300.4) Active 311. SIMON NEELY [facility] Derangement of meniscus Active 717.5 J an 2001 Entered By: DEMETRA UREÑA Comment: left knee, arthroscopy 11/23 [facility] Diabetes mellitus (SNOMED CT 96965477) Active 74522631 SIMON NEELY [facility] Difficulty balancing Active 732733554 HARRISON NEELY [facility] Elevated Liver Function Tests (ICD-9-CM 794.8) Active 794.8 SIMON NEELY [facility] Enthesopathy of ankle and tarsus (ICD-9-CM 726.70/726.79) Active 72 6.70 BECCA JONES [facility] Flat foot Active 734. MONICA MADDOX [facility] GERD * (ICD-9-CM 530.81) Active 530.81 SIMON NEELY [facility] Hip Pain (ICD-9-CM 719.45) Active 719.[address] [facility] Hyperkeratosis Active 701.1 MONICA MADDOX [facility] Hyperlipidemia * (ICD-9-CM 272.4) Active 272.[address] [facility] Hypertension * (ICD-9-CM 401.9) Active 401.9 GALILEA BENÍTEZ [facility] Hypertension * (ICD-9-CM 401.9) Active 401.9 [facility] Insomnia * (ICD-9-CM 780.52) Active 780.[address] [facility] Joint Pain Forearm Active 719.43 [facility]IDAS [facility] Lower Leg Injury NOS Active 959.7 SHARRI GUZMAN [facility] Morbid Obesity * (ICD-9-CM 278.01) Active 278.01 DARION YOUNG [facility] Obesity * (ICD-9-CM 278.00) Active 278.00 GALILEA [facility] Onychomycosis (SNOMED CT 103743724) Active 110.1 [facility] Osteoarthosis Shoulder Active 715.[address] [facility] Pain in joint involving shoulder region (ICD-9-CM 719.41) Active 71 9.41 [facility] Routine Gynecological examination Active V72.31 [facility] Sciatica * (ICD-9-CM 724.3) Active 724.[address] [facility] Unspecified chest pain * (ICD-9-CM 786.50) Active 786.50 [facility] Unsteady when walking Active [id number] [facility] Urinary Incontinence * (ICD-9-CM 788.30) Active 788.30 JJ GAYTAN [facility] MUSCLE SPASM Inactive 728.85 May 29, 2007 Sep 02 Entered By: TONY BENÍTEZ Comment: shoulders TONY BENÍTEZDAREK [facility] Radiology Reports: +/- 30 days of the encounter No Data Provided for This Section Pathology Reports: +/- 30 days of the encounter No Data Provided for This Section Encounter Notes: All associated encounter notes This section contains the clinical notes associated to the Encounter. Date/Time Encounter Note(s) Provider Source May 28, 2019 09:53 AM ADMINISTRATIVE NOTE: LOCAL TITLE: CA-ADMINISTRATIVE NOTE (BP,O) STANDARD TITLE: ADMINISTRATIVE NOTE DATE OF NOTE: MAY 28, 2019@09:53 ENTRY DATE: MAY 28, 2019@09:53:37 AUTHOR: EMBER JARVIS EXP COSIGNER: URGENCY: STATUS: COMPLETED Attempted to contact per Provider request. No answer and does not have identified VM. Brief, generic message left requesting return call and phone number provided. Alerted [facility] Blue Team of need to schedule [place] with a new Provider. Will continue to attempt contact with . /susie/ EMBER JARVIS R.N. Signed: 05/28/2019 09:57 EMBER JARVIS [facility]
--- OUTSIDE RECORDS SUMMARY | 2020-03-28 08:24 | XMS REPORT | Encounter Summary ---
Author Author [facility] Organization [facility] Address [address] [place] [address] Phone Unavailable Care Team Providers Care Stonework Supervisor Name Role Phone FLORINDA SIMON PCP Unavailable [...] PART A Aug 25, 2011 PART A [id number] GADBERRY,CHARLANNE PATIENT MEDICARE (WNR) MEDICARE (M) PART B Aug 25, 2011 PART B [id number] GADBERRY,CHARLANNE PATIENT MEDICARE (WNR) MEDICARE (M) PART A Aug 25, 2011 PART A [id number] GADBERRY,CHARLANNE PATIENT MEDICARE (WNR) MEDICARE (M) PART B Aug 25, 2011 PART B [id number] GADBERRY,CHARLANNE PATIENT MEDICARE (WNR) MEDICARE (M) PART A Aug 25, 2011 PART A [id number] SANDRA MORELOS PATIENT MEDICARE (WNR) MEDICARE (M) PART B Aug 25, 2011 PART B [id number] [phone] SANDRA MORELOS PATIENT MEDICARE PART D (WNR) MEDICARE (M) PART D Sep 25, 2012 PART D [id number] SANDRA WHITMAN PATIENT Selected Encounter This section includes the information on record at [place] for the Encounter. Date/Time Encounter Type Encounter Description Reason Provider Source May 29, 2019 04:41 PM Outpatient Encounter TELEPHONE MH ICD-1 0-CM Z71.89 Other specified counseling with Provider Comments: Other specified counseling EMBER JARVIS [facility] IHE Encounter Template Text not used by [place] Assessments - Encounter Diagnoses This section includes the primary and secondary diag noses documented for the Encounter. Date/Time Primary/Secondary Diagnosis Diagnosis Name Provider Source May 29, 2019 04:41 PM PRIMARY Other specified counseling EMBER PATEL [facility] May 29, 2019 04:41 PM SECONDARY Bipolar disorder, current episode depressed, moderate EMBER JARVIS [facility] Plan of Treatment: Future Appointments (+ 6 months) and Future Tests (+/- 45 day s) The Plan of Treatment section includes future care activities for the patient fr om all [place] treatment facilities. This section includes future appointments and fu ture orders which are active, pending or scheduled. Future Appointments This section includes appointments that were scheduled t o occur 6 months from the date of the Encounter, up to a maximum of 20 appointme nts. The data comes from all [facility]. Appointment Date/Time Appointment Type Appointment Facili ty Name May 30, 2019 11:15 AM AMBULATORY - NONE [facility] Aug 06, 2019 02:00 PM AMBULATORY - PSYCHIATRY DARION MARTINEZ [facility] Aug 06, 2019 02:01 PM AMBULATORY - PSYCHIATRY [facility] Oct 09, 2019 09:30 AM AMBULATORY - NONE GALINDO [facility] Nov 06, 2019 02:00 PM AMBULATORY - PSYCHIATRY DARION MARTINEZ [facility] Nov 06, 2019 02:01 PM AMBULATORY - PSYCHIATRY GALINDO [facility] Nov 27, 2019 11:00 AM AMBULATORY - MEDICINE [facility] Active, Pending, and [...] the Encounter. The data comes from all [place] treatment facilities. Test Date/Time Test Type Test Details Facility Name Apr 15, 2019 06:00 AM Laboratory - Chemistry Order COMPREHEN PEEWEEE METABOLIC PANEL GREEN TOP TUBE PLASMA SP DARION Cid [facility] Apr 15, 2019 06:00 AM Laboratory - Chemistry Order LITHIUM R ED/GOLD SERUM SP ~For Test: LITHIUM ~Dose is expected to be at &TROUGH level. [facility] Surgical Procedures: All associated to the encounter No Data Provided for This Section Lab Results: +/- 30 days of the encounter This section includes the Chemistry and Hematology Lab R esults on record with [place] for the patient. Radiology Reports and Pathology Report s are provided separately, in subsequent sections. Lab Results This section contains the Chemistry/Hematology Results douglas t were resulted 30 days before or 30 days after the date of the Encounter. Date/Time Source Result Type Result - Unit Interpretation Reference Range Comment May 30, 2019 11:20 AM [facility] COMPREHENSIVE METABOLI C PANEL Specimen Type: [...] May 30, 2019 11:20 AM DARION Cid [facility] LITHIUM Specimen Type: SERUM Comment: ~For Test: LITHIUM ~Dose is expected to be at &TROUGH level. LITHIUM 0.7 mmol/L 0.6-1.2 May 30, 2019 11:20 AM JOSIE AMAYA HEMOGLOBIN A1C Specimen Type: BLOOD No comment [...] and tobacco- related health factors from the [place] facility where the Encounter took place. Current Smoking Status This section includes the most current smoking, or tobacco -related health factor, from the [place] facility where the Encounter took place. Date/Time Current Smoking Status Comment Facility Dec 28, 2015 10:28 AM CURRENT NON-SMOKER [facility] Tobacco Use History This section includes a history of the smoking, or tobacco -related health factors, that were collected on or before the date of the Encoun ter. The data comes from the [place] facility where the Encounter took place. Date/Time Smoking Status/Tobacco Use Comment Facil it Dec 28, 2015 10:28 AM LIFETIME NON-TOBACCO USER DARION MARTINEZ [facility] May 14, 2015 10:33 AM CURRENT NON-SMOKER [facility] May 14, 2015 10:33 AM LIFETIME NON-TOBACCO USER [place] Jose Roberto [facility] Dec 08, 2014 10:25 AM CURRENT NON-SMOKER DARION Jose Roberto [facility] Dec 08, 2014 10:25 AM LIFETIME NON-TOBACCO USER DARION Jose Roberto [facility] Oct 20, 2014 09:33 AM CURRENT NON-SMOKER DARION Jose Roberto [facility] Oct 20, 2014 09:33 AM LIFETIME NON-TOBACCO USER DARION MARTINEZ [facility] Jul 22, 2014 09:41 AM CURRENT NON-SMOKER [facility]INO [facility] Jul 22, 2014 09:41 AM LIFETIME NON-TOBACCO USER DARION Cid [facility] February 04, 2014 10:04 AM NON-TOBACCO USER DARION Cid [facility] Dec 16, 2013 11:26 AM CURRENT NON-SMOKER [facility]ION [facility] Dec 16, 2013 11:26 AM LIFETIME NON-TOBACCO USER DARION MARTINEZ [facility] Jan 14, 2013 01:14 PM CURRENT NON-SMOKER DARION MARTINEZ [facility] Jan 14, 2013 01:14 PM LIFETIME NON-TOBACCO USER DARION MARTINEZ [facility] February 14, 2012 09:57 AM CURRENT NON-SMOKER DARION Cid [facility] February 14, 2012 09:57 AM LIFETIME NON-TOBACCO USER DARION MARTINEZ [facility] Mar 14, 2011 01:13 PM CURRENT NON-SMOKER DARION MARTINEZ [facility] Mar 14, 2011 01:13 PM LIFETIME NON-TOBACCO USER DARION MARTINEZ [facility] Apr 15, 2010 09:39 AM CURRENT NON-SMOKER DARION MARTINEZ [facility] Apr 15, 2010 09:39 AM LIFETIME NON-TOBACCO USER DARION MARTINEZ [facility] Mar 09, 2010 02:30 PM CURRENT NON-SMOKER DARION MARTINEZ [facility] Mar 09, 2010 02:30 PM LIFETIME NON-TOBACCO USER DARION MARTINEZ [facility] Nov 06, 2009 10:50 AM CURRENT NON-SMOKER DARION MARTINEZ [facility] Nov 06, 2009 10:50 AM LIFETIME NON-TOBACCO USER DARION MARTINEZ [facility] Advance Directives: All historical and current Section Date Range: From patient's date of to the date document was create d. This section includes ALL of a patient's completed or amen ded [place] Advance and Rescinded Directives. The entries below indicate that a direc tive exists for the patient, but an actual copy is not included with this docume nt. The data comes from all [place] facilities. Date Advance Directives Provider Source Sep 15, 2009 ADVANCE DIRECTIVE DISCUSSION JADE VARMA [facility] Jul 21, 2006 ADVANCE DIRECTIVE [facility] Jul 12, 2006 ADVANCE DIRECTIVE DISCUSSION SAV PAULSON [facility] Allergies and Adverse Reactions (ADRs): All historical and current Section Date Range: From patient's date of to the date document was create d. This section includes Allergies and Adverse Reactions (ADR s) on record with [place] for the patient. The data comes from a ll [place] treatment facilities. It does not list Allergies/ADRs that were removed or entered in error. Some allergies/ADRs may be reported in t he Immunization section. Allergen Event Date Event Type Reaction(s) Severity Source ENALAPRIL Aug 22, 2017 Propensity to adverse reactions to drug (diso rder) [facility] ENALAPRIL May 04, 2007 Propensity to adverse reactions to drug ( disorder) Cough [facility] [place]EV[place]QU[place] Aug 22, 2017 Propensity to adverse reactions to drug (diso rder) [facility] [place] Oct 08, 2015 Propensity to adverse reactions to drug (disorder) Eruption [facility] VISN 15 LISINOPRIL Aug 22, 2017 Propensity to adverse reactions to drug (diso rder) [facility] LISINOPRIL Jan 16, 2007 Propensity to adverse reactions to drug (disorder) Cough [facility] NIACIN Aug 22, 2017 Propensity to adverse reactions to drug (diso rder) [facility] NIAC[place] Oct 23, 2008 Propensity to adverse reactions to drug ( disorder) Eruption [facility], VISN 15 Medications: VA dispensed (-15 months) and Non-VA Documented (Obtained Outside V A) Section Date Range: 1) prescriptions processed by a VA pharmacy in the last 15 m [facility], and 2) all medications recorded in the [place] medical record as "non-VA medic ations". Pharmacy terms refer to [place] pharmacy's work on prescriptions. [place] patient s are advised to take their medications as instructed by their health care team. The data comes from all [place] treatment facilities. Glossary of Pharmacy Terms:Active = A prescription that can be filled at the local [place] pharmacy.Active: On Hold = An active prescription that will not be filled until pharmacy resolves the issue.Active: Susp = An active prescription that is not scheduled to be filled yet.Clinic Order = A medication received during a visit to a [place] clinic or emergency department (currently not available).Discontinued [...] may be a prescription from either the [place] or other providers that was filled outside the [place]. Or, it may be an over the [...] BLOOD GLUCOSE TESTING 50 Jun 06, 2020 [id number] February 21, 2020 [facility] AMLODIPINE BESYLATE 10MG TAB Active TAKE ONE TABLET BY MOUTH EVERY MORNING 90 January 23, 2021 [id number] Jan 23, 2020 SIMON NEELY AMLODIPINE BESYLATE 10MG TAB Discontinued TAKE ONE TA BLET BY MOUTH EVERY MORNING 90 Nov 27, 2019 [id number] Oct 21, 2019 SIMON NEELY ATORVASTATIN CA 20MG TAB Active TAKE ONE-HALF T ABLET BY MOUTH AT BEDTIME FOR CHOLESTEROL - REPORT ANY UNEXPLAINED MUSCLE PAIN/WEAKNESS TO YOUR PROVIDER TAKE IN PLACE OF CRESTOR, [facility] DOESNT SUPPLY CRESTOR, FOR CHOLESTEROL - REPORT ANY UNEXPLAINED MUSCLE PAIN/WEAKNESS TO YOUR PROVIDER TAKE IN PLACE OF CRESTOR, [facility] DOESNT SUPPLY CRESTOR, 45 January 23, 2021 [id number] Jan 23, 2020 HARRISON NEELY ATORVASTATIN CA 20MG TAB Discontinued TAKE ONE-HALF T ABLET BY MOUTH AT BEDTIME FOR CHOLESTEROL - REPORT ANY UNEXPLAINED MUSCLE PAIN/WEAKNESS TO YOUR PROVIDER TAKE IN PLACE OF CRESTOR, [facility] DOESNT SUPPLY CRESTOR, FOR CHOLESTEROL - REPORT ANY UNEXPLAINED MUSCLE PAIN/WEAKNESS TO YOUR PROVIDER TAKE IN PLACE OF CRESTOR, [facility] DOESNT SUPPLY CRESTOR, 45 Dec 07, 2019 [id number] Mar 01, 2019 [facility] BRIEF,SUPER PLUS ABSORB WITH BARRIERS UNDERWEAR X-LARGE ATTE NDS Active USE DIRECTED DIRECTED FOR INCONTINENCE 56 Nov 04, 2020 [id number] Nov 09, 2019 [facility] BRIEF,SUPER PLUS ABSORB WITH BARRIERS UNDERWEAR X-LARGE ATTE NDS Discontinued USE DIRECTED DIRECTED FOR INCONTINENCE 56 Apr 01, 2020 [id number] Aug 06, 2019 SIMON NEELY GLIPIZIDE 5MG TAB Active TAKE ONE TABLET BY M OUTH EVERY DAY BEFORE BREAKFAST FOR DIABETES. TAKE 30 MINUTES BEFORE EATING. 90 Apr 22, 2020 [id number] February 12, 2020 SIMON NEELY GLIPIZIDE 5MG TAB Discontinued TAKE ONE TABLET BY M OUTH EVERY DAY BEFORE BREAKFAST FOR DIABETES. TAKE 30 MINUTES BEFORE EATING. 90 Feb 242019 [id number] February 12, 2020 SIMON NEELY GLIPIZIDE 5MG TAB Discontinued TAKE ONE TABLET BY M OUTH EVERY DAY BEFORE BREAKFAST FOR DIABETES. TAKE 30 MINUTES BEFORE EATING. 90 January [id number] Nov 24, 2019 SIMON NEELY GLIPIZIDE 5MG TAB Discontinued TAKE ONE TABLET BY M OUTH EVERY DAY BEFORE BREAKFAST FOR DIABETES. TAKE 30 MINUTES BEFORE EATING. 90 Nov [id number] Sep 05, 2019 SIMON NEELY LANCET,SOFTCLIX Active USE LANCET BIW FOR TESTING BL OOD GLUCOSE DIRECTED 100 Jun 06, 2020 [id number] Jun 07, 2019 SIMON NEELY [facility] LITHIUM CARBONATE 300MG CAP Active TAKE 1 CAPSU LE BY MOUTH EVERY MORNING AND TAKE 3 CAPSULES BY MOUTH AT BEDTIME FOR MOOD. MUST MAKE AN APPT OR WILL TAPER AND DISCONTINUE MEDICATIONS 120 February 12, 2021 [id number] Mar 04, 2020 [facility] LITHI[facility] CARBONATE 300MG CAP Discontinued TAKE 1 CAPSU LE BY MOUTH EVERY MORNING AND TAKE 3 CAPSULES BY MOUTH AT BEDTIME FOR MOOD. MUST MAKE AN APPT OR WILL TAPER AND DISCONTINUE MEDICATIONS 120 Aug 06, 2020 [id number] Dec 16, 2019 KANG ZAYAS [facility] LITHIUM CARBONATE 300MG CAP Discontinued TAKE 1 CAPSU LE BY MOUTH EVERY MORNING AND TAKE 3 CAPSULES BY MOUTH AT BEDTIME FOR MOOD. MUST MAKE AN APPT OR WILL TAPER AND DISCONTINUE MEDICATIONS 120 Jun 10, 2020 [id number] Jul 19, 2019 [facility] LITHIUM CARBONATE 300MG CAP Discontinued TAKE 1 CAPSU LE BY MOUTH EVERY MORNING AND TAKE 3 CAPSULES BY MOUTH AT BEDTIME FOR MOOD. MUST MAKE AN APPT OR WILL TAPER AND DISCONTINUE MEDICATIONS 120 Jul 03, 2019 [id number] Jun 03, 2019 [facility] LITHIUM CARBONATE 300MG CAP Discontinued TAKE 1 CAPSU LE BY MOUTH EVERY MORNING AND TAKE 3 CAPSULES BY MOUTH AT BEDTIME FOR MOOD. MUST MAKE AN APPT OR WILL TAPER AND DISCONTINUE MEDICATIONS 120 Mar 23, 2019 [id number] February 21, 2019 [facility] LITHIUM CARBONATE 300MG CAP Discontinued TAKE 1 CAPSU LE BY MOUTH EVERY MORNING AND TAKE 3 CAPSULES BY MOUTH AT BEDTIME FOR MOOD. 120 Dec 18, 2019 [id number] Jan 11, 2019 [facility] LITHIUM CARBONATE 300MG TAB,SA Discontinued [...] SPLIT, OR CHEW. 234 May 31, 2019 [id number] Apr 01, 2019 KIMBERLY BANG [facility] NO KNOWN NON-VA MEDS MISCELLANEOUS Non-VA Non-VA Documented by: MICHELLE BARTHOLOMEW Docume nted at: [facility] NO KNOWN NON-VA MEDS MISCELLANEOUS Non-VA Non-VA Documented by: GALILEA BENÍTEZ Docume nted at: [facility] OXYCODONE HCL 5MG TAB No n-VA TAKE ONE TABLET BY MOUTH EVERY 6 HOURS NEEDED Non-VA Docume nted by: SIMON NEELY Docume nted at: [facility] QUETIAPINE FUMARATE 100MG TAB Active TAKE ONE-HALF TABL ET BY MOUTH AT BEDTIME 15 Mar 25, 2021 [id number] Mar 24, 2020 ELOISE HUYNH [facility] TRAMADOL HCL 50MG TAB No n-VA TAKE ONE TABLET BY MOUTH EVERY 6 HOURS NEEDED Non-VA Docume nted by: SIMON NEELY Docume nted at: [facility] TRAZODONE HCL 100MG TAB Discontinued TAKE FOUR TABLET S BY MOUTH AT BEDTIME FOR MOOD OR SLEEP. 120 February 12, 2021 [id number] Mar 01, 2020 ELOISE HUYNH [facility] TRAZODONE HCL 100MG TAB Discontinued TAKE FOUR TABLET S BY MOUTH AT BEDTIME FOR MOOD OR SLEEP. 120 Aug 06, 2020 [id number] February 10, 2020 [facility] TRAZODONE HCL 100MG TAB Discontinued TAKE FOUR TABLET S BY MOUTH AT BEDTIME FOR MOOD OR SLEEP. 120 Jun 03, 2020 [id number] Jul 29, 2019 KIMBERLY BANG [facility] TRAZODONE HCL 100MG TAB Discontinued TAKE FOUR TABLET S BY MOUTH AT BEDTIME FOR MOOD OR SLEEP. 120 February 05, 2020 [id number] May 06, 2019 KIMBERLY BANG [facility] TRAZODONE HCL 100MG TAB Discontinued TAKE FOUR TABLET S BY MOUTH AT BEDTIME FOR MOOD OR SLEEP. 120 Sep 14, 2019 [id number] Jan 07, 2019 [facility] TROSPIUM CL 20MG TAB Active TAKE ONE TABLET BY MOUTH TWO TIMES A DAY FOR BLADDER. TAKE ON AN EMPTY STOMACH OR AT LEAST ONE HOUR BEFORE FOOD. PER DR. BUTLER 180 January 23, 2021 [id number] Mar 16, 2020 SIMON NEELY ONS [facility] TROSPIUM CL 20MG TAB Discontinued TAKE ONE TABLET BY MOUTH TWO TIMES A DAY FOR BLADDER. TAKE ON AN EMPTY STOMACH OR AT LEAST ONE HOUR BEFORE FOOD. PER DR. BUTLER 180 Apr 01, 2020 [id number] Dec 17, 2019 SIMON NEELY ONS [facility] VENLAFAXINE HCL 75MG 24HR CAP,SA Active TAKE 3 CAPSULES BY MOUTH ONCE A DAY FOR MOOD. TAKE WITH FOOD. 90 February 12, 2021 [id number] Mar 04, 2020 Arlette HUYNH [facility] VENLAFAXINE HCL 75MG 24HR CAP,SA Discontinued TAKE 3 CAPSULES BY MOUTH ONCE A DAY FOR MOOD. TAKE WITH FOOD. 90 Aug 06, 2020 [id number] Jan 05 0 KANG ZAYAS [facility] VENLAFAXINE HCL 75MG 24HR CAP,SA Discontinued TAKE 3 CAPSULES BY MOUTH ONCE A DAY FOR MOOD. TAKE WITH FOOD. 90 Aug 28, 2019 [id number] Aug 01 9 [facility] VENLAFAXINE HCL 75MG 24HR CAP,SA Discontinued TAKE 3 CAPSULES BY MOUTH ONCE A DAY FOR MOOD. TAKE WITH FOOD. 90 February 05, 2020 [id number] Jul 01 9 [facility] Problems (Conditions): All historical and current Section Date Range: From patient's date of to the date document was create d. This section includes a list of Problems (Conditions) know n to [place] for the [place]. It includes both active and inacti ve problems (conditions). The data comes from all [place] treatment facilities. Problem Status Problem Code Date of Onset Date of Resolution Comm ent(s) Provider Source Abnormality of Gait (ICD-9-CM 781.2) Active 781.2 GALILEA BENÍTEZ [facility] Achilles bursitis or tendinitis (ICD-9-CM 726.71) Active 726.71 RILEY GALVAN [facility] Acquired right hallux valgus Active [id number] RILEY GALVAN [facility] Ankle ulcer due to type 2 diabetes mellitus ([place] [address] 418173195) Active [id number] SIMON NEELY [facility] Bereavement (SNOMED CT 71718611) Active V62.89 SIMON NEELY [facility] Bilateral plantar fasciitis (SNOMED CT [id number]) Ac tive [id number] RILEY GALVAN [facility] BIPOLAR AFFECTIVE NOS Active 296.7 DEMETRA UREÑA [facility] Bipolar disorder (SNOMED CT 45316439) Active [id number] [facility] Bunion Active 727.1 MONICA MADDOX [facility] Carpal Tunnel Syndrome * (ICD-9-CM 354.0) Active 354.0 Oct 16, 2002 Entered By: GALILEA BENÍTEZ Comment: rt GALILEA BENÍTEZ [facility] Cerebral Palsy NEC (ICD-9-CM 343.8) Active 343.8 SEPIDEH NELSON [facility] Depression * (ICD-9-CM 311./300.4) Active 311. SIMON NEELY [facility] Derangement of meniscus Active 717.5 J an 2001 Entered By: DEMETRA UREÑA Comment: left knee, arthroscopy 11/23 DEMETRA UREÑA [facility] Diabetes mellitus (SNOMED CT 39135417) Active 24661298 SIMON NEELY [facility] Difficulty balancing Active 608358446 HARRISON NEELY [facility] Elevated Liver Function Tests (ICD-9-CM 794.8) Active 794.8 SIMON NEELY [facility] Enthesopathy of ankle and tarsus (ICD-9-CM 726.70/726.79) Active 72 6.70 BECCA JONES [facility] Flat foot Active 734. [facility] GERD * (ICD-9-CM 530.81) Active 530.81 SIMON NEELY [facility] Hip Pain (ICD-9-CM 719.45) Active 719.45 [facility] Hyperkeratosis Active 701.1 [facility] Hyperlipidemia * (ICD-9-CM 272.4) Active 272.4 [facility] Hypertension * (ICD-9-CM 401.9) Active 401.9 ERNESTINA BENÍTEZE Demarco [facility] Hypertension * (ICD-9-CM 401.9) Active 401.9 [facility] Insomnia * (ICD-9-CM 780.52) Active 780.52 [facility]AS [facility] Joint Pain Forearm Active 719.43 [facility] Lower Leg Injury NOS Active 959.7 [facility] Morbid Obesity * (ICD-9-CM 278.01) Active 278.01 DARION YOUNG [facility] Obesity * (ICD-9-CM 278.00) Active 278.00 GALILEA WEST [facility] Onychomycosis (SNOMED CT 381163754) Active 110.1 [facility] Osteoarthosis Shoulder Active 715.91 VERNELL GUZMAN [facility] Pain in joint involving shoulder region (ICD-9-CM 719.41) Active 71 9.41 SIMON NEELY [facility] Routine Gynecological examination Active V72.31 SIMON NEELY [facility] Sciatica * (ICD-9-CM 724.3) Active 724.3 SIMON CAMP JUAN [facility] Unspecified chest pain * (ICD-9-CM 786.50) Active 786.50 MARK VIVAS [facility] Unsteady when walking Active 60218999 HARRISON NEEYL DARION MARTINEZ [facility] Urinary Incontinence * (ICD-9-CM 788.30) Active 788.30 JJ GAYTAN [facility] MUSCLE SPASM Inactive 728.85 May 29, 2007 Sep 02 Entered By: TONY BENÍTEZ Comment: shoulders TONY BENÍTEZ [facility] Radiology Reports: +/- 30 days of the encounter No Data Provided for This Section Pathology Reports: +/- 30 days of the encounter No Data Provided for This Section Encounter Notes: All associated encounter notes This section contains the clinical notes associated to the Encounter. Date/Time Encounter Note(s) Provider Source May 29, 2019 04:42 PM MENTAL HEALTH TELEPHONE ENCO UNTER NOTE: LOCAL TITLE: [facility] PHONE [facility] STANDARD TITLE: MENTAL HEALTH TELEPHONE ENCOUNTER NOTE DATE OF NOTE: MAY 29, 2019@16:42 ENTRY DATE: MAY 29, 2019@16:42:11 AUTHOR: EMBER JARVIS EXP COSIGNER: URGENCY: STATUS: COMPLETED [facility] PH[facility] Has ADDENDA Called to provide the following information - '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 Request [facility] RN call and direct her to lab as directed at 04/01 appointment, I am holding on refills until labs completed due to risks involved with not monitoring lithium level. I will reorder labs only at this time.' verbalizes understanding and states she will do lab work and then notify this content writer so her medications can be ordered. /abhinav JARVIS R.N. Signed: 05/29/2019 16:45 Receipt Acknowledged By: 05/30/2019 13:19 /EDU Crump ED, APRN, BC 05/30/2019 ADDENDUM STATUS: COMPLETED Clarification,I will only renew medications after pt has completed reordered lithium labs. She needs to hold AM lithium on day of lab draw(if that is her normal procedure) /EDU Lopez APRN, BC Signed: 05/30/2019 13:22 Receipt Acknowledged By: 06/03/2019 10:06 /es/ EMBER AGUILAR R.N. 05/31/2019 ADDENDUM STATUS: COMPLETED Per [facility] lab completed. /es/ EMBER JARVIS R.N. Signed: 05/31/2019 10:43 Receipt Acknowledged By: 06/03/2019 10:10 /es/ VAL SCHAEFFERR MEDICAL IMAGING TECHNOLOGIST,SPEECH CLINICIAN,BC 05/31/2019 15:28 /es/ LEONIDAS PIERRE M.D. STAFF PSYCHIATRIST 05/31/2019 ADDENDUM STATUS: COMPLETED needs to get scheduled with a new medication provider. /es/ LEONIDAS FINLEY M.D. STAFF PSYCHIATRIST Signed: 05/31/2019 15:27 Receipt Acknowledged By: 06/03/2019 09:54 /es/ EMBER AGUILAR R.N. 05/31/2019 ADDENDUM STATUS: COMPLETED Per Provider needs to get scheduled with a new medication provider. /susie/ EMBER JARVIS RpAollo Signed: 05/31/2019 16:19 Receipt Acknowledged By: 06/03/2019 12:09 /es/ WILL ROGERS [facility]IMARY [facility] EMBER JARVIS [facility]
--- OUTSIDE RECORDS SUMMARY | 2020-03-28 08:24 | XMS REPORT | Encounter Summary ---
Author Author Department of [facility] center[facility]A Organization Department of [facility] Affai Address [address] [place] [address] Phone Unavailable Care Team Providers Care Population Health Manager Name Role Phone FLORINDASIMON PCP Unavailable Insurance [...] PART A Aug 25, 2011 PART A [id number] GADBERRY,CHARLANNE PATIENT MEDICARE (WNR) MEDICARE (M) PART B Aug 25, 2011 PART B [id number] GADBERRY,CHARLANNE PATIENT MEDICARE (WNR) MEDICARE (M) PART A Aug 25, 2011 PART A [id number] GADBERRY,CHARLANNE PATIENT MEDICARE (WNR) MEDICARE (M) PART B Aug 25, 2011 PART B [id number] GADBERRY,CHARLANNE PATIENT MEDICARE (WNR) MEDICARE (M) PART A Aug 25, 2011 PART A [id number] SANDRA MORELOS PATIENT MEDICARE (WNR) MEDICARE (M) PART B Aug 25, 2011 PART B [id number] [phone] SANDRA MORELOS PATIENT MEDICARE PART D (WNR) MEDICARE (M) PART D Sep 25, 2012 PART D [id number] SANDRA WHITMAN PATIENT Selected Encounter This section includes the information on record at OR for the Encounter. Date/Time Encounter Type Encounter Description Reason Provider Source May 28, 2019 09:51 AM Outpatient Encounter ADMIN PAT ACTIVTIES (LALI WATT) [facility] Encounter Template Text not used by OR Assessments - Encounter Diagnoses No Data Provided for This Section Plan of Treatment: Future Appointments (+ 6 months) and Future Tests (+/- 45 day s) The Plan of Treatment section includes future care activities for the patient fr om all OR treatment facilities. This section includes future appointments and fu ture orders which are active, pending or scheduled. Future Appointments This section includes appointments that were scheduled t o occur 6 months from the date of the Encounter, up to a maximum of 20 appointme nts. The data comes from all OR treatment [facility]. Appointment Date/Time Appointment Type Appointment Facili ty Name May 30, 2019 11:15 AM AMBULATORY - NONE [facility] Aug 06, 2019 02:00 PM AMBULATORY - PSYCHIATRY DARION Jose Roberto [facility] Aug 06, 2019 02:01 PM AMBULATORY - PSYCHIATRY [facility] Oct 09, 2019 09:30 AM AMBULATORY - NONE [facility] Nov 06, 2019 02:00 PM AMB[place]ORY [place] [facility] Nov 06, 2019 02:01 PM AMBULATORY - PSYCHIATRY [facility] Active, Pending, and Scheduled Orders This section [...] the Encounter. The data comes from all OR treatment [facility]. Test Date/Time Test Type Test Details Facility Name Apr 15, 2019 06:00 AM Laboratory - Chemistry Order COMPREHEN SIVE METABOLIC PANEL GREEN TOP TUBE PLASMA SP [facility] Apr 15, 2019 06:00 AM Laboratory - Chemistry Order LITHIUM R ED/GOLD SERUM SP ~For Test: LITHIUM ~Dose is expected to be at &TROUGH level. [facility] Surgical Procedures: All associated to the encounter No Data Provided for This Section Lab Results: +/- 30 days of the encounter This section includes the Chemistry and Hematology Lab R esults on record with OR for the patient. Radiology Reports and Pathology Report s are provided separately, in subsequent sections. Lab Results This section contains the Chemistry/Hematology Results douglas t were resulted 30 days before or 30 days after the date of the Encounter. Date/Time Source Result Type Result - Unit Interpretation Reference Range Comment May 30, 2019 11:20 AM DARION MARTINEZ [facility] COMPREHENSIVE METABOLI C PANEL Specimen Type: PLASMA [...] May 30, 2019 11:20 AM DARION MARTINEZ [facility] LITHIUM Specimen Type: SERUM Comment: ~For Test: LITHIUM ~Dose is expected to be at &TROUGH level. LITHIUM 0.7 mmol/L 0.6-1.2 May 30, 2019 11:20 AM [facility] HEMOGLOBIN A1C Specimen Type: BLOOD No comment [...] and tobacco- related health factors from the OR facility where the Encounter took place. Current Smoking Status This section includes the most current smoking, or tobacco -related health factor, from the OR facility where the Encounter took place. Date/Time Current Smoking Status Comment Facility Dec 28, 2015 10:28 AM CURRENT NON-SMOKER DARION Jose Roberto [facility] Tobacco Use History This section includes a history of the smoking, or tobacco -related health factors, that were collected on or before the date of the Encoun ter. The data comes from the OR facility where the Encounter took place. Date/Time Smoking Status/Tobacco Use Comment Facil ity Dec 28, 2015 10:28 AM LIFETIME NON-TOBACCO USER DARION Cid [facility] May 14, 2015 10:33 AM CURRENT NON-SMOKER DARION Jose Roberto [facility] May 14, 2015 10:33 AM LIFETIME NON-TOBACCO USER [place] Jose Roberto [facility] Dec 08, 2014 10:25 AM CURRENT NON-SMOKER [place] Jose Roberto [facility] Dec 08, 2014 10:25 AM LIFETIME NON-TOBACCO USER [place] Jose Roberto [facility] Oct 20, 2014 09:33 AM CURRENT NON-SMOKER [place] Jose Roberto [facility] Oct 20, 2014 09:33 AM LIFETIME NON-TOBACCO USER DARION Jose Roberto [facility] Jul 22, 2014 09:41 AM CURRENT NON-SMOKER DARION Jose Roberto [facility] Jul 22, 2014 09:41 AM LIFETIME NON-TOBACCO USER DARION Cid [facility] February 04, 2014 10:04 AM NON-TOBACCO USER DARION MARTINEZ [facility] Dec 16, 2013 11:26 AM CURRENT NON-SMOKER DARION Cid [facility] Dec 16, 2013 11:26 AM LIFETIME NON-TOBACCO USER DARION Cid [facility] Jan 14, 2013 01:14 PM CURRENT NON-SMOKER DARION Cid [facility] Jan 14, 2013 01:14 PM LIFETIME NON-TOBACCO USER DARION Cid [facility] February 14, 2012 09:57 AM CURRENT NON-SMOKER DARION Cid [facility] February 14, 2012 09:57 AM LIFETIME NON-TOBACCO USER DARION Cid [facility] Mar 14, 2011 01:13 PM CURRENT NON-SMOKER DARION Cid [facility] Mar 14, 2011 01:13 PM LIFETIME NON-TOBACCO USER DARION Cid [facility] Apr 15, 2010 09:39 AM CURRENT NON-SMOKER DARION Jose Roberto [facility] Apr 15, 2010 09:39 AM LIFETIME NON-TOBACCO USER DARION Cid [facility] Mar 09, 2010 02:30 PM CURRENT NON-SMOKER DARION MARTINEZ [facility] Mar 09, 2010 02:30 PM LIFETIME NON-TOBACCO USER DARION MARTINEZ [facility] Nov 06, 2009 10:50 AM CURRENT NON-SMOKER DARION MARTINEZ [facility] Nov 06, 2009 10:50 AM LIFETIME NON-TOBACCO USER DARION MARTINEZ [facility] Advance Directives: All historical and current Section Date Range: From patient's date of to the date document was create d. This section includes ALL of a patient's completed or amen ded OR Advance and Rescinded Directives. The entries below indicate that a direc tive exists for the patient, but an actual copy is not included with this docume nt. The data comes from all OR facilities. Date Advance Directives Provider Source Sep 15, 2009 ADVANCE DIRECTIVE DISCUSSION JADE VARMA [facility] Jul 21, 2006 ADVANCE DIRECTIVE [facility] Jul 12, 2006 ADVANCE DIRECTIVE DISCUSSION [facility] Allergies and Adverse Reactions (ADRs): All historical and current Section Date Range: From patient's date of to the date document was create d. This section includes Allergies and Adverse Reactions (ADR s) on record with OR for the patient. The data comes from a ll OR treatment facilities. It does not list Allergies/ADRs that were removed or entered in error. Some allergies/ADRs may be reported in t he Immunization section. Allergen Event Date Event Type Reaction(s) Severity Source ENAL[facility]RIL Aug 22, 2017 Propensity to adverse reactions to drug (diso rder) [facility] May 04, 2007 Propensity to adverse reactions to drug ( disorder) Cough [facility] LEVAQU[place] Aug 22, 2017 Propensity to adverse reactions to drug (diso rder) [facility] Oct 08, 2015 Propensity to adverse reactions to drug (disorder) Eruption [facility] [place] Aug 22, 2017 Propensity to adverse reactions to drug (diso rder) [facility] LIS[facility] Jan 16, 2007 Propensity to adverse reactions to drug (disorder) Cough [facility] NIACIN Aug 22, 2017 Propensity to adverse reactions to drug (diso rder) [facility] NIAC[facility] Oct 23, 2008 Propensity to adverse reactions to drug ( disorder) [facility] Medications: VA dispensed (-15 months) and Non-VA Documented (Obtained Outside V A) Section Date Range: 1) prescriptions processed by a VA pharmacy in the last 15 m [facility], and 2) all medications recorded in the VA medical record as "non-VA medic ations". Pharmacy terms refer to VA pharmacy's work on prescriptions. VA patient s are advised to take their medications as instructed by their health care team. The data comes from all OR treatment facilities. Glossary of Pharmacy Terms:Active = A prescription that can be filled at the local VA pharmacy.Active: On Hold = An active prescription that will not be filled until pharmacy resolves the issue.Active: Susp = An active prescription that is not scheduled to be filled yet.Clinic Order = A medication received during a visit to a OR clinic or emergency department (currently not available).Discontinued [...] BLOOD GLUCOSE TESTING 50 Jun 06, 2020 [id number] February 21, 2020 SIMON NEELY AMLODIPINE BESYLATE 10MG TAB Active TAKE ONE TABLET BY MOUTH EVERY MORNING 90 January 23, 2021 [id number] Jan 23, 2020 SIMON NEELY AMLODIPINE BESYLATE 10MG TAB Discontinued TAKE ONE TA BLET BY MOUTH EVERY MORNING 90 Nov 27, 2019 [id number] Oct 21, 2019 SIMON NEELY ATORVASTATIN CA 20MG TAB Active TAKE ONE-HALF T ABLET BY MOUTH AT BEDTIME FOR CHOLESTEROL - REPORT ANY UNEXPLAINED MUSCLE PAIN/WEAKNESS TO YOUR PROVIDER TAKE IN PLACE OF CRESTOR, OR DOESNT SUPPLY CRESTOR, FOR CHOLESTEROL - REPORT ANY UNEXPLAINED MUSCLE PAIN/WEAKNESS TO YOUR PROVIDER TAKE IN PLACE OF CRESTOR, VA DOESNT SUPPLY CRESTOR, 45 January 23, 2021 [id number] Jan 23, 2020 HARRISON NEELY ATORVASTATIN CA 20MG TAB Discontinued TAKE ONE-HALF T ABLET BY MOUTH AT BEDTIME FOR CHOLESTEROL - REPORT ANY UNEXPLAINED MUSCLE PAIN/WEAKNESS TO YOUR PROVIDER TAKE IN PLACE OF CRESTOR, VA DOESNT SUPPLY CRESTOR, FOR CHOLESTEROL - REPORT ANY UNEXPLAINED MUSCLE PAIN/WEAKNESS TO YOUR PROVIDER TAKE IN PLACE OF CRESTOR, VA DOESNT SUPPLY CRESTOR, 45 Dec 07, 2019 [id number] Mar 01, 2019 HARRISON NEELY BRIEF,SUPER PLUS ABSORB WITH BARRIERS UNDERWEAR X-LARGE ATTE NDS Active USE DIRECTED DIRECTED FOR INCONTINENCE 56 Nov 04, 2020 [id number] Nov 09, 2019 SIMON NEELY BRIEF,SUPER PLUS ABSORB WITH BARRIERS UNDERWEAR X-LARGE ATTE NDS Discontinued USE DIRECTED DIRECTED FOR INCONTINENCE 56 Apr 01, 2020 [id number] Aug 06, 2019 SIMON NEELY GLIPIZIDE 5MG TAB Active TAKE ONE TABLET BY M OUTH EVERY DAY BEFORE BREAKFAST FOR DIABETES. TAKE 30 MINUTES BEFORE EATING. 90 Apr 22, 2020 [id number] February 12, 2020 SIMON NEELY GLIPIZIDE 5MG TAB Discontinued TAKE ONE TABLET BY M OUTH EVERY DAY BEFORE BREAKFAST FOR DIABETES. TAKE 30 MINUTES BEFORE EATING. 90 Feb 242019 [id number] February 12, 2020 SIMON NEELY GLIPIZIDE 5MG TAB Discontinued TAKE ONE TABLET BY M OUTH EVERY DAY BEFORE BREAKFAST FOR DIABETES. TAKE 30 MINUTES BEFORE EATING. 90 January [id number] Nov 24, 2019 SIMON NEELY GLIPIZIDE 5MG TAB Discontinued TAKE ONE TABLET BY M OUTH EVERY DAY BEFORE BREAKFAST FOR DIABETES. TAKE 30 MINUTES BEFORE EATING. 90 Nov [id number] Sep 05, 2019 SIMON NEELY LANCET,SOFTCLIX Active USE LANCET BIW FOR TESTING BL OOD GLUCOSE DIRECTED 100 Jun 06, 2020 [id number] Jun 07, 2019 SIMON NEELY C LITHIUM CARBONATE 300MG CAP Active TAKE 1 CAPSU LE BY MOUTH EVERY MORNING AND TAKE 3 CAPSULES BY MOUTH AT BEDTIME FOR MOOD. MUST MAKE AN APPT OR WILL TAPER AND DISCONTINUE MEDICATIONS 120 February 12, 2021 [id number] Mar 04, 2020 [facility]ISE [facility]NH [facility] LITHIUM CARBONATE 300MG CAP Discontinued TAKE 1 CAPSU LE BY MOUTH EVERY MORNING AND TAKE 3 CAPSULES BY MOUTH AT BEDTIME FOR MOOD. MUST MAKE AN APPT OR WILL TAPER AND DISCONTINUE MEDICATIONS 120 Aug 06, 2020 [id number] Dec 16, 2019 KANG [facility]AS [facility] LITHIUM CARBONATE 300MG CAP Discontinued TAKE 1 CAPSU LE BY MOUTH EVERY MORNING AND TAKE 3 CAPSULES BY MOUTH AT BEDTIME FOR MOOD. MUST MAKE AN APPT OR WILL TAPER AND DISCONTINUE MEDICATIONS 120 Jun 10, 2020 [id number] Jul 19, 2019 KIMBERLY TARIQ [facility] LITHIUM CARBONATE 300MG CAP Discontinued TAKE 1 CAPSU LE BY MOUTH EVERY MORNING AND TAKE 3 CAPSULES BY MOUTH AT BEDTIME FOR MOOD. MUST MAKE AN APPT OR WILL TAPER AND DISCONTINUE MEDICATIONS 120 Jul 03, 2019 [id number] Jun 03, 2019 KIMBERLY TARIQ [facility] LITHIUM CARBONATE 300MG CAP Discontinued TAKE 1 CAPSU LE BY MOUTH EVERY MORNING AND TAKE 3 CAPSULES BY MOUTH AT BEDTIME FOR MOOD. MUST MAKE AN APPT OR WILL TAPER AND DISCONTINUE MEDICATIONS 120 Mar 23, 2019 [id number] February 21, 2019 KIMBERLY TARIQ [facility] LITHIUM CARBONATE 300MG CAP Discontinued TAKE 1 CAPSU LE BY MOUTH EVERY MORNING AND TAKE 3 CAPSULES BY MOUTH AT BEDTIME FOR MOOD. 120 Dec 18, 2019 [id number] Jan 11, 2019 [facility]LY BANG [facility] LITHIUM CARBONATE 300MG TAB,SA [...] SPLIT, OR CHEW. 234 May 31, 2019 [id number] Apr 01, 2019 [facility] NO KNOWN NON-VA MEDS MISCELLANEOUS Non-VA Non-VA Documented by: MICHELLE BARTHOLOMEW Docume nted at: [facility] NO KNOWN NON-VA MEDS MISCELLANEOUS Non-VA Non-VA Documented by: GALILEA BENÍTEZ Docume nted at: [facility] OXYCODONE HCL 5MG TAB No n-VA TAKE ONE TABLET BY MOUTH EVERY 6 HOURS NEEDED Non-VA Docume nted by: SIMON NEELY Docume nted at: [facility] QUETIAPINE FUMARATE 100MG TAB Active TAKE ONE-HALF TABL ET BY MOUTH AT BEDTIME 15 Mar 25, 2021 [id number] Mar 24, 2020 JASSONTNELOISE [facility] TRAMADOL HCL 50MG TAB No n-VA TAKE ONE TABLET BY MOUTH EVERY 6 HOURS NEEDED Non-VA Docume nted by: SIMON NEELY Docume nted at: [facility] TRAZODONE HCL 100MG TAB Discontinued TAKE FOUR TABLET S BY MOUTH AT BEDTIME FOR MOOD OR SLEEP. 120 February 12, 2021 [id number] Mar 01, 2020 ELOISE HUYNH [facility] TRAZODONE HCL 100MG TAB Discontinued TAKE FOUR TABLET S BY MOUTH AT BEDTIME FOR MOOD OR SLEEP. 120 Aug 06, 2020 [id number] February 10, 2020 KANG [facility]AYAS [facility] TRAZODONE HCL 100MG TAB Discontinued TAKE FOUR TABLET S BY MOUTH AT BEDTIME FOR MOOD OR SLEEP. 120 Jun 03, 2020 [id number] Jul 29, 2019 KIMBERLY BANG [facility] TRAZODONE HCL 100MG TAB Discontinued TAKE FOUR TABLET S BY MOUTH AT BEDTIME FOR MOOD OR SLEEP. 120 February 05, 2020 [id number] May 06, 2019 [facility]IMBERLY BANG [facility] TRAZODONE HCL 100MG TAB Discontinued TAKE FOUR TABLET S BY MOUTH AT BEDTIME FOR MOOD OR SLEEP. 120 Sep 14, 2019 [id number] Jan 07, 2019 KIMBERLY BANG [facility] TROSPIUM CL 20MG TAB Active TAKE ONE TABLET BY MOUTH TWO TIMES A DAY FOR BLADDER. TAKE ON AN EMPTY STOMACH OR AT LEAST ONE HOUR BEFORE FOOD. PER DR. BUTLER 180 January 23, 2021 [id number] Mar 16, 2020 SIMON NEELY [facility] TROSPIUM CL 20MG TAB Discontinued TAKE ONE TABLET BY MOUTH TWO TIMES A DAY FOR BLADDER. TAKE ON AN EMPTY STOMACH OR AT LEAST ONE HOUR BEFORE FOOD. PER DR. BUTLER 180 Apr 01, 2020 [id number] Dec 17, 2019 SIMON NEELY [facility] VENLAFAXINE HCL 75MG 24HR CAP,SA Active TAKE 3 CAPSULES BY MOUTH ONCE A DAY FOR MOOD. TAKE WITH FOOD. February 12, 2021 [id number] Mar 04, 2020 Arlette HUYNH [facility] VENLAFAXINE HCL 75MG 24HR CAP,SA Discontinued TAKE 3 CAPSULES BY MOUTH ONCE A DAY FOR MOOD. TAKE WITH FOOD. Aug 06, 2020 [id number] Jan 05 0 KANG ZAYAS [facility] VENLAFAXINE HCL 75MG 24HR CAP,SA Discontinued TAKE 3 CAPSULES BY MOUTH ONCE A DAY FOR MOOD. TAKE WITH FOOD. Aug 28, 2019 [id number] Aug 01 9 KIMBERLY TARIQ [facility] VENLAFAXINE HCL 75MG 24HR CAP,SA Discontinued TAKE 3 CAPSULES BY MOUTH ONCE A DAY FOR MOOD. TAKE WITH FOOD. February 05, 2020 [id number] Jul 01 9 KIMBERLY TARIQ [facility] Problems (Conditions): All historical and current Section Date Range: From patient's date of to the date document was create d. This section includes a list of Problems (Conditions) know n to OR for the patient. It includes both active and inacti ve problems (conditions). The data comes from all OR treatment facilities. Problem Status Problem Code Date of Onset Date of Resolution Comm ent(s) Provider Source Abnormality of Gait (ICD-9-CM 781.2) Active 781.2 [address] [facility] Achilles bursitis or tendinitis (ICD-9-CM 726.71) Active 726.71 RILEY GALVAN [facility] Acquired right hallux valgus Active [id number] RILEY GALVAN [facility] Ankle ulcer due to type 2 diabetes mellitus ([place] [address] [id number]) Active 17286847589518 SIMON NEELY [facility] Bereavement (SNOMED CT 91376253) Active V62.89 SIMON NEELY [facility] Bilateral plantar fasciitis (SNOMED CT [id number]) Ac tive [id number] RILEY GALVAN [facility] BIPOLAR AFFECTIVE NOS Active 296.7 DEMETRA UREÑA [facility] Bipolar disorder (SNOMED CT 30930750) Active 47076365 KIMBERLY BANG [facility] Bunion Active 727.1 MONICA MADDOX [facility] Carpal Tunnel Syndrome * (ICD-9-CM 354.0) Active 354.0 Oct 16, 2002 Entered By: GALILEA BENÍTEZ Comment: rt GALILEA BENÍTEZ [facility] Cerebral Palsy NEC (ICD-9-CM 343.8) Active 343.8 SEIPDEH NELSON [facility] Depression * (ICD-9-CM 311./300.4) Active 311. SIMON NEELY [facility] Derangement of meniscus Active 717.5 J an 2001 Entered By: DEMETRA UREÑA Comment: left knee, arthroscopy 11/23 [facility] Diabetes mellitus (SNOMED CT 15754528) Active 56901091 SIMON NEELY [facility] Difficulty balancing Active 698268253 HARRISON NEELY [facility] Elevated Liver Function Tests (ICD-9-CM 794.8) Active 794.8 SIMON NEELY [facility] Enthesopathy of ankle and tarsus (ICD-9-CM 726.70/726.79) Active 72 6.70 BECCA JONES [facility] Flat foot Active 734. MONICA MADDOX [facility] GERD * (ICD-9-CM 530.81) Active 530.81 SIMON NEELY [facility] Hip Pain (ICD-9-CM 719.45) Active 719.45 [facility]A [facility] Hyperkeratosis Active 701.1 MONICA MADDOX [facility] Hyperlipidemia * (ICD-9-CM 272.4) Active 272.4 SIMON NEELY [facility] Hypertension * (ICD-9-CM 401.9) Active 401.9 GALILEA BENÍTEZ [facility] Hypertension * (ICD-9-CM 401.9) Active 401.9 [facility] Insomnia * (ICD-9-CM 780.52) Active 780.52 SIMON THOMAS [facility] Joint Pain Forearm Active 719.43 [facility] Lower Leg Injury NOS Active 959.7 SHARRI GUZMAN [facility] Morbid Obesity * (ICD-9-CM 278.01) Active 278.01 DARION YOUNG [facility] [facility] Obesity * (ICD-9-CM 278.00) Active 278.00 GALILEA WEST [facility] Onychomycosis (SNOMED CT 733465694) Active 110.1 [facility] Osteoarthosis Shoulder Active 715.91 VERNELL GUZMAN [facility] Pain in joint involving shoulder region (ICD-9-CM 719.41) Active 71 9.41 [facility] Routine Gynecological examination Active V72.31 [facility] Sciatica * (ICD-9-CM 724.3) Active 724.3 SIMON CAMP [facility] Unspecified chest pain * (ICD-9-CM 786.50) Active 786.50 MARK VIVAS [facility] Unsteady when walking Active 80520790 [facility] Urinary Incontinence * (ICD-9-CM 788.30) Active 788.30 JJ GAYTAN [facility] MUSCLE SPASM Inactive 728.85 May 29, 2007 Sep 02 Entered By: TONY BENÍTEZ Comment: TONY Bazzi [facility] Radiology Reports: +/- 30 days of the encounter No Data Provided for This Section Pathology Reports: +/- 30 days of the encounter No Data Provided for This Section Encounter Notes: All associated encounter notes This section contains the clinical notes associated to the Encounter. Date/Time Encounter Note(s) Provider Source May 28, 2019 09:51 AM ADMINISTRATIVE NOTE: LOCAL TITLE: [place]-ADMIN MSA STANDARD TITLE: ADMINISTRATIVE NOTE DATE OF NOTE: MAY 28, 2019@09:51 ENTRY DATE: MAY 28, 2019@09:51:52 AUTHOR: WILL KERNS EXP COSIGNER: URGENCY: STATUS: COMPLETED [facility] Administrative Note: Scheduling: ANSWERING MACHINE MESSAGE On May@09:52 an attempt was made to contact Clifford to schedule Transfer [facility] to 60min New Provider appointment in: [facility]/New Provider clinic. A message including the purpose of the call and a call back number was left on an answering machine. / Letter previously sent. Thank you. /susie/ WILL KERNS [facility] PRIMARY [facility] Signed: 05/28/2019 09:53 WILL KERNS [facility]
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
--- OUTSIDE RECORDS SUMMARY | 2020-03-28 08:25 | XMS REPORT | Encounter Summary ---
Author Author [facility] Organization [facility] Address [address] [place] [address] Phone Unavailable Care Team Providers Care Hand Clipper Name Role Phone FLORINDA SIMON PCP Unavailable [...] PART A Aug 25, 2011 PART A [id number] GADBERRY,CHARLANNE PATIENT MEDICARE (WNR) MEDICARE (M) PART B Aug 25, 2011 PART B [id number] GADBERRY,CHARLANNE PATIENT MEDICARE (WNR) MEDICARE (M) PART A Aug 25, 2011 PART A [id number] GADBERRY,CHARLANNE PATIENT MEDICARE (WNR) MEDICARE (M) PART B Aug 25, 2011 PART B [id number] GADBERRY,CHARLANNE PATIENT MEDICARE (WNR) MEDICARE (M) PART A Aug 25, 2011 PART A [id number] SANDRA MORELOS PATIENT MEDICARE (WNR) MEDICARE (M) PART B Aug 25, 2011 PART B [id number] SANDRA MORELOS PATIENT MEDICARE PART D (WNR) MEDICARE (M) PART D Sep 25, 2012 PART D [id number] SANDRA WHITMAN PATIENT Selected Encounter This section includes the information on record at OR for the Encounter. Date/Time Encounter Type Encounter Description Reason Provider Source Apr 01, 2019 02:31 PM Outpatient Encounter [facility] - IND ICD-10-CM F31.32 Bipolar disorder, current episode depressed, moderate with Provider Comments: Bipolar disorder ([facility] [id number]) KIMBERLY BANG [facility] IH Encounter Template Text not used by OR Assessments - Encounter Diagnoses This section includes the primary and secondary diag noses documented for the Encounter. Date/Time Primary/Secondary Diagnosis Diagnosis Name Provider Source Apr 01, 2019 02:58 PM PRIMARY Bipolar disorder, current episode depressed, moderate KANG URRUTIA [facility] Plan of Treatment: Future Appointments (+ [...] data comes from all OR treatment facilities. Appointment Date/Time Appointment Type Appointment Facili ty Name May 30, 2019 11:15 AM [facility]ORY [facility] Aug 06, 2019 02:00 PM AMBULATORY - PSYCHIATRY DARION MARTINEZ [facility] Aug 06, 2019 02:01 PM AM[facility]UL[facility] Active, Pending, and Scheduled Orders This [...] The data comes from all OR treatment [facility]. Test Date/Time Test Type Test Details Facility Name Apr 15, 2019 06:00 AM Laboratory - Chemistry Order COMPREHEN SIVE METABOLIC PANEL GREEN TOP TUBE PLASMA SP DARION MARTINEZ [facility] Apr 15, 2019 06:00 AM Laboratory - Chemistry Order LITHIUM R ED/GOLD SERUM SP ~For Test: LITHIUM ~Dose is expected to be at &TROUGH level. DARION MARTINEZ [facility] Surgical Procedures: All associated to [...] in Height Weight Body Mass Index Source Apr 01, 2019 03:11 PM 132/84 mm[Hg] [facility] Apr 01, 2019 03:05 PM 89 /min 154/90 mm[Hg] [facility] Immunizations: All administered on the encounter date [...] 21, 2018 11:32 AM CURRENT NON-SMOKER [facility] Tobacco Use History This section includes a history of the smoking, or tobacco -related health factors, that were collected on or before the date of the Encoun ter. The data comes from the OR facility where the Encounter took place. Date/Time Smoking Status/Tobacco Use Comment [facility] Nov 21, 2018 11:32 AM LIFETIME NON-TOBACCO USER [facility] Feb 27, 2017 09:38 AM CURRENT NON-SMOKER G[facility] Feb 27, 2017 09:38 AM LIFETIME NON-TOBACCO USER [facility] Sep 08, 2015 09:10 AM CURRENT NON-SMOKER [facility] Sep 08, 2015 09:10 AM LIFETIME NON-TOBACCO USER [facility] Jan 12, 2015 09:39 AM CURRENT NON-SMOKER [facility] Jan 12, 2015 09:39 AM LIFETIME NON-TOBACCO USER [facility] Jan 10, 2014 01:20 PM CURRENT NON-SMOKER [facility] Jan 10, 2014 01:20 PM LIFETIME NON-TOBACCO USER [facility] Oct 30, 2012 08:31 AM CURRENT NON-SMOKER [facility] Oct 30, 2012 08:31 AM LIFETIME NON-TOBACCO USER [facility] Jun 01, 2011 11:19 AM CURRENT NON-SMOKER [facility] Jun 01, 2011 11:19 AM LIFETIME NON-TOBACCO [...] 14, 2010 09:03 AM CURRENT NON-SMOKER [facility] Jan 14, 2010 09:03 AM LIFETIME NON-TOBACCO [...] 15, 2009 ADVANCE DIRECTIVE DISCUSSION JADE VARMA [facility] Jul 21, 2006 ADVANCE DIRECTIVE [facility] Jul 12, 2006 ADVANCE DIRECTIVE DISCUSSION SAV [...] adverse reactions to drug (diso rder) AMTONI [facility] ENALAPRIL May 04, 2007 Propensity to adverse reactions to drug ( disorder) Cough [facility] LEVAQUIN Aug 22, 2017 Propensity to adverse reactions to drug (diso rder) [facility] Oct 08, 2015 Propensity to adverse reactions to drug (disorder) Eruption [facility] LISINOPRIL Aug 22, 2017 Propensity to adverse reactions to drug (diso rder) [facility] LISINOPRIL Jan 16, 2007 Propensity to adverse reactions to drug (disorder) Cough [facility] NIACIN Aug 22, 2017 Propensity to adverse reactions to drug (diso rder) [facility] NIACIN Oct 23, 2008 Propensity to adverse reactions to drug ( disorder) Eruption [facility] Medications: VA dispensed (-15 months) and Non-VA Documented (Obtained Outside [facility]) Section Date Range: 1) prescriptions processed by a VA pharmacy in the last 15 m [facility], and 2) all medications recorded in the OR medical record as "non-VA medic ations". Pharmacy terms refer to OR pharmacy's work on prescriptions. VA patient s are advised to take their medications as instructed by their health care team. The data comes from all OR treatment facilities. Glossary of Pharmacy Terms:Active = A prescription that can be filled at the local OR pharmacy.Active: On Hold = An active prescription [...] BLOOD GLUCOSE TESTING 50 Jun 06, 2020 [id number] February 21, 2020 SIMON NEELY AMLODIPINE BESYLATE 10MG TAB Active TAKE ONE TABLET BY MOUTH EVERY MORNING 90 January 23, 2021 [id number] Jan 23, 2020 SIMON NEELY AMLODIPINE BESYLATE 10MG TAB Discontinued TAKE ONE TA BLET BY MOUTH EVERY MORNING 90 Nov 27, 2019 [id number] Oct 21, 2019 SIMON NEELY ATORVASTATIN CA 20MG TAB Active TAKE ONE-HALF T ABLET BY MOUTH AT BEDTIME FOR CHOLESTEROL - REPORT ANY UNEXPLAINED MUSCLE PAIN/WEAKNESS TO YOUR PROVIDER TAKE IN PLACE OF CRESTOR, VA DOESNT SUPPLY CRESTOR, FOR CHOLESTEROL - REPORT ANY UNEXPLAINED MUSCLE PAIN/WEAKNESS TO YOUR PROVIDER TAKE IN PLACE OF CRESTOR, VA DOESNT SUPPLY CRESTOR, 45 January 23, 2021 [id number] Jan 23, 2020 HARRISON NEELY ATORVASTATIN CA 20MG TAB Discontinued TAKE ONE-HALF T ABLET BY MOUTH AT BEDTIME FOR CHOLESTEROL - REPORT ANY UNEXPLAINED MUSCLE PAIN/WEAKNESS TO YOUR PROVIDER TAKE IN PLACE OF CRESTOR, VA DOESNT SUPPLY CRESTOR, FOR CHOLESTEROL - REPORT ANY UNEXPLAINED MUSCLE PAIN/WEAKNESS TO YOUR PROVIDER TAKE IN PLACE OF CRESTOR, VA DOESNT SUPPLY CRESTOR, 45 Dec 07, 2019 [id number] Mar 01, 2019 HARRISON NEELY BRIEF,SUPER PLUS ABSORB WITH BARRIERS UNDERWEAR X-LARGE ATTE NDS Active USE DIRECTED DIRECTED FOR INCONTINENCE 56 Nov 04, 2020 [id number] Nov 09, 2019 SIMON NEELY BRIEF,SUPER PLUS ABSORB WITH BARRIERS UNDERWEAR X-LARGE ATTE NDS Discontinued USE DIRECTED DIRECTED FOR INCONTINENCE 56 Apr 01, 2020 [id number] Aug 06, 2019 SIMON NEELY GLIPIZIDE 5MG TAB Active TAKE ONE TABLET BY M OUTH EVERY DAY BEFORE BREAKFAST FOR DIABETES. TAKE 30 MINUTES BEFORE EATING. 90 Apr 22, 2020 [id number] February 12, 2020 SIMON NEELY GLIPIZIDE 5MG TAB Discontinued TAKE ONE TABLET BY M OUTH EVERY DAY BEFORE BREAKFAST FOR DIABETES. TAKE 30 MINUTES BEFORE EATING. 90 Feb 242019 [id number] February 12, 2020 SIMON NEELY GLIPIZIDE 5MG TAB Discontinued TAKE ONE TABLET BY M OUTH EVERY DAY BEFORE BREAKFAST FOR DIABETES. TAKE 30 MINUTES BEFORE EATING. 90 January [id number] Nov 24, 2019 FLORINDASIMONONS JOSE LUIS GLIPIZIDE 5MG TAB Discontinued TAKE ONE TABLET BY M OUTH EVERY DAY BEFORE BREAKFAST FOR DIABETES. TAKE 30 MINUTES BEFORE EATING. 90 Nov [id number] Sep 05, 2019 SIMON NEELY LANCET,SOFTCLIX Active USE LANCET BIW FOR TESTING BL OOD GLUCOSE DIRECTED 100 Jun 06, 2020 [id number] Jun 07, 2019 SIMON NEELY CBO C LITHIUM CARBONATE 300MG CAP Active TAKE 1 CAPSU LE BY MOUTH EVERY MORNING AND TAKE 3 CAPSULES BY MOUTH AT BEDTIME FOR MOOD. MUST MAKE AN APPT OR WILL TAPER AND DISCONTINUE MEDICATIONS 120 February 12, 2021 [id number] Mar 04, 2020 [facility] LITHI[facility] CARBONATE 300MG CAP Discontinued TAKE 1 CAPSU LE BY MOUTH EVERY MORNING AND TAKE 3 CAPSULES BY MOUTH AT BEDTIME FOR MOOD. MUST MAKE AN APPT OR WILL TAPER AND DISCONTINUE MEDICATIONS 120 Aug 06, 2020 [id number] Dec 16, 2019 [facility] LITHIUM CARBONATE 300MG CAP Discontinued TAKE 1 CAPSU LE BY MOUTH EVERY MORNING AND TAKE 3 CAPSULES BY MOUTH AT BEDTIME FOR MOOD. MUST MAKE AN APPT OR WILL TAPER AND DISCONTINUE MEDICATIONS 120 Jun 10, 2020 [id number] Jul 19, 2019 [facility] LITHIUM CARBONATE 300MG CAP Discontinued TAKE 1 CAPSU LE BY MOUTH EVERY MORNING AND TAKE 3 CAPSULES BY MOUTH AT BEDTIME FOR MOOD. MUST MAKE AN APPT OR WILL TAPER AND DISCONTINUE MEDICATIONS 120 Jul 03, 2019 [id number] Jun 03, 2019 [facility]IQ [facility] LITHIUM CARBONATE 300MG CAP Discontinued TAKE 1 CAPSU LE BY MOUTH EVERY MORNING AND TAKE 3 CAPSULES BY MOUTH AT BEDTIME FOR MOOD. MUST MAKE AN APPT OR WILL TAPER AND DISCONTINUE MEDICATIONS 120 Mar 23, 2019 [id number] February 21, 2019 [facility] LITHIUM CARBONATE 300MG CAP Discontinued TAKE 1 CAPSU LE BY MOUTH EVERY MORNING AND TAKE 3 CAPSULES BY MOUTH AT BEDTIME FOR MOOD. 120 Dec 18, 2019 [id number] Jan 11, 2019 KIMBERLY BANG [facility] LITHIUM CARBONATE 300MG TAB,SA [...] SPLIT, OR CHEW. 234 May 31, 2019 [id number] Apr 01, 2019 KIMBERLY CARDONA [facility] NO KNOWN NON-VA MEDS MISCELLANEOUS Non-VA Non-VA Documented by: MICHELLE BARTHOLOMEW Docume nted at: [facility] NO KNOWN NON-VA MEDS MISCELLANEOUS Non-VA Non-VA Documented by: GALILEA BENÍTEZume nted at: [facility] OXYCODONE HCL 5MG TAB No n-VA TAKE ONE TABLET BY MOUTH EVERY 6 HOURS NEEDED Non-VA Documented by: SIMON NEELY nted at: [facility] QUETIAPINE FUMARATE 100MG TAB Active TAKE ONE-HALF TABL ET BY MOUTH AT BEDTIME 15 Mar 25, 2021 [id number] Mar 24, 2020 JASSONMOELOISE [facility] TRAMADOL HCL 50MG TAB No n-VA TAKE ONE TABLET BY MOUTH EVERY 6 HOURS NEEDED Non-VA Documented by: SIMON NEELY nted at: [facility] TRAZODONE HCL 100MG TAB Discontinued TAKE FOUR TABLET S BY MOUTH AT BEDTIME FOR MOOD OR SLEEP. 120 February 12, 2021 [id number] Mar 01, 2020 ELOISE HUYNH [facility] TRAZODONE HCL 100MG TAB Discontinued TAKE FOUR TABLET S BY MOUTH AT BEDTIME FOR MOOD OR SLEEP. 120 Aug 06, 2020 [id number] February 10, 2020 KANG ZAYAS [facility] TRAZODONE HCL 100MG TAB Discontinued TAKE FOUR TABLET S BY MOUTH AT BEDTIME FOR MOOD OR SLEEP. 120 Jun 03, 2020 [id number] Jul 29, 2019 KIMBERLY BANG [facility] TRAZODONE HCL 100MG TAB Discontinued TAKE FOUR TABLET S BY MOUTH AT BEDTIME FOR MOOD OR SLEEP. 120 February 05, 2020 [id number] May 06, 2019 KIMBERLY BANG [facility] TRAZODONE HCL 100MG TAB Discontinued TAKE FOUR TABLET S BY MOUTH AT BEDTIME FOR MOOD OR SLEEP. 120 Sep 14, 2019 [id number] Jan 07, 2019 [facility] TROSPIUM CL 20MG TAB Active TAKE ONE TABLET BY MOUTH TWO TIMES A DAY FOR BLADDER. TAKE ON AN EMPTY STOMACH OR AT LEAST ONE HOUR BEFORE FOOD. PER DR. BUTLER 180 January 23, 2021 [id number] Mar 16, 2020 SIMON NEELY ONS [facility] TROSPIUM CL 20MG TAB Discontinued TAKE ONE TABLET BY MOUTH TWO TIMES A DAY FOR BLADDER. TAKE ON AN EMPTY STOMACH OR AT LEAST ONE HOUR BEFORE FOOD. PER DR. BUTLER 180 Apr 01, 2020 [id number] Dec 17, 2019 SIMON NEELY [facility] VENLAFAXINE HCL 75MG 24HR CAP,SA Active TAKE 3 CAPSULES BY MOUTH ONCE A DAY FOR MOOD. TAKE WITH FOOD. 90 February 12, 2021 [id number] Mar 04, 2020 Arlette HUYNH [facility] VENLAFAXINE HCL 75MG 24HR CAP,SA Discontinued TAKE 3 CAPSULES BY MOUTH ONCE A DAY FOR MOOD. TAKE WITH FOOD. 90 Aug 06, 2020 [id number] Jan 05 0 KANG [facility]AS [facility] VENLAFAXINE HCL 75MG 24HR CAP,SA Discontinued TAKE 3 CAPSULES BY MOUTH ONCE A DAY FOR MOOD. TAKE WITH FOOD. 90 Aug 28, 2019 [id number] Aug 01 9 [facility]IMBERLY [facility]IQ [facility] VENLAFAXINE HCL 75MG 24HR CAP,SA Discontinued TAKE 3 CAPSULES BY MOUTH ONCE A DAY FOR MOOD. TAKE WITH FOOD. 90 February 05, 2020 [id number] Jul 01 9 [facility]IMBERLY TARIQ [facility] Problems (Conditions): All historical and [...] tendinitis (ICD-9-CM 726.71) Active 726.71 RILEY GALVAN [facility] Acquired right hallux valgus Active [id number] RILEY GALVAN [facility] Ankle ulcer due to type 2 diabetes mellitus ([place] [address] [id number]) Active [id number] SIMON NEELY [facility] Bereavement (SNOMED CT 63061525) Active V62.89 SIMON NEELY [facility] Bilateral plantar fasciitis (SNOMED CT [id number]) Ac tive [id number] RILEY GALVAN [facility] BIPOLAR AFFECTIVE NOS Active 296.7 DEMETRA UREÑA [facility] Bipolar disorder (SNOMED CT 15512611) Active 74256233 KIMBERLY BANG [facility] Bunion Active 727.1 MONICA MADDOX [facility] Carpal Tunnel Syndrome * (ICD-9-CM 354.0) Active 354.0 Oct 16, 2002 Entered By: GALILEA BENÍTEZ Comment: rt GALILEA BENÍTEZ [facility] Cerebral Palsy NEC (ICD-9-CM 343.8) Active 343.8 SEPIDEH NELSON [place] [facility] Depression * (ICD-9-CM 311./300.4) Active 311. SIMON NEELY [facility] Derangement of meniscus Active 717.5 J an 2001 Entered By: DEMETRA UREÑA Comment: left knee, arthroscopy 11/23 DMEETRA UREÑA [facility] Diabetes mellitus (SNOMED CT 72080007) Active 57352779 SIMON NEELY [facility] Difficulty balancing Active 839778245 HARRISON NEELY [facility] Elevated Liver Function Tests (ICD-9-CM 794.8) Active 794.8 [facility] Enthesopathy of ankle and tarsus (ICD-9-CM 726.70/726.79) Active 72 6.70 BECCA JONES [facility] Flat foot Active 734. MONICA [facility]ADDOX [facility] GERD * (ICD-9-CM 530.81) Active 530.81 [facility] Hip Pain (ICD-9-CM 719.45) Active 719.45 [facility]ON [facility]A [facility] Hyperkeratosis Active 701.1 MONICA MADDOX [facility] Hyperlipidemia * (ICD-9-CM 272.4) Active 272.4 [facility] Hypertension * (ICD-9-CM 401.9) Active 401.9 GALILEA BENÍTEZ [facility] Hypertension * (ICD-9-CM 401.9) Active 401.9 [facility] Insomnia * (ICD-9-CM 780.52) Active 780.52 SIMON THOMAS [facility] Joint Pain Forearm Active 719.43 LEONIDAS GUZMAN [facility] Lower Leg Injury NOS Active 959.7 SHARRI GUZMAN [facility] Morbid Obesity * (ICD-9-CM 278.01) Active 278.01 D[facility]ION [facility] Obesity * (ICD-9-CM 278.00) Active 278.00 GALILEA WEST [facility] Onychomycosis (SNOMED CT 601511140) Active 110.1 SIMON NEELY [facility] Osteoarthosis Shoulder Active 715.91 VERNELL GUZMAN [facility] Pain in joint involving shoulder region (ICD-9-CM 719.41) Active 71 9.41 [facility] Routine Gynecological examination Active V72.31 SIMON NEELY [facility] Sciatica * (ICD-9-CM 724.3) Active 724.3 SIMON CAMP [facility] Unspecified chest pain * (ICD-9-CM 786.50) Active 786.50 MARK VIVAS [facility] Unsteady when walking Active 43805362 [facility] Urinary Incontinence * (ICD-9-CM 788.30) Active 788.30 JJ GAYTAN [facility] MUSCLE SPASM Inactive 728.85 May 29, [...]
== END 2020-03-28 08:11 | disposition home or self-care (01) ==
LOC: EDUNIT# 07:42 → ER 07:44
DX: R25.8 Other abnormal involuntary movements (principal); I10 Essential (primary) hypertension; E11.42 Type 2 diabetes mellitus with diabetic polyneuropathy; G80.9 Cerebral palsy, unspecified; E66.9 Obesity, unspecified; Z68.41 Body mass index [BMI] 40.0-44.9, adult; K21.9 Gastro-esophageal reflux disease without esophagitis; F31.9 Bipolar disorder, unspecified; F41.9 Anxiety disorder, unspecified; Z79.84 Long term (current) use of oral hypoglycemic drugs; T43.595A Adverse effect of other antipsychotics and neuroleptics, initial encounter
CPT/HCPCS: 99282

== ENCOUNTER 2020-05-22 17:49 | Emergency (ER) | payer MEDICARE, OTHER ==
[~2020-05-22] VITALS: Ht 152.4 cm; Wt 95.7 kg
[~2020-05-22 17:49] MED LIST changes: +QUET100T33 PO
--- NOTE | 2020-05-22 18:42 | ED Fall/Injury ---
General Chief Complaint: Trauma-Non Activation Stated Complaint: FALL Nursing Triage Note: PT FELL FROM A SITTING POSITION IN THE YARD Source: patient Exam Limitations: no limitations History of Present Illness Date Seen by Provider: May 22, 2020 Time Seen by Provider: 18:09 Initial Comments This 64-year-old woman presents to the emergency room after falling out of a chair in her yard. She reports the chair was wobbly as she attempted to get up causing her to fall. She reports having some issues with balance over the past week or so. She has been using a walker. She has had some long-term issues with balance but this seems to be worse over the last week. She has a documented history of cerebral palsy. She struck her left knee where she has a minor scrape and she is concerned about the knee. She had a knee replacement and she is worried about the integrity of her knee. She has not attempted to walk since falling. She reports "tapping my head" but no significant head injury. She is not on any blood thinning medications. She denies any head or neck pain. She does take lithium for bipolar disorder. She is alert and oriented upon assessment. No focal neurologic deficits were obvious. She reports her blood sugars have been good recently and her balance issues do not appear to be related to hypoglycemia. Her primary care provider is Loreto Salgado at [facility]. Location Injury Occurred: [place] [facility] [place] Allergies and Home Medications Allergies Coded Allergies: lisinopril (Unverified Allergy, Unknown, 01/16/18) niacin (Verified Allergy, Unknown, hives/rash, 09/16/14) Home Medications Amlodipine Besylate 10 Mg Tablet, 10 MG PO DAILY, (Reported) Atorvastatin Calcium 10 Mg Tablet, 10 MG PO HS, (Reported) Glipizide 10 Mg Tablet, 10 MG PO DAILY, (Reported) [place] Carbonate 300 Mg Capsule, 300 MG PO DAILY, (Reported) [place] Carbonate 300 Mg Capsule, 900 MG PO HS, (Reported) take 3 (300mg) tabs Pantoprazole Sodium 40 Mg Tablet.dr, 40 MG PO DAILY Prescribed by: CRISTINE RAYMOND on 05/08/18 1400 Solifenacin Succinate 5 Mg Tablet, 5 MG PO DAILY, (Reported) Venlafaxine HCl 75 Mg Tab, 225 MG PO DAILY, (Reported) take 3 (75mg) tabs Patient Home Medication List Home Medication List Reviewed: Yes Review of Systems Review of Systems Constitutional: no symptoms reported Eyes: No Symptoms Reported Ears, Nose, Mouth, Throat: no symptoms reported Respiratory: no symptoms reported Cardiovascular: no symptoms reported Genitourinary: no symptoms reported : No Musculoskeletal: no symptoms reported Skin: no symptoms reported Psychiatric/Neurological: See HPI All Other Systems Reviewed Negative Unless Noted: No Past Zouuszs-Teiecd-Crrdtk Hx Past Med/Social Hx: Reviewed Nursing Past Med/Soc Hx Patient Social History Alcohol Use: Denies Use Number of Drinks Today: Alcohol Beverage of Choice: Wine Recreational Drug Use: No Smoking Status: Never a Smoker 2nd Hand Smoke Exposure: No Recent Foreign Travel: No Contact w/Someone Who Travel: No Recent Infectious Disease Expo: No Recent Hopitalizations: No Physical Abuse: No Sexual Abuse: No Mistreated: No Fear: No Immunizations Up To Date Tetanus Booster (TDap): Unknown PED Vaccines UTD: No Date of Pneumonia Vaccine: February 04, 2014 Date of Influenza Vaccine: Jun 25, 2016 Seasonal Allergies Seasonal Allergies: No Past Medical History Surgeries: Yes Joint Replacement (left knee), Orthopedic, Tonsillectomy Respiratory: No Currently Using CPAP: No Currently Using BIPAP: No Cardiac: Yes Hypertension Neurological: Yes Cerebral Palsy, Neuropathy Reproductive Disorders: No Female Reproductive Disorders: Menstrual Problems Sexually Transmitted Disease: No HIV/AIDS: No Genitourinary: Yes (BLADDER SPASMS) Kidney Stones Gastrointestinal: Yes (difficulty swallowing) Gastroesophageal Reflux Musculoskeletal: Yes (CEREBRAL PALSY) Endocrine: Yes (OBESITY) Diabetes, Non-Insulin dep HEENT: No Loss of Vision: Denies Hearing Impairment: Denies Cancer: No Psychosocial: Yes Anxiety, Bipolar, Depression Integumentary: No Blood Disorders: No Adverse Reaction/Blood Tranf: No Family Medical History Reviewed Nursing Family Hx Completed stroke G8 SISTER, Onset:40's - 50 Lung cancer 19 FATHER, Onset:60 years & older Respiratory disorder 19 MOTHER, Onset:50's - 60 (copd) Heart Disease, Cancer, COPD, Stroke Physical Exam Vital Signs Vital Signs - First Documented 05/22/20 17:50 Temp 37.2 Pulse 88 Resp 19 B/P (MAP) 132/78 (96) O2 Delivery Room Air Capillary Refill : Less Than 3 Seconds Height, Weight, BMI Height: 5'0.00" Weight: 232lbs. 0oz. 105.317851al; 41.00 BMI Method:Stated General Appearance: WD/WN, no apparent distress, obese HEENT: PERRL/EOMI, normal ENT inspection Neck: normal inspection Cardiovascular: regular rate, rhythm, no edema, no murmur, other (sinus rhythm on monitor) Respiratory: lungs clear, normal breath sounds, no respiratory distress Gastrointestinal: normal bowel sounds, non tender, soft Extremities: normal inspection, no pedal edema, other (minor scrape on the anterior left knee. No significant pain with range of motion. Mild pain with palpation. There are shallow abrasions to the left arm.) Neurologic/Psychiatric: mineral economist II-XII nml as tested, no motor/sensory deficits, alert, normal mood/affect, oriented x 3 Skin: normal color, warm/dry, other (minor scrape on the left knee) Royal Coma Score Best Eye Response: (4) Open Spontaneously Best Verbal Response: (5) Oriented Best Motor Response: (6) Obeys Commands [place] Total: 15 Progress/Results/Core Measures Results/Orders Lab Results Laboratory Tests Test 05/22/20 18:41 05/22/20 19:07 Range/Units Urine Color YELLOW Urine Clarity CLEAR Urine pH 7.0 5-9 Urine Specific [place] <=1.005 1.016-1.022 Urine Protein NEGATIVE NEGATIVE Urine Glucose (UA) NEGATIVE NEGATIVE Urine Ketones NEGATIVE NEGATIVE Urine Nitrite NEGATIVE NEGATIVE Urine Bilirubin NEGATIVE NEGATIVE Urine Urobilinogen 0.2 < = 1.0 MG/DL Urine Leukocyte Esterase NEGATIVE NEGATIVE Urine RBC (Auto) NEGATIVE NEGATIVE Urine RBC NONE /HPF Urine WBC RARE /HPF Urine Squamous Epithelial Cells 2-5 /HPF Urine Crystals NONE /LPF Urine Bacteria TRACE /HPF Urine Casts NONE /LPF Urine Mucus NEGATIVE /LPF Urine Culture Indicated NO White Blood Count 11.9 H 4.3-11.0 10^3/uL Red Blood Count 4.39 4.35-5.85 10^6/uL Hemoglobin 12.6 11.5-16.0 G/DL Hematocrit 38 35-52 % Mean Corpuscular Volume 86 80-99 FL Mean Corpuscular Hemoglobin 29 25-34 PG Mean Corpuscular Hemoglobin Concent 33 32-36 G/DL Red Cell Distribution Width 14.9 H 10.0-14.5 % Platelet Count 276 130-400 10^3/uL Mean Platelet Volume 9.9 7.4-10.4 FL Neutrophils (%) (Auto) 72 42-75 % Lymphocytes (%) (Auto) 17 12-44 % Monocytes (%) (Auto) 9 0-12 % Eosinophils (%) (Auto) 2 0-10 % Basophils (%) (Auto) 0 0-10 % Neutrophils # (Auto) 8.6 H 1.8-7.8 X 10^3 Lymphocytes # (Auto) 2.0 1.0-4.0 X 10^3 Monocytes # (Auto) 1.0 0.0-1.0 X 10^3 Eosinophils # (Auto) 0.3 0.0-0.3 10^3/uL Basophils # (Auto) 0.0 0.0-0.1 10^3/uL Sodium Level 139 135-145 MMOL/L Potassium Level 3.6 3.6-5.0 MMOL/L Chloride Level 105 98-107 MMOL/L Carbon Dioxide Level 24 21-32 MMOL/L Anion Gap 10 5-14 MMOL/L Blood Urea Nitrogen 16 7-18 MG/DL Creatinine 1.18 0.60-1.30 MG/DL Estimat Glomerular Filtration Rate 46 BUN/Creatinine Ratio 14 Glucose Level 123 H 70-105 MG/DL Calcium Level 8.9 8.5-10.1 MG/DL Corrected Calcium 9.0 8.5-10.1 MG/DL Magnesium Level 2.0 1.6-2.4 MG/DL Total Bilirubin 0.4 0.1-1.0 MG/DL Aspartate Amino Transf (AST/SGOT) 19 5-34 U/L Alanine Aminotransferase (ALT/SGPT) 29 0-55 U/L Alkaline Phosphatase 71 40-136 U/L Total Protein 6.9 6.4-8.2 GM/DL Albumin 3.9 3.2-4.5 GM/DL TSH [place] Testing 2.50 0.35-4.94 UIU/ML My Orders Orders - GLO BULL MD Cbc With Automated Diff (05/22/20 18:17) Comprehensive Metabolic Panel (05/22/20 18:17) Magnesium (05/22/20 18:17) Thyroid Analyzer (05/22/20 18:17) Ua Culture If Indicated (05/22/20 18:17) Ed Iv/Invasive Line Start (05/22/20 18:17) Knee, Left, 3 Views (05/22/20 18:18) [place] Level (05/22/20 18:19) Dipht,Pertuss(Acell),Tet Adult (Boostrix (05/22/20 20:15) Vital Signs/I&O 05/22/20 17:50 Temp 37.2 Pulse 88 Resp 19 B/P (MAP) 132/78 (96) O2 Delivery Room Air Blood Pressure Mean: 96 Progress Progress Note #1: Time: 18:40 Progress Note Patient has been seen and examined. Because of the complaint of increased ba [place] difficulty over the past week or so we will obtain basic labs and urinalysis. [place] level will also be drawn and patient will need to follow-up with her primary care provider on results. Progress Note #2: Time: 20:08 Progress Note X-ray demonstrated a stable knee prosthesis with no acute injuries identified. Labs were relatively unremarkable. [place] level is pending and patient was instructed to follow-up with her prescriber regarding the results. Patient was able to ambulate to the restroom with minimal assistance. Tetanus booster was administered. Diagnostic Imaging Diagonstic Imaging: Xray Plain Films/CT/US/NM/MRI: knee Comments Knee x-ray viewed by me and report reviewed. See report below: NAME: SANDRA MORELOS [facility] REC#: [id number] PT STATUS: REG ER : 1955 PHYSICIAN: GLO BULL MD ADMIT DATE: 05/22/20/ER Signed Date of Exam:05/22/20 KNEE, LEFT, 3 VIEWS INDICATION: Fall, pain. EXAMINATION: Left knee, 05/22/2020. FINDINGS: Three views of the knee. Total knee arthroplasty appears intact. There is no evidence for loosening. There is a moderate joint effusion. IMPRESSION: Joint effusion. No acute osseous abnormality. Dictated by: Dictated on workstation # [id number] Dict: 05/22/201916 Trans: 05/22/201932 [facility] [id number] Interpreted by: ANITA PARIS MD Electronically signed by: ANITA PARIS MD 05/22/201932 Departure Impression Primary Impression: Fall from chair Qualified Codes: W07.XXXA - Fall from chair, initial encounter Additional Impressions: Left knee pain Qualified Codes: M25.562 - Pain in left knee Balance problem Multiple abrasions Disposition: HOME, SELF-CARE Condition: Stable Departure-Patient Inst. Referrals: [facility] [place] (PCP/Family) Primary Care Physician Patient Instructions: Preventing Falls Add. Discharge Instructions: You may ice injured areas in 20 minute intervals. You may use Tylenol (acetaminophen) up to 1000 mg every 6 hours. Use your walker for safety. Follow-up with your primary care provider for reevaluation as needed, especially if you have worsening symptoms or are not improving as expected. A lithium level was drawn in the emergency room. That result should be available in a few days. Please have your lithium prescriber check on that level in follow-up. All discharge instructions reviewed with patient and/or family. Voiced understanding. Copy Copies To 1: PORTER MORFIN JOSHUA T MD May 22, 2020 18:42
[2020-05-22 18:51] LABS: BILIRUBIN,URINE NEGATIVE (NEGATIVE); CLARITY,URINE CLEAR; COLOR,URINE YELLOW; GLUCOSE, URINE (UA) NEGATIVE (NEGATIVE); KETONES,URINE NEGATIVE (NEGATIVE); LEUKOCYTE ESTERASE ,URINE NEGATIVE (NEGATIVE); NITRITE,URINE NEGATIVE (NEGATIVE); PROTEIN,URINE NEGATIVE (NEGATIVE)
[2020-05-22 18:59] LABS: BACTERIA,URINE TRACE /HPF; WBC,URINE RARE /HPF
[2020-05-22 19:15] LABS: BASOPHILS % (AUTO) 0 % (0-10); EOSINOPHILS # (AUTO) 0.3 10^3/uL (0.0-0.3); EOSINOPHILS % (AUTO) 2 % (0-10); HEMATOCRIT 38 % (35-52); HEMOGLOBIN 12.6 G/DL (11.5-16.0); LYMPHOCYTES % (AUTO) 17 % (12-44); MEAN CORPUSCULAR HEMOGLOBIN 29 PG (25-34); MEAN CORPUSCULAR HGB CONC 33 G/DL (32-36); MEAN CORPUSCULAR VOLUME 86 FL (80-99); MEAN PLATELET VOLUME 9.9 FL (7.4-10.4); MONOCYTES % (AUTO) 9 % (0-12); NEUTROPHILS # (AUTO) 8.6 X 10^3 (1.8-7.8); NEUTROPHILS % (AUTO) 72 % (42-75); PLATELET COUNT 276 10^3/uL (130-400); RED CELL DISTRIBUTION WIDTH 14.9 % (10.0-14.5); WHITE BLOOD COUNT 11.9 10^3/uL (4.3-11.0)
[2020-05-22 19:22] LABS: ALBUMIN 3.9 GM/DL (3.2-4.5); POTASSIUM 3.6 MMOL/L (3.6-5.0)
--- NOTE | 2020-05-22 19:22 | Diagnostic Imaging Report ---
INDICATION: Fall, pain. EXAMINATION: Left knee, 05/22/2020. FINDINGS: Three views of the knee. Total knee arthroplasty appears intact. There is no evidence for loosening. There is a moderate joint effusion. IMPRESSION: Joint effusion. No acute osseous abnormality. Dictated by: Dictated on workstation # [id number]
[2020-05-22 19:24] LABS: CALCIUM 8.9 MG/DL (8.5-10.1)
[2020-05-22 19:25] LABS: TOTAL PROTEIN 6.9 GM/DL (6.4-8.2)
[2020-05-22 19:27] LABS: BILIRUBIN,TOTAL 0.4 MG/DL (0.1-1.0)
[2020-05-22 19:28] LABS: CREATININE SERUM 1.18 MG/DL (0.60-1.30)
[2020-05-22 19:51] LABS: TSH (THYROID ANALYZER) 2.5 UIU/ML (0.35-4.94)
[2020-05-22] MEDS ORDERED: TETANUS,DIPTH,PERTUSS P/F (BOOSTRIX) 0.5 ML VIAL IM ONE (20:15)
[2020-05-22 20:19] VITALS: BP 130/72
== END 2020-05-22 20:19 | disposition home or self-care (01) ==
LOC: EDUNIT# 17:49 → ER 17:50
DX: S40.812A Abrasion of left upper arm, initial encounter (principal); M25.562 Pain in left knee; R26.89 Other abnormalities of gait and mobility; F31.9 Bipolar disorder, unspecified; I10 Essential (primary) hypertension; G80.9 Cerebral palsy, unspecified; E11.40 Type 2 diabetes mellitus with diabetic neuropathy, unspecified; K21.9 Gastro-esophageal reflux disease without esophagitis; E66.9 Obesity, unspecified; F41.9 Anxiety disorder, unspecified; Z96.652 Presence of left artificial knee joint; Z80.1 Family history of malignant neoplasm of trachea, bronchus and lung; Z88.8 Allergy status to other drugs, medicaments and biological substances; Z68.41 Body mass index [BMI] 40.0-44.9, adult; Z23 Encounter for immunization; W07.XXXA Fall from chair, initial encounter
CPT/HCPCS: 36415; 73562; 80053; 80178; 81000; 83735; 84443; 85025; 90715

== ENCOUNTER → 2020-07-15 | Outpatient (CLI) | payer MEDICARE, OTHER ==
[~2020-07-15] MED LIST changes: +CATHETER FLUSH 10 ML SYR IV PRN; +HOLD METFORMIN - RECEIVED CONTRAST 20 ML VIAL IV SCH; +IOHEXOL 350 MG/ML 100 ML (OMNIPAQUE 350) VIAL IV ONE; +NS 100 ML (IVPB) BAG IV ONE
[2020-07-15 10:32] LABS: ALANINE AMINOTRANSFERASE 32 U/L (0-55); ALBUMIN 4.2 GM/DL (3.2-4.5); ALKALINE PHOSPHATASE 90 U/L (40-136); BILIRUBIN,TOTAL 0.2 MG/DL (0.1-1.0); BUN/CREATININE RATIO 16; CALCIUM 9.3 MG/DL (8.5-10.1); CARBON DIOXIDE 23 MMOL/L (21-32); CHLORIDE 107 MMOL/L (98-107); CREATININE SERUM 0.89 MG/DL (0.60-1.30); GFR ESTIMATED > 60; GLUCOSE 156 MG/DL (70-105); POTASSIUM 4.2 MMOL/L (3.6-5.0); SODIUM 141 MMOL/L (135-145); TOTAL PROTEIN 7.2 GM/DL (6.4-8.2)
--- NOTE | 2020-07-15 12:40 | Diagnostic Imaging Report ---
PROCEDURE: CT head with and without contrast. TECHNIQUE: Multiple contiguous axial images were obtained through the brain before and after the administration of intravenous contrast. Auto Exposure Controls were utilized during the CT exam to meet ALARA standards for radiation dose reduction. DATE: July 15, 2020. COMPARISON: MRI brain July 13, 2018. INDICATION: 65-year-old female, multiple episodes of falling in the past 3 months. Hit head. FINDINGS: The ventricles and cerebral spinal fluid spaces are of normal size and configuration for the patient's age. There is no mass effect or midline shift. There is no acute intracranial hemorrhage. There is no abnormal extra-axial fluid collection. The visualized portions of the paranasal sinuses, mastoid air cells, and middle ears are well aerated. There is no identified abnormal intracranial enhancement. IMPRESSION: Unremarkable CT head without and with intravenous contrast. Dictated by: Dictated on workstation # [id number]
== END ==
LOC: RAD 10:03
PROVIDERS: ATTEND Nurse Practitioner Community Health
DX: R29.6 Repeated falls (principal); E11.42 Type 2 diabetes mellitus with diabetic polyneuropathy
CPT/HCPCS: 36415; 70470; 80053

== ENCOUNTER → 2021-01-01 | Outpatient (CLI) | payer MEDICARE, OTHER ==
[~2021-01-01] MED LIST changes: +AMLO-251 PO; -AMLO10TA7 PO; -CATHETER FLUSH 10 ML SYR IV PRN; -HOLD METFORMIN - RECEIVED CONTRAST 20 ML VIAL IV SCH; -IOHEXOL 350 MG/ML 100 ML (OMNIPAQUE 350) VIAL IV ONE; -NS 100 ML (IVPB) BAG IV ONE
--- NOTE | 2021-01-01 19:05 | Diagnostic Imaging Report ---
INDICATION: Pain and lump in the right breast. COMPARISON: Correlation is made with diagnostic mammogram from earlier the same day. EXAMINATION: Sonographic interrogation of the area of pain at the 6:00 location of the right breast was performed. In addition, area of lump at the 4-5 o'clock location of the right breast was evaluated. FINDINGS: No sonographic abnormality is seen at any location. No solid or cystic mass was detected. IMPRESSION: No sonographic abnormality is identified at the areas of pain and lump in the right breast. Continued clinical follow-up is recommended. ACR BI-RADS Category 1: Negative. Result letter will be mailed to the patient. Note: At least 10% of breast cancer is not imaged by mammography. Dictated by: Dictated on workstation # [id number]
--- NOTE | 2021-01-01 19:28 | Diagnostic Imaging Report ---
INDICATION: Pain and lump in the right breast. COMPARISON: Correlation is made with prior exam from 01/01/2018. EXAMINATION: 2D and 3D bilateral diagnostic mammography was performed with CAD. The current study was also evaluated with a Computer Aided Detection (CAD) system. FINDINGS: BB markers were placed at the area of pain in the lateral right breast as well as an area of lump in the inferior and medial right breast. No underlying abnormality is seen. Both breasts show some moderate parenchymal heterogeneity. There are occasional benign nodules in the left breast. There are scattered benign calcifications. No malignant appearing microcalcification is seen. Axillae are unremarkable. IMPRESSION: No mammographic features suspicious for malignancy are identified. Even so, directed sonographic interrogation of the area pain and lump in the right breast is recommended and will be performed today. ACR BI-RADS Category 0: Incomplete. (Needs additional imaging evaluation). Result letter will be mailed to the patient. Note: At least 10% of breast cancer is not imaged by mammography. Dictated by: Dictated on workstation # [id number]
== END ==
LOC: RAD 13:35
PROVIDERS: ATTEND Nurse Practitioner Family
DX: N63.14 Unspecified lump in the right breast, lower inner quadrant (principal)
CPT/HCPCS: 76642; 77066; G0279; 77062

== ENCOUNTER → 2021-01-05 | Outpatient (CLI) | payer MEDICARE, OTHER ==
--- NOTE | 2021-01-05 09:48 | Diagnostic Imaging Report ---
INDICATION: Postmenopausal female. COMPARISON: None FINDINGS: AP Spine L1-L4: [BMD (g/cm2): 1.327] [T-Score: 1.1] [Z-Score: 1.5] [BMD Previous: NA] [BMD % Change: NA] LT Hip Neck: [BMD (g/cm2): 0.796] [T-Score: -1.7] [Z-Score: -1.0] LT Hip Total: [BMD (g/cm2):0.952] [T-Score:-0.4] [Z-Score: 0.0] [BMD Previous: NA] [BMD % Change: NA] RT Hip Neck: [BMD (g/cm2):0.718] [T-Score:-2.3] [Z-Score:-1.5] RT Hip Total: [BMD (g/cm2):0.940] [T-score:-0.5] [Z-Score:-0.1] [BMD Previous:NA] [BMD % Change:NA] *Indicates significant change from prior examination based on 95% confidence level. World Health Organization criteria for BMD interpretation classify patients as Normal (T-score at or above -1.0), Osteopenic (T-score between -1.0 and -2.5) or Osteoporotic (T-score at or below -2.5). LIMITATIONS AND MODIFICATION: Degenerative change in the lumbar spine may falsely elevate bone density FRACTURE RISK (FRAX SCORE): The ten year probability of (%): Major Osteoporotic Fracture: [11] Hip Fracture: [1.9] IMPRESSION: 1. Osteopenia (Low bone mass). 2. Baseline examination. 3. See below National Osteoporosis Foundation guidelines on when to potentially initiate pharmacologic therapy. Based on the National Osteoporosis Foundation Guidelines, pharmacologic treatment should be initiated in any of the following, unless clinical conditions suggest otherwise: * Any patient with prior fragility fracture of the hip or vertebrae. A spine fracture indicates 5X risk for subsequent spine fracture and 2X risk for subsequent hip fracture. * Osteoporosis (T-score <-2.5). * Postmenopausal women and men age 50 and older with low bone mass/osteopenia (T-score between -1.0 and -2.5) by DXA and 10-year major osteoporotic fracture greater than 20% or a 10-year probability of hip fracture greater than 3%. These fracture risks are supplied above in the FRAX score, if applicable. * Clinician judgement and/or patient preferences may indicate treatment for people with 10-year fracture probabilities above or below these levels. Dictated by: Dictated on workstation # [id number]
== END ==
LOC: RAD 08:47
PROVIDERS: ATTEND Nurse Practitioner Family
DX: Z13.820 Encounter for screening for osteoporosis (principal); Z12.31 Encounter for screening mammogram for malignant neoplasm of breast; M85.80 Other specified disorders of bone density and structure, unspecified site; Z78.0 Asymptomatic menopausal state
CPT/HCPCS: 77080

== ENCOUNTER 2021-08-17 04:32 | Emergency (ER) | payer MEDICARE, OTHER ==
[~2021-08-17] VITALS: Ht 152 cm; Wt 96.0 kg
[2021-08-17 04:36] VITALS: BP 139/68
--- NOTE | 2021-08-17 04:50 | ED Fall/Injury ---
General Chief Complaint: Trauma-Non Activation Stated Complaint: FALL Nursing Triage Note: BROUGHT IN BY [facility] C/O FALL FROM STANDING POSITION. C/O LEFT FACE, RIGHT KNEE PAIN. ABRAISION TO LEFT CHEEK. DENIES LOC. Source: patient History of Present Illness Date Seen by Provider: Aug 17, 2021 Time Seen by Provider: 04:37 Initial Comments PT ARRIVES VIA EMS FROM HOME-NO IMMOBILIZATION PT STATES AROUND 0400, SHE GOT UP TO GO TO THE BATHROOM AND SHE FELL, HITTING HER LEFT CHEEK AGAINST THE DOOR FRAME NO LOSS OF CONSCIOUSNESS NO NECK OR BACK PAIN NO HEADACHE NO VISION CHANGES NO DIZZINESS AT THIS TIME--STATES SHE FREQUENTLY GETS DIZZY, BUT NOT TONIGHT NO PARESTHESIAS OR MOTOR DEFICITS NO LEG PAIN--STATES FIRE/EMS STAFF ASSISTED HER UP FROM THE FLOOR, AND SHE WAS ABLE TO WALK TO THE BATHROOM, AND THEN BACK TO BED, AND GET DRESSED AND THEY HELPED HER PUT HER SHOES ON NO ORAL INJURY PT HAS HAD RIGHT SHOULDER SURGERY, AND THINKS SHE MIGHT HAVE BUMPED HER RIGHT SHOULDER AND IT IS SLIGHTLY SORE. DENIES ANY OTHER INJURIES FROM THE INCIDENT PT STATES SHE FREQUENTLY FALLS AND HAS BEEN USING A WALKER FOR OVER 10 YEARS, ALSO USES A CANE. WAS NOT USING EITHER ONE WHEN SHE FELL THIS MORNING. PT IS NOT ON ASPIRIN OR BLOOD THINNERS LAST TETANUS IS UNKNOWN Location Injury Occurred: HOME PCP: [facility] Allergies and Home Medications Allergies Coded Allergies: lisinopril (Unverified Allergy, Unknown, 01/16/18) niacin (Verified Allergy, Unknown, hives/rash, 09/16/14) Patient Home Medication List Home Medication List Reviewed: Yes Amlodipine Besylate (Amlodipine Besylate) 10 Mg Tablet, 10 MG PO DAILY, (Reported) Entered as Reported by: QUYEN LUCAS on 05/03/18 1233 Atorvastatin Calcium (Atorvastatin Calcium) 10 Mg Tablet, 10 MG PO HS, (Reported) Entered as Reported by: QUYEN LUCAS on 05/03/18 1233 Glipizide (Glipizide) 10 Mg Tablet, 10 MG PO DAILY, (Reported) Entered as Reported by: ALIS HURD on 04/11/17 1106 [place] Carbonate ([place] Carbonate) 300 Mg Capsule, 300 MG PO DAILY, (Reported) Entered as Reported by: QUYEN LUCAS on 05/03/18 1233 [place] Carbonate ([place] Carbonate) 300 Mg Capsule, 900 MG PO HS, (Reported) Entered as Reported by: QUYEN LUCAS on 05/03/18 1233 Pantoprazole Sodium (Protonix) 40 Mg Tablet.dr, 40 MG PO DAILY Prescribed by: CRISTINE RAYMOND on 05/08/18 1400 Quetiapine Fumarate (Quetiapine Fumarate) 100 Mg Tablet, 100 MG PO, (Reported) Entered as Reported by: ABDI GRIGGS on 03/28/20 0808 Solifenacin Succinate (Vesicare) 5 Mg Tablet, 5 MG PO DAILY, (Reported) Entered as Reported by: ALIS HURD on 05/08/18 1307 Venlafaxine HCl (Venlafaxine HCl) 75 Mg Tab, 225 MG PO DAILY, (Reported) Entered as Reported by: QUYEN LUCAS on 05/03/18 1233 Review of Systems Review of Systems Constitutional: no symptoms reported Eyes: No Symptoms Reported Ears, Nose, Mouth, Throat: no symptoms reported Respiratory: no symptoms reported Cardiovascular: no symptoms reported Gastrointestinal: no symptoms reported Genitourinary: no symptoms reported Musculoskeletal: see HPI Skin: other (BRUISE AND SWELLING TO LEFT CHEEK) Psychiatric/Neurological: No Symptoms Reported Past Zatekil-Ghhxvw-Sineqa Hx Patient Social History Tobacco Use?: No Substance use?: No Alcohol Use?: No Pt feels they are or have been: No Immunizations Up To Date Tetanus Booster (TDap): Unknown PED Vaccines UTD: No First/Initial COVID19 Vaccinat: 12/13 Second COVID19 Vaccination Nito: 01/13 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 Seasonal Allergies Seasonal Allergies: No Past Medical History Surgery/Hospitalization HX: L KNEE, T/A, HTN, HYPERLIPIDEMIA, NIDDM, GERD, CEREBRAL PALSEY, ANX/DEPRESSION Surgeries: Yes Joint Replacement, Orthopedic, Tonsillectomy Respiratory: No Currently Using CPAP: No Currently Using BIPAP: No Cardiac: Yes Hypertension Neurological: Yes Cerebral Palsy, Neuropathy Reproductive Disorders: No Female Reproductive Disorders: Menstrual Problems Sexually Transmitted Disease: No HIV/AIDS: No Genitourinary: Yes (BLADDER SPASMS) Kidney Stones Gastrointestinal: Yes (difficulty swallowing) Gastroesophageal Reflux Musculoskeletal: Yes (CEREBRAL PALSY; CHRONIC SHOULDER PAIN ) Endocrine: Yes (OBESITY) Diabetes, Non-Insulin dep HEENT: No Loss of Vision: Denies Hearing Impairment: Denies Cancer: No Psychosocial: Yes Anxiety, Bipolar, Depression Integumentary: No Blood Disorders: No Adverse Reaction/Blood Tranf: No Family Medical History Completed stroke G8 SISTER, Onset:40's - 50 Lung cancer 19 FATHER, Onset:60 years & older Respiratory disorder 19 MOTHER, Onset:50's - 60 (copd) Heart Disease, Cancer, COPD, Stroke PAST SURGICAL HISTORY: -RIGHT SHOULDER REPLACEMENT -LEFT SHOULDER SURGERY -LEFT KNEE REPLACEMENT Physical Exam Vital Signs Vital Signs - First Documented 08/17/21 04:36 Temp 36.7 Pulse 76 Resp 16 B/P (MAP) 139/68 (91) Pulse Ox 96 O2 Delivery Room Air Capillary Refill : Less Than 3 Seconds Height, Weight, BMI Height: 5'0.00" Weight: 232lbs. 0oz. 105.005246lq; 41.00 BMI Method:Stated General Appearance: WD/WN, no apparent distress, obese HEENT: PERRL/EOMI, TMs normal, pharynx normal, other (TENDERNESS, SWELLING AND BRUISING TO LEFT CHEEK. NO TMJ OR MANDIBULAR TENDERNESS. NO TRISMUS. NO ORAL INJURY. MULTIPLE MISSING TEETH--NORMAL PER PT. NO LOOSE TEETH. 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, no motor/sensory deficits, alert, normal mood/affect, oriented x 3 Skin: normal color, warm/dry, ecchymosis (LEFT CHEEK) Progress/Results/Core Measures Results/Orders My Orders Orders - JARVIS PERRY DO Ct Head/Face/Cervical Wo (08/17/21 04:38) Chest 1 View, Ap/Pa Only (08/17/21 04:38) Pelvis (08/17/21 04:38) Shoulder, Right, 3 Views (08/17/21 04:47) Vital Signs/I&O 08/17/21 04:36 Temp 36.7 Pulse 76 Resp 16 B/P (MAP) 139/68 (91) Pulse Ox 96 O2 Delivery Room Air Blood Pressure Mean: 91 Progress Progress Note : Progress Note UNEVENTFUL ER STAY PT ABLE TO AMBULATE ON HER OWN WITH CANE Diagnostic Imaging Comments CT HEAD/MAXILLOFACIALS/CERVICAL SPINE--PER RADIOLOGIST REPORT AT 0520 FINDINGS: Brain: There is no hemorrhage or infarct. There is no mass, mass effect or midline shift. There is no hydrocephalus. Paranasal sinuses and mastoid air cells clear. IMPRESSION: 1. No acute intracranial process. CT cervical spine: There is multilevel facet hypertrophy bilaterally. Multilevel spur disc complexes suspected. Straightening of the normal curvature is noted but no subluxations or acute fractures appreciated. There is poor visualization of the lower cervical spine near the cervicothoracic junction due to streak artifact at the shoulders. Lung apices clear. Prominence of the thyroid gland is noted which could be better evaluated sonographically on a nonemergent basis. Prevertebral soft tissues are otherwise unremarkable. IMPRESSION: 1. Multilevel degenerative findings with no acute osseous abnormality 2. Prominent nodular appearing thyroid gland, nonemergent sonographic characterization recommended. CT maxillofacial: There is poor dentition, periodontal abscess should be clinically excluded. There are no fractures appreciated. No dislocations. Temporomandibular joints appear maintained. Both orbits and globes appear preserved with no post septal abnormalities appreciated. There is fat stranding and soft tissue prominence overlying the left cheek. There is mild mucosal thickening within the sinuses with no air-fluid levels appreciated. IMPRESSION: 1. Hematoma overlying the left cheek with no underlying fractures appreciated. 2. Poor dentition, periodontal abscess should be clinically excluded. XRAYS PER RADIOLOGIST REPORTS AT 0542 CXR- FINDINGS: Heart is slightly prominent. Pulmonary vasculature normal. Lungs and pleural spaces clear. IMPRESSION: 1. No acute cardiopulmonary process. PELVIS XRAY-- FINDINGS: There are no fractures or dislocations. Soft tissues appear unremarkable with calcifications in the pelvis. IMPRESSION: 1. Chronic findings with no acute osseous abnormality. RIGHT SHOULDER XRAY-- FINDINGS: 3 views of the shoulder. There is a reverse total shoulder prosthesis which appears well aligned. No fractures or evidence for loosening. There are degenerative findings at the acromioclavicular joint. IMPRESSION: 1. Chronic findings with no acute process. Reviewed: Reviewed by Me Departure Impression Primary Impression: Fall from standing Additional Impressions: Facial contusion Minor head injury with loss of consciousness CERVICAL SPINE STRAIN Right shoulder pain Disposition: HOME, SELF-CARE Condition: Stable Departure-Patient Inst. Decision time for Depature: 05:42 Referrals: [facility] (PCP/Family) Primary Care Physician Patient Instructions: Contusion (DC), Minor Head Injury, Neck Sprain (DC), Preventing Falls ED Add. Discharge Instructions: ICE TO SORE AREAS AT 20 MINUTE INTERVALS TYLENOL AND MOTRIN NEEDED FOR PAIN FOLLOW UP WITH YOUR DR IN 1 WEEK IF NO BETTER, RETURN TO ER IF WORSE All discharge instructions reviewed with patient and/or family. Voiced understanding. JARVIS PERRY DO Aug 17, 2021 04:50
--- NOTE | 2021-08-17 05:20 | Diagnostic Imaging Report ---
PROCEDURE: CT head, face, and cervical spine without contrast. TECHNIQUE: Multiple contiguous axial images were obtained through the head, neck, and facial bones without the use of intravenous contrast. Sagittal and coronal reformations through the cervical spine and facial bones were also performed. Auto Exposure Controls were utilized during the CT exam to meet ALARA standards for radiation dose reduction. INDICATION: Fall, small abrasions to the left cheek area, complaining of pain and soreness. EXAMINATION: CT of the brain, CT cervical spine, CT maxillofacial 08/17/[address] brain from 07/15/[address] cervical spine from 07/15/2020 FINDINGS: Brain: There is no hemorrhage or infarct. There is no mass, mass effect or midline shift. There is no hydrocephalus. Paranasal sinuses and mastoid air cells clear. IMPRESSION: 1. No acute intracranial process. CT cervical spine: There is multilevel facet hypertrophy bilaterally. Multilevel spur disc complexes suspected. Straightening of the normal curvature is noted but no subluxations or acute fractures appreciated. There is poor visualization of the lower cervical spine near the cervicothoracic junction due to streak artifact at the shoulders. Lung apices clear. Prominence of the thyroid gland is noted which could be better evaluated sonographically on a nonemergent basis. Prevertebral soft tissues are otherwise unremarkable. IMPRESSION: 1. Multilevel degenerative findings with no acute osseous abnormality 2. Prominent nodular appearing thyroid gland, nonemergent sonographic characterization recommended. CT maxillofacial: There is poor dentition, periodontal abscess should be clinically excluded. There are no fractures appreciated. No dislocations. Temporomandibular joints appear maintained. Both orbits and globes appear preserved with no post septal abnormalities appreciated. There is fat stranding and soft tissue prominence overlying the left cheek. There is mild mucosal thickening within the sinuses with no air-fluid levels appreciated. IMPRESSION: 1. Hematoma overlying the left cheek with no underlying fractures appreciated. 2. Poor dentition, periodontal abscess should be clinically excluded. Dictated by: Dictated on workstation # [id number]
--- NOTE | 2021-08-17 05:39 | Diagnostic Imaging Report ---
INDICATION: Fall, small abrasions. Soreness. EXAMINATION: Chest 08/17/2021 COMPARISON: 09/18/2016 FINDINGS: Heart is slightly prominent. Pulmonary vasculature normal. Lungs and pleural spaces clear. IMPRESSION: 1. No acute cardiopulmonary process. Dictated by: Dictated on workstation # [id number]
--- NOTE | 2021-08-17 05:40 | Diagnostic Imaging Report ---
INDICATION: Fall, abrasions EXAMINATION: Pelvis 08/17/2021 FINDINGS: There are no fractures or dislocations. Soft tissues appear unremarkable with calcifications in the pelvis. IMPRESSION: 1. Chronic findings with no acute osseous abnormality. Dictated by: Dictated on workstation # [id number]
--- NOTE | 2021-08-17 05:41 | Diagnostic Imaging Report ---
INDICATION: Fall, abrasions EXAMINATION: Right shoulder 08/17/2021 FINDINGS: 3 views of the shoulder. There is a reverse total shoulder prosthesis which appears well aligned. No fractures or evidence for loosening. There are degenerative findings at the acromioclavicular joint. IMPRESSION: 1. Chronic findings with no acute process. Dictated by: Dictated on workstation # [id number]
== END 2021-08-17 05:48 | disposition home or self-care (01) ==
LOC: EDUNIT# 04:32 → ER 04:34
DX: S16.1XXA Strain of muscle, fascia and tendon at neck level, initial encounter (principal); S00.83XA Contusion of other part of head, initial encounter; S09.90XA Unspecified injury of head, initial encounter; M25.511 Pain in right shoulder; E66.9 Obesity, unspecified; I10 Essential (primary) hypertension; G80.9 Cerebral palsy, unspecified; K21.9 Gastro-esophageal reflux disease without esophagitis; F41.9 Anxiety disorder, unspecified; F31.9 Bipolar disorder, unspecified; E78.5 Hyperlipidemia, unspecified; E11.9 Type 2 diabetes mellitus without complications; Z68.41 Body mass index [BMI] 40.0-44.9, adult; Z79.899 Other long term (current) drug therapy; W22.8XXA Striking against or struck by other objects, initial encounter
CPT/HCPCS: 70450; 70486; 71045; 72125; 72170; 73030

== ENCOUNTER 2021-09-01 12:29 | Emergency (ER) | payer MEDICARE, OTHER ==
[~2021-09-01] VITALS: Ht 152.4 cm; Wt 113.6 kg
--- NOTE | 2021-09-01 13:01 | ED General ---
General Chief Complaint: General Problems/Pain Stated Complaint: FELL HIT HEAD, SHAKES Source of Information: Patient, Family Exam Limitations: No Limitations History of Present Illness Date Seen by Provider: Sep 01, 2021 Time Seen by Provider: 12:36 Initial Comments 66yoF with PMH of DM, neuropathy, HTN, bipolar disorder that fell a couple weeks ago in her bathroom, came here, scans normal. Has been going to PT for shoulder issues and they noticed she was acting different so referred her here. Worsening recall, and confused at times. No new trauma. Allergies and Home Medications Allergies Coded Allergies: lisinopril (Unverified Allergy, Unknown, 01/16/18) niacin (Verified Allergy, Unknown, hives/rash, 09/16/14) Patient Home Medication List Home Medication List Reviewed: Yes Amlodipine Besylate (Amlodipine Besylate) 10 Mg Tablet, 10 MG PO DAILY, (Reported) Entered as Reported by: QUYEN LUCAS on 05/03/18 1233 Atorvastatin Calcium (Atorvastatin Calcium) 10 Mg Tablet, 10 MG PO HS, (Reported) Entered as Reported by: QUYEN LUCAS on 05/03/18 1233 Glipizide (Glipizide) 10 Mg Tablet, 10 MG PO DAILY, (Reported) Entered as Reported by: ALIS HURD on 04/11/17 1106 [place] Carbonate ([place] Carbonate) 300 Mg Capsule, 300 MG PO DAILY, (R eported) Entered as Reported by: QUYEN LUCAS on 05/03/18 1233 [place] Carbonate ([place] Carbonate) 300 Mg Capsule, 900 MG PO HS, (Reported) Entered as Reported by: QUYEN LUCAS on 05/03/18 1233 Pantoprazole Sodium (Protonix) 40 Mg Tablet.dr, 40 MG PO DAILY Prescribed by: CRISTINE RAYMOND on 05/08/18 1400 Quetiapine Fumarate (Quetiapine Fumarate) 100 Mg Tablet, 100 MG PO, (Reported) Entered as Reported by: ABDI GRIGGS on 03/28/20 0808 Solifenacin Succinate (Vesicare) 5 Mg Tablet, 5 MG PO DAILY, (Reported) Entered as Reported by: ALIS HURD on 05/08/18 1307 Venlafaxine HCl (Venlafaxine HCl) 75 Mg Tab, 225 MG PO DAILY, (Reported) Entered as Reported by: QUYEN LUCAS on 05/03/18 9803 Review of Systems Review of Systems Constitutional: No chills, No fever EENTM: No blurred vision Respiratory: No cough, No short of breath Cardiovascular: No chest pain Gastrointestinal: no symptoms reported Genitourinary: no symptoms reported Musculoskeletal: joint pain Skin: no symptoms reported Psychiatric/Neurological: No Symptoms Reported, Weakness (general) Hematologic/Lymphatic: No Symptoms Reported Immunological/Allergic: no symptoms reported All Other Systems Reviewed Negative Unless Noted: Yes Past [place]-Eoeuqw-Sgypri Hx Patient Social History Tobacco Use?: No Immunizations Up To Date Tetanus Booster (TDap): Unknown PED Vaccines UTD: No First/Initial COVID19 Vaccinat: 12/13 Second COVID19 Vaccination Nito: 01/13 Seasonal Allergies Seasonal Allergies: No Past Medical History Surgery/Hospitalization HX: L KNEE, T/A, HTN, HYPERLIPIDEMIA, NIDDM, GERD, CEREBRAL PALSEY, ANX/DEPRESSION Surgeries: Yes Joint Replacement, Orthopedic, Tonsillectomy Respiratory: No Currently Using CPAP: No Currently Using BIPAP: No Cardiac: Yes Hypertension Neurological: Yes Cerebral Palsy, Neuropathy Reproductive Disorders: No Female Reproductive Disorders: Menstrual Problems Sexually Transmitted Disease: No HIV/AIDS: No Genitourinary: Yes (BLADDER SPASMS) Kidney Stones Gastrointestinal: Yes (difficulty swallowing) Gastroesophageal Reflux Musculoskeletal: Yes (CEREBRAL PALSY; CHRONIC SHOULDER PAIN ) Endocrine: Yes (OBESITY) Diabetes, Non-Insulin dep HEENT: No Loss of Vision: Denies Hearing Impairment: Denies Cancer: No Psychosocial: Yes Anxiety, Bipolar, Depression Integumentary: No Blood Disorders: No Adverse Reaction/Blood Tranf: No Family Medical History Completed stroke G8 SISTER, Onset:40's - 50 Lung cancer 19 FATHER, Onset:60 years & older Respiratory disorder 19 MOTHER, Onset:50's - 60 (copd) Heart Disease, Cancer, COPD, Stroke PAST SURGICAL HISTORY: -RIGHT SHOULDER REPLACEMENT -LEFT SHOULDER SURGERY -LEFT KNEE REPLACEMENT Physical Exam Vital Signs Vital Signs - First Documented 09/01/21 12:37 Temp 36.5 Pulse 95 Resp 18 B/P (MAP) 142/87 (105) Pulse Ox 97 O2 Delivery Room Air Capillary Refill : Height, Weight, BMI Height: 5'0.00" Weight: 232lbs. 0oz. 105.167619pb; 41.00 BMI Method:Stated General Appearance: No Apparent Distress, WD/WN Eyes: Bilateral Eye Normal Inspection, Bilateral Eye PERRL HEENT: PERRL/EOMI, Normal ENT Inspection, Pharynx Normal Neck: Full Range of Motion, Normal Inspection, Non Tender, Supple Respiratory: Chest Non Tender, Lungs Clear, Normal Breath Sounds, No Accessory Muscle Use, No Respiratory Distress Cardiovascular: Regular Rate, Rhythm, Normal Peripheral Pulses Gastrointestinal: Normal Bowel Sounds, Non Tender, Soft; No Distended, No Guarding Back: Normal Inspection, No CVA Tenderness, No Vertebral Tenderness Extremity: Normal Capillary Refill, Normal Inspection, Normal Range of Motion, Non Tender, No Calf Tenderness, Pedal Edema Neurologic/Psychiatric: Alert, Oriented x3, No Motor/Sensory Deficits, Normal 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, 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 as 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 Skin: Normal Color, Warm/Dry Lymphatic: No Adenopathy Progress/Results/Core Measures Suspected Sepsis SIRS Temperature: Pulse: Respiratory Rate: Laboratory Tests 09/01/21 13:15: White Blood Count 8.9 Blood Pressure / Mean: Laboratory Tests 09/01/21 13:15: Creatinine 0.99, Platelet Count 291, Total Bilirubin 0.3 Results/Orders Lab Results Laboratory Tests Test 09/01/21 13:15 09/01/21 15:35 Range/Units White Blood Count 8.9 4.3-11.0 10^3/uL Red Blood Count 4.41 3.80-5.11 10^6/uL Hemoglobin 12.6 11.5-16.0 g/dL Hematocrit 39 35-52 % Mean Corpuscular Volume 88 80-99 fL Mean Corpuscular Hemoglobin 29 25-34 pg Mean Corpuscular Hemoglobin Concent 32 32-36 g/dL Red Cell Distribution Width 14.1 10.0-14.5 % Platelet Count 291 130-400 10^3/uL Mean Platelet Volume 10.2 9.0-12.2 fL Immature Granulocyte % (Auto) 1 % Neutrophils (%) (Auto) 72 42-75 % Lymphocytes (%) (Auto) 16 12-44 % Monocytes (%) (Auto) 8 0-12 % Eosinophils (%) (Auto) 3 0-10 % Basophils (%) (Auto) 1 0-10 % Neutrophils # (Auto) 6.4 1.8-7.8 10^3/uL Lymphocytes # (Auto) 1.4 1.0-4.0 10^3/uL Monocytes # (Auto) 0.7 0.0-1.0 10^3/uL Eosinophils # (Auto) 0.2 0.0-0.3 10^3/uL Basophils # (Auto) 0.1 0.0-0.1 10^3/uL Immature Granulocyte # (Auto) 0.0 0.0-0.1 10^3/uL Sodium Level 137 135-145 MMOL/L Potassium Level 4.3 3.6-5.0 MMOL/L Chloride Level 103 98-107 MMOL/L Carbon Dioxide Level 22 21-32 MMOL/L Anion Gap 12 5-14 MMOL/L Blood Urea Nitrogen 15 7-18 MG/DL Creatinine 0.99 0.60-1.30 MG/DL Estimat Glomerular Filtration Rate 56 BUN/Creatinine Ratio 15 Glucose Level 241 H 70-105 MG/DL Calcium Level 9.4 8.5-10.1 MG/DL Corrected Calcium 9.3 8.5-10.1 MG/DL Total Bilirubin 0.3 0.1-1.0 MG/DL Aspartate Amino Transf (AST/SGOT) 22 5-34 U/L Alanine Aminotransferase (ALT/SGPT) 35 0-55 U/L Alkaline Phosphatase 101 40-136 U/L Troponin I < 0.028 <0.028 NG/ML B-Type Natriuretic Peptide < 10.0 <100.0 PG/ML Total Protein 7.2 6.4-8.2 GM/DL Albumin 4.1 3.2-4.5 GM/DL Urine Color YELLOW Urine Clarity CLEAR Urine pH 6.5 5-9 Urine Specific Barrett <=1.005 1.016-1.022 Urine Protein NEGATIVE NEGATIVE Urine Glucose (UA) NEGATIVE NEGATIVE Urine Ketones NEGATIVE NEGATIVE Urine Nitrite NEGATIVE NEGATIVE Urine Bilirubin NEGATIVE NEGATIVE Urine Urobilinogen 0.2 < = 1.0 MG/DL Urine Leukocyte Esterase NEGATIVE NEGATIVE Urine RBC (Auto) NEGATIVE NEGATIVE Urine RBC NONE /HPF Urine WBC 0-2 /HPF Urine Squamous Epithelial Cells RARE /HPF Urine Crystals NONE /LPF Urine Bacteria TRACE /HPF Urine Casts NONE /LPF Urine Mucus NEGATIVE /LPF Urine Culture Indicated NO My Orders Orders - TISHA REAGAN MD Ct Head Wo (09/01/21 13:01) Chest 1 View, Ap/Pa Only (09/01/21 13:01) Cbc With Automated Diff (09/01/21 13:01) Comprehensive Metabolic Panel (09/01/21 13:01) Ua Culture If Indicated (09/01/21 13:01) [place] Level (09/01/21 13:01) Acetaminophen Tablet (Tylenol Tablet) (09/01/21 13:30) Bnp [place] (09/01/21 13:25) Troponin I [place] (09/01/21 13:25) Ekg Tracing (09/01/21 13:25) Lactated Ringers (Lr 1000 Ml Iv Solution (09/01/21 14:30) Medications Given in ED Current Medications Medications Dose Ordered Sig/Deborah Route Start Time Stop Time Status Last Admin Dose Admin Acetaminophen 1,000 mg ONCE ONCE PO 09/01/21 13:30 09/01/21 13:31 DC 09/01/21 14:43 1,000 MG Vital Signs/I&O 09/01/21 12:37 Temp 36.5 Pulse 95 Resp 18 B/P (MAP) 142/87 (105) Pulse Ox 97 O2 Delivery Room Air Capillary Refill : Progress Note : Progress Note 66-year-old female with above history coming in due to generally feeling off and cannot quite put her finger on it. ABCs were intact vitals were stable on presentation. Physical exam reassuring with no focal abnormalities. Specifically cranial nerves intact, and complete neuro exam normal. She has a normal gait for her per her baseline. EKG without any ischemic changes. Basic labs normal including normal electrolytes and kidney function. Negative cardiac biomarkers. Urinalysis without evidence of infection. Chest x-ray normal on my interpretation. CT head without any changes from prior recently. She was given a bolus of IV fluids. Overall she says she is feeling somewhat better. I believe she is stable for discharge with outpatient follow-up. She was sent home with strict return precautions. Of note, I think a lot of her symptoms can be explained by this fogginess and chest difficulty with concentration by her recent head injury, and likely she does have some degree of concussion. I have recommended that if things are not improving, she may want to get an MRI of her brain as she may be having many TIAs as well which would be hard to tell. Most importantly she is neuro intact right now. Also, her lithium level that we sherlyn today will be pending likely for some time, and this could be possible causing some of her symptoms if it does come back later elevated. ECG Initial ECG Impression Date: Sep 01, 2021 Initial ECG Impression Time: 13:31 Initial ECG Rate: 79 Initial ECG Rhythm: Normal Sinus Comment Narrow QRS, normal axis, T wave flattening in the inferior leads and T wave inversions in the precordial leads, no significant ST changes, nonspecific otherwise Diagnostic Imaging Diagonstic Imaging: CT (head) Comments [facility], [place] NAME: SANDRA MORELOS [facility] REC#: [id number] PT STATUS: REG ER : 1955 PHYSICIAN: TISHA REAGAN MD ADMIT DATE: 09/01/21/ER Draft Date of Exam:09/01/21 CT HEAD WO PROCEDURE: CT head without contrast. TECHNIQUE: Multiple contiguous axial images were obtained through the brain without the use of intravenous contrast. Auto Exposure Controls were utilized during the CT exam to meet ALARA standards for radiation dose reduction. INDICATION: Head injury, altered mental status. COMPARISON: CT head of 08/17/2021. FINDINGS: No intracranial hyperdense hemorrhage or space-occupying mass. No hydrocephalus or midline shift. Kenny-white matter differentiation is well preserved. Paranasal sinuses and mastoid air cells are clear. No skull fracture. IMPRESSION: No acute intracranial process by CT. Dictated on workstation # [id number] Dict: 09/01/21 1404 Trans: 09/01/21 1417 [id number] Interpreted by: PRECIOUS CHAUDHARY MD Electronically signed by: Departure Impression Primary Impression: Intermittent confusion Additional Impressions: History of recent fall Closed head injury Qualified Codes: S09.90XA - Unspecified injury of head, initial encounter Concussion Qualified Codes: S06.0X0A - Concussion without loss of consciousness, initial encounter Disposition: 01 HOME, SELF-CARE Condition: Stable Departure-Patient Inst. Decision time for Depature: 16:00 Referrals: [facility] (PCP/Family) Primary Care Physician Patient Instructions: Concussion in Adults Add. Discharge Instructions: You are seen in the emergency department for some mild confusion and just intermittent feelings of feeling off. Your CT head was normal, labs are normal including normal urinalysis. Your chest x-ray is normal. Was exactly what is going on but I do suspect you have some degree of a concussion which can cause all the symptoms. Take Tylenol for headaches if you have them. If symptoms do not improve I do recommend to get an MRI of your brain as an outpatient, please call your PCP about this. TISHA REAGAN MD Sep 01, 2021 13:01
[2021-09-01 13:23] LABS: BASOPHILS # (AUTO) 0.1 10^3/uL (0.0-0.1); BASOPHILS % (AUTO) 1 % (0-10); EOSINOPHILS # (AUTO) 0.2 10^3/uL (0.0-0.3); EOSINOPHILS % (AUTO) 3 % (0-10); HEMATOCRIT 39 % (35-52); HEMOGLOBIN 12.6 g/dL (11.5-16.0); LYMPHOCYTES # (AUTO) 1.4 10^3/uL (1.0-4.0); LYMPHOCYTES % (AUTO) 16 % (12-44); MEAN CORPUSCULAR HEMOGLOBIN 29 pg (25-34); MEAN CORPUSCULAR HGB CONC 32 g/dL (32-36); MEAN CORPUSCULAR VOLUME 88 fL (80-99); MEAN PLATELET VOLUME 10.2 fL (9.0-12.2); MONOCYTES # (AUTO) 0.7 10^3/uL (0.0-1.0); MONOCYTES % (AUTO) 8 % (0-12); NEUTROPHILS # (AUTO) 6.4 10^3/uL (1.8-7.8); NEUTROPHILS % (AUTO) 72 % (42-75); PLATELET COUNT 291 10^3/uL (130-400); WHITE BLOOD COUNT 8.9 10^3/uL (4.3-11.0)
[2021-09-01] MEDS ORDERED: LACTATED RINGERS 1,000 ML IV SCH (13:30)
[2021-09-01 13:39] LABS: ALBUMIN 4.1 GM/DL (3.2-4.5); POTASSIUM 4.3 MMOL/L (3.6-5.0)
[2021-09-01 13:40] LABS: CALCIUM 9.4 MG/DL (8.5-10.1)
[2021-09-01 13:42] LABS: TOTAL PROTEIN 7.2 GM/DL (6.4-8.2)
--- NOTE | 2021-09-01 13:43 | Diagnostic Imaging Report ---
INDICATION: Confusion. FINDINGS: The upright chest shows normal heart size and vascularity. The lungs are clear. There is no effusion or pneumothorax. There is no acute bony abnormality. IMPRESSION: No acute abnormality is seen with no change from 08/17/2021. Dictated by: Dictated on workstation # [id number]
[2021-09-01 13:44] LABS: BILIRUBIN,TOTAL 0.3 MG/DL (0.1-1.0)
[2021-09-01 13:45] LABS: CREATININE SERUM 0.99 MG/DL (0.60-1.30)
--- NOTE | 2021-09-01 14:17 | Diagnostic Imaging Report ---
PROCEDURE: CT head without contrast. TECHNIQUE: Multiple contiguous axial images were obtained through the brain without the use of intravenous contrast. Auto Exposure Controls were utilized during the CT exam to meet ALARA standards for radiation dose reduction. INDICATION: Head injury, altered mental status. COMPARISON: CT head of 08/17/2021. FINDINGS: No intracranial hyperdense hemorrhage or space-occupying mass. No hydrocephalus or midline shift. Kenny-white matter differentiation is well preserved. Paranasal sinuses and mastoid air cells are clear. No skull fracture. IMPRESSION: No acute intracranial process by CT. Dictated by: Dictated on workstation # [id number]
[2021-09-01] MEDS: LACTATED RINGERS 1,000 ML IV SCH (14:43)
[2021-09-01] MEDS: ACETAMINOPHEN 500 MG TAB (TYLENOL) PO ONE (14:43)
[2021-09-01 15:41] LABS: BILIRUBIN,URINE NEGATIVE (NEGATIVE); CLARITY,URINE CLEAR; COLOR,URINE YELLOW; GLUCOSE, URINE (UA) NEGATIVE (NEGATIVE); KETONES,URINE NEGATIVE (NEGATIVE); LEUKOCYTE ESTERASE ,URINE NEGATIVE (NEGATIVE); NITRITE,URINE NEGATIVE (NEGATIVE); PH,URINE 6.5 (5-9); PROTEIN,URINE NEGATIVE (NEGATIVE)
[2021-09-01 15:49] LABS: BACTERIA,URINE TRACE /HPF; SQUAMOUS EPITHELIAL CELL,UR RARE /HPF; WBC,URINE 0-2 /HPF
[2021-09-01 16:16] VITALS: BP 169/80
== END 2021-09-01 16:21 | disposition home or self-care (01) ==
LOC: EDUNIT# 12:29 → ER 12:31
DX: S06.0X0A Concussion without loss of consciousness, initial encounter (principal); R41.0 Disorientation, unspecified; I10 Essential (primary) hypertension; G80.9 Cerebral palsy, unspecified; K21.9 Gastro-esophageal reflux disease without esophagitis; F41.9 Anxiety disorder, unspecified; F31.9 Bipolar disorder, unspecified; E66.9 Obesity, unspecified; E11.9 Type 2 diabetes mellitus without complications; Z68.41 Body mass index [BMI] 40.0-44.9, adult; Z79.899 Other long term (current) drug therapy; W18.2XXA Fall in (into) shower or empty bathtub, initial encounter
CPT/HCPCS: 36415; 70450; 71045; 80053; 80178; 81000; 83880; 84484; 85025; 93005

== ENCOUNTER → 2021-11-03 | Outpatient (CLI) | payer MEDICARE, OTHER | LOC: CARD 08:16 | PROVIDERS: ATTEND Nurse Practitioner Family | DX: I35.1 Nonrheumatic aortic (valve) insufficiency (principal); I11.9 Hypertensive heart disease without heart failure | CPT/HCPCS: 93306 ==

== ENCOUNTER → 2021-11-19 | Outpatient (CLI) | payer MEDICARE, OTHER ==
[~2021-11-19] VITALS: Ht 152 cm; Wt 109.0 kg
[~2021-11-19] MED LIST changes: +REGADENOSON 0.4 MG/5 ML SYR (LEXISCAN) IV ONE
[2021-11-19] MEDS: CATHETER FLUSH 10 ML SYR IV PRN ×2 (07:30→09:18)
[2021-11-19 09:02] VITALS: BP 181/103
[2021-11-19 09:17] VITALS: BP 181/103
== END ==
LOC: CARD 07:45
PROVIDERS: ATTEND Nurse Practitioner Family
DX: I10 Essential (primary) hypertension (principal)
CPT/HCPCS: 78452; 93017; A9502

== ENCOUNTER 2022-03-25 18:25 | Emergency (ER) | payer MEDICARE, OTHER ==
[~2022-03-25] VITALS: Ht 152.4 cm; Wt 102.9 kg
[~2022-03-25 18:25] MED LIST changes: -REGADENOSON 0.4 MG/5 ML SYR (LEXISCAN) IV ONE
--- NOTE | 2022-03-25 18:59 | ED Fall/Injury ---
General Chief Complaint: Trauma-Non Activation Stated Complaint: FALL Source: patient Exam Limitations: no limitations History of Present Illness Date Seen by Provider: Mar 25, 2022 Time Seen by Provider: 19:41 Initial Comments Here with report of fall at one of the local caf's. She states that she tripped over a slight indention on the floor and landed on her left shoulder and arm. She is concerned about her left shoulder. Has pain from her left shoulder to her left elbow but has full range of motion of the elbow. She states that she tucked and rolled and did not hit her head. Denies any neck or back pain. Denies pain with deep breathing or chest pain. Denies abdominal pain. Denies other injury. Denies loss of consciousness. She is not on blood thinners. Occurred: just prior to arrival (Approximately 45 minutes ago) Severity: moderate Injuries/Pain Location: upper extremity (Left) Context: tripped Loss of Consciousness: no loss of consciousness Modifying Factors: Improves With Immobilization; Worse With Movement Associated Symptoms (Fall): No Abdominal Pain, No Headache, No Muscle Spasms, No Nausea/Vomiting, No Neck Pain, No Shortness of Air Allergies and Home Medications Allergies Coded Allergies: lisinopril (Unverified Allergy, Unknown, 01/16/18) niacin (Verified Allergy, Unknown, hives/rash, 09/16/14) Patient Home Medication List Home Medication List Reviewed: Yes Amlodipine Besylate (Amlodipine Besylate) 10 Mg Tablet, 10 MG PO DAILY, (Reported) Entered as Reported by: QUYEN LUCAS on 05/03/18 1233 Atorvastatin Calcium (Atorvastatin Calcium) 10 Mg Tablet, 10 MG PO HS, (Reported) Entered as Reported by: QUYEN LUCAS on 05/03/18 1233 Glipizide (Glipizide) 10 Mg Tablet, 10 MG PO DAILY, (Reported) Entered as Reported by: ALIS HURD on 04/11/17 1106 [place] Carbonate ([place] Carbonate) 300 Mg Capsule, 300 MG PO DAILY, (Reported) Entered as Reported by: QUYEN LUCAS on 05/03/18 1233 [place] Carbonate ([place] Carbonate) 300 Mg Capsule, 900 MG PO HS, (Reported) Entered as Reported by: QUYEN LUCAS on 05/03/18 1233 Pantoprazole Sodium (Protonix) 40 Mg Tablet.dr, 40 MG PO DAILY Prescribed by: CRISTINE RAYMOND on 05/08/18 1400 Quetiapine Fumarate (Quetiapine Fumarate) 100 Mg Tablet, 100 MG PO, (Reported) Entered as Reported by: ABDI GRIGGS on 03/28/20 0808 Solifenacin Succinate (Vesicare) 5 Mg Tablet, 5 MG PO DAILY, (Reported) Entered as Reported by: ALIS HURD on 05/08/18 1307 Venlafaxine HCl (Venlafaxine HCl) 75 Mg Tab, 225 MG PO DAILY, (Reported) Entered as Reported by: QUYEN LUCAS on 05/03/18 1233 Review of Systems Review of Systems Constitutional: see HPI; No chills, No fever Eyes: No Symptoms Reported Ears, Nose, Mouth, Throat: no symptoms reported Respiratory: No cough, No short of breath Cardiovascular: No chest pain, No edema Gastrointestinal: No abdominal pain, No nausea, No vomiting Musculoskeletal: joint pain, muscle pain Skin: No change in color, No lesions Psychiatric/Neurological: Denies Headache, Denies Weakness Past Amqkbjy-Ztkcno-Tvpozw Hx Patient Social History Tobacco Use?: No Use of E-Cig and/or Vaping dev: No Substance use?: No Alcohol Use?: No Immunizations Up To Date Tetanus Booster (TDap): Unknown PED Vaccines UTD: No First/Initial COVID19 Vaccinat: DECEMBER Second COVID19 Vaccination Nito: DECEMBER Seasonal Allergies Seasonal Allergies: No Past Medical History Surgery/Hospitalization HX: L KNEE, T/A, HTN, HYPERLIPIDEMIA, NIDDM, GERD, CEREBRAL PALSEY, ANX/DEPRESSION Surgeries: Yes Joint Replacement, Orthopedic, Tonsillectomy Respiratory: No Currently Using CPAP: No Currently Using BIPAP: No Cardiac: Yes Hypertension Neurological: Yes Cerebral Palsy, Neuropathy Reproductive Disorders: No Female Reproductive Disorders: Menstrual Problems Sexually Transmitted Disease: No HIV/AIDS: No Genitourinary: Yes (BLADDER SPASMS) Kidney Stones Gastrointestinal: Yes (difficulty swallowing) Gastroesophageal Reflux Musculoskeletal: Yes (CEREBRAL PALSY; CHRONIC SHOULDER PAIN ) Endocrine: Yes (OBESITY) Diabetes, Non-Insulin dep HEENT: No Loss of Vision: Denies Hearing Impairment: Denies Cancer: No Psychosocial: Yes Anxiety, Bipolar, Depression Integumentary: No Blood Disorders: No Adverse Reaction/Blood Tranf: No Family Medical History Reviewed Nursing Family Hx Completed stroke G8 SISTER, Onset:40's - 50 Lung cancer 19 FATHER, Onset:60 years & older Respiratory disorder 19 MOTHER, Onset:50's - 60 (copd) Heart Disease, Cancer, COPD, Stroke PAST SURGICAL HISTORY: -RIGHT SHOULDER REPLACEMENT -LEFT SHOULDER SURGERY -LEFT KNEE REPLACEMENT Physical Exam Vital Signs Vital Signs - First Documented 03/25/22 18:30 Temp 37.9 Pulse 88 Resp 14 B/P (MAP) 144/70 (94) Pulse Ox 98 O2 Delivery Room Air Capillary Refill : Height, Weight, BMI Height: 5'0.00" Weight: 232lbs. 0oz. 105.126451uc; 47.17 BMI Method:Stated General Appearance: WD/WN, no apparent distress HEENT: PERRL/EOMI, TMs normal, pharynx normal Neck: non-tender, full range of motion, supple, normal inspection Cardiovascular: regular rate, rhythm, no murmur Respiratory: chest non-tender, lungs clear, normal breath sounds Gastrointestinal: non tender, soft Back: normal inspection, no CVA tenderness, no vertebral tenderness Extremities: other (Tender and pain with range of motion to left shoulder and left upper arm to just above the elbow. No obvious deformity, swelling, bruising or abrasions to the areas of concern.) Neurologic/Psychiatric: alert, oriented x 3 Skin: normal color, warm/dry Royal Coma Score Best Eye Response: (4) Open Spontaneously Best Verbal Response: (5) Oriented Best Motor Response: (6) Obeys Commands Progress/Results/Core Measures Results/Orders My Orders Orders - ROCK SEYMOUR MD Tramadol Tablet (Ultram Tablet) (03/25/22 18:52) Shoulder, Left, 3 Views (03/25/22 18:52) Humerus, Left, 2 Views (03/25/22 18:52) Tramadol Tablet (Ultram Tablet) (03/25/22 20:07) Acetaminophen Tablet (Tylenol Tablet) (03/25/22 20:09) Catheter(Urinary) Insert & Ass 03,15 (03/25/22 20:26) Vital Signs/I&O 03/25/22 18:30 Temp 37.9 Pulse 88 Resp 14 B/P (MAP) 144/70 (94) Pulse Ox 98 O2 Delivery Room Air Progress Progress Note : Progress Note Seen and evaluated. We will get x-ray of the left shoulder and left humerus. Tramadol for pain ordered per patient request. We did discuss option of CT for head and neck. She flatly denies hitting her head. She does have some mild intermittent headaches since fall 2 months ago but she did have CT scan for that fall and it is not worse or changed at all today. She feels confident that she did not hit her head and she is not having any worsening symptoms so we will fo destiny CT of the head at this point but will be readdressed if symptoms change. Monitor patient. 2039: X-rays negative. I did add Tylenol 1 g p.o. for pain. She requested Galvez catheter for urination because it hurt to get up. She is much more comfortable now. Catheter removed and x-ray results noted and discussed with patient. Discharged home with return precautions. Patient verbalized understanding instructions and agreement with plan. Diagnostic Imaging Diagonstic Imaging: Xray Plain Films/CT/US/NM/MRI: other (Left shoulder and left humerus) Comments [facility], [place] NAME: SANDRA MORELOS [facility] REC#: [id number] PT STATUS: REG ER : 1955 PHYSICIAN: ROCK SEYMOUR MD ADMIT DATE: 03/25/22/ER Draft Date of Exam:03/25/22 SHOULDER, LEFT, 3 VIEWS INDICATION: Pain. COMPARISON: Imaging from the same date as well as from 01/22/2017. TECHNIQUE: Three radiographs of the left shoulder dated March 25, 2022. FINDINGS: Moderate degenerative changes of the acromioclavicular joint. Left total shoulder reverse arthroplasty is in place without evidence of hardware complication. No acute fracture or dislocation. No destructive osseous process. No suspicious radiopaque foreign body. IMPRESSION: 1. Left total shoulder arthroplasty without evidence of hardware complication or acute osseous abnormality. 2. Moderate degenerative changes. Dictated on workstation # [id number] Dict: 03/25/221947 Trans: 03/25/221951 [id number] Interpreted by: ZAN BOWLES MD Electronically signed by: Departure Impression Primary Impression: Contusion of left shoulder Qualified Codes: S40.012A - Contusion of left shoulder, initial encounter Disposition: 01 HOME, SELF-CARE Condition: Stable Departure-Patient Inst. Decision time for Depature: 20:40 Referrals: [facility] (PCP/Family) Primary Care Physician Patient Instructions: Shoulder Pain (DC) Add. Discharge Instructions: All discharge instructions reviewed with patient and/or family. Voiced understanding. Use sling for comfort as needed. You may take Tylenol/acetaminophen 1000 mg every 6-8 hours as needed for pain. Take other pain medications as directed. You may use ldfg-lto-ldsssav Icy Hot with lidocaine patches or cream, Aspercreme with lidocaine patches or cream, Salonpas with lidocaine patches or cream or similar items to area of concern per package directions. Return for worse pain, weakness, breathing problems or other concerns as needed. Follow-up with your doctor in a few days for recheck. Scripts Tramadol HCl (Tramadol HCl) 50 Mg Tablet 50 MG PO Q6H PRN for PAIN for 3 Days, #12 TAB 0 Refills Prov: ROCK SEYMOUR MD 03/25/22 ROCK SEYMOUR MD Mar 25, 2022 18:59
--- NOTE | 2022-03-25 19:52 | Diagnostic Imaging Report ---
INDICATION: Pain. COMPARISON: Imaging from the same date as well as from 01/22/2017. TECHNIQUE: Three radiographs of the left shoulder dated March 25, 2022. FINDINGS: Moderate degenerative changes of the acromioclavicular joint. Left total shoulder reverse arthroplasty is in place without evidence of hardware complication. No acute fracture or dislocation. No destructive osseous process. No suspicious radiopaque foreign body. IMPRESSION: 1. Left total shoulder arthroplasty without evidence of hardware complication or acute osseous abnormality. 2. Moderate degenerative changes. Dictated by: Dictated on workstation # [id number]
--- NOTE | 2022-03-25 19:54 | Diagnostic Imaging Report ---
INDICATION: Arm pain. COMPARISON: 03/02/2014 and imaging from 03/25/2022. TECHNIQUE: Two radiographs of the left humerus dated March 25, 2022. FINDINGS: Left total shoulder reverse arthroplasty is in place without evidence of hardware complication. Moderate degenerative changes of the acromioclavicular joint. No acute fracture or dislocation. No destructive osseous process. IMPRESSION: 1. Left total shoulder reverse arthroplasty without evidence of hardware complication or acute osseous abnormality. 2. Scattered degenerative changes. Dictated by: Dictated on workstation # [id number]
[2022-03-25] MEDS ORDERED: ACETAMINOPHEN 500 MG TAB (TYLENOL) PO STA (20:09)
[2022-03-25] MEDS ORDERED: TRM50T PO (20:42)
[2022-03-25 20:57] VITALS: BP 151/79
== END 2022-03-25 20:57 | disposition home or self-care (01) ==
LOC: EDUNIT# 18:25 → ER 18:31
DX: S40.012A Contusion of left shoulder, initial encounter (principal); W01.198A Fall on same level from slipping, tripping and stumbling with subsequent striking against other object, initial encounter; Y92.511 Restaurant or cafe as the place of occurrence of the external cause
CPT/HCPCS: 51702; 73030; 73060

== ENCOUNTER 2022-04-02 01:36 | Emergency (ER) | payer MEDICARE, OTHER ==
--- NOTE | 2022-04-02 02:19 | ED Upper Extremity ---
General Chief Complaint: Upper Extremity Stated Complaint: ARM PAIN Nursing Triage Note: TO ED VIA POV AND AMBULATORY TO ROOM 6 WITH C/O CONTINUED LEFT ARM PAIN. SEEN IN ER 03/25/22 FOR SAME COMPLAINT AFTER FALL. RX TRAMADOL GIVEN THEN HAS MADE PT SICK AND STATES SHE IS ONLY ABLE TO TOLERATE TYLENOL WHICH SHE LAST TOOK YESTERDAY. PT STATES SHE HAS BEEN STAYING WITH WHO IS CURRENTLY ON MEDICAL FLOOR AT THIS TIME. Source: patient Exam Limitations: no limitations History of Present Illness Date Seen by Provider: Apr 02, 2022 Time Seen by Provider: 01:37 Initial Comments 66yoF here for L arm pain. She had left shoulder replacement by Dr. Hernandez in [place] in December. Had been working with therapy but never did get full ROM back. Fell over a week ago and has had pain since then. The pain is sharp, worse with movement and trying to pick things up. Has tried tylenol which did not help. Took tramadol but felt sick to her stomach so does not like to take it. Her is a patient upstairs and she has been staying in the chair a lot, and believes the pain is worse because of that. Otherwise denies any chest pain, SOA, abd pain, n/v/d, weakness, numbness, fever, more recent falls, or any other concerns. Allergies and Home Medications Allergies Coded Allergies: lisinopril (Unverified Allergy, Unknown, 01/16/18) niacin (Verified Allergy, Unknown, hives/rash, 09/16/14) Patient Home Medication List Home Medication List Reviewed: Yes Amlodipine Besylate (Amlodipine Besylate) 10 Mg Tablet, 10 MG PO DAILY, (Reported) Entered as Reported by: QUYEN LUCAS on 05/03/18 1233 Atorvastatin Calcium (Atorvastatin Calcium) 10 Mg Tablet, 10 MG PO HS, (Reported) Entered as Reported by: QUYEN LUCAS on 05/03/18 1233 Glipizide (Glipizide) 10 Mg Tablet, 10 MG PO DAILY, (Reported) Entered as Reported by: ALIS HURD on 04/11/17 1106 Lidocaine (Lidocaine 5% Patch) 5 % Adh..patch, 1 EACH TP Q12H PRN for Neuropathic pain Prescribed by: TISHA REAGAN on 04/02/22 0233 [place] Carbonate ([place] Carbonate) 300 Mg Capsule, 300 MG PO DAILY, (Reported) Entered as Reported by: QUYEN LUCAS on 05/03/18 1233 [place] Carbonate ([place] Carbonate) 300 Mg Capsule, 900 MG PO HS, (Reported) Entered as Reported by: QUYEN LUCAS on 05/03/18 1233 Naproxen (Naproxen) 250 Mg Tablet, 250 MG PO Q12H Prescribed by: TISHA REAGAN on 04/02/22 0234 Pantoprazole Sodium (Protonix) 40 Mg Tablet.dr, 40 MG PO DAILY Prescribed by: CRISTINE RAYMOND on 05/08/18 1400 Quetiapine Fumarate (Quetiapine Fumarate) 100 Mg Tablet, 100 MG PO, (Reported) Entered as Reported by: ABDI GRIGGS on 03/28/20 0808 Solifenacin Succinate (Vesicare) 5 Mg Tablet, 5 MG PO DAILY, (Reported) Entered as Reported by: ALIS HURD on 05/08/18 1307 Tramadol HCl (Tramadol HCl) 50 Mg Tablet, 50 MG PO Q6H PRN for PAIN Prescribed by: ROCK SEYMOUR on 03/25/22 204 Venlafaxine HCl (Venlafaxine HCl) 75 Mg Tab, 225 MG PO DAILY, (Reported) Entered as Reported by: QUYEN LUCAS on 05/03/18 1233 Review of Systems Constitutional: no symptoms reported EENTM: no symptoms reported Respiratory: no symptoms reported Cardiovascular: no symptoms reported Gastrointestinal: no symptoms reported Genitourinary: no symptoms reported Musculoskeletal: joint pain Skin: no symptoms reported Psychiatric/Neurological: No Symptoms Reported All Other Systems Reviewed Negative Unless Noted: Yes Past Ttgzuyd-Fapugv-Prsbfx Hx Patient Social History Tobacco Use?: No Substance use?: No Alcohol Use?: No Immunizations Up To Date Tetanus Booster (TDap): Unknown PED Vaccines UTD: No First/Initial COVID19 Vaccinat: December COVID19 Vaccination Nito: December COVID19 Vaccination Date: DECEMBER Seasonal Allergies Seasonal Allergies: No Past Medical History Surgery/Hospitalization HX: L KNEE, T/A, HTN, HYPERLIPIDEMIA, NIDDM, GERD, CEREBRAL PALSEY, ANX/DEPRESSION Surgeries: Yes Joint Replacement, Orthopedic, Tonsillectomy Respiratory: No Currently Using CPAP: No Currently Using BIPAP: No Cardiac: Yes Hypertension Neurological: Yes Cerebral Palsy, Neuropathy Reproductive Disorders: No Female Reproductive Disorders: Menstrual Problems Sexually Transmitted Disease: No HIV/AIDS: No Genitourinary: Yes (BLADDER SPASMS) Kidney Stones Gastrointestinal: Yes (difficulty swallowing) Gastroesophageal Reflux Musculoskeletal: Yes (CEREBRAL PALSY; CHRONIC SHOULDER PAIN ) Endocrine: Yes (OBESITY) Diabetes, Non-Insulin dep HEENT: No Loss of Vision: Denies Hearing Impairment: Denies Cancer: No Psychosocial: Yes Anxiety, Bipolar, Depression Integumentary: No Blood Disorders: No Adverse Reaction/Blood Tranf: No Family Medical History Completed stroke G8 SISTER, Onset:40's - 50 Lung cancer 19 FATHER, Onset:60 years & older Respiratory disorder 19 MOTHER, Onset:50's - 60 (copd) Heart Disease, Cancer, COPD, Stroke PAST SURGICAL HISTORY: -RIGHT SHOULDER REPLACEMENT -LEFT SHOULDER SURGERY -LEFT KNEE REPLACEMENT Physical Exam Vital Signs Vital Signs - First Documented 04/02/22 01:55 Temp 36.2 Pulse 69 Resp 18 B/P (MAP) 148/87 (107) Pulse Ox 98 O2 Delivery Room Air Capillary Refill : Less Than 3 Seconds Height, Weight, BMI Height: 5'0.00" Weight: 232lbs. 0oz. [id number]; 44.00 BMI Method:Stated General Appearance: WD/WN, no apparent distress HEENT: PERRL/EOMI, normal ENT inspection, pharynx normal Neck: non-tender, full range of motion, supple, normal inspection Cardiovascular: regular rate, rhythm, no edema, no murmur Respiratory: chest non-tender, lungs clear, normal breath sounds, no respiratory distress, no accessory muscle use Gastrointestinal: normal bowel sounds, non tender, soft; No distended, No guarding, No rebound Back: normal inspection Shoulder: normal inspection, limited ROM (Can forward elevate roughly 20 degrees, can abduct left shoulder roughl 20 degrees actively, passively can forward elevate 60 degrees and abduct 60 degrees with pain, decree strength in rotator cuff bilaterally, normal distal sensation and motor exam of the hand, normal distal pulses) Elbow/Forearm: normal inspection, non-tender, no evidence of injury, normal ROM Neurologic/Tendon: normal sensation, normal motor functions, normal tendon functions Neurologic/Psychiatric: no motor/sensory deficits, alert, normal mood/affect Skin: normal color, warm/dry Lymphatic: no adenopathy Progress/Results/Core Measures Results/Orders My Orders Orders - TISHA REAGAN MD Naproxen Tablet (Naprosyn Tablet) (04/02/22 02:30) Naproxen Tablet (Naprosyn Tablet) (04/02/22 02:32) Medications Given in ED Current Medications Medications Dose Ordered Sig/Deborah Route Start Time Stop Time Status Last Admin Dose Admin Naproxen 250 mg ONCE ONCE PO 04/02/22 02:30 04/02/22 02:31 DC 04/02/22 02:37 250 MG Vital Signs/I&O 04/02/22 04/02/22 01:55 02:43 Temp 36.2 36.2 Pulse 69 72 Resp 18 16 B/P (MAP) 148/87 (107) 145/86 Pulse Ox 98 98 O2 Delivery Room Air Room Air Blood Pressure Mean: 107 Progress Progress Note : Progress Note 66-year-old female with above history coming in due to left shoulder pain in the setting of relatively recently having shoulder replacement and falling over a week ago. ABCs were intact and vitals were stable on presentation. Physical exam with decreased active and passive range of motion with pain. I reviewed the x-ray that she had in the emergency department on March 25 and she had a reverse shoulder replacement with hardware being intact and no fracture on my interpretation. She tried Tylenol today, we will give her naproxen. She says tramadol makes her sick to her stomach so would not want to try any other opioids. She has been out of therapy, and I believe her shoulder is very stiff from the replacement and she has not got mobility back. I believe a lot of her pain is due to the stiffness that is persisted. I will recommend she follow back up with physical therapy, which she says she is able to do when her gets out of the hospital here. I also will have her follow back up with her orthopedic surgeon. Departure Impression Primary Impression: Stiffness of left shoulder joint Additional Impression: Left shoulder pain Qualified Codes: M25.512 - Pain in left shoulder Disposition: HOME, SELF-CARE Condition: Stable Departure-Patient Inst. Decision time for Depature: 02:32 Referrals: [facility] (PCP/Family) Primary Care Physician Patient Instructions: Shoulder Pain ED Add. Discharge Instructions: I would try alternative therapies such as a heating pad. I also sent a lidocaine patch which she can put on the area that hurts the most to see if that helps. Do not mix this with a heating pad as you may accidentally burn yourself that she cannot feel it. I would take Tylenol as it is the safest medicine. You can take naproxen if it does not feeling better. He can try the tramadol again with a full stomach to see if you are nauseous when you have eaten with it. Otherwise please continue physical therapy because I think a lot of your pain is because your shoulder is so stiff still. Follow back up with Dr. Hernandez if things are not improving Scripts Naproxen (Naproxen) 250 Mg Tablet 250 MG PO Q12H for 14 Days, #28 TAB Prov: TISHA REAGAN MD 04/02/22 Lidocaine (Lidocaine 5% Patch) 5 % Adh..patch 1 EACH TP Q12H PRN for Neuropathic pain MDD 2 for 14 Days, #28 PATCH 2 patches max for 12 hours, then 12 hours patch-free period. Prov: TISHA REAGAN MD 04/02/22 Work/School Note: Work Release Form Date Seen in the Emergency Department: Apr 02, 2022 Return to Work: Apr 04, 2022 Restrictions: No Restrictions TISHA REAGAN MD Apr 02, 2022 02:19
[2022-04-02] MEDS ORDERED: NAPROXEN 250 MG (NAPROSYN) TABLET PO ONE ×2 (02:30→02:32)
[2022-04-02] MEDS ORDERED: LIDO700A45 TP (02:33)
[2022-04-02] MEDS ORDERED: NAPR-1088 PO (02:34)
[2022-04-02 02:43] VITALS: BP 145/86
== END 2022-04-02 02:43 | disposition home or self-care (01) ==
LOC: EDUNIT# 01:36 → ER 01:37
DX: M25.612 Stiffness of left shoulder, not elsewhere classified (principal); E66.9 Obesity, unspecified; Z96.642 Presence of left artificial hip joint; Z68.41 Body mass index [BMI] 40.0-44.9, adult
CPT/HCPCS: 99283

== ENCOUNTER 2022-05-02 03:35 | Emergency (ER) | payer MEDICARE, OTHER ==
[~2022-05-02] VITALS: Ht 152.4 cm; Wt 101.4 kg
[~2022-05-02 03:35] MED LIST changes: +LIDO700A45 TP; +NAPR-1088 PO
--- NOTE | 2022-05-02 03:50 | ED Upper Extremity ---
General Stated Complaint: LEFT SHOULDER PX Source: patient (EXTREMELY DIFFICULT HISTORIAN--RAMBLES ON NON-STOP, DIFFICULT TO KEEP ON SUBJECT) History of Present Illness Date Seen by Provider: May 02, 2022 Time Seen by Provider: 03:37 Initial Comments PT ARRIVES VIA EMS FROM HOME C/O LEFT SHOULDER PAIN HAS CHRONIC BILATERAL SHOULDER PAIN AND HAD LEFT SHOULDER REPLACEMENT IN DECEMBER OF THIS YEAR, AND RIGHT SHOULDER REPLACEMENT 6 MONTHS BEFORE THAT--DONE BY DR. BLAIR AT [facility] 5 WEEKS AGO, SHE FELL AT "[employer] AND INJURED HER LEFT SHOULDER--WAS SEEN HERE 03/25/22 INITIALLY, AND THEN AGAIN 04/02/22 FOR CONTINUED PAIN WAS SEEN HERE AND XRAYS WERE DONE, PT STATE SHE WAS TOLD NOTHING WAS BROKEN AND ADVISED TO TAKE NAPROXEN AND TYLENOL PT WAS GIVEN RX FOR TRAMADOL 03/25/22 AND RX'S FOR NAPROXEN AND LIDOCAINE PATCH ON 04/02/22 STATES "NOTHING HELPS" --HAS ONLY TAKEN TYLENOL AT 0200 THIS AM, OTHERWISE HAS NOT BEEN TAKING ANYTHING FOR PAIN FOR THE LAST 4-5 WEEKS. HAS NOT ATTEMPTED TO FOLLOW UP WITH ANYONE SINCE THEN, HAS NOT CONTACTED HER ORTHOPEDIC SURGEON ABOUT THIS STATES "I'VE BEEN DOING MY OWN PHYSICAL THERAPY" NO PARESTHESIAS OR MOTOR DEFICITS. SYMPTOMS ARE NO DIFFERENT TODAY IN ANY WAY. PCP: SHIVAM, RAMONA MAE Allergies and Home Medications Allergies Coded Allergies: lisinopril (Unverified Allergy, Unknown, 01/16/18) niacin (Verified Allergy, Unknown, hives/rash, 09/16/14) Patient Home Medication List Amlodipine Besylate (Amlodipine Besylate) 10 Mg Tablet, 10 MG PO DAILY, (Reported) Entered as Reported by: QUYEN LUCAS on 05/03/18 1233 Atorvastatin Calcium (Atorvastatin Calcium) 10 Mg Tablet, 10 MG PO HS, (Reported) Entered as Reported by: QUYEN LUCAS on 05/03/18 1233 Glipizide (Glipizide) 10 Mg Tablet, 10 MG PO DAILY, (Reported) Entered as Reported by: ALIS HURD on 04/11/17 1106 Lidocaine (Lidocaine 5% Patch) 5 % Adh..patch, 1 EACH TP Q12H PRN for Neuropathic pain Prescribed by: TISHA REAGAN on 04/02/22 0233 [place] Carbonate ([place] Carbonate) 300 Mg Capsule, 300 MG PO DAILY, (Reported) Entered as Reported by: QUYEN LUCAS on 05/03/18 1233 [place] Carbonate ([place] Carbonate) 300 Mg Capsule, 900 MG PO HS, (Reported) Entered as Reported by: QUYEN LUCAS on 05/03/18 1233 Naproxen (Naproxen) 250 Mg Tablet, 250 MG PO Q12H Prescribed by: TISHA REAGAN on 04/02/22 0234 Pantoprazole Sodium (Protonix) 40 Mg Tablet.dr, 40 MG PO DAILY Prescribed by: CRISTINE RAYMOND on 05/08/18 1400 Quetiapine Fumarate (Quetiapine Fumarate) 100 Mg Tablet, 100 MG PO, (Reported) Entered as Reported by: ABDI GRIGGS on 03/28/20 0808 Solifenacin Succinate (Vesicare) 5 Mg Tablet, 5 MG PO DAILY, (Reported) Entered as Reported by: ALIS HURD on 05/08/18 1307 Tramadol HCl (Tramadol HCl) 50 Mg Tablet, 50 MG PO Q6H PRN for PAIN Prescribed by: ROCK SEYMOUR on 03/25/22 2043 Venlafaxine HCl (Venlafaxine HCl) 75 Mg Tab, 225 MG PO DAILY, (Reported) Entered as Reported by: QUYEN LUCAS on 05/03/18 1233 Review of Systems Constitutional: no symptoms reported Respiratory: No short of breath Cardiovascular: No chest pain Musculoskeletal: see HPI Skin: no symptoms reported Psychiatric/Neurological: No Symptoms Reported; Denies Numbness, Denies Paresthesia, Denies Tingling, Denies Weakness Past Jwujazp-Eayunt-Scirnl Hx Patient Social History Tobacco Use?: No Substance use?: No Alcohol Use?: No Immunizations Up To Date Tetanus Booster (TDap): Unknown PED Vaccines UTD: No First/Initial COVID19 Vaccinat: December COVID19 Vaccination Nito: December COVID19 Vaccination Date: DECEMBER Seasonal Allergies Seasonal Allergies: No Past Medical History Surgery/Hospitalization HX: L KNEE, T/A, HTN, HYPERLIPIDEMIA, NIDDM, GERD, CEREBRAL PALSY, ANX/DEPRESSION Surgeries: Yes Joint Replacement, Orthopedic, Tonsillectomy Respiratory: No Currently Using CPAP: No Currently Using BIPAP: No Cardiac: Yes High Cholesterol, Hypertension Neurological: Yes Cerebral Palsy, Neuropathy Reproductive Disorders: No Female Reproductive Disorders: Menstrual Problems Sexually Transmitted Disease: No HIV/AIDS: No Genitourinary: Yes (BLADDER SPASMS; INCONTINENCE) Kidney Stones Gastrointestinal: Yes (difficulty swallowing) Gastroesophageal Reflux Musculoskeletal: Yes (CEREBRAL PALSY; CHRONIC SHOULDER PAIN ) Arthritis Endocrine: Yes (OBESITY) Diabetes, Non-Insulin dep HEENT: No Loss of Vision: Denies Hearing Impairment: Denies Cancer: No Psychosocial: Yes Anxiety, Bipolar, Depression Integumentary: No Blood Disorders: No Adverse Reaction/Blood Tranf: No Family Medical History Completed stroke G8 SISTER, Onset:40's - 50 Lung cancer 19 FATHER, Onset:60 years & older Respiratory disorder 19 MOTHER, Onset:50's - 60 (copd) Heart Disease, Cancer, COPD, Stroke PAST SURGICAL HISTORY: -RIGHT SHOULDER REPLACEMENT -LEFT SHOULDER SURGERY AND REPLACEMENT -LEFT KNEE REPLACEMENT Physical Exam Vital Signs Vital Signs - First Documented 05/02/22 03:38 Temp 36.6 Pulse 84 Resp 20 B/P (MAP) 177/105 (129) Pulse Ox 96 O2 Delivery Room Air Capillary Refill : Height, Weight, BMI Height: 5'0.00" Weight: 232lbs. 0oz. 105.378408tw; 44.00 BMI Method:Stated General Appearance: WD/WN, no apparent distress, obese, other (DOES NOT APPEAR TO BE IN ANY DISCOMFORT OR DISTRESS--TALKS NON-STOP AT GREAT LENGTH--DIFFICULT TO KEEP ON SUBJECT, ) Neck: non-tender Cardiovascular: normal peripheral pulses, regular rate, rhythm Respiratory: chest non-tender, normal breath sounds Shoulder: no evidence of injury; No ecchymosis; limited ROM (DUE TO PAIN ), pain; No soft tissue tenderness (SHOULDER IS NOT TENDER TO PALPATION--STATES "IT JUST HURTS" ), No swelling Elbow/Forearm: normal inspection Wrist: Yes normal inspection Hand: normal inspection Neurologic/Tendon: normal sensation, normal motor functions, normal tendon functions Neurologic/Psychiatric: casing grader II-XII nml as tested, no motor/sensory deficits, alert, normal mood/affect, oriented x 3 Skin: normal color, warm/dry; No ecchymosis Progress/Results/Core Measures Results/Orders My Orders Orders - JARVIS PERRY DO Shoulder, Left, 3 Views (05/02/22 03:45) Vital Signs/I&O 8/8/22 03:38 Temp 36.6 Pulse 84 Resp 20 B/P (MAP) 177/105 (129) Pulse Ox 96 O2 Delivery Room Air Progress Progress Note : Progress Note PT TRANSFERS HERSELF FROM EMS COT TO ER COT WITHOUT ANY ASSIST PT GETS HERSELF OUT OF BED, AND GETS HER WHEELED WALKER WITH HANDLES AND HAND BRAKES, AND WALKS HERSELF THE THE BATHROOM AND BACK AND GETS HERSELF BACK INTO BED--FREELY USING BOTH OF HER ARMS EQUALLY AND WITHOUT DIFFICULTY. WALKS QUICKLY WITHOUT DIFFICULTY. PT LATER STATES SHE HAS AN APPOINTMENT WITH DR. BLAIR TOMORROW 05/03/22 FOR THIS PROBLEM Diagnostic Imaging Comments XRAYS LEFT SHOULDER--NO ACUTE PROCESS, HARDWARE IN PLACE--PENDING RADIOLOGIST REVIEW Reviewed: Reviewed by Me Departure Impression Primary Impression: Left shoulder pain Disposition: HOME, SELF-CARE Condition: Stable Departure-Patient Inst. Decision time for Depature: 05:14 Referrals: [facility] (PCP/Family) Primary Care Physician Patient Instructions: Shoulder Pain ED Add. Discharge Instructions: CONTINUE YOUR REGULAR MEDICATIONS PRESCRIBED KEEP YOUR APPOINTMENT WITH DR. BLAIR TOMORROW SCHEDULED Scripts Diclofenac Sodium (Voltaren Arthritis Pain) 1 % Gel..gram. 20 GM TP TID, #1 EA Prov: JARVIS PERRY DO 05/02/22 Ketorolac Tromethamine (Ketorolac Tromethamine) 10 Mg Tablet 10 MG PO Q6H for Pain, #15 TAB Prov: JARVIS PERRY DO 05/02/22 JARVIS PERRY DO May 02, 2022 03:50
[2022-05-02 05:13] VITALS: BP 150/99
[2022-05-02] MEDS ORDERED: DICL20GE TP (05:15)
[2022-05-02] MEDS ORDERED: KETOROLAC 60 MG/2 ML VIAL IM ONE (05:15)
[2022-05-02] MEDS ORDERED: KETO10TA PO (05:15)
--- NOTE | 2022-05-02 06:33 | Diagnostic Imaging Report ---
Indication: Left shoulder pain 3 views of left shoulder show postsurgical changes from reverse arthroplasty of the shoulder. The hardware appears to be secure. There is no periprosthetic fracture or dislocation. IMPRESSION: Postsurgical changes in the left shoulder. No acute abnormality seen. Dictated by: Dictated on workstation # [id number]
== END 2022-05-02 05:38 | disposition home or self-care (01) ==
LOC: EDUNIT# 03:35 → ER 03:36
DX: M25.512 Pain in left shoulder (principal); E66.9 Obesity, unspecified; Z68.41 Body mass index [BMI] 40.0-44.9, adult
CPT/HCPCS: 73030

== ENCOUNTER 2023-01-07 16:07 | Emergency (ER) | payer MEDICARE, OTHER ==
[~2023-01-07 16:07] MED LIST changes: +DICL20GE TP; +KETO10TA PO
--- NOTE | 2023-01-07 16:34 | ED General ---
General Chief Complaint: Psych/Social Disorder Stated Complaint: NOT SLEEPING Nursing Triage Note: PT BROUGHT IN BY [facility] FROM HOME WITH COMPLAINT OF NOT FEELING WELL, UNABLE TO SLEEP, STUTTERING HER WORDS, AND FEELING JITTERY. STATES SHE IS BIPOLAR AND WAS IN A MANIC PHASE AND WAS RESTARTED ON HER LITHIUM AND STARTED ON OLANZAPINE. STATES SHE IS CONCERNED SHE IS HAVING A REACTION TO THE OLANZAPINE Source of Information: Patient Exam Limitations: No Limitations History of Present Illness Date Seen by Provider: Jan 07, 2023 Time Seen by Provider: 16:12 Allergies and Home Medications Allergies Coded Allergies: lisinopril (Unverified Allergy, Unknown, 01/16/18) niacin (Verified Allergy, Unknown, hives/rash, 09/16/14) Patient Home Medication List Home Medication List Reviewed: Yes Amlodipine Besylate (Amlodipine Besylate) 10 Mg Tablet, 10 MG PO DAILY, (Reported) Entered as Reported by: QUYEN LUCAS on 05/03/18 1233 Atorvastatin Calcium (Atorvastatin Calcium) 10 Mg Tablet, 10 MG PO HS, (Reported) Entered as Reported by: QUYEN LUCAS on 05/03/18 1233 Diclofenac Sodium (Voltaren Arthritis Pain) 1 % Gel..gram., 20 GM TP TID Prescribed by: JARVIS PERRY on 05/02/22 0515 Glipizide (Glipizide) 10 Mg Tablet, 10 MG PO DAILY, (Reported) Entered as Reported by: ALIS HURD on 04/11/17 1106 Ketorolac Tromethamine (Ketorolac Tromethamine) 10 Mg Tablet, 10 MG PO Q6H Prescribed by: JARVIS PERRY on 05/02/22 0515 Lidocaine (Lidocaine 5% Patch) 5 % Adh..patch, 1 EACH TP Q12H PRN for Neuropathic pain Prescribed by: TISHA REAGAN on 04/02/22 0233 [place] Carbonate ([place] Carbonate) 300 Mg Capsule, 300 MG PO DAILY, (Reported) Entered as Reported by: QUYEN LUCAS on 05/03/18 1233 [place] Carbonate ([place] Carbonate) 300 Mg Capsule, 900 MG PO HS, (Reported) Entered as Reported by: QUYEN LUCAS on 05/03/18 1233 Naproxen (Naproxen) 250 Mg Tablet, 250 MG PO Q12H Prescribed by: TISHA REAGAN on 04/02/22 0234 Pantoprazole Sodium (Protonix) 40 Mg Tablet.dr, 40 MG PO DAILY Prescribed by: CRISTINE RAYMOND on 05/08/18 1400 Quetiapine Fumarate (Quetiapine Fumarate) 100 Mg Tablet, 100 MG PO, (Reported) Entered as Reported by: ABDI GRIGGS on 03/28/20 0808 Solifenacin Succinate (Vesicare) 5 Mg Tablet, 5 MG PO DAILY, (Reported) Entered as Reported by: ALIS HURD on 05/08/18 1307 Tramadol HCl (Tramadol HCl) 50 Mg Tablet, 50 MG PO Q6H PRN for PAIN Prescribed by: ROCK SEYMOUR on 03/25/22 204 Venlafaxine HCl (Venlafaxine HCl) 75 Mg Tab, 225 MG PO DAILY, (Reported) Entered as Reported by: QUYEN LUCAS on 05/03/18 1233 Review of Systems Review of Systems Constitutional: see HPI EENTM: no symptoms reported Respiratory: no symptoms reported Cardiovascular: no symptoms reported Gastrointestinal: no symptoms reported Genitourinary: no symptoms reported Musculoskeletal: no symptoms reported Skin: no symptoms reported Psychiatric/Neurological: Anxiety, Other (feeling jittery) Past Qcpejee-Hqzzaw-Xxfmvu Hx Patient Social History Tobacco Use?: No Use of E-Cig and/or Vaping dev: No Substance use?: No Alcohol Use?: No Pt feels they are or have been: No Immunizations Up To Date Tetanus Booster (TDap): Unknown PED Vaccines UTD: No First/Initial COVID19 Vaccinat: UNKNOWN Second COVID19 Vaccination Nito: UNKNOWN Third COVID19 Vaccination Date: UNKNOWN Seasonal Allergies Seasonal Allergies: No Past Medical History Surgery/Hospitalization HX: L KNEE, T/A, HTN, HYPERLIPIDEMIA, NIDDM, GERD, CEREBRAL PALSY, ANX/DEPRESSION Surgeries: Yes Joint Replacement, Orthopedic, Tonsillectomy Respiratory: No Currently Using CPAP: No Currently Using BIPAP: No Cardiac: Yes High Cholesterol, Hypertension Neurological: Yes Cerebral Palsy, Neuropathy Reproductive Disorders: No Female Reproductive Disorders: Menstrual Problems Sexually Transmitted Disease: No HIV/AIDS: No Genitourinary: Yes (BLADDER SPASMS; INCONTINENCE) Kidney Stones Gastrointestinal: Yes (difficulty swallowing) Gastroesophageal Reflux Musculoskeletal: Yes (CEREBRAL PALSY; CHRONIC SHOULDER PAIN ) Arthritis Endocrine: Yes (OBESITY) Diabetes, Non-Insulin dep HEENT: No Loss of Vision: Denies Hearing Impairment: Denies Cancer: No Psychosocial: Yes Anxiety, Bipolar, Depression Integumentary: No Blood Disorders: No Adverse Reaction/Blood Tranf: No Family Medical History Completed stroke G8 SISTER, Onset:40's - 50 Lung cancer 19 FATHER, Onset:60 years & older Respiratory disorder 19 MOTHER, Onset:50's - 60 (copd) Heart Disease, Cancer, COPD, Stroke PAST SURGICAL HISTORY: -RIGHT SHOULDER REPLACEMENT -LEFT SHOULDER SURGERY AND REPLACEMENT -LEFT KNEE REPLACEMENT Physical Exam Vital Signs Vital Signs - First Documented 01/07/23 16:08 Temp 36.1 Pulse 73 Resp 16 B/P (MAP) 151/96 (114) Pulse Ox 97 O2 Delivery Room Air Capillary Refill : Less Than 3 Seconds Height, Weight, BMI Height: 5'0.00" Weight: 232lbs. 0oz. 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, 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 Norm as Tested, Other (no hallucinations; no SI/HI) Skin: Normal Color, Warm/Dry Procedures/Interventions Chest Tube : Chest Tube Position: Right Chest Tube Location: Mid-Axillary Chest Size of Thai Tube (cm): 20 Chest Tube Procedure: betadine prep, sterile drapes applied, sterile dressing applied Anesthesia: 1% Lidocaine Volume Anesthetic (ccs): 6 Christy of Air Avery: Yes Number of Attempts: 1 Time of Successful Intubation: 17:05 Tube Drainage: see nurses notes Tube Sutured to Skin: Yes Post Procedure CXR?: Yes Date of ETT Placement: Jan 07, 2023 Time of ETT Placement: 16:20 Intubation Method: orotracheal Tube Size: 7.5 Medications: Etomidate, Rocuronium Positive End Tide CO2: Yes Breath Sounds after Intubation: bilateral-equal Intubation Complications: no complications Post Intubation Xray: Yes Pneumothorax right side ET tube in position Progress/Results/Core Measures Suspected Sepsis SIRS Temperature: Pulse: 73 Respiratory Rate: 16 Laboratory Tests 01/07/23 16:40: White Blood Count 7.9 Blood Pressure 151 /96 Mean: 114 Laboratory Tests 01/07/23 16:40: Creatinine 0.81, Platelet Count 230 Results/Orders Lab Results Laboratory Tests Test 01/07/23 16:40 01/07/23 17:47 Range/Units White Blood Count 7.9 4.3-11.0 10^3/uL Red Blood Count 4.01 3.80-5.11 10^6/uL Hemoglobin 11.5 11.5-16.0 g/dL Hematocrit 35 35-52 % Mean Corpuscular Volume 87 80-99 fL Mean Corpuscular Hemoglobin 29 25-34 pg Mean Corpuscular Hemoglobin Concent 33 32-36 g/dL Red Cell Distribution Width 13.4 10.0-14.5 % Platelet Count 230 130-400 10^3/uL Mean Platelet Volume 10.2 9.0-12.2 fL Immature Granulocyte % (Auto) 1 % Neutrophils (%) (Auto) 64 42-75 % Lymphocytes (%) (Auto) 21 12-44 % Monocytes (%) (Auto) 11 0-12 % Eosinophils (%) (Auto) 4 0-10 % Basophils (%) (Auto) 1 0-10 % Neutrophils # (Auto) 5.1 1.8-7.8 10^3/uL Lymphocytes # (Auto) 1.6 1.0-4.0 10^3/uL Monocytes # (Auto) 0.8 0.0-1.0 10^3/uL Eosinophils # (Auto) 0.3 0.0-0.3 10^3/uL Basophils # (Auto) 0.1 0.0-0.1 10^3/uL Immature Granulocyte # (Auto) 0.1 0.0-0.1 10^3/uL Sodium Level 142 135-145 MMOL/L Potassium Level 3.4 L 3.6-5.0 MMOL/L Chloride Level 112 H 98-107 MMOL/L Carbon Dioxide Level 17 L 21-32 MMOL/L Anion Gap 13 5-14 MMOL/L Blood Urea Nitrogen 16 7-18 MG/DL Creatinine 0.81 0.60-1.30 MG/DL Estimat Glomerular Filtration Rate 79 BUN/Creatinine Ratio 20 Glucose Level 181 H 70-105 MG/DL Calcium Level 8.7 8.5-10.1 MG/DL My Orders Orders - NICK TORRE MD Cbc With Automated Diff (01/07/23 16:33) Basic Metabolic Panel (01/07/23 16:33) Ua Culture If Indicated (01/07/23 16:33) Vital Signs/I&O 01/07/23 16:08 Temp 36.1 Pulse 73 Resp 16 B/P (MAP) 151/96 (114) Pulse Ox 97 O2 Delivery Room Air Capillary Refill : Less Than 3 Seconds Blood Pressure Mean: 114 Departure Impression Primary Impression: Medication adverse effect Qualified Codes: T50.905A - Adverse effect of unspecified drugs, medicaments and biological substances, initial encounter Disposition: HOME, SELF-CARE Condition: Stable Departure-Patient Inst. Decision time for Depature: 18:03 [address]: [facility] [place] Primary Care Physician Patient Instructions: Adverse Drug Reactions, Adult ED Add. Discharge Instructions: You may stop the Zyprexa today. Take cogentin (benztropine) 1mg twice a day for 5 days. This may help the symptoms you have experienced of jittery feelings and restlessness. Contact your psychiatrist Monday to let them know you have stopped the Olanzapi ne. Scripts Benztropine Mesylate (Benztropine Mesylate) 1 Mg Tablet 1 MG PO BID for 5 Days, #10 TAB Prov: NICK TORRE MD 01/07/23 Copy Copies To 1: PORTER MORFIN KATHRYN M MD Jan 07, 2023 16:34
[2023-01-07 16:48] LABS: BASOPHILS # (AUTO) 0.1 10^3/uL (0.0-0.1); BASOPHILS % (AUTO) 1 % (0-10); EOSINOPHILS # (AUTO) 0.3 10^3/uL (0.0-0.3); EOSINOPHILS % (AUTO) 4 % (0-10); HEMATOCRIT 35 % (35-52); HEMOGLOBIN 11.5 g/dL (11.5-16.0); LYMPHOCYTES # (AUTO) 1.6 10^3/uL (1.0-4.0); LYMPHOCYTES % (AUTO) 21 % (12-44); MEAN CORPUSCULAR HEMOGLOBIN 29 pg (25-34); MEAN CORPUSCULAR HGB CONC 33 g/dL (32-36); MEAN CORPUSCULAR VOLUME 87 fL (80-99); MEAN PLATELET VOLUME 10.2 fL (9.0-12.2); MONOCYTES # (AUTO) 0.8 10^3/uL (0.0-1.0); MONOCYTES % (AUTO) 11 % (0-12); NEUTROPHILS # (AUTO) 5.1 10^3/uL (1.8-7.8); NEUTROPHILS % (AUTO) 64 % (42-75); PLATELET COUNT 230 10^3/uL (130-400); WHITE BLOOD COUNT 7.9 10^3/uL (4.3-11.0)
[2023-01-07 16:59] LABS: POTASSIUM 3.4 MMOL/L (3.6-5.0)
[2023-01-07 17:00] LABS: CALCIUM 8.7 MG/DL (8.5-10.1)
[2023-01-07 17:04] LABS: CREATININE SERUM 0.81 MG/DL (0.60-1.30)
[2023-01-07 17:52] LABS: BILIRUBIN,URINE NEGATIVE (NEGATIVE); CLARITY,URINE CLEAR; COLOR,URINE YELLOW; GLUCOSE, URINE (UA) NEGATIVE (NEGATIVE); KETONES,URINE NEGATIVE (NEGATIVE); LEUKOCYTE ESTERASE ,URINE NEGATIVE (NEGATIVE); NITRITE,URINE NEGATIVE (NEGATIVE); PH,URINE 6.5 (5-9); PROTEIN,URINE NEGATIVE (NEGATIVE)
[2023-01-07 18:01] LABS: BACTERIA,URINE TRACE /HPF; SQUAMOUS EPITHELIAL CELL,UR RARE /HPF; WBC,URINE 0-2 /HPF
[2023-01-07] MEDS ORDERED: BENZ1TAB74 PO (18:07)
[2023-01-07 18:22] VITALS: BP 138/88
== END 2023-01-07 18:22 | disposition home or self-care (01) ==
LOC: EDUNIT# 16:07 → ER 16:08
DX: G47.9 Sleep disorder, unspecified (principal); T43.595A Adverse effect of other antipsychotics and neuroleptics, initial encounter; F31.89 Other bipolar disorder; E66.9 Obesity, unspecified; Z79.899 Other long term (current) drug therapy; Z68.41 Body mass index [BMI] 40.0-44.9, adult
CPT/HCPCS: 36415; 80048; 81000; 85025; 99283

== ENCOUNTER → 2023-01-16 | Outpatient (CLI) | payer MEDICARE, OTHER ==
[~2023-01-16] MED LIST changes: +BENZ1TAB74 PO
--- NOTE | 2023-01-16 16:35 | Diagnostic Imaging Report ---
Indication: Routine screening. Comparison is made with prior mammograms from 01/01/2021 and 01/01/2018. 2-D and 3-D bilateral screening mammography was performed with CAD. Scattered fibroglandular densities are identified bilaterally. Scattered benign-appearing calcifications are noted bilaterally. Overall parenchymal pattern appears stable. No mass or malignant-appearing microcalcifications are seen. Axillae are unremarkable. IMPRESSION: BI-RADS Category 2. No mammographic features suspicious for malignancy are identified. ACR BI-RADS Category 2: Benign findings. Result letter will be mailed to the patient. Note: At least 10% of breast cancer is not imaged by mammography. Dictated by: Dictated on workstation # [id number]
== END ==
LOC: RAD 13:04
PROVIDERS: ATTEND Nurse Practitioner Family
DX: Z12.31 Encounter for screening mammogram for malignant neoplasm of breast (principal)
CPT/HCPCS: 77063; 77067

== ENCOUNTER → 2023-01-17 | Outpatient (CLI) | payer MEDICARE, OTHER ==
--- NOTE | 2023-01-17 09:31 | Diagnostic Imaging Report ---
MRI BRAIN W/O CONTRAST Date: 01/17/2023 8:57 AM Indication: MEMORY LOSS NEUROLOGIC DEFLICIT Comparison: None. Technique: Multiplanar multisequence MRI of the brain was performed without intravenous contrast using the standard protocol. Findings: No acute infarct. No acute or chronic hemorrhage. The ventricles are normal in size and configuration without hydrocephalus. Mild to moderate scattered FLAIR hyperintensities in the subcortical and periventricular deep white matter, a nonspecific finding, most commonly seen with chronic small vessel ischemic disease. The scalp and calvarium are normal. The pituitary and sella are normal. No Chiari malformation. The visualized upper cervical spine is normal. The visualized orbits and globes are normal. The visualized paranasal sinuses are clear. The mastoid air cells are clear. Normal flow voids within the vertebral, basilar, and internal carotid arteries indicating patency. IMPRESSION: No acute infarct, hemorrhage, mass, or hydrocephalus. Mild to moderate chronic small vessel ischemic disease. Dictated by: Dictated on workstation # [id number]
== END ==
LOC: RAD 07:35
PROVIDERS: ATTEND Internal Medicine Addiction Medicine
DX: I67.82 Cerebral ischemia (principal); R41.3 Other amnesia
CPT/HCPCS: 70551

== ENCOUNTER 2023-02-03 11:25 | Emergency (ER) | payer MEDICARE, OTHER ==
[~2023-02-03] VITALS: Ht 154 cm; Wt 102.0 kg
[2023-02-03 11:55] LABS: BASOPHILS % (AUTO) 1 % (0-10); EOSINOPHILS # (AUTO) 0.2 10^3/uL (0.0-0.3); EOSINOPHILS % (AUTO) 2 % (0-10); HEMATOCRIT 39 % (35-52); HEMOGLOBIN 12.7 g/dL (11.5-16.0); LYMPHOCYTES # (AUTO) 1.3 10^3/uL (1.0-4.0); LYMPHOCYTES % (AUTO) 16 % (12-44); MEAN CORPUSCULAR HEMOGLOBIN 29 pg (25-34); MEAN CORPUSCULAR HGB CONC 33 g/dL (32-36); MEAN CORPUSCULAR VOLUME 87 fL (80-99); MEAN PLATELET VOLUME 9.6 fL (9.0-12.2); MONOCYTES # (AUTO) 1.2 10^3/uL (0.0-1.0); MONOCYTES % (AUTO) 14 % (0-12); NEUTROPHILS # (AUTO) 5.6 10^3/uL (1.8-7.8); NEUTROPHILS % (AUTO) 67 % (42-75); PLATELET COUNT 237 10^3/uL (130-400); WHITE BLOOD COUNT 8.5 10^3/uL (4.3-11.0)
[2023-02-03 12:04] LABS: POTASSIUM 3.7 MMOL/L (3.6-5.0)
[2023-02-03 12:05] LABS: CALCIUM 9.1 MG/DL (8.5-10.1)
[2023-02-03 12:09] LABS: CREATININE SERUM 0.88 MG/DL (0.60-1.30)
[2023-02-03 12:29] LABS: BAND NEUTROPHILS 0 %; BASOPHILS % (MANUAL) 2 %; EOSINOPHILS % (MANUAL) 5 %; LYMPHOCYTES % (MANUAL) 11 %; MONOCYTES % (MANUAL) 9 %; NEUTROPHILS % (MANUAL) 73 %; RBC MORPH NORMAL
[2023-02-03] MEDS ORDERED: HYDR50TA76 PO (12:32)
--- NOTE | 2023-02-03 12:33 | ED General ---
General Chief Complaint: General Problems/Pain Stated Complaint: ANXIETY Nursing Triage Note: PT ARRIVED PER EMS, PT CO OF SHAKINESS, SLOW SPEECH, STUTTERING, ANXIETY. STARTED 3 WEEKS AGO WHEN RAN OUT OF MEDS FOR 2 WEEKS, HAS CURRENTLY BEEN TAKING AGAIN FOR PAST WEEK Source of Information: Patient, EMS Exam Limitations: No Limitations History of Present Illness Date Seen by Provider: February 03, 2023 Time Seen by Provider: 11:31 Initial Comments 67-year-old female presents emergency department today via EMS for shakiness, stuttering. About 3 weeks ago she ran out of all of her psychiatric meds. She has been on them for the last week. These medications do include lithium for bipolar disorder. She also has a history of significant anxiety. She denies any chest pain or shortness of breath. No abdominal pain. No change in bowel or bladder habits. States she is having trouble walking due to the tremors in her legs. All other systems reviewed and negative except documented per HPI. Voice recognition software was used to help create this chart Allergies and Home Medications Allergies Coded Allergies: lisinopril (Unverified Allergy, Unknown, 01/16/18) niacin (Verified Allergy, Unknown, hives/rash, 09/16/14) Patient Home Medication List Home Medication List Reviewed: Yes Amlodipine Besylate (Amlodipine Besylate) 10 Mg Tablet, 10 MG PO DAILY, (Reported) Entered as Reported by: QUYEN LUCAS on 05/03/18 1233 Atorvastatin Calcium (Atorvastatin Calcium) 10 Mg Tablet, 10 MG PO HS, (Reported) Entered as Reported by: QUYEN LUCAS on 05/03/18 1233 Benztropine Mesylate (Benztropine Mesylate) 1 Mg Tablet, 1 MG PO BID Prescribed by: NICK TORRE on 01/07/23 1807 Diclofenac Sodium (Voltaren Arthritis Pain) 1 % Gel..gram., 20 GM TP TID Prescribed by: JARVIS PERRY on 05/02/22 0515 Glipizide (Glipizide) 10 Mg Tablet, 10 MG PO DAILY, (Reported) Entered as Reported by: ALIS HURD on 04/11/17 1106 Ketorolac Tromethamine (Ketorolac Tromethamine) 10 Mg Tablet, 10 MG PO Q6H Prescribed by: JARVIS PERRY on 05/02/22 0515 Lidocaine (Lidocaine 5% Patch) 5 % Adh..patch, 1 EACH TP Q12H PRN for Neuropathic pain Prescribed by: TISHA REAGAN on 04/02/22 0233 Dargan Carbonate (Dargan Carbonate) 300 Mg Capsule, 300 MG PO DAILY, (Reported) Entered as Reported by: QUYEN LUCAS on 05/03/18 1233 Dargan Carbonate (Dargan Carbonate) 300 Mg Capsule, 900 MG PO HS, (Reported) Entered as Reported by: QUYEN LUCAS on 05/03/18 1233 Naproxen (Naproxen) 250 Mg Tablet, 250 MG PO Q12H Prescribed by: TISHA REAGAN on 04/02/22 0234 Pantoprazole Sodium (Protonix) 40 Mg Tablet.dr, 40 MG PO DAILY Prescribed by: CRISTINE RAYMOND on 05/08/18 1400 Quetiapine Fumarate (Quetiapine Fumarate) 100 Mg Tablet, 100 MG PO, (Reported) Entered as Reported by: ABDI GRIGGS on 03/28/20 0808 Solifenacin Succinate (Vesicare) 5 Mg Tablet, 5 MG PO DAILY, (Reported) Entered as Reported by: ALIS HURD on 05/08/18 1307 Tramadol HCl (Tramadol HCl) 50 Mg Tablet, 50 MG PO Q6H PRN for PAIN Prescribed by: ROCK SEYMOUR on 03/25/222042 Venlafaxine HCl (Venlafaxine HCl) 75 Mg Tab, 225 MG PO DAILY, (Reported) Entered as Reported by: QUYEN LUCAS on 05/03/18 1233 Review of Systems Review of Systems Constitutional: see HPI Past Rsuyfym-Rddsdi-Irizkp Hx Patient Social History Tobacco Use?: No Substance use?: No Alcohol Use?: No Pt feels they are or have been: No Immunizations Up To Date Tetanus Booster (TDap): Unknown PED Vaccines UTD: No Influenza Vaccine Up-to-Date: Yes; Up-to-Date First/Initial COVID19 Vaccinat: YES Second COVID19 Vaccination Nito: YES Third COVID19 Vaccination Date: YES Seasonal Allergies Seasonal Allergies: No Past Medical History Surgery/Hospitalization HX: L KNEE, T/A, HTN, HYPERLIPIDEMIA, NIDDM, GERD, CEREBRAL PALSY,ANX/DEPRESSION Surgeries: Yes Joint Replacement, Orthopedic, Tonsillectomy Respiratory: No Currently Using CPAP: No Currently Using BIPAP: No Cardiac: Yes High Cholesterol, Hypertension Neurological: Yes Cerebral Palsy, Neuropathy Reproductive Disorders: No Female Reproductive Disorders: Menstrual Problems Sexually Transmitted Disease: No HIV/AIDS: No Genitourinary: Yes (BLADDER SPASMS; INCONTINENCE) Kidney Stones Gastrointestinal: Yes (difficulty swallowing) Gastroesophageal Reflux Musculoskeletal: Yes (CEREBRAL PALSY; CHRONIC SHOULDER PAIN ) Arthritis Endocrine: Yes (OBESITY) Diabetes, Non-Insulin dep HEENT: No Loss of Vision: Denies Hearing Impairment: Denies Cancer: No Psychosocial: Yes Anxiety, Bipolar, Depression Integumentary: No Blood Disorders: No Adverse Reaction/Blood Tranf: No Family Medical History Completed stroke G8 SISTER, Onset:40's - 50 Lung cancer 19 FATHER, Onset:60 years & older Respiratory disorder 19 MOTHER, Onset:50's - 60 (copd) Heart Disease, Cancer, COPD, Stroke PAST SURGICAL HISTORY: -RIGHT SHOULDER REPLACEMENT -LEFT SHOULDER SURGERY AND REPLACEMENT -LEFT KNEE REPLACEMENT Physical Exam Vital Signs Vital Signs - First Documented 02/03/23 11:25 Temp 36.7 Pulse 69 Resp 16 B/P (MAP) 138/64 (88) Pulse Ox 98 Capillary Refill : Less Than 3 Seconds Height, Weight, BMI Height: 5'0.00" Weight: 232lbs. 0oz. 105.491084ec; 43.00 BMI Method:Stated General Appearance: No Apparent Distress, WD/WN HEENT: PERRL/EOMI, Normal ENT Inspection, Pharynx Normal Neck: Full Range of Motion, Normal Inspection, Non Tender, Supple Respiratory: Chest Non Tender, Lungs Clear, Normal Breath Sounds, No Accessory Muscle Use, No Respiratory Distress Cardiovascular: Regular Rate, Rhythm, No Murmur, Normal Peripheral Pulses Gastrointestinal: Normal Bowel Sounds, No Organomegaly, Non Tender, Soft Extremity: Normal Capillary Refill, Normal Inspection, Non Tender, No Calf Tenderness Neurologic/Psychiatric: Alert, Oriented x3, No Motor/Sensory Deficits, Normal 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0 g/dL Hematocrit 39 35-52 % Mean Corpuscular Volume 87 80-99 fL Mean Corpuscular Hemoglobin 29 25-34 pg Mean Corpuscular Hemoglobin Concent 33 32-36 g/dL Red Cell Distribution Width 14.2 10.0-14.5 % Platelet Count 237 130-400 10^3/uL Mean Platelet Volume 9.6 9.0-12.2 fL Immature Granulocyte % (Auto) 1 % Neutrophils (%) (Auto) 67 42-75 % Lymphocytes (%) (Auto) 16 12-44 % Monocytes (%) (Auto) 14 H 0-12 % Eosinophils (%) (Auto) 2 0-10 % Basophils (%) (Auto) 1 0-10 % Neutrophils # (Auto) 5.6 1.8-7.8 10^3/uL Lymphocytes # (Auto) 1.3 1.0-4.0 10^3/uL Monocytes # (Auto) 1.2 H 0.0-1.0 10^3/uL Eosinophils # (Auto) 0.2 0.0-0.3 10^3/uL Basophils # (Auto) 0.0 0.0-0.1 10^3/uL Immature Granulocyte # (Auto) 0.1 0.0-0.1 10^3/uL Sodium Level 139 135-145 MMOL/L Potassium Level 3.7 3.6-5.0 MMOL/L Chloride Level 107 98-107 MMOL/L Carbon Dioxide Level 20 L 21-32 MMOL/L Anion Gap 12 5-14 MMOL/L Blood Urea Nitrogen 13 7-18 MG/DL Creatinine 0.88 0.60-1.30 MG/DL Estimat Glomerular Filtration Rate 72 BUN/Creatinine Ratio 15 Glucose Level 214 H 70-105 MG/DL Calcium Level 9.1 8.5-10.1 MG/DL My Orders Orders - DIANA STREET DO Dargan Level (02/03/23 11:38) Cbc And Manual Diff (02/03/23 11:38) Basic Metabolic Panel (02/03/23 11:38) Vital Signs/I&O 02/03/23 11:25 Temp 36.7 Pulse 69 Resp 16 B/P (MAP) 138/64 (88) Pulse Ox 98 Capillary Refill : Less Than 3 Seconds Blood Pressure Mean: 88 Departure Communication (Admissions) Patient is hemodynamically stable with no evidence for focal neurologic deficit. Indication for CT scanning at this time. She has diffuse tremor with some mayi ttering type speech. Speech is normal otherwise with clear thought pattern. Symptoms most consistent with anxiety. Vital signs, exam reassuring. Dargan level pending as this is a send out however renal function is normal. She be discharged in stable condition with as needed hydroxyzine for Impression Primary Impression: Tremor Disposition: HOME, SELF-CARE Condition: Stable Departure-Patient Inst. Referrals: [facility] (PCP/Family) Primary Care Physician Patient Instructions: Tremor, Fibromyalgia (DC) Add. Discharge Instructions: Continue all psychiatric medicines as previously prescribed. Use the hydroxyzine as needed for anxiety. Return to the emergency department for any severe concerns. Follow-up with your primary doctor for any nonemergent needs All discharge instructions reviewed with patient and/or family. Voiced understanding. Scripts Hydroxyzine HCl (Hydroxyzine HCl) 50 Mg Tablet 50 MG PO TID for Anxiety for 5 Days, #[address]: [address] DO 02/03/[address] DO February 03, 2023 12:33
[2023-02-03 12:47] VITALS: BP 125/81
== END 2023-02-03 12:48 | disposition home or self-care (01) ==
LOC: EDUNIT# 11:33 → ER 11:35
DX: R25.1 Tremor, unspecified (principal); E66.9 Obesity, unspecified; Z68.41 Body mass index [BMI] 40.0-44.9, adult
CPT/HCPCS: 36415; 80048; 80178; 85007; 85027

== ENCOUNTER 2023-02-21 14:29 | Emergency (ER) | payer MEDICARE, OTHER ==
[~2023-02-21] VITALS: Ht 154 cm; Wt 104.0 kg
[~2023-02-21 14:29] MED LIST changes: +HYDR50TA76 PO
--- NOTE | 2023-02-21 14:39 | ED Fall/Injury ---
General Stated Complaint: FALL Source: patient Exam Limitations: no limitations History of Present Illness Date Seen by Provider: February 21, 2023 Time Seen by Provider: 14:36 Initial Comments Patient is a 67-year-old female who presents to the ED with left rib pain. Patient fell 1 hour ago. She landed on her left rib on the carpet. She states she was getting up from her seat at the kitchen table when she tripped and fell landing on her left side of her body. Patiently complaint is left rib pain. She states she did brace with her left arm as well but denies of any arm pain. She denies hitting her head or loss of conscious. History of falls. Only complaint left rib pain with any type of movement. Denies shortness of breath, cough, abdominal pain, vomit, diarrhea, neck pain, middle lower back pain. She was able to ambulate. Patient Was brought to ED by EMS. She lives at home by herself. She denies blood thinner use. She states she did have some mild left wrist pain but that pain improved. Allergies and Home Medications Allergies Coded Allergies: lisinopril (Unverified Allergy, Unknown, 01/16/18) niacin (Verified Allergy, Unknown, hives/rash, 09/16/14) Patient Home Medication List Home Medication List Reviewed: Yes Amlodipine Besylate (Amlodipine Besylate) 10 Mg Tablet, 10 MG PO DAILY, (Reported) Entered as Reported by: QUYEN LUCAS on 05/03/18 1233 Atorvastatin Calcium (Atorvastatin Calcium) 10 Mg Tablet, 10 MG PO HS, (Reported) Entered as Reported by: QUYEN LUCAS on 05/03/18 1233 Benztropine Mesylate (Benztropine Mesylate) 1 Mg Tablet, 1 MG PO BID Prescribed by: NICK TORRE on 01/07/23 1807 Diclofenac Sodium (Voltaren Arthritis Pain) 1 % Gel..gram., 20 GM TP TID Prescribed by: JARVIS PERRY on 05/02/22 0515 Glipizide (Glipizide) 10 Mg Tablet, 10 MG PO DAILY, (Reported) Entered as Reported by: ALIS HURD on 04/11/17 1106 Hydroxyzine HCl (Hydroxyzine HCl) 50 Mg Tablet, 50 MG PO TID Prescribed by: DIANA STREET MD on 02/03/23 1232 Ketorolac Tromethamine (Ketorolac Tromethamine) 10 Mg Tablet, 10 MG PO Q6H Prescribed by: JARVIS PERRY on 05/02/22 0515 Lidocaine (Lidocaine 5% Patch) 5 % Adh..patch, 1 EACH TP Q12H PRN for Neuropathic pain Prescribed by: TISHA REAGAN on 04/02/22 0233 [place] Carbonate ([place] Carbonate) 300 Mg Capsule, 300 MG PO DAILY, (Reported) Entered as Reported by: QUYEN LUCAS on 05/03/18 1233 [place] Carbonate ([place] Carbonate) 300 Mg Capsule, 900 MG PO HS, (Reported) Entered as Reported by: QUYEN LUCAS on 05/03/18 1233 Naproxen (Naproxen) 250 Mg Tablet, 250 MG PO Q12H Prescribed by: TISHA REAGAN on 04/02/22 0234 Pantoprazole Sodium (Protonix) 40 Mg Tablet.dr, 40 MG PO DAILY Prescribed by: CRISTINE RAYMOND on 05/08/18 1400 Quetiapine Fumarate (Quetiapine Fumarate) 100 Mg Tablet, 100 MG PO, (Reported) Entered as Reported by: ABDI GRIGGS on 03/28/20 0808 Solifenacin Succinate (Vesicare) 5 Mg Tablet, 5 MG PO DAILY, (Reported) Entered as Reported by: ALIS HURD on 05/08/18 1307 Tramadol HCl (Tramadol HCl) 50 Mg Tablet, 50 MG PO Q6H PRN for PAIN Prescribed by: ROCK SEYMOUR on 03/25/222042 Venlafaxine HCl (Venlafaxine HCl) 75 Mg Tab, 225 MG PO DAILY, (Reported) Entered as Reported by: QUYEN LUCAS on 05/03/18 1233 Review of Systems Review of Systems Constitutional: No chills, No diaphoresis, No malaise, No weakness Eyes: Denies Blurred Vision, Denies Decreased Acuity Ears, Nose, Mouth, Throat: denies ear pain, denies ear discharge Respiratory: No cough, No dyspnea on exertion; other (rib pain) Cardiovascular: No chest pain Gastrointestinal: No abdominal pain, No diarrhea, No nausea, No vomiting Genitourinary: No decreased output, No discharge Musculoskeletal: No back pain, No joint pain; joint swelling, muscle pain, muscle stiffness All Other Systems Reviewed Negative Unless Noted: Yes Past Jnvxelv-Mtavya-Mnvjsw Hx Immunizations Up To Date Tetanus Booster (TDap): Unknown PED Vaccines UTD: No First/Initial COVID19 Vaccinat: YES Second COVID19 Vaccination Nito: YES Third COVID19 Vaccination Date: YES Seasonal Allergies Seasonal Allergies: No Past Medical History Surgery/Hospitalization HX: L KNEE, T/A, HTN, HYPERLIPIDEMIA, NIDDM, GERD, CEREBRAL PALSY,ANX/DEPRESSION Surgeries: Yes Joint Replacement, Orthopedic, Tonsillectomy Respiratory: No Currently Using CPAP: No Currently Using BIPAP: No Cardiac: Yes High Cholesterol, Hypertension Neurological: Yes Cerebral Palsy, Neuropathy Reproductive Disorders: No Female Reproductive Disorders: Menstrual Problems Sexually Transmitted Disease: No HIV/AIDS: No Genitourinary: Yes (BLADDER SPASMS; INCONTINENCE) Kidney Stones Gastrointestinal: Yes (difficulty swallowing) Gastroesophageal Reflux Musculoskeletal: Yes (CEREBRAL PALSY; CHRONIC SHOULDER PAIN ) Arthritis Endocrine: Yes (OBESITY) Diabetes, Non-Insulin dep HEENT: No Loss of Vision: Denies Hearing Impairment: Denies Cancer: No Psychosocial: Yes Anxiety, Bipolar, Depression Integumentary: No Blood Disorders: No Adverse Reaction/Blood Tranf: No Family Medical History Completed stroke G8 SISTER, Onset:40's - 50 Lung cancer 19 FATHER, Onset:60 years & older Respiratory disorder 19 MOTHER, Onset:50's - 60 (copd) Heart Disease, Cancer, COPD, Stroke PAST SURGICAL HISTORY: -RIGHT SHOULDER REPLACEMENT -LEFT SHOULDER SURGERY AND REPLACEMENT -LEFT KNEE REPLACEMENT Physical Exam Vital Signs Vital Signs - First Documented 02/21/23 14:29 Temp 36.2 Pulse 66 Resp 16 B/P (MAP) 144/81 (102) Pulse Ox 96 O2 Delivery Room Air Capillary Refill : Height, Weight, BMI Height: 5'0.00" Weight: 232lbs. 0oz. [id number]; 43.00 BMI Method:Stated General Appearance: WD/WN, no apparent distress HEENT: PERRL/EOMI, normal ENT inspection, TMs normal, pharynx normal Neck: non-tender, full range of motion, supple, normal inspection Cardiovascular: regular rate, rhythm, no edema, no gallop, no JVD Respiratory: lungs clear, normal breath sounds, no respiratory distress, other (Left lateral rib tenderness) Gastrointestinal: normal bowel sounds, non tender, soft, no organomegaly, no pulsatile mass Pelvic: normal external exam Extremities: normal range of motion, no pedal edema Skin: normal color, warm/dry, other (No bruising, swelling.) Irene Coma Score Best Eye Response: (4) Open Spontaneously Best Verbal Response: (5) Oriented Best Motor Response: (6) Obeys Commands Irene Total: 15 Procedures/Interventions Date of ETT Placement: Jan 07, 2023 Time of ETT Placement: 1620 Progress/Results/Core Measures Results/Orders My Orders Orders - TISHA HERNANDEZ Chest Pa/Lat (2 View) (02/21/23 14:35) Vital Signs/I&O 02/21/23 02/21/23 14:29 15:34 Temp 36.2 Pulse 66 78 Resp 16 16 B/P (MAP) 144/81 (102) 141/84 Pulse Ox 96 98 O2 Delivery Room Air Room Air Departure Communication (PCP) Patient with a mechanical fall. History of falls. She states she lost her balance today and fell hitting the left side of her ribs and arm. Denies having chest pain or head pain before the fall. History of falls in the past. Similar type fall. she is scheduled to follow up with neurologist on March 08. she denies of any arm pain at this time or hitting her head. No loss of conscious or on blood thinners. GCS 15. Alert and orient x3 . she is complaining of left-sided rib pain worse with deep inspiration or movement but denies feeling short of breath. No abdominal tenderness. No evidence of contusion on exam. She has no cervical, thoracic or lumbar midline tenderness. No neurological red flag findings. Chest x-ray was ordered which did not note any obvious fracture, pneumothorax, pneumonia. If warranted further imaging such as CT scan. She does not appear in acute distress. If a potential fracture could take 3 to 4 weeks to heal. Will discharge with a spirometer to prevent pneumonia. She has pain medication at home. Refusing thing for pain on arrival. She states she did hit her left arm when she fell but she has no pain on palpation or tenderness warrant x-ray. Patient does not appear in acute distress. Return precaution were discussed. Impression Primary Impression: Rib pain Disposition: HOME, SELF-CARE Condition: Stable Departure-Patient Inst. Decision time for Depature: 15:09 Referrals: [facility] (PCP/Family) Primary Care Physician Patient Instructions: RIB CONTUSION Add. Discharge Instructions: Recommend using her spirometer to prevent pneumonia. Anti-inflammatory for pain. Return back to ED if symptoms worsen TISHA HERNANDEZ February 21, 2023 14:39
--- NOTE | 2023-02-21 15:04 | Diagnostic Imaging Report ---
CHEST PA/LAT (2 VIEW) Indication: Left rib pain Comparison: CT chest from 09/16/2014 Findings: No pulmonary mass or consolidation. No pleural effusion or pneumothorax. Heart is mildly enlarged. Mediastinal contours are normal. Bilateral shoulder arthroplasties have been performed. Impression: No acute cardiopulmonary process. Dictated by: Dictated on workstation # [id number]
[2023-02-21 15:34] VITALS: BP 141/84
== END 2023-02-21 15:34 | disposition home or self-care (01) ==
LOC: EDUNIT# 14:29 → ER 14:30
DX: R07.81 Pleurodynia (principal); E66.9 Obesity, unspecified; Z68.41 Body mass index [BMI] 40.0-44.9, adult; W01.198A Fall on same level from slipping, tripping and stumbling with subsequent striking against other object, initial encounter; Y92.000 Kitchen of unspecified non-institutional (private) residence as the place of occurrence of the external cause
CPT/HCPCS: 71046; 94664

== ENCOUNTER 2023-05-21 14:10 | Emergency (ER) | payer MEDICARE, OTHER ==
[2023-05-21] MEDS ORDERED: hydrOXYzine 25 MG CAPSULE PO STA (14:21)
--- NOTE | 2023-05-21 14:25 | ED General ---
General Chief Complaint: General Problems/Pain Stated Complaint: TREMORS Nursing Triage Note: PT ARRIVED PER EMS. PT HAS CEREBRAL PALSY AND STATES HAS INCREASED TREMORS TODAY. PT STATES HAS BEEN TIRED TODAY Source of Information: Patient, EMS Exam Limitations: No Limitations History of Present Illness Date Seen by Provider: May 21, 2023 Time Seen by Provider: 14:15 Initial Comments 67-year-old female with history of cerebral palsy, bipolar disorder on lithium presents to the emergency department today for increased tremor. She states the tremors are causing her difficulty walking. She uses a cane when "I am doing good." She notably was seen for this in January with a very similar presentation. Work-up was ultimately unremarkable at that time. She tells me she has these episodes that start mildly and usually resolve on their own but sometimes progressed to become worse over the course of several days. Her current episode has been worsening over the last 2 days. She had similar episodes about every 3 to 6 months and has had them for years. She denies any fevers chills chest pain shortness of breath abdominal pain or changes in bowel or bladder habits. She has been increasingly tired today. She has had no recent changes in her lithium dosage. She previously had been on 100 mg of gabapentin twice a day, neurology increased this to 300 mg 3 times a day about 1 month ago. All other systems reviewed and negative except documented per HPI. Voice recognition software was used to help create this chart Allergies and Home Medications Allergies Coded Allergies: lisinopril (Unverified Allergy, Unknown, 01/16/18) niacin (Verified Allergy, Unknown, hives/rash, 09/16/14) Patient Home Medication List Home Medication List Reviewed: Yes Amlodipine Besylate (Amlodipine Besylate) 10 Mg Tablet, 10 MG PO DAILY, (Reported) Entered as Reported by: QUYEN LUCAS on 05/03/18 1233 Atorvastatin Calcium (Atorvastatin Calcium) 10 Mg Tablet, 10 MG PO HS, (Reported) Entered as Reported by: QUYEN LUCAS on 05/03/18 1233 Benztropine Mesylate (Benztropine Mesylate) 1 Mg Tablet, 1 MG PO BID Prescribed by: NICK TORRE on 01/07/23 1807 Diclofenac Sodium (Voltaren Arthritis Pain) 1 % Gel..gram., 20 GM TP TID Prescribed by: JARVIS PERRY on 05/02/22 0515 Glipizide (Glipizide) 10 Mg Tablet, 10 MG PO DAILY, (Reported) Entered as Reported by: ALIS HURD on 04/11/17 1106 Hydroxyzine HCl (Hydroxyzine HCl) 50 Mg Tablet, 50 MG PO TID Prescribed by: DIANA STREET MD on 02/03/23 1232 Ketorolac Tromethamine (Ketorolac Tromethamine) 10 Mg Tablet, 10 MG PO Q6H Prescribed by: JARVIS PERRY on 05/02/22 0515 Lidocaine (Lidocaine 5% Patch) 5 % Adh..patch, 1 EACH TP Q12H PRN for Neuropathic pain Prescribed by: TISHA REAGAN on 04/02/22 0233 [place] Carbonate ([place] Carbonate) 300 Mg Capsule, 300 MG PO DAILY, (Reported) Entered as Reported by: QUYEN LUCAS on 05/03/18 1233 [place] Carbonate ([place] Carbonate) 300 Mg Capsule, 900 MG PO HS, (Reported) Entered as Reported by: QUYEN LUCAS on 05/03/18 1233 Naproxen (Naproxen) 250 Mg Tablet, 250 MG PO Q12H Prescribed by: TISHA REAGAN on 04/02/22 0234 Pantoprazole Sodium (Protonix) 40 Mg Tablet.dr, 40 MG PO DAILY Prescribed by: CRISTINE RAYMOND on 05/08/18 1400 Quetiapine Fumarate (Quetiapine Fumarate) 100 Mg Tablet, 100 MG PO, (Reported) Entered as Reported by: ABDI GRIGGS on 03/28/20 0808 Solifenacin Succinate (Vesicare) 5 Mg Tablet, 5 MG PO DAILY, (Reported) Entered as Reported by: ALIS HURD on 05/08/18 1307 Tramadol HCl (Tramadol HCl) 50 Mg Tablet, 50 MG PO Q6H PRN for PAIN Prescribed by: ROCK SEYMOUR on 03/25/222042 Venlafaxine HCl (Venlafaxine HCl) 75 Mg Tab, 225 MG PO DAILY, (Reported) Entered as Reported by: QUYEN LUCAS on 05/03/18 1233 Review of Systems Review of Systems Constitutional: see HPI Past Kxfaevc-Vgkqrk-Dpwtcy Hx Patient Social History Tobacco Use?: No Substance use?: No Alcohol Use?: No Pt feels they are or have been: No Immunizations Up To Date Tetanus Booster (TDap): Unknown PED Vaccines UTD: No First/Initial COVID19 Vaccinat: YES Second COVID19 Vaccination Nito: YES Third COVID19 Vaccination Date: YES Seasonal Allergies Seasonal Allergies: No Past Medical History Surgery/Hospitalization HX: L KNEE, T/A, HTN, HYPERLIPIDEMIA, NIDDM, GERD, CEREBRAL PALSY,ANX/DEPRESSION Surgeries: Yes Joint Replacement, Orthopedic, Tonsillectomy Respiratory: No Currently Using CPAP: No Currently Using BIPAP: No Cardiac: Yes High Cholesterol, Hypertension Neurological: Yes Cerebral Palsy, Neuropathy Reproductive Disorders: No Female Reproductive Disorders: Menstrual Problems Sexually Transmitted Disease: No HIV/AIDS: No Genitourinary: Yes (BLADDER SPASMS; INCONTINENCE) Kidney Stones Gastrointestinal: Yes (difficulty swallowing) Gastroesophageal Reflux Musculoskeletal: Yes (CEREBRAL PALSY; CHRONIC SHOULDER PAIN ) Arthritis Endocrine: Yes (OBESITY) Diabetes, Non-Insulin dep HEENT: No Loss of Vision: Denies Hearing Impairment: Denies Cancer: No Psychosocial: Yes Anxiety, Bipolar, Depression Integumentary: No Blood Disorders: No Adverse Reaction/Blood Tranf: No Family Medical History Completed stroke G8 SISTER, Onset:40's - 50 Lung cancer 19 FATHER, Onset:60 years & older Respiratory disorder 19 MOTHER, Onset:50's - 60 (copd) Heart Disease, Cancer, COPD, Stroke PAST SURGICAL HISTORY: -RIGHT SHOULDER REPLACEMENT -LEFT SHOULDER SURGERY AND REPLACEMENT -LEFT KNEE REPLACEMENT Physical Exam Vital Signs Vital Signs - First Documented 05/21/23 14:10 Temp 36.6 Pulse 75 Resp 19 B/P (MAP) 151/95 (113) Pulse Ox 97 Capillary Refill : Less Than 3 Seconds Height, Weight, BMI Height: 5'0.00" Weight: 232lbs. 0oz. 105.823520do; 43.00 BMI Method:Stated General Appearance: No Apparent Distress, WD/WN Eyes: Bilateral Eye Normal Inspection, Bilateral Eye PERRL, Bilateral Eye EOMI HEENT: PERRL/EOMI, Normal ENT Inspection, Pharynx Normal Neck: Full Range of Motion, Normal Inspection, Non Tender, Supple Respiratory: Chest Non Tender, Lungs Clear, Normal Breath Sounds, No Accessory Muscle Use, No Respiratory Distress Cardiovascular: Regular Rate, Rhythm, No Murmur, Normal Peripheral Pulses Gastrointestinal: Normal Bowel Sounds, No Organomegaly, Non Tender, Soft Extremity: Normal Capillary Refill, Normal Inspection, Normal Range of Motion, Non Tender, No Calf Tenderness, Other (Patient has a tremor of her upper and lower extremities that seems to get better with intention) Neurologic/Psychiatric: Alert, Oriented x3, No Motor/Sensory Deficits, Normal Mood/Affect, admission nurse coordinator II-XII Norm as Tested Skin: Normal Color, Warm/Dry Procedures/Interventions Date of ETT Placement: Jan 07, 2023 Time of ETT Placement: 1620 Progress/Results/Core Measures Suspected Sepsis SIRS Temperature: Pulse: 75 Respiratory Rate: 19 Laboratory Tests 05/21/23 14:41: White Blood Count 7.6 Blood Pressure 151 /95 Mean: 113 Laboratory Tests 05/21/23 14:41: Creatinine 0.90, Platelet Count 220, Total Bilirubin 0.4 Results/Orders Lab Results Laboratory Tests Test 05/21/23 14:41 Range/Units White Blood Count 7.6 4.3-11.0 10^3/uL Red Blood Count 4.66 3.80-5.11 10^6/uL Hemoglobin 13.5 11.5-16.0 g/dL Hematocrit 41 35-52 % Mean Corpuscular Volume 89 80-99 fL Mean Corpuscular Hemoglobin 29 25-34 pg Mean Corpuscular Hemoglobin Concent 33 32-36 g/dL Red Cell Distribution Width 13.9 10.0-14.5 % Platelet Count 220 130-400 10^3/uL Mean Platelet Volume 10.2 9.0-12.2 fL Immature Granulocyte % (Auto) 1 % Neutrophils (%) (Auto) 62 42-75 % Lymphocytes (%) (Auto) 20 12-44 % Monocytes (%) (Auto) 12 0-12 % Eosinophils (%) (Auto) 5 0-10 % Basophils (%) (Auto) 1 0-10 % Neutrophils # (Auto) 4.7 1.8-7.8 10^3/uL Lymphocytes # (Auto) 1.5 1.0-4.0 10^3/uL Monocytes # (Auto) 0.9 0.0-1.0 10^3/uL Eosinophils # (Auto) 0.3 0.0-0.3 10^3/uL Basophils # (Auto) 0.0 0.0-0.1 10^3/uL Immature Granulocyte # (Auto) 0.1 0.0-0.1 10^3/uL Sodium Level 140 135-145 MMOL/L Potassium Level 3.9 3.6-5.0 MMOL/L Chloride Level 106 98-107 MMOL/L Carbon Dioxide Level 23 21-32 MMOL/L Anion Gap 11 5-14 MMOL/L Blood Urea Nitrogen 15 7-18 MG/DL Creatinine 0.90 0.60-1.30 MG/DL Estimat Glomerular Filtration Rate 70 BUN/Creatinine Ratio 17 Glucose Level 230 H 70-105 MG/DL Calcium Level 9.3 8.5-10.1 MG/DL Corrected Calcium 9.3 8.5-10.1 MG/DL Total Bilirubin 0.4 0.1-1.0 MG/DL Aspartate Amino Transf (AST/SGOT) 79 H 5-34 U/L Alanine Aminotransferase (ALT/SGPT) 124 H 0-55 U/L Alkaline Phosphatase 82 40-136 U/L Total Protein 7.0 6.4-8.2 GM/DL Albumin 4.0 3.2-4.5 GM/DL My Orders Orders - DIANA STREET DO Comprehensive Metabolic Panel (05/21/23 14:21) Cbc With Automated Diff (05/21/23 14:21) Hydroxyzine Oral (Hydroxyzine Oral) (05/21/23 14:21) [place] Level (05/21/23 14:22) Vital Signs/I&O 05/21/23 14:10 Temp 36.6 Pulse 75 Resp 19 B/P (MAP) 151/95 (113) Pulse Ox 97 Capillary Refill : Less Than 3 Seconds Blood Pressure Mean: 113 Departure Communication (Admissions) Patient is hemodynamically stable, neurovascular motor and sensory intact. Labs are obtained to rule out hypo-, hyperkalemia, hypohypercalcemia. These are negative for any acute abnormalities outside of chronic elevation slightly of her liver enzymes. She does have a mild tremor that seems to be better with intention. Labs vital signs and exam are reassuring. Discharged in stable condition. Impression Primary Impression: Tremor Disposition: 01 HOME, SELF-CARE Condition: Stable Departure-Patient Inst. Referrals: [facility] [place]) Primary Care Physician Add. Discharge Instructions: You are seen in the emergency department today for tremors. No emergent medical conditions are identified. Your labs and physical exam are otherwise reassuring as are your vital signs. Continue to take hydroxyzine as needed for anxiousness and tremor. Return to the emergency department for any severe concerns. Follow-up with her primary doctor for any nonemergent needs. All discharge instructions reviewed with patient and/or family. Voiced understanding. Scripts Hydroxyzine HCl (Hydroxyzine HCl) 50 Mg Tablet 50 MG PO TID for Anxiety for 5 Days, #[address]: [address] DO 05/21/[address] DO May 21, 2023 14:25
[2023-05-21 14:53] LABS: BASOPHILS % (AUTO) 1 % (0-10); EOSINOPHILS # (AUTO) 0.3 10^3/uL (0.0-0.3); EOSINOPHILS % (AUTO) 5 % (0-10); HEMATOCRIT 41 % (35-52); HEMOGLOBIN 13.5 g/dL (11.5-16.0); LYMPHOCYTES # (AUTO) 1.5 10^3/uL (1.0-4.0); LYMPHOCYTES % (AUTO) 20 % (12-44); MEAN CORPUSCULAR HEMOGLOBIN 29 pg (25-34); MEAN CORPUSCULAR HGB CONC 33 g/dL (32-36); MEAN CORPUSCULAR VOLUME 89 fL (80-99); MEAN PLATELET VOLUME 10.2 fL (9.0-12.2); MONOCYTES # (AUTO) 0.9 10^3/uL (0.0-1.0); MONOCYTES % (AUTO) 12 % (0-12); NEUTROPHILS # (AUTO) 4.7 10^3/uL (1.8-7.8); NEUTROPHILS % (AUTO) 62 % (42-75); PLATELET COUNT 220 10^3/uL (130-400); WHITE BLOOD COUNT 7.6 10^3/uL (4.3-11.0)
[2023-05-21 15:05] LABS: POTASSIUM 3.9 MMOL/L (3.6-5.0)
[2023-05-21 15:06] LABS: CALCIUM 9.3 MG/DL (8.5-10.1)
[2023-05-21 15:09] LABS: BILIRUBIN,TOTAL 0.4 MG/DL (0.1-1.0)
[2023-05-21 15:11] LABS: CREATININE SERUM 0.9 MG/DL (0.60-1.30)
[2023-05-21] MEDS ORDERED: HYDR50TA76 PO (15:40)
[2023-05-21 15:41] VITALS: BP 136/86
== END 2023-05-21 16:10 | disposition home or self-care (01) ==
LOC: EDUNIT# 14:10 → ER 14:11
DX: R25.1 Tremor, unspecified (principal); F31.9 Bipolar disorder, unspecified; E66.9 Obesity, unspecified; Z79.899 Other long term (current) drug therapy; Z68.41 Body mass index [BMI] 40.0-44.9, adult
CPT/HCPCS: 36415; 80053; 80178; 85025; 99283

== ENCOUNTER 2023-05-30 11:19 | Emergency (ER) | payer MEDICARE, OTHER ==
[~2023-05-30] VITALS: Ht 154.5 cm; Wt 125.2 kg
--- NOTE | 2023-05-30 12:02 | ED Neurological Problem ---
General Chief Complaint: General Problems/Pain Stated Complaint: TREMORS Nursing Triage Note: PT TO ED BY EMS WITH C/O TREMORS X 1 WK. EMS REPORTS PT ABLE TO AMBULATE TO COT INDEPENDENTLY ON SCENE. PT REPORTS HER SPEECH IS NOT NORMAL FOR HER AND HAS HAD INCREASED WEAKNESS AND LOSS OF COORDINATION OVER THE LAST WEEK. DENIES FEVER, N/V/D, URINARY SX, CP, OR ANY OTHER SX AT THIS TIME. PT A&OX4. PT REPORTS SHE HAS AN APPOINTMENT WITH [facility] ON 06/12. Source: patient, old records Exam Limitations: no limitations (ZULAY CRUZ) History of Present Illness Date Seen by Provider: May 30, 2023 Time Seen by Provider: 11:45 Initial Comments 67 yo F with PMH cerebral palsy, DM, diabetic neuropathy, urinary incontinence, and bipolar disorder presents to the ED via EMS with c/o tremors, weakness, and speech issues that started ~1 week ago. Pt was seen in this ED on 05/21 and earlier in January of this year for the same complaints, stating that her tremors have made it increasingly more difficult to walk. ED workup was unremarkable and pt was discharged with hydroxyzine for her tremors and anxiety. Pt states that symptoms improved initially with the medication but returned ~1 week ago. Pt states that weakness and tremors became so severe today that she was unable to walk, prompting her to come to the ED. Pt also notes that her speech has worsened, becoming more "garbled" and having issues with word finding this week. Pt states that she has a an appointment with a "gait and balance doctor" in [place] on 06/13. Pt receives regular brain MRIs, the most recent on 01/17/23 that was remarkable only for small vessel ischemic disease. notes that pt has issues sleeping, no change from baseline though. Denies any changes to medications recently. Denies fever, chills, nausea, vomiting, CP, cough, sens ation deficits, vision changes, h/o DVTs, recent falls or head strikes, and changes to urinary or bowel habits. Severity: moderate Associated Symptoms: No fever/chills, No loss of consciousness, No nausea/vomiting; slurred speech, trouble walking; No vision changes; weakness (ZULAY CRUZ) Allergies and Home Medications Allergies Coded Allergies: lisinopril (Unverified Allergy, Unknown, 01/16/18) niacin (Verified Allergy, Unknown, hives/rash, 09/16/14) Patient Home Medication List Home Medication List Reviewed: Yes (ZULAY CRUZ) Amlodipine Besylate (Amlodipine Besylate) 10 Mg Tablet, 10 MG PO DAILY, (Reported) Entered as Reported by: QUYEN LUCAS on 05/03/18 1233 Atorvastatin Calcium (Atorvastatin Calcium) 10 Mg Tablet, 10 MG PO HS, (Reported) Entered as Reported by: QUYEN LUCAS on 05/03/18 1233 Benztropine Mesylate (Benztropine Mesylate) 1 Mg Tablet, 1 MG PO BID Prescribed by: NICK TORER on 01/07/23 1807 Diclofenac Sodium (Voltaren Arthritis Pain) 1 % Gel..gram., 20 GM TP TID Prescribed by: JARVIS PERRY on 05/02/22 0515 Glipizide (Glipizide) 10 Mg Tablet, 10 MG PO DAILY, (Reported) Entered as Reported by: ALIS HURD on 04/11/17 1106 Hydroxyzine HCl (Hydroxyzine HCl) 50 Mg Tablet, 50 MG PO TID Prescribed by: DIANA STREET MD on 02/03/23 1232 Hydroxyzine HCl (Hydroxyzine HCl) 50 Mg Tablet, 50 MG PO TID Prescribed by: DIANA STREET MD on 05/21/23 1540 Ketorolac Tromethamine (Ketorolac Tromethamine) 10 Mg Tablet, 10 MG PO Q6H Prescribed by: JARVIS PERRY on 05/02/22 0515 Lidocaine (Lidocaine 5% Patch) 5 % Adh..patch, 1 EACH TP Q12H PRN for Neuropathic pain Prescribed by: TISHA REAGAN on 04/02/22 0233 [place] Carbonate ([place] Carbonate) 300 Mg Capsule, 300 MG PO DAILY, (Reported) Entered as Reported by: QUYEN LUCAS on 05/03/18 1233 [place] Carbonate ([place] Carbonate) 300 Mg Capsule, 900 MG PO HS, (Reported) Entered as Reported by: QUYEN LUCAS on 05/03/18 1233 Naproxen (Naproxen) 250 Mg Tablet, 250 MG PO Q12H Prescribed by: TISHA REAGAN on 04/02/22 0234 Pantoprazole Sodium (Protonix) 40 Mg Tablet.dr, 40 MG PO DAILY Prescribed by: CRISTINE RAYMOND on 05/08/18 1400 Quetiapine Fumarate (Quetiapine Fumarate) 100 Mg Tablet, 100 MG PO, (Reported) Entered as Reported by: ABDI GRIGGS on 03/28/20 0808 Solifenacin Succinate (Vesicare) 5 Mg Tablet, 5 MG PO DAILY, (Reported) Entered as Reported by: ALIS HURD on 05/08/18 1307 Tramadol HCl (Tramadol HCl) 50 Mg Tablet, 50 MG PO Q6H PRN for PAIN Prescribed by: ROCK SEYMOUR on 03/25/22 204 Venlafaxine HCl (Venlafaxine HCl) 75 Mg Tab, 225 MG PO DAILY, (Reported) Entered as Reported by: QUYEN LUCAS on 05/03/18 1233 Review of Systems Review of Systems Constitutional: No chills, No fever; weakness Eyes: No Symptoms Reported; Denies Blurred Vision, Denies Vision Changes Ears, Nose, Mouth, Throat: no symptoms reported Respiratory: no symptoms reported Cardiovascular: no symptoms reported Gastrointestinal: no symptoms reported Genitourinary: incontinence (chronic ) Musculoskeletal: No muscle pain; muscle twitching (extremities, primarily upper ) Skin: no symptoms reported Psychiatric/Neurological: Weakness, Other (tremors) Endocrine: No Symptoms Reported Hematologic/Lymphatic: No Symptoms Reported (ZULAY CRUZ) All Other Systems Reviewed Negative Unless Noted: Yes (ZULAY CRUZ) Past Pmwdtrl-Rnbuih-Cuevjj Hx Patient Social History Tobacco Use?: No Use of E-Cig and/or Vaping dev: No Substance use?: No Alcohol Use?: No Pt feels they are or have been: No (ZULAY CRUZ) Immunizations Up To Date Tetanus Booster (TDap): Unknown PED Vaccines UTD: No First/Initial COVID19 Vaccinat: YES Second COVID19 Vaccination Nito: YES Third COVID19 Vaccination Date: YES (ZULAY CRUZ) Seasonal Allergies Seasonal Allergies: No (ZULAY CRUZ) Past Medical History Surgery/Hospitalization HX: L KNEE, T/A, HTN, HYPERLIPIDEMIA, NIDDM, GERD, CEREBRAL PALSY,ANX/DEPRESSION Surgeries: Yes Joint Replacement, Orthopedic, Tonsillectomy Respiratory: No Currently Using CPAP: No Currently Using BIPAP: No Cardiac: Yes High Cholesterol, Hypertension Neurological: Yes Cerebral Palsy, Neuropathy Reproductive Disorders: No Female Reproductive Disorders: Menstrual Problems Sexually Transmitted Disease: No HIV/AIDS: No Genitourinary: Yes (BLADDER SPASMS; INCONTINENCE) Kidney Stones, Neurogenic Bladder Gastrointestinal: Yes (difficulty swallowing) Gastroesophageal Reflux Musculoskeletal: Yes (CEREBRAL PALSY; CHRONIC SHOULDER PAIN ) Arthritis Endocrine: Yes (OBESITY) Diabetes, Non-Insulin dep HEENT: No Loss of Vision: Denies Hearing Impairment: Denies Cancer: No Psychosocial: Yes Anxiety, Bipolar, Depression Integumentary: No Blood Disorders: No Adverse Reaction/Blood Tranf: No (ZULAY CRUZ) Family Medical History Completed stroke G8 SISTER, Onset:40's - 50 Lung cancer 19 FATHER, Onset:60 years & older Respiratory disorder 19 MOTHER, Onset:50's - 60 (copd) Heart Disease, Cancer, COPD, Stroke PAST SURGICAL HISTORY: -RIGHT SHOULDER REPLACEMENT -LEFT SHOULDER SURGERY AND REPLACEMENT -LEFT KNEE REPLACEMENT (ZULAY CRUZ) Physical Exam Vital Signs Vital Signs - First Documented 05/30/23 11:20 Temp 36.7 Pulse 72 Resp 16 B/P (MAP) 140/80 (100) Pulse Ox 97 O2 Delivery Room Air (NICK TORRE MD) Vital Signs Capillary Refill : Less Than 3 Seconds (ZULAY CRUZ) Height, Weight, BMI Height: 5'0.00" Weight: 232lbs. 0oz. 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 II-XII nml as tested, no motor/sensory deficits, alert, normal mood/affect, oriented x 3, other (dysarthria) Crainal Nerves: normal hearing, PERRL Coordination/Gait: normal finger to nose Motor/Sensory: no motor deficit, no sensory deficit Skin: normal color, warm/dry Lymphatic: no adenopathy (ZULAY CRUZ) Stroke NIH Stroke Scale Assessment Level of Consciousness: 0=Alert (0), Level of Consciousness-Questions: 0=Answers both month/age (0), LOC Commands: 0=Performs both tasks (0), Gaze: Normal (0), Visual Pierce: 0=No visual loss (0), Facial Movement (Facial Paresis): 0=Normal symmetrical mnt (0), Motor Function-Arms Right: 0=No drift (0), Motor Function-Arms Left: 0=No drift (0), Motor Function-Legs Right: 0=No drift (0), Motor Function-Legs Left: 0=No drift (0), Sensory: 0=Normal:no loss (0), Best Language: 0=No aphasia (0), Dysarthria: 1=Mild to moderate loss (1), Extinction & Inattention: 0=No abnormality (0), Total: 1 Procedures/Interventions Date of ETT Placement: Jan 07, 2023 Time of ETT Placement: 0 (ZULAY CRUZ) Progress/Results/Core Measures Results/Orders Lab Results Laboratory Tests Test 05/30/23 11:30 05/30/23 12:06 Range/Units White Blood Count 9.6 4.3-11.0 10^3/uL Red Blood Count 4.57 3.80-5.11 10^6/uL Hemoglobin 13.2 11.5-16.0 g/dL Hematocrit 41 35-52 % Mean Corpuscular Volume 89 80-99 fL Mean Corpuscular Hemoglobin 29 25-34 pg Mean Corpuscular Hemoglobin Concent 33 32-36 g/dL Red Cell Distribution Width 14.0 10.0-14.5 % Platelet Count 273 130-400 10^3/uL Mean Platelet Volume 10.4 9.0-12.2 fL Immature Granulocyte % (Auto) 1 % Neutrophils (%) (Auto) 65 42-75 % Lymphocytes (%) (Auto) 19 12-44 % Monocytes (%) (Auto) 10 0-12 % Eosinophils (%) (Auto) 5 0-10 % Basophils (%) (Auto) 1 0-10 % Neutrophils # (Auto) 6.3 1.8-7.8 10^3/uL Lymphocytes # (Auto) 1.8 1.0-4.0 10^3/uL Monocytes # (Auto) 0.9 0.0-1.0 10^3/uL Eosinophils # (Auto) 0.4 H 0.0-0.3 10^3/uL Basophils # (Auto) 0.1 0.0-0.1 10^3/uL Immature Granulocyte # (Auto) 0.1 0.0-0.1 10^3/uL Sodium Level 140 135-145 MMOL/L Potassium Level 4.1 3.6-5.0 MMOL/L Chloride Level 107 98-107 MMOL/L Carbon Dioxide Level 22 21-32 MMOL/L Anion Gap 11 5-14 MMOL/L Blood Urea Nitrogen 16 7-18 MG/DL Creatinine 0.93 0.60-1.30 MG/DL Estimat Glomerular Filtration Rate 67 BUN/Creatinine Ratio 17 Glucose Level 237 H 70-105 MG/DL Calcium Level 9.2 8.5-10.1 MG/DL Urine Color YELLOW Urine Clarity CLEAR Urine pH 6.5 5-9 Urine Specific [place] 1.010 L 1.016-1.022 Urine Protein NEGATIVE NEGATIVE Urine Glucose (UA) NEGATIVE NEGATIVE Urine Ketones NEGATIVE NEGATIVE Urine Nitrite NEGATIVE NEGATIVE Urine Bilirubin NEGATIVE NEGATIVE Urine Urobilinogen 0.2 < = 1.0 MG/DL Urine Leukocyte Esterase NEGATIVE NEGATIVE Urine RBC (Auto) NEGATIVE NEGATIVE Urine RBC NONE /HPF Urine WBC NONE /HPF Urine Squamous Epithelial Cells 0-2 /HPF Urine Crystals NONE /LPF Urine Bacteria TRACE /HPF Urine Casts NONE /LPF Urine Mucus NEGATIVE /LPF Urine Culture Indicated NO (NICK TORRE MD) My Orders Orders - NICK TORRE MD Cbc With Automated Diff (05/30/23 11:59) Basic Metabolic Panel (05/30/23 11:59) Ct Head Wo (05/30/23 11:59) Ua Culture If Indicated (05/30/23 12:05) (NICK TORRE MD) Vital Signs/I&O 05/30/23 11:20 Temp 36.7 Pulse 72 Resp 16 B/P (MAP) 140/80 (100) Pulse Ox 97 O2 Delivery Room Air (NICK TORRE MD) Blood Pressure Mean: 100 Progress Progress Note : Time: 13:19 (NICK TORRE MD) Diagnostic Imaging Diagonstic Imaging: CT Comments [facility], [place] NAME: SANDRA MORELOS [facility] REC#: [id number] PT STATUS: REG ER : 1955 PHYSICIAN: NICK TORRE MD ADMIT DATE: 05/30/23/ER Draft Date of Exam:05/30/23 CT HEAD WO EXAMINATION: CT head without contrast. TECHNIQUE: Multiple contiguous axial images were obtained through the brain without the use of intravenous contrast. All CT scans use one or more of the following dose optimizing techniques: automated exposure control, MA and/or KvP adjustment based on patient size and exam type or iterative reconstruction. HISTORY: Tremor. Balance and speech abnormalities. Weakness. COMPARISON: 09/01/2021. 01/17/2023. FINDINGS: No large acute territorial ischemia, mass, or hemorrhage. No midline shift or mass effect. The ventricles, cortical sulci, and basilar cisterns are patent and unremarkable. The orbits are normal. Paranasal sinuses are normal. Mastoid air cells are clear. No soft tissue abnormality is seen. No osseus lesions or fractures are seen. IMPRESSION: 1. No large acute territorial ischemia, mass, or hemorrhage. Dictated on workstation # [id number] Dict: 05/30/23 1255 Trans: 05/30/23 1256 CVB [id number] Interpreted by: DEEP MCDOWELL DO Electronically signed by: (NICK TORRE MD) Departure Impression Primary Impression: Dysarthria Additional Impression: Tremors of nervous system Disposition: 01 HOME, SELF-CARE Condition: Stable Departure-Patient Inst. Decision time for Depature: 13:20 (NICK TORRE MD) Referrals: HEATHER BOONE DO (PCP/Family) Primary Care Physician Patient Instructions: Dysarthria Add. Discharge Instructions: You have normal laboratory studies today as well as a normal CAT scan. I would recommend that you decrease your gabapentin to 2 pills or 200 mg twice daily. Do this for approximately a week and see if this improves your speech and tremors. Please follow-up with your neurologist/primary care provider as scheduled. Return to the emergency department for any new, concerning or emergent complaints. Copy Copies To 1: HEATHER BOONE TAYLOR May 30, 2023 12:02 NICK TORRE MD May 30, 2023 13:22
[2023-05-30 12:04] LABS: BASOPHILS # (AUTO) 0.1 10^3/uL (0.0-0.1); BASOPHILS % (AUTO) 1 % (0-10); EOSINOPHILS # (AUTO) 0.4 10^3/uL (0.0-0.3); EOSINOPHILS % (AUTO) 5 % (0-10); HEMATOCRIT 41 % (35-52); HEMOGLOBIN 13.2 g/dL (11.5-16.0); LYMPHOCYTES # (AUTO) 1.8 10^3/uL (1.0-4.0); LYMPHOCYTES % (AUTO) 19 % (12-44); MEAN CORPUSCULAR HEMOGLOBIN 29 pg (25-34); MEAN CORPUSCULAR HGB CONC 33 g/dL (32-36); MEAN CORPUSCULAR VOLUME 89 fL (80-99); MEAN PLATELET VOLUME 10.4 fL (9.0-12.2); MONOCYTES # (AUTO) 0.9 10^3/uL (0.0-1.0); MONOCYTES % (AUTO) 10 % (0-12); NEUTROPHILS # (AUTO) 6.3 10^3/uL (1.8-7.8); NEUTROPHILS % (AUTO) 65 % (42-75); PLATELET COUNT 273 10^3/uL (130-400); WHITE BLOOD COUNT 9.6 10^3/uL (4.3-11.0)
[2023-05-30 12:20] LABS: CALCIUM 9.2 MG/DL (8.5-10.1); CREATININE SERUM 0.93 MG/DL (0.60-1.30); POTASSIUM 4.1 MMOL/L (3.6-5.0)
[2023-05-30 12:26] LABS: BILIRUBIN,URINE NEGATIVE (NEGATIVE); CLARITY,URINE CLEAR; COLOR,URINE YELLOW; GLUCOSE, URINE (UA) NEGATIVE (NEGATIVE); KETONES,URINE NEGATIVE (NEGATIVE); LEUKOCYTE ESTERASE ,URINE NEGATIVE (NEGATIVE); NITRITE,URINE NEGATIVE (NEGATIVE); PH,URINE 6.5 (5-9); PROTEIN,URINE NEGATIVE (NEGATIVE)
[2023-05-30 12:27] LABS: BACTERIA,URINE TRACE /HPF; SQUAMOUS EPITHELIAL CELL,UR 0-2 /HPF
--- NOTE | 2023-05-30 12:57 | Diagnostic Imaging Report ---
EXAMINATION: CT head without contrast. TECHNIQUE: Multiple contiguous axial images were obtained through the brain without the use of intravenous contrast. All CT scans use one or more of the following dose optimizing techniques: automated exposure control, MA and/or KvP adjustment based on patient size and exam type or iterative reconstruction. HISTORY: Tremor. Balance and speech abnormalities. Weakness. COMPARISON: 09/01/2021. 01/17/2023. FINDINGS: No large acute territorial ischemia, mass, or hemorrhage. No midline shift or mass effect. The ventricles, cortical sulci, and basilar cisterns are patent and unremarkable. The orbits are normal. Paranasal sinuses are normal. Mastoid air cells are clear. No soft tissue abnormality is seen. No osseus lesions or fractures are seen. IMPRESSION: 1. No large acute territorial ischemia, mass, or hemorrhage. Dictated by: Dictated on workstation # [id number]
[2023-05-30 13:35] VITALS: BP 149/85
== END 2023-05-30 13:35 | disposition home or self-care (01) ==
LOC: EDUNIT# 11:19 → ER 11:19
DX: R47.1 Dysarthria and anarthria (principal); R25.1 Tremor, unspecified; E66.9 Obesity, unspecified; Z68.43 Body mass index [BMI] 50.0-59.9, adult
CPT/HCPCS: 36415; 70450; 80048; 81000; 85025